=== PATIENT | male | born 1940 | race Caucasian/White ===

== ENCOUNTER → 2017-07-15 | Outpatient (CLI) | payer MEDICARE, BC ==
[2017-07-15 09:57] LABS: HCT 47.5 % (39.0-53.0); HGB 15.6 gm/dL (13.0-17.5); MCH 28.1 pg (25.0-35.0); MCHC 32.8 g/dL (31.0-37.0); MCV 85.7 fL (80.0-100.0); Platelet Count 185 k/uL (150-450); RBC 5.55 m/uL (4.30-5.90); WBC 8.9 k/uL (3.8-10.6)
[2017-07-15 10:06] LABS: INR 1.2 (<1.2); Prothrombin Time 11.7 sec (9.0-12.0)
[2017-07-15 10:17] LABS: ALT 34 U/L (21-72); AST 27 U/L (17-59); Alkaline Phosphatase 83 U/L (38-126); Anion Gap 10 mmol/L; Blood Urea Nitrogen 15 mg/dL (9-20); Calcium 9.3 mg/dL (8.4-10.2); Carbon Dioxide 29 mmol/L (22-30); Chloride 104 mmol/L (98-107); Glucose 101 mg/dL (74-99); Potassium 3.8 mmol/L (3.5-5.1); Sodium 143 mmol/L (137-145); Total Bilirubin 1.3 mg/dL (0.2-1.3); Total Protein 6.6 g/dL (6.3-8.2)
[2017-07-15 10:19] LABS: Amorphous Sediment,Urine Rare /hpf; Appearance,Urine Clear (Clear); Bilirubin,Urine Negative (Negative); Blood,Urine Negative (Negative); Color,Urine Yellow; Glucose,Urine (UA) Negative (Negative); Hyaline Casts,Urine 1 /lpf (0-2); Ketones,Urine Negative (Negative); Leukocyte Esterase,Urine Negative (Negative); Mucus,Urine Occasional /hpf; Nitrite,Urine Negative (Negative); Protein,Urine 1+ (Negative); RBC,Urine 1 /hpf (0-5); Specific Gravity,Urine 1.012 (1.001-1.035); Squamous Epithelial Cell,Urine <1 /hpf (0-4); Urobilinogen,Urine <2.0 mg/dL (<2.0); WBC,Urine 1 /hpf (0-5)
== END | disposition home or self-care (01) ==
LOC: LABPAT 09:14
PROVIDERS: ATTEND Orthopaedic Surgery
DX: Z01.812 Encounter for preprocedural laboratory examination (principal)
CPT/HCPCS: 36415; 80053; 81001; 85027; 85610; 85730; 87070

== ENCOUNTER → 2017-07-21 | Outpatient (CLI) | payer MEDICARE, BC | END | disposition home or self-care (01) | LOC: LABWHC1 11:24 | PROVIDERS: ATTEND Orthopaedic Surgery | DX: Z01.812 Encounter for preprocedural laboratory examination (principal) | CPT/HCPCS: 36415; 86850; 86900; 86901 ==

== ENCOUNTER 2017-07-26 05:45 | Inpatient (IN) | payer MEDICARE, BC ==
[2017-07-20 12:29] VITALS: BMI 25.4
[~2017-07-26 05:45] MED LIST: ACETAMINOPHEN TAB 500 MG TAB PO ONE; MORPHINE SULFATE 4 MG/ML SYRINGE IV PRN; ROPIVACAINE 246.25 MG, EPINEPHrine 0.5 MG, KETOROLAC 30 MG, cloNIDine HCL/PF 80 MCG, WA... MISCELLANE ONE; TRANEXAMIC ACID 1,000 MG in SODIUM CHLORIDE 0.9% 50 ML IVPB ONE; ceFAZolin IN SWFI 2 GM/20 ML SYRINGE IVP ONE
[2017-07-26] MEDS: MELOXICAM 7.5 MG TAB PO ONE ×2 (06:52→10:12)
[2017-07-26] MEDS ORDERED: ONDANSETRON 4 MG/2 ML VIAL ONE (07:04)
[2017-07-26] MEDS: LACTATED RINGERS 1,000 ML IV SCH ×2 (07:05→07:24)
[2017-07-26] MEDS ORDERED: MORPHINE SULFATE/PF 10MG/10ML VL IVP PRN ×3 (07:21)
[2017-07-26] MEDS ORDERED: DIAZEPAM 5 MG TAB PO PRN ×2 (07:21)
[2017-07-26] MEDS ORDERED: HYDROcodone/APAP 5-325MG 1 EACH TAB PO PRN (07:21)
[2017-07-26] MEDS ORDERED: MAGNESIUM HYDROXIDE 2,400 MG/10 ML CUP PO PRN (07:21)
[2017-07-26] MEDS ORDERED: NALOXONE 0.4 MG/ML 1 ML VIAL IV PRN (07:21)
[2017-07-26] MEDS ORDERED: hydrOXYzine PAMOATE 25 MG CAP PO PRN (07:21)
[2017-07-26] MEDS ORDERED: TRANEXAMIC ACID 1,000 MG/10 ML VIAL ONE (07:26)
[2017-07-26] MEDS ORDERED: ePHEDrine SULFATE/0.9% NACL/PF 50 MG/5 ML SYRINGE IV ONE (07:26)
[2017-07-26] MEDS ORDERED: SODIUM CHLORIDE 0.9% IRRIG 1,000 ML BTL IRRIGATION ONE (07:26)
[2017-07-26] MEDS ORDERED: MIDAZOLAM 2 MG/2 ML VIAL ONE (07:26)
[2017-07-26] MEDS ORDERED: HEPARIN SODIUM,PORCINE 10,000 UNIT/ML 1 ML VIAL ONE (07:26)
[2017-07-26] MEDS ORDERED: SODIUM CHLORIDE 0.9% 100 ML BAG ONE (07:26)
[2017-07-26] MEDS ORDERED: ceFAZolin 3,000 MG in SODIUM CHLORIDE 0.9% IRRIGATIO 3,000 ML IRRIGATION ONE (08:10)
[2017-07-26] MEDS ORDERED: APIXABAN 5 MG TAB PO SCH (09:00)
--- NOTE | 2017-07-26 09:19 | P.OP ---
Date of Procedure: 07/26/17 Preoperative Diagnosis: Severe osteoarthritis right hip Postoperative Diagnosis: Severe osteoarthritis right hip Procedure(s) Performed: Right total hip arthroplasty with a direct anterior approach Implants: Curry and nephew Polarstem size 4 standard Curry & Nephew R3, 3 hole acetabular shell, 52 mm Curry & Nephew reflection 6.5 mm cancellus screw, 20 mm 2 Curry & Nephew R3, XLPE 20 acetabular liner Curry & Nephew Oxinium femoral head 36 m, +4 All components were press-fit. The articulation is Oxinium on polyethylene. Anesthesia: spinal Surgeon: Kvng Heaton Sprue Knocker #1: Yumiko Crockett Estimated Blood Loss (ml): 450 (198 mL returned with Cell Saver) Pathology: other (Femoral head) Condition: stable Disposition: PACU Indications for Procedure: After failure of conservative treatment we discussed the surgical and nonsurgical treatment options at length. Patient wishes to proceed with a total hip arthroplasty with a direct anterior approach. Complications specific to this procedure were discussed at length, including but not limited to infection, leg length discrepancy, dislocation, and nerve injury. Patient is aware of all these complications and informed consent was obtained Operative Findings: The operative findings are consistent with severe osteoarthritis of the right hip Description of Procedure: Patient was seen and evaluated in the preoperative area, consent was reviewed, and the surgical site was marked with a skin marker. Patient was then brought to the operating room and given prophylactic antibiotics intravenously. 1 g of Tranexamic acid was also given. A spinal anesthetic was administered by the anesthesia department. The patient was then placed on the Bluford table with the bony prominences well-padded. The hip area was then prepped and draped in usual sterile fashion. A universal timeout was then performed, which confirmed the patient's name, surgical site, ALLERGIES, and procedure being performed. Next the incision site was located at 1 cm distal and 1 cm lateral to the anterior superior iliac spine. The skin and subcutaneous tissues were sharply incised. Incision was carefully dissected down to the fascia overlying the tensor fascia brianna muscle. This fascia was then incised in line with the incision. Next, using blunt finger dissection, the tensor fascia brianna muscle was dissected off its investing fascia. The muscle was then carefully retracted laterally with a cobra retractor over the lateral neck of the femur. Next, the circumflex vessels were identified and cauterized using the AquaMantis device. The anterior hip capsule was then exposed. The capsule was then opened and an inverted T fashion. Cobra retractors were then placed intracapsularly. The proximal femur was then visualized. The femoral neck was then osteotomized appropriate level above the lesser trochanter. Small amount of traction was placed with the Bluford table. A small wedge of bone was then removed from the remaining femoral head. Next, using a corkscrew femoral head was easily removed from the acetabulum. On gross visual inspection, the femoral head had complete loss of articular cartilage in multiple periarticular osteophytes. Attention was then turned to the acetabulum. the acetabulum was exposed and any remaining labrum was excised. Sequential reaming of the acetabulum was performed using fluoroscopic guidance. When the appropriate size was reached, a trial was then placed. The position and fit of the trial was checked with fluoroscopy. The trial was then removed. Then, using fluoroscopic guidance, the final implant was impacted at 20 of anteversion and 40 of abduction, and fully seated in the acetabulum. 2 screws were then placed in the acetabulum. Again fluoroscopy was used to check position of the screws. Next, the liner was then impacted, with a 20 elevated liner located in the anterior superior quadrant. Component locking was confirmed. Attention was then directed to the femur. With the aid of the Bluford table, the femur was externally rotated to approximately 130, extended, and abducted under the opposite leg. A side hook was then placed under the proximal femur, and the side hook elevator was used to elevate the proximal femur. Retractors were then placed. A capsular release was performed, as well as a release of the conjoined tendon, which afforded excellent visualization of the proximal femur. Next, a box osteotome was used to lateralize the proximal femur. A merchandise worker was then used to locate the femoral canal. Sequential broaching was then performed with appropriate size which afforded excellent fixation in the proximal femur. A trial was then placed with appropriate head and neck, and the hip was gently reduced with the aid of the Bluford table. Fluoroscopy was then used to check position of the components, as well as to ensure equal leg lengths. The hip was then gently dislocated and the trials were then removed. Final implants were then impacted and the hip was again reduced. Final fluoroscopic x-rays confirmed that the components were in anatomic position, as well as equal leg lengths. The hip was also taken through range of motion, and found to be stable. The hip was then copiously irrigated with antibiotic solution with pulsatile lavage. The hip was then irrigated with Irrisept solution. The soft tissues were then injected with a ropivacaine solution, which consisted of 246.25 mg of ropivacaine, 0.5 mg of epinephrine, 30 mg of Toradol, 80 g of clonidine, and 48.45 mL of sterile water, for a total of 100 mL of fluid injected. A second dose of 1 g of Tranexamic acid was also given. the fascia was then closed with 2-0 strata fix suture. The subcutaneous tissue was closed with 3-0 Vicryl. The subcuticular tissue was closed with 3-0 strata fix suture. The skin was then closed with Dermabond glue and a sterile silver dressing. The patient was then transferred to the recovery room in stable condition. The intellectual property legal assistant KELSEY Leach was required due to the complexity of surgery, and the need for skilled assembler surgical garment for positioning, draping, exposure, retraction, and closure of the wound.
[2017-07-26] MEDS ORDERED: LACTATED RINGERS 1,000 ML IV ONE (09:48)
--- NOTE | 2017-07-26 09:52 | XR ---
EXAMINATION TYPE: XR Hip Limited RT DATE OF EXAM: 07/26/2017 COMPARISON: NONE HISTORY: Status post hip surgery, TECHNIQUE: One view submitted. FINDINGS: There is a prosthetic hip in near anatomic alignment. There is soft tissue edema and emphysema. IMPRESSION: 1. Postoperative change. Appears in near-anatomic alignment.
--- NOTE | 2017-07-26 14:59 | FL ---
EXAMINATION TYPE: FL guidance operating room DATE OF EXAM: 07/26/2017 CLINICAL HISTORY: Right hip replacement. TECHNIQUE: Fluoroscopy. COMPARISON: None. FINDINGS: Fluoroscopic guidance was provided during right hip replacement procedure performed by Dr. Heaton. A total of 43 seconds of fluoroscopic time was utilized during the procedure and 2 spot i ntraoperative images are acquired. IMPRESSION: As Above.
[2017-07-26] MEDS: HYDROcodone/APAP 5-325MG 1 EACH TAB PO PRN ×2 (15:29→18:39)
[2017-07-26] MEDS: ceFAZolin IN SWFI 2 GM/20 ML SYRINGE IVP SCH (15:31)
--- NOTE | 2017-07-26 16:36 | P.CONS ---
History of Present Illness - Reason for Consult Consult date: 07/26/17 Medical management - History of Present Illness 77-year-old male patient of Dr. Haley with past medical history of persistent atrial fibrillation, coronary artery disease, status post CABG, hyperlipidemia, hypertension is admitted for elective right hip total arthroplasty with interior approach for severe osteoarthritis of right hip after failing conservative management. Patient was examined postoperatively. He denies any pain at the site of incision. He is resting comfortably in bed with no complaints of chest pain or shortness of breath, nausea or vomiting, abdominal pain, bleeding from any site, history of blood clots in the past. He does provide a history of triple bypass that was done 14 years ago after abnormal stress test. He had aortic aneurysm repair 6 weeks after his CABG. Patient is a ex-smoker and smoked 1 pack a day for 20 years. He lives with his and is functionally active. Vitals are stable with heart rate ranging from 59-80. No labs available. Review of Systems Constitutional: Denies chills, Denies fever, Denies lethargy, Denies malaise, Denies poor appetite, Denies weakness, Denies weight loss Eyes: denies decreased vision, denies diplopia, denies discharge, denies pain Ears: deny: decreased hearing Ears, nose, mouth and throat: Denies dental pain, Denies headache, Denies nasal discharge, Denies nose pain Cardiovascular: Denies chest pain, Denies decreased exercise tolerance, Denies edema, Denies high blood pressure, Denies irregular heart beat, Denies palpitations, Denies paroxysmal nocturnal dyspnea, Denies rapid heart beat, Denies shortness of breath Respiratory: Denies congestion, Denies cough, Denies cough with sputum, Denies dyspnea, Denies home oxygen, Denies wheezing Gastrointestinal: Denies abdominal pain, Denies change in bowel habits, Denies coffee ground emesis, Denies early satiety, Denies excessive gas, Denies heartburn, Denies hematemesis, Denies hematochezia, Denies loss of appetite, Denies nausea, Denies vomiting Genitourinary: Denies dysuria, Denies flank pain, Denies kidney stones, Denies menorrhagia, Denies urgency, Denies urinary frequency Musculoskeletal: Denies gait dysfunction, Denies limitation of motion, Denies morning stiffness, Denies muscle cramps Integumentary: Denies rash, Denies wounds, Denies brittle nails, Denies change in hair/nails, Denies darkening of skin Neurological: Denies balance difficulties, Denies change in speech, Denies double vision, Denies gait dysfunction, Denies loss of vision, Denies motor disturbance, Denies numbness, Denies paralysis, Denies paresthesias, Denies seizures Psychiatric: Denies anxiety, Denies depression Endocrine: Denies excessive sweating, Denies excessive thirst, Denies high blood sugars, Denies palpitations Hematologic/Lymphatic: Denies easy bruising, Denies lymphadenopathy Past Medical History Past Medical History: Atrial Fibrillation, Coronary Artery Disease (CAD), Hyperlipidemia, Hypertension, Myocardial Infarction ([place]), Osteoarthritis ([place]) Last Myocardial Infarction Date:: unknown History of Any Multi-Drug Resistant Organisms: None Reported Past Surgical History: Coronary Bypass/CABG, Heart Catheterization With Stent Additional Past Surgical History / Comment(s): triple bypass 14 years ago, aortic aneurysm repair, TRHA Past Anesthesia/Blood Transfusion Reactions: No Reported Reaction Date of Last Stent Placement:: unknown Past Psychological History: No Psychological Hx Reported Smoking Status: Former smoker Past Alcohol Use History: None Reported Additional Past Alcohol Use History / Comment(s): quit smoking 14 yrs. ago, 1ppd for 40 yrs. Past Drug Use History: None Reported - Past Family History Mother Family Medical History: No Reported History Father Family Medical History: Hypertension Additional Family Medical History / Comment(s): Patient states that his parents never went to the doctor. He thinks his father of hypertensive disease. He does not know much about his mother. Denies any significant medical history in siblings, is and has kids with no significant medical Medications and Allergies Home Medications Medication Instructions Recorded Confirmed Type Apixaban [Eliquis] 5 mg PO BID 07/21/17 07/26/17 History Atenolol [Tenormin] 50 mg PO BID 07/21/17 07/26/17 History Glucosamine Sulfate 500 mg PO DAILY 07/21/17 07/26/17 History Losartan [Cozaar] 12.5 mg PO DAILY 07/21/17 07/26/17 History Pravastatin Sodium [Pravachol] 40 mg PO HS 07/21/17 07/26/17 History Terazosin [Hytrin] 5 mg PO DAILY 07/21/17 07/26/17 History amLODIPine [Norvasc] 10 mg PO DAILY 07/21/17 07/26/17 History Allergies Allergy/AdvReac Type Severity Reaction Status Date / Time No Known Allergies Allergy Verified 07/26/17 10:19 Physical Exam Vitals: Vital Signs Temp Pulse Pulse Pulse Resp BP BP 07/26/17 14:45 98.2 F 59 L 16 128/79 07/26/17 12:10 73 116/69 07/26/17 12:09 59 L 110/69 07/26/17 12:00 80 108/75 07/26/17 11:45 53 L 111/72 07/26/17 11:15 62 115/71 07/26/17 11:00 76 107/68 07/26/17 10:45 77 115/70 07/26/17 10:30 77 111/70 07/26/17 10:15 97.6 F 70 16 111/69 07/26/17 10:00 75 16 124/72 07/26/17 09:45 77 16 130/72 07/26/17 09:30 82 16 116/62 07/26/17 09:25 97.1 F L 64 18 118/71 07/26/17 06:32 97.8 F 76 18 137/72 Pulse Ox 07/26/17 14:45 98 07/26/17 12:10 07/26/17 12:09 07/26/17 12:00 07/26/17 11:45 07/26/17 11:15 07/26/17 11:00 07/26/17 10:45 07/26/17 10:30 07/26/17 10:15 92 L 07/26/17 10:00 97 07/26/17 09:45 97 07/26/17 09:30 07/26/17 09:25 95 07/26/17 06:32 96 Intake and Output 07/26/17 07/26/17 07/26/17 06:59 14:59 22:59 Intake Total 1001 Output Total 450 Balance 551 Intake: IV 1001 Output: Estimated Blood Loss 450 Other: Weight 78.018 kg - Constitutional General appearance: cooperative, no acute distress, obese - EENT Eyes: anicteric sclerae, PERRLA, normal appearance ENT: hearing grossly normal - Neck Neck: no lymphadenopathy, normal ROM, no other, no rigidity, no stridor, no thyromegaly - Respiratory Respiratory: bilateral: CTA, negative: diminished, dullness, rales, rhonchi - Cardiovascular Rhythm: Irregularly irregular, rate controlled Heart sounds: normal: S1, S2 Abnormal Heart Sounds: no systolic murmur, no diastolic murmur, no rub, no S3 Gallop, no S4 Gallop, no click, no other - Gastrointestinal General gastrointestinal: normal bowel sounds, soft - Integumentary Integumentary: no rash - Neurologic Neurologic: CNII-XII intact - Musculoskeletal Musculoskeletal: Right hip with Site of incision with no overlying erythema or tenderness. strength equal bilaterally - Psychiatric Psychiatric: A&O x's 3, appropriate affect Assessment and Plan Plan: #1 postoperative day 0 right total hip arthroplasty with anterior approach for severe osteoarthritis of right hip. Pain control as per primary team. Patient would need anticoagulation. He is on an eliquis at home for his atrial fibrillation. PTOT consult, encourage ambulation. Incentive spirometry for pulmonary prophylaxis. I will start patient on bowel regimen as patient is on a medication #2 atrial fibrillation, rate controlled. Continue eliquis 5 mg twice a day. I switched patient's atenolol to metoprolol 12.5 mg twice a day for better rate control #3 hypertension continue Norvasc and losartan #4 coronary artery disease status post CABG continue pravastatin, metoprolol, and eliquis #4 BPH continue terazosin 5 mg by mouth daily #5 GI prophylaxis with Pepcid 20 mg daily CODE STATUS full code Thank you for the consult I would be happy to assist you in patient's medical need while they are in hospital
[2017-07-26] MEDS: METOPROLOL TARTRATE 12.5 MG TAB PO SCH (20:24)
[2017-07-26] MEDS ORDERED: SENNOSIDES-DOCUSATE SODIUM 1 EACH TAB PO SCH (21:00)
[2017-07-26] MEDS ORDERED: PRAVASTATIN SODIUM 40 MG TAB PO SCH (21:00)
[2017-07-26] MEDS ORDERED: ATENOLOL 50 MG TAB PO SCH (21:00)
[2017-07-26] MEDS: SODIUM CHLORIDE 0.9% 1,000 ML IV SCH (21:39)
[2017-07-27] MEDS: ceFAZolin IN SWFI 2 GM/20 ML SYRINGE IVP SCH (00:22)
[2017-07-27] MEDS: LACTATED RINGERS 1,000 ML IV SCH (00:23)
[2017-07-27] MEDS: SODIUM CHLORIDE 0.9% 1,000 ML IV SCH (00:25)
[2017-07-27 02:55] VITALS: RESP 16
[2017-07-27] MEDS: HYDROcodone/APAP 5-325MG 1 EACH TAB PO PRN (07:21)
[2017-07-27] MEDS: METOPROLOL TARTRATE 12.5 MG TAB PO SCH (07:23)
[2017-07-27 08:21] VITALS: BP 136/82; PULSE 92; TEMP 97.1
[2017-07-27 08:43] LABS: Basophils % (A) 0 %; Eosinophils # (A) 0.1 k/uL (0-0.7); Eosinophils % (A) 1 %; HGB 12.7 gm/dL (13.0-17.5); Lymphocytes # (A) 0.6 k/uL (1.0-4.8); Lymphocytes % (A) 7 %; MCH 28.5 pg (25.0-35.0); MCHC 34.2 g/dL (31.0-37.0); MCV 83.4 fL (80.0-100.0); Mean Platelet Volume 7.9; Monocytes # (A) 0.6 k/uL (0-1.0); Monocytes % (A) 7 %; Neutrophils # (A) 7.1 k/uL (1.3-7.7); Neutrophils % (A) 83 %; Platelet Count 150 k/uL (150-450); RBC 4.43 m/uL (4.30-5.90); RDW 13.7 % (11.5-15.5); WBC 8.5 k/uL (3.8-10.6)
[2017-07-27] MEDS ORDERED: FAMOTIDINE 20 MG TAB PO SCH (09:00)
[2017-07-27] MEDS ORDERED: APIXABAN 5 MG TAB PO SCH (09:00)
[2017-07-27] MEDS ORDERED: amLODIPine 10 MG TAB PO SCH (09:00)
[2017-07-27] MEDS ORDERED: LOSARTAN 25 MG TAB PO SCH (09:00)
[2017-07-27] MEDS ORDERED: DOXAZOSIN 4 MG TAB PO SCH (09:00)
--- NOTE | 2017-07-27 09:20 | P.DS ---
Providers Date of admission: 07/26/17 05:45 Expected date of discharge: 07/27/17 Attending physician: Kvng Heaton Consults: 07/26/17 07:21 Consult Physician Routine Consulting Provider: Isaiah Haley Consult Reason/Comments: medical management Do you want consulting provider notified?: Yes Primary care physician: Isaiah Haley - Discharge Diagnosis(es) (1) Primary osteoarthritis of right hip Current Visit: Yes Status: Acute (2) S/P total hip arthroplasty Current Visit: Yes Status: Acute Hospital Course: This is a 77-year-old male with known history of degenerative arthritis of the right hip. The patient presents for evaluation. After discussion and consideration patient elects to proceed with total hip arthroplasty. The patient is seen preoperatively by Dr. Heaton and medically cleared for surgery by their primary care physician. Patient is admitted to [facility] on 07/26/2017 for total hip arthroplasty. The procedures performed without complication or sequelae. The patient is doing well postoperatively. Labs and vital signs are stable on day of discharge. On day of discharge patient's hip incision is healing well. There is minimal erythema. There is no drainage noted at this time. There is minimal soft tissue swelling to the hip and thigh. Patient has full foot and ankle motion without difficulty or pain. Neurovascular status to the right lower extremity is intact. Patient is discharged home in good condition. Please see med rec for accurate list of home medications. Plan - Discharge Summary Discharge Rx Participant: Yes New Discharge Prescriptions: New Apixaban [Eliquis] 5 mg PO BID #60 tab HYDROcodone/APAP 5-325MG [[place] 5-325] 1 - 2 tab PO Q4-6H PRN #90 tab PRN Reason: Pain Sennosides [Senokot] 1 tab PO BID #60 tablet No Action Terazosin [Hytrin] 5 mg PO DAILY Pravastatin Sodium [Pravachol] 40 mg PO HS amLODIPine [Norvasc] 10 mg PO DAILY Losartan [Cozaar] 12.5 mg PO DAILY Glucosamine Sulfate 500 mg PO DAILY Atenolol [Tenormin] 50 mg PO BID Apixaban [Eliquis] 5 mg PO BID Discharge Medication List Apixaban [Eliquis] 5 mg PO BID 07/21/17 [History] Atenolol [Tenormin] 50 mg PO BID 07/21/17 [History] Glucosamine Sulfate 500 mg PO DAILY 07/21/17 [History] Losartan [Cozaar] 12.5 mg PO DAILY 07/21/17 [History] Pravastatin Sodium [Pravachol] 40 mg PO HS 07/21/17 [History] Terazosin [Hytrin] 5 mg PO DAILY 07/21/17 [History] amLODIPine [Norvasc] 10 mg PO DAILY 07/21/17 [History] Apixaban [Eliquis] 5 mg PO BID #60 tab 07/27/17 [Rx] HYDROcodone/APAP 5-325MG [Macon 5-325] 1 - 2 tab PO Q4-6H PRN #90 tab 07/27/17 [ Rx] Sennosides [Senokot] 1 tab PO BID #60 tablet 07/27/17 [Rx] Follow up Appointment(s)/Referral(s): [facility], [NON-STAFF] - Kvng Heaton DO [Doctor of Osteopathic Medicine] - 2 Weeks Activity/Diet/Wound Care/Special Instructions: Weightbearing as tolerated with walker Leave dressing intact. Dressing may be removed by home care nurse in 10-14 days. May shower with dressing on. Follow-up with [facility] in 2 weeks, please call with any questions or concerns [phone] Discharge Disposition: HOME WITH HOME HEALTH SERVICES
== END 2017-07-27 14:50 | disposition home health service (06) | DRG 470 ==
LOC: 2ORMAIN 05:45 → 3SUR 09:17
PROVIDERS: ADMIT Orthopaedic Surgery; ATTEND Orthopaedic Surgery
PROC: 30233N0 Transfusion of Autologous Red Blood Cells into Peripheral Vein, Percutaneous Approach (ICD-10-PCS; 2017-07-26)
PROC: 0SR906A Replacement of Right Hip Joint with Oxidized Zirconium on Polyethylene Synthetic Substitute, Uncemented, Open Approach (ICD-10-PCS; principal; 2017-07-26 07:30)
DX: M16.11 Unilateral primary osteoarthritis, right hip (principal); I48.1 Persistent atrial fibrillation; I25.10 Atherosclerotic heart disease of native coronary artery without angina pectoris; E78.2 Mixed hyperlipidemia; M25.751 Osteophyte, right hip; I48.2 Chronic atrial fibrillation; N40.0 Benign prostatic hyperplasia without lower urinary tract symptoms; H91.90 Unspecified hearing loss, unspecified ear; I10 Essential (primary) hypertension; Z87.891 Personal history of nicotine dependence; I25.2 Old myocardial infarction; Z95.1 Presence of aortocoronary bypass graft; Z82.49 Family history of ischemic heart disease and other diseases of the circulatory system; Z79.899 Other long term (current) drug therapy; Z79.01 Long term (current) use of anticoagulants; Z79.82 Long term (current) use of aspirin; Z83.3 Family history of diabetes mellitus; Z86.79 Personal history of other diseases of the circulatory system; Z95.5 Presence of coronary angioplasty implant and graft
CPT/HCPCS: 36415; 73501; 85025; 86850; 86891; 86900; 86901; 88300

== ENCOUNTER → 2018-02-04 | Outpatient (CLI) | payer MEDICARE, BC ==
--- NOTE | 2018-02-05 19:15 | CT ---
EXAMINATION TYPE: CT abdomen pelvis w con DATE OF EXAM: 02/04/2018 COMPARISON: None HISTORY: Left lower quadrant pain for one week. History of abdominal aortic aneurysm with stent place ment. CT DLP: 1089 mGycm Automated exposure control for dose reduction was used. TECHNIQUE: Helical acquisition of images was performed from the lung bases through the pelvis. CONTRAST: Performed with Oral Contrast and with IV Contrast, patient injected with 100 mL of Isovue 300. FINDINGS: LUNG BASES: Motion artifact is seen in addition to bibasilar subsegmental atelectasis. LIVER/GB: The liver is grossly unremarkable. Gallbladder is elongated measuring 0.6 cm although the c ommon bile duct appears nondilated and there are no right upper quadrant fat stranding changes. PANCREAS: No significant abnormality is seen. SPLEEN: Hypoattenuated subcentimeter lesion is seen within the spleen near the dome of the diaphragm likely related to a small cyst. ADRENALS: Indeterminant 2.2 cm left adrenal gland nodule meets from the lateral odette and right adrena l gland indeterminate nodule measuring proximally 1.3 cm emanates from the right adrenal gland as wel l. These are incompletely characterized. KIDNEYS: There is severe left cortical renal atrophy. A 3.9 cm renal cyst emanates from the posterior left kidney. No hydronephrosis bilaterally. Right kidney is unremarkable although there is suspicion for a 2 mm nonobstructing right lower pole renal calculus. FREE AIR: No free air is visualized. REPRODUCTIVE ORGANS: Prostate gland is obscured by spray artifact from the right hip arthroplasty. URINARY BLADDER: Circumferential thickening may relate to incomplete distention or cystitis. Correla te with urinalysis.. ADENOPATHY: No greater than 1 cm short axis lymph node is identified within the abdomen or pelvis OSSEOUS STRUCTURES: Right hip arthroplasty is present crating extensive spray artifact and partially limiting evaluation of the pelvis. Multilevel moderate degenerative changes of the osseous structure s are seen. BOWEL: There is a moderate hiatal hernia. Multiple colonic diverticula are scattered throughout the colon without pericolonic fat stranding. Slight nodular thickening is seen at the junction of the vladimir cending colon and sigmoid colon possibly related to incomplete distention. Moderate colonic stool bur den partially limits evaluation. There are multiple loops of prominent and some loops of dilated smal l bowel containing air-fluid levels the largest within the left mid abdomen measuring 4.3 cm, however contrast does extend beyond the loops into the large bowel and therefore complete obstruction is exc luded. Few loops of small bowel within the left midabdomen also display bowel wall thickening. 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 1.8 cm in size. Ectasia of the thoracic aorta just before the diaphragmatic hiatus is seen measuring 3.2 cm. Extensiv e calcific and noncalcific mural plaquing is seen of the abdominal aorta and its branches. Endograft begins just below the level of the renal arteries and extends into the iliac arteries and appears pat ent. Infrarenal abdominal aortic aneurysm measures up to 3.9 x 3.9 cm extending approximately 7 cm in length. This is a fusiform aneurysm. Saccular outpouching is also seen just below the right renal ar han where the aorta measures 3.0 cm on coronal series 5 image 54. IMPRESSION: 1. Multiple loops of matted small bowel in the left mid abdomen with few mildly dilated loops of smal l bowel, air-fluid levels and some small bowel loops contain bowel wall thickening. Enteritis of infe ctious or inflammatory etiology is suspected. There is also mesenteric congestion in this region. Mil d ileus is also present with complete obstruction excluded as contrast extends into the colon. 2. Indeterminant adrenal gland nodules for which full characterization with dynamic enhanced CT abdom en or MR abdomen is recommended. 3. 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 4. Infrarenal saccular outpouching of the abdominal aorta and infrarenal abdominal aortic aneurysm wi th aortoiliac endograft. Mechoopda aortic lumen measures up to 3.9 x 3.9 cm.
== END | disposition home or self-care (01) ==
LOC: RADCTMAIN 14:37
PROVIDERS: ATTEND Internal Medicine
DX: R10.30 Lower abdominal pain, unspecified (principal); K63.89 Other specified diseases of intestine; R91.8 Other nonspecific abnormal finding of lung field; I70.8 Atherosclerosis of other arteries; I71.4 Abdominal aortic aneurysm, without rupture; I77.4 Celiac artery compression syndrome
CPT/HCPCS: 74177; Q9967

== ENCOUNTER 2018-02-05 23:36 | Inpatient (IN) | payer MEDICARE, BC ==
[2018-02-05] MEDS ORDERED: ASPIRIN 81 MG PO STA (23:57)
[2018-02-06] MEDS ORDERED: ONDANSETRON 4 MG/2 ML VIAL IVP STA (00:08)
[2018-02-06 00:22] LABS: Basophils % (A) 0 %; Eosinophils # (A) 0.1 k/uL (0-0.7); Eosinophils % (A) 1 %; HCT 46.1 % (39.0-53.0); HGB 15.1 gm/dL (13.0-17.5); Lymphocytes # (A) 0.7 k/uL (1.0-4.8); Lymphocytes % (A) 6 %; MCH 27.9 pg (25.0-35.0); MCHC 32.8 g/dL (31.0-37.0); MCV 85.1 fL (80.0-100.0); Mean Platelet Volume 8.3; Monocytes # (A) 0.4 k/uL (0-1.0); Monocytes % (A) 3 %; Neutrophils # (A) 10.3 k/uL (1.3-7.7); Neutrophils % (A) 89 %; Platelet Count 171 k/uL (150-450); RBC 5.41 m/uL (4.30-5.90); RDW 13.6 % (11.5-15.5); WBC 11.6 k/uL (3.8-10.6)
--- NOTE | 2018-02-06 00:31 | XR ---
EXAMINATION TYPE: XR chest 2V DATE OF EXAM: 02/06/2018 COMPARISON: NONE HISTORY: Chest pain TECHNIQUE: Frontal and lateral views of the chest are obtained. FINDINGS: Heart is enlarged. There is no gross heart failure. There is poor inspiration. There are s ternal wires. There are chest leads. Thoracic aorta is atheromatous. There is linear density in the l eft lower lobe. IMPRESSION: No heart failure. There is some mild linear infiltrate and atelectasis in the left lower lobe.
[2018-02-06 00:32] LABS: Albumin 3.3 g/dL (3.5-5.0); Calcium 8.5 mg/dL (8.4-10.2); INR 1.3 (<1.2); Magnesium 2.1 mg/dL (1.6-2.3); Partial Thromboplastin Time 24.7 sec (22.0-30.0); Prothrombin Time 12.2 sec (9.0-12.0); Total Bilirubin 2.2 mg/dL (0.2-1.3); Total Protein 5.8 g/dL (6.3-8.2)
[2018-02-06 00:42] LABS: Creatine Kinase 86 U/L (55-170)
[2018-02-06 00:55] LABS: Creatine Kinase MB 3.5 ng/mL (0.0-2.4); Troponin I <0.012 ng/mL (0.000-0.034)
[2018-02-06 01:01] LABS: Potassium 3.8 mmol/L (3.5-5.1)
--- NOTE | 2018-02-06 01:22 | ED ---
General Adult HPI - General Chief complaint: Abdominal Pain Stated complaint: Chest Pain Source: patient, EMS Mode of arrival: EMS Limitations: no limitations - History of Present Illness Initial comments: Dictation was produced using [employer] dictation software. please excuse any grammatical, word or spelling errors. Chief Complaint: 78-year-old male past medical history of A. fib, coronary artery disease, distal edema, hypertension presents with epigastric abdominal pain. History of Present Illness: States that his symptoms began approximately 10 PM today. Patient state he ate of being hot dog and a salad prior to the onset of symptoms. Several minutes later he began having epigastric pain. Patient has similar episode approximately 1 week ago. Patient's feeling nauseous however has not have any episodes of emesis. Patient has been having bowel movements. Patient localizes the pain to his epigastric area with radiation to the back. She denies abdominal surgery. The ROS documented in this emergency department record has been reviewed and confirmed by me. Those systems with pertinent positive or negative responses have been documented in the HPI. All other systems are other negative and/or noncontributory. - Related Data Home Medications Medication Instructions Recorded Confirmed Apixaban [Eliquis] 5 mg PO BID 07/21/17 07/26/17 Glucosamine Sulfate 500 mg PO DAILY 07/21/17 07/26/17 Losartan [Cozaar] 12.5 mg PO DAILY 07/21/17 07/26/17 Pravastatin Sodium [Pravachol] 40 mg PO HS 07/21/17 07/26/17 Terazosin [Hytrin] 5 mg PO DAILY 07/21/17 07/26/17 amLODIPine [Norvasc] 10 mg PO DAILY 07/21/17 07/26/17 Previous Rx's Medication Instructions Recorded Apixaban [Eliquis] 5 mg PO BID #60 tab 07/27/17 HYDROcodone/APAP 5-325MG [[place] 1 - 2 tab PO Q4-6H PRN #90 tab 07/27/17 5-325] Metoprolol Tartrate [Lopressor] 12.5 mg PO BID #60 dose 07/27/17 Sennosides [Senokot] 1 tab PO BID #60 tablet 07/27/17 Allergies Allergy/AdvReac Type Severity Reaction Status Date / Time No Known Allergies Allergy Verified 07/26/17 10:19 Review of Systems ROS Statement: Those systems with pertinent positive or pertinent negative responses have been documented in the HPI. ROS Other: All systems not noted in ROS Statement are negative. Past Medical History Past Medical History: Atrial Fibrillation, Coronary Artery Disease (CAD), Hyperlipidemia, Hypertension, Myocardial Infarction (VA), Osteoarthritis (OA) Last Myocardial Infarction Date:: unknown History of Any Multi-Drug Resistant Organisms: None Reported Past Surgical History: Coronary Bypass/CABG, Heart Catheterization With Stent Additional Past Surgical History / Comment(s): triple bypass 14 years ago, aortic aneurysm repair, TRHA Past Anesthesia/Blood Transfusion Reactions: No Reported Reaction Date of Last Stent Placement:: unknown Past Psychological History: No Psychological Hx Reported Smoking Status: Former smoker Past Alcohol Use History: None Reported Past Drug Use History: None Reported - Past Family History Mother Family Medical History: No Reported History Father Family Medical History: Hypertension Additional Family Medical History / Comment(s): Patient states that his parents never went to the doctor. He thinks his father of hypertensive disease. He does not know much about his mother. Denies any significant medical history in siblings, is and has kids with no significant medical General Exam - General Exam Comments Initial Comments: PHYSICAL EXAM: General Impression: Alert and oriented x3, acute distress secondary to pain HEENT: Normocephalic atraumatic, extra-ocular movements intact, pupils equal and reactive to light bilaterally, mucous membranes moist. Cardiovascular: Heart regular rate and rhythm, S1&S2 audible, no murmurs, rubs or gallops Chest: Lungs clear to auscultation bilaterally, no rhonchi, no wheeze, no rales Abdomen: Distended abdomen, tympanitic to percussion tenderness to palpation diffusely worse in the epigastric area Musculoskeletal: Pulses present and equal in all extremities, no peripheral edema Motor: Power 5/5 bilaterally, no focal deficits noted Neurological: CN II-XII grossly intact, no focal motor or sensory deficits noted Skin: Intact with no visualized rashes Psych: Normal affect and mood Limitations: no limitations Course Vital Signs 02/05/18 02/06/18 23:37 03:54 Pulse Rate 79 83 Respiratory 18 18 Rate Blood Pressure 147/89 116/68 O2 Sat by Pulse 97 97 Oximetry Medical Decision Making - Medical Decision Making ED course: 78-year-old male presents with chief complaint of abdominal pain. Vital signs upon arrival are within acceptable limits. Patient is not febrile. Laboratory evaluation obtained. Leukocytosis of 11.6. Coag panel shows an INR of 1.3. Metabolic panel is unremarkable except for some hyperglycemia 156 per total bilirubin is 2.2, alk phos is 186. Cardiac enzymes are negative. Lipase of 528. EKG does not show any signs of VA versus ischemia. Laboratory evaluation obtained. Leukocytosis of 11.6. Coag panel is unremarkable. Metabolic panel is positive for total bilirubin of 2.2. There is mild transaminitis. Lipase of 528. Abdominal x-ray was obtained showing small bowel ileus. There was concern of gallbladder pathology given patient had postprandial symptoms. Ultrasound was suggestive of cholecystitis. Discussed patient case with general surgeon who requests patient be admitted to medicine service with general surgery consult. General surgery also requests cardiology consult for cardiac clearance. She started on antibiotics. She'll be admitted to medicine. EKG Interpretation: A 12 lead EKG was obtained. It was interpreted by myself and attending physician. There is a P wave before every QRS complex. Rate is 80. Rhythm is fibrillation, QRS 114, QTc 472.. QT is not prolonged. No ST segment depression or elevation. . Overall, this EKG is unremarkable - Lab Data Result diagrams: 02/06/18 00:05 02/06/18 00:05 Lab Results 02/06/18 02/06/18 02/06/18 Range/Units 00:05 00:05 00:05 WBC 11.6 H (3.8-10.6) k/uL RBC 5.41 (4.30-5.90) m/uL Hgb 15.1 (13.0-17.5) gm/dL Hct 46.1 (39.0-53.0) % MCV 85.1 (80.0-100.0) fL MCH 27.9 (25.0-35.0) pg MCHC 32.8 (31.0-37.0) g/dL RDW 13.6 (11.5-15.5) % Plt Count 171 (150-450) k/uL Neutrophils % 89 % Lymphocytes % 6 % Monocytes % 3 % Eosinophils % 1 % Basophils % 0 % Neutrophils # 10.3 H (1.3-7.7) k/uL Lymphocytes # 0.7 L (1.0-4.8) k/uL Monocytes # 0.4 (0-1.0) k/uL Eosinophils # 0.1 (0-0.7) k/uL Basophils # 0.0 (0-0.2) k/uL PT (9.0-12.0) sec INR (<1.2) APTT (22.0-30.0) sec Sodium 138 (137-145) mmol/L Potassium 3.8 (3.5-5.1) mmol/L Chloride 103 (98-107) mmol/L Carbon Dioxide 26 (22-30) mmol/L Anion Gap 9 mmol/L BUN 27 H (9-20) mg/dL Creatinine 0.95 (0.66-1.25) mg/dL Est GFR (CKD-EPI)AfAm 88 (>60 ml/min/1.73 sqM) Est GFR (CKD-EPI)NonAf 76 (>60 ml/min/1.73 sqM) Glucose 156 H (74-99) mg/dL Calcium 8.5 (8.4-10.2) mg/dL Magnesium 2.1 (1.6-2.3) mg/dL Total Bilirubin 2.2 H (0.2-1.3) mg/dL AST 142 H (17-59) U/L ALT 65 (21-72) U/L Alkaline Phosphatase 186 H (38-126) U/L Total Creatine Kinase 86 (55-170) U/L CK-MB (CK-2) 3.5 H (0.0-2.4) ng/mL CK-MB (CK-2) Rel Index 4.1 Troponin I <0.012 (0.000-0.034) ng/mL Total Protein 5.8 L (6.3-8.2) g/dL Albumin 3.3 L (3.5-5.0) g/dL Lipase 528 H (23-300) U/L 02/06/18 Range/Units 00:05 WBC (3.8-10.6) k/uL RBC (4.30-5.90) m/uL Hgb (13.0-17.5) gm/dL Hct (39.0-53.0) % MCV (80.0-100.0) fL MCH (25.0-35.0) pg MCHC (31.0-37.0) g/dL RDW (11.5-15.5) % Plt Count (150-450) k/uL Neutrophils % % Lymphocytes % % Monocytes % % Eosinophils % % Basophils % % Neutrophils # (1.3-7.7) k/uL Lymphocytes # (1.0-4.8) k/uL Monocytes # (0-1.0) k/uL Eosinophils # (0-0.7) k/uL Basophils # (0-0.2) k/uL PT 12.2 H (9.0-12.0) sec INR 1.3 H (<1.2) APTT 24.7 (22.0-30.0) sec Sodium (137-145) mmol/L Potassium (3.5-5.1) mmol/L Chloride (98-107) mmol/L Carbon Dioxide (22-30) mmol/L Anion Gap mmol/L BUN (9-20) mg/dL Creatinine (0.66-1.25) mg/dL Est GFR (CKD-EPI)AfAm (>60 ml/min/1.73 sqM) Est GFR (CKD-EPI)NonAf (>60 ml/min/1.73 sqM) Glucose (74-99) mg/dL Calcium (8.4-10.2) mg/dL Magnesium (1.6-2.3) mg/dL Total Bilirubin (0.2-1.3) mg/dL AST (17-59) U/L ALT (21-72) U/L Alkaline Phosphatase (38-126) U/L Total Creatine Kinase (55-170) U/L CK-MB (CK-2) (0.0-2.4) ng/mL CK-MB (CK-2) Rel Index Troponin I (0.000-0.034) ng/mL Total Protein (6.3-8.2) g/dL Albumin (3.5-5.0) g/dL Lipase (23-300) U/L Disposition Clinical Impression: Cholecystitis Disposition: ADMITTED IP TO THIS [facility] Condition: Fair Referrals: Isaiah Haley MD [Primary Care Provider] - 1-2 days Decision Time: 04:04
--- NOTE | 2018-02-06 02:00 | XR ---
EXAMINATION TYPE: XR abdomen 1V DATE OF EXAM: 02/06/2018 COMPARISON: NONE HISTORY: Abdominal pain TECHNIQUE: 2 views supine FINDINGS: There is some contrast in the large bowel. There is no evidence of a mechanical bowel obstr uction. There is right hip prosthesis. There is vascular calcification. I see no evidence of pneumope ritoneum. Lung bases appear clear of consolidation. There is some distended gas-filled loop of small bowel in the mid abdomen. IMPRESSION: There is probably some small bowel ileus. No free air.
--- NOTE | 2018-02-06 03:18 | US ---
EXAMINATION TYPE: US abdomen complete DATE OF EXAM: 02/06/2018 COMPARISON: CT 02/04/2018 CLINICAL HISTORY: Pain. Mid abd pain EXAM MEASUREMENTS: US exam is technically limited due to overlying bowel gas. Liver Length: 15.4 cm Gallbladder Wall: 0.3 cm CBD: 0.6 cm Spleen: 11.8 cm Right Kidney: 13.7 x 7.0 x 6.4 cm Left Kidney: 12.5 x 6.6 x 5.7 cm Pancreas: Obscured by bowel gas Liver: limited views as was scanned intercostally Gallbladder: internal contents with sludge appearance with non mobility of contents due to decreased patient positioning due to pain; increased length as > 10.0cm for consideration of hydropic gallblad yuli; wall at upper limits of normal Evidence for sonographic Calderon's sign: tender here CBD: upper limites of normal Spleen: wnl Right Kidney: couple of cortical cysts seen with larger medial mid pole = 1.1 x 0.8 x 0.7cm; hyperec hoic focus with shadowing, noted in lower pole may correspond to CT finding of small renal calculus Left Kidney: distorted appearance to cortex; couple of cortical cysts with larger simple cyst size = 3.0 x 2.9 x 3.6cm Upper IVC: wnl Abd Aorta: only small upper portion seen due to overlying bowel gas IMPRESSION: Dilated gallbladder suggestive of cholecystitis and cystic duct obstruction. No dilated d ucts. Bilateral renal cortical cysts measure up to 3 cm. No hydronephrosis. Small calculus lower pole of the right kidney. Significant cortical thinning seen in the left kidney. Gallbladder is probably not changed in size compared to CT scan 02/04/2018.
[2018-02-06] MEDS ORDERED: metroNIDAZOLE-NS PMX 500 MG in SALINE 1 100ML.BAG IVPB STA (03:24)
[2018-02-06] MEDS ORDERED: NALOXONE 0.4 MG/ML 1 ML VIAL IV PRN (04:00)
[2018-02-06] MEDS ORDERED: MORPHINE SULFATE 4 MG/ML SYRINGE IVP PRN (04:32)
[2018-02-06] MEDS ORDERED: ONDANSETRON 4 MG/2 ML VIAL IVP PRN (04:34)
[2018-02-06 05:26] VITALS: BMI 22.3
--- NOTE | 2018-02-06 09:34 | CONS ---
CONSULTATION CHIEF COMPLAINT: Preop cardiac evaluation. HISTORY: Mr. Lyman is a 78-year-old gentleman with history of chronic atrial fibrillation, who follows with my associate, Dr. VC Faye, on a regular basis. He has presented to hospital with abdominal pain and has elevated liver enzymes. The patient is currently being considered for possible cholecystectomy. His cardiac history is significant for chronic atrial fibrillation, for which he takes Eliquis, and coronary artery disease, status post bypass surgery. The patient denies chest pain, difficulty in breathing, palpitations, dizziness or syncope. The patient had an echocardiogram and stress test in July of this year prior to hip replacement and apparently stress test was unremarkable. EKG shows atrial fibrillation with controlled ventricular rate. He last took his Eliquis yesterday evening. Clinically patient is fairly active and is free of symptoms. PAST MEDICAL HISTORY: Significant for coronary artery disease status post CABG, hypertension, dyslipidemia, chronic atrial fibrillation. MEDICATIONS: 1. Eliquis 5 b.i.d. 2. Norvasc 10 daily. 3. Hytrin 5 daily. 4. Senokot. 5. Pravachol. 6. Lopressor. 7. Cozaar. ALLERGIES: There are no known drug allergies. FAMILY HISTORY: Negative for premature coronary artery disease. SOCIAL HISTORY: Negative for smoking, EtOH abuse, or drug abuse. REVIEW OF SYSTEMS: HEENT is unremarkable. CARDIAC: As described above. RESPIRATORY: Negative. GI: Significant for abdominal pain. GENITOURINARY: Negative. ALLERGY/MUSCULOSKELETAL: Significant for arthritis. PSYCH/SOCIAL: Negative. HEMATOLOGIC: Negative. CONSTITUTIONAL: Negative. ONCOLOGIC: Negative. ENVIRONMENTAL COMPLIANCE MANAGER: Negative. The rest of the system review is not relevant. EXAM: Comfortable at rest. Vital signs are stable. There is no jugular venous distention. Chest exam reveals good air entry bilaterally. Heart exam reveals first and second heart sounds, irregular rhythm, and a systolic murmur at the apex. Abdomen is soft, nontender. Exam of the extremities did not reveal any edema. Peripheral pulses are felt. LABS: Hemoglobin is 15.1, platelet count is 170,000. Potassium is 3.8, creatinine is 0.95. AST is 142, ALT 65, bilirubin is elevated. Troponin is negative. ASSESSMENT: 1. Preoperative cardiac evaluation. 2. Chronic atrial fibrillation. 3. Coronary artery disease, status post coronary artery bypass grafting. 4. Acute cholecystitis. PLAN: From cardiac standpoint, the patient is an acceptable risk candidate for surgery under anesthesia. The patient is clinically better. Resume the Norvasc, Lopressor, and Cozaar that he was on. Hold the Pravachol until the surgery is done. Please hold the Eliquis at this time. Ideally the patient should hold the Eliquis for 48 hours prior to surgery. Thank you for giving us the privilege to participate in the care of this pleasant gentleman. MMYNESL / IJN: [id number] /
[2018-02-06] MEDS ORDERED: DOXAZOSIN 4 MG TAB PO STA (11:23)
--- NOTE | 2018-02-06 11:31 | CONS ---
CONSULTATION DATE OF DICTATION: February 06, 2018. REQUESTING PHYSICIAN: Dr. Haley. REASON FOR CONSULTATION: Epigastric pain and elevated LFTs. HISTORY OF PRESENT ILLNESS: The patient is a 78-year-old pleasant white male who was admitted to the hospital with acute onset of severe epigastric pain that started at 9:00 pm yesterday. The patient has history of atrial fibrillation on Eliquis. The pain began around 9:00 pm, continued to progressively get worse. Nausea but no emesis. Came to the emergency room and subsequently was noted to have elevated mild elevation of bilirubin and mild elevation of LFTs and hence he was admitted to the hospital for further evaluation. He had a similar episode a week ago that lasted for a few hours and subsided. This morning he is feeling better. No nausea, no vomiting. No further episodes of abdominal pain. No fever, chills, or night sweats. PAST MEDICAL HISTORY: Atrial fibrillation on Eliquis, hypertension, hypercholesteremia. MEDICATIONS: At home include Eliquis, pravastatin, Cozaar, Hytrin, Norvasc. ALLERGIES: None. PAST SURGICAL HISTORY: CABG, cardiac catheterization with stent placement, right hip arthroplasty 6 months ago. SOCIAL HISTORY: No smoking. No alcohol use. FAMILY HISTORY: Father has hypertension. REVIEW OF SYSTEMS: Cardiopulmonary: No chest pain, shortness of breath. Genitourinary: No dysuria or hematuria. Musculoskeletal unremarkable. Skin unremarkable. Endocrine unremarkable. Psychiatric unremarkable. Neurology unremarkable. ENT vision unremarkable. Constitutional: No recent weight loss. No fever, chills, night sweats. PHYSICAL EXAMINATION: He appears comfortable. No apparent distress. Vital signs stable. Blood pressure 116/68, pulse rate 83, temperature 97. HEENT examination unremarkable. Conjunctivae pink. Sclerae anicteric. Oral cavity no lesions. Neck no jugular venous distention or lymph node enlargement. The chest was clear to auscultation. HEART: Regular rate and rhythm. ABDOMEN: Soft. Bowel sounds are positive. No organomegaly. Extremities: No pedal edema. Skin no rashes. NEUROLOGIC: Alert and oriented x3. No focal deficits. LAB DATA: Done at the time of admission to the hospital revealed: WBC 11.6, hemoglobin 15.1, platelets are within normal limits. PT 12.2, INR 1.3, T bilirubin is 2.2. AST 142, ALT 65, alkaline phosphatase 186, lipase is 528. Ultrasound of the abdomen showed evidence of dilated gallbladder with possible sludge, cannot rule out stone. No biliary ductal dilation. IMPRESSION: 1. The patient presents to hospital with acute onset of severe epigastric pain that lasts for a hours and that started around 9 p.m. yesterday and lasted for several hours. Came to the emergency room and was not to have elevated bilirubin at 2.2 and mild elevation of serum transaminases. The ultrasound of the abdomen did show evidence of dilated gallbladder with possible sludge. No obvious stones. At this time, possibility of a common bile duct stone cannot be entirely excluded given the biochemical parameters. Patient however remains asymptomatic and abdominal pain has completely resolved. He had a similar episode a week ago that lasted for 3 hours and subsided. 2. History of atrial fibrillation on Eliquis, currently on hold. RECOMMENDATIONS: 1. Continue with broad-spectrum antibiotics. 2. Clear liquid diet. 3. We will obtain MRCP to evaluate for CBD stone and based on the findings, we will consider further endoscopy intervention if needed. 4. Repeat labs in the morning. 5. We will follow the patient closely during his hospital stay. Thank you for this consultation. MMODL / IJN: [id number] /
--- NOTE | 2018-02-06 11:41 | P.GSCN ---
History of Present Illness Consult date: 02/06/18 History of present illness: 78-year-old male presents to the emergency department with complaints of abdominal pain. He states the pain began after eating a hot dog for dinner. His pain was in the epigastrium. On workup, the patient was found to have a hydropic gallbladder with evidence of cholecystitis on ultrasound. Laboratory values also revealed a hyperbilirubinemia of 2.2 with some elevated liver enzymes. He also complained of nausea and dry heaves. Currently, the patient states his abdominal pain is improving and he no longer feels nauseous. He is complaining of feeling thirsty. He does have a significant previous medical history including atrial fibrillation and previous aortic aneurysm repair. He is taking anticoagulation with a Eliquis. He states his last dose was yesterday at 6:30 PM. He currently has no additional complaints. Review of Systems All systems: negative Past Medical History Past Medical History: Atrial Fibrillation, Coronary Artery Disease (CAD), Hyperlipidemia, Hypertension, Myocardial Infarction (HI), Osteoarthritis (OA) Last Myocardial Infarction Date:: unknown History of Any Multi-Drug Resistant Organisms: None Reported Past Surgical History: Coronary Bypass/CABG, Heart Catheterization With Stent Additional Past Surgical History / Comment(s): triple bypass 14 years ago, aortic aneurysm repair, TRHA Past Anesthesia/Blood Transfusion Reactions: No Reported Reaction Date of Last Stent Placement:: unknown Past Psychological History: No Psychological Hx Reported Smoking Status: Former smoker Past Alcohol Use History: None Reported Additional Past Alcohol Use History / Comment(s): quit smoking 14 yrs. ago, 1ppd for 40 yrs. Past Drug Use History: None Reported - Past Family History Mother Family Medical History: No Reported History Father Family Medical History: Hypertension Additional Family Medical History / Comment(s): Patient states that his parents never went to the doctor. He thinks his father of hypertensive disease. He does not know much about his mother. Denies any significant medical history in siblings, is and has kids with no significant medical Medications and Allergies Home Medications Medication Instructions Recorded Confirmed Type Apixaban [Eliquis] 5 mg PO BID 07/21/17 07/26/17 History Glucosamine Sulfate 500 mg PO DAILY 07/21/17 07/26/17 History Losartan [Cozaar] 12.5 mg PO DAILY 07/21/17 07/26/17 History Pravastatin Sodium [Pravachol] 40 mg PO HS 07/21/17 07/26/17 History Terazosin [Hytrin] 5 mg PO DAILY 07/21/17 07/26/17 History amLODIPine [Norvasc] 10 mg PO DAILY 07/21/17 07/26/17 History Apixaban [Eliquis] 5 mg PO BID #60 tab 07/27/17 Rx HYDROcodone/APAP 5-325MG [[place] 1 - 2 tab PO Q4-6H PRN #90 tab 07/27/17 Rx 5-325] Metoprolol Tartrate [Lopressor] 12.5 mg PO BID #60 dose 07/27/17 Rx Sennosides [Senokot] 1 tab PO BID #60 tablet 07/27/17 Rx Allergies Allergy/AdvReac Type Severity Reaction Status Date / Time No Known Allergies Allergy Verified 07/26/17 10:19 Surgical - Exam Osteopathic Statement: *. No significant issues noted on an osteopathic structural exam other than those noted in the History and Physical/Consult. Vital Signs Pulse Resp BP Pulse Ox 79 18 147/89 97 02/05/18 23:37 02/05/18 23:37 02/05/18 23:37 02/05/18 23:37 - General well nourished, no distress - Eyes normal ocular movement - ENT decreased hearing - Neck trachea midline - Respiratory No difficulty with respiration - Abdomen Soft, mildly distended, nontender, no rebound, no guarding, midline surgical scar from previous AAA surgery - Psychiatric oriented to time, oriented to person, oriented to place, speech is normal Results - Labs 02/06/18 00:05 02/06/18 00:05 Abnormal Lab Results - Last 24 Hours (Table) 02/06/18 02/06/18 02/06/18 Range/Units 00:05 00:05 00:05 WBC 11.6 H (3.8-10.6) k/uL Neutrophils # 10.3 H (1.3-7.7) k/uL Lymphocytes # 0.7 L (1.0-4.8) k/uL PT (9.0-12.0) sec INR (<1.2) BUN 27 H (9-20) mg/dL Glucose 156 H (74-99) mg/dL Total Bilirubin 2.2 H (0.2-1.3) mg/dL AST 142 H (17-59) U/L Alkaline Phosphatase 186 H (38-126) U/L CK-MB (CK-2) 3.5 H (0.0-2.4) ng/mL Total Protein 5.8 L (6.3-8.2) g/dL Albumin 3.3 L (3.5-5.0) g/dL Lipase 528 H (23-300) U/L 02/06/18 Range/Units 00:05 WBC (3.8-10.6) k/uL Neutrophils # (1.3-7.7) k/uL Lymphocytes # (1.0-4.8) k/uL PT 12.2 H (9.0-12.0) sec INR 1.3 H (<1.2) BUN (9-20) mg/dL Glucose (74-99) mg/dL Total Bilirubin (0.2-1.3) mg/dL AST (17-59) U/L Alkaline Phosphatase (38-126) U/L CK-MB (CK-2) (0.0-2.4) ng/mL Total Protein (6.3-8.2) g/dL Albumin (3.5-5.0) g/dL Lipase (23-300) U/L Diabetes panel 02/06/18 Range/Units 00:05 Sodium 138 (137-145) mmol/L Potassium 3.8 (3.5-5.1) mmol/L Chloride 103 (98-107) mmol/L Carbon Dioxide 26 (22-30) mmol/L BUN 27 H (9-20) mg/dL Creatinine 0.95 (0.66-1.25) mg/dL Glucose 156 H (74-99) mg/dL Calcium 8.5 (8.4-10.2) mg/dL AST 142 H (17-59) U/L ALT 65 (21-72) U/L Alkaline Phosphatase 186 H (38-126) U/L Total Protein 5.8 L (6.3-8.2) g/dL Albumin 3.3 L (3.5-5.0) g/dL Calcium panel 02/06/18 Range/Units 00:05 Calcium 8.5 (8.4-10.2) mg/dL Albumin 3.3 L (3.5-5.0) g/dL Pituitary panel 02/06/18 Range/Units 00:05 Sodium 138 (137-145) mmol/L Potassium 3.8 (3.5-5.1) mmol/L Chloride 103 (98-107) mmol/L Carbon Dioxide 26 (22-30) mmol/L BUN 27 H (9-20) mg/dL Creatinine 0.95 (0.66-1.25) mg/dL Glucose 156 H (74-99) mg/dL Calcium 8.5 (8.4-10.2) mg/dL Adrenal panel 02/06/18 Range/Units 00:05 Sodium 138 (137-145) mmol/L Potassium 3.8 (3.5-5.1) mmol/L Chloride 103 (98-107) mmol/L Carbon Dioxide 26 (22-30) mmol/L BUN 27 H (9-20) mg/dL Creatinine 0.95 (0.66-1.25) mg/dL Glucose 156 H (74-99) mg/dL Calcium 8.5 (8.4-10.2) mg/dL Total Bilirubin 2.2 H (0.2-1.3) mg/dL AST 142 H (17-59) U/L ALT 65 (21-72) U/L Alkaline Phosphatase 186 H (38-126) U/L Total Protein 5.8 L (6.3-8.2) g/dL Albumin 3.3 L (3.5-5.0) g/dL - Imaging US - abdomen: report reviewed, image reviewed Assessment and Plan (1) Cholecystitis Narrative/Plan: 78-year-old male with cholecystitis - Cardiology consultation appreciated. The patient is noted to be appropriate cardiac risk for surgery with anesthesia. Eliquis is held at this time. We will need 48 hours without Eliquis prior to surgery. - Gastroenterology consult has been placed due to elevated bilirubin levels. We will continue to follow bilirubin levels and decide between ERCP or cholecystectomy in the next few days - Okay to begin clear liquid diet - Continue medical management - Plan is for eventual cholecystectomy after anticoagulation is held and bilirubin levels are followed with gastroenterology input Thank you for this consultation, I look forward in providing in this patient's care Current Visit: Yes Status: Acute Code(s): K81.9 - CHOLECYSTITIS, UNSPECIFIED SNOMED Code(s): 66065556
[2018-02-06] MEDS: LEVOFLOXACIN 500MG-D5W PMX 500 MG in DEXTROSE/WATER 1 100ML.BAG IVPB SCH (12:36)
--- NOTE | 2018-02-06 14:10 | P.HPIM ---
History of Present Illness H&P Date: 02/06/18 This is a 78-year-old male patient of Dr. Sudha villa with a past medical history of persistent atrial fibrillation, coronary artery disease, status post CABG, hyperlipidemia, hypertension he is admitted with cholecystitis. Patient had a ultrasound outpatient that showed gallstones. Patient presented to the ER yesterday with complaints of severe epigastric abdominal pain radiating to the right shoulder and right clavicle. He was feeling nauseous at that time without any emesis. Patient was having normal bowel movements per self. Patient is resting at this time without any complaint of abdominal pain. Patient has been seen by surgery and cardiology. Will hold eliquis at this time to proceed with surgery possibly on Wednesday. Due to elevated bilirubin, continue to monitor bilirubin level and consult GI for possible ERCP on Wednesday. Patient denies any nausea or vomiting at this time he denies any constipation or diarrhea. WBC 11.6, total bilirubin 2.2, AST 142, alkaline phosphatase 186 lipase 528. Review of Systems Constitutional: Denies anorexia, Denies chills, Denies fatigue, Denies malaise, Denies poor appetite Ears, nose, mouth and throat: Denies epistaxis, Denies headache, Denies nasal discharge, Denies sinus pain Cardiovascular: Denies chest pain, Denies dyspnea on exertion, Denies irregular heart beat, Denies orthopnea, Denies palpitations, Denies rapid heart beat Respiratory: Denies cough, Denies cough with sputum, Denies dyspnea, Denies sleep apnea, Denies snoring Gastrointestinal: Reports abdominal pain, Reports heartburn, Denies excessive gas, Denies hematemesis, Denies melena, Denies nausea, Denies vomiting Genitourinary: Denies incontinence, Denies urinary frequency, Denies urinary retention Musculoskeletal: Denies frequent falls, Denies gait dysfunction Integumentary: Denies pruritus, Denies rash Neurological: Denies ataxia, Denies change in mentation, Denies numbness, Denies syncope, Denies vertigo Psychiatric: Denies anxiety, Denies depression, Denies hallucinations Endocrine: Denies excessive sweating, Denies excessive thirst Hematologic/Lymphatic: Denies easy bleeding, Denies lymphadenopathy Past Medical History Past Medical History: Atrial Fibrillation, Coronary Artery Disease (CAD), Hyperlipidemia, Hypertension, Myocardial Infarction ([place]), Osteoarthritis (OA) Last Myocardial Infarction Date:: unknown History of Any Multi-Drug Resistant Organisms: None Reported Past Surgical History: Coronary Bypass/CABG, Heart Catheterization With Stent Additional Past Surgical History / Comment(s): triple bypass 14 years ago, aortic aneurysm repair, TRHA Past Anesthesia/Blood Transfusion Reactions: No Reported Reaction Date of Last Stent Placement:: unknown Past Psychological History: No Psychological Hx Reported Smoking Status: Former smoker Past Alcohol Use History: None Reported Additional Past Alcohol Use History / Comment(s): quit smoking 14 yrs. ago, 1ppd for 40 yrs. Past Drug Use History: None Reported - Past Family History Mother Family Medical History: No Reported History Father Family Medical History: Hypertension Additional Family Medical History / Comment(s): Patient states that his parents never went to the doctor. He thinks his father of hypertensive disease. He does not know much about his mother. Denies any significant medical history in siblings, is and has kids with no significant medical. lives of at home. Medications and Allergies Home Medications Medication Instructions Recorded Confirmed Type Apixaban [Eliquis] 5 mg PO BID 07/21/17 07/26/17 History Glucosamine Sulfate 500 mg PO DAILY 07/21/17 07/26/17 History Losartan [Cozaar] 12.5 mg PO DAILY 07/21/17 07/26/17 History Pravastatin Sodium [Pravachol] 40 mg PO HS 07/21/17 07/26/17 History Terazosin [Hytrin] 5 mg PO DAILY 07/21/17 07/26/17 History amLODIPine [Norvasc] 10 mg PO DAILY 07/21/17 07/26/17 History Apixaban [Eliquis] 5 mg PO BID #60 tab 07/27/17 Rx HYDROcodone/APAP 5-325MG [[place] 1 - 2 tab PO Q4-6H PRN #90 tab 07/27/17 Rx 5-325] Metoprolol Tartrate [Lopressor] 12.5 mg PO BID #60 dose 07/27/17 Rx Sennosides [Senokot] 1 tab PO BID #60 tablet 07/27/17 Rx Allergies Allergy/AdvReac Type Severity Reaction Status Date / Time No Known Allergies Allergy Verified 07/26/17 10:19 Physical Exam Vitals: Vital Signs Temp Pulse Pulse Resp BP BP BP 02/06/18 12:35 92 120/72 02/06/18 08:05 98.2 F 98 16 109/54 02/06/18 04:34 83 18 119/67 02/06/18 04:31 98.0 F 85 18 121/67 02/06/18 03:54 83 18 116/68 02/05/18 23:37 79 18 147/89 Pulse Ox 02/06/18 12:35 02/06/18 08:05 95 02/06/18 04:34 96 02/06/18 04:31 97 02/06/18 03:54 97 02/05/18 23:37 97 Intake and Output 02/05/18 02/06/18 02/06/18 22:59 06:59 14:59 Output Total 1000 Balance -1000 Output: Urine 1000 Other: Weight 72.575 kg Gen: This 78-year-old male, no acute distress, well-nourished HEENT: Head is atraumatic, normocephalic. Pupils equal, round. Sclerae is anicteric. NECK: Supple. No JVD. No lymphadenopathy. No thyromegaly. LUNGS: Clear to auscultation. No wheezes or rhonchi. No intercostal retractions. HEART: Regular rate and rhythm. No murmur. ABDOMEN: Soft. Bowel sounds are present. No rebound, no guarding, midline surgical scar from previous AAA, tenderness to epigastric area EXTREMITIES: No pedal edema. No calf tenderness. NEUROLOGICAL: Patient is awake, alert and oriented x3. Cranial nerves 2 through 12 are grossly intact. Results CBC & Chem 7: 02/06/18 00:05 02/06/18 00:05 Labs: Abnormal Lab Results - Last 24 Hours (Table) 02/06/18 02/06/18 02/06/18 Range/Units 00:05 00:05 00:05 WBC 11.6 H (3.8-10.6) k/uL Neutrophils # 10.3 H (1.3-7.7) k/uL Lymphocytes # 0.7 L (1.0-4.8) k/uL PT (9.0-12.0) sec INR (<1.2) BUN 27 H (9-20) mg/dL Glucose 156 H (74-99) mg/dL Total Bilirubin 2.2 H (0.2-1.3) mg/dL AST 142 H (17-59) U/L Alkaline Phosphatase 186 H (38-126) U/L CK-MB (CK-2) 3.5 H (0.0-2.4) ng/mL Total Protein 5.8 L (6.3-8.2) g/dL Albumin 3.3 L (3.5-5.0) g/dL Lipase 528 H (23-300) U/L 02/06/18 Range/Units 00:05 WBC (3.8-10.6) k/uL Neutrophils # (1.3-7.7) k/uL Lymphocytes # (1.0-4.8) k/uL PT 12.2 H (9.0-12.0) sec INR 1.3 H (<1.2) BUN (9-20) mg/dL Glucose (74-99) mg/dL Total Bilirubin (0.2-1.3) mg/dL AST (17-59) U/L Alkaline Phosphatase (38-126) U/L CK-MB (CK-2) (0.0-2.4) ng/mL Total Protein (6.3-8.2) g/dL Albumin (3.5-5.0) g/dL Lipase (23-300) U/L Thrombosis Risk Factor Assmnt - Choose All That Apply Each Risk Factor Represents 3 Points: Age 75 years or older Thrombosis Risk Factor Assessment Total Risk Factor Score: 3 Thrombosis Risk Factor Assessment Level: Moderate Risk Assessment and Plan Plan: 1. Severe epigastric pain secondary to cholecystitis, continue Flagyl, continue levofloxacin, surgical consult appreciated, possible surgical intervention Wednesday for cholecystectomy. Patient may be on a clear liquid diet as tolerated. 2. Cholecystitis, continue Flagyl, continue levofloxacin, possible surgical intervention Wednesday 3. Pancreatitis continue IV antibiotics, consult GI, for possible ERCP, continue to monitor bilirubin, amylase and lipase, continue to monitor CMP 4. Possible Ascending cholangitis, continue Flagyl, GI consult 5. Atrial fibrillation, hold eliquis at this time, start subcu heparin 5000 units twice a day 5. Hypertension continue Cozaar 12.5 mg daily, continue metoprolol 12.5 mg twice a day, continue amlodipine 10 mg by mouth 7. Hyperlipidemia continue pravastatin 40 mg 8. Coronary artery disease, stable, continue Cozaar, metoprolol, amlodipine, pravastatin 9. GI prophylaxis, continue Zofran 10. DVT prophylaxis, subcu heparin 5000 units twice a day
[2018-02-06] MEDS: metroNIDAZOLE-NS PMX 500 MG in SALINE 1 100ML.BAG IVPB SCH ×2 (14:35→22:27)
[2018-02-06] MEDS: HEPARIN SODIUM,PORCINE 5,000 UNIT/ML 1 ML VIAL SQ SCH (22:27)
[2018-02-06] MEDS: PRAVASTATIN SODIUM 40 MG TAB PO SCH (22:27)
[2018-02-06] MEDS: SENNOSIDES 8.6 MG TAB PO SCH (22:27)
[2018-02-06] MEDS: METOPROLOL TARTRATE 12.5 MG TAB PO SCH (22:27)
[2018-02-07] MEDS: metroNIDAZOLE-NS PMX 500 MG in SALINE 1 100ML.BAG IVPB SCH ×3 (06:05→21:44)
[2018-02-07] MEDS: HEPARIN SODIUM,PORCINE 5,000 UNIT/ML 1 ML VIAL SQ SCH ×2 (07:56→21:44)
[2018-02-07] MEDS: METOPROLOL TARTRATE 12.5 MG TAB PO SCH ×2 (07:56→21:44)
[2018-02-07] MEDS: LOSARTAN 25 MG TAB PO SCH (07:56)
[2018-02-07] MEDS: amLODIPine 10 MG TAB PO SCH (07:56)
[2018-02-07] MEDS: DOXAZOSIN 4 MG TAB PO SCH (07:56)
[2018-02-07] MEDS: SENNOSIDES 8.6 MG TAB PO SCH ×2 (07:57→21:44)
[2018-02-07 08:58] LABS: Basophils % (A) 0 %; Eosinophils # (A) 0.1 k/uL (0-0.7); Eosinophils % (A) 1 %; HGB 13.7 gm/dL (13.0-17.5); Lymphocytes # (A) 0.4 k/uL (1.0-4.8); Lymphocytes % (A) 3 %; MCH 28.2 pg (25.0-35.0); MCHC 33.5 g/dL (31.0-37.0); Monocytes # (A) 0.5 k/uL (0-1.0); Monocytes % (A) 4 %; Neutrophils # (A) 12.5 k/uL (1.3-7.7); Neutrophils % (A) 92 %; Platelet Count 160 k/uL (150-450); RBC 4.88 m/uL (4.30-5.90); WBC 13.7 k/uL (3.8-10.6)
[2018-02-07 09:15] LABS: Albumin 2.6 g/dL (3.5-5.0); Calcium 7.8 mg/dL (8.4-10.2); Potassium 3.2 mmol/L (3.5-5.1); Total Bilirubin 3.6 mg/dL (0.2-1.3); Total Protein 4.7 g/dL (6.3-8.2)
[2018-02-07] MEDS ORDERED: Potassium Replacement Protocol 1 EACH MISC MISCELLANE PRN (09:53)
[2018-02-07] MEDS: POTASSIUM CHLORIDE ER 20 MEQ TAB.ER PO SCH ×2 (10:20→11:06)
[2018-02-07] MEDS: LEVOFLOXACIN 500MG-D5W PMX 500 MG in DEXTROSE/WATER 1 100ML.BAG IVPB SCH (10:21)
[2018-02-07] MEDS: CALCIUM CARBONATE 500 MG CHEWABLE PO PRN (10:21)
--- NOTE | 2018-02-07 11:32 | P.PN ---
Subjective Progress Note Date: 02/07/18 Patient seen and examined at bedside. States abdominal pain is much improved. Denies any nausea or vomiting. Tolerating clear liquid diet. Objective - Vital Signs Vital signs: Vital Signs Temp 98 F 02/07/18 07:11 Pulse 63 02/07/18 07:11 Resp 16 02/07/18 07:11 BP 115/69 02/07/18 07:11 Pulse Ox 97 02/07/18 07:11 Intake & Output 02/06/18 02/07/18 02/07/18 18:59 06:59 18:59 Intake Total 1400 990 Output Total 1000 Balance 400 990 Intake: IV 200 Levofloxacin 500Mg-D5w 100 Pmx 500 mg In Dextrose/ Water 1 100ml.bag @ 100 mls/hr IVPB Q24H [facility] Rx#: [id number] metroNIDAZOLE-NS PMX 500 100 mg In Saline 1 100ml.bag @ 100 mls/hr IVPB ONCE [facility] Rx#:[id number] Intake, IV Titration 200 Amount metroNIDAZOLE-NS PMX 500 200 mg In Saline 1 100ml.bag @ 100 mls/hr IVPB Q8H [facility] Rx#:[id number] Oral 1200 790 Output: Urine 1000 Other: Voiding Method Toilet # Voids 2 2 # Bowel Movements 0 - Constitutional General appearance: Present: cooperative - Respiratory Details: No difficulty with respiration - Gastrointestinal Gastrointestinal Comment(s): Soft, nontender, nondistended, no rebound, no guarding - Psychiatric Psychiatric: Present: A&O x's 3 - Labs CBC & Chem 7: 02/07/18 08:09 02/07/18 08:09 Labs: Abnormal Lab Results - Last 24 Hours (Table) 02/07/18 02/07/18 Range/Units 08:09 08:09 WBC 13.7 H (3.8-10.6) k/uL Neutrophils # 12.5 H (1.3-7.7) k/uL Lymphocytes # 0.4 L (1.0-4.8) k/uL Potassium 3.2 L (3.5-5.1) mmol/L BUN 24 H (9-20) mg/dL Calcium 7.8 L (8.4-10.2) mg/dL Total Bilirubin 3.6 H (0.2-1.3) mg/dL AST 226 H (17-59) U/L ALT 282 H (21-72) U/L Alkaline Phosphatase 217 H (38-126) U/L Total Protein 4.7 L (6.3-8.2) g/dL Albumin 2.6 L (3.5-5.0) g/dL Lipase 620 H (23-300) U/L Microbiology - Last 24 Hours (Table) 02/06/18 04:10 Blood Culture Gram Stain - Preliminary Blood Blood Culture - Preliminary Gram Neg Bacilli 02/06/18 04:10 Blood Culture - Final Blood Assessment and Plan (1) Cholecystitis Narrative/Plan: 78-year-old male with cholecystitis, questionable choledocholithiasis - Cardiology consultation appreciated. The patient is noted to be appropriate cardiac risk for surgery with anesthesia. Eliquis is held at this time. We will need 48 hours without Eliquis prior to surgery. - Gastroenterology consult has been placed due to elevated bilirubin levels. Total bilirubin has increased today to a level above 3. Discussed case with Dr. Leggett and there is plan for ERCP today. - Okay to begin clear liquid diet after ERCP - Continue medical management - Plan is for eventual cholecystectomy after anticoagulation is held and bilirubin levels are followed with gastroenterology input Current Visit: Yes Status: Acute Code(s): K81.9 - CHOLECYSTITIS, UNSPECIFIED SNOMED Code(s): 06470228
[2018-02-07] MEDS ORDERED: INDOMETHACIN 50MG SUPPOSITORY RECTAL ONE (11:40)
--- NOTE | 2018-02-07 12:07 | ECHOF ---
Referral Reason:pre op MEASUREMENTS -------- HEIGHT: 182.9 cm WEIGHT: 72.6 kg BP: RVIDd: 2.8 cm (< 3.3) IVSd: 1.2 cm (0.6 - 1.1) LVIDd: 5.3 cm (3.9 - 5.3) LVPWd: 1.3 cm (0.6 - 1.1) IVSs: 1.5 cm LVIDs: 5.2 cm LVPWs: 1.2 cm LAESV Index (A-L): 49.78 ml/m IVSd: 1.1 cm (0.6 - 1.1) LVIDd: 5.7 cm (3.9 - 5.3) LVPWd: 1.4 cm (0.6 - 1.1) IVSs: 1.3 cm LVIDs: 5.0 cm LVPWs: 1.3 cm EDV(Teich): 162 ml ESV(Teich): 116 ml EF(Teich): 28 % %FS: 13 % SV(Teich): 46 ml Ao Diam: 3.6 cm (2.0 - 3.7) AV Cusp: 2.2 cm (1.5 - 2.6) LA Diam: 4.4 cm (2.7 - 3.8) MV EXCURSION: 20.824 mm (> 18.000) MV EF SLOPE: 96 mm/s (70 - 150) EPSS: 1.6 cm MV E Joel: 0.93 m/s MV DecT: 163 ms MV A Joel: 0.42 m/s MV E/A Ratio: 2.24 AR PHT: 302 ms RAP: 5.00 mmHg RVSP: 30.39 mmHg FINDINGS -------- Sinus rhythm. This was a technically good study. The left ventricular size is normal. There is borderline concentric left ventricular hypertrophy. Overall left ventricular systolic function is moderate-severely impaired with, an EF between 30 - 35 %. The right ventricle is normal in size and function. There is mild aortic regurgitation. Mild mitral regurgitation is present. Mild tricuspid regurgitation present. The right ventricular systolic pressure, as measured by Doppl er, is 30.39mmHg. Pulmonic valve appears structurally normal. The aortic root size is normal. The pericardium is normal. CONCLUSIONS -------- 1. Sinus rhythm. 2. This was a technically good study. 3. The left ventricular size is normal. 4. There is borderline concentric left ventricular hypertrophy. 5. Overall left ventricular systolic function is moderate-severely impaired with, an EF between 30 - 35 %. 6. The right ventricle is normal in size and function. 7. There is mild aortic regurgitation. 8. Mild mitral regurgitation is present. 9. Mild tricuspid regurgitation present. 10. The right ventricular systolic pressure, as measured by Doppler, is 30.39mmHg. 11. Pulmonic valve appears structurally normal. 12. The aortic root size is normal. 13. The pericardium is normal. [employer] FOLDING MACHINE OPERATOR: Maddie Velazquez RDCS
[2018-02-07] MEDS ORDERED: PROPOFOL 10 MG/ML 20 ML VIAL IV ONE (12:48)
[2018-02-07] MEDS ORDERED: GLUCAGON 1 MG/ML VIAL ONE (12:48)
[2018-02-07] MEDS ORDERED: LIDOCAINE 1% INJ 10MG/ML (20 ML MDV) ONE (12:48)
[2018-02-07] MEDS ORDERED: SODIUM CHLORIDE 0.9% 500 ML 350 ML IV ONE (12:55)
[2018-02-07] MEDS ORDERED: IOPAMIDOL-300 50ML BTL MISCELLANE ONE (12:56)
--- NOTE | 2018-02-07 13:19 | P.PCN ---
Date of Procedure: 02/07/18 Procedure(s) Performed: Brief history: Patient is a 78 year-old pleasant white male scheduled for an ERCP as part of evaluation of abdominal pain and elevated serum transaminases for the last 2 days' duration. His serum transaminases gradually getting worse and bilirubin is up to 3.9 g/dL. Ultrasound of abdomen showed evidence of possible sludge/stone in the gallbladder. Because of clinical suspicion for CBD stones he scheduled for an ERCP today Procedure performed: ERCP with biliary sphincterotomy and balloon extraction Preoperative diagnoses: Epigastric pain/elevated LFTs and jaundice IV sedation per anesthesia: Procedure: After informed consent was obtained from the patient and after the risks benefits and complications including bleeding perforation and pancreatitis explained in detail the patient was brought into the endoscopy unit. The patient was placed in prone position and IV conscious sedation was administered by anesthesia under continuous monitoring. The Olympus side-viewing duodenoscope was then inserted into the mouth and esophagus intubated without any difficulty. The scope was gradually advanced into the stomach and duodenum. The major papilla was identified without any difficulty. Initial cannulation resulted in opacification of the common bile duct which appeared slightly dilated measuring at least 7-8 mm in diameter. There was a small faint filling defect noted in the distal common bile duct. At this time I proceeded with biliary sphincterotomy after the catheter was exchanged over a guidewire. The enterotomy was performed at 11 o'clock position and was extended to 1 mm. Following this a 8 millimeter balloon was passed into the proximal CBD over the guidewire and was gently withdrawn and he did not see any stones exiting the ampulla. I repeated this maneuver 2 or 3 times and performed an occlusion cholangiogram and no other filling defects were identified and at this time the procedure was terminated and the patient tolerated the procedure well. Pancreatic duct was intentionally not cannulated during the entire procedure Impression: 1. Dilated common bile duct measuring 8 mm in diameter with a faint filling defect status post biliary sphincterotomy and balloon extraction as described above. No stone seen exiting the ampulla. 2. Pancreatic duct intentionally not cannulated. Recommendations: The findings of this examination were discussed with the patient as well as a family. He will be on a clear liquid diet. Repeat labs in the morning. Continue on antibiotics.
--- NOTE | 2018-02-07 13:48 | FL ---
Fluoroscopy INDICATION: Pain FINDINGS: Fluoroscopy time: 1 minute 46 seconds seconds. Images obtained: 2. No obvious filling defects are evident. IMPRESSIONS: 1. Documentation of fluoroscopy.
[2018-02-07] MEDS ORDERED: FUROSEMIDE 10 MG/ML 4 ML VIAL IV STA (14:32)
--- NOTE | 2018-02-07 14:38 | P.PN ---
Subjective This is a pleasant 78-year-old male past medical history significant for chronic persistent atrial fibrillation on long-term anticoagulation, coronary artery disease status post bypass grafting, hypertension and dyslipidemia. He follows with Dr. Faye in the office. He presented to the hospital with symptoms of abdominal pain and has been diagnosed with acute cholecystitis. He was seen in the office in July and underwent full cardiac workup prior to hip surgery. Stress test and echocardiogram performed. Echocardiogram at that time revealed mildly decreased LV systolic function with ejection fraction 40-45%. Repeat echocardiogram obtained today shows decrease in LV systolic function with ejection fraction 30-35%. Currently maintained on amlodipine 10 mg daily, pravastatin 40 mg daily, terazosin 5 mg daily, lopressor 12.5 mg daily and losartane 12.5 mg daily. Eliquis has been held, last dose 02/05 in the PM. Objective - Vital Signs Vital signs: Vital Signs Temp 98 F 02/07/18 07:11 Pulse 63 02/07/18 07:11 Resp 16 02/07/18 07:11 BP 115/69 02/07/18 07:11 Pulse Ox 97 02/07/18 07:11 Intake & Output 02/06/18 02/07/18 02/07/18 18:59 06:59 18:59 Intake Total 1400 990 790 Output Total 1000 Balance 400 990 790 Intake: IV 200 250 Levofloxacin 500Mg-D5w 100 Pmx 500 mg In Dextrose/ Water 1 100ml.bag @ 100 mls/hr IVPB Q24H [facility] Rx#: [id number] metroNIDAZOLE-NS PMX 500 100 mg In Saline 1 100ml.bag @ 100 mls/hr IVPB ONCE [facility] Rx#:[id number] Intake, IV Titration 200 Amount metroNIDAZOLE-NS PMX 500 200 mg In Saline 1 100ml.bag @ 100 mls/hr IVPB Q8H [facility] Rx#:[id number] Oral 1200 790 540 Output: Urine 1000 Other: Voiding Method Toilet # Voids 2 2 2 # Bowel Movements 0 1 - Exam GENERAL: Well-appearing, well-nourished and in no acute distress. Hard of hearing. NECK: Supple without JVD or thyromegaly. LUNGS: Breath sounds clear to auscultation bilaterally. Respiration equal and unlabored. No wheezes, rales or rhonchi. HEART: Irregular rate and rhythm with systolic ejection murmur at the left sternal border, no rubs or gallops. S1 and S2 heard. EXTREMITIES: Normal range of motion, no edema. No clubbing or cyanosis. Peripheral pulses intact. - Labs CBC & Chem 7: 02/07/18 08:09 02/07/18 08:09 Labs: Abnormal Lab Results - Last 24 Hours (Table) 02/07/18 02/07/18 Range/Units 08:09 08:09 WBC 13.7 H (3.8-10.6) k/uL Neutrophils # 12.5 H (1.3-7.7) k/uL Lymphocytes # 0.4 L (1.0-4.8) k/uL Potassium 3.2 L (3.5-5.1) mmol/L BUN 24 H (9-20) mg/dL Calcium 7.8 L (8.4-10.2) mg/dL Total Bilirubin 3.6 H (0.2-1.3) mg/dL AST 226 H (17-59) U/L ALT 282 H (21-72) U/L Alkaline Phosphatase 217 H (38-126) U/L Total Protein 4.7 L (6.3-8.2) g/dL Albumin 2.6 L (3.5-5.0) g/dL Lipase 620 H (23-300) U/L Microbiology - Last 24 Hours (Table) 02/06/18 04:10 Blood Culture Gram Stain - Preliminary Blood Blood Culture - Preliminary Gram Neg Bacilli 02/06/18 04:10 Blood Culture - Final Blood Assessment and Plan Assessment: ASSESSMENT Acute cholecystitis Chronic systolic heart failure with worsening EF on most recent echo, with elevated NTproBNP 8800. Mild exacerbation not excluded. Will given one dose of IV lasix and repeat chest xray in the morning. Leukocytosis Hypokalemia Hypokalemia, replaced. 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 TY to LAD, SVG to PDA and SVG to OM. Hypertension Dyslipidemia PLAN He has chronic systolic heart failure with worsening EF on most recent echo, with elevated NTproBNP 8800. Mild exacerbation not excluded. Will given one dose of IV lasix and repeat chest xray in the morning. Check NTproBNP, level 8800. Patient appears euvolemic clinically with no complaints of shortness of breath, lower extremity edema or orthopnea. We will continue to follow closely. Nurse Practitioner note has been reviewed, I agree with a documented findings and plan of care. Patient was seen and examined.
--- NOTE | 2018-02-07 15:52 | P.PN ---
<MateoYelitzay A - Last Filed: 02/07/18 15:48> Subjective Progress Note Date: 02/07/18 This is a 78-year-old male patient of Dr. Haley with a past medical history of persistent atrial fibrillation, coronary artery disease, status post CABG, hyperlipidemia, hypertension he is admitted with cholecystitis. Patient had a ultrasound outpatient that showed gallstones. Patient presented to the ER yesterday with complaints of severe epigastric abdominal pain radiating to the right shoulder and right clavicle. He was feeling nauseous at that time without any emesis. Patient was having normal bowel movements per self. Patient is resting at this time without any complaint of abdominal pain. Patient has been seen by surgery and cardiology. Will hold eliquis at this time to proceed with surgery possibly on Wednesday. Due to elevated bilirubin, continue to monitor bilirubin level and consult GI for possible ERCP on Wednesday. Patient denies any nausea or vomiting at this time he denies any constipation or diarrhea. WBC 11.6, total bilirubin 2.2, AST 142, alkaline phosphatase 186 lipase 528. 02/07: Today, total bilirubin and liver enzymes are higher. ProBNP was 8800, lipase 620. Patient underwent ERCP with biliary sphincterotomy and balloon extraction with Dr. Cabrrea today. No stone was seen exiting the ampulla. Pancreatic duct intentionally not cannulated. Patient was started on a clear liquid diet following. Objective - Vital Signs Vital signs: Vital Signs Temp 98 F 02/07/18 07:11 Pulse 63 02/07/18 07:11 Resp 16 02/07/18 07:11 BP 115/69 02/07/18 07:11 Pulse Ox 97 02/07/18 07:11 Intake & Output 02/06/18 02/07/18 02/07/18 18:59 06:59 18:59 Intake Total 1400 990 Output Total 1000 Balance 400 990 Intake: IV 200 Levofloxacin 500Mg-D5w 100 Pmx 500 mg In Dextrose/ Water 1 100ml.bag @ 100 mls/hr IVPB Q24H [facility] Rx#: [id number] metroNIDAZOLE-NS PMX 500 100 mg In Saline 1 100ml.bag @ 100 mls/hr IVPB ONCE [facility] Rx#:[id number] Intake, IV Titration 200 Amount metroNIDAZOLE-NS PMX 500 200 mg In Saline 1 100ml.bag @ 100 mls/hr IVPB Q8H [facility] Rx#:[id number] Oral 1200 790 Output: Urine 1000 Other: Voiding Method Toilet # Voids 2 2 # Bowel Movements 0 - Exam Gen: This 78-year-old male, no acute distress, well-nourished HEENT: Head is atraumatic, normocephalic. Pupils equal, round. Sclerae is anicteric. NECK: Supple. No JVD. No lymphadenopathy. No thyromegaly. LUNGS: Clear to auscultation. No wheezes or rhonchi. No intercostal retractions. HEART: Regular rate and rhythm. No murmur. ABDOMEN: Soft. Bowel sounds are present. No rebound, no guarding, midline surgical scar from previous AAA, tenderness to epigastric area EXTREMITIES: No pedal edema. No calf tenderness. NEUROLOGICAL: Patient is awake, alert and oriented x3. Cranial nerves 2 through 12 are grossly intact. - Labs CBC & Chem 7: 02/07/18 08:09 02/07/18 08:09 Labs: Abnormal Lab Results - Last 24 Hours (Table) 02/07/18 02/07/18 Range/Units 08:09 08:09 WBC 13.7 H (3.8-10.6) k/uL Neutrophils # 12.5 H (1.3-7.7) k/uL Lymphocytes # 0.4 L (1.0-4.8) k/uL Potassium 3.2 L (3.5-5.1) mmol/L BUN 24 H (9-20) mg/dL Calcium 7.8 L (8.4-10.2) mg/dL Total Bilirubin 3.6 H (0.2-1.3) mg/dL AST 226 H (17-59) U/L ALT 282 H (21-72) U/L Alkaline Phosphatase 217 H (38-126) U/L Total Protein 4.7 L (6.3-8.2) g/dL Albumin 2.6 L (3.5-5.0) g/dL Lipase 620 H (23-300) U/L Microbiology - Last 24 Hours (Table) 02/06/18 04:10 Blood Culture Gram Stain - Preliminary Blood Blood Culture - Preliminary Gram Neg Bacilli 02/06/18 04:10 Blood Culture - Final Blood Assessment and Plan Plan: 1. Severe epigastric pain secondary to cholecystitis, and possible Choledolthiasis status post ERCP and plan for eventual cholecystectomy. continue Flagyl, continue levofloxacin, surgical consult appreciated, possible surgical intervention Wednesday for cholecystectomy. Patient may be on a clear liquid diet as tolerated. 2. Cholecystitis, continue Flagyl, continue levofloxacin, possible surgical intervention Wednesday 3. Pancreatitis continue IV antibiotics, consult GI, status post ERCP, continue to monitor bilirubin, amylase and lipase, continue to monitor CMP 4. Possible Ascending cholangitis, continue Flagyl, GI consult 5. Atrial fibrillation, hold eliquis at this time, start subcu heparin 5000 units twice a day 5. Hypertension continue Cozaar 12.5 mg daily, continue metoprolol 12.5 mg twice a day, continue amlodipine 10 mg by mouth 7. Hyperlipidemia continue pravastatin 40 mg 8. Coronary artery disease, stable, continue Cozaar, metoprolol, amlodipine, pravastatin 9. GI prophylaxis, continue Zofran 10. DVT prophylaxis, subcu heparin 5000 units twice a day Discharge plan: Return home most likely Impression and plan of care have been directed as dictated by the signing physician. Mary Galindo nurse practitioner acting as scribe for signing physician. <Luis Montgomery - Last Filed: 02/15/18 12:44> Objective - Vital Signs Vital signs: Vital Signs Temp 98.2 F 02/11/18 08:00 Pulse 63 02/11/18 12:00 Resp 18 02/11/18 00:00 BP 126/78 02/11/18 12:00 Pulse Ox 93 L 02/11/18 12:00 - Labs CBC & Chem 7: 02/11/18 06:38 02/11/18 06:38
[2018-02-07] MEDS: PRAVASTATIN SODIUM 40 MG TAB PO SCH (21:44)
[2018-02-08] MEDS: metroNIDAZOLE-NS PMX 500 MG in SALINE 1 100ML.BAG IVPB SCH ×3 (05:33→22:36)
[2018-02-08] MEDS: METOPROLOL TARTRATE 12.5 MG TAB PO SCH ×2 (08:07→20:51)
[2018-02-08] MEDS: DOXAZOSIN 4 MG TAB PO SCH (08:07)
[2018-02-08] MEDS: SENNOSIDES 8.6 MG TAB PO SCH ×2 (08:07→20:51)
[2018-02-08] MEDS: LOSARTAN 25 MG TAB PO SCH (08:07)
[2018-02-08] MEDS: HEPARIN SODIUM,PORCINE 5,000 UNIT/ML 1 ML VIAL SQ SCH ×2 (08:07→20:52)
[2018-02-08] MEDS: amLODIPine 10 MG TAB PO SCH (08:07)
--- NOTE | 2018-02-08 08:19 | XR ---
EXAMINATION TYPE: XR chest 2V DATE OF EXAM: 02/08/2018 COMPARISON: 02/06/2018 TECHNIQUE: PA and lateral views submitted. HISTORY: Chest pain FINDINGS: Heart is prominent there is postsurgical changes. No overt failure or pneumothorax. No large area of consolidation. Hypertrophic and degenerative change of the spine. Atherosclerotic change aorta. Arthr opathy of the shoulders. IMPRESSION: 1. No acute process.
[2018-02-08 08:36] LABS: Basophils % (A) 0 %; Eosinophils # (A) 0.1 k/uL (0-0.7); Eosinophils % (A) 1 %; HCT 46.8 % (39.0-53.0); HGB 15.6 gm/dL (13.0-17.5); Lymphocytes # (A) 0.7 k/uL (1.0-4.8); Lymphocytes % (A) 6 %; MCHC 33.4 g/dL (31.0-37.0); MCV 83.6 fL (80.0-100.0); Mean Platelet Volume 8.1; Monocytes # (A) 0.6 k/uL (0-1.0); Monocytes % (A) 5 %; Neutrophils # (A) 9.6 k/uL (1.3-7.7); Neutrophils % (A) 86 %; Platelet Count 185 k/uL (150-450); RDW 13.9 % (11.5-15.5); WBC 11.2 k/uL (3.8-10.6)
[2018-02-08 08:46] LABS: Albumin 3.1 g/dL (3.5-5.0); Bilirubin, Conjugated 1.3 mg/dL (0.0-0.3); Bilirubin, Delta 1.6 mg/dL (0.0-0.2); Bilirubin,Unconjugated 1.4 mg/dL (0.0-1.1); Calcium 8.3 mg/dL (8.4-10.2); Potassium 3.2 mmol/L (3.5-5.1); Total Bilirubin 4.3 mg/dL (0.2-1.3); Total Protein 5.5 g/dL (6.3-8.2)
[2018-02-08] MEDS: POTASSIUM CHLORIDE ER 20 MEQ TAB.ER PO SCH ×2 (08:58→10:02)
[2018-02-08] MEDS: CALCIUM CARBONATE 500 MG CHEWABLE PO PRN (08:58)
[2018-02-08] MEDS: LEVOFLOXACIN 500MG-D5W PMX 500 MG in DEXTROSE/WATER 1 100ML.BAG IVPB SCH (10:02)
[2018-02-08] MEDS ORDERED: POTASSIUM CHLORIDE ER 20 MEQ TAB.ER PO SCH (11:30)
--- NOTE | 2018-02-08 11:32 | P.PN ---
Subjective This is a pleasant 78-year-old male past medical history significant for chronic persistent atrial fibrillation on long-term anticoagulation, coronary artery disease status post bypass grafting, hypertension and dyslipidemia. He follows with Dr. Faye in the office. He presented to the hospital with symptoms of abdominal pain and has been diagnosed with acute cholecystitis and is schedule to undergo surgery today around noontime. He was seen in the office in July and underwent full cardiac workup prior to hip surgery. Stress test and echocardiogram performed. Echocardiogram at that time revealed mildly decreased LV systolic function with ejection fraction 40-45 %. Repeat echocardiogram obtained today shows decrease in LV systolic function with ejection fraction 30-35%. Currently maintained on amlodipine 10 mg daily, pravastatin 40 mg daily, terazosin 5 mg daily, lopressor 12.5 mg daily and losartane 12.5 mg daily. Eliquis has been held, last dose 02/05 in the PM. He was given a dose of IV lasix yesterday secondary to significant elevated BNP and change in systolic function. He is seen and examined by myself and Dr. Guevara resting comfortably laying flat in bed. He denies chest pain, shortness of breath, dizziness or palpitations. Blood pressure 131/77 heart rate 76 afebrile maintaining oxygen saturation on room air. Laboratory data reviewed, WBC 11.2, hemoglobin 15.6, platelets 185, sodium 141, potassium 3.2, creatinine 1.03. Plan: Continue current medical regimen. Stable for surgery today. Cautious fluid administration intra and post operatively. Maintain optimal blood pressure. Encourage use of incentive spirometer and deep breathing. Objective - Vital Signs Vital signs: Vital Signs Temp 98.3 F 02/08/18 07:12 Pulse 76 02/08/18 07:12 Resp 18 02/08/18 07:12 BP 131/77 02/08/18 07:12 Pulse Ox 94 L 02/08/18 07:12 Intake & Output 02/07/18 02/08/18 02/08/18 18:59 06:59 18:59 Intake Total 790 1080 Output Total 450 Balance 790 630 Intake: IV 250 Oral 540 1080 Output: Urine 450 Other: Voiding Method Toilet # Voids 2 2 # Bowel Movements 1 - Exam GENERAL: Well-appearing, well-nourished and in no acute distress. Hard of hearing. NECK: Supple without JVD or thyromegaly. LUNGS: Breath sounds clear to auscultation bilaterally. Respiration equal and unlabored. No wheezes, rales or rhonchi. HEART: Irregular rate and rhythm with systolic ejection murmur at the left sternal border, no rubs or gallops. S1 and S2 heard. EXTREMITIES: Normal range of motion, no edema. No clubbing or cyanosis. Peripheral pulses intact. - Labs CBC & Chem 7: 02/08/18 08:02 02/08/18 08:02 Labs: Abnormal Lab Results - Last 24 Hours (Table) 02/08/18 02/08/18 Range/Units 08:02 08:02 WBC 11.2 H (3.8-10.6) k/uL Neutrophils # 9.6 H (1.3-7.7) k/uL Lymphocytes # 0.7 L (1.0-4.8) k/uL Potassium 3.2 L (3.5-5.1) mmol/L BUN 21 H (9-20) mg/dL Calcium 8.3 L (8.4-10.2) mg/dL Total Bilirubin 4.3 H (0.2-1.3) mg/dL Conjugated Bilirubin 1.3 H (0.0-0.3) mg/dL Unconjugated Bilirubin 1.4 H (0.0-1.1) mg/dL Delta Bilirubin 1.6 H (0.0-0.2) mg/dL AST 160 H (17-59) U/L ALT 261 H (21-72) U/L Alkaline Phosphatase 344 H (38-126) U/L Total Protein 5.5 L (6.3-8.2) g/dL Albumin 3.1 L (3.5-5.0) g/dL Microbiology - Last 24 Hours (Table) 02/06/18 04:10 Blood Culture Gram Stain - Final Blood Blood Culture - Final Escherichia coli Citrobacter koseri Assessment and Plan Assessment: ASSESSMENT Acute cholecystitis Chronic systolic heart failure with worsening EF on most recent echo, with elevated NTproBNP 8800. Mild exacerbation not excluded. Will given one dose of IV lasix and repeat chest xray in the morning. Leukocytosis Hypokalemia, replaced. Elevated liver enzymes Pancreatitis Chronic persistent atrial fibrillation on [place] anticoagulation with Eliquis Coronary artery disease s/p bypass grafting 2007. TY to LAD, SVG to PDA and SVG to OM. Hypertension Dyslipidemia PLAN Continue current medical regimen. Stable for surgery today. Cautious fluid administration intra and post operatively. Maintain optimal blood pressure. Encourage use of incentive spirometer and deep breathing. We will continue to follow. Nurse Practitioner note has been reviewed, I agree with a documented findings and plan of care. Patient was seen and examined.
--- NOTE | 2018-02-08 12:03 | P.PN ---
Subjective Progress Note Date: 02/08/18 Pt seen and examined at bedside. States abdominal pain has resolved. Underwent ERCP yesterday with sphincterotomy, no stones were noted. No additional acute events. Objective - Vital Signs Vital signs: Vital Signs Temp 98.3 F 02/08/18 07:12 Pulse 76 02/08/18 07:12 Resp 18 02/08/18 07:12 BP 131/77 02/08/18 07:12 Pulse Ox 94 L 02/08/18 07:12 Intake & Output 02/07/18 02/08/18 02/08/18 18:59 06:59 18:59 Intake Total 790 1080 Output Total 450 Balance 790 630 Intake: IV 250 Oral 540 1080 Output: Urine 450 Other: Voiding Method Toilet # Voids 2 2 # Bowel Movements 1 - Constitutional General appearance: Present: cooperative, no acute distress - Respiratory Details: No difficulty with respiration - Gastrointestinal Gastrointestinal Comment(s): Soft, nontender, nondistended, no rebound, no guarding - Psychiatric Psychiatric: Present: A&O x's 3 - Labs CBC & Chem 7: 02/08/18 08:02 02/08/18 08:02 Labs: Abnormal Lab Results - Last 24 Hours (Table) 02/08/18 02/08/18 Range/Units 08:02 08:02 WBC 11.2 H (3.8-10.6) k/uL Neutrophils # 9.6 H (1.3-7.7) k/uL Lymphocytes # 0.7 L (1.0-4.8) k/uL Potassium 3.2 L (3.5-5.1) mmol/L BUN 21 H (9-20) mg/dL Calcium 8.3 L (8.4-10.2) mg/dL Total Bilirubin 4.3 H (0.2-1.3) mg/dL Conjugated Bilirubin 1.3 H (0.0-0.3) mg/dL Unconjugated Bilirubin 1.4 H (0.0-1.1) mg/dL Delta Bilirubin 1.6 H (0.0-0.2) mg/dL AST 160 H (17-59) U/L ALT 261 H (21-72) U/L Alkaline Phosphatase 344 H (38-126) U/L Total Protein 5.5 L (6.3-8.2) g/dL Albumin 3.1 L (3.5-5.0) g/dL Microbiology - Last 24 Hours (Table) 02/06/18 04:10 Blood Culture Gram Stain - Final Blood Blood Culture - Final Escherichia coli Citrobacter koseri Assessment and Plan (1) Cholecystitis Narrative/Plan: 78-year-old male with cholecystitis, questionable choledocholithiasis - Cardiology consultation appreciated. The patient is noted to be appropriate cardiac risk for surgery with anesthesia. Eliquis is held at this time. We will need 48 hours without Eliquis prior to surgery.. - I did discuss case with gastroenterology. ERCP was completed with sphincterotomy. No stones were noted. - Total bilirubin elevated to 4.3. Initially, plan was for laparoscopic cholecystectomy today, however due to increase in total bilirubin, surgery will be postponed. Will await a downward trend and bilirubin prior to surgery. - Continue medical management - Plan is for eventual cholecystectomy after anticoagulation is held and bilirubin levels are followed with gastroenterology input Current Visit: Yes Status: Acute Code(s): K81.9 - CHOLECYSTITIS, UNSPECIFIED SNOMED Code(s): 08069842
--- NOTE | 2018-02-08 13:57 | P.PN ---
Subjective Progress Note Date: 02/08/18 This is a 78-year-old male patient of Dr. Haley with a past medical history of persistent atrial fibrillation, coronary artery disease, status post CABG, hyperlipidemia, hypertension he is admitted with cholecystitis. Patient had a ultrasound outpatient that showed gallstones. Patient presented to the ER yesterday with complaints of severe epigastric abdominal pain radiating to the right shoulder and right clavicle. He was feeling nauseous at that time without any emesis. Patient was having normal bowel movements per self. Patient is resting at this time without any complaint of abdominal pain. Patient has been seen by surgery and cardiology. Will hold eliquis at this time to proceed with surgery possibly on Wednesday. Due to elevated bilirubin, continue to monitor bilirubin level and consult GI for possible ERCP on Wednesday. Patient denies any nausea or vomiting at this time he denies any constipation or diarrhea. WBC 11.6, total bilirubin 2.2, AST 142, alkaline phosphatase 186 lipase 528. 02/07: Today, total bilirubin and liver enzymes are higher. ProBNP was 8800, lipase 620. Patient underwent ERCP with biliary sphincterotomy and balloon extraction with Dr. Leggett today. No stone was seen exiting the ampulla. Pancreatic duct intentionally not cannulated. Patient was started on a clear liquid diet following. 02/08: Patient denies any abdominal pain. Chest x-ray shows no acute process. Patient has been afebrile. Pulse ox is 94% on room air. White count is improved to 11.2, potassium will be replaced. Creatinine is 1.03. Liver function tests are slightly improved from yesterday. AST 160, ALT 261 and alkaline phosphatase 344. Patient is continued on Levaquin and Flagyl. Patient is scheduled for laparoscopic cholecystectomy this afternoon. Patient denies having any chest pain, shortness of breath. No nausea or vomiting. Patient's discharge plan is to return home. Review Of Systems: Constitutional: No fever, no chills, no night sweats. No weight change. No weakness, fatigue or lethargy. EENT: No headache. No blurred vision or double vision, no loss of vision. Lungs: No shortness of breath, cough, no sputum production. No wheezing. Cardiovascular: No chest pain, no lower extremity edema. No palpitations. Abdominal: No abdominal pain. No nausea, vomiting. No diarrhea. No constipation. No bloody or tarry stools. No loss of appetite. Genitourinary: No dysuria, increased frequency, urgency. No urinary retention. Musculoskeletal: No myalgias. No muscle weakness, no gait dysfunction, no frequent falls. Integumentary: No wounds, no lesions. No rash or pruritus. No unusual bruising. Objective - Vital Signs Vital signs: Vital Signs Temp 98.3 F 02/08/18 07:12 Pulse 76 02/08/18 07:12 Resp 18 02/08/18 07:12 BP 131/77 02/08/18 07:12 Pulse Ox 94 L 02/08/18 07:12 Intake & Output 02/07/18 02/08/18 02/08/18 18:59 06:59 18:59 Intake Total 790 1080 Output Total 450 Balance 790 630 Intake: IV 250 Oral 540 1080 Output: Urine 450 Other: Voiding Method Toilet # Voids 2 2 # Bowel Movements 1 - Exam Gen: This 78-year-old male, no acute distress, well-nourished HEENT: Head is atraumatic, normocephalic. Pupils equal, round. Sclerae is anicteric. NECK: Supple. No JVD. No lymphadenopathy. No thyromegaly. LUNGS: Clear to auscultation. No wheezes or rhonchi. No intercostal retractions. HEART: Regular rate and rhythm. No murmur. ABDOMEN: Soft. Bowel sounds are present. No rebound, no guarding, midline surgical scar from previous AAA, tenderness to epigastric area EXTREMITIES: No pedal edema. No calf tenderness. NEUROLOGICAL: Patient is awake, alert and oriented x3. Cranial nerves 2 through 12 are grossly intact. - Labs CBC & Chem 7: 02/08/18 08:02 02/08/18 08:02 Labs: Abnormal Lab Results - Last 24 Hours (Table) 02/07/18 02/07/18 Range/Units 08: 08:09 WBC 13.7 H (3.8-10.6) k/uL Neutrophils # 12.5 H (1.3-7.7) k/uL Lymphocytes # 0.4 L (1.0-4.8) k/uL Potassium 3.2 L (3.5-5.1) mmol/L BUN 24 H (9-20) mg/dL Calcium 7.8 L (8.4-10.2) mg/dL Total Bilirubin 3.6 H (0.2-1.3) mg/dL AST 226 H (17-59) U/L ALT 282 H (21-72) U/L Alkaline Phosphatase 217 H (38-126) U/L Total Protein 4.7 L (6.3-8.2) g/dL Albumin 2.6 L (3.5-5.0) g/dL Lipase 620 H (23-300) U/L Microbiology - Last 24 Hours (Table) 02/06/18 04:10 Blood Culture Gram Stain - Preliminary Blood Blood Culture - Preliminary Gram Neg Bacilli Assessment and Plan Plan: 1. Severe epigastric pain secondary to cholecystitis, and possible Choledolthiasis status post ERCP and plan for eventual cholecystectomy. continue Flagyl, continue levofloxacin, surgical consult appreciated, laparoscopic cholecystectomy this afternoon. 2. Cholecystitis, continue Flagyl, continue levofloxacin, possible surgical intervention Wednesday 3. Pancreatitis continue IV antibiotics, consult GI, status post ERCP, continue to monitor bilirubin, amylase and lipase, continue to monitor CMP 4. Possible Ascending cholangitis, continue Flagyl, GI consult 5. Chronic atrial fibrillation, hold eliquis at this time, continue subcu heparin 5000 units twice a day 5. Hypertension continue Cozaar 12.5 mg daily, continue metoprolol 12.5 mg twice a day, continue amlodipine 10 mg by mouth 7. Hyperlipidemia continue pravastatin 40 mg 8. Coronary artery disease, stable, continue Cozaar, metoprolol, amlodipine, pravastatin 9. GI prophylaxis, pepcid. 10. DVT prophylaxis, subcu heparin 5000 units twice a day Discharge plan: Return home most likely Impression and plan of care have been directed as dictated by the signing physician. Mary Galindo nurse practitioner acting as scribe for signing physician.
[2018-02-08] MEDS: PRAVASTATIN SODIUM 40 MG TAB PO SCH (20:51)
[2018-02-08] MEDS ORDERED: HYDROmorphone 0.5 MG/0.5 ML SYRINGE IVP PRN (22:05)
[2018-02-08] MEDS ORDERED: MORPHINE SULFATE 2 MG/ML SYRINGE IV PRN (22:05)
[2018-02-08] MEDS: LACTATED RINGERS 1,000 ML IV SCH (23:00)
[2018-02-09 05:02] LABS: Hepatitis A Antibody IgM Non-Reactive (Non-Reactive); Hepatitis B Core IgM Non-Reactive (Non-Reactive)
[2018-02-09] MEDS: metroNIDAZOLE-NS PMX 500 MG in SALINE 1 100ML.BAG IVPB SCH ×3 (06:03→21:25)
[2018-02-09 07:45] LABS: Basophils % (A) 0 %; Eosinophils # (A) 0.1 k/uL (0-0.7); Eosinophils % (A) 2 %; HCT 44.5 % (39.0-53.0); HGB 14.5 gm/dL (13.0-17.5); Lymphocytes # (A) 0.7 k/uL (1.0-4.8); Lymphocytes % (A) 9 %; MCH 27.7 pg (25.0-35.0); MCHC 32.5 g/dL (31.0-37.0); MCV 85.3 fL (80.0-100.0); Mean Platelet Volume 7.9; Monocytes # (A) 0.4 k/uL (0-1.0); Monocytes % (A) 5 %; Neutrophils # (A) 6.9 k/uL (1.3-7.7); Neutrophils % (A) 83 %; Platelet Count 147 k/uL (150-450); RBC 5.21 m/uL (4.30-5.90); WBC 8.4 k/uL (3.8-10.6)
[2018-02-09 08:04] LABS: ALT 173 U/L (21-72); AST 74 U/L (17-59); Albumin 2.6 g/dL (3.5-5.0); Alkaline Phosphatase 308 U/L (38-126); Anion Gap 8 mmol/L; Blood Urea Nitrogen 16 mg/dL (9-20); Carbon Dioxide 23 mmol/L (22-30); Chloride 108 mmol/L (98-107); Glucose 72 mg/dL (74-99); Lipase 153 U/L (23-300); Potassium 3.5 mmol/L (3.5-5.1); Sodium 139 mmol/L (137-145); Total Bilirubin 2.5 mg/dL (0.2-1.3); Total Protein 4.9 g/dL (6.3-8.2)
--- NOTE | 2018-02-09 10:42 | P.PN ---
Subjective Progress Note Date: 02/09/18 Principal diagnosis: Elevated liver enzymes 78-year-old male admitted with epigastric pain elevated liver enzymes status post ERCP 2 days ago with findings of dilated common bile duct with faint filling defects status post biliary sphincterotomy and balloon stone extraction no stone seen exiting the ampulla. Blood cultures positive E. coli Citrobacter receiving IV antibiotics. LFTs improved today total bilirubin down to 2.5. Hepatitis screen nonreactive. Tentatively scheduled for laparoscopic cholecystectomy tomorrow pending repeat liver function tests in a.m. Afebrile. Minimal abdominal pain. Objective - Vital Signs Vital signs: Vital Signs Temp 98 F 02/09/18 07:00 Pulse 79 02/09/18 07:00 Resp 16 02/09/18 07:00 BP 143/90 02/09/18 07:00 Pulse Ox 96 02/09/18 07:00 Intake & Output 02/08/18 02/09/18 02/09/18 18:59 06:59 18:59 Intake Total 540 840 Balance 540 840 Intake: Intake, IV Titration 360 Amount Lactated Ringers 1,000 ml 360 @ 20 mls/hr IV .Q24H [facility] Rx#:[id number] Oral 540 480 Other: Voiding Method Toilet Toilet # Voids 2 2 - Exam General appearance: The patient is alert, oriented, in no acute distress. HET: Head is normocephalic and atraumatic. Pupils are equal and reactive. Oropharynx is clear without lesions. Neck: Supple without lymphadenopathy. Trachea midline. Heart: S1 S2. Regular rate and rhythm. Lungs: No crackles or wheezes are heard. Abdomen: Soft, mild right upper quadrant tenderness, nondistended with bowel sounds. No peritoneal signs. No palpable organomegaly or masses. Extremities: Normal skin color and turgor. No cyanosis, rash, ulceration, clubbing, or edema. Radial and pedal pulses are 2/4 bilaterally. Neurological: No focal deficits. Strength and sensation are grossly intact. - Labs CBC & Chem 7: 02/09/18 06:56 02/09/18 06:56 Labs: Abnormal Lab Results - Last 24 Hours (Table) 02/09/18 02/09/18 Range/Units 06:56 06:56 Plt Count 147 L (150-450) k/uL Lymphocytes # 0.7 L (1.0-4.8) k/uL Chloride 108 H (98-107) mmol/L Glucose 72 L (74-99) mg/dL Calcium 8.0 L (8.4-10.2) mg/dL Total Bilirubin 2.5 H (0.2-1.3) mg/dL AST 74 H (17-59) U/L ALT 173 H (21-72) U/L Alkaline Phosphatase 308 H (38-126) U/L Total Protein 4.9 L (6.3-8.2) g/dL Albumin 2.6 L (3.5-5.0) g/dL Microbiology - Last 24 Hours (Table) 02/06/18 04:10 Blood Culture Gram Stain - Final Blood Blood Culture - Final Escherichia coli Citrobacter koseri Assessment and Plan (1) Elevated liver enzymes Narrative/Plan: 78-year-old gentleman admitted with severe epigastric pain elevated liver enzymes status post ERCP sphincterotomy balloon stone extraction with dilated CBD 8 mm no stone seen exiting into the ampulla but a faint CBD filling defect seen per cholangiography. Liver function tests have improved. Current Visit: Yes Status: Acute Code(s): R74.8 - ABNORMAL LEVELS OF OTHER SERUM ENZYMES SNOMED Code(s): 603427267 (2) Epigastric pain Current Visit: Yes Status: Acute Code(s): R10.13 - EPIGASTRIC PAIN SNOMED Code(s): 90734165 (3) Status post endoscopic retrograde cholangiopancreatography Current Visit: Yes Status: Acute Code(s): Z98.890 - OTHER SPECIFIED POSTPROCEDURAL STATES SNOMED Code(s): 934328631 (4) Bacteremia Narrative/Plan: Blood cultures positive E. coli Citrobacter Current Visit: Yes Status: Acute Code(s): R78.81 - BACTEREMIA SNOMED Code( s): 6258159 Plan: 1. Diet per surgery. Repeat CMP in a.m. IV antibiotics. Tentative OR tomorrow pending morning chemistries. We'll continue to follow. Assessment and plan a care discussed with Dr. Leggett
[2018-02-09] MEDS: SENNOSIDES 8.6 MG TAB PO SCH ×2 (10:47→21:26)
[2018-02-09] MEDS: METOPROLOL TARTRATE 12.5 MG TAB PO SCH (10:47)
[2018-02-09] MEDS: amLODIPine 10 MG TAB PO SCH (10:47)
[2018-02-09] MEDS: LOSARTAN 25 MG TAB PO SCH (10:47)
[2018-02-09] MEDS: HEPARIN SODIUM,PORCINE 5,000 UNIT/ML 1 ML VIAL SQ SCH ×2 (10:53→21:25)
[2018-02-09] MEDS ORDERED: METOPROLOL TARTRATE 50 MG TAB PO STA (10:57)
[2018-02-09] MEDS: FAMOTIDINE 20 MG TAB PO SCH (11:05)
[2018-02-09] MEDS: DOXAZOSIN 4 MG TAB PO SCH (12:12)
[2018-02-09] MEDS: LEVOFLOXACIN 500MG-D5W PMX 500 MG in DEXTROSE/WATER 1 100ML.BAG IVPB SCH (12:12)
[2018-02-09] MEDS: POTASSIUM CHLORIDE ER 20 MEQ TAB.ER PO SCH (12:21)
[2018-02-09] MEDS ORDERED: ENOXAPARIN 80 MG/0.8 ML SYRINGE SQ STA (12:25)
--- NOTE | 2018-02-09 13:31 | P.PN ---
Subjective Progress Note Date: 02/09/18 Patient seen and examined at bedside. States abdominal pain is improved. He did have an episode of V. tach and is being treated by cardiology. Total bilirubin has decreased to 2.5 today. Objective - Vital Signs Vital signs: Vital Signs Temp 98 F 02/09/18 07:00 Pulse 79 02/09/18 07:00 Resp 16 02/09/18 07:00 BP 114/71 02/09/18 10:45 Pulse Ox 96 02/09/18 07:00 Intake & Output 02/08/18 02/09/18 02/09/18 18:59 06:59 18:59 Intake Total 540 840 Balance 540 840 Intake: Intake, IV Titration 360 Amount Lactated Ringers 1,000 ml 360 @ 20 mls/hr IV .Q24H [facility] Rx#:[id number] Oral 540 480 Other: Voiding Method Toilet Toilet # Voids 2 2 - Constitutional General appearance: Present: cooperative, no acute distress - Respiratory Details: No difficulty with respiration - Gastrointestinal Gastrointestinal Comment(s): Soft, nontender, nondistended, no rebound, no guarding - Psychiatric Psychiatric: Present: A&O x's 3 - Labs CBC & Chem 7: 02/09/18 06:56 02/09/18 06:56 Labs: Abnormal Lab Results - Last 24 Hours (Table) 02/09/18 02/09/18 Range/Units 06:56 06:56 Plt Count 147 L (150-450) k/uL Lymphocytes # 0.7 L (1.0-4.8) k/uL Chloride 108 H (98-107) mmol/L Glucose 72 L (74-99) mg/dL Calcium 8.0 L (8.4-10.2) mg/dL Total Bilirubin 2.5 H (0.2-1.3) mg/dL AST 74 H (17-59) U/L ALT 173 H (21-72) U/L Alkaline Phosphatase 308 H (38-126) U/L Total Protein 4.9 L (6.3-8.2) g/dL Albumin 2.6 L (3.5-5.0) g/dL Assessment and Plan (1) Cholecystitis Narrative/Plan: 78-year-old male with cholecystitis, questionable choledocholithiasis - Cardiology consultation appreciated. The patient is noted to be appropriate cardiac risk for surgery with anesthesia. Eliquis is held at this time. We will need 48 hours without Eliquis prior to surgery.. - I did discuss case with gastroenterology. ERCP was completed with sphincterotomy. No stones were noted. - Total bilirubin has decreased from 4.3 down to 2.5. I had a long discussion with the patient and the patient's family about plan for cholecystectomy. We will await 1 additional day of laboratory values to evaluate for a continued decrease trend in the total bilirubin. - Continue medical management - Plan is for eventual cholecystectomy after anticoagulation is held and bilirubin levels are followed with gastroenterology input Current Visit: Yes Status: Acute Code(s): K81.9 - CHOLECYSTITIS, UNSPECIFIED SNOMED Code(s): 27147996
--- NOTE | 2018-02-09 15:04 | P.PN ---
Subjective Progress Note Date: 02/09/18 This is a 78-year-old male patient of Dr. Haley with a past medical history of persistent atrial fibrillation, coronary artery disease, status post CABG, hyperlipidemia, hypertension he is admitted with cholecystitis. Patient had a ultrasound outpatient that showed gallstones. Patient presented to the ER yesterday with complaints of severe epigastric abdominal pain radiating to the right shoulder and right clavicle. He was feeling nauseous at that time without any emesis. Patient was having normal bowel movements per self. Patient is resting at this time without any complaint of abdominal pain. Patient has been seen by surgery and cardiology. Will hold eliquis at this time to proceed with surgery possibly on Wednesday. Due to elevated bilirubin, continue to monitor bilirubin level and consult GI for possible ERCP on Wednesday. Patient denies any nausea or vomiting at this time he denies any constipation or diarrhea. WBC 11.6, total bilirubin 2.2, AST 142, alkaline phosphatase 186 lipase 528. 02/07: Today, total bilirubin and liver enzymes are higher. ProBNP was 8800, lipase 620. Patient underwent ERCP with biliary sphincterotomy and balloon extraction with Dr. Leggett today. No stone was seen exiting the ampulla. Pancreatic duct intentionally not cannulated. Patient was started on a clear liquid diet following. 02/08: Patient denies any abdominal pain. Chest x-ray shows no acute process. Patient has been afebrile. Pulse ox is 94% on room air. White count is improved to 11.2, potassium will be replaced. Creatinine is 1.03. Liver function tests are slightly improved from yesterday. AST 160, ALT 261 and alkaline phosphatase 344. Patient is continued on Levaquin and Flagyl. Patient is scheduled for laparoscopic cholecystectomy this afternoon. Patient denies having any chest pain, shortness of breath. No nausea or vomiting. Patient's discharge plan is to return home. 02/09: Patient denies having any abdominal pain. No nausea or vomiting. No constipation or diarrhea. He denies chest pain or shortness of breath. Surgery from yesterday was postponed due to elevated bili. Dr. Aguiar is planning on laparoscopic cholecystectomy tomorrow. Patient has had a run of V. tach and cardiology ordered Lopressor 50 mg once. Patient is continued on Levaquin and Flagyl.. Review Of Systems: no change Constitutional: No fever, no chills, no night sweats. No weight change. No weakness, fatigue or lethargy. EENT: No headache. No blurred vision or double vision, no loss of vision. Lungs: No shortness of breath, cough, no sputum production. No wheezing. Cardiovascular: No chest pain, no lower extremity edema. No palpitations. Abdominal: No abdominal pain. No nausea, vomiting. No diarrhea. No constipation. No bloody or tarry stools. No loss of appetite. Genitourinary: No dysuria, increased frequency, urgency. No urinary retention. Musculoskeletal: No myalgias. No muscle weakness, no gait dysfunction, no frequent falls. Integumentary: No wounds, no lesions. No rash or pruritus. No unusual bruising. Objective - Vital Signs Vital signs: Vital Signs Temp 98 F 02/09/18 07:00 Pulse 79 02/09/18 07:00 Resp 16 02/09/18 07:00 BP 143/90 02/09/18 07:00 Pulse Ox 96 02/09/18 07:00 Intake & Output 02/08/18 02/09/18 02/09/18 18:59 06:59 18:59 Intake Total 540 840 Balance 540 840 Intake: Intake, IV Titration 360 Amount Lactated Ringers 1,000 ml 360 @ 20 mls/hr IV .Q24H [facility] Rx#:[id number] Oral 540 480 Other: Voiding Method Toilet Toilet # Voids 2 2 - Exam Gen: This 78-year-old male, no acute distress, well-nourished HEENT: Head is atraumatic, normocephalic. Pupils equal, round. Sclerae is anicteric. NECK: Supple. No JVD. No lymphadenopathy. No thyromegaly. LUNGS: Clear to auscultation. No wheezes or rhonchi. No intercostal retractions. HEART: Regular rate and rhythm. No murmur. ABDOMEN: Soft. Bowel sounds are present. No rebound, no guarding, midline surgical scar from previous AAA, no tenderness EXTREMITIES: No pedal edema. No calf tenderness. NEUROLOGICAL: Patient is awake, alert and oriented x3. Cranial nerves 2 through 12 are grossly intact. - Labs CBC & Chem 7: 02/09/18 06:56 02/09/18 06:56 Labs: Abnormal Lab Results - Last 24 Hours (Table) 02/09/18 02/09/18 Range/Units 06:56 06:56 Plt Count 147 L (150-450) k/uL Lymphocytes # 0.7 L (1.0-4.8) k/uL Chloride 108 H (98-107) mmol/L Glucose 72 L (74-99) mg/dL Calcium 8.0 L (8.4-10.2) mg/dL Total Bilirubin 2.5 H (0.2-1.3) mg/dL AST 74 H (17-59) U/L ALT 173 H (21-72) U/L Alkaline Phosphatase 308 H (38-126) U/L Total Protein 4.9 L (6.3-8.2) g/dL Albumin 2.6 L (3.5-5.0) g/dL Microbiology - Last 24 Hours (Table) 02/06/18 04:10 Blood Culture Gram Stain - Final Blood Blood Culture - Final Escherichia coli Citrobacter koseri Assessment and Plan Plan: 1. Severe epigastric pain secondary to cholecystitis, and possible Choledolthiasis status post ERCP and plan for eventual cholecystectomy. continue Flagyl, continue levofloxacin, surgical consult appreciated, laparoscopic cholecystectomy scheduled for with Dr. Aguiar. 2. Cholecystitis, continue Flagyl, continue levofloxacin, possible surgical intervention Wednesday 3. Pancreatitis continue IV antibiotics, consult GI, status post ERCP, continue to monitor bilirubin, amylase and lipase, continue to monitor CMP 4. Possible Ascending cholangitis, continue Flagyl, GI consult 5. Chronic atrial fibrillation, hold eliquis at this time, continue subcu heparin 5000 units twice a day 5. Hypertension continue Cozaar 12.5 mg daily, continue metoprolol 12.5 mg twice a day, continue amlodipine 10 mg by mouth 7. Hyperlipidemia continue pravastatin 40 mg 8. Coronary artery disease, stable, continue Cozaar, metoprolol, amlodipine, pravastatin 9. GI prophylaxis, pepcid. 10. DVT prophylaxis, subcu heparin 5000 units twice a day Discharge plan: Return home most likely Impression and plan of care have been directed as dictated by the signing physician. Mary Galindo nurse practitioner acting as scribe for signing physician.
--- NOTE | 2018-02-09 15:42 | P.PN ---
Subjective This is a pleasant 78-year-old male past medical history significant for chronic persistent atrial fibrillation on long-term anticoagulation, coronary artery disease status post bypass grafting, hypertension and dyslipidemia. He follows with Dr. Faye in the office. He presented to the hospital with symptoms of abdominal pain and has been diagnosed with acute cholecystitis and is schedule to undergo surgery tomorrow with Dr. Aguiar. Eliquis has been held since admission. Today while up in the bathroom he started with rapid ventricular response and had multiple runs of non-sustained VT. Nurse called me to the bedside. Stat EKG was obtained and confirmed a-fib with RVR rate was 150-180. Blood pressure was 114/71. PO dose of 50 mg lopressor was given. Rate has come down nicely. He denies chest pain, shortness of breath, palpitations or dizziness. Blood pressure now is 121/76 heart rate 66. Laboratory data reviewed, WBC 8.4, plt 147, sodium 139, potassium 3.5, creatinine 0.86, total billirubin 2.5, AST 74, ALT 173, alk phos 308. Objective - Vital Signs Vital signs: Vital Signs Temp 98 F 02/09/18 14:14 Pulse 66 02/09/18 14:14 Resp 16 02/09/18 14:14 BP 121/76 02/09/18 14:14 Pulse Ox 97 02/09/18 14:14 Intake & Output 02/08/18 02/09/18 02/09/18 18:59 06:59 18:59 Intake Total 540 840 Balance 540 840 Intake: Intake, IV Titration 360 Amount Lactated Ringers 1,000 ml 360 @ 20 mls/hr IV .Q24H [facility] Rx#:[id number] Oral 540 480 Other: Voiding Method Toilet Toilet # Voids 2 2 - Exam GENERAL: Well-appearing, well-nourished and in no acute distress. Hard of hearing. NECK: Supple without JVD or thyromegaly. LUNGS: Breath sounds clear to auscultation bilaterally. Respiration equal and unlabored. No wheezes, rales or rhonchi. HEART: Irregular rate and rhythm with systolic ejection murmur at the left sternal border, no rubs or gallops. S1 and S2 heard. EXTREMITIES: Normal range of motion, no edema. No clubbing or cyanosis. Peripheral pulses intact. - Labs CBC & Chem 7: 02/09/18 06:56 02/09/18 06:56 Labs: Abnormal Lab Results - Last 24 Hours (Table) 02/09/18 02/09/18 Range/Units 06:56 06:56 Plt Count 147 L (150-450) k/uL Lymphocytes # 0.7 L (1.0-4.8) k/uL Chloride 108 H (98-107) mmol/L Glucose 72 L (74-99) mg/dL Calcium 8.0 L (8.4-10.2) mg/dL Total Bilirubin 2.5 H (0.2-1.3) mg/dL AST 74 H (17-59) U/L ALT 173 H (21-72) U/L Alkaline Phosphatase 308 H (38-126) U/L Total Protein 4.9 L (6.3-8.2) g/dL Albumin 2.6 L (3.5-5.0) g/dL Assessment and Plan Assessment: ASSESSMENT Acute cholecystitis Chronic systolic heart failure with worsening EF on most recent echo, with elevated NTproBNP 8800. Mild exacerbation not excluded. Will given one dose of IV lasix and repeat chest xray in the morning. Leukocytosis Hypokalemia, replaced. 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 TY to LAD, SVG to PDA and SVG to OM. Hypertension Dyslipidemia PLAN Change metoprolol to 25 mg PO TID. Additional dose of 50 mg was given earlier today for RVR. Check TSH and magnesium level. Ongoing telemetry monitoring. Give one time SQ injection of lovenox. Surgery has been notified. Stable for surgery tomorrow. Cautious fluid administration intra and post operatively. Maintain optimal blood pressure. Encourage use of incentive spirometer and deep breathing. We will continue to follow. Nurse Practitioner note has been reviewed, I agree with a documented findings and plan of care. Patient was seen and examined.
[2018-02-09] MEDS: METOPROLOL TARTRATE 25 MG TAB PO SCH ×2 (16:27→21:26)
[2018-02-09 16:31] LABS: Magnesium 1.9 mg/dL (1.6-2.3)
[2018-02-09] MEDS: LACTATED RINGERS 1,000 ML IV SCH (21:26)
[2018-02-09] MEDS: PRAVASTATIN SODIUM 40 MG TAB PO SCH (21:26)
[2018-02-10] MEDS: metroNIDAZOLE-NS PMX 500 MG in SALINE 1 100ML.BAG IVPB SCH ×3 (05:29→21:06)
[2018-02-10] MEDS: amLODIPine 10 MG TAB PO SCH (07:44)
[2018-02-10] MEDS: LOSARTAN 25 MG TAB PO SCH (07:44)
[2018-02-10] MEDS: SENNOSIDES 8.6 MG TAB PO SCH ×2 (07:45→20:58)
[2018-02-10] MEDS: METOPROLOL TARTRATE 25 MG TAB PO SCH (07:46)
[2018-02-10] MEDS: POTASSIUM CHLORIDE ER 20 MEQ TAB.ER PO SCH (07:46)
[2018-02-10] MEDS: HEPARIN SODIUM,PORCINE 5,000 UNIT/ML 1 ML VIAL SQ SCH ×2 (07:46→20:57)
[2018-02-10 07:51] LABS: Basophils % (A) 0 %; Eosinophils # (A) 0.1 k/uL (0-0.7); Eosinophils % (A) 2 %; HCT 44.3 % (39.0-53.0); HGB 14.4 gm/dL (13.0-17.5); Lymphocytes # (A) 0.8 k/uL (1.0-4.8); Lymphocytes % (A) 10 %; MCHC 32.5 g/dL (31.0-37.0); MCV 86.1 fL (80.0-100.0); Mean Platelet Volume 8.1; Monocytes # (A) 0.4 k/uL (0-1.0); Monocytes % (A) 6 %; Neutrophils # (A) 6.3 k/uL (1.3-7.7); Neutrophils % (A) 81 %; Platelet Count 150 k/uL (150-450); RBC 5.14 m/uL (4.30-5.90); WBC 7.8 k/uL (3.8-10.6)
[2018-02-10] MEDS: DOXAZOSIN 4 MG TAB PO SCH (07:54)
[2018-02-10 08:04] LABS: ALT 124 U/L (21-72); AST 49 U/L (17-59); Albumin 2.6 g/dL (3.5-5.0); Alkaline Phosphatase 286 U/L (38-126); Anion Gap 23 mmol/L; Blood Urea Nitrogen 26 mg/dL (9-20); Calcium 8.1 mg/dL (8.4-10.2); Carbon Dioxide 24 mmol/L (22-30); Chloride 91 mmol/L (98-107); Glucose 93 mg/dL (74-99); Lipase 95 U/L (23-300); Potassium 3.7 mmol/L (3.5-5.1); Sodium 138 mmol/L (137-145); Total Bilirubin 1.8 mg/dL (0.2-1.3); Total Protein 4.8 g/dL (6.3-8.2)
[2018-02-10] MEDS: FAMOTIDINE 20 MG TAB PO SCH (08:06)
[2018-02-10] MEDS ORDERED: MAGNESIUM SULFATE-D5W PMX 1 GM in DEXTROSE/WATER 1 100ML.BAG IVPB ONE (09:38)
[2018-02-10] MEDS ORDERED: METOPROLOL TARTRATE 50 MG TAB PO STA (10:39)
[2018-02-10] MEDS: LEVOFLOXACIN 500MG-D5W PMX 500 MG in DEXTROSE/WATER 1 100ML.BAG IVPB SCH (10:54)
--- NOTE | 2018-02-10 10:59 | P.PN ---
Subjective This is a pleasant 78-year-old male past medical history significant for chronic persistent atrial fibrillation on long-term anticoagulation, coronary artery disease status post bypass grafting, hypertension and dyslipidemia. He follows with Dr. Faye in the office. He presented to the hospital with symptoms of abdominal pain and has been diagnosed with acute cholecystitis and is schedule to undergo surgery today with Dr. Aguiar. Eliquis has been held since admission. Yesterday he had 3 runs of non-sustained VT while up ambulating in the bathroom along with rapid ventricular response. He was symptomatic. Beta blockers weer increased. Electrolytes and TSH obtained were normal. Again this morning while getting up to the bathroom his heart rate went up to 170 and he had a 5 beat run of non-sustained VT. AM beta blockers had no yet been given. He was walked back to bed and his heart rate went down to less than 100. He could feel his heart racing but denies chest pain, shortness of breath or dizziness. Blood pressure 130/66 heart rate at the time of my exam 80-90's. He verbalizes frustration over being still in the hospital despite having no pain in his abdomen and awaiting surgery. Discussion had with Dr. Aguiar regarding his heart rate and ongoing pre-operative evaluation. Objective - Vital Signs Vital signs: Vital Signs Temp 98.2 F 02/10/18 07:00 Pulse 90 02/10/18 08:16 Resp 18 02/10/18 07:00 BP 130/66 02/10/18 07:00 Pulse Ox 97 02/10/18 07:00 Intake & Output 02/09/18 02/10/18 02/10/18 18:59 06:59 18:59 Intake Total 160 260 Balance 160 260 Intake: IV 160 Lactated Ringers 1,000 ml 160 @ 20 mls/hr IV .Q24H [facility] Rx#:[id number] Intake, IV Titration 260 Amount Lactated Ringers 1,000 ml 160 @ 20 mls/hr IV .Q24H [facility] Rx#:[id number] metroNIDAZOLE-NS PMX 500 100 mg In Saline 1 100ml.bag @ 100 mls/hr IVPB Q8H [facility] Rx#:[id number] Other: Voiding Method Toilet Urinal # Voids 1 - Exam GENERAL: Well-appearing, well-nourished and in no acute distress. Hard of hearing. NECK: Supple without JVD or thyromegaly. LUNGS: Breath sounds clear to auscultation bilaterally. Respiration equal and unlabored. No wheezes, rales or rhonchi. HEART: Irregular rate and rhythm with systolic ejection murmur at the left sternal border, no rubs or gallops. S1 and S2 heard. EXTREMITIES: Normal range of motion, no edema. No clubbing or cyanosis. Peripheral pulses intact. - Labs CBC & Chem 7: 02/10/18 07:20 02/10/18 07:20 Labs: Abnormal Lab Results - Last 24 Hours (Table) 02/10/18 02/10/18 Range/Units 07:20 07:20 Lymphocytes # 0.8 L (1.0-4.8) k/uL Chloride 91 L (98-107) mmol/L BUN 26 H (9-20) mg/dL Calcium 8.1 L (8.4-10.2) mg/dL Total Bilirubin 1.8 H (0.2-1.3) mg/dL ALT 124 H (21-72) U/L Alkaline Phosphatase 286 H (38-126) U/L Total Protein 4.8 L (6.3-8.2) g/dL Albumin 2.6 L (3.5-5.0) g/dL Assessment and Plan Assessment: ASSESSMENT Acute cholecystitis Chronic systolic heart failure with worsening EF on most recent echo, with elevated NTproBNP 8800. Mild exacerbation not excluded. Will given one dose of IV lasix and repeat chest xray in the morning. Leukocytosis, resolved. Hypokalemia, replaced. 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 TY to LAD, SVG to PDA and SVG to OM. Hypertension Dyslipidemia PLAN Give additional dose of lopressor 50 mg now and increase to 50 mg BID. Stable for surgery today, has been discussed with Dr. Aguiar. Cautious fluid administration intra and post operatively. Maintain optimal blood pressure. Encourage use of incentive spirometer and deep breathing. Eliquis should be resumed as soon as possible post-operatively when appropriate per surgery. We will continue to follow. Nurse Practitioner note has been reviewed, I agree with a documented findings and plan of care. Patient was seen and examined.
--- NOTE | 2018-02-10 13:02 | P.PN ---
Subjective Progress Note Date: 02/10/18 This is a 78-year-old male patient of Dr. Haley with a past medical history of persistent atrial fibrillation, coronary artery disease, status post CABG, hyperlipidemia, hypertension he is admitted with cholecystitis. Patient had a ultrasound outpatient that showed gallstones. Patient presented to the ER yesterday with complaints of severe epigastric abdominal pain radiating to the right shoulder and right clavicle. He was feeling nauseous at that time without any emesis. Patient was having normal bowel movements per self. Patient is resting at this time without any complaint of abdominal pain. Patient has been seen by surgery and cardiology. Will hold eliquis at this time to proceed with surgery possibly on Wednesday. Due to elevated bilirubin, continue to monitor bilirubin level and consult GI for possible ERCP on Wednesday. Patient denies any nausea or vomiting at this time he denies any constipation or diarrhea. WBC 11.6, total bilirubin 2.2, AST 142, alkaline phosphatase 186 lipase 528. 02/07: Today, total bilirubin and liver enzymes are higher. ProBNP was 8800, lipase 620. Patient underwent ERCP with biliary sphincterotomy and balloon extraction with Dr. Leggett today. No stone was seen exiting the ampulla. Pancreatic duct intentionally not cannulated. Patient was started on a clear liquid diet following. 02/08: Patient denies any abdominal pain. Chest x-ray shows no acute process. Patient has been afebrile. Pulse ox is 94% on room air. White count is improved to 11.2, potassium will be replaced. Creatinine is 1.03. Liver function tests are slightly improved from yesterday. AST 160, ALT 261 and alkaline phosphatase 344. Patient is continued on Levaquin and Flagyl. Patient is scheduled for laparoscopic cholecystectomy this afternoon. Patient denies having any chest pain, shortness of breath. No nausea or vomiting. Patient's discharge plan is to return home. 02/09: Patient denies having any abdominal pain. No nausea or vomiting. No constipation or diarrhea. He denies chest pain or shortness of breath. Surgery from yesterday was postponed due to elevated bili. Dr. Aguiar is planning on laparoscopic cholecystectomy tomorrow. Patient has had a run of V. tach and cardiology ordered Lopressor 50 mg once. Patient is continued on Levaquin and Flagyl. 02/10 patient examined bedside. He had a brief run of nonsustained V. tach this morning when patient walked to the bathroom. Heart rate improved after patient came to rest. Magnesium was 1.9 status post 1 g given. Additional dose of 50 mg of Lopressor given the increased her Lopressor to 50 twice a day. Stable for surgery per cardiology Review Of Systems: no change Constitutional: No fever, no chills, no night sweats. No weight change. No weakness, fatigue or lethargy. EENT: No headache. No blurred vision or double vision, no loss of vision. Lungs: No shortness of breath, cough, no sputum production. No wheezing. Cardiovascular: No chest pain, no lower extremity edema. No palpitations. No dizziness no lightheadedness Abdominal: No abdominal pain. No nausea, vomiting. No diarrhea. No constipation. No bloody or tarry stools. No loss of appetite. Genitourinary: No dysuria, increased frequency, urgency. No urinary retention. Musculoskeletal: No myalgias. No muscle weakness, no gait dysfunction, no frequent falls. Integumentary: No wounds, no lesions. No rash or pruritus. No unusual bruising. Objective - Vital Signs Vital signs: Vital Signs Temp 98.2 F 02/10/18 07:00 Pulse 90 02/10/18 08:16 Resp 18 02/10/18 07:00 BP 130/66 02/10/18 07:00 Pulse Ox 97 02/10/18 07:00 Intake & Output 02/09/18 02/10/18 02/10/18 18:59 06:59 18:59 Intake Total 160 260 Balance 160 260 Intake: IV 160 Lactated Ringers 1,000 ml 160 @ 20 mls/hr IV .Q24H MARLENE Rx#:[id number] Intake, IV Titration 260 Amount Lactated Ringers 1,000 ml 160 @ 20 mls/hr IV .Q24H MARLENE Rx#:[id number] metroNIDAZOLE-NS PMX 500 100 mg In Saline 1 100ml.bag @ 100 mls/hr IVPB Q8H MARLENE Rx#:[id number] Other: Voiding Method Toilet Urinal # Voids 1 1 - Exam GENERAL: This is a 78 -year-old male in no apparent distress at the time of my examination. HEENT: Head is atraumatic, normocephalic. Pupils are equal, round. Sclerae anicteric. Conjunctivae are clear. Mucous membranes of the mouth are moist. Neck is supple. There is no jugular venous distention. No carotid bruit is heard. LUNGS: Clear to auscultation no wheezes, rales or rhonchi. No chest wall tenderness is noted on palpation or with deep breathing. HEART: Regular rate and rhythm with systolic murmurs in the fifth intercostal space, rubs or gallops. S1 and S2 heard. ABDOMEN: Soft, nontender. Bowel sounds are heard. No organomegaly noted. EXTREMITIES: 2+ peripheral pulses with no evidence of peripheral edema and no calf tenderness noted. NEUROLOGIC: Patient is awake, alert and oriented x3. - Labs CBC & Chem 7: 02/10/18 07:20 02/10/18 07:20 Labs: Abnormal Lab Results - Last 24 Hours (Table) 02/10/18 02/10/18 Range/Units 07:20 07:20 Lymphocytes # 0.8 L (1.0-4.8) k/uL Chloride 91 L (98-107) mmol/L BUN 26 H (9-20) mg/dL Calcium 8.1 L (8.4-10.2) mg/dL Total Bilirubin 1.8 H (0.2-1.3) mg/dL ALT 124 H (21-72) U/L Alkaline Phosphatase 286 H (38-126) U/L Total Protein 4.8 L (6.3-8.2) g/dL Albumin 2.6 L (3.5-5.0) g/dL Assessment and Plan Plan: 1. Severe epigastric pain secondary to cholecystitis, and possible Choledolthiasis status post ERCP and plan for cholecystectomy today . continue Flagyl, continue levofloxacin, surgical consult appreciated, laparoscopic cholecystectomy with Dr. Aguiar. 2. Cholecystitis, continue Flagyl, continue levofloxacin, possible surgical intervention today 3. Pancreatitis continue IV antibiotics, consult GI, status post ERCP, continue to monitor bilirubin, amylase and lipase, continue to monitor CMP 4. Possible Ascending cholangitis, continue Flagyl, GI consult 5. Chronic atrial fibrillation, hold eliquis at this time, continue subcu heparin 5000 units twice a dayeliquis to be resumed post surgically as soon as possible 5. Hypertension continue Cozaar 12.5 mg daily, continue metoprolol 12.5 mg twice a day, continue amlodipine 10 mg by mouth 7. Hyperlipidemia continue pravastatin 40 mg 8. Coronary artery disease status post bypass grafting 2006 TY to LAD, SVG to PDA and SVG to OM, stable, continue Cozaar, metoprolol, amlodipine, atorvastatin 9. GI prophylaxis, pepcid. 10. DVT prophylaxis, subcu heparin 5000 units twice a day 11 chronic systolic heart failure with worsening ejection fraction and increased BNP with possible mild exacerbation continue Lopressor 50 mg twice a day Discharge plan: Possible return home once medically stable
[2018-02-10] MEDS ORDERED: DILTIAZEM 5 MG/ML 5 ML VIAL IV PRN (13:44)
[2018-02-10] MEDS ORDERED: IV FLUID CONTINUATION 1,000 ML IV ONE (14:28)
[2018-02-10] MEDS ORDERED: HEPARIN SODIUM,PORCINE 5,000 UNIT/ML 1 ML VIAL SQ ONE (14:53)
[2018-02-10] MEDS ORDERED: ROCURONIUM BROMIDE 10 MG/ML 10 ML VIAL IV ONE (15:04)
[2018-02-10] MEDS ORDERED: SUCCINYLCHOLINE CHLORIDE 100 MG/5 ML SYR IV ONE (15:04)
[2018-02-10] MEDS ORDERED: GLYCOPYRROLATE 0.2 MG/ML 2 ML VIAL ONE (15:04)
[2018-02-10] MEDS ORDERED: DILTIAZEM 5 MG/ML 5 ML VIAL ONE (15:04)
[2018-02-10] MEDS ORDERED: NEOSTIGMINE 1 MG/ML 10 ML VIAL ONE (15:04)
[2018-02-10] MEDS ORDERED: MIDAZOLAM 2 MG/2 ML VIAL ONE (15:04)
[2018-02-10] MEDS ORDERED: ESMOLOL 100 MG/10 ML VIAL ONE (15:04)
[2018-02-10] MEDS ORDERED: fentaNYL (PF) 50 MCG/ML 2 ML AMP ONE (15:04)
[2018-02-10] MEDS ORDERED: LIDOCAINE 1% INJ 10MG/ML (20 ML MDV) ONE (15:04)
[2018-02-10] MEDS ORDERED: PROPOFOL 10 MG/ML 20 ML VIAL IV ONE (15:04)
[2018-02-10] MEDS ORDERED: DEXAMETHASONE SOD PHOS (MDV) 100 MG/10 ML VIAL ONE (15:04)
[2018-02-10] MEDS ORDERED: BUPIVACAIN-EPI 0.5%-1:200,000 30 ML VIAL SQ ONE (15:21)
--- NOTE | 2018-02-10 16:12 | P.OP ---
Date of Procedure: 02/10/18 Preoperative Diagnosis: Acute cholecystitis Postoperative Diagnosis: Acute cholecystitis Procedure(s) Performed: Laparoscopic cholecystectomy Anesthesia: ROLANDO Surgeon: Michael Aguiar Pathology: other (Gallbladder) Condition: stable Disposition: floor Indications for Procedure: 78-year-old male presented to the emergency department with complaints of right upper quadrant pain. Total bilirubin was also elevated. Ultrasound did show gallbladder wall thickening and gallbladder sludge. Bilirubin continued to rise during admission and the patient did have an ERCP and the filling defect was noted and cleared. The bilirubin levels then slowly have been declining. Total bilirubin today is 1.8. Plan is for laparoscopic cholecystectomy. Operative Findings: No significant adhesions Distended and thickened gallbladder Description of Procedure: The patient was brought into the operating suite and placed in supine position on the operating table. Sedation was provided by anesthesia and the patient underwent endotracheal intubation. The patient was then prepped and draped in regular sterile fashion. A left upper quadrant incision was made and the abdomen was entered under direct visualization using a Optiview 5 mm port. Pneumoperitoneum was then achieved. On immediate visualization of the abdomen it was clear that the patient did not have any adhesions from his previous abdominal aortic aneurysm repair. A infra umbilical incision was made and the abdomen was entered under direct visualization using a 11 mm trocar. 3 additional 5 mm ports were placed. One was placed in the subxiphoid region and 2 were placed in the right upper quadrant. The patient was then placed in appropriate position. The gallbladder was grasped and retracted. The critical view was achieved by dissecting and skeletonizing both the cystic duct and the cystic artery. 2 clips were placed proximally and the cystic duct and one was placed distally and the cystic duct was ligated. 2 clips were placed proximally on the cystic artery and one was placed distally and the cystic artery was ligated. Electrocautery was then used to dissect the gallbladder from the gallbladder fossa on the liver bed. Hemostasis was maintained. The gallbladder was then removed from the abdomen in an Endo Catch bag from the infraumbilical incision. Irrigation was then used in the right upper quadrant. Hemostasis was maintained. Pneumoperitoneum was released and all ports removed from the abdomen. The infra umbilical incision site fascia was closed with [id number] 0 Vicryl suture. All skin incisions were then closed with 4-0 Vicryl subcuticular suture. The patient was awakened in the operating suite and taken to postanesthesia care unit in stable condition.
[2018-02-10] MEDS: METOPROLOL TARTRATE 50 MG TAB PO SCH (20:57)
[2018-02-10] MEDS: PRAVASTATIN SODIUM 40 MG TAB PO SCH (20:58)
[2018-02-10] MEDS: LACTATED RINGERS 1,000 ML IV SCH (21:06)
[2018-02-10 21:08] VITALS: RESP 18
[2018-02-10] MEDS: HYDROcodone/APAP 5-325MG 1 EACH TAB PO PRN (23:33)
[2018-02-11] MEDS: HYDROcodone/APAP 5-325MG 1 EACH TAB PO PRN (05:06)
[2018-02-11] MEDS: metroNIDAZOLE-NS PMX 500 MG in SALINE 1 100ML.BAG IVPB SCH (05:06)
[2018-02-11 07:10] LABS: Basophils % (A) 0 %; Eosinophils % (A) 0 %; HGB 14.2 gm/dL (13.0-17.5); Lymphocytes # (A) 0.4 k/uL (1.0-4.8); Lymphocytes % (A) 3 %; MCH 27.5 pg (25.0-35.0); MCHC 31.6 g/dL (31.0-37.0); MCV 87.2 fL (80.0-100.0); Monocytes # (A) 0.4 k/uL (0-1.0); Monocytes % (A) 3 %; Neutrophils # (A) 12.9 k/uL (1.3-7.7); Neutrophils % (A) 94 %; Platelet Count 162 k/uL (150-450); RBC 5.16 m/uL (4.30-5.90); WBC 13.8 k/uL (3.8-10.6)
[2018-02-11 07:26] LABS: ALT 121 U/L (21-72); AST 62 U/L (17-59); Albumin 2.8 g/dL (3.5-5.0); Alkaline Phosphatase 275 U/L (38-126); Anion Gap 8 mmol/L; Blood Urea Nitrogen 30 mg/dL (9-20); Calcium 8.3 mg/dL (8.4-10.2); Carbon Dioxide 24 mmol/L (22-30); Chloride 107 mmol/L (98-107); Glucose 153 mg/dL (74-99); Potassium 4.6 mmol/L (3.5-5.1); Sodium 139 mmol/L (137-145); Total Bilirubin 1.5 mg/dL (0.2-1.3); Total Protein 5.2 g/dL (6.3-8.2)
--- NOTE | 2018-02-11 08:51 | P.PN ---
Subjective Progress Note Date: 02/11/18 Patient seen and examined at bedside. States pain is controlled. Denies any nausea vomiting. Tolerating clear liquid diet. Objective - Vital Signs Vital signs: Vital Signs Temp 97.6 F 02/10/18 21:07 Pulse 85 02/11/18 00:00 Resp 18 02/11/18 00:00 BP 128/70 02/10/18 21:07 Pulse Ox 94 L 02/10/18 21:07 Intake & Output 02/10/18 02/11/18 02/11/18 18:59 06:59 18:59 Intake Total 550 720 Output Total 5 Balance 545 720 Weight 70.5 kg Intake: IV 550 Oral 720 Output: Estimated Blood Loss 5 Other: Voiding Method Toilet Urinal # Voids 1 1 - Constitutional General appearance: Present: cooperative, no acute distress - Respiratory Details: No difficulty with respiration - Gastrointestinal Gastrointestinal Comment(s): Soft, appropriate tenderness, nondistended, no rebound, no guarding, incision sites are clean, dry and intact - Psychiatric Psychiatric: Present: A&O x's 3 - Labs CBC & Chem 7: 02/11/18 06:38 02/11/18 06:38 Labs: Abnormal Lab Results - Last 24 Hours (Table) 02/11/18 02/11/18 Range/Units 06:38 06:38 WBC 13.8 H (3.8-10.6) k/uL Neutrophils # 12.9 H (1.3-7.7) k/uL Lymphocytes # 0.4 L (1.0-4.8) k/uL BUN 30 H (9-20) mg/dL Glucose 153 H (74-99) mg/dL Calcium 8.3 L (8.4-10.2) mg/dL Total Bilirubin 1.5 H (0.2-1.3) mg/dL AST 62 H (17-59) U/L ALT 121 H (21-72) U/L Alkaline Phosphatase 275 H (38-126) U/L Total Protein 5.2 L (6.3-8.2) g/dL Albumin 2.8 L (3.5-5.0) g/dL Assessment and Plan (1) Cholecystitis Narrative/Plan: 78-year-old male postop day #1 from laparoscopic cholecystectomy - Pain well-controlled - Total bilirubin continues to drop, today is at 1.5 - Advance diet to soft diet - Stable for discharge from surgical standpoint - Continue medical management Current Visit: Yes Status: Acute Code(s): K81.9 - CHOLECYSTITIS, UNSPECIFIED SNOMED Code(s): 98912298
[2018-02-11] MEDS: HEPARIN SODIUM,PORCINE 5,000 UNIT/ML 1 ML VIAL SQ SCH (08:53)
[2018-02-11] MEDS: FAMOTIDINE 20 MG TAB PO SCH (08:53)
[2018-02-11] MEDS: amLODIPine 10 MG TAB PO SCH (08:53)
[2018-02-11] MEDS: POTASSIUM CHLORIDE ER 20 MEQ TAB.ER PO SCH (08:53)
[2018-02-11] MEDS: METOPROLOL TARTRATE 50 MG TAB PO SCH (08:53)
[2018-02-11 09:03] VITALS: TEMP 98.2
[2018-02-11] MEDS: DOXAZOSIN 4 MG TAB PO SCH (09:32)
[2018-02-11] MEDS: SENNOSIDES 8.6 MG TAB PO SCH (09:32)
[2018-02-11] MEDS: LOSARTAN 25 MG TAB PO SCH (09:32)
[2018-02-11] MEDS: LEVOFLOXACIN 500MG-D5W PMX 500 MG in DEXTROSE/WATER 1 100ML.BAG IVPB SCH (12:32)
--- NOTE | 2018-02-11 12:39 | P.PN ---
Subjective This is a 78-year-old male patient of Dr. Haley with a past medical history of persistent atrial fibrillation, coronary artery disease, status post CABG, hyperlipidemia, hypertension he is admitted with cholecystitis. Patient had a ultrasound outpatient that showed gallstones. Patient presented to the ER yesterday with complaints of severe epigastric abdominal pain radiating to the right shoulder and right clavicle. He was feeling nauseous at that time without any emesis. Patient was having normal bowel movements per self. Patient is resting at this time without any complaint of abdominal pain. Patient has been seen by surgery and cardiology. Will hold eliquis at this time to proceed with surgery possibly on Wednesday. Due to elevated bilirubin, continue to monitor bilirubin level and consult GI for possible ERCP on Wednesday. Patient denies any nausea or vomiting at this time he denies any constipation or diarrhea. WBC 11.6, total bilirubin 2.2, AST 142, alkaline phosphatase 186 lipase 528. 02/07: Today, total bilirubin and liver enzymes are higher. ProBNP was 8800, lipase 620. Patient underwent ERCP with biliary sphincterotomy and balloon extraction with Dr. Leggett today. No stone was seen exiting the ampulla. Pancreatic duct intentionally not cannulated. Patient was started on a clear liquid diet following. 02/08: Patient denies any abdominal pain. Chest x-ray shows no acute process. Patient has been afebrile. Pulse ox is 94% on room air. White count is improved to 11.2, potassium will be replaced. Creatinine is 1.03. Liver function tests are slightly improved from yesterday. AST 160, ALT 261 and alkaline phosphatase 344. Patient is continued on Levaquin and Flagyl. Patient is scheduled for laparoscopic cholecystectomy this afternoon. Patient denies having any chest pain, shortness of breath. No nausea or vomiting. Patient's discharge plan is to return home. 02/09: Patient denies having any abdominal pain. No nausea or vomiting. No constipation or diarrhea. He denies chest pain or shortness of breath. Surgery from yesterday was postponed due to elevated bili. Dr. Aguiar is planning on laparoscopic cholecystectomy tomorrow. Patient has had a run of V. tach and cardiology ordered Lopressor 50 mg once. Patient is continued on Levaquin and Flagyl. 02/10 patient examined bedside. He had a brief run of nonsustained V. tach this morning when patient walked to the bathroom. Heart rate improved after patient came to rest. Magnesium was 1.9 status post 1 g given. Additional dose of 50 mg of Lopressor given the increased her Lopressor to 50 twice a day. Stable for surgery per cardiology 02/11 patient examined bedside. He is doing well postsurgically. No pain reported by patient no episode of nausea or vomiting. He did have a brief episode of V. tach despite being on a kim or not. I will switch patient's antibiotic from levofloxacin to augmentin. Magnesium normal. Pending cardiology evaluation for possible discharge today Review Of Systems: no change Constitutional: No fever, no chills, no night sweats. No weight change. No weakness, fatigue or lethargy. EENT: No headache. No blurred vision or double vision, no loss of vision. Lungs: No shortness of breath, cough, no sputum production. No wheezing. Cardiovascular: No chest pain, no lower extremity edema. No palpitations. No dizziness no lightheadedness Abdominal: No abdominal pain. No nausea, vomiting. No diarrhea. No constipation. No bloody or tarry stools. No loss of appetite. Genitourinary: No dysuria, increased frequency, urgency. No urinary retention. Musculoskeletal: No myalgias. No muscle weakness, no gait dysfunction, no frequent falls. Integumentary: No wounds, no lesions. No rash or pruritus. No unusual bruising. Objective - Vital Signs Vital signs: Vital Signs Temp 98.2 F 02/11/18 08:00 Pulse 91 02/11/18 08:00 Resp 18 02/11/18 00:00 BP 128/80 02/11/18 08:00 Pulse Ox 94 L 02/11/18 08:00 Intake & Output 02/10/18 02/11/18 02/11/18 18:59 06:59 18:59 Intake Total 550 720 Output Total 5 Balance 545 720 Weight 70.5 kg Intake: IV 550 Oral 720 Output: Estimated Blood Loss 5 Other: Voiding Method Toilet Urinal # Voids 1 1 - Exam GENERAL: This is a 78 -year-old male in no apparent distress at the time of my examination. HEENT: Head is atraumatic, normocephalic. Pupils are equal, round. Sclerae anicteric. Conjunctivae are clear. Mucous membranes of the mouth are moist. Neck is supple. There is no jugular venous distention. No carotid bruit is heard. LUNGS: Clear to auscultation no wheezes, rales or rhonchi. No chest wall tenderness is noted on palpation or with deep breathing. HEART: irregularly irregular with systolic murmurs in the fifth intercostal space, rubs or gallops. S1 and S2 heard. ABDOMEN: Soft, nontender. Bowel sounds are heard. No organomegaly noted. EXTREMITIES: 2+ peripheral pulses with no evidence of peripheral edema and no calf tenderness noted. NEUROLOGIC: Patient is awake, alert and oriented x3. - Labs CBC & Chem 7: 02/11/18 06:38 02/11/18 06:38 Labs: Abnormal Lab Results - Last 24 Hours (Table) 02/11/18 02/11/18 Range/Units 06:38 06:38 WBC 13.8 H (3.8-10.6) k/uL Neutrophils # 12.9 H (1.3-7.7) k/uL Lymphocytes # 0.4 L (1.0-4.8) k/uL BUN 30 H (9-20) mg/dL Glucose 153 H (74-99) mg/dL Calcium 8.3 L (8.4-10.2) mg/dL Total Bilirubin 1.5 H (0.2-1.3) mg/dL AST 62 H (17-59) U/L ALT 121 H (21-72) U/L Alkaline Phosphatase 275 H (38-126) U/L Total Protein 5.2 L (6.3-8.2) g/dL Albumin 2.8 L (3.5-5.0) g/dL Assessment and Plan Plan: 1. Severe epigastric pain secondary to cholecystitis, and possible Choledolthiasis status post ERCP and plan for cholecystectomy today . continue Flagyl, continue levofloxacin, surgical consult appreciated, laparoscopic cholecystectomy with Dr. Aguiar. 2. Cholecystitis, niki switch antibiotcs to augmentin hold Flagyl, hold levofloxacin, s/p lap cholecystectomy 3. Pancreatitis status post ERCP, continue to monitor bilirubin, amylase and lipase, continue to monitor CMP 4. Possible Ascending cholangitis, hold Flagyl, GI consult. ERCP negative , continue augmentin for 5 day s 5. Chronic atrial fibrillation, hold eliquis at this time, continue subcu heparin 5000 units twice a dayeliquis to be resumed post surgically as soon as possible 5. Hypertension continue Cozaar 12.5 mg daily, continue metoprolol 12.5 mg twice a day, continue amlodipine 10 mg by mouth 7. Hyperlipidemia continue pravastatin 40 mg 8. Coronary artery disease status post bypass grafting 2006 TY to LAD, SVG to PDA and SVG to OM, stable, continue Cozaar, metoprolol, amlodipine, atorvastatin 9. GI prophylaxis, pepcid. 10. DVT prophylaxis, subcu heparin 5000 units twice a day 11 chronic systolic heart failure with worsening ejection fraction and increased BNP with possible mild exacerbation continue Lopressor 50 mg twice a day Discharge plan: Possible return home today once cleared by cardiology
--- NOTE | 2018-02-11 12:42 | P.DS ---
Providers Date of admission: 02/06/18 04:04 Attending physician: Chirs Pratt Consults: 02/06/18 03:29 Consult Physician Routine Consulting Provider: Michael Aguiar Consult Reason/Comments: cholecystitis Do you want consulting provider notified?: Already Contacted 02/06/18 03:30 Consult Physician Urgent Consulting Provider: Cb Easley Consult Reason/Comments: cardiac clearance Do you want consulting provider notified?: Yes, Notify in am Primary care physician: Isaiah Haley [place] [facility] Course: This is a 78-year-old male patient of Dr. Haley with a past medical history of persistent atrial fibrillation, coronary artery disease, status post CABG, hyperlipidemia, hypertension he is admitted with cholecystitis. Patient had a ultrasound outpatient that showed gallstones. Patient presented to the ER yesterday with complaints of severe epigastric abdominal pain radiating to the right shoulder and right clavicle. He was feeling nauseous at that time without any emesis. Patient was having normal bowel movements per self. Patient is resting at this time without any complaint of abdominal pain. Patient has been seen by surgery and cardiology. Will hold eliquis at this time to proceed with surgery possibly on Wednesday. Due to elevated bilirubin, continue to monitor bilirubin level and consult GI for possible ERCP on Wednesday. Patient denies any nausea or vomiting at this time he denies any constipation or diarrhea. WBC 11.6, total bilirubin 2.2, AST 142, alkaline phosphatase 186 lipase 528. 02/07: Today, total bilirubin and liver enzymes are higher. ProBNP was 8800, lipase 620. Patient underwent ERCP with biliary sphincterotomy and balloon extraction with Dr. Leggett today. No stone was seen exiting the ampulla. Pancreatic duct intentionally not cannulated. Patient was started on a clear liquid diet following. 02/08: Patient denies any abdominal pain. Chest x-ray shows no acute process. Patient has been afebrile. Pulse ox is 94% on room air. White count is improved to 11.2, potassium will be replaced. Creatinine is 1.03. Liver function tests are slightly improved from yesterday. AST 160, ALT 261 and alkaline phosphatase 344. Patient is continued on Levaquin and Flagyl. Patient is scheduled for laparoscopic cholecystectomy this afternoon. Patient denies having any chest pain, shortness of breath. No nausea or vomiting. Patient's discharge plan is to return home. 02/09: Patient denies having any abdominal pain. No nausea or vomiting. No constipation or diarrhea. He denies chest pain or shortness of breath. Surgery from yesterday was postponed due to elevated bili. Dr. Aguiar is planning on laparoscopic cholecystectomy tomorrow. Patient has had a run of V. tach and cardiology ordered Lopressor 50 mg once. Patient is continued on Levaquin and Flagyl. 02/10 patient examined bedside. He had a brief run of nonsustained V. tach this morning when patient walked to the bathroom. Heart rate improved after patient came to rest. Magnesium was 1.9 status post 1 g given. Additional dose of 50 mg of Lopressor given the increased her Lopressor to 50 twice a day. Stable for surgery per cardiology 02/11 patient examined bedside. He is doing well postsurgically. No pain reported by patient no episode of nausea or vomiting. He did have a brief episode of V. tach despite being on metoprolol I will switch patient's antibiotic from levofloxacin to augmentin tht could increase Qt interval . Magnesium normal. Pending cardiology evaluation for possible discharge today Discharge diagnoiss 1. Severe epigastric pain secondary to cholecystitis, laparoscopic cholecystectomy with Dr. Aguiar. on 02/10 2. Cholecystitis 3. Pancreatitis status post ERCP 4. Chronic atrial fibrillation, 5. Hypertension 6. Increased lFT sec to cholecystitis 7. Coronary artery disease status post bypass grafting 2006 TY to LAD, SVG to PDA and SVG to OM 8. chronic systolic heart failure cc a copy of D/c to Dae Disposition - home with self care Patient Condition at Discharge: Fair Plan - Discharge Summary New Discharge Prescriptions: New Amoxic-Pot Clav 875-125Mg [Augmentin 875-125] 1 tab PO Q12HR #10 tablet Metoprolol Tartrate [Lopressor] 50 mg PO BID #60 tab Continue Terazosin [Hytrin] 5 mg PO DAILY Pravastatin Sodium [Pravachol] 40 mg PO HS amLODIPine [Norvasc] 10 mg PO DAILY Losartan [Cozaar] 12.5 mg PO DAILY Apixaban [Eliquis] 5 mg PO BID Discontinued Metoprolol Tartrate [Lopressor] 12.5 mg PO DAILY Discharge Medication List Apixaban [Eliquis] 5 mg PO BID 07/21/17 [History] Losartan [Cozaar] 12.5 mg PO DAILY 07/21/17 [History] Pravastatin Sodium [Pravachol] 40 mg PO HS 07/21/17 [History] Terazosin [Hytrin] 5 mg PO DAILY 07/21/17 [History] amLODIPine [Norvasc] 10 mg PO DAILY 07/21/17 [History] Amoxic-Pot Clav 875-125Mg [Augmentin 875-125] 1 tab PO Q12HR #10 tablet [Rx] Metoprolol Tartrate [Lopressor] 50 mg PO BID #60 tab 02/11/18 [Rx] Follow up Appointment(s)/Referral(s): Isaiah Haley MD [Primary Care Provider] - 02/16/18 1:30 pm (With Dr. Montgomery.) Edwige Leggett MD [STAFF PHYSICIAN] - 03/21/18 1:00 pm Michael Aguiar DO [Doctor of Osteopathic Medicine] - 02/23/18 10:30 am ( Surgeon) Samantha Faye MD [STAFF PHYSICIAN] - 02/18/18 9:30 am Patient Instructions/Handouts: Low Fat Diet (DC), Laparoscopic Cholecystectomy (DC) Discharge Disposition: HOME SELF-CARE
[2018-02-11] MEDS ORDERED: AMOXIC-POT CLAV 875-125MG 1 EACH TAB PO SCH (12:45)
[2018-02-11 13:31] LABS: Appearance,Urine Clear (Clear); Bilirubin,Urine Negative (Negative); Blood,Urine Negative (Negative); Color,Urine Yellow; Glucose,Urine (UA) Negative (Negative); Ketones,Urine 1+ (Negative); Leukocyte Esterase,Urine Negative (Negative); Mucus,Urine Moderate /hpf; Nitrite,Urine Negative (Negative); PH, Urine 5.5 (5.0-8.0); Protein,Urine 1+ (Negative); Specific Gravity,Urine 1.022 (1.001-1.035); Urobilinogen,Urine <2.0 mg/dL (<2.0); WBC,Urine 1 /hpf (0-5)
[2018-02-11 14:31] VITALS: BP 126/78; PULSE 63
--- NOTE | 2018-02-11 16:35 | P.PN ---
Subjective Progress Note Date: 02/11/18 This is a pleasant 78-year-old male past medical history significant for chronic persistent atrial fibrillation on long-term anticoagulation, coronary artery disease status post bypass grafting, hypertension and dyslipidemia. He follows with Dr. Faye in the office. He presented to the hospital with symptoms of abdominal pain and has been diagnosed with acute cholecystitis and is schedule to undergo surgery today with Dr. Aguiar. Eliquis has been held since admission. Yesterday he had 3 runs of non-sustained VT while up ambulating in the bathroom along with rapid ventricular response. He was symptomatic. Beta blockers weer increased. Electrolytes and TSH obtained were normal. Brief runs of nonsustained ventricular tachycardia with longest being 9 beats. Patient is on beta octavio therapy which was increased yesterday. Ejection fraction of 30-35%. Patient is asymptomatic with these episodes of vital signs are stable. Objective - Vital Signs Vital signs: Vital Signs Temp 98.2 F 02/11/18 08:00 Pulse 63 02/11/18 12:00 Resp 18 02/11/18 00:00 BP 126/78 02/11/18 12:00 Pulse Ox 93 L 02/11/18 12:00 Intake & Output 02/10/18 02/11/18 02/11/18 18:59 06:59 18:59 Intake Total 550 720 340 Output Total 5 Balance 545 720 340 Weight 70.5 kg Intake: IV 550 100 Levofloxacin 500Mg-D5w 100 Pmx 500 mg In Dextrose/ Water 1 100ml.bag @ 100 mls/hr IVPB Q24H [facility] Rx#: [id number] Oral 720 240 Output: Estimated Blood Loss 5 Other: Voiding Method Toilet Urinal # Voids 1 1 2 - Exam PHYSICAL EXAMINATION: HEENT: Head is atraumatic, normocephalic. Pupils equal, round. Neck is supple. There is no elevated jugular venous pressure. HEART EXAMINATION: Heart sounds irregular rate and rhythm, S1 and S2 with a systolic ejection murmur at the left sternal border. CHEST EXAMINATION: Lungs are clear to auscultation and precussion. No chest wall tenderness is noted on palpation or with deep breathing. EXTREMITIES: 2+ peripheral pulses with no evidence of peripheral edema and no calf tenderness noted. NEUROLOGIC patient is awake, alert and oriented x3. . - Labs CBC & Chem 7: 02/11/18 06:38 10/12/18 06:38 Labs: Abnormal Lab Results - Last 24 Hours (Table) 02/11/18 02/11/18 02/11/18 Range/Units 06:38 06:38 12:15 WBC 13.8 H (3.8-10.6) k/uL Neutrophils # 12.9 H (1.3-7.7) k/uL Lymphocytes # 0.4 L (1.0-4.8) k/uL BUN 30 H (9-20) mg/dL Glucose 153 H (74-99) mg/dL Calcium 8.3 L (8.4-10.2) mg/dL Total Bilirubin 1.5 H (0.2-1.3) mg/dL AST 62 H (17-59) U/L ALT 121 H (21-72) U/L Alkaline Phosphatase 275 H (38-126) U/L Total Protein 5.2 L (6.3-8.2) g/dL Albumin 2.8 L (3.5-5.0) g/dL Urine Protein 1+ H (Negative) Urine Ketones 1+ H (Negative) Urine Mucus Moderate H (None) /hpf Assessment and Plan Assessment: #1 acute cholecystitis, status post cholecystectomy #2 chronic systolic heart failure #3 chronic atrial fibrillation #4 CAD status post CABG in 2006 #5 hypertension #6 dyslipidemia #7 nonsustained ventricular tachycardia Plan: Cardiology's perspective, medications reviewed and will continue the same. Continue metoprolol tartrate 50 mg by mouth twice a day. The patient will follow-up in the office with Dr. VC Faye. PARTS ROOM ASSISTANT note has been reviewed, I agree with a documented findings and plan of care. Patient was seen and examined.
== END 2018-02-11 17:30 | disposition home or self-care (01) | DRG 417 ==
LOC: EC 23:36 → 3SUR 02-06 04:04 → 6SEL 02-10 17:09
PROVIDERS: ADMIT Internal Medicine Geriatric Medicine; ATTEND Internal Medicine Geriatric Medicine
PROC: 0FC98ZZ Extirpation of Matter from Common Bile Duct, Via Natural or Artificial Opening Endoscopic (ICD-10-PCS; 2018-02-07)
PROC: 0FT44ZZ Resection of Gallbladder, Percutaneous Endoscopic Approach (ICD-10-PCS; principal; 2018-02-10 15:00)
DX: K80.42 Calculus of bile duct with acute cholecystitis without obstruction (principal); K85.90 Acute pancreatitis without necrosis or infection, unspecified; I47.2 Ventricular tachycardia; I50.22 Chronic systolic (congestive) heart failure; K56.7 Ileus, unspecified; K82.1 Hydrops of gallbladder; R78.81 Bacteremia; I11.0 Hypertensive heart disease with heart failure; I48.2 Chronic atrial fibrillation; D72.829 Elevated white blood cell count, unspecified; E87.6 Hypokalemia; E78.00 Pure hypercholesterolemia, unspecified; E78.5 Hyperlipidemia, unspecified; I25.10 Atherosclerotic heart disease of native coronary artery without angina pectoris; I25.2 Old myocardial infarction; M19.90 Unspecified osteoarthritis, unspecified site; R73.9 Hyperglycemia, unspecified; R74.8 Abnormal levels of other serum enzymes; Z79.01 Long term (current) use of anticoagulants; Z79.899 Other long term (current) drug therapy; Z96.641 Presence of right artificial hip joint; Z95.1 Presence of aortocoronary bypass graft; Z87.891 Personal history of nicotine dependence; Z86.79 Personal history of other diseases of the circulatory system; Z95.5 Presence of coronary angioplasty implant and graft; Z82.49 Family history of ischemic heart disease and other diseases of the circulatory system
CPT/HCPCS: 36415; 43262; 71046; 74018; 74177; 74330; 76700; 80048; 80053; 80074; 80076; 81001; 82150; 82550; 82553; 83690; 83735; 83880; 84443; 84484; 85025; 85610; 85730; 87040; 87077; 87186; 88304; 93005; 93306; 96365; 96375; 99285

== ENCOUNTER 2018-08-26 13:13 | Inpatient (IN) | payer MEDICARE, BC ==
--- NOTE | 2018-08-26 14:32 | XR ---
EXAMINATION TYPE: XR chest 2V DATE OF EXAM: 08/26/2018 COMPARISON: NONE HISTORY: Shortness of breath TECHNIQUE: Frontal and lateral views of the chest are obtained. FINDINGS: Scattered senescent parenchymal changes noted. Hyperinflation compatible with COPD. Patchy density left lower lobe felt to reflect pneumonia. Correlate clinically and progress studies a re recommended. Heart size is stable. Mediastinal structures are stable and grossly unremarkable. No evidence for hilar prominence. Degenerative changes dorsal spine. IMPRESSION: 1. Patchy density left lower lobe felt to reflect pneumonia. Correlate clinically and progress studie s are recommended.
[2018-08-26] MEDS ORDERED: AZITHROMYCIN 500 MG in SODIUM CHLORIDE 0.9% 250 ML IVPB STA (14:48)
[2018-08-26] MEDS ORDERED: PNEUMONIA PROTOCOL UTILIZED 1 EACH MISC PO PRN (14:48)
[2018-08-26 15:07] LABS: Basophils % (A) 0 %; Eosinophils # (A) 0.1 k/uL (0-0.7); Eosinophils % (A) 1 %; HCT 40.1 % (39.0-53.0); HGB 13.2 gm/dL (13.0-17.5); Lymphocytes # (A) 0.5 k/uL (1.0-4.8); Lymphocytes % (A) 4 %; MCHC 32.8 g/dL (31.0-37.0); MCV 82.4 fL (80.0-100.0); Mean Platelet Volume 8.8; Monocytes # (A) 0.3 k/uL (0-1.0); Monocytes % (A) 3 %; Neutrophils # (A) 10.6 k/uL (1.3-7.7); Neutrophils % (A) 91 %; Platelet Count 164 k/uL (150-450); RBC 4.87 m/uL (4.30-5.90); RDW 15.3 % (11.5-15.5); WBC 11.6 k/uL (3.8-10.6)
[2018-08-26 15:14] LABS: Calcium 8.6 mg/dL (8.4-10.2); Potassium 4.3 mmol/L (3.5-5.1)
[2018-08-26] MEDS ORDERED: NALOXONE 0.4 MG/ML 1 ML VIAL IV PRN (16:35)
--- NOTE | 2018-08-26 16:35 | ED ---
URI HPI - General Chief Complaint: Upper Respiratory Infection Stated Complaint: Coughing up blood Time Seen by Provider: 08/26/18 14:01 Source: patient, family Mode of arrival: ambulatory Limitations: no limitations - History of Present Illness Initial Comments: Patient complains of cough, congestion, not feeling well. He states his cough is very productive. He denies any chest pain or pressure. She has no lightheadedness or dizziness. He has no nausea or vomiting. He has taken no medication for the symptoms. The symptoms are getting worse for 3 days. They're much worse today. He has no palpitations. - Related Data Home Medications Medication Instructions Recorded Confirmed Apixaban [Eliquis] 5 mg PO BID 07/21/17 08/26/18 Losartan [Cozaar] 12.5 mg PO DAILY 07/21/17 08/26/18 Pravastatin Sodium [Pravachol] 40 mg PO HS 07/21/17 08/26/18 Terazosin [Hytrin] 5 mg PO DAILY 07/21/17 08/26/18 amLODIPine [Norvasc] 10 mg PO DAILY 07/21/17 08/26/18 Aspirin 81 mg PO DAILY 08/26/18 08/26/18 Atenolol [Tenormin] 50 mg PO BID 08/26/18 08/26/18 Glucosam/Brannon-Msm1/C/Lucas/Bosw 1 tab PO DAILY PRN 08/26/18 08/26/18 [[id number]-Zpdayszbqwl-TCX Tb] Allergies Allergy/AdvReac Type Severity Reaction Status Date / Time No Known Allergies Allergy Verified 08/26/18 16:09 Review of Systems ROS Statement: Those systems with pertinent positive or pertinent negative responses have been documented in the HPI. ROS Other: All systems not noted in ROS Statement are negative. Past Medical History Past Medical History: Atrial Fibrillation, Coronary Artery Disease (CAD), Hyperlipidemia, Hypertension, Myocardial Infarction ([place]), Osteoarthritis (OA) Last Myocardial Infarction Date:: unknown History of Any Multi-Drug Resistant Organisms: None Reported Past Surgical History: Coronary Bypass/CABG, Heart Catheterization With Stent Additional Past Surgical History / Comment(s): triple bypass 14 years ago, aortic aneurysm repair, TRHA Past Anesthesia/Blood Transfusion Reactions: No Reported Reaction Date of Last Stent Placement:: unknown Past Psychological History: No Psychological Hx Reported Smoking Status: Former smoker Past Alcohol Use History: Rare Past Drug Use History: None Reported - Past Family History Mother Family Medical History: No Reported History Father Family Medical History: Hypertension Additional Family Medical History / Comment(s): Patient states that his parents never went to the doctor. He thinks his father of hypertensive disease. He does not know much about his mother. Denies any significant medical history in siblings, is and has kids with no significant medical. lives of at home. General Exam Limitations: no limitations General appearance: alert, in no apparent distress Head exam: Present: atraumatic, normocephalic, normal inspection Eye exam: Present: normal appearance, PERRL, EOMI. Absent: scleral icterus, conjunctival injection, periorbital swelling ENT exam: Present: normal exam, mucous membranes moist Neck exam: Present: normal inspection. Absent: tenderness, meningismus, lymphadenopathy Respiratory exam: Present: normal lung sounds bilaterally. Absent: respiratory distress, wheezes, rales, rhonchi, stridor Cardiovascular Exam: Present: regular rate, normal rhythm, normal heart sounds. Absent: systolic murmur, diastolic murmur, rubs, gallop, clicks GI/Abdominal exam: Present: soft, normal bowel sounds. Absent: distended, tenderness, guarding, rebound, rigid Extremities exam: Present: normal inspection, full ROM, normal capillary refill. Absent: tenderness, pedal edema, joint swelling, calf tenderness Back exam: Present: normal inspection Neurological exam: Present: alert, oriented X3, CN II-XII intact Psychiatric exam: Present: normal affect, normal mood Skin exam: Present: warm, dry, intact, normal color. Absent: rash Course Vital Signs 08/26/18 08/26/18 13:27 14:48 Temperature 98.2 F Pulse Rate 80 105 H Respiratory 20 20 Rate Blood Pressure 122/78 133/85 O2 Sat by Pulse 95 94 L Oximetry Medical Decision Making - Medical Decision Making Patient presents with shortness of breath. He hasn't elevated white count. His chest x-ray shows pneumonia. I sent blood cultures. I started IV antibiotics. He will be admitted to the hospital. - Lab Data Result diagrams: 08/26/18 14:55 08/26/18 14:55 Lab Results 08/26/18 08/26/18 Range/Units 14:55 14:55 WBC 11.6 H (3.8-10.6) k/uL RBC 4.87 (4.30-5.90) m/uL Hgb 13.2 (13.0-17.5) gm/dL Hct 40.1 (39.0-53.0) % MCV 82.4 (80.0-100.0) fL MCH 27.0 (25.0-35.0) pg MCHC 32.8 (31.0-37.0) g/dL RDW 15.3 (11.5-15.5) % Plt Count 164 (150-450) k/uL Neutrophils % 91 % Lymphocytes % 4 % Monocytes % 3 % Eosinophils % 1 % Basophils % 0 % Neutrophils # 10.6 H (1.3-7.7) k/uL Lymphocytes # 0.5 L (1.0-4.8) k/uL Monocytes # 0.3 (0-1.0) k/uL Eosinophils # 0.1 (0-0.7) k/uL Basophils # 0.0 (0-0.2) k/uL Sodium 136 L (137-145) mmol/L Potassium 4.3 (3.5-5.1) mmol/L Chloride 105 (98-107) mmol/L Carbon Dioxide 25 (22-30) mmol/L Anion Gap 6 mmol/L BUN 26 H (9-20) mg/dL Creatinine 0.99 (0.66-1.25) mg/dL Est GFR (CKD-EPI)AfAm 83 (>60 ml/min/1.73 sqM) Est GFR (CKD-EPI)NonAf 72 (>60 ml/min/1.73 sqM) Glucose 97 (74-99) mg/dL Calcium 8.6 (8.4-10.2) mg/dL Disposition Clinical Impression: Pneumonia Disposition: ADMITTED IP TO THIS HOSP Condition: Fair Is patient prescribed a controlled substance at d/c from ED?: No Referrals: Isaiah Haley MD [Primary Care Provider] - 1-2 days
--- NOTE | 2018-08-26 17:28 | P.HPIM ---
History of Present Illness H&P Date: 08/26/18 Chief Complaint: Severe dyspnea and shortness of breath, left lower lobe pne umonia, mild hyp 78-year-old male who I seen in the past one of our office patient who was the hospital last time in January 2018 for abdominal pain and gallbladder attack had a created pancreatitis patient ended up going for the cholecystectomy and has done very well. Patient is known to have history of persistent A. fib, CAD, post CABG, hypertension, hyperlipidemia and post gallbladder surgery from 5 months ago who presented to the emergency department at [facility] today complaining of worsening dyspnea shortness of breath with cough productive dark phlegm along with blood for the last 4-5 days with significant dyspnea with minimum exertion associated with cold sweat low-grade temperature nausea with no vomiting palpitation and all over body sickness. Patient was seen and evaluated chest x- ray showed left lower lobe pneumonia white blood cell was mildly elevated with the above problem patient was started on IV antibiotic coverage along with updraft and O2 and admitted to the hospital with above problem. Review of Systems CONSTITUTIONAL: negative. EYES: negative. EARS, NOSE, MOUTH, THROAT and FACE: negative. RESPIRATORY: Negative. CARDIOVASCULAR: Positive A. fib, congestive heart failure and arrhythmia. GASTROINTESTINAL: Negative. GENITOURINARY: Mild incontinence and burning with urination INTEGUMENT/BREAST: Negative. HEMATOLOGIC/LYMPHATIC: Negative. MUSCULOSKELETAL: Positive edema and discoloration of the lower extremity. NEUROLOGICAL: Mild confusion, abnormal balance and gait mild amnesia. BEHAVIORAL/PSYCH: Negative. ENDOCRINE: Negative . Past Medical History Past Medical History: Atrial Fibrillation, Coronary Artery Disease (CAD), Hyperl ipidemia, Hypertension, Myocardial Infarction ([place]), Osteoarthritis (OA) Last Myocardial Infarction Date:: unknown History of Any Multi-Drug Resistant Organisms: None Reported Past Surgical History: Coronary Bypass/CABG, Heart Catheterization With Stent Additional Past Surgical History / Comment(s): triple bypass 14 years ago, aortic aneurysm repair, TRHA Past Anesthesia/Blood Transfusion Reactions: No Reported Reaction Date of Last Stent Placement:: unknown Past Psychological History: No Psychological Hx Reported Smoking Status: Former smoker Past Alcohol Use History: Rare Past Drug Use History: None Reported - Past Family History Mother Family Medical History: No Reported History Father Family Medical History: Hypertension Additional Family Medical History / Comment(s): Patient states that his parents never went to the doctor. He thinks his father of hypertensive disease. He does not know much about his mother. Denies any significant medical history in siblings, is and has kids with no significant medical. lives of at home. Medications and Allergies Home Medications Medication Instructions Recorded Confirmed Type Apixaban [Eliquis] 5 mg PO BID 07/21/17 08/26/18 History Losartan [Cozaar] 12.5 mg PO DAILY 07/21/17 08/26/18 History Pravastatin Sodium [Pravachol] 40 mg PO HS 07/21/17 08/26/18 History Terazosin [Hytrin] 5 mg PO DAILY 07/21/17 08/26/18 History amLODIPine [Norvasc] 10 mg PO DAILY 07/21/17 08/26/18 History Aspirin 81 mg PO DAILY 08/26/18 08/26/18 History Atenolol [Tenormin] 50 mg PO BID 08/26/18 08/26/18 History Glucosam/Brannon-Msm1/C/Lucas/Bosw 1 tab PO DAILY PRN 08/26/18 08/26/18 History [Tswkciutsye-Faimajpartj-CHE Tb] Allergies Allergy/AdvReac Type Severity Reaction Status Date / Time No Known Allergies Allergy Verified 08/26/18 16:09 Physical Exam Vitals: Vital Signs Temp Pulse Resp BP Pulse Ox 08/26/18 14:48 105 H 20 133/85 94 L 08/26/18 13:27 98.2 F 80 20 122/78 95 Intake and Output 08/26/18 08/26/18 08/26/18 06:59 14:59 22:59 Other: Weight 77.111 kg General Appearance: Alert,mildly overweight, cooperative, no distress, appears stated age Neck HEENT supple, no lymphadenopathy, no thyroid enlargement, no carotid bruits Lungs: Decreased breaths on bilaterally especially the left side with fine rhonchi positive mild crackles in the bases positive mild inspiratory expiratory wheezes. Chest Wall: Decrease expansion with deep inspiration no tenderness and no deformity was found on exam, no costochondral pain or discomfort. Heart: Irregular rate and rhythm, S1, S2 Positive S3 positive systolic murmur, no rub or gallop Back Symmetric, no curvature, ROM normal, no CVA tenderness Abdomen: Soft, non-tender, bowel sounds active all four quadrants, no masses, no organomegaly Extremities: Significant discoloration especially in the lower part of the leg with 1+ edema decreased pulses dorsalis pedis posterior tibial, scar tissue over both knees from previous surgery. Pulses: Positive pulses dorsalis pedis posterior tibial Skin: Skin color, texture, turgor normal, no rashes or lesions Neurologic: alert oriented 3 cranial nerves II through XII intact, no motor deficit, Positive abnormal balance and gait. Results CBC & Chem 7: 08/26/18 14:55 08/26/18 14:55 Labs: Abnormal Lab Results - Last 24 Hours (Table) 08/26/18 08/26/18 Range/Units 14:55 14:55 WBC 11.6 H (3.8-10.6) k/uL Neutrophils # 10.6 H (1.3-7.7) k/uL Lymphocytes # 0.5 L (1.0-4.8) k/uL Sodium 136 L (137-145) mmol/L BUN 26 H (9-20) mg/dL Thrombosis Risk Factor Assmnt - DVT/VTE Prophylaxis DVT/VTE Prophylaxis: Pharmacologic Prophylaxis ordered, Mechanical Prophylaxis ordered Assessment and Plan Plan: 1 severe dyspnea/ shortness of breath and hemoptysis: Combination of acute left sided pneumonia along with mild COPD continue to treat underlying disease also with the hemoptysis is might be causing slight extra hypoxia and worsening symptoms pulse ox as it is in the mid 80 continue supportive care updraft and O2. 2 severe acute left sided pneumonia with patient's current medical problem this is still can be gram-negative pneumonia especially with the hemoptysis high temperature and the hypoxia for the sputum for Gram stain and culture to be done will consult pulmonary continue IV antibiotic and gram-negative coverage for now. 3 mild COPD: We will add albuterol/ipratropium along with Pulmicort continue O2 on smaller dose of steroid will be indicated at this point. 4 A. fib with RVR: Pulse rates under control currently on metoprolol 12.5 g twice a day patient still on Eliquis 5 mg twice a day. 5 diastolic function congestive heart failure: Has been on losartan, amlodipine, metoprolol and diuretics. 6 hyperlipidemia: Remain on pravastatin 40 mg daily. 7 hypertension: Remain on amlodipine and losartan. 8 BPH: Continue patient on Hytrin 5 mg daily. 9 chronic pain syndrome: Remain on hydrocodone and as-needed basis. 10 DVT prophylaxis: Remain on anticoagulation. 11 GI prophylaxis: Patient will be on Pepcid 20 mg daily. CODE STATUS: Full code. Admit patient to inpatient status for more than 2 nights.
[2018-08-26] MEDS ORDERED: IPRATROPIUM-ALBUTEROL 3 ML NEB INHALATION PRN (17:29)
[2018-08-26] MEDS ORDERED: methylPREDNISolone SOD SUCCI 40 MG/ML 1 ML VIAL IV SCH (17:30)
[2018-08-26 19:35] VITALS: BMI 23.7
[2018-08-26] MEDS: BUDESONIDE 0.5 MG/2 ML NEBU INHALATION SCH (19:46)
[2018-08-26] MEDS: PRAVASTATIN SODIUM 40 MG TAB PO SCH (21:57)
[2018-08-26] MEDS: ATENOLOL 50 MG TAB PO SCH (21:57)
[2018-08-26] MEDS: APIXABAN 5 MG TAB PO SCH (21:57)
[2018-08-27] MEDS: methylPREDNISolone SOD SUCCI 40 MG/ML 1 ML VIAL IV SCH ×3 (04:13→20:06)
[2018-08-27 07:36] LABS: Basophils % (A) 0 %; Eosinophils % (A) 0 %; HCT 41.3 % (39.0-53.0); HGB 13.2 gm/dL (13.0-17.5); Lymphocytes # (A) 0.3 k/uL (1.0-4.8); Lymphocytes % (A) 5 %; MCH 27.1 pg (25.0-35.0); MCV 84.8 fL (80.0-100.0); Mean Platelet Volume 8.8; Monocytes # (A) 0.1 k/uL (0-1.0); Monocytes % (A) 2 %; Neutrophils # (A) 6.1 k/uL (1.3-7.7); Neutrophils % (A) 93 %; Platelet Count 162 k/uL (150-450); RBC 4.87 m/uL (4.30-5.90); RDW 15.3 % (11.5-15.5); WBC 6.6 k/uL (3.8-10.6)
[2018-08-27 08:02] VITALS: RESP 16
[2018-08-27 08:05] LABS: INR 1.1 (<1.2); Prothrombin Time 11.8 sec (9.0-12.0)
[2018-08-27] MEDS: APIXABAN 5 MG TAB PO SCH ×2 (08:07→21:12)
[2018-08-27] MEDS: LOSARTAN 25 MG TAB PO SCH (08:07)
[2018-08-27] MEDS: ASPIRIN 81 MG PO SCH (08:07)
[2018-08-27] MEDS: ATENOLOL 50 MG TAB PO SCH ×2 (08:07→21:12)
[2018-08-27] MEDS: FAMOTIDINE 20 MG TAB PO SCH (08:07)
[2018-08-27] MEDS: amLODIPine 10 MG TAB PO SCH (08:07)
[2018-08-27 08:09] LABS: ALT 24 U/L (21-72); AST 14 U/L (17-59); Albumin 2.9 g/dL (3.5-5.0); Alkaline Phosphatase 62 U/L (38-126); Anion Gap 7 mmol/L; Blood Urea Nitrogen 26 mg/dL (9-20); Calcium 8.4 mg/dL (8.4-10.2); Carbon Dioxide 26 mmol/L (22-30); Chloride 109 mmol/L (98-107); Glucose 161 mg/dL (74-99); Potassium 4.1 mmol/L (3.5-5.1); Sodium 142 mmol/L (137-145); Total Bilirubin 1.5 mg/dL (0.2-1.3); Total Protein 5.2 g/dL (6.3-8.2)
[2018-08-27] MEDS: DOXAZOSIN 4 MG TAB PO SCH (08:10)
[2018-08-27] MEDS: BUDESONIDE 0.5 MG/2 ML NEBU INHALATION SCH ×3 (08:31→20:51)
--- NOTE | 2018-08-27 09:59 | P.PN ---
Subjective Progress Note Date: 08/27/18 Principal diagnosis: Severe dyspnea and shortness of breath, left lower lobe pneumonia, mild hypoxia, and hemoptysis. 78-year-old male who I seen in the past one of our office patient who was the hospital last time in January 2018 for abdominal pain and gallbladder attack had a created pancreatitis patient ended up going for the cholecystectomy and has done very well. Patient is known to have history of persistent A. fib, CAD, post CABG, hypertension, hyperlipidemia and post gallbladder surgery from 5 months ago who presented to the emergency department at [facility] today complaining of worsening dyspnea shortness of breath with cough productive dark phlegm along with blood for the last 4-5 days with significant dyspnea with minimum exertion associated with cold sweat low-grade temperature nausea with no vomiting palpita tion and all over body sickness. Patient was seen and evaluated chest x-ray showed left lower lobe pneumonia white blood cell was mildly elevated with the above problem patient was started on IV antibiotic coverage along with updraft and O2 and admitted to the hospital with above problem. 08/27: Patient is feeling much better and slept comfortably in bed continue to have mild cough no further hemoptysis his using updraft treatment regularly and still on steroid smaller dose, has not seen pulmonary at and if he doesn't have any further bleeding might not require any bronchoscopy at this point. Objective - Vital Signs Vital signs: Vital Signs Temp 97.7 F 08/27/18 07:00 Pulse 71 08/27/18 07:00 Resp 16 08/27/18 07:00 BP 146/87 08/27/18 07:00 Pulse Ox 95 08/27/18 07:00 Intake & Output 08/26/18 08/27/18 08/27/18 18:59 06:59 18:59 Weight 77.111 kg Other: Voiding Method Toilet Urinal # Voids 2 - Exam Review of systems: CONSTITUTIONAL: negative. EYES: negative. EARS, NOSE, MOUTH, THROAT and FACE: negative. RESPIRATORY: Negative. CARDIOVASCULAR: Positive A. fib, congestive heart failure and arrhythmia. GASTROINTESTINAL: Negative. GENITOURINARY: Mild incontinence and burning with urination INTEGUMENT/BREAST: Negative. HEMATOLOGIC/LYMPHATIC: Negative. MUSCULOSKELETAL: Positive edema and discoloration of the lower extremity. NEUROLOGICAL: Mild confusion, abnormal balance and gait mild amnesia. BEHAVIORAL/PSYCH: Negative. ENDOCRINE: Negative . Physical examinations: General Appearance: Alert, cooperative, no distress, appears stated age. Patient is slightly but anxious decrease cough. Neck HEENT: Supple, no lymphadenopathy, no thyroid enlargement, no carotid bruits. Lungs: Decreased breaths in bilaterally specially the left side with fine rhonchi past mild crackles and slight wheezes. Chest Wall: Decrease expansion with deep inspiration specially in the left side no tenderness and no deformity was found on exam, no costochondral pain or discomfort. Heart: Irregular rate and rhythm, S1, S2 normal, no murmur, rub or gallop. Back: Symmetric, no curvature, ROM normal, no CVA tenderness. Abdomen: Soft, non-tender, bowel sounds active all four quadrants, no masses, no organomegaly. Extremities: Extremities normal, atraumatic, no cyanosis or edema. Pulses: 2+ and symmetric. Skin: Skin color, texture, tugor normal, no rashes or lesions. Neurologic: Alert oriented x3 cranial nerves II through XII intact, no motor deficit, no abnormal balance or gait. - Labs CBC & Chem 7: 08/27/18 07:17 08/27/18 07:17 Labs: Abnormal Lab Results - Last 24 Hours (Table) 08/26/18 08/26/18 08/27/18 Range/Units 14:55 14:55 07:17 WBC 11.6 H (3.8-10.6) k/uL Neutrophils # 10.6 H (1.3-7.7) k/uL Lymphocytes # 0.5 L 0.3 L (1.0-4.8) k/uL Sodium 136 L (137-145) mmol/L Chloride (98-107) mmol/L BUN 26 H (9-20) mg/dL Glucose (74-99) mg/dL Total Bilirubin (0.2-1.3) mg/dL AST (17-59) U/L Total Protein (6.3-8.2) g/dL Albumin (3.5-5.0) g/dL 08/27/18 Range/Units 07:17 WBC (3.8-10.6) k/uL Neutrophils # (1.3-7.7) k/uL Lymphocytes # (1.0-4.8) k/uL Sodium (137-145) mmol/L Chloride 109 H (98-107) mmol/L BUN 26 H (9-20) mg/dL Glucose 161 H (74-99) mg/dL Total Bilirubin 1.5 H (0.2-1.3) mg/dL AST 14 L (17-59) U/L Total Protein 5.2 L (6.3-8.2) g/dL Albumin 2.9 L (3.5-5.0) g/dL Assessment and Plan Plan: 1 severe dyspnea/ shortness of breath and hemoptysis: Combination of acute left sided pneumonia along with mild COPD continue to treat underlying disease also with the hemoptysis is might be causing slight extra hypoxia and worsening symptoms pulse ox as it is in the mid 80 continue supportive care updraft and O2. Patient is much better today. 2 severe acute left sided pneumonia: Still on Rocephin and azithromycin doing better. 3 mild COPD: We will add albuterol/ipratropium along with Pulmicort continue O2 on smaller dose of steroid will be indicated at this point. 4 A. fib with RVR: Pulse rates under control currently on metoprolol 12.5 g twice a day patient still on Eliquis 5 mg twice a day. 5 diastolic function congestive heart failure: Has been on losartan, amlodipine, metoprolol and diuretics. 6 hyperlipidemia: Remain on pravastatin 40 mg daily. 7 hypertension: Remain on amlodipine and losartan. 8 BPH: Continue patient on Hytrin 5 mg daily. 9 chronic pain syndrome: Remain on hydrocodone and as-needed basis. Discharge planning: Patient might be able to go home tomorrow or Wednesday if his stable.
--- NOTE | 2018-08-27 15:46 | CONS ---
CONSULTATION This is a pulmonary/critical care consult. DATE OF SERVICE: 08/27/2018 This is a very pleasant 78-year-old male who comes into the hospital complaining of not feeling well. His complaints included cough, chest congestion and phlegm production and just generally not feeling well with weakness. His cough is very productive. He is producing yellow phlegm. In addition, he notes streaks of blood in the phlegm. Denies any chest pressure or pain. Denies any fever or chills. No nausea, vomiting or diarrhea. No urinary complaints. He was evaluated in the emergency room, admitted with a diagnosis of possible pneumonia. His primary doctor is Dr. Haley. Apparently, he saw Dr. Pratt yesterday and today. Interestingly, he states that over the last 24 hours, he has improved dramatically and feels almost back to baseline. Apparently Dr. Pratt is going to plan on sending him home possibly tomorrow. HOME MEDICATIONS: Include Eliquis, losartan, pravastatin, Terazosin and amlodipine, aspirin, atenolol, and glucosamine/chondroitin. ALLERGIES: Denied. MEDICAL HISTORY: Includes chronic atrial fibrillation, CAD, hyperlipidemia, hypertension, myocardial infarction, and DJD. PAST SURGICAL HISTORY: Includes bypass grafting, heart catheterization with stent, aortic aneurysm repair and some other minor surgical procedures. SOCIAL HISTORY: Positive for previous tobacco use. Does not smoke currently. Quit many years back. Drinks alcohol rarely. He denies any illicit drug use. FAMILY HISTORY: Positive for hypertension. 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 REVIEW OF SYSTEMS: CONSTITUTIONAL: Weakness. NEUROLOGIC: Negative. HEENT negative. CARDIOVASCULAR: Negative. PULMONARY: Shortness of breath, chest tightness, wheezing, cough, chest congestion and phlegm production with mild hemoptysis. GI negative. : Negative. RHEUMATOLOGIC negative. IMMUNOLOGIC negative. ENDOCRINOLOGIC negative. DERMATOLOGIC negative. PHYSICAL EXAMINATION: VITAL SIGNS: Current vital signs are reviewed. Temperature is 97.7, heart rate 71, respiratory rate 16, blood pressure 146/87, mean 106, 2 L saturation 95%. Appears in no acute distress. HEENT examination is grossly unremarkable. Nasal O2 in place. NECK: Supple. Full range of motion. No adenopathy or thyromegaly. Neck veins are flat. CARDIOVASCULAR: Examination reveals irregular rhythm and rate. Heart rate 71. S1, S2 normal. The patient is in atrial fibrillation. No S3 or S4. No distinct murmur noted. LUNGS: Some coarse rhonchi. Breath sounds are diminished. There is prolongation. No crackles. No wheezes. ABDOMEN: Soft. Bowel sounds are heard. EXTREMITIES: Intact. No cyanosis, clubbing or edema. SKIN without rash. NEUROLOGIC: Brief but nonfocal. X-RAY: Chest x-ray shows some left lower lobe infiltrate. There is some silhouetting of the left hemidiaphragm. LABS: Reviewed. White count 6.6, down from 11.6, hemoglobin 13.2, hematocrit 41.3, platelet count 162,000. PT/INR normal. Sodium 142, potassium 4.1, chloride 109, CO2 is 26, anion gap is normal. BUN and creatinine were 26 and 0.83. Glucose 161, bilirubin 1.5, AST 14, albumin 2.9. Medications are reviewed. He is currently on all appropriate medications including Zithromax and Rocephin for antibiotics. He is also getting some breathing treatments. He is getting Solu-Medrol. ASSESSMENT: 1. Chronic obstructive pulmonary disease exacerbation complicated by left lower lobe pneumonia with hemoptysis, and mild bronchospasm. 2. History of chronic atrial fibrillation. 3. Coronary artery disease with previous bypass grafting. 4. History of hyperlipidemia. 5. History of hypertension. 6. History of myocardial infarction. 7. Degenerative joint disease. 8. Status post stent placement. 9. History of aortic aneurysm repair. PLAN: The patient is on appropriate medications. I suspect he might be discharged in next 24- 48 hours. No additional recommendations are made. No suggestions were made. He seems to be doing much better. He is 100% improved compared to when he first came in. We will continue to follow. MMODL / IJN: [id number] /
[2018-08-27] MEDS ORDERED: AZITHROMYCIN 500 MG in SODIUM CHLORIDE 0.9% 250 ML IVPB SCH ×4 (16:00)
[2018-08-27] MEDS: PRAVASTATIN SODIUM 40 MG TAB PO SCH (21:12)
[2018-08-28] MEDS: methylPREDNISolone SOD SUCCI 40 MG/ML 1 ML VIAL IV SCH (04:17)
[2018-08-28 07:22] VITALS: BP 123/83; PULSE 68; TEMP 97.6
[2018-08-28 07:52] LABS: INR 1.2 (<1.2); Prothrombin Time 12.5 sec (9.0-12.0)
[2018-08-28] MEDS: BUDESONIDE 0.5 MG/2 ML NEBU INHALATION SCH (08:23)
[2018-08-28] MEDS: APIXABAN 5 MG TAB PO SCH (09:29)
[2018-08-28] MEDS: FAMOTIDINE 20 MG TAB PO SCH (09:29)
[2018-08-28] MEDS: LOSARTAN 25 MG TAB PO SCH (09:29)
[2018-08-28] MEDS: amLODIPine 10 MG TAB PO SCH (09:30)
[2018-08-28] MEDS: ASPIRIN 81 MG PO SCH (09:30)
[2018-08-28] MEDS: ATENOLOL 50 MG TAB PO SCH (09:30)
[2018-08-28] MEDS: DOXAZOSIN 4 MG TAB PO SCH (09:45)
--- NOTE | 2018-08-28 11:16 | P.DS ---
Providers Date of admission: 08/26/18 16:36 Attending physician: Chris Pratt Consults: 08/26/18 17:30 Consult Physician Routine Consulting Provider: Solomon Mckee Reason/Comments: Hemoptysis Do you want consulting provider notified?: Yes Primary care physician: Isaiah Haley Hospital Course: Principal diagnosis: Severe dyspnea and shortness of breath, left lower lobe pneumonia, mild hypoxia, and hemoptysis. History: 78-year-old male who I seen in the past one of our office patient who was the hospital last time in January 2018 for abdominal pain and gallbladder attack had a created pancreatitis patient ended up going for the cholecystectomy and has done very well. Patient is known to have history of persistent A. fib, CAD, post CABG, hypertension, hyperlipidemia and post gallbladder surgery from 5 months ago who presented to the emergency department at [facility] today complaining of worsening dyspnea shortness of breath with cough productive dark phlegm along with blood for the last 4-5 days with significant dyspnea with minimum exertion associated with cold sweat low-grade temperature nausea with no vomiting palpitation and all over body sickness. Patient was seen and evaluated chest x- ray showed left lower lobe pneumonia white blood cell was mildly elevated with the above problem patient was started on IV antibiotic coverage along with updraft and O2 and admitted to the hospital with above problem. 08/27: Patient is feeling much better and slept comfortably in bed continue to have mild cough no further hemoptysis his using updraft treatment regularly and still on steroid smaller dose, has not seen pulmonary at and if he doesn't have any further bleeding might not require any bronchoscopy at this point. 08/28: Patient is feeling much better had improved significantly no dyspnea and shortness of breath no wheezes no hemoptysis was cleared by pulmonary for discharge on oral antibiotic and taper of steroids for the next few days. Review of systems: CONSTITUTIONAL: negative. EYES: negative. EARS, NOSE, MOUTH, THROAT and FACE: negative. RESPIRATORY: Negative. CARDIOVASCULAR: Positive A. fib, congestive heart failure and arrhythmia. GASTROINTESTINAL: Negative. GENITOURINARY: Mild incontinence and burning with urination INTEGUMENT/BREAST: Negative. HEMATOLOGIC/LYMPHATIC: Negative. MUSCULOSKELETAL: Positive edema and discoloration of the lower extremity. NEUROLOGICAL: Mild confusion, abnormal balance and gait mild amnesia. BEHAVIORAL/PSYCH: Negative. ENDOCRINE: Negative . Physical examinations: General Appearance: Alert, cooperative, no distress, appears stated age. Patient is slightly but anxious decrease cough. Neck HEENT: Supple, no lymphadenopathy, no thyroid enlargement, no carotid bruits. Lungs: Decreased breaths in bilaterally specially the left side with fine rhonchi past mild crackles and slight wheezes. Chest Wall: Decrease expansion with deep inspiration specially in the left side no tenderness and no deformity was found on exam, no costochondral pain or discomfort. Heart: Irregular rate and rhythm, S1, S2 normal, no murmur, rub or gallop. Back: Symmetric, no curvature, ROM normal, no CVA tenderness. Abdomen: Soft, non-tender, bowel sounds active all four quadrants, no masses, no organomegaly. Extremities: Extremities normal, atraumatic, no cyanosis or edema. Pulses: 2+ and symmetric. Skin: Skin color, texture, tugor normal, no rashes or lesions. Neurologic: Alert oriented x3 cranial nerves II through XII intact, no motor deficit, no abnormal balance or gait. Assessment and Plan Plan: 1 severe dyspnea/ shortness of breath and hemoptysis: Combination of acute left sided pneumonia along with mild COPD continue to treat underlying disease also w ith the hemoptysis is might be causing slight extra hypoxia and worsening symptoms pulse ox as it is in the mid 80 continue supportive care updraft and O2. Patient is much better today. 2 severe acute left sided pneumonia: Still on Rocephin and azithromycin doing better. 3 mild COPD: We will add albuterol/ipratropium along with Pulmicort continue O2 on smaller dose of steroid will be indicated at this point. 4 A. fib with RVR: Pulse rates under control currently on metoprolol 12.5 g twice a day patient still on Eliquis 5 mg twice a day. 5 diastolic function congestive heart failure: Has been on losartan, amlodipine, metoprolol and diuretics. 6 hyperlipidemia: Remain on pravastatin 40 mg daily. 7 hypertension: Remain on amlodipine and losartan. 8 BPH: Continue patient on Hytrin 5 mg daily. Patient has done very well switch all his meds to oral patient is able to tolerate inhaler no need for any further nebulizer no further bloody sputum at this point and was cleared by pulmonary will be discharging patient home follow- up as an outpatient. Patient Condition at Discharge: Fair Plan - Discharge Summary New Discharge Prescriptions: New Azithromycin 250 mg PO DAILY #5 tablet Famotidine [Pepcid] 20 mg PO DAILY tab predniSONE 10 mg PO DIRECTED #20 tab Albuterol Inhaler [Ventolin Hfa Inhaler] 2 puff INHALATION RT-Q6H PRN #1 inhaler PRN Reason: Shortness Of Breath Or Wheezing Continue Terazosin [Hytrin] 5 mg PO DAILY Pravastatin Sodium [Pravachol] 40 mg PO HS amLODIPine [Norvasc] 10 mg PO DAILY Losartan [Cozaar] 12.5 mg PO DAILY Apixaban [Eliquis] 5 mg PO BID Atenolol [Tenormin] 50 mg PO BID Aspirin 81 mg PO DAILY Glucosam/Brannon-Msm1/C/Lucas/Bosw [Rnhjpwjozmn-Muehzuwddau-AWK Tb] 1 tab PO DAILY PRN PRN Reason: Pain Discharge Medication List Apixaban [Eliquis] 5 mg PO BID 07/21/17 [History] Losartan [Cozaar] 12.5 mg PO DAILY 07/21/17 [History] Pravastatin Sodium [Pravachol] 40 mg PO HS 07/21/17 [History] Terazosin [Hytrin] 5 mg PO DAILY 07/21/17 [History] amLODIPine [Norvasc] 10 mg PO DAILY 07/21/17 [History] Aspirin 81 mg PO DAILY 08/26/18 [History] Atenolol [Tenormin] 50 mg PO BID 08/26/18 [History] Glucosam/Brannon-Msm1/C/Lucas/Bosw [Oqxktdjvbbo-Mtrqgkyzduj-LBP Tb] 1 tab PO DAILY PRN 08/26/18 [History] Albuterol Inhaler [Ventolin Hfa Inhaler] 2 puff INHALATION RT-Q6H PRN #1 inhaler 08/28/18 [Rx] Azithromycin 250 mg PO DAILY #5 tablet 08/28/18 [Rx] Famotidine [Pepcid] 20 mg PO DAILY tab 08/28/18 [Rx] predniSONE 10 mg PO DIRECTED #20 tab 08/28/18 [Rx] Follow up Appointment(s)/Referral(s): Isaiah Haley MD [Primary Care Provider] - 1-2 days Discharge Disposition: HOME SELF-CARE
--- NOTE | 2018-08-28 12:05 | P.PN ---
Subjective Progress Note Date: 08/28/18 Principal diagnosis: Chronic objective pulmonary disease exacerbation, potato by left lower lobe pneumonia with hemoptysis and mild bronchospasm On 08/20/2018 patient seen in follow-up on medical surgical floor. He is awake and alert, in no acute distress, he continues to improve, he is on room air, no further episodes of hemoptysis, no cough or congestion, vital signs are stable, no fever or chills, room air pulse ox is 94%, with culture showed no growth, today's labs have been reviewed, INR 1.2, no other labs were done, clinically patient is stable, he had a very rapid improvement in response to inpatient treatment, antibiotics, nebulized treatments, was treated with a combination of Zithromax and Rocephin, nebulized on could've his, and IV steroids. Objective - Vital Signs Vital signs: Vital Signs Temp 97.6 F 08/28/18 07:00 Pulse 68 08/28/18 07:00 Resp 16 08/28/18 07:00 BP 123/83 08/28/18 07:00 Pulse Ox 94 L 08/28/18 07:00 Intake & Output 08/27/18 08/28/18 08/28/18 18:59 06:59 18:59 Intake Total 250 Balance 250 Intake: Oral 250 Other: Voiding Method Toilet Toilet Toilet Urinal Urinal Urinal # Voids 4 # Bowel Movements 1 - Exam GENERAL EXAM: Alert and pleasant, 78-year-old white male, on room air comfortable in no apparent distress. HEAD: Normocephalic/atraumatic. EYES: Normal reaction of pupils, equal size. Conjunctiva pink, sclera white. NOSE: Clear with pink turbinates. THROAT: No erythema or exudates. NECK: No masses, no JVD, no thyroid enlargement, no adenopathy. CHEST: No chest wall deformity. Symmetrical expansion. LUNGS: Equal air entry with no crackles, wheeze, rhonchi or dullness. CVS: Regular rate and rhythm, normal S1 and S2, no gallops, no murmurs, no rubs ABDOMEN: Soft, nontender. No hepatosplenomegaly, normal bowel sounds, no guarding or rigidity. EXTREMITIES: No clubbing, no edema, no cyanosis, 2+ pulses and upper and lower extremities. MUSCULOSKELETAL: Muscle strength and tone normal. SPINE: No scoliosis or deformity SKIN: No rashes CENTRAL NERVOUS SYSTEM: Alert and oriented -3. No focal deficits, tone is normal in all 4 extremities. PSYCHIATRIC: Alert and oriented -3. Appropriate affect. Intact judgment and insight. - Labs CBC & Chem 7: 08/27/18 07:17 08/27/18 07:17 Labs: Abnormal Lab Results - Last 24 Hours (Table) 08/28/18 Range/Units 07:07 PT 12.5 H (9.0-12.0) sec INR 1.2 H (<1.2) Microbiology - Last 24 Hours (Table) 08/26/18 15:18 Blood Culture - Preliminary Blood No Growth after 24 hours 08/26/18 14:55 Blood Culture - Preliminary Blood No Growth after 24 hours Assessment and Plan Plan: Assessment: #1. Acute exacerbation of chronic obstructive pulmonary disease comfortably left lower lobe pneumonia with hemoptysis and mild bronchospasm, community acquired #2. History of chronic atrial fibrillation on chronic anticoagulation with Eliq uis #3. Coronary artery disease with previous bypass grafting #4. History of hyperlipidemia #5. History of hypertension #6. History of myocardial infarction #7. Degenerative joint disease #8. Previous history of coronary artery stenting #9. History of aortic aneurysm repair Plan: Patient is stable for discharge home from pulmonary perspective, he is afebrile, his on room air, no chest congestion, no hemoptysis, no fever or chills, no chest pain. Follow-up with Dr. Mckee in the office in 7-10 days I performed a history & physical examination of the patient and discussed their management with my nurse practitioner, Mariam Oh. I reviewed the nurse practitioner's note and agree with the documented findings and plan of care. Lung sounds are positive for diffuse wheezes throughout the lung zapata. The findings and the impression was discussed with the patient. I attest to the documentation by the nurse practitioner.
--- NOTE | 2018-08-29 12:18 | CDI ---
Documentation Clarification Form Date: 08/29/2018 12:02:29 PM From: Amanda Barragan Phone: If you have a question, please contact Rebeca Villanueva [employer] Associate at [phone] between 8am and 5pm. Admit Date: 08/26/2018 4:36:00 PM Patient Name: Dago Lyman Visit Number: [id number] Discharge Date: 08/28/2018 12:12:00 PM ATTENTION: The Clinical Documentation Specialists (CDI) and [facility] Coding Staff appreciate your assistance in clarifying documentation. Please respond to the clarification below the line at the bottom and electronically sign. The CDI & [facility] Coding staff will review the response and follow-up if needed. Please note: Queries are made part of the Legal Health Record. If you have any questions, please contact the author of this message via ITS. Dr. Chris Pratt H & P documents severe acute left sided pneumonia with patient's current medical problem this could be a gram negative pneumonia. Please clarify if patient had gram negative pneumonia or was this ruled out. History/Risk Factors: hemoptysis, hypoxia Vital signs: 98.2 80-105 bpm 20 122/78 day of admit down to 92% on RA WBC/Left shift: 11.6 X-ray: Patchy density LLL, pneumonia Treatment: IV antibiotics with gram negative coverage In order to capture the severity of condition, please clarify if the condition signifies and you are treating for: Gram Negative Pneumonia ruled in Gram Negative Pneumonia ruled out Other, please specify Unable to determine Possible gram negative pneumonia MTDD
== END 2018-08-28 12:12 | disposition home or self-care (01) | DRG 178 ==
LOC: EC 13:13 → 4SSUR 16:36
PROVIDERS: ADMIT Internal Medicine Geriatric Medicine; ATTEND Internal Medicine Geriatric Medicine
DX: J15.6 Pneumonia due to other Gram-negative bacteria (principal); J44.0 Chronic obstructive pulmonary disease with (acute) lower respiratory infection; J44.1 Chronic obstructive pulmonary disease with (acute) exacerbation; I48.1 Persistent atrial fibrillation; I50.30 Unspecified diastolic (congestive) heart failure; R04.2 Hemoptysis; Z87.891 Personal history of nicotine dependence; E78.5 Hyperlipidemia, unspecified; I11.0 Hypertensive heart disease with heart failure; I25.10 Atherosclerotic heart disease of native coronary artery without angina pectoris; I25.2 Old myocardial infarction; I48.2 Chronic atrial fibrillation; M19.90 Unspecified osteoarthritis, unspecified site; N40.0 Benign prostatic hyperplasia without lower urinary tract symptoms; R09.02 Hypoxemia; Z79.01 Long term (current) use of anticoagulants; Z79.82 Long term (current) use of aspirin; Z79.899 Other long term (current) drug therapy; Z82.49 Family history of ischemic heart disease and other diseases of the circulatory system; Z86.79 Personal history of other diseases of the circulatory system; Z95.1 Presence of aortocoronary bypass graft; Z95.5 Presence of coronary angioplasty implant and graft; G89.4 Chronic pain syndrome; Z90.49 Acquired absence of other specified parts of digestive tract
CPT/HCPCS: 36415; 71046; 80048; 80053; 85025; 85610; 87040; 87449; 96365; 96366; 96367; 99284

== ENCOUNTER → 2019-12-22 | Outpatient (CLI) | payer MEDICARE, BC ==
[2019-12-22 16:16] LABS: Chol/HDL Ratio 3.28; LDL Cholesterol,Calculated 64.8 mg/dL (0.0-131.0); VLDL Calculation 17.2 mg/dL (5.00-40.00)
== END | disposition home or self-care (01) ==
LOC: LABWHC1 09:02
PROVIDERS: ATTEND Internal Medicine Cardiovascular Disease
DX: E78.2 Mixed hyperlipidemia (principal)
CPT/HCPCS: 36415; 80061; 84450; 84460

== ENCOUNTER 2020-05-11 23:01 | Inpatient (IN) | payer MEDICARE, BC ==
[2020-05-11] MEDS ORDERED: methylPREDNISolone SOD SUCCI 125 MG/2 ML VIAL IV STA (23:19)
[2020-05-11] MEDS ORDERED: IPRATROPIUM-ALBUTEROL 3 ML NEB INHALATION STA (23:19)
[2020-05-11] MEDS ORDERED: SODIUM CHLORIDE 0.9% 1,000 ML IV STA (23:21)
[2020-05-11] MEDS ORDERED: PANTOPRAZOLE 40 MG/10 ML VIAL IVP STA (23:21)
[2020-05-11] MEDS ORDERED: ONDANSETRON 4 MG/2 ML VIAL IVP STA (23:21)
--- NOTE | 2020-05-11 23:46 | ED ---
Abdominal Pain HPI - General Chief Complaint: Abdominal Pain Stated Complaint: nausea, abdominal pain, weakness Time Seen by Provider: 05/11/20 23:06 Source: patient, RN notes reviewed, old records reviewed Mode of arrival: wheelchair - History of Present Illness Initial Comments: This is an 80-year-old male DF for evaluation possessive for evaluation of severe abdominal pain inability for 3 days. Patient states he's had a hernia in the past. No prior surgical issues. No recent travel history sick contacts mild nausea no vomiting. Patient had no bowel movement for the past 3 days but he did have urination today MD Complaint: abdominal pain, other (Left abdominal pain) -: days(s) Location: L flank Radiation: L flank Migration to: suprapubic Severity: moderate Severity scale (1-10): 7 Quality: stabbing, aching Consistency: constant Improves With: nothing Worsens With: nothing Associated Symptoms: nausea - Related Data Home Medications Medication Instructions Recorded Confirmed Apixaban [Eliquis] 5 mg PO BID 07/21/17 08/26/18 Losartan [Cozaar] 12.5 mg PO DAILY 07/21/17 08/26/18 Pravastatin Sodium [Pravachol] 40 mg PO HS 07/21/17 08/26/18 Terazosin [Hytrin] 5 mg PO DAILY 07/21/17 08/26/18 amLODIPine [Norvasc] 10 mg PO DAILY 07/21/17 08/26/18 Aspirin 81 mg PO DAILY 08/26/18 08/26/18 Atenolol [Tenormin] 50 mg PO BID 08/26/18 08/26/18 Glucosam/Brannon-Msm1/C/Lucas/Bosw 1 tab PO DAILY PRN 08/26/18 08/26/18 [Wxdbolnizre-Jczlnrirolp-RGO Tb] Previous Rx's Medication Instructions Recorded Albuterol Inhaler (Mhu) [Ventolin 2 puff INHALATION RT-Q6H PRN #1 08/28/18 Hfa Inhaler] inhaler Azithromycin 250 mg PO DAILY #5 tablet 08/28/18 Famotidine [Pepcid] 20 mg PO DAILY tab 08/28/18 predniSONE 10 mg PO DIRECTED #20 tab 08/28/18 Allergies Allergy/AdvReac Type Severity Reaction Status Date / Time No Known Allergies Allergy Verified 05/11/20 23:12 Review of Systems ROS Statement: Those systems with pertinent positive or pertinent negative responses have been documented in the HPI. ROS Other: All systems not noted in ROS Statement are negative. Past Medical History Past Medical History: Atrial Fibrillation, Coronary Artery Disease (CAD), Hyperlipidemia, Hypertension, Myocardial Infarction ([place]), Osteoarthritis (OA) Last Myocardial Infarction Date:: unknown History of Any Multi-Drug Resistant Organisms: None Reported Past Surgical History: Coronary Bypass/CABG, Heart Catheterization With Stent Additional Past Surgical History / Comment(s): triple bypass 14 years ago, aortic aneurysm repair, TRHA Past Anesthesia/Blood Transfusion Reactions: No Reported Reaction Date of Last Stent Placement:: unknown Past Psychological History: No Psychological Hx Reported Smoking Status: Never smoker Past Alcohol Use History: Rare Past Drug Use History: None Reported - Past Family History Mother Family Medical History: No Reported History Father Family Medical History: Hypertension Additional Family Medical History / Comment(s): Patient states that his parents never went to the doctor. He thinks his father of hypertensive disease. He does not know much about his mother. Denies any significant medical history in siblings, is and has kids with no significant medical. lives of at home. General Exam General appearance: alert, in no apparent distress Head exam: Present: atraumatic, normocephalic, normal inspection Eye exam: Present: normal appearance, PERRL, EOMI. Absent: scleral icterus, conjunctival injection, periorbital swelling ENT exam: Present: normal exam, mucous membranes moist Neck exam: Present: normal inspection. Absent: tenderness, meningismus, lymphadenopathy Respiratory exam: Present: normal lung sounds bilaterally. Absent: respiratory distress, wheezes, rales, rhonchi, stridor Cardiovascular Exam: Present: regular rate, normal rhythm, normal heart sounds. Absent: systolic murmur, diastolic murmur, rubs, gallop, clicks GI/Abdominal exam: Present: soft, normal bowel sounds, hernia (Left inguinal hernia with inability to reduce). Absent: distended, tenderness, guarding, rebound, rigid Extremities exam: Present: normal inspection, full ROM, normal capillary refill. Absent: tenderness, pedal edema, joint swelling, calf tenderness Back exam: Present: normal inspection Neurological exam: Present: alert, oriented X3, CN II-XII intact Psychiatric exam: Present: normal affect, normal mood Skin exam: Present: warm, dry, intact, normal color. Absent: rash Course Vital Signs 05/11/20 23:06 Temperature 98.6 F Pulse Rate 89 Respiratory 19 Rate Blood Pressure 130/77 O2 Sat by Pulse 93 L Oximetry - Reevaluation(s) Reevaluation #1: 05/12/20 01:04 Medical records reviewed Reevaluation #2: 05/12/20 01:04 Patient does have pain control Reevaluation #3: 05/12/20 01:04 Patient informed results and questions have been answered - Consultations Consultation #1: Spoke with Dr. Aguiar who will admit this patient Medical Decision Making - Medical Decision Making 80 male DF for evaluation of abdominal pain with persistent nausea vomiting. Patient has left incarcerated inguinal hernia unable to reduce here in the ER. Patient will be admitted for pain control and surgical consultation evaluation - Lab Data Result diagrams: 05/11/20 23:42 05/11/20 23:42 Lab Results 05/11/20 05/11/20 05/11/20 Range/Units 23:42 23:42 23:42 WBC 17.2 H (3.8-10.6) k/uL RBC 6.22 H (4.30-5.90) m/uL Hgb 18.1 H (13.0-17.5) gm/dL Hct 52.6 (39.0-53.0) % MCV 84.5 (80.0-100.0) fL MCH 29.1 (25.0-35.0) pg MCHC 34.4 (31.0-37.0) g/dL RDW 13.1 (11.5-15.5) % Plt Count 197 (150-450) k/uL MPV 8.4 Neutrophils % 88 % Lymphocytes % 4 % Monocytes % 7 % Eosinophils % 1 % Basophils % 0 % Neutrophils # 15.0 H (1.3-7.7) k/uL Lymphocytes # 0.7 L (1.0-4.8) k/uL Monocytes # 1.2 H (0-1.0) k/uL Eosinophils # 0.1 (0-0.7) k/uL Basophils # 0.1 (0-0.2) k/uL Sodium 137 (137-145) mmol/L Potassium 3.9 (3.5-5.1) mmol/L Chloride 99 (98-107) mmol/L Carbon Dioxide 27 (22-30) mmol/L Anion Gap 11 mmol/L BUN 39 H (9-20) mg/dL Creatinine 1.07 (0.66-1.25) mg/dL Est GFR (CKD-EPI)AfAm 76 (>60 ml/min/1.73 sqM) Est GFR (CKD-EPI)NonAf 65 (>60 ml/min/1.73 sqM) Glucose 155 H (74-99) mg/dL Plasma Lactic Acid Minh 1.7 (0.7-2.0) mmol/L Calcium 9.8 (8.4-10.2) mg/dL Total Bilirubin 1.9 H (0.2-1.3) mg/dL AST 27 (17-59) U/L ALT 17 (4-49) U/L Alkaline Phosphatase 88 (38-126) U/L Creatine Kinase 134 (55-170) U/L Troponin I (0.000-0.034) ng/mL Total Protein 7.1 (6.3-8.2) g/dL Albumin 4.4 (3.5-5.0) g/dL Amylase 42 (30-110) U/L Lipase 32 (23-300) U/L Urine Color Urine Appearance (Clear) Urine pH (5.0-8.0) Ur Specific [place] (1.001-1.035) Urine Protein (Negative) Urine Glucose (UA) (Negative) Urine Ketones (Negative) Urine Blood (Negative) Urine Nitrite (Negative) Urine Bilirubin (Negative) Urine Urobilinogen (<2.0) mg/dL Ur Leukocyte Esterase (Negative) Urine RBC (0-5) /hpf Urine WBC (0-5) /hpf Ur Squamous Epith Cells (0-4) /hpf Urine Bacteria (None) /hpf Hyaline Casts (0-2) /lpf Urine Mucus (None) /hpf 05/11/20 05/12/20 Range/Units 23:42 00:35 WBC (3.8-10.6) k/uL RBC (4.30-5.90) m/uL Hgb (13.0-17.5) gm/dL Hct (39.0-53.0) % MCV (80.0-100.0) fL MCH (25.0-35.0) pg MCHC (31.0-37.0) g/dL RDW (11.5-15.5) % Plt Count (150-450) k/uL MPV Neutrophils % % Lymphocytes % % Monocytes % % Eosinophils % % Basophils % % Neutrophils # (1.3-7.7) k/uL Lymphocytes # (1.0-4.8) k/uL Monocytes # (0-1.0) k/uL Eosinophils # (0-0.7) k/uL Basophils # (0-0.2) k/uL Sodium (137-145) mmol/L Potassium (3.5-5.1) mmol/L Chloride (98-107) mmol/L Carbon Dioxide (22-30) mmol/L Anion Gap mmol/L BUN (9-20) mg/dL Creatinine (0.66-1.25) mg/dL Est GFR (CKD-EPI)AfAm (>60 ml/min/1.73 sqM) Est GFR (CKD-EPI)NonAf (>60 ml/min/1.73 sqM) Glucose (74-99) mg/dL Plasma Lactic Acid Minh (0.7-2.0) mmol/L Calcium (8.4-10.2) mg/dL Total Bilirubin (0.2-1.3) mg/dL AST (17-59) U/L ALT (4-49) U/L Alkaline Phosphatase (38-126) U/L Creatine Kinase (55-170) U/L Troponin I <0.012 (0.000-0.034) ng/mL Total Protein (6.3-8.2) g/dL Albumin (3.5-5.0) g/dL Amylase (30-110) U/L Lipase (23-300) U/L Urine Color Yellow Urine Appearance Clear (Clear) Urine pH 5.5 (5.0-8.0) Ur Specific [place] 1.040 H (1.001-1.035) Urine Protein 2+ H (Negative) Urine Glucose (UA) Negative (Negative) Urine Ketones Negative (Negative) Urine Blood Trace H (Negative) Urine Nitrite Negative (Negative) Urine Bilirubin Negative (Negative) Urine Urobilinogen <2.0 (<2.0) mg/dL Ur Leukocyte Esterase Negative (Negative) Urine RBC 2 (0-5) /hpf Urine WBC 1 (0-5) /hpf Ur Squamous Epith Cells <1 (0-4) /hpf Urine Bacteria Rare H (None) /hpf Hyaline Casts 7 H (0-2) /lpf Urine Mucus Occasional H (None) /hpf - EKG Data -: EKG Interpreted by Me (EKG is A. fib 70 QRS 106 QTc 462) - Radiology Data Radiology results: report reviewed (CT head and pelvis shows a incarcerated ingu inal hernia with small bowel obstruction), image reviewed Disposition Clinical Impression: SBO (small bowel obstruction), Incarcerated inguinal hernia, unilateral Disposition: ADMITTED IP TO THIS HOSP Condition: Fair Is patient prescribed a controlled substance at d/c from ED?: No Referrals: Isaiah Hlaey MD [Primary Care Provider] - 1-2 days
[2020-05-11 23:55] LABS: Basophils # (A) 0.1 k/uL (0-0.2); Basophils % (A) 0 %; Eosinophils # (A) 0.1 k/uL (0-0.7); Eosinophils % (A) 1 %; HCT 52.6 % (39.0-53.0); HGB 18.1 gm/dL (13.0-17.5); Lymphocytes # (A) 0.7 k/uL (1.0-4.8); Lymphocytes % (A) 4 %; MCH 29.1 pg (25.0-35.0); MCHC 34.4 g/dL (31.0-37.0); MCV 84.5 fL (80.0-100.0); Mean Platelet Volume 8.4; Monocytes # (A) 1.2 k/uL (0-1.0); Monocytes % (A) 7 %; Neutrophils % (A) 88 %; Platelet Count 197 k/uL (150-450); RBC 6.22 m/uL (4.30-5.90); RDW 13.1 % (11.5-15.5); WBC 17.2 k/uL (3.8-10.6)
[2020-05-12 00:03] LABS: Albumin 4.4 g/dL (3.5-5.0); Calcium 9.8 mg/dL (8.4-10.2); Potassium 3.9 mmol/L (3.5-5.1); Total Bilirubin 1.9 mg/dL (0.2-1.3); Total Protein 7.1 g/dL (6.3-8.2)
[2020-05-12 00:51] LABS: Appearance,Urine Clear (Clear); Bacteria,Urine Rare /hpf; Bilirubin,Urine Negative (Negative); Blood,Urine Trace (Negative); Color,Urine Yellow; Glucose,Urine (UA) Negative (Negative); Hyaline Casts,Urine 7 /lpf (0-2); Ketones,Urine Negative (Negative); Leukocyte Esterase,Urine Negative (Negative); Mucus,Urine Occasional /hpf; Nitrite,Urine Negative (Negative); PH, Urine 5.5 (5.0-8.0); Protein,Urine 2+ (Negative); RBC,Urine 2 /hpf (0-5); Squamous Epithelial Cell,Urine <1 /hpf (0-4); Urobilinogen,Urine <2.0 mg/dL (<2.0); WBC,Urine 1 /hpf (0-5)
--- NOTE | 2020-05-12 00:52 | CT ---
EXAM: CT Abdomen and Pelvis With Intravenous Contrast CLINICAL HISTORY: Abdominal pain. TECHNIQUE: Axial computed tomography images of the abdomen and pelvis with intravenous contrast. CTDI is 22.07 mGy and DLP is 967.3 mGy-cm. This CT exam was performed using one or more of the following dose reduction techniques: automated exposure control, adjustment of the mA and/or kV according to patient size, and/or use of iterative reconstruction technique. COMPARISON: 02/04/2018. FINDINGS: Lung bases: Presumed subsegmental atelectasis at the lung bases. Heart: Cardiomegaly. Mediastinum: Moderate hiatal hernia. Possible distal esophagitis. ABDOMEN: Liver: Diffuse fatty liver. Gallbladder and bile ducts: Status post cholecystectomy. No ductal dilation. Pancreas: See below. Spleen: The spleen enhances heterogeneously most likely on the basis of phase of injection. Adrenals: The adrenal glands, the head, body, tail of the pancreas are unremarkable. Kidneys and ureters: Thinning of the left renal cortex. Both kidneys are shown to excrete contrast bilaterally without hydronephrosis per Nonspecific stranding about the perinephric spaces. 0.3 cm nonobstructing calculus mid to lower pole region of the right kidney. Simple left renal cyst. No follow-up is advised. Stomach and bowel: Dilated fluid-filled loops of small bowel are noted extending to the right lower quadrant compatible with distal small bowel obstruction. Surgical consultation is advised. Moderate quantity of stool throughout the colon. There is a 6.5 x 5.7 cm left inguinal hernia containing dilated fluid-filled loops of small bowel which appeared to be the cause of the small bowel obstruction. Incarceration and strangulation of this hernia should be considered. No mucosal thickening. PELVIS: Appendix: The appendix is seen on coronal image 68 and is unremarkable. Bladder: Unremarkable. No mass. Reproductive: Mild enlargement of the prostate gland. ABDOMEN and PELVIS: Intraperitoneal space: Unremarkable. No free air. No significant fluid collection. Bones/joints: Sternotomy wires are noted in place in the lower sternum. Moderate degenerative disc disease of the visualized spine. Moderate osteoarthritic changes about the sacroiliac joints. Total right hip prosthesis is noted in place with associated artifact which limits evaluation. No spondylolysis or spondylolisthesis. The sacrum and coccyx are unremarkable. No acute fracture. No dislocation. Soft tissues: 4.3 cm right inguinal hernia containing fluid and mesenteric fat. Vasculature: Atherosclerotic disease of the abdominal aorta. Post stenotic dilatation of the celiac artery is noted, similar to that noted on the previous study. Good flow within the celiac, SMA, the renal arteries, and RACHEAL. Significant atherosclerotic disease of the branches of the abdominal aorta are noted. Abdominal aortic stent graft is noted in place. Infrarenal abdominal aorta measures 4 x 4.1 cm. Lymph nodes: Unremarkable. No enlarged lymph nodes. Other findings: Multilevel vacuum disks. No follow-up is necessary. IMPRESSION: 1. Strangulated or incarcerated left inguinal hernia containing dilated fluid-filled loops of small bowel. 2. Small bowel obstruction is noted. 3. Surgical consultation is advised. <MYCVCSECTION> Communications: 05/12/20 00:55 Call Doctor Regarding Above results, called Dr. Cortes on 05/12 00:55 (-05:00)
[2020-05-12] MEDS ORDERED: ONDANSETRON 4 MG/2 ML VIAL IVP PRN (00:58)
[2020-05-12] MEDS ORDERED: NALOXONE 0.4 MG/ML 1 ML VIAL IV PRN (00:58)
[2020-05-12] MEDS: PANTOPRAZOLE 40 MG/10 ML VIAL IV SCH (08:38)
[2020-05-12] MEDS: ENOXAPARIN 40 MG/0.4 ML SYRINGE SQ SCH (08:38)
--- NOTE | 2020-05-12 10:14 | P.GSHP ---
History of Present Illness H&P Date: 05/12/20 80-year-old male presented to the emergency department with complaints of abdominal pain and bloating and nausea and vomiting episodes. He was noted to be distended. He also was complaining of left groin pain. On exam, he was found to have a large left inguinal hernia that was not reducible. On further workup, he did have a CT of the abdomen and pelvis performed. This was concerning for a small bowel obstruction secondary to an incarcerated inguinal hernia. Currently, the patient states that his nausea is improved. He does continue to complain of some left groin pain. He denies any fevers, chills, chest pain or shortness of breath. - Review of Systems All systems: negative Past Medical History Past Medical History: Atrial Fibrillation, Coronary Artery Disease (CAD), Hyperlipidemia, Hypertension, Myocardial Infarction ([place]), Osteoarthritis (OA), Prostate Disorder Last Myocardial Infarction Date:: unknown History of Any Multi-Drug Resistant Organisms: None Reported Past Surgical History: Coronary Bypass/CABG, Heart Catheterization With Stent, Orthopedic Surgery Additional Past Surgical History / Comment(s): triple bypass 14 years ago, aortic aneurysm repair, TRHA Past Anesthesia/Blood Transfusion Reactions: No Reported Reaction Date of Last Stent Placement:: unknown Past Psychological History: No Psychological Hx Reported Smoking Status: Never smoker Past Alcohol Use History: Rare Additional Past Alcohol Use History / Comment(s): quit smoking 14 yrs. ago, 1ppd for 40 yrs. Past Drug Use History: None Reported - Past Family History Mother Family Medical History: Liver Disease (Mother at the age of 78 form liver cirrhosis) Father Family Medical History: Congestive Heart Failure (CHF) (Father at the age of 78 from CHF.), Hypertension Additional Family Medical History / Comment(s): Patient states that his parents never went to the doctor. He thinks his father of hypertensive disease. He does not know much about his mother. Denies any significant medical history in siblings, is and has kids with no significant medical. lives of at home. Brother(s) Family Medical History: No Reported History (patient has one brother no major issues.) Sister(s) Family Medical History: No Reported History (patient has 2 sisters no major medical problems) Son(s) Family Medical History: No Reported History (patient has 2 sons ok.) Daughter(s) Family Medical History: No Reported History (one daughter ok.) Medications and Allergies Home Medications Medication Instructions Recorded Confirmed Type Apixaban [Eliquis] 5 mg PO BID 07/21/17 05/12/20 History Losartan [Cozaar] 25 mg PO DAILY 07/21/17 05/12/20 History Pravastatin Sodium [Pravachol] 40 mg PO HS 07/21/17 05/12/20 History Terazosin [Hytrin] 5 mg PO DAILY 07/21/17 05/12/20 History Atenolol [Tenormin] 50 mg PO BID 08/26/18 05/12/20 History Econazole 1% Cream [Spectazole] 1 applic TOPICAL BID 05/12/20 05/12/20 History amLODIPine [Norvasc] 5 mg PO DAILY 05/12/20 05/12/20 History Allergies Allergy/AdvReac Type Severity Reaction Status Date / Time No Known Allergies Allergy Verified 05/12/20 08:18 Surgical - Exam Osteopathic Statement: *. No significant issues noted on an osteopathic structural exam other than those noted in the History and Physical/Consult. Vital Signs Temp Pulse Resp BP Pulse Ox 98.6 F 89 19 130/77 93 L 05/11/20 23:06 05/11/20 23:06 05/11/20 23:06 05/11/20 23:06 05/11/20 23:06 - General well developed, well nourished - Eyes PERRL - ENT decreased hearing - Neck trachea midline - Respiratory normal respiratory effort - Abdomen Soft, mildly distended, no rebound, no guarding, left inguinal region with palpable incarcerated hernia, mildly tender to palpation - Psychiatric oriented to time, oriented to person, oriented to place Results - Labs 05/11/20 23:42 05/11/20 23:42 Abnormal Lab Results - Last 24 Hours (Table) 05/11/20 05/11/20 05/12/20 Range/Units 23:42 23:42 00:35 WBC 17.2 H (3.8-10.6) k/uL RBC 6.22 H (4.30-5.90) m/uL Hgb 18.1 H (13.0-17.5) gm/dL Neutrophils # 15.0 H (1.3-7.7) k/uL Lymphocytes # 0.7 L (1.0-4.8) k/uL Monocytes # 1.2 H (0-1.0) k/uL BUN 39 H (9-20) mg/dL Glucose 155 H (74-99) mg/dL Total Bilirubin 1.9 H (0.2-1.3) mg/dL Ur Specific [place] 1.040 H (1.001-1.035) Urine Protein 2+ H (Negative) Urine Blood Trace H (Negative) Urine Bacteria Rare H (None) /hpf Hyaline Casts 7 H (0-2) /lpf Urine Mucus Occasional H (None) /hpf Diabetes panel 05/11/20 Range/Units 23:42 Sodium 137 (137-145) mmol/L Potassium 3.9 (3.5-5.1) mmol/L Chloride 99 (98-107) mmol/L Carbon Dioxide 27 (22-30) mmol/L BUN 39 H (9-20) mg/dL Creatinine 1.07 (0.66-1.25) mg/dL Glucose 155 H (74-99) mg/dL Calcium 9.8 (8.4-10.2) mg/dL AST 27 (17-59) U/L ALT 17 (4-49) U/L Alkaline Phosphatase 88 (38-126) U/L Total Protein 7.1 (6.3-8.2) g/dL Albumin 4.4 (3.5-5.0) g/dL Calcium panel 05/11/20 Range/Units 23:42 Calcium 9.8 (8.4-10.2) mg/dL Albumin 4.4 (3.5-5.0) g/dL Pituitary panel 05/11/20 Range/Units 23:42 Sodium 137 (137-145) mmol/L Potassium 3.9 (3.5-5.1) mmol/L Chloride 99 (98-107) mmol/L Carbon Dioxide 27 (22-30) mmol/L BUN 39 H (9-20) mg/dL Creatinine 1.07 (0.66-1.25) mg/dL Glucose 155 H (74-99) mg/dL Calcium 9.8 (8.4-10.2) mg/dL Adrenal panel 05/11/20 Range/Units 23:42 Sodium 137 (137-145) mmol/L Potassium 3.9 (3.5-5.1) mmol/L Chloride 99 (98-107) mmol/L Carbon Dioxide 27 (22-30) mmol/L BUN 39 H (9-20) mg/dL Creatinine 1.07 (0.66-1.25) mg/dL Glucose 155 H (74-99) mg/dL Calcium 9.8 (8.4-10.2) mg/dL Total Bilirubin 1.9 H (0.2-1.3) mg/dL AST 27 (17-59) U/L ALT 17 (4-49) U/L Alkaline Phosphatase 88 (38-126) U/L Total Protein 7.1 (6.3-8.2) g/dL Albumin 4.4 (3.5-5.0) g/dL Assessment and Plan Plan: 80-year-old male with incarcerated left inguinal hernia, likely causing small bowel obstruction. Patient is also noted to have taken out this with last dose at 6 PM on 05/11/2020. Based on concern of incarceration versus strangulation of bowel, patient will require urgent procedure. We will attempt a left i nguinal hernia repair with possible exploratory laparotomy based on findings. Risk of bleeding was discussed with the patient. I also discussed the case with pharmacy and will have reversal agents on hold based on patient's hemostasis. All questions were answered with the patient. Risks, benefits and alternatives were provided. Further recommendations to be made after procedure is completed.
--- NOTE | 2020-05-12 10:21 | P.CONS ---
History of Present Illness - Reason for Consult Consult date: 05/12/20 Medical Management Requesting physician: Michael Aguiar - Chief Complaint Incarcertaed left inguinal hernia. - History of Present Illness This is an 80 year old male with a previous medical history significant for CAD post CABG 14 years ago with PCI, hypertension and hypertensive cardiovascular disease, hyperlipidemia, BPH, chronic atrial fibrillation, known to have left inguinal hernia for a long time presented to the ER at [facility] for increased abdominal pain for the past few days and no bowel movement, had a CT scan of the abdomen and pelvis that showed incarcertaed left nguinal hernia with small bowel obstruction and was admitted to surgery and medical consultation was placed for me. Review of Systems Constitutional: Denies anorexia, Denies fatigue, Denies fever, Denies lethargy, Denies weakness Eyes: denies blurred vision, denies bulging eye Ears, nose, mouth and throat: Denies epistaxis, Denies neck lump, Denies sore throat Cardiovascular: Denies chest pain, Denies decreased exercise tolerance, Denies dyspnea on exertion, Denies lightheadedness, Denies rapid heart beat, Denies shortness of breath, Denies syncope Respiratory: Denies congestion, Denies cough with sputum, Denies home oxygen, Denies sleep apnea, Denies snoring, Denies wheezing Gastrointestinal: Reports abdominal pain, Reports bloating, Reports change in bowel habits, Reports constipation, Reports loss of appetite, Reports nausea, Reports vomiting, Denies heartburn, Denies melena Musculoskeletal: Denies myalgias Musculoskeletal: absent: ankle pain, ankle stiffness, ankle swelling, elbow pain, elbow stiffness, elbow swelling, foot pain, foot stiffness, foot swelling, hand pain, hand stiffness, hand swelling, hip pain, hip stiffness, hip swelling, knee pain, knee stiffness, knee swelling, shoulder pain, shoulder stiffness, shoulder swelling, wrist pain, wrist stiffness Integumentary: Denies pruritus, Denies rash Neurological: Denies numbness, Denies weakness Psychiatric: Denies anxiety, Denies depression Endocrine: Denies fatigue, Denies weight change Past Medical History Past Medical History: Atrial Fibrillation, Coronary Artery Disease (CAD), Hyperlipidemia, Hypertension, Myocardial Infarction ([place]), Osteoarthritis (OA), Prostate Disorder Last Myocardial Infarction Date:: unknown History of Any Multi-Drug Resistant Organisms: None Reported Past Surgical History: Coronary Bypass/CABG, Heart Catheterization With Stent, Orthopedic Surgery Additional Past Surgical History / Comment(s): triple bypass 14 years ago, aortic aneurysm repair, TRHA Past Anesthesia/Blood Transfusion Reactions: No Reported Reaction Date of Last Stent Placement:: unknown Past Psychological History: No Psychological Hx Reported Smoking Status: Never smoker Past Alcohol Use History: Rare Additional Past Alcohol Use History / Comment(s): quit smoking 14 yrs. ago, 1ppd for 40 yrs. Past Drug Use History: None Reported - Past Family History Mother Family Medical History: Liver Disease (Mother at the age of 78 form liver cirrhosis) Father Family Medical History: Congestive Heart Failure (CHF) (Father at the age of 78 from CHF.), Hypertension Additional Family Medical History / Comment(s): Patient states that his parents never went to the doctor. He thinks his father of hypertensive disease. He does not know much about his mother. Denies any significant medical history in siblings, is and has kids with no significant medical. lives of at home. Brother(s) Family Medical History: No Reported History (patient has one brother no major issues.) Sister(s) Family Medical History: No Reported History (patient has 2 sisters no major medical problems) Son(s) Family Medical History: No Reported History (patient has 2 sons ok.) Daughter(s) Family Medical History: No Reported History (one daughter ok.) Medications and Allergies Home Medications Medication Instructions Recorded Confirmed Type Apixaban [Eliquis] 5 mg PO BID 07/21/17 05/12/20 History Losartan [Cozaar] 25 mg PO DAILY 07/21/17 05/12/20 History Pravastatin Sodium [Pravachol] 40 mg PO HS 07/21/17 05/12/20 History Terazosin [Hytrin] 5 mg PO DAILY 07/21/17 05/12/20 History Atenolol [Tenormin] 50 mg PO BID 08/26/18 05/12/20 History Econazole 1% Cream [Spectazole] 1 applic TOPICAL BID 05/12/20 05/12/20 History amLODIPine [Norvasc] 5 mg PO DAILY 05/12/20 05/12/20 History Allergies Allergy/AdvReac Type Severity Reaction Status Date / Time No Known Allergies Allergy Verified 05/12/20 08:18 Physical Exam Vitals: Vital Signs Temp Pulse Pulse Resp BP BP Pulse Ox 05/12/20 02:00 98.1 F 72 14 167/101 95 05/12/20 00:55 98.2 F 67 16 140/97 95 05/11/20 23:06 98.6 F 89 19 130/77 93 L Intake and Output 05/11/20 05/12/20 05/12/20 22:59 06:59 14:59 Intake Total 100 Balance 100 Intake: Intake, IV Titration 100 Amount Sodium Chloride 0.9% 1, 100 000 ml @ 999 mls/hr IV . Q1H1M STA Rx#:[id number] Other: Voiding Method Toilet Urinal Weight 81.647 kg Physical examination: HEENT: head is atraumatic nomocephalic pupils were equal round reactive to light and accommodations extra ocular muscle movements were intact. Neck: supple no JVP. Chest: decreased breath sounds at the bases with a few ronchi, no expiratory wheezes, intercostal retractions. Heart: first heart sound is depressed, second heart sound is normal irregularly irregular, there is KRISTIN 2/6 located at the left sternal border. Abdomen: soft, non-distended, there is moderate to severe tenderness in the left inguinal area due to incarcerated left we will hernia. Neurologic examination: awake alert and oriented X3 CN II-XII are grossly intact, muscle power 4/5 in upper and lower extremities bilaterally, Deep tendon reflexes were depressed bilaterally. Results CBC & Chem 7: 05/11/20 23:42 05/11/20 23:42 Labs: Abnormal Lab Results - Last 24 Hours (Table) 05/11/20 05/11/20 05/12/20 Range/Units 23:42 23:42 00:35 WBC 17.2 H (3.8-10.6) k/uL RBC 6.22 H (4.30-5.90) m/uL Hgb 18.1 H (13.0-17.5) gm/dL Neutrophils # 15.0 H (1.3-7.7) k/uL Lymphocytes # 0.7 L (1.0-4.8) k/uL Monocytes # 1.2 H (0-1.0) k/uL BUN 39 H (9-20) mg/dL Glucose 155 H (74-99) mg/dL Total Bilirubin 1.9 H (0.2-1.3) mg/dL Ur Specific [place] 1.040 H (1.001-1.035) Urine Protein 2+ H (Negative) Urine Blood Trace H (Negative) Urine Bacteria Rare H (None) /hpf Hyaline Casts 7 H (0-2) /lpf Urine Mucus Occasional H (None) /hpf Assessment and Plan Assessment: Assessment and Plan: 1. Acute incarcerated left inguinal hernia with resultant small bowel obst ruction. patient is currently NPO , will need to go for surgent suricat correction, there is no contraindication for surgery at this point,we will follow post operatively, patient has been on Eliquis and the question is the risk of bleeding we will discuss with general surgery continue IV fluid resu scitation the form of normal saline at 1 25 mL an hour, continue Zofran of the medication for now., 2. Acute small bowel obstruction due to incarcerated left inguinla hernia. we will continue with IVF, NPO, and surgery, we will continue with pain control and Zofran. 3. Leukocytosis due to small bowel obstruction and incarcerated left inguinal hernia. we will continue to monitor and we will add Zosyn . 4. CAD post CABG and PCI with stent placement. we will continue with Atenolol 50 mg orally bid and ASA 81 mg orally daily along with Pravastatin 40 mg orally daily. 5. Hypertension and hypertensive cardiovascular disease. we will continue with Losartan 12.5 mg orally daily, Amlodipine 10 mg orally daily and Atenolol 50 mg orally bid. 6. Hyperlipidemia. we will continue with Pravastatin 40 mg orally daily.' 7. Atrial fibrillation. we will continue with Atenolol 50 mg orally bid and Hold Eliquis for surgery. 8. BPH. we will continue with Terazosin 5 mg orally daily. 9. DVT prophylaxis. we will continue with Lovenox 40 mg SC daily and bilateral knee-high bette hose. 10. GI prophylaxis. we will continue with PPI. 12. Thank you for the consult we will follow the patient with you.
[2020-05-12] MEDS ORDERED: IV FLUID CONTINUATION 900 ML IV ONE (10:44)
[2020-05-12] MEDS ORDERED: fentaNYL (PF) 50 MCG/ML 2 ML AMP ONE (10:44)
[2020-05-12] MEDS ORDERED: PHENYLEPHRINE 10 MG/ML VIAL ONE (10:44)
[2020-05-12] MEDS ORDERED: SUCCINYLCHOLINE CHLORIDE 100 MG/5 ML SYR IV ONE (10:44)
[2020-05-12] MEDS ORDERED: MIDAZOLAM 2 MG/2 ML VIAL ONE (10:44)
[2020-05-12] MEDS ORDERED: SODIUM CHLORIDE 0.9% 100 ML BAG ONE (10:44)
[2020-05-12] MEDS ORDERED: ceFAZolin 1,000 MG VIAL ONE (10:44)
[2020-05-12] MEDS ORDERED: PROPOFOL 10 MG/ML 20 ML VIAL IV ONE (10:44)
[2020-05-12] MEDS ORDERED: LIDOCAINE 2%-EPI 1:100,000 20 ML VIAL SQ ONE (11:08)
[2020-05-12] MEDS ORDERED: LACTATED RINGERS 1,000 ML IV ONE (11:43)
--- NOTE | 2020-05-12 12:31 | P.OP ---
Date of Procedure: 05/12/20 Preoperative Diagnosis: Incarcerated left inguinal hernia Postoperative Diagnosis: Incarcerated left inguinal hernia containing small bowel and large bowel Procedure(s) Performed: Left inguinal hernia repair Anesthesia: ROLANDO Surgeon: Michael Aguiar Pathology: other (Hernia sac) Condition: stable Disposition: floor Indications for Procedure: 80-year-old male presented to the emergency department with complaints of nausea vomiting and abdominal pain along with groin pain. He was found to have an inca rcerated left inguinal hernia causing a small bowel obstruction. There is also concern for possible strangulation, however the patient did not have any lactic acidosis indicating ischemic bowel. Plan is for left inguinal hernia repair with possible exploratory laparotomy based on findings. He was explained risks, benefits and alternatives to the procedure. His last dose of anticoagulation was yesterday at 6 PM. He is aware of risk of bleeding. Hemostatic agent is on hold after discussion with pharmacy. Patient did provide consent prior to attending the operating suite. Operative Findings: Incarcerated left inguinal hernia with large and small bowel. Small bowel was noted to be edematous, however no obvious ischemia or gangrenous bowel. Description of Procedure: The patient was brought into the operating suite and placed in supine position on the operating table. Sedation was provided by anesthesia and the patient underwent endotracheal intubation. The patient was prepped and draped in regular sterile fashion by prepping his entire abdomen and bilateral groin. Nasogastric tube was placed by anesthesia with immediate output of 600 mL of bilious material. A left inguinal incision was made and dissection was carried to the external oblique aponeurosis. The external oblique aponeurosis was incised and the incision was carried towards the external ring and up towards the ASIS. A large amount of hernia sac was noted that was hard to the touch. Dissection was carried to free the hernia sac from surroundings and the hernia sac was entered. Immediate outpouring of ascitic fluid was noted. Colon was noted within the hernia sac with multiple diverticuli. Small bowel was also clearly visualized and hernia sac. The small bowel did appear edematous, however did not appear gangrenous or necrotic. The bowel was closely examined and mesentery was also examined. Mesentery did have palpable pulsation. No evidence of bowel was noted. At this point, the large and small bowel were reduced into the abdominal cavity. The hernia sac was suture ligated and sent as specimen. Based on the outpouring of ascitic fluid from the hernia sac, there is concern for mesh placement as this could lead to mesh infection. At this point, it was decided to repair this hernia with a standard Jarad suture repair. Multiple 3-0 Vicryl interrupted sutures were placed from the transversus abdominis aponeurosis to Asher's ligament along the iliopubic tract. No significant bleeding was noted throughout the procedure. The external oblique aponeurosis was then reapproximated using a running 3-0 Vicryl suture re-creating a external ring. The wound was then closed in layered format with 3-0 Vicryl suture and 4-0 Vicryl subcuticular suture. Sterile dressing was applied. The patient was awakened in the operating suite and taken to postanesthesia care unit in stable condition.
[2020-05-12] MEDS ORDERED: MORPHINE SULFATE 2 MG/ML SYRINGE IVP PRN (12:32)
[2020-05-12] MEDS: atenoloL 50 MG TAB PO SCH (20:06)
[2020-05-12] MEDS: CLOTRIMAZOLE 1% CREAM 15 GM TUBE TOPICAL SCH (20:06)
[2020-05-12] MEDS: PRAVASTATIN SODIUM 40 MG TAB PO SCH (20:06)
[2020-05-13 07:56] LABS: HCT 47.2 % (39.0-53.0); MCH 27.7 pg (25.0-35.0); MCHC 31.7 g/dL (31.0-37.0); MCV 87.3 fL (80.0-100.0); Mean Platelet Volume 8.7; Platelet Count 159 k/uL (150-450); RDW 13.6 % (11.5-15.5); WBC 12.8 k/uL (3.8-10.6)
[2020-05-13 08:26] LABS: Band Neutrophils % 24 %; Lymphocytes # (M) 0.51 k/uL (1.0-4.8); Monocytes # (M) 0.51 k/uL (0-1.0); Neutrophils % (M) 69 %; Nucleated Red Blood Cells 0 /100 WBC (0-0); Poikilocytosis (M) Present; Total Cells Counted 200; Toxic Granulation Present
--- NOTE | 2020-05-13 08:38 | P.PN ---
Subjective Progress Note Date: 05/13/20 Patient seen and examined at bedside. States he is doing well. Denies abdominal pain. NG tube in place with approximately 400 mL of bilious fluid in canister since surgery yesterday. Denies any nausea or vomiting. He thinks that he has passed gas, however unclear. Has urinated since procedure. Objective - Vital Signs Vital signs: Vital Signs Temp 98.1 F 05/13/20 08:00 Pulse 82 05/13/20 08:00 Resp 18 05/13/20 08:00 BP 146/81 05/13/20 08:00 Pulse Ox 90 L 05/13/20 08:00 Intake & Output 05/12/20 05/13/20 05/13/20 18:59 06:59 18:59 Intake Total 1300 Output Total 365 350 Balance 935 -350 Weight 81.647 kg Intake: IV 1300 Oral 0 Output: Gastric Drainage 50 Urine 300 350 Estimated Blood Loss 15 Other: Voiding Method Toilet Toilet Urinal Urinal # Voids 0 1 - Constitutional General appearance: Present: cooperative, no acute distress - Respiratory Details: No difficulty with respiration - Gastrointestinal Gastrointestinal Comment(s): Abdomen is soft, mildly distended, no rebound, no guarding, Left groin incision site clean, dry and intact with surgical dressing in place - Psychiatric Psychiatric: Present: A&O x's 3 - Labs CBC & Chem 7: 05/13/20 06:42 05/11/20 23:42 Labs: Abnormal Lab Results - Last 24 Hours (Table) 05/13/20 Range/Units 06:42 WBC 12.8 H (3.8-10.6) k/uL Neutrophils # (Manual) 11.90 H (1.3-7.7) k/uL Lymphocytes # (Manual) 0.51 L (1.0-4.8) k/uL Assessment and Plan Plan: Postoperative day #1, repair of incarcerated left inguinal hernia causing small bowel obstruction - Continue nasogastric tube and await further bowel function - Continue pain control, as necessary - Case discussed with patient's primary care physician, Dr. Haley - Will consult cardiology based on chronic cardiac conditions and atrial fibrillation - Hold anticoagulation until tomorrow at the earliest - Keep nothing by mouth, continue IV fluids
--- NOTE | 2020-05-13 08:44 | P.PN ---
Subjective Progress Note Date: 05/13/20 This is an 80 year old male with a previous medical history significant for CAD post CABG 14 years ago with PCI, hypertension and hypertensive cardiovascular disease, hyperlipidemia, BPH, chronic atrial fibrillation, known to have left inguinal hernia for a long time presented to the ER at [facility] for increased abdominal pain for the past few days and no bowel movement, had a CT scan of the abdomen and pelvis that showed incarcertaed left nguinal hernia with small bowel obstruction and was admitted to surgery and medical consultation was placed for me. 05/13/20: Patient underwent left incarcerated inguinal hernia, he appears a little better today, he had an NG tube placed in the OR yesterday because of significant abdominal distention and he had almost a liter of biliary stuff coming out, he went into atrial fibrillation with rapid ventricular response during induction anesthesia, he is currently in atrial progression with controlled rate. Consultation was obtained, he is maintained on nothing per mouth for now for another 24 hours, he denies any chest pain, shortness breath, he does appear to have some hiccups, he denies any abdominal pain, his pain in the left inguinal area appears to be controlled. Objective - Vital Signs Vital signs: Vital Signs Temp 98.1 F 05/13/20 08:00 Pulse 82 05/13/20 08:00 Resp 18 05/13/20 08:00 BP 146/81 05/13/20 08:00 Pulse Ox 90 L 05/13/20 08:00 Intake & Output 05/12/20 05/13/20 05/13/20 18:59 06:59 18:59 Intake Total 1300 Output Total 365 350 Balance 935 -350 Weight 81.647 kg Intake: IV 1300 Oral 0 Output: Gastric Drainage 50 Urine 300 350 Estimated Blood Loss 15 Other: Voiding Method Toilet Toilet Urinal Urinal # Voids 0 1 - Exam Review of Systems Constitutional: Denies anorexia, Denies fatigue, Denies fever, Denies lethargy, Denies weakness Eyes: denies blurred vision, denies bulging eye Ears, nose, mouth and throat: Denies epistaxis, Denies neck lump, Denies sore throat Cardiovascular: Denies chest pain, Denies decreased exercise tolerance, Denies dyspnea on exertion, Denies lightheadedness, Denies rapid heart beat, Denies shortness of breath, Denies syncope Respiratory: Denies congestion, Denies cough with sputum, Denies home oxygen, Denies sleep apnea, Denies snoring, Denies wheezing Gastrointestinal: Reports abdominal pain, Reports bloating, Reports change in bowel habits, Reports constipation, Reports loss of appetite, Reports nausea, Reports vomiting, Denies heartburn, Denies melena Musculoskeletal: Denies myalgias Musculoskeletal: absent: ankle pain, ankle stiffness, ankle swelling, elbow pain, elbow stiffness, elbow swelling, foot pain, foot stiffness, foot swelling, hand pain, hand stiffness, hand swelling, hip pain, hip stiffness, hip swelling, knee pain, knee stiffness, knee swelling, shoulder pain, shoulder stiffness, shoulder swelling, wrist pain, wrist stiffness Integumentary: Denies pruritus, Denies rash Neurological: Denies numbness, Denies weakness Psychiatric: Denies anxiety, Denies depression Endocrine: Denies fatigue, Denies weight change Physical examination: HEENT: head is atraumatic nomocephalic pupils were equal round reactive to light and accommodations extra ocular muscle movements were intact. Neck: supple no JVP. Chest: decreased breath sounds at the bases with a few ronchi, no expiratory wheezes, intercostal retractions. Heart: first heart sound is depressed, second heart sound is normal irregularly irregular, there is KRISTIN 2/6 located at the left sternal border. Abdomen: soft, non-distended, there is moderate to severe tenderness in the left inguinal area due to incarcerated left we will hernia. Neurologic examination: awake alert and oriented X3 CN II-XII are grossly intact, muscle power 4/5 in upper and lower extremities bilaterally, Deep tendon reflexes were depressed bilaterally. - Labs CBC & Chem 7: 05/13/20 06:42 05/11/20 23:42 Labs: Abnormal Lab Results - Last 24 Hours (Table) 05/13/20 Range/Units 06:42 WBC 12.8 H (3.8-10.6) k/uL Neutrophils # (Manual) 11.90 H (1.3-7.7) k/uL Lymphocytes # (Manual) 0.51 L (1.0-4.8) k/uL Assessment and Plan Assessment: Assessment and Plan: 1. Postoperative day #1 status post Acute incarcerated left inguinal hernia with resultant small bowel obstruction. patient is currently NPO , with NG tube in place, continue with the current management, IV fluid, continue antiemetics, patient is being followed by general surgery, we'll continue the NG tube for another 24 hours until the patient has a functioning valve. 2. Acute small bowel obstruction due to incarcerated left inguinla hernia. we will continue with IVF, NPO, and surgery, we will continue with pain control and Zofran. 3. Leukocytosis due to small bowel obstruction and incarcerated left inguinal hernia. we will continue to monitor and we will add Zosyn . 4. CAD post CABG and PCI with stent placement. we will continue with Atenolol 50 mg orally bid and ASA 81 mg orally daily along with Pravastatin 40 mg orally daily. 5. Hypertension and hypertensive cardiovascular disease. we will continue with Losartan 12.5 mg orally daily, Amlodipine 10 mg orally daily and Atenolol 50 mg orally bid. 6. Hyperlipidemia. we will continue with Pravastatin 40 mg orally daily.' 7. Atrial fibrillation. we will continue with Atenolol 50 mg orally bid and Hold Eliquis for surgery consultation cardiology.. 8. BPH. we will continue with Terazosin 5 mg orally daily. 9. DVT prophylaxis. we will continue with Lovenox 40 mg SC daily and bilateral knee-high bette hose. 10. GI prophylaxis. we will continue with PPI. 12. We'll continue to monitor.
[2020-05-13] MEDS: DOXAZOSIN 4 MG TAB PO SCH (08:49)
[2020-05-13] MEDS: LOSARTAN 25 MG TAB PO SCH (08:49)
[2020-05-13] MEDS: amLODIPine 5 MG TAB PO SCH (08:49)
[2020-05-13] MEDS: atenoloL 50 MG TAB PO SCH ×2 (08:49→20:58)
[2020-05-13] MEDS: CLOTRIMAZOLE 1% CREAM 15 GM TUBE TOPICAL SCH ×2 (08:50→20:58)
[2020-05-13] MEDS: ENOXAPARIN 40 MG/0.4 ML SYRINGE SQ SCH (08:50)
[2020-05-13] MEDS: PANTOPRAZOLE 40 MG/10 ML VIAL IV SCH (08:51)
[2020-05-13] MEDS: LACTATED RINGERS 1,000 ML IV SCH ×2 (11:35→16:56)
[2020-05-13 11:43] LABS: African American GFR (CKD) 59.3 (60.0-200.0); Albumin 3.4 g/dL (3.80-4.90); Albumin/Globulin Ratio 2.27 (1.60-3.17); Anion Gap 10.8 mmol/L (4.00-12.00); BUN/Creat Ratio 35.38 Ratio (12.00-20.00); Calcium 7.8 mg/dL (8.7-10.3); Carbon Dioxide 24.2 mmol/L (21.6-31.8); Globulin 1.5 g/dL (1.6-3.3); Magnesium 1.9 mg/dL (1.5-2.4); Non-African American GFR(CKD) 51.2 (60.0-200.0); Phosphorus 4.9 mg/dL (2.4-5.1); Potassium 3.8 mmol/L (3.5-5.5); Total Protein 4.9 g/dL (6.2-8.2)
--- NOTE | 2020-05-13 14:28 | P.CRDCN ---
History of Present Illness History of present illness: HISTORY OF PRESENTING ILLNESS This is a pleasant 80-year-old male past medical history significant for coronary artery disease s/p bypass grafting 2006 with TY to LAD and SVG to PDA and OM, abdominal aortic aneurysm status post repair, chronic persistent atrial fibrillation on long-term anticoagulation, moderate mitral regurgitation, hypertension, chronic systolic heart failure and dyslipidemia. He follows in the office with Dr. Leggett. We have been asked to see in consultation for A. fib with RVR. He presented to the hospital over the weekend with symptoms of severe abdominal pain. He was found to have an incarcerated inguinal hernia and small bowel obstruction. He underwent surgical repair with Dr. Aguiar yesterday. Yesterday during his procedure during induction of anesthesia he had an episode of A. fib with RVR with heart rate in the 150s according to Dr. Aguiar. There are no telemetry strips available for review. He is not currently on the cardiac cath rn. He is seen and examined resting comfortably sitting up in bed with an NG tube in place. He denies symptoms of chest pain, shortness of breath, dizziness or palpitations. He recently underwent an echocardiogram in the office in January 2020 revealing decreased LV systolic function with ejection fraction 42%, mild to moderate mitral regurgitation and mild to moderate tricuspid regurgitation. DIAGNOSTICS EKG on admission reveals atrial fibrillation heart rate of 70 with T-wave inversions noted in the high lateral and anterior leads. CT of the abdomen and pelvis on admission reveals subsegmental atelectasis at the lung bases with cardiomegaly and distal esophagitis. He also had a ousmane ulated or incarcerated left inguinal hernia containing dilated fluid-filled loops of the small bowel with a small bowel obstruction. Laboratory reviewed, WBC on admission 17.2 repeat today 12.8, hemoglobin 15, platelets 159, sodium 137, potassium 3.9, creatinine 1.07 and troponin negative 1. Current cardiac medications include amlodipine 5 mg daily, Terazosin 5 mg daily, pravastatin 40 mg at bedtime, losartan 25 mg daily, atenolol 50 mg twice a day and Eliquis 5 mg twice a day. REVIEW OF SYSTEMS At the time of my exam: CONSTITUTIONAL: Denies fever or chills. CARDIOVASCULAR: Denies chest pain, shortness of breath, orthopnea, PND or palpitations. RESPIRATORY: Denies cough. GASTROINTESTINAL: Denies abdominal pain, diarrhea, constipation, nausea or vomiting. MUSCULOSKELETAL: Denies myalgias. NEUROLOGIC: Denies numbness, tingling, headacbe or weakness. ENDOCRINE: Denies fatigue, weight change, polydipsia or polyurina. GENITOURINARY: Denies burning, hematuria or urgency with micturation. HEMATOLOGIC: Denies history of anemia or bleeding. PHYSICAL EXAMINATION Blood pressure 146/81 heart rate 82 afebrile and maintaining low normal oxygen saturation on 4 liters nasal cannula. CONSTITUTIONAL: No apparent distress. HEENT: Head is normocephalic. Pupils are equal, round. Sclerae anicteric. Mucous membranes of the mouth are moist. No JVD. No carotid bruit. NG tube in place. CHEST EXAMINATION: Scattered rhonchi. No rales or wheezes. No chest wall tenderness is noted on palpation or with deep breathing. HEART EXAMINATION: Irregular rate and rhythm. S1, S2 heard. Systolic ejection murmur at the base, no gallops or rub. ABDOMEN: Soft, nontender. Positive bowel sounds. EXTREMITIES: 2+ peripheral pulses, no lower extremity edema and no calf tenderness. NEUROLOGIC EXAMINATION: Patient is awake, alert and oriented x3. ASSESSMENT Chronic persistent atrial fibrillation with rapid ventricular rate, currently controlled Incarcerated inguinal hernia status post repair Small bowel obstruction Chronic systolic heart failure Coronary artery disease status post bypass grafting in 2006 Hypertension Dyslipidemia PLAN Obtain chest xray secondary to requiring more oxygen. Cautions fluid administration. Eliquis currently on hold per Dr. Aguiar secondary to recent surgery and he states there was significant amount of oozing yesterday at the surgical site. Apply coverage specialist to follow heart rates. Thank you kindly for this consultation. Nurse Practitioner note has been reviewed, I agree with a documented findings and plan of care. Patient was seen and examined. Past Medical History Past Medical History: Atrial Fibrillation, Coronary Artery Disease (CAD), Hyperlipidemia, Hypertension, Myocardial Infarction (HI), Osteoarthritis (OA), Prostate Disorder Last Myocardial Infarction Date:: unknown History of Any Multi-Drug Resistant Organisms: None Reported Past Surgical History: Coronary Bypass/CABG, Heart Catheterization With Stent, Orthopedic Surgery Additional Past Surgical History / Comment(s): triple bypass 14 years ago, aortic aneurysm repair, TRHA Past Anesthesia/Blood Transfusion Reactions: No Reported Reaction Date of Last Stent Placement:: unknown Past Psychological History: No Psychological Hx Reported Smoking Status: Never smoker Past Alcohol Use History: Rare Additional Past Alcohol Use History / Comment(s): quit smoking 14 yrs. ago, 1ppd for 40 yrs. Past Drug Use History: None Reported - Past Family History Mother Family Medical History: Liver Disease (Mother at the age of 78 form liver cirrhosis) Father Family Medical History: Congestive Heart Failure (CHF) (Father at the age of 78 from CHF.), Hypertension Additional Family Medical History / Comment(s): Patient states that his parents never went to the doctor. He thinks his father of hypertensive disease. He does not know much about his mother. Denies any significant medical history in siblings, is and has kids with no significant medical. lives of at home. Brother(s) Family Medical History: No Reported History (patient has one brother no major issues.) Sister(s) Family Medical History: No Reported History (patient has 2 sisters no major medical problems) Son(s) Family Medical History: No Reported History (patient has 2 sons ok.) Daughter(s) Family Medical History: No Reported History (one daughter ok.) Medications and Allergies Home Medications Medication Instructions Recorded Confirmed Type Apixaban [Eliquis] 5 mg PO BID 07/21/17 05/12/20 History Losartan [Cozaar] 25 mg PO DAILY 07/21/17 05/12/20 History Pravastatin Sodium [Pravachol] 40 mg PO HS 07/21/17 05/12/20 History Terazosin [Hytrin] 5 mg PO DAILY 07/21/17 05/12/20 History Atenolol [Tenormin] 50 mg PO BID 08/26/18 05/12/20 History Econazole 1% Cream [Spectazole] 1 applic TOPICAL BID 05/12/20 05/12/20 History amLODIPine [Norvasc] 5 mg PO DAILY 05/12/20 05/12/20 History Allergies Allergy/AdvReac Type Severity Reaction Status Date / Time No Known Allergies Allergy Verified 05/12/20 08:18 Physical Exam Vitals: Vital Signs Temp Pulse Resp BP Pulse Ox 05/13/20 08:00 98.1 F 82 18 146/81 90 L 05/13/20 01:11 97.5 F L 85 14 134/84 92 L 05/12/20 19:30 97.6 F 83 15 110/71 90 L 05/12/20 19:05 16 05/12/20 15:33 108/72 05/12/20 15:18 98/64 05/12/20 15:03 99/64 05/12/20 14:48 105/70 05/12/20 14:36 108/52 05/12/20 14:19 126/79 05/12/20 14:05 141/80 05/12/20 13:48 145/105 05/12/20 13:41 98.0 F 94 16 153/91 94 L 05/12/20 13:19 100 16 156/89 91 L 05/12/20 13:04 100 16 153/85 94 L 05/12/20 12:49 97 16 165/92 94 L 05/12/20 12:34 99 20 141/82 93 L 05/12/20 12:19 97.8 F 107 H 20 145/85 94 L Intake and Output 05/12/20 05/13/20 05/13/20 22:59 06:59 14:59 Intake Total 0 Output Total 350 Balance 0 -350 Intake: Oral 0 Output: Urine 350 Other: Voiding Method Toilet Urinal # Voids 0 1 Results 05/13/20 06:42 05/13/20 06:42 CBC 05/13/20 Range/Units 06:42 WBC 12.8 H (3.8-10.6) k/uL RBC 5.40 (4.30-5.90) m/uL Hgb 15.0 D (13.0-17.5) gm/dL Hct 47.2 (39.0-53.0) % Plt Count 159 (150-450) k/uL Current Medications Generic Name Dose Route Start Last Admin Trade Name Freq PRN Reason Stop Dose Admin Amlodipine Besylate 5 mg 05/13/20 09:00 05/13/20 08:49 Amlodipine 5 Mg Tab PO 5 mg DAILY MARLENE Administration Atenolol 50 mg 05/12/20 21:00 05/13/20 08:49 Atenolol 50 Mg Tab PO 50 mg BID MARLENE Administration Clotrimazole 1 applic 05/12/20 21:00 05/13/20 08:50 Clotrimazole 1% Cream 15 Gm Tube TOPICAL 1 applic BID MARLENE Administration Doxazosin Mesylate 4 mg 05/13/20 09:00 05/13/20 08:49 Doxazosin 4 Mg Tab PO 4 mg DAILY MARLENE Administration Enoxaparin Sodium 40 mg 05/12/20 09:00 05/13/20 08:50 Enoxaparin 40 Mg/0.4 Ml Syringe SQ 40 mg DAILY MARLENE Administration Lactated Ringer's 1,000 mls @ 125 mls/hr 05/13/20 08:45 Lactated Ringers IV .Q8H MARLENE Losartan Potassium 25 mg 05/13/20 09:00 05/13/20 08:49 Losartan 25 Mg Tab PO 25 mg DAILY MARLENE Administration Morphine Sulfate 2 mg 05/12/20 12:32 Morphine Sulfate 2 Mg/Ml Syringe IVP Q4H PRN Pain/Discomfort Naloxone HCl 0.2 mg 05/12/20 00:58 Naloxone 0.4 Mg/Ml 1 Ml Vial IV Q2M PRN Opioid Reversal Ondansetron HCl 4 mg 05/12/20 00:58 05/12/20 05:51 Ondansetron 4 Mg/2 Ml Vial IVP 4 mg Q8HR PRN Administration Nausea And Vomiting Pantoprazole Sodium 40 mg 05/12/20 09:00 05/13/20 08:51 Pantoprazole 40 Mg/10 Ml Vial IV 40 mg DAILY MARLENE Administration Pravastatin Sodium 40 mg 05/12/20 21:00 05/12/20 20:06 Pravastatin Sodium 40 Mg Tab PO 40 mg HS MARLENE Administration Intake and Output 05/12/20 05/13/20 05/13/20 22:59 06:59 14:59 Intake Total 0 Output Total 350 Balance 0 -350 Intake: Oral 0 Output: Urine 350 Other: Voiding Method Toilet Urinal # Voids 0 1 05/13/20 06:42 05/11/20 23:42
--- NOTE | 2020-05-13 19:26 | XR ---
EXAMINATION TYPE: XR chest 2V DATE OF EXAM: 05/13/2020 COMPARISON: 08/26/2018. HISTORY: Shortness of breath. TECHNIQUE: Frontal and lateral views of the chest are obtained. FINDINGS: There is demonstration of an NG tube with tip overlying the gastroesophageal junction. The re is diffuse moderate patchy airspace opacity in the right mid to lower lung. No significant pleural effusion. No pneumothorax. Stable cardiomegaly and prior post surgical changes. No acute osseous abn ormality. Partially imaged moderate gaseous colonic distention noted. IMPRESSION: Diffuse right infiltrates. NG tube with tip overlying the GE junction. Recommend advancing 3-5 cm.
[2020-05-13] MEDS: PRAVASTATIN SODIUM 40 MG TAB PO SCH (20:58)
[2020-05-14] MEDS: LACTATED RINGERS 1,000 ML IV SCH (05:01)
[2020-05-14 06:08] LABS: Basophils % (A) 0 %; Eosinophils # (A) 0.1 k/uL (0-0.7); Eosinophils % (A) 1 %; HGB 13.2 gm/dL (13.0-17.5); Lymphocytes # (A) 0.4 k/uL (1.0-4.8); Lymphocytes % (A) 4 %; MCH 29.1 pg (25.0-35.0); MCHC 33.8 g/dL (31.0-37.0); MCV 86.1 fL (80.0-100.0); Mean Platelet Volume 8.6; Monocytes # (A) 0.6 k/uL (0-1.0); Monocytes % (A) 5 %; Neutrophils # (A) 9.7 k/uL (1.3-7.7); Neutrophils % (A) 90 %; Platelet Count 127 k/uL (150-450); RBC 4.53 m/uL (4.30-5.90); RDW 13.3 % (11.5-15.5); WBC 10.8 k/uL (3.8-10.6)
--- NOTE | 2020-05-14 06:51 | P.PN ---
Subjective Progress Note Date: 05/14/20 Principal diagnosis: Permanent atrial fibrillation This is a pleasant 80-year-old gentleman with history of permanent atrial fibrillation as well as hypertension and dyslipidemia who was admitted to the hospital incarcerated inguinal hernia and underwent surgery. The sodium pat ient's post surgery because he was in atrial fibrillation with rapid ventricular response. The patient was seen this morning. He continues to be in atrial fibrillation was controlled heart rate. He continues to have an NG tube. He is taking his medications including atenolol. The oral anticoagulation continues to be on hold at this point. The patient denies having any symptoms of chest pain or chest discomfort and denies having any shortness of breath or dizziness or lightheadedness. Old he is a stable. Objective - Vital Signs Vital signs: Vital Signs Temp 97.8 F 05/14/20 02:33 Pulse 74 05/14/20 02:33 Resp 16 05/13/20 20:00 BP 144/78 05/14/20 02:33 Pulse Ox 91 L 05/14/20 02:33 Intake & Output 05/13/20 05/13/20 05/14/20 06:59 18:59 06:59 Output Total 350 600 Balance -350 -600 Output: Urine 350 600 Other: Voiding Method Toilet Toilet Toilet Urinal Urinal Urinal # Voids 1 2 1 - Constitutional General appearance: Present: no acute distress - Respiratory Respiratory: bilateral: diminished - Cardiovascular Rhythm: irregularly irregular Heart sounds: normal: S1, S2 - Labs CBC & Chem 7: 05/14/20 05:41 05/13/20 06:42 Labs: Abnormal Lab Results - Last 24 Hours (Table) 05/13/20 05/13/20 05/14/20 Range/Units 06:42 06:42 05:41 WBC 12.8 H 10.8 H (3.8-10.6) k/uL Plt Count 127 L (150-450) k/uL Neutrophils # 9.7 H (1.3-7.7) k/uL Neutrophils # (Manual) 11.90 H (1.3-7.7) k/uL Lymphocytes # 0.4 L (1.0-4.8) k/uL Lymphocytes # (Manual) 0.51 L (1.0-4.8) k/uL BUN 46.0 H (9.0-27.0) mg/dL Est GFR (CKD-EPI)AfAm 59.3 L (60.0-200.0) Est GFR (CKD-EPI)NonAf 51.2 L (60.0-200.0) BUN/Creatinine Ratio 35.38 H (12.00-20.00) Ratio Glucose 162 H (70-110) mg/dL Calcium 7.8 L (8.7-10.3) mg/dL Total Bilirubin 2.0 H (0.2-1.2) mg/dL Total Protein 4.9 L (6.2-8.2) g/dL Albumin 3.40 L (3.80-4.90) g/dL Globulin 1.5 L (1.6-3.3) g/dL Assessment and Plan Assessment: Assessment #1 permanent atrial fibrillation was controlled heart rate #2 status post inguinal hernia surgery #3 multiple comorbid conditions Plan #1 continue the current medical regimen #2 restart the patient on oral anticoagulation once this safe from a surgical standpoint of
--- NOTE | 2020-05-14 08:04 | XR ---
EXAMINATION TYPE: XR chest 1V portable DATE OF EXAM: 05/14/2020 COMPARISON: 05/13/1999 HISTORY: Cough, NG tube placement TECHNIQUE: Single frontal view of the chest is obtained. FINDINGS: NG tube seen extending in the abdomen. There is bilateral diffuse infiltrate stable appear ance. Postoperative change and cardiomegaly noted. Tiny left effusion. No pneumothorax. IMPRESSION: 1. NG tube appears coiled within the gastric fundus. 2. Bilateral airspace disease stable.
[2020-05-14] MEDS ORDERED: FUROSEMIDE 10 MG/ML 2 ML VIAL IV ONE (08:33)
[2020-05-14] MEDS ORDERED: SODIUM CHLORIDE 0.9% 1,000 ML IV SCH (08:45)
[2020-05-14] MEDS ORDERED: LEVOFLOXACIN 500MG-D5W PMX 500 MG in DEXTROSE/WATER 1 100ML.BAG IVPB SCH (09:00)
[2020-05-14] MEDS: PANTOPRAZOLE 40 MG/10 ML VIAL IV SCH (09:58)
[2020-05-14] MEDS: amLODIPine 5 MG TAB PO SCH (10:01)
[2020-05-14] MEDS: ENOXAPARIN 40 MG/0.4 ML SYRINGE SQ SCH (10:02)
[2020-05-14] MEDS: CLOTRIMAZOLE 1% CREAM 15 GM TUBE TOPICAL SCH ×2 (10:02→21:23)
[2020-05-14] MEDS: LOSARTAN 25 MG TAB PO SCH (10:02)
[2020-05-14] MEDS: atenoloL 50 MG TAB PO SCH ×2 (10:02→21:21)
[2020-05-14 10:23] LABS: African American GFR (CKD) 97.1 (60.0-200.0); Albumin 3.1 g/dL (3.80-4.90); Albumin/Globulin Ratio 2.38 (1.60-3.17); Anion Gap 3.8 mmol/L (4.00-12.00); BUN/Creat Ratio 47.5 Ratio (12.00-20.00); Calcium 7.8 mg/dL (8.7-10.3); Carbon Dioxide 26.2 mmol/L (21.6-31.8); Globulin 1.3 g/dL (1.6-3.3); Non-African American GFR(CKD) 83.8 (60.0-200.0); Potassium 3.3 mmol/L (3.5-5.5); Total Bilirubin 1.7 mg/dL (0.3-1.2); Total Protein 4.4 g/dL (6.2-8.2)
--- NOTE | 2020-05-14 11:10 | P.PN ---
Subjective Progress Note Date: 05/14/20 Patient seen and examined at bedside. States he is having a significant amount of flatus. Denies any abdominal pain. Denies any nausea or vomiting. Objective - Vital Signs Vital signs: Vital Signs Temp 97.8 F 05/14/20 08:00 Pulse 74 05/14/20 08:00 Resp 18 05/14/20 08:00 BP 147/84 05/14/20 08:00 Pulse Ox 93 L 05/14/20 08:00 Intake & Output 05/13/20 05/14/20 05/14/20 18:59 06:59 18:59 Output Total 600 Balance -600 Output: Urine 600 Other: Voiding Method Toilet Toilet Urinal Urinal Urinal # Voids 2 1 - Constitutional General appearance: Present: cooperative, no acute distress - Gastrointestinal Gastrointestinal Comment(s): Soft, nontender, nondistended, no rebound, guarding, left groin incision clean, dry and intact with no obvious hematoma - Psychiatric Psychiatric: Present: A&O x's 3 - Labs CBC & Chem 7: 05/14/20 05:41 05/14/20 05:41 Labs: Abnormal Lab Results - Last 24 Hours (Table) 05/13/20 05/14/20 05/14/20 Range/Units 06:42 05:41 05:41 WBC 10.8 H (3.8-10.6) k/uL Plt Count 127 L (150-450) k/uL Neutrophils # 9.7 H (1.3-7.7) k/uL Lymphocytes # 0.4 L (1.0-4.8) k/uL Potassium 3.3 L (3.5-5.5) mmol/L Chloride 114 H (96-109) mmol/L Anion Gap 3.80 L (4.00-12.00) mmol/L BUN 46.0 H 38.0 H (9.0-27.0) mg/dL Est GFR (CKD-EPI)AfAm 59.3 L (60.0-200.0) Est GFR (CKD-EPI)NonAf 51.2 L (60.0-200.0) BUN/Creatinine Ratio 35.38 H 47.50 H (12.00-20.00) Ratio Glucose 162 H (70-110) mg/dL Calcium 7.8 L 7.8 L (8.7-10.3) mg/dL Total Bilirubin 2.0 H 1.7 H (0.2-1.2) mg/dL Total Protein 4.9 L 4.4 L (6.2-8.2) g/dL Albumin 3.40 L 3.10 L (3.80-4.90) g/dL Globulin 1.5 L 1.3 L (1.6-3.3) g/dL Assessment and Plan Plan: Postoperative day #2, repair of incarcerated left inguinal hernia causing small bowel obstruction - Patient is having flatus, discontinue nasogastric tube and begin clear liquid diet - Continue pain control, as necessary - CXR with bilateral infiltrates, internal medicine treating patient - Cardiology consultation appreciated - Okay to restart anticoagulation beginning tomorrow
[2020-05-14] MEDS: IPRATROPIUM-ALBUTEROL 3 ML NEB INHALATION SCH ×4 (11:29→23:52)
[2020-05-14] MEDS: DOXAZOSIN 4 MG TAB PO SCH (11:47)
--- NOTE | 2020-05-14 12:04 | P.PN ---
Subjective Progress Note Date: 05/14/20 This is an 80 year old male with a previous medical history significant for CAD post CABG 14 years ago with PCI, hypertension and hypertensive cardiovascular disease, hyperlipidemia, BPH, chronic atrial fibrillation, known to have left inguinal hernia for a long time presented to the ER at [facility] for increased abdominal pain for the past few days and no bowel movement, had a CT scan of the abdomen and pelvis that showed incarcertaed left nguinal hernia with small bowel obstruction and was admitted to surgery and medical consultation was placed for fl. 05/13/20: Patient underwent left incarcerated inguinal hernia, he appears a little better today, he had an NG tube placed in the OR yesterday because of significant abdominal distention and he had almost a liter of biliary stuff coming out, he went into atrial fibrillation with rapid ventricular response during induction anesthesia, he is currently in atrial progression with controlled rate. Consultation was obtained, he is maintained on nothing per mouth for now for another 24 hours, he denies any chest pain, shortness breath, he does appear to have some hiccups, he denies any abdominal pain, his pain in the left inguinal area appears to be controlled. 05/14: Patient is postop day #2 for repair of incarcerated left inguinal hernia repair causing small bowel obstruction. Chest x-ray from yesterday reveals diffuse right infiltrates. Repeat x-ray today reveals the same stable. Consult added for Dr. Mckee for pneumonia. Patient is passing gas. He denies having any nausea or vomiting. No abdominal pain. No bowel movement. Repeat blood work reveals WBC 10.8, hemoglobin 13.2, platelet count 127. Sodium 144, potassium 3.3, chloride 114, CO2 26.2, BUN 38 creatinine 0.8. Blood sugar 110. Patient to start clear liquid diet. The patient is followed by Dr. Easley for permanent atrial fibrillation. Patient has been cleared to resume anticoagulation tomorrow from Dr. Aguiar. Objective - Vital Signs Vital signs: Vital Signs Temp 97.8 F 05/14/20 08:00 Pulse 74 05/14/20 08:00 Resp 18 05/14/20 08:00 BP 147/84 05/14/20 08:00 Pulse Ox 93 L 05/14/20 08:00 Intake & Output 01/11/21 01/12/21 01/12/21 18:59 06:59 18:59 Output Total 600 Balance -600 Output: Urine 600 Other: Voiding Method Toilet Toilet Urinal Urinal # Voids 2 1 - Exam Review of Systems Constitutional: Denies anorexia, Denies fatigue, Denies fever, Denies lethargy, Denies weakness Eyes: denies blurred vision, denies bulging eye Ears, nose, mouth and throat: Denies epistaxis, Denies neck lump, Denies sore throat Cardiovascular: Denies chest pain, Denies decreased exercise tolerance, Denies dyspnea on exertion, Denies lightheadedness, Denies rapid heart beat, Denies shortness of breath, Denies syncope Respiratory: Denies congestion, Denies cough with sputum, Denies home oxygen, Denies sleep apnea, Denies snoring, Denies wheezing Gastrointestinal: Denies abdominal pain, Reports bloating, Reports change in bowel habits, Reports constipation, Reports loss of appetite, denies nausea, denies vomiting, Denies heartburn, Denies melena Musculoskeletal: Denies myalgias Musculoskeletal: absent: ankle pain, ankle stiffness, ankle swelling, elbow pain, elbow stiffness, elbow swelling, foot pain, foot stiffness, foot swelling, hand pain, hand stiffness, hand swelling, hip pain, hip stiffness, hip swelling, knee pain, knee stiffness, knee swelling, shoulder pain, shoulder stiffness, shoulder swelling, wrist pain, wrist stiffness Integumentary: Denies pruritus, Denies rash Neurological: Denies numbness, Denies weakness Psychiatric: Denies anxiety, Denies depression Endocrine: Denies fatigue, Denies weight change Physical examination: HEENT: head is atraumatic nomocephalic pupils were equal round reactive to light and accommodations extra ocular muscle movements were intact. Neck: supple no JVP. Chest: decreased breath sounds at the bases with a few ronchi, no expiratory wheezes, intercostal retractions. Heart: first heart sound is depressed, second heart sound is normal irregularly irregular, there is KRISTIN 2/6 located at the left sternal border. Abdomen: soft, non-distended, no tenderness no guarding. Surgical wound clean and dry. Neurologic examination: awake alert and oriented X3 CN II-XII are grossly intact, muscle power 4/5 in upper and lower extremities bilaterally, Deep tendon reflexes were depressed bilaterally. - Labs CBC & Chem 7: 05/14/20 05:41 05/14/20 05:41 Labs: Abnormal Lab Results - Last 24 Hours (Table) 05/13/20 05/14/20 Range/Units 06:42 05:41 WBC 10.8 H (3.8-10.6) k/uL Plt Count 127 L (150-450) k/uL Neutrophils # 9.7 H (1.3-7.7) k/uL Lymphocytes # 0.4 L (1.0-4.8) k/uL BUN 46.0 H (9.0-27.0) mg/dL Est GFR (CKD-EPI)AfAm 59.3 L (60.0-200.0) Est GFR (CKD-EPI)NonAf 51.2 L (60.0-200.0) BUN/Creatinine Ratio 35.38 H (12.00-20.00) Ratio Glucose 162 H (70-110) mg/dL Calcium 7.8 L (8.7-10.3) mg/dL Total Bilirubin 2.0 H (0.2-1.2) mg/dL Total Protein 4.9 L (6.2-8.2) g/dL Albumin 3.40 L (3.80-4.90) g/dL Globulin 1.5 L (1.6-3.3) g/dL Assessment and Plan Plan: 1. Postoperative day #2 status post Acute incarcerated left inguinal hernia with resultant small bowel obstruction. patient advanced to clear liquids, continue with the current management, IV fluid, continue antiemetics, patient is being followed by general surgery. 2. Acute small bowel obstruction due to incarcerated left inguinla hernia. we will continue with IVF, and surgery, we will continue with pain control and Zofran. 3. Leukocytosis due to small bowel obstruction and incarcerated left inguinal hernia. we will continue to monitor and we will add Zosyn . 4. CAD post CABG and PCI with stent placement. we will continue with Atenolol 50 mg orally bid and ASA 81 mg orally daily along with Pravastatin 40 mg orally daily. 5. Hypertension and hypertensive cardiovascular disease. we will continue with Losartan 12.5 mg orally daily, Amlodipine 10 mg orally daily and Atenolol 50 mg orally bid. 6. Hyperlipidemia. we will continue with Pravastatin 40 mg orally daily.' 7. Persistent Atrial fibrillation. we will continue with Atenolol 50 mg orally bid. Patient cleared to start eliquis tomorrow and Lovenox will be discontinued 8. BPH. we will continue with Terazosin 5 mg orally daily. 9. DVT prophylaxis. Eliquis and bilateral knee-high bette hose. 10. GI prophylaxis. we will continue with PPI. 12. Right-sided pneumonia. Patient started on DuoNeb treatments every 4 hours, Levaquin 500 mg IV daily, Zosyn 3.375 g IV piggyback every 8 hours. Consult with pulmonary medicine Discharge plan: Home without home care Impression and plan of care have been directed as dictated by the signing physician. Mary Galindo nurse practitioner acting as scribe for signing physician.
[2020-05-14] MEDS: PIPERACILLIN-TAZOBACTAM 3.375 GM in SODIUM CHLORIDE 0.9% 100 ML IVPB SCH ×3 (13:21→21:21)
--- NOTE | 2020-05-14 16:47 | P.CNPUL ---
History of Present Illness Consult date: 05/14/20 Requesting physician: Michael Aguiar Reason for consult: dyspnea, hypoxemia, pneumonia, abnormal CXR/CT Chief complaint: Acute hypoxic respiratory failure likely related to aspiration pneumonia History of present illness: 80-year-old white male patient of was admitted to the hospital on 05/11/2020 when he came in [facility] for evaluation of increased abdominal pain, no bowel movements for several days, and computed tomography scan of the abdomen and pelvis showed incarcerated left inguinal hernia with small bowel obstruction. Patient underwent left incarcerated inguinal hernia repair on 05/12/2020. Patient had a NG tube placed for significant abdominal distention, decompression. Patient had episode of atrial fibrillation with RVR, currently heart rate is better controlled. Patient developed worsening hypoxia, chest x- ray was obtained showing diffuse right perihilar infiltrates with the suspicion for aspiration pneumonia. Patient is on 4 L of oxygen and pulse ox is 93%, he sounds very wheezy and congested on physical exam, he is not able to bring up any sputum he is complaining of cough, but no chest pain, his been afebrile, hemodynamically stable, no altered mentation, he is up in the recliner, awake and oriented 3, and started on Levaquin and Zosyn for empiric antibiotic coverage, NG tube has been discontinued, he remains on IV fluids at 0.9 normal saline 25 ML per hour, he was given a dose of IV Lasix earlier for an episode of increased shortness of breath. Review of Systems All systems: negative Constitutional: Denies chills, Denies fever Eyes: denies blurred vision, denies pain Ears, nose, mouth and throat: Denies headache, Denies sore throat Cardiovascular: Denies chest pain, Denies shortness of breath Respiratory: Reports dyspnea, Reports respiratory infections, Reports wheezing, Denies cough Gastrointestinal: Denies abdominal pain, Denies diarrhea, Denies nausea, Denies vomiting Musculoskeletal: Denies myalgias Integumentary: Denies pruritus, Denies rash Neurological: Denies numbness, Denies weakness Psychiatric: Denies anxiety, Denies depression Endocrine: Denies fatigue, Denies weight change Past Medical History Past Medical History: Atrial Fibrillation, Coronary Artery Disease (CAD), Hyperlipidemia, Hypertension, Myocardial Infarction (NH), Osteoarthritis (OA), Prostate Disorder Last Myocardial Infarction Date:: unknown History of Any Multi-Drug Resistant Organisms: None Reported Past Surgical History: Coronary Bypass/CABG, Heart Catheterization With Stent, Orthopedic Surgery Additional Past Surgical History / Comment(s): triple bypass 14 years ago, aortic aneurysm repair, TRHA Past Anesthesia/Blood Transfusion Reactions: No Reported Reaction Date of Last Stent Placement:: unknown Past Psychological History: No Psychological Hx Reported Smoking Status: Never smoker Past Alcohol Use History: Rare Additional Past Alcohol Use History / Comment(s): quit smoking 14 yrs. ago, 1ppd for 40 yrs. Past Drug Use History: None Reported - Past Family History Mother Family Medical History: Liver Disease (Mother at the age of 78 form liver cirrhosis) Father Family Medical History: Congestive Heart Failure (CHF) (Father at the age of 78 from CHF.), Hypertension Additional Family Medical History / Comment(s): Patient states that his parents never went to the doctor. He thinks his father of hypertensive disease. He does not know much about his mother. Denies any significant medical history in siblings, is and has kids with no significant medical. lives of at home. Brother(s) Family Medical History: No Reported History (patient has one brother no major issues.) Sister(s) Family Medical History: No Reported History (patient has 2 sisters no major medical problems) Son(s) Family Medical History: No Reported History (patient has 2 sons ok.) Daughter(s) Family Medical History: No Reported History (one daughter ok.) Medications and Allergies Home Medications Medication Instructions Recorded Confirmed Type Apixaban [Eliquis] 5 mg PO BID 07/21/17 05/12/20 History Losartan [Cozaar] 25 mg PO DAILY 07/21/17 05/12/20 History Pravastatin Sodium [Pravachol] 40 mg PO HS 07/21/17 05/12/20 History Terazosin [Hytrin] 5 mg PO DAILY 07/21/17 05/12/20 History Atenolol [Tenormin] 50 mg PO BID 08/26/18 05/12/20 History Econazole 1% Cream [Spectazole] 1 applic TOPICAL BID 05/12/20 05/12/20 History amLODIPine [Norvasc] 5 mg PO DAILY 05/12/20 05/12/20 History Allergies Allergy/AdvReac Type Severity Reaction Status Date / Time No Known Allergies Allergy Verified 05/12/20 08:18 Physical Exam Vitals: Vital Signs Temp Pulse Pulse Resp BP Pulse Ox 05/14/20 15:59 80 05/14/20 15:48 82 05/14/20 14:31 97.8 F 80 18 118/67 93 L 05/14/20 11:47 80 05/14/20 11:36 80 05/14/20 08:00 97.8 F 74 18 147/84 93 L 05/14/20 02:33 97.8 F 74 144/78 91 L 05/13/20 20:00 16 05/13/20 19:12 97.5 F L 93 137/89 93 L Intake and Output 05/14/20 05/14/20 05/14/20 06:59 14:59 22:59 Output Total 1000 Balance -1000 Output: Gastric Drainage 200 Urine 800 Other: Voiding Method Urinal # Voids 1 GENERAL EXAM: Alert, very pleasant, hard of hearing, 80-year-old white male, on 4 L of oxygen, pulse oximetry 93% comfortable in no apparent distress. HEAD: Normocephalic/atraumatic. EYES: Normal reaction of pupils, equal size. Conjunctiva pink, sclera white. NOSE: Clear with pink turbinates. THROAT: No erythema or exudates. NECK: No masses, no JVD, no thyroid enlargement, no adenopathy. CHEST: No chest wall deformity. Symmetrical expansion. LUNGS: Equal air entry with rhonchi and wheezes and bilateral bases CVS: Regular rate and rhythm, normal S1 and S2, no gallops, no murmurs, no rubs ABDOMEN: Soft, nontender. No hepatosplenomegaly, normal bowel sounds, no guarding or rigidity. EXTREMITIES: No clubbing, no edema, no cyanosis, 2+ pulses and upper and lower extremities. MUSCULOSKELETAL: Muscle strength and tone normal. SPINE: No scoliosis or deformity SKIN: No rashes CENTRAL NERVOUS SYSTEM: Alert and oriented -3. No focal deficits, tone is normal in all 4 extremities. PSYCHIATRIC: Alert and oriented -3. Appropriate affect. Intact judgment and insight. Results - Laboratory Findings CBC and BMP: 05/14/20 05:41 05/14/20 05:41 Abnormal lab findings: Abnormal Labs 05/11/20 05/11/2021 23:42 23:42 00:35 WBC 17.2 H RBC 6.22 H Hgb 18.1 H Plt Count Neutrophils # 15.0 H Neutrophils # (Manual) Lymphocytes # 0.7 L Lymphocytes # (Manual) Monocytes # 1.2 H Potassium Chloride Anion Gap BUN 39 H Est GFR (CKD-EPI)AfAm Est GFR (CKD-EPI)NonAf BUN/Creatinine Ratio Glucose 155 H Calcium Total Bilirubin 1.9 H Total Protein Albumin Globulin Ur Specific [place] 1.040 H Urine Protein 2+ H Urine Blood Trace H Urine Bacteria Rare H Hyaline Casts 7 H Urine Mucus Occasional H 05/13/20 05/13/20 05/14/20 06:42 06:42 05:41 WBC 12.8 H 10.8 H RBC Hgb Plt Count 127 L Neutrophils # 9.7 H Neutrophils # (Manual) 11.90 H Lymphocytes # 0.4 L Lymphocytes # (Manual) 0.51 L Monocytes # Potassium Chloride Anion Gap BUN 46.0 H Est GFR (CKD-EPI)AfAm 59.3 L Est GFR (CKD-EPI)NonAf 51.2 L BUN/Creatinine Ratio 35.38 H Glucose 162 H Calcium 7.8 L Total Bilirubin 2.0 H Total Protein 4.9 L Albumin 3.40 L Globulin 1.5 L Ur Specific [place] Urine Protein Urine Blood Urine Bacteria Hyaline Casts Urine Mucus 05/14/20 05:41 WBC RBC Hgb Plt Count Neutrophils # Neutrophils # (Manual) Lymphocytes # Lymphocytes # (Manual) Monocytes # Potassium 3.3 L Chloride 114 H Anion Gap 3.80 L BUN 38.0 H Est GFR (CKD-EPI)AfAm Est GFR (CKD-EPI)NonAf BUN/Creatinine Ratio 47.50 H Glucose Calcium 7.8 L Total Bilirubin 1.7 H Total Protein 4.4 L Albumin 3.10 L Globulin 1.3 L Ur Specific [place] Urine Protein Urine Blood Urine Bacteria Hyaline Casts Urine Mucus - Diagnostic Findings Chest x-ray: report reviewed, image reviewed Assessment and Plan Plan: Assessment: #1. Acute hypoxic respiratory failure related to right lung pneumonia, with possibility of aspiration pneumonia #2. Incarcerated left inguinal hernia containing small bowel and large bowel, status post surgical repair, postoperative day #2 #3. Small bowel obstruction related to the above, improved after surgical repair, NG tube has been discontinued this morning #4. Chronic A. fib, Eliquis has been resumed today. Patient had episode of rapid ventricular response, currently better controlled #5. Hypertension #6. Hyperlipidemia #7. History of CAD with previous PCI and stenting and previous history of bypass grafting #8. BPH #9. Hard of hearing Plan: Continue breathing treatments, no need for steroids, chest x-ray has been reviewed, aspiration pneumonia is highly suspected, will continue with Zosyn for monotherapy, we'll discontinue the Levaquin, clinically patient is stable, we'll continue to follow. I performed a history & physical examination of the patient and discussed their management with my nurse practitioner, Mariam Oh. I reviewed the nurse practitioner's note and agree with the documented findings and plan of care. Lung sounds are positive for diffuse rhonchi and wheezes. The findings and the impression was discussed with the patient. I attest to the documentation by the nurse practitioner. Time with Patient: Greater than 30
[2020-05-14] MEDS ORDERED: POTASSIUM CHLORIDE 20 MEQ in WATER FOR INJECTION 1 100ML.BAG IVPB ONE ×2 (19:53→20:00)
[2020-05-14] MEDS: PRAVASTATIN SODIUM 40 MG TAB PO SCH (21:21)
[2020-05-15] MEDS: IPRATROPIUM-ALBUTEROL 3 ML NEB INHALATION SCH ×6 (03:22→23:37)
[2020-05-15] MEDS: PIPERACILLIN-TAZOBACTAM 3.375 GM in SODIUM CHLORIDE 0.9% 100 ML IVPB SCH ×3 (05:55→20:30)
[2020-05-15 06:29] LABS: Basophils % (A) 0 %; Eosinophils # (A) 0.1 k/uL (0-0.7); Eosinophils % (A) 1 %; HCT 38.9 % (39.0-53.0); HGB 13.1 gm/dL (13.0-17.5); Lymphocytes # (A) 0.4 k/uL (1.0-4.8); Lymphocytes % (A) 4 %; MCH 29.2 pg (25.0-35.0); MCHC 33.8 g/dL (31.0-37.0); MCV 86.4 fL (80.0-100.0); Mean Platelet Volume 8.6; Monocytes # (A) 0.5 k/uL (0-1.0); Monocytes % (A) 5 %; Neutrophils # (A) 8.3 k/uL (1.3-7.7); Neutrophils % (A) 89 %; Platelet Count 137 k/uL (150-450); RDW 13.2 % (11.5-15.5); WBC 9.3 k/uL (3.8-10.6)
[2020-05-15] MEDS: DEXTROSE 5%-0.45% NACL 1,000 ML IV SCH ×2 (07:17→08:44)
--- NOTE | 2020-05-15 08:20 | P.PN ---
Subjective Progress Note Date: 05/15/20 Patient seen and examined at bedside. States he is feeling well. Denies nausea or vomiting. Tolerating clear liquid diet. States he is having a significant amount of flatus but no bowel movement as of yet. Denies any pain. Objective - Vital Signs Vital signs: Vital Signs Temp 99.2 F 05/15/20 07:55 Pulse 60 05/15/20 07:57 Resp 17 05/15/20 07:55 BP 149/86 05/15/20 07:55 Pulse Ox 94 L 05/15/20 07:55 Intake & Output 05/14/20 05/15/20 05/15/20 18:59 06:59 18:59 Output Total 1000 700 Balance -1000 -700 Output: Gastric Drainage 200 Urine 800 700 Other: Voiding Method Urinal # Voids 1 - Constitutional General appearance: Present: cooperative, no acute distress - Gastrointestinal Gastrointestinal Comment(s): Soft, nontender, mildly distended, no rebound, no guarding, left inguinal incision clean, dry and intact - Psychiatric Psychiatric: Present: A&O x's 3 - Labs CBC & Chem 7: 05/15/20 05:33 05/14/20 05:41 Labs: Abnormal Lab Results - Last 24 Hours (Table) 05/14/20 05/15/20 Range/Units 05:41 05:33 Hct 38.9 L (39.0-53.0) % Plt Count 137 L (150-450) k/uL Neutrophils # 8.3 H (1.3-7.7) k/uL Lymphocytes # 0.4 L (1.0-4.8) k/uL Potassium 3.3 L (3.5-5.5) mmol/L Chloride 114 H (96-109) mmol/L Anion Gap 3.80 L (4.00-12.00) mmol/L BUN 38.0 H (9.0-27.0) mg/dL BUN/Creatinine Ratio 47.50 H (12.00-20.00) Ratio Calcium 7.8 L (8.7-10.3) mg/dL Total Bilirubin 1.7 H (0.3-1.2) mg/dL Total Protein 4.4 L (6.2-8.2) g/dL Albumin 3.10 L (3.80-4.90) g/dL Globulin 1.3 L (1.6-3.3) g/dL Assessment and Plan Plan: Postoperative day #3, repair of incarcerated left inguinal hernia causing small bowel obstruction - Patient is having flatus, awaiting further bowel function. Advance to full liquid diet - Continue pain control, as necessary - CXR with bilateral infiltrates, internal medicine, pulmonology evaluation - Cardiology consultation appreciated - Anticoagulation restarted - Progressing slowly, continue medical management
[2020-05-15] MEDS: APIXABAN 5 MG TAB PO SCH ×2 (08:43→20:30)
[2020-05-15] MEDS: PANTOPRAZOLE 40 MG/10 ML VIAL IV SCH (08:43)
[2020-05-15] MEDS: atenoloL 50 MG TAB PO SCH ×2 (08:43→20:30)
[2020-05-15] MEDS: amLODIPine 5 MG TAB PO SCH (08:43)
[2020-05-15] MEDS: LOSARTAN 25 MG TAB PO SCH (08:43)
[2020-05-15] MEDS: CLOTRIMAZOLE 1% CREAM 15 GM TUBE TOPICAL SCH ×2 (08:43→20:33)
[2020-05-15] MEDS: DOXAZOSIN 4 MG TAB PO SCH (08:43)
[2020-05-15 10:14] LABS: African American GFR (CKD) 92.5 (60.0-200.0); Albumin/Globulin Ratio 2.14 (1.60-3.17); Anion Gap 6.8 mmol/L (4.00-12.00); BUN/Creat Ratio 26.67 Ratio (12.00-20.00); Calcium 7.8 mg/dL (8.7-10.3); Carbon Dioxide 28.2 mmol/L (21.6-31.8); Globulin 1.4 g/dL (1.6-3.3); Magnesium 1.9 mg/dL (1.5-2.4); Non-African American GFR(CKD) 79.8 (60.0-200.0); Potassium 3.4 mmol/L (3.5-5.5); Total Bilirubin 1.8 mg/dL (0.2-1.2); Total Protein 4.4 g/dL (6.2-8.2)
[2020-05-15] MEDS: POTASSIUM CHLORIDE ER 20 MEQ TAB.ER PO SCH ×2 (10:29→11:10)
--- NOTE | 2020-05-15 11:44 | P.PN ---
Subjective HISTORY OF PRESENTING ILLNESS This is a pleasant 80-year-old male past medical history significant for coronary artery disease s/p bypass grafting 2006 with TY to LAD and SVG to PDA and OM, abdominal aortic aneurysm status post repair, chronic persistent atrial fibrillation on long-term anticoagulation, moderate mitral regurgitation, hypertension, chronic systolic heart failure and dyslipidemia. He follows in the office with Dr. Leggett. He is seen and examined sitting up in chair in no acute distress. HEENT denies symptoms of chest pain, shortness of breath, dizziness or palpitations. Blood pressure 149/86 heart rate 64 afebrile maintaining oxygen saturation on nasal cannula. Laboratory data reviewed, sodium 142, potassium 3.4, creatinine 0.9 and magnesium 1.9. Request has been resumed. PHYSICAL EXAMINATION CONSTITUTIONAL: No apparent distress. HEENT: Head is normocephalic. Pupils are equal, round. Sclerae anicteric. Mucous membranes of the mouth are moist. No JVD. No carotid bruit. NG tube in place. CHEST EXAMINATION: Scattered rhonchi. No rales or wheezes. No chest wall tenderness is noted on palpation or with deep breathing. HEART EXAMINATION: Irregular rate and rhythm. S1, S2 heard. Systolic ejection murmur at the base, no gallops or rub. EXTREMITIES: 2+ peripheral pulses, no lower extremity edema and no calf tenderness. ASSESSMENT Chronic persistent atrial fibrillation with rapid ventricular rate, currently controlled Incarcerated inguinal hernia status post repair Small bowel obstruction Hypokalemia Chronic systolic heart failure Coronary artery disease status post bypass grafting in 2006 Hypertension Dyslipidemia PLAN Potassium being replaced per protocol. Eliquis has been resumed for thromboembolic protection. Clinically stable from a cardiac perspective. We will follow along as needed. Nurse Practitioner note has been reviewed, I agree with a documented findings and plan of care. Patient was seen and examined. Objective - Vital Signs Vital signs: Vital Signs Temp 99.2 F 05/15/20 07:55 Pulse 64 05/15/20 11:30 Resp 17 05/15/20 07:55 BP 149/86 05/15/20 07:55 Pulse Ox 94 L 05/15/20 07:55 Intake & Output 05/14/20 05/15/20 05/15/20 18:59 06:59 18:59 Output Total 1000 700 Balance -1000 -700 Output: Gastric Drainage 200 Urine 800 700 Other: Voiding Method Urinal # Voids 1 - Labs CBC & Chem 7: 05/15/20 05:33 05/15/20 05:33 Labs: Abnormal Lab Results - Last 24 Hours (Table) 05/15/20 05/15/20 Range/Units 05:33 05:33 Hct 38.9 L (39.0-53.0) % Plt Count 137 L (150-450) k/uL Neutrophils # 8.3 H (1.3-7.7) k/uL Lymphocytes # 0.4 L (1.0-4.8) k/uL Potassium 3.4 L (3.5-5.5) mmol/L BUN/Creatinine Ratio 26.67 H (12.00-20.00) Ratio Glucose 115 H (70-110) mg/dL Calcium 7.8 L (8.7-10.3) mg/dL Total Bilirubin 1.8 H (0.2-1.2) mg/dL Total Protein 4.4 L (6.2-8.2) g/dL Albumin 3.00 L (3.80-4.90) g/dL Globulin 1.4 L (1.6-3.3) g/dL
--- NOTE | 2020-05-15 16:08 | P.PN ---
Subjective Progress Note Date: 05/15/20 Principal diagnosis: Aspiration pneumonia 80-year-old white male patient of was admitted to the hospital on 05/11/2020 when he came in today hospital for evaluation of increased abdominal pain, no bowel movements for several days, and computed tomography scan of the abdomen and pelvis showed incarcerated left inguinal hernia with small bowel obstruction. Patient underwent left incarcerated inguinal hernia repair on 05/12/2020. Patient had a NG tube placed for significant abdominal distention, decompression. Patient had episode of atrial fibrillation with RVR, currently heart rate is better controlled. Patient developed worsening hypoxia, chest x- ray was obtained showing diffuse right perihilar infiltrates with the suspicion for aspiration pneumonia. Patient is on 4 L of oxygen and pulse ox is 93%, he sounds very wheezy and congested on physical exam, he is not able to bring up any sputum he is complaining of cough, but no chest pain, his been afebrile, hemodynamically stable, no altered mentation, he is up in the recliner, awake and oriented 3, and started on Levaquin and Zosyn for empiric antibiotic coverage, NG tube has been discontinued, he remains on IV fluids at 0.9 normal saline 25 ML per hour, he was given a dose of IV Lasix earlier for an episode of increased shortness of breath. On 05/15/2020 patient seen in follow-up on medical floor, she is breathing comfortably, appears to be in no acute distress, his breathing is improving although still has some coarse breath sounds with diffuse rhonchi. He is on 3 L of oxygen pulse ox of 94%, his been afebrile, blood pressure has been stable, he is on Zosyn for empiric antibiotic coverage for possibility of aspiration pneumonia, he states his breathing easier, no complaint of chest pain no hemoptysis. No nausea or vomiting, his labs have been reviewed, showing white blood cell count down to 9.3, hemoglobin is 13.1, sodium is 142, potassium is 3.4, chloride is 107, B1 of 24, creatinine 0.9. No altered mentation, abdomen is soft, nontender, patient is tolerating full liquid diet Objective - Vital Signs Vital signs: Vital Signs Temp 97.9 F 05/15/20 14:00 Pulse 65 05/15/20 16:01 Resp 16 05/15/20 14:00 BP 100/44 05/15/20 14:00 Pulse Ox 94 L 05/15/20 14:00 Intake & Output 05/14/20 05/15/20 05/15/20 18:59 06:59 18:59 Intake Total 700 Output Total 1000 700 Balance -1000 -700 700 Intake: IV 700 Dextrose 5%-0.45% NaCl 1, 600 000 ml @ 75 mls/hr IV . [id number] [facility] Rx#:[id number] Piperacillin-Tazobactam 3 100 .375 gm In Sodium Chloride 0.9% 100 ml @ 25 mls/hr IVPB Q8H [facility] Rx#: [id number] Output: Gastric Drainage 200 Urine 800 700 Other: Voiding Method Urinal # Voids 1 - Exam GENERAL EXAM: Alert, very pleasant, hard of hearing, 80-year-old white male, on 4 L of oxygen, pulse oximetry 94% comfortable in no apparent distress. HEAD: Normocephalic/atraumatic. EYES: Normal reaction of pupils, equal size. Conjunctiva pink, sclera white. NOSE: Clear with pink turbinates. THROAT: No erythema or exudates. NECK: No masses, no JVD, no thyroid enlargement, no adenopathy. CHEST: No chest wall deformity. Symmetrical expansion. LUNGS: Equal air entry with rhonchi and wheezes and bilateral bases CVS: Regular rate and rhythm, normal S1 and S2, no gallops, no murmurs, no rubs ABDOMEN: Soft, nontender. No hepatosplenomegaly, normal bowel sounds, no guarding or rigidity. EXTREMITIES: No clubbing, no edema, no cyanosis, 2+ pulses and upper and lower extremities. MUSCULOSKELETAL: Muscle strength and tone normal. SPINE: No scoliosis or deformity SKIN: No rashes CENTRAL NERVOUS SYSTEM: Alert and oriented -3. No focal deficits, tone is normal in all 4 extremities. PSYCHIATRIC: Alert and oriented -3. Appropriate affect. Intact judgment and insight. - Labs CBC & Chem 7: 05/15/20 05:33 05/15/20 05:33 Labs: Abnormal Lab Results - Last 24 Hours (Table) 05/15/20 05/15/20 Range/Units 05:33 05:33 Hct 38.9 L (39.0-53.0) % Plt Count 137 L (150-450) k/uL Neutrophils # 8.3 H (1.3-7.7) k/uL Lymphocytes # 0.4 L (1.0-4.8) k/uL Potassium 3.4 L (3.5-5.5) mmol/L BUN/Creatinine Ratio 26.67 H (12.00-20.00) Ratio Glucose 115 H (70-110) mg/dL Calcium 7.8 L (8.7-10.3) mg/dL Total Bilirubin 1.8 H (0.2-1.2) mg/dL Total Protein 4.4 L (6.2-8.2) g/dL Albumin 3.00 L (3.80-4.90) g/dL Globulin 1.4 L (1.6-3.3) g/dL Assessment and Plan Plan: Assessment: #1. Acute hypoxic respiratory failure related to right lung pneumonia, with possibility of aspiration pneumonia #2. Incarcerated left inguinal hernia containing small bowel and large bowel, status post surgical repair, postoperative day #3 #3. Small bowel obstruction related to the above, improved after surgical repair, NG tube has been discontinued this morning #4. Chronic A. fib, Eliquis has been resumed today. Patient had episode of rapid ventricular response, currently better controlled #5. Hypertension #6. Hyperlipidemia #7. History of CAD with previous PCI and stenting and previous history of bypass grafting #8. BPH #9. Hard of hearing Plan: Continue current antibiotics, clinically patient is stable, no fever chills, no worsening dyspnea, we'll add breathing treatments, continue Zosyn, repeat chest x-ray in the morning, wean FiO2, provide the incentive spirometer, continue to follow I performed a history & physical examination of the patient and discussed their management with my nurse practitioner, Mariam Oh. I reviewed the nurse practitioner's note and agree with the documented findings and plan of care. Lung sounds are positive for diffuse rhonchi and wheezes. The findings and the impression was discussed with the patient. I attest to the documentation by the nurse practitioner. Time with Patient: Less than 30
--- NOTE | 2020-05-15 17:01 | P.PN ---
Subjective Progress Note Date: 05/15/20 This is an 80 year old male with a previous medical history significant for CAD post CABG 14 years ago with PCI, hypertension and hypertensive cardiovascular disease, hyperlipidemia, BPH, chronic atrial fibrillation, known to have left inguinal hernia for a long time presented to the ER at [facility] for increased abdominal pain for the past few days and no bowel movement, had a CT scan of the abdomen and pelvis that showed incarcertaed left nguinal hernia with small bowel obstruction and was admitted to surgery and medical consultation was placed for pa. 05/13/20: Patient underwent left incarcerated inguinal hernia, he appears a little better today, he had an NG tube placed in the OR yesterday because of significant abdominal distention and he had almost a liter of biliary stuff coming out, he went into atrial fibrillation with rapid ventricular response during induction anesthesia, he is currently in atrial progression with controlled rate. Consultation was obtained, he is maintained on nothing per mouth for now for another 24 hours, he denies any chest pain, shortness breath, he does appear to have some hiccups, he denies any abdominal pain, his pain in the left inguinal area appears to be controlled. 05/14: Patient is postop day #2 for repair of incarcerated left inguinal hernia repair causing small bowel obstruction. Chest x-ray from yesterday reveals diffuse right infiltrates. Repeat x-ray today reveals the same stable. Consult added for Dr. Mckee for pneumonia. Patient is passing gas. He denies having any nausea or vomiting. No abdominal pain. No bowel movement. Repeat blood work reveals WBC 10.8, hemoglobin 13.2, platelet count 127. Sodium 144, potassium 3.3, chloride 114, CO2 26.2, BUN 38 creatinine 0.8. Blood sugar 110. Patient to start clear liquid diet. The patient is followed by Dr. Easley for permanent atrial fibrillation. Patient has been cleared to resume anticoagulation tomorrow from Dr. Aguiar. 05/15: Patient is postop day #3. He has been afebrile, heart rate 50, blood pressure 149/86, pulse ox 94% on 2 L nasal cannula. Patient is covered for possible aspiration pneumonia with Zosyn. He denies having any chest pain, hardik athing status is improving. No nausea or vomiting. He is tolerating a full liquid diet. He is passing gas but no bowel movement. No abdominal pain. WBC 9.3, hemoglobin 13.1, sodium 142, potassium 3.4, chloride 107, BUN 24, creatinine 0.9. Potassium has been replaced. Patient resumed eliquis this morning. Objective - Vital Signs Vital signs: Vital Signs Temp 99.2 F 05/15/20 07:55 Pulse 60 05/15/20 07:57 Resp 17 05/15/20 07:55 BP 149/86 05/15/20 07:55 Pulse Ox 94 L 05/15/20 07:55 Intake & Output 05/14/20 05/15/20 05/15/20 18:59 06:59 18:59 Output Total 1000 700 Balance -1000 -700 Output: Gastric Drainage 200 Urine 800 700 Other: Voiding Method Urinal # Voids 1 - Exam Review of Systems Constitutional: Denies anorexia, Denies fatigue, Denies fever, Denies lethargy, Denies weakness Eyes: denies blurred vision, denies bulging eye Ears, nose, mouth and throat: Denies epistaxis, Denies neck lump, Denies sore throat Cardiovascular: Denies chest pain, Denies decreased exercise tolerance, Denies dyspnea on exertion, Denies lightheadedness, Denies rapid heart beat, Denies shortness of breath, Denies syncope Respiratory: Denies congestion, Denies cough with sputum, Denies home oxygen, Denies sleep apnea, Denies snoring, Denies wheezing Gastrointestinal: Denies abdominal pain, Reports constipation, Reports loss of appetite, denies nausea, denies vomiting, Denies heartburn, Denies melena Musculoskeletal: Denies myalgias Musculoskeletal: absent: ankle pain, ankle stiffness, ankle swelling, elbow pa in, elbow stiffness, elbow swelling, foot pain, foot stiffness, foot swelling, hand pain, hand stiffness, hand swelling, hip pain, hip stiffness, hip swelling, knee pain, knee stiffness, knee swelling, shoulder pain, shoulder stiffness, shoulder swelling, wrist pain, wrist stiffness Integumentary: Denies pruritus, Denies rash Neurological: Denies numbness, Denies weakness Psychiatric: Denies anxiety, Denies depression Endocrine: Denies fatigue, Denies weight change Physical examination: HEENT: head is atraumatic nomocephalic pupils were equal round reactive to light and accommodations extra ocular muscle movements were intact. Neck: supple no JVP. Chest: decreased breath sounds at the bases with a few ronchi, no expiratory wheezes, intercostal retractions. Heart: first heart sound is depressed, second heart sound is normal irregularly irregular, there is KRISTIN 2/6 located at the left sternal border. Abdomen: soft, non-distended, no tenderness no guarding. Surgical wound clean and dry. Neurologic examination: awake alert and oriented X3 CN II-XII are grossly intact, muscle power 4/5 in upper and lower extremities bilaterally, Deep tendon reflexes were depressed bilaterally. - Labs CBC & Chem 7: 05/15/20 05:33 05/15/20 05:33 Labs: Abnormal Lab Results - Last 24 Hours (Table) 05/14/20 05/15/20 Range/Units 05:41 05:33 Hct 38.9 L (39.0-53.0) % Plt Count 137 L (150-450) k/uL Neutrophils # 8.3 H (1.3-7.7) k/uL Lymphocytes # 0.4 L (1.0-4.8) k/uL Potassium 3.3 L (3.5-5.5) mmol/L Chloride 114 H (96-109) mmol/L Anion Gap 3.80 L (4.00-12.00) mmol/L BUN 38.0 H (9.0-27.0) mg/dL BUN/Creatinine Ratio 47.50 H (12.00-20.00) Ratio Calcium 7.8 L (8.7-10.3) mg/dL Total Bilirubin 1.7 H (0.3-1.2) mg/dL Total Protein 4.4 L (6.2-8.2) g/dL Albumin 3.10 L (3.80-4.90) g/dL Globulin 1.3 L (1.6-3.3) g/dL Assessment and Plan Plan: 1. Postoperative day #3 status post Acute incarcerated left inguinal hernia with resultant small bowel obstruction. patient tolerating clear liquids, co ntinue with the current management, IV fluid, continue antiemetics, patient is being followed by general surgery. Diet advanced to full liquids. 2. Acute small bowel obstruction due to incarcerated left inguinla hernia. we will continue with IVF, and surgery, we will continue with pain control and Zofran. 3. Leukocytosis due to small bowel obstruction and incarcerated left inguinal hernia. we will continue to monitor and continue Zosyn . 4. CAD post CABG and PCI with stent placement. we will continue with Atenolol 50 mg orally bid and ASA 81 mg orally daily along with Pravastatin 40 mg orally daily. 5. Hypertension and hypertensive cardiovascular disease. we will continue with Losartan 12.5 mg orally daily, Amlodipine 10 mg orally daily and Atenolol 50 mg orally bid. 6. Hyperlipidemia. we will continue with Pravastatin 40 mg orally daily.' 7. Persistent Atrial fibrillation. we will continue with Atenolol 50 mg orally bid. Patient resumed on eliquis. 8. BPH. we will continue with Terazosin 5 mg orally daily. 9. DVT prophylaxis. Eliquis and bilateral knee-high bette hose. 10. GI prophylaxis. we will continue with PPI. 12. Right-sided pneumonia. Patient started on DuoNeb treatments every 4 hours, Levaquin 500 mg IV daily, Zosyn 3.375 g IV piggyback every 8 hours. Consult with pulmonary medicine Discharge plan: Home without home care Impression and plan of care have been directed as dictated by the signing physician. Mary Galindo nurse practitioner acting as scribe for signing physician.
[2020-05-15] MEDS: PRAVASTATIN SODIUM 40 MG TAB PO SCH (20:30)
[2020-05-16] MEDS: DEXTROSE 5%-0.45% NACL 1,000 ML IV SCH (00:47)
[2020-05-16] MEDS: IPRATROPIUM-ALBUTEROL 3 ML NEB INHALATION SCH ×6 (03:17→23:57)
[2020-05-16] MEDS: PIPERACILLIN-TAZOBACTAM 3.375 GM in SODIUM CHLORIDE 0.9% 100 ML IVPB SCH (05:48)
[2020-05-16 06:30] LABS: Basophils % (A) 0 %; Eosinophils # (A) 0.3 k/uL (0-0.7); Eosinophils % (A) 3 %; HGB 13.6 gm/dL (13.0-17.5); Lymphocytes # (A) 0.5 k/uL (1.0-4.8); Lymphocytes % (A) 5 %; MCH 29.2 pg (25.0-35.0); MCHC 33.9 g/dL (31.0-37.0); MCV 86.2 fL (80.0-100.0); Mean Platelet Volume 8.6; Monocytes # (A) 0.6 k/uL (0-1.0); Monocytes % (A) 6 %; Neutrophils # (A) 8.4 k/uL (1.3-7.7); Neutrophils % (A) 85 %; Platelet Count 148 k/uL (150-450); RBC 4.65 m/uL (4.30-5.90); RDW 13.1 % (11.5-15.5); WBC 9.9 k/uL (3.8-10.6)
--- NOTE | 2020-05-16 07:31 | XR ---
EXAMINATION TYPE: XR chest 2V DATE OF EXAM: 05/16/2020 COMPARISON: Chest x-ray 2 days ago. HISTORY: Pneumonia progress study. TECHNIQUE: Frontal and lateral views of the chest are obtained. FINDINGS: Interval extubation with removal of endotracheal and orogastric tubes. Overlying sternal wi res and mediastinal clips redemonstrated. Persistent cardiomegaly with atherosclerotic aorta. Persist ent multifocal right sided opacities and left basilar opacity. Cholecystectomy clips redemonstrated. There is gas prominent small bowel loop in the upper abdomen redemonstrated. IMPRESSION: Interval extubation. Persistent cardiomegaly with multifocal right lung infiltrates and left basilar acute infiltrate all redemonstrated.
[2020-05-16] MEDS: APIXABAN 5 MG TAB PO SCH ×2 (08:34→20:33)
[2020-05-16] MEDS: AMOXIC-POT CLAV 875-125MG 1 EACH TAB PO SCH ×2 (08:34→20:33)
[2020-05-16] MEDS: LOSARTAN 25 MG TAB PO SCH (08:34)
[2020-05-16] MEDS: DOXAZOSIN 4 MG TAB PO SCH (08:34)
[2020-05-16] MEDS: atenoloL 50 MG TAB PO SCH ×2 (08:34→20:33)
[2020-05-16] MEDS: amLODIPine 5 MG TAB PO SCH (08:34)
[2020-05-16] MEDS: PANTOPRAZOLE 40 MG/10 ML VIAL IV SCH (08:35)
[2020-05-16] MEDS: CLOTRIMAZOLE 1% CREAM 15 GM TUBE TOPICAL SCH ×2 (08:35→20:43)
[2020-05-16] MEDS: POTASSIUM CHLORIDE 10 MEQ in WATER FOR INJECTION 1 100ML.BAG IVPB SCH ×4 (10:39→14:54)
[2020-05-16 10:47] LABS: African American GFR (CKD) 97.1 (60.0-200.0); Albumin 3.2 g/dL (3.80-4.90); Albumin/Globulin Ratio 2.29 (1.60-3.17); Anion Gap 9.1 mmol/L (4.00-12.00); BUN/Creat Ratio 18.75 Ratio (12.00-20.00); Calcium 7.9 mg/dL (8.7-10.3); Carbon Dioxide 26.9 mmol/L (21.6-31.8); Globulin 1.4 g/dL (1.6-3.3); Non-African American GFR(CKD) 83.8 (60.0-200.0); Potassium 3.4 mmol/L (3.5-5.5); Total Bilirubin 1.9 mg/dL (0.2-1.2); Total Protein 4.6 g/dL (6.2-8.2)
--- NOTE | 2020-05-16 13:42 | P.PN ---
Subjective Progress Note Date: 05/16/20 Patient seen and examined at bedside. Feeling much better. Tolerating diet. Denies nausea vomiting. Passing flatus. No bowel movement yet. Objective - Vital Signs Vital signs: Vital Signs Temp 97.7 F 05/16/20 08:00 Pulse 64 05/16/20 11:13 Resp 20 05/16/20 08:00 BP 157/78 05/16/20 08:00 Pulse Ox 93 L 05/16/20 08:00 Intake & Output 05/15/20 05/16/20 05/16/20 18:59 06:59 18:59 Intake Total 1780 Output Total 300 Balance 1480 Intake: IV 700 Dextrose 5%-0.45% NaCl 1, 600 000 ml @ 75 mls/hr IV . [id number] MARLENE Rx#:[id number] Piperacillin-Tazobactam 3 100 .375 gm In Sodium Chloride 0.9% 100 ml @ 25 mls/hr IVPB Q8H MARLENE Rx#: [id number] Oral 1080 Output: Urine 300 Other: Voiding Method Urinal # Voids 1 - Constitutional General appearance: Present: cooperative, no acute distress - Gastrointestinal Gastrointestinal Comment(s): Soft, nontender, nondistended, no rebound, no guarding, left groin incision clean, dry and intact with some surrounding ecchymosis - Labs CBC & Chem 7: 05/16/20 05:48 05/16/20 05:48 Labs: Abnormal Lab Results - Last 24 Hours (Table) 05/16/20 05/16/20 Range/Units 05:48 05:48 Plt Count 148 L (150-450) k/uL Neutrophils # 8.4 H (1.3-7.7) k/uL Lymphocytes # 0.5 L (1.0-4.8) k/uL Potassium 3.4 L (3.5-5.5) mmol/L Glucose 124 H (70-110) mg/dL Calcium 7.9 L (8.7-10.3) mg/dL Total Bilirubin 1.9 H (0.2-1.2) mg/dL Total Protein 4.6 L (6.2-8.2) g/dL Albumin 3.20 L (3.80-4.90) g/dL Globulin 1.4 L (1.6-3.3) g/dL Assessment and Plan Plan: Postoperative day #4, repair of incarcerated left inguinal hernia causing small bowel obstruction - Patient is having flatus, awaiting further bowel function. Advance to soft diet - Continue pain control, as necessary - CXR with bilateral infiltrates, internal medicine, pulmonology evaluation - Cardiology consultation appreciated - Anticoagulation restarted - Progressing slowly, continue medical management - Likely discharge in 24 hours
--- NOTE | 2020-05-16 14:01 | P.PN ---
Subjective Progress Note Date: 05/16/20 Principal diagnosis: Aspiration pneumonia 80-year-old white male patient of was admitted to the hospital on 05/11/2020 when he came in today hospital for evaluation of increased abdominal pain, no bowel movements for several days, and computed tomography scan of the abdomen and pelvis showed incarcerated left inguinal hernia with small bowel obstruction. Patient underwent left incarcerated inguinal hernia repair on 05/12/2020. Patient had a NG tube placed for significant abdominal distention, decompression. Patient had episode of atrial fibrillation with RVR, currently heart rate is better controlled. Patient developed worsening hypoxia, chest x- ray was obtained showing diffuse right perihilar infiltrates with the suspicion for aspiration pneumonia. Patient is on 4 L of oxygen and pulse ox is 93%, he sounds very wheezy and congested on physical exam, he is not able to bring up any sputum he is complaining of cough, but no chest pain, his been afebrile, hemodynamically stable, no altered mentation, he is up in the recliner, awake and oriented 3, and started on Levaquin and Zosyn for empiric antibiotic coverage, NG tube has been discontinued, he remains on IV fluids at 0.9 normal saline 25 ML per hour, he was given a dose of IV Lasix earlier for an episode of increased shortness of breath. On 05/15/2020 patient seen in follow-up on medical floor, she is breathing comfortably, appears to be in no acute distress, his breathing is improving although still has some coarse breath sounds with diffuse rhonchi. He is on 3 L of oxygen pulse ox of 94%, his been afebrile, blood pressure has been stable, he is on Zosyn for empiric antibiotic coverage for possibility of aspiration pneumonia, he states his breathing easier, no complaint of chest pain no hemoptysis. No nausea or vomiting, his labs have been reviewed, showing white blood cell count down to 9.3, hemoglobin is 13.1, sodium is 142, potassium is 3.4, chloride is 107, B1 of 24, creatinine 0.9. No altered mentation, abdomen is soft, nontender, patient is tolerating full liquid diet 05/16/2020 patient seen in follow-up on the regular medical surgical floor, he is in the recliner, appears to be in no acute distress, breathing comfortably, less wheezy and congested on today's exam. No acute events overnight, his been afebrile. Dynamically stable, he is on 2 L of oxygen his pulse ox of 93%, follow-up chest x-ray has been reviewed showing right lung infiltrates, multifocal, and left basilar acute infiltrate. Clinically patient is stable, no hemoptysis, he is on Zosyn for antibiotic coverage, labs have been reviewed, white blood cell count is 9.9, hemoglobin is 13.6, potassium 3.4, the rest of the electrolytes and renal profile were unremarkable. Objective - Vital Signs Vital signs: Vital Signs Temp 97.7 F 05/16/20 08:00 Pulse 64 05/16/20 11:13 Resp 20 05/16/20 08:00 BP 157/78 05/16/20 08:00 Pulse Ox 93 L 05/16/20 08:00 Intake & Output 05/15/20 05/16/20 05/16/20 18:59 06:59 18:59 Intake Total 1780 Output Total 300 Balance 1480 Intake: IV 700 Dextrose 5%-0.45% NaCl 1, 600 000 ml @ 75 mls/hr IV . [id number] MARLENE Rx#:[id number] Piperacillin-Tazobactam 3 100 .375 gm In Sodium Chloride 0.9% 100 ml @ 25 mls/hr IVPB Q8H MARLENE Rx#: [id number] Oral 1080 Output: Urine 300 Other: Voiding Method Urinal # Voids 1 - Exam GENERAL EXAM: Alert, very pleasant, hard of hearing, 80-year-old white male, on 2 L of oxygen, pulse oximetry 94% comfortable in no apparent distress. HEAD: Normocephalic/atraumatic. EYES: Normal reaction of pupils, equal size. Conjunctiva pink, sclera white. NOSE: Clear with pink turbinates. THROAT: No erythema or exudates. NECK: No masses, no JVD, no thyroid enlargement, no adenopathy. CHEST: No chest wall deformity. Symmetrical expansion. LUNGS: Equal air entry wheezing, no rhonchi CVS: Regular rate and rhythm, normal S1 and S2, no gallops, no murmurs, no rubs ABDOMEN: Soft, nontender. No hepatosplenomegaly, normal bowel sounds, no guarding or rigidity. EXTREMITIES: No clubbing, no edema, no cyanosis, 2+ pulses and upper and lower extremities. MUSCULOSKELETAL: Muscle strength and tone normal. SPINE: No scoliosis or deformity SKIN: No rashes CENTRAL NERVOUS SYSTEM: Alert and oriented -3. No focal deficits, tone is normal in all 4 extremities. PSYCHIATRIC: Alert and oriented -3. Appropriate affect. Intact judgment and insight. - Labs CBC & Chem 7: 05/16/20 05:48 05/16/20 05:48 Labs: Abnormal Lab Results - Last 24 Hours (Table) 05/16/20 05/16/20 Range/Units 05:48 05:48 Plt Count 148 L (150-450) k/uL Neutrophils # 8.4 H (1.3-7.7) k/uL Lymphocytes # 0.5 L (1.0-4.8) k/uL Potassium 3.4 L (3.5-5.5) mmol/L Glucose 124 H (70-110) mg/dL Calcium 7.9 L (8.7-10.3) mg/dL Total Bilirubin 1.9 H (0.2-1.2) mg/dL Total Protein 4.6 L (6.2-8.2) g/dL Albumin 3.20 L (3.80-4.90) g/dL Globulin 1.4 L (1.6-3.3) g/dL Assessment and Plan Plan: Assessment: #1. Acute hypoxic respiratory failure related to right lung pneumonia, possibly aspiration related #2. Incarcerated left inguinal hernia containing small bowel and large bowel, status post surgical repair, postoperative day #4 #3. Small bowel obstruction related to the above, improved after surgical repair, NG tube has been discontinued this morning #4. Chronic A. fib, Eliquis has been resumed today. Patient had episode of rapid ventricular response, currently better controlled #5. Hypertension #6. Hyperlipidemia #7. History of CAD with previous PCI and stenting and previous history of bypass grafting #8. BPH #9. Hard of hearing Plan: Follow-up chest x-ray has been reviewed showing multifocal right lung infiltrates, patient is stable, no fever or chills, continue weaning FiO2, continue current antibiotic coverage, continue nebulized bronchodilators. If he continues to be stable, patient can be considered for discharge home once cleared by surgery and medicine. outpatient follow up with Dr. Mckee in 7-10 days I performed a history & physical examination of the patient and discussed their management with my nurse practitioner, Mariam Oh. I reviewed the nurse practitioner's note and agree with the documented findings and plan of care. Lung sounds are positive for diffuse rhonchi and wheezes. The findings and the impression was discussed with the patient. I attest to the documentation by the nurse practitioner. Time with Patient: Less than 30
[2020-05-16] MEDS: PRAVASTATIN SODIUM 40 MG TAB PO SCH (20:33)
[2020-05-17] MEDS: IPRATROPIUM-ALBUTEROL 3 ML NEB INHALATION SCH ×3 (03:52→11:11)
[2020-05-17] MEDS: PANTOPRAZOLE 40 MG/10 ML VIAL IV SCH (07:36)
[2020-05-17] MEDS: DOXAZOSIN 4 MG TAB PO SCH (07:41)
[2020-05-17] MEDS: AMOXIC-POT CLAV 875-125MG 1 EACH TAB PO SCH (07:41)
[2020-05-17] MEDS: CLOTRIMAZOLE 1% CREAM 15 GM TUBE TOPICAL SCH (07:41)
[2020-05-17] MEDS: amLODIPine 5 MG TAB PO SCH (07:41)
[2020-05-17] MEDS: APIXABAN 5 MG TAB PO SCH (07:41)
[2020-05-17] MEDS: LOSARTAN 25 MG TAB PO SCH (07:41)
[2020-05-17] MEDS: atenoloL 50 MG TAB PO SCH (07:41)
[2020-05-17 09:44] VITALS: BP 147/82; RESP 20; TEMP 98
[2020-05-17 11:16] LABS: African American GFR (CKD) 97.1 (60.0-200.0); Anion Gap 7.7 mmol/L (4.00-12.00); BUN/Creat Ratio 16.25 Ratio (12.00-20.00); Carbon Dioxide 26.3 mmol/L (21.6-31.8); Non-African American GFR(CKD) 83.8 (60.0-200.0); Potassium 3.4 mmol/L (3.5-5.5)
[2020-05-17 12:10] VITALS: PULSE 68
--- NOTE | 2020-05-17 12:26 | P.DS ---
Providers Date of admission: 05/12/20 01:00 Attending physician: Michael Aguiar DO Consults: 05/12/20 00:59 Consult Physician Routine Consulting Provider: Isaiah Haley Consult Reason/Comments: known Do you want consulting provider notified?: Yes 05/13/20 08:34 Consult Physician Routine Consulting Provider: JuanC arlos Leggett Consult Reason/Comments: AFib Do you want consulting provider notified?: Already Contacted 05/14/20 12:00 Consult Physician Routine Consulting Provider: Solomon Mckee Consult Reason/Comments: Right pneumonia Do you want consulting provider notified?: Yes Primary care physician: Isaiah Haley Hospital Course: 80-year-old male presented to the emergency department with complaints of nausea vomiting and abdominal distention. He was found to have an incarcerated left inguinal hernia with small bowel obstruction. He was taken to the operating room for repair of this incarcerated hernia and reduction of the small bowel. Postoperatively, he improved throughout his admission. He was diagnosed with pneumonia and was treated by pulmonology and internal medicine with antibiotics and oxygen therapy. At this point, he is medically stable per discharge after discussing with internal medicine. He is also surgically stable for discharge. He is requesting no pain medication. Procedures: Left inguinal hernia repair Patient Condition at Discharge: Fair Plan - Discharge Summary Discharge Rx Participant: Yes New Discharge Prescriptions: New Amoxic-Pot Clav 875-125Mg [Augmentin 875-125] 1 each PO Q12HR #20 tab Continue Terazosin [Hytrin] 5 mg PO DAILY Pravastatin Sodium [Pravachol] 40 mg PO HS Losartan [Cozaar] 25 mg PO DAILY Apixaban [Eliquis] 5 mg PO BID Atenolol [Tenormin] 50 mg PO BID amLODIPine [Norvasc] 5 mg PO DAILY Econazole 1% Cream [Spectazole] 1 applic TOPICAL BID Discharge Medication List Apixaban [Eliquis] 5 mg PO BID 07/21/17 [History] Losartan [Cozaar] 25 mg PO DAILY 07/21/17 [History] Pravastatin Sodium [Pravachol] 40 mg PO HS 07/21/17 [History] Terazosin [Hytrin] 5 mg PO DAILY 07/21/17 [History] Atenolol [Tenormin] 50 mg PO BID 08/26/18 [History] Econazole 1% Cream [Spectazole] 1 applic TOPICAL BID 05/12/20 [History] amLODIPine [Norvasc] 5 mg PO DAILY 05/12/20 [History] Amoxic-Pot Clav 875-125Mg [Augmentin 875-125] 1 each PO Q12HR #20 tab 05/17/20 [Rx] Follow up Appointment(s)/Referral(s): Isaiah Haley MD [Primary Care Provider] - 05/21/20 9:45 am Solomon Mckee DO [Doctor of Osteopathic Medicine] - 06/10/20 1:00 pm Michael Aguiar DO [Doctor of Osteopathic Medicine] - 2 Weeks Juan Carlos Leggett MD [STAFF PHYSICIAN] - 05/31/20 11:30 am Patient Instructions/Handouts: Inguinal Hernia (DC), Community Acquired Pneumonia (DC) Discharge Disposition: HOME SELF-CARE
[2020-05-17 14:12] VITALS: BMI 26.6
--- NOTE | 2020-05-17 14:27 | P.PN ---
Subjective Progress Note Date: 05/17/20 Principal diagnosis: Aspiration pneumonia 80-year-old white male patient of was admitted to the hospital on 05/11/2020 when he came in today hospital for evaluation of increased abdominal pain, no bowel movements for several days, and computed tomography scan of the abdomen and pelvis showed incarcerated left inguinal hernia with small bowel obstruction. Patient underwent left incarcerated inguinal hernia repair on 05/12/2020. Patient had a NG tube placed for significant abdominal distention, decompression. Patient had episode of atrial fibrillation with RVR, currently heart rate is better controlled. Patient developed worsening hypoxia, chest x- ray was obtained showing diffuse right perihilar infiltrates with the suspicion for aspiration pneumonia. Patient is on 4 L of oxygen and pulse ox is 93%, he sounds very wheezy and congested on physical exam, he is not able to bring up any sputum he is complaining of cough, but no chest pain, his been afebrile, hemodynamically stable, no altered mentation, he is up in the recliner, awake and oriented 3, and started on Levaquin and Zosyn for empiric antibiotic coverage, NG tube has been discontinued, he remains on IV fluids at 0.9 normal saline 25 ML per hour, he was given a dose of IV Lasix earlier for an episode of increased shortness of breath. On 05/15/2020 patient seen in follow-up on medical floor, she is breathing comfortably, appears to be in no acute distress, his breathing is improving although still has some coarse breath sounds with diffuse rhonchi. He is on 3 L of oxygen pulse ox of 94%, his been afebrile, blood pressure has been stable, he is on Zosyn for empiric antibiotic coverage for possibility of aspiration pneumonia, he states his breathing easier, no complaint of chest pain no hemoptysis. No nausea or vomiting, his labs have been reviewed, showing white blood cell count down to 9.3, hemoglobin is 13.1, sodium is 142, potassium is 3.4, chloride is 107, B1 of 24, creatinine 0.9. No altered mentation, abdomen is soft, nontender, patient is tolerating full liquid diet 05/16/2020 patient seen in follow-up on the regular medical surgical floor, he is in the recliner, appears to be in no acute distress, breathing comfortably, less wheezy and congested on today's exam. No acute events overnight, his been afebrile. Dynamically stable, he is on 2 L of oxygen his pulse ox of 93%, follow-up chest x-ray has been reviewed showing right lung infiltrates, multifocal, and left basilar acute infiltrate. Clinically patient is stable, no hemoptysis, he is on Zosyn for antibiotic coverage, labs have been reviewed, white blood cell count is 9.9, hemoglobin is 13.6, potassium 3.4, the rest of the electrolytes and renal profile were unremarkable. On 05/17/2020 patient seen in follow-up on medical floor, he is sitting in bed, currently receiving breathing treatment, on 2 L of oxygen is pulse ox was 93%, room air pulse ox at rest was 90%, and with exercise was 90%, patient did not qualify for home oxygen, no fever or chills, he remains on Augmentin for aspiration pneumonia, follow-up chest x-ray showed persistent cardiomegaly with multifocal right lung infiltrates and left basilar acute infiltrates. Clinically patient has been stable, patient is tolerating oral diet, no nausea or vomiting, no abdominal pain. Objective - Vital Signs Vital signs: Vital Signs Temp 98.0 F 05/17/20 08:00 Pulse 68 05/17/20 12:09 Resp 20 05/17/20 08:00 BP 147/82 05/17/20 08:00 Pulse Ox 90 L 05/17/20 12:09 Intake & Output 05/16/20 05/17/20 05/17/20 18:59 06:59 18:59 Intake Total 400 250 Balance 400 250 Weight 81.647 kg Intake: IV 400 Potassium Chloride 10 meq 400 In Water For Injection 1 100ml.bag @ 100 mls/hr IVPB Q1HR [facility] Rx#: [id number] Oral 250 Other: Voiding Method Urinal Urinal # Voids 3 5 - Exam GENERAL EXAM: Alert, very pleasant, hard of hearing, 80-year-old white male, on 2 L of oxygen, pulse oximetry 93% comfortable in no apparent distress. HEAD: Normocephalic/atraumatic. EYES: Normal reaction of pupils, equal size. Conjunctiva pink, sclera white. NOSE: Clear with pink turbinates. THROAT: No erythema or exudates. NECK: No masses, no JVD, no thyroid enlargement, no adenopathy. CHEST: No chest wall deformity. Symmetrical expansion. LUNGS: Equal air entry wheezing, no rhonchi CVS: Regular rate and rhythm, normal S1 and S2, no gallops, no murmurs, no rubs ABDOMEN: Soft, nontender. No hepatosplenomegaly, normal bowel sounds, no guarding or rigidity. EXTREMITIES: No clubbing, no edema, no cyanosis, 2+ pulses and upper and lower extremities. MUSCULOSKELETAL: Muscle strength and tone normal. SPINE: No scoliosis or deformity SKIN: No rashes CENTRAL NERVOUS SYSTEM: Alert and oriented -3. No focal deficits, tone is normal in all 4 extremities. PSYCHIATRIC: Alert and oriented -3. Appropriate affect. Intact judgment and insight. - Labs CBC & Chem 7: 05/16/20 05:48 05/17/20 06:37 Labs: Abnormal Lab Results - Last 24 Hours (Table) 05/17/20 Range/Units 06:37 Potassium 3.4 L (3.5-5.5) mmol/L Calcium 8.0 L (8.7-10.3) mg/dL Assessment and Plan Plan: Assessment: #1. Acute hypoxic respiratory failure related to right lung pneumonia, possibly aspiration related #2. Incarcerated left inguinal hernia containing small bowel and large bowel, status post surgical repair, postoperative day #5 #3. Small bowel obstruction related to the above, improved after surgical repair, NG tube has been discontinued this morning #4. Chronic A. fib, Eliquis has been resumed today. Patient had episode of ra pid ventricular response, currently better controlled #5. Hypertension #6. Hyperlipidemia #7. History of CAD with previous PCI and stenting and previous history of bypass grafting #8. BPH #9. Hard of hearing Plan: Patient has been stable overnight, no fever or chills, no worsening dyspnea, no increased cough, or congestion, from pulmonary perspective patient is stable for discharge home on oral Augmentin, and breathing treatments. Patient did not qualify for home oxygen. She will need outpatient follow-up with Dr. Mckee in the office in 1 to 2 weeks I performed a history & physical examination of the patient and discussed their management with my nurse practitioner, Mariam Oh. I reviewed the nurse practitioner's note and agree with the documented findings and plan of care. Lung sounds are positive for diffuse rhonchi and wheezes. The findings and the impression was discussed with the patient. I attest to the documentation by the nurse practitioner. Time with Patient: Less than 30
--- NOTE | 2020-05-17 14:46 | P.PN ---
Subjective Progress Note Date: 05/16/20 This is an 80 year old male with a previous medical history significant for CAD post CABG 14 years ago with PCI, hypertension and hypertensive cardiovascular disease, hyperlipidemia, BPH, chronic atrial fibrillation, known to have left inguinal hernia for a long time presented to the ER at [facility] for increased abdominal pain for the past few days and no bowel movement, had a CT scan of the abdomen and pelvis that showed incarcertaed left nguinal hernia with small bowel obstruction and was admitted to surgery and medical consultation was placed for nv. 05/13/20: Patient underwent left incarcerated inguinal hernia, he appears a little better today, he had an NG tube placed in the OR yesterday because of significant abdominal distention and he had almost a liter of biliary stuff coming out, he went into atrial fibrillation with rapid ventricular response during induction anesthesia, he is currently in atrial progression with controlled rate. Consultation was obtained, he is maintained on nothing per mouth for now for another 24 hours, he denies any chest pain, shortness breath, he does appear to have some hiccups, he denies any abdominal pain, his pain in the left inguinal area appears to be controlled. 05/14: Patient is postop day #2 for repair of incarcerated left inguinal hernia repair causing small bowel obstruction. Chest x-ray from yesterday reveals diffuse right infiltrates. Repeat x-ray today reveals the same stable. Consult added for Dr. Mckee for pneumonia. Patient is passing gas. He denies having any nausea or vomiting. No abdominal pain. No bowel movement. Repeat blood work reveals WBC 10.8, hemoglobin 13.2, platelet count 127. Sodium 144, potassium 3.3, chloride 114, CO2 26.2, BUN 38 creatinine 0.8. Blood sugar 110. Patient to start clear liquid diet. The patient is followed by Dr. Easley for permanent atrial fibrillation. Patient has been cleared to resume anticoagulation tomorrow from Dr. Aguiar. 05/15: Patient is postop day #3. He has been afebrile, heart rate 50, blood pressure 149/86, pulse ox 94% on 2 L nasal cannula. Patient is covered for possible aspiration pneumonia with Zosyn. He denies having any chest pain, hardik athing status is improving. No nausea or vomiting. He is tolerating a full liquid diet. He is passing gas but no bowel movement. No abdominal pain. WBC 9.3, hemoglobin 13.1, sodium 142, potassium 3.4, chloride 107, BUN 24, creatinine 0.9. Potassium has been replaced. Patient resumed eliquis this morning. 05/16: Patient is doing well postoperatively. He unfortunately has not had a bowel movement yet. He is passing gas and feels hungry. He is tolerating a full liquid diet documented in advancing to low fiber. No nausea or vomiting. No fevers or chills. Patient is reaching incentive spirometry of 2000 mL. he is on Augmentin for possible aspiration pneumonia. Potassium 3.4 and will be replaced. Patient has ambulated and done well in the hallway with recommendations for home with home care. Objective - Vital Signs Vital signs: Vital Signs Temp 97.6 F 05/16/20 02:30 Pulse 71 05/16/20 03:29 Resp 18 05/15/20 20:00 BP 160/89 05/16/20 02:30 Pulse Ox 93 L 05/16/20 02:30 Intake & Output 05/15/20 05/15/20 05/16/20 06:59 18:59 06:59 Intake Total 1780 Output Total 700 300 Balance -700 1480 Intake: IV 700 Dextrose 5%-0.45% NaCl 1, 600 000 ml @ 75 mls/hr IV . [id number] [facility] Rx#:[id number] Piperacillin-Tazobactam 3 100 .375 gm In Sodium Chloride 0.9% 100 ml @ 25 mls/hr IVPB Q8H [facility] Rx#: [id number] Oral 1080 Output: Urine 700 300 Other: Voiding Method Urinal # Voids 1 3 - Exam - Exam Review of Systems Constitutional: Denies anorexia, Denies fatigue, Denies fever, Denies lethargy, Denies weakness Eyes: denies blurred vision, denies bulging eye Ears, nose, mouth and throat: Denies epistaxis, Denies neck lump, Denies sore throat Cardiovascular: Denies chest pain, Denies decreased exercise tolerance, Denies dyspnea on exertion, Denies lightheadedness, Denies rapid heart beat, Denies shortness of breath, Denies syncope Respiratory: Denies congestion, Denies cough with sputum, Denies home oxygen, Denies sleep apnea, Denies snoring, Denies wheezing Gastrointestinal: Denies abdominal pain, Reports constipation, Reports loss of appetite, denies nausea, denies vomiting, Denies heartburn, Denies melena Musculoskeletal: Denies myalgias Musculoskeletal: absent: ankle pain, ankle stiffness, ankle swelling, elbow pain, elbow stiffness, elbow swelling, foot pain, foot stiffness, foot swelling, hand pain, hand stiffness, hand swelling, hip pain, hip stiffness, hip swelling, knee pain, knee stiffness, knee swelling, shoulder pain, shoulder stiffness, shoulder swelling, wrist pain, wrist stiffness Integumentary: Denies pruritus, Denies rash Neurological: Denies numbness, Denies weakness Psychiatric: Denies anxiety, Denies depression Endocrine: Denies fatigue, Denies weight change Physical examination: HEENT: head is atraumatic nomocephalic pupils were equal round reactive to light and accommodations extra ocular muscle movements were intact. Neck: supple no JVP. Chest: decreased breath sounds at the bases with a few ronchi, no expiratory wheezes, intercostal retractions. Heart: first heart sound is depressed, second heart sound is normal irregularly irregular, there is KRISTIN 2/6 located at the left sternal border. Abdomen: soft, non-distended, no tenderness no guarding. Surgical wound clean and dry. Neurologic examination: awake alert and oriented X3 CN II-XII are grossly intact, muscle power 4/5 in upper and lower extremities bilaterally, Deep tendon reflexes were depressed bilaterally. - Labs CBC & Chem 7: 05/16/20 05:48 05/17/20 06:37 Labs: Abnormal Lab Results - Last 24 Hours (Table) 05/15/20 05/15/20 Range/Units 05:33 05:33 Hct 38.9 L (39.0-53.0) % Plt Count 137 L (150-450) k/uL Neutrophils # 8.3 H (1.3-7.7) k/uL Lymphocytes # 0.4 L (1.0-4.8) k/uL Potassium 3.4 L (3.5-5.5) mmol/L BUN/Creatinine Ratio 26.67 H (12.00-20.00) Ratio Glucose 115 H (70-110) mg/dL Calcium 7.8 L (8.7-10.3) mg/dL Total Bilirubin 1.8 H (0.2-1.2) mg/dL Total Protein 4.4 L (6.2-8.2) g/dL Albumin 3.00 L (3.80-4.90) g/dL Globulin 1.4 L (1.6-3.3) g/dL Assessment and Plan Assessment: Assessment and Plan Plan: 1. Postoperative day #4 status post Acute incarcerated left inguinal hernia with resultant small bowel obstruction. patient tolerating clear liquids, continue with the current management, IV fluid, continue antiemetics, patient is being followed by general surgery. Tolerating full liquids to be advanced to 2. Acute small bowel obstruction due to incarcerated left inguinla hernia. we will continue with IVF, and surgery, we will continue with pain control and Zofran. 3. Leukocytosis due to small bowel obstruction and incarcerated left inguinal hernia. we will continue to monitor and continue Zosyn . 4. CAD post CABG and PCI with stent placement. we will continue with Atenolol 50 mg orally bid and ASA 81 mg orally daily along with Pravastatin 40 mg orally daily. 5. Hypertension and hypertensive cardiovascular disease. we will continue with Losartan 12.5 mg orally daily, Amlodipine 10 mg orally daily and Atenolol 50 mg orally bid. 6. Hyperlipidemia. we will continue with Pravastatin 40 mg orally daily.' 7. Persistent Atrial fibrillation. we will continue with Atenolol 50 mg orally bid. Patient resumed on eliquis. 8. BPH. we will continue with Terazosin 5 mg orally daily. 9. DVT prophylaxis. Eliquis and bilateral knee-high bette hose. 10. GI prophylaxis. we will continue with PPI. 12. Aspiration pneumonia. Patient started on DuoNeb treatments every 4 hours, we will switch to Augmentin and we will check CXR and patient can be discharged today. Discharge plan: Home without home care today if ok with Pulmonary and surgery.
== END 2020-05-17 14:43 | disposition home or self-care (01) | DRG 350 ==
LOC: EC 23:01 → 4SSUR 05-12 01:00
PROVIDERS: ADMIT Surgery; ATTEND Surgery
PROC: 0D9670Z Drainage of Stomach with Drainage Device, Via Natural or Artificial Opening (ICD-10-PCS; principal; 2020-05-12 11:00)
PROC: 0YQ60ZZ Repair Left Inguinal Region, Open Approach (ICD-10-PCS; principal; 2020-05-12 11:00)
DX: K40.30 Unilateral inguinal hernia, with obstruction, without gangrene, not specified as recurrent (principal); J69.0 Pneumonitis due to inhalation of food and vomit; J96.01 Acute respiratory failure with hypoxia; I48.21 Permanent atrial fibrillation; I50.22 Chronic systolic (congestive) heart failure; J98.11 Atelectasis; I11.0 Hypertensive heart disease with heart failure; I08.1 Rheumatic disorders of both mitral and tricuspid valves; I25.10 Atherosclerotic heart disease of native coronary artery without angina pectoris; E87.6 Hypokalemia; N40.0 Benign prostatic hyperplasia without lower urinary tract symptoms; K20.90 Esophagitis, unspecified without bleeding; E78.5 Hyperlipidemia, unspecified; I25.2 Old myocardial infarction; H91.90 Unspecified hearing loss, unspecified ear; M19.90 Unspecified osteoarthritis, unspecified site; Z79.01 Long term (current) use of anticoagulants; Z79.899 Other long term (current) drug therapy; Z95.1 Presence of aortocoronary bypass graft; Z95.5 Presence of coronary angioplasty implant and graft; Z86.79 Personal history of other diseases of the circulatory system; Z96.641 Presence of right artificial hip joint; Z82.49 Family history of ischemic heart disease and other diseases of the circulatory system; Z83.79 Family history of other diseases of the digestive system
CPT/HCPCS: 36415; 71045; 71046; 74177; 80048; 80053; 81001; 82150; 82550; 83605; 83690; 83735; 84100; 84484; 85025; 88302; 93005; 94640; 94760; 96361; 96374; 96375; 99285

== ENCOUNTER 2020-06-07 17:52 | Emergency (ER) | payer MEDICARE, BC ==
[2020-06-07 17:57] VITALS: BP 150/87; PULSE 69; RESP 18; TEMP 98.1
--- NOTE | 2020-06-07 18:25 | ED ---
General Adult HPI - General Chief complaint: Abdominal Pain Stated complaint: post surgery swelling Time Seen by Provider: 06/07/20 18:02 Source: patient, RN notes reviewed, old records reviewed Mode of arrival: ambulatory Limitations: no limitations - History of Present Illness Initial comments: 80-year-old male presenting with pain and swelling in the right groin. Patient's symptoms began over today. Noticed about a basketball sized swelling in his right groin. He had hernia repair On the left inguinal hernia approximately 2 weeks ago. He's had no postoperative issues with that. He did state that today he had a bowel movement. No vomiting. Minimal pain which is currently resolved. He states that all his symptoms are completely resolved. His had contacted the surgeon on-call who requested the patient be seen in the emergency department. He has no abdominal pain, no vomiting, normal bowel movements today. No fever - Related Data Home Medications Medication Instructions Recorded Confirmed Apixaban [Eliquis] 5 mg PO BID 07/21/17 05/12/20 Losartan [Cozaar] 25 mg PO DAILY 07/21/17 05/12/20 Pravastatin Sodium [Pravachol] 40 mg PO HS 07/21/17 05/12/20 Terazosin [Hytrin] 5 mg PO DAILY 07/21/17 05/12/20 Atenolol [Tenormin] 50 mg PO BID 08/26/18 05/12/20 Econazole 1% Cream [Spectazole] 1 applic TOPICAL BID 05/12/20 05/12/20 amLODIPine [Norvasc] 5 mg PO DAILY 05/12/20 05/12/20 Previous Rx's Medication Instructions Recorded Amoxic-Pot Clav 875-125Mg 1 each PO Q12HR #20 tab 05/17/20 [Augmentin 875-125] Allergies Allergy/AdvReac Type Severity Reaction Status Date / Time No Known Allergies Allergy Verified 06/07/20 17:57 Review of Systems ROS Statement: Those systems with pertinent positive or pertinent negative responses have been documented in the HPI. ROS Other: All systems not noted in ROS Statement are negative. Past Medical History Past Medical History: Atrial Fibrillation, Coronary Artery Disease (CAD), Hyperlipidemia, Hypertension, Myocardial Infarction (NV), Osteoarthritis (OA), Prostate Disorder Last Myocardial Infarction Date:: unknown History of Any Multi-Drug Resistant Organisms: None Reported Past Surgical History: Coronary Bypass/CABG, Heart Catheterization With Stent, Hernia Repair, Orthopedic Surgery Additional Past Surgical History / Comment(s): triple bypass 14 years ago, aortic aneurysm repair, TRHA Past Anesthesia/Blood Transfusion Reactions: No Reported Reaction Date of Last Stent Placement:: unknown Past Psychological History: No Psychological Hx Reported Smoking Status: Never smoker Past Alcohol Use History: Rare Past Drug Use History: None Reported - Past Family History Mother Family Medical History: Liver Disease (Mother at the age of 78 form liver cirrhosis) Father Family Medical History: Congestive Heart Failure (CHF) (Father at the age of 78 from CHF.), Hypertension Additional Family Medical History / Comment(s): Patient states that his parents never went to the doctor. He thinks his father of hypertensive disease. He does not know much about his mother. Denies any significant medical history in siblings, is and has kids with no significant medical. lives of at home. Brother(s) Family Medical History: No Reported History (patient has one brother no major issues.) Sister(s) Family Medical History: No Reported History (patient has 2 sisters no major medical problems) Son(s) Family Medical History: No Reported History (patient has 2 sons ok.) Daughter(s) Family Medical History: No Reported History (one daughter ok.) General Exam Limitations: no limitations General appearance: alert, in no apparent distress Head exam: Present: atraumatic, normocephalic Eye exam: Present: normal appearance, PERRL ENT exam: Present: normal exam Neck exam: Present: normal inspection. Absent: tenderness, meningismus Respiratory exam: Present: normal lung sounds bilaterally. Absent: respiratory distress, wheezes Cardiovascular Exam: Present: regular rate, normal rhythm GI/Abdominal exam: Present: soft, hernia (Right inguinal hernia, soft, reducible). Absent: distended, tenderness, guarding, rebound Extremities exam: Present: normal inspection, normal capillary refill Neurological exam: Present: alert, oriented X3, CN II-XII intact. Absent: motor sensory deficit Psychiatric exam: Present: normal affect, normal mood Skin exam: Present: warm, dry, intact, other (Left inguinal hernia incision clean dry and intact, well-healed). Absent: cyanosis, diaphoretic Course Vital Signs 06/07/20 17:53 Temperature 98.1 F Pulse Rate 69 Respiratory 18 Rate Blood Pressure 150/87 O2 Sat by Pulse 98 Oximetry Medical Decision Making - Medical Decision Making 79-year-old male with right inguinal hernia, patient placed in Trendelenburg, this is easily reduced. There is no tenderness, no erythema. Patient himself has no complaints, did discuss case with Dr. Reece was covering for Dr. Aguiar, Disposition Clinical Impression: Inguinal hernia, right Disposition: HOME SELF-CARE Condition: Good Instructions (If sedation given, give patient instructions): Inguinal Hernia (ED) Additional Instructions: Please return with increased swelling, pain, fever, vomiting, or any worsening symptoms. Please call Dr. Aguiar on Wednesday. Is patient prescribed a controlled substance at d/c from ED?: No Referrals: Isaiah Haley MD [Primary Care Provider] - 1-2 days Michael Aguiar DO [Doctor of Osteopathic Medicine] - 1-2 days Time of Disposition: 18:24
== END 2020-06-07 18:40 | disposition home or self-care (01) ==
LOC: EC 17:52
DX: K40.90 Unilateral inguinal hernia, without obstruction or gangrene, not specified as recurrent (principal); I48.91 Unspecified atrial fibrillation; E78.5 Hyperlipidemia, unspecified; I10 Essential (primary) hypertension; I25.2 Old myocardial infarction; Z79.01 Long term (current) use of anticoagulants; Z79.899 Other long term (current) drug therapy; Z95.5 Presence of coronary angioplasty implant and graft; Z95.1 Presence of aortocoronary bypass graft
CPT/HCPCS: 99284

== ENCOUNTER 2020-06-11 13:27 | Emergency (ER) | payer MEDICARE, BC ==
[2020-06-11 14:03] VITALS: BP 139/82; PULSE 78; RESP 18; TEMP 98.9
[2020-06-11] MEDS ORDERED: SODIUM CHLORIDE 0.9% 1,000 ML IV STA (14:34)
--- NOTE | 2020-06-11 14:38 | ED ---
Abdominal Pain HPI - General Chief Complaint: Abdominal Pain Stated Complaint: Hernia Time Seen by Provider: 06/11/20 14:15 Source: patient, family, RN notes reviewed Mode of arrival: ambulatory Limitations: no limitations - History of Present Illness Initial Comments: Patient is an 80-year-old male who came emergency department complaining of right-sided inguinal hernia. He noted that he was here on Wednesday night and had a small hernia reduced by Dr. Maldonado. He was told to come back if it came back. He did note that today it came back and was fairly large compared to Wednesday. He denied any pain, but he noted that he had not had a bowel movement since this morning when the hernia popped out. She denied any nausea vomiting Chest pain shortness of breath headache fever fatigue chills Patient did state that Dr. Aguiar did fix a left sided inguinal hernia May 12. But was unavailable for consult over the weekend and today. - Related Data Home Medications Medication Instructions Recorded Confirmed Apixaban [Eliquis] 5 mg PO BID 07/21/17 05/12/20 Losartan [Cozaar] 25 mg PO DAILY 07/21/17 05/12/20 Pravastatin Sodium [Pravachol] 40 mg PO HS 07/21/17 05/12/20 Terazosin [Hytrin] 5 mg PO DAILY 07/21/17 05/12/20 Atenolol [Tenormin] 50 mg PO BID 08/26/18 05/12/20 Econazole 1% Cream [Spectazole] 1 applic TOPICAL BID 05/12/20 05/12/20 amLODIPine [Norvasc] 5 mg PO DAILY 05/12/20 05/12/20 Previous Rx's Medication Instructions Recorded Amoxic-Pot Clav 875-125Mg 1 each PO Q12HR #20 tab 05/17/20 [Augmentin 875-125] Allergies Allergy/AdvReac Type Severity Reaction Status Date / Time No Known Allergies Allergy Verified 06/11/20 14:03 Review of Systems ROS Statement: Those systems with pertinent positive or pertinent negative responses have been documented in the HPI. ROS Other: All systems not noted in ROS Statement are negative. Past Medical History Past Medical History: Atrial Fibrillation, Coronary Artery Disease (CAD), Hyperlipidemia, Hypertension, Myocardial Infarction ([place]), Osteoarthritis (OA), Prostate Disorder Last Myocardial Infarction Date:: unknown History of Any Multi-Drug Resistant Organisms: None Reported Past Surgical History: Coronary Bypass/CABG, Heart Catheterization With Stent, Hernia Repair, Orthopedic Surgery Additional Past Surgical History / Comment(s): triple bypass 14 years ago, aortic aneurysm repair, TRHA Past Anesthesia/Blood Transfusion Reactions: No Reported Reaction Date of Last Stent Placement:: unknown Past Psychological History: No Psychological Hx Reported Smoking Status: Never smoker Past Alcohol Use History: Rare Past Drug Use History: None Reported - Past Family History Mother Family Medical History: Liver Disease (Mother at the age of 78 form liver cirrhosis) Father Family Medical History: Congestive Heart Failure (CHF) (Father at the age of 78 from CHF.), Hypertension Additional Family Medical History / Comment(s): Patient states that his parents never went to the doctor. He thinks his father of hypertensive disease. He does not know much about his mother. Denies any significant medical history in siblings, is and has kids with no significant medical. lives of at home. Brother(s) Family Medical History: No Reported History (patient has one brother no major issues.) Sister(s) Family Medical History: No Reported History (patient has 2 sisters no major medical problems) Son(s) Family Medical History: No Reported History (patient has 2 sons ok.) Daughter(s) Family Medical History: No Reported History (one daughter ok.) General Exam Limitations: no limitations General appearance: alert, in no apparent distress Head exam: Present: atraumatic, normocephalic, normal inspection Eye exam: Present: normal appearance, PERRL, EOMI. Absent: scleral icterus, conjunctival injection, periorbital swelling ENT exam: Present: normal exam, mucous membranes moist Neck exam: Present: normal inspection. Absent: tenderness, meningismus, lymphadenopathy Respiratory exam: Present: normal lung sounds bilaterally. Absent: respiratory distress, wheezes, rales, rhonchi, stridor Cardiovascular Exam: Present: regular rate, normal rhythm, normal heart sounds. Absent: systolic murmur, diastolic murmur, rubs, gallop, clicks GI/Abdominal exam: Present: soft, normal bowel sounds, hernia ( inguinal, approximately 7-8 cm x 7 8 cm. Hard and Nonreducible with moderate pressure.). Absent: distended, tenderness, guarding, rebound, rigid Extremities exam: Present: normal inspection, full ROM, normal capillary refill. Absent: tenderness, pedal edema, joint swelling, calf tenderness Neurological exam: Present: alert, oriented X3, CN II-XII intact Psychiatric exam: Present: normal affect, normal mood Skin exam: Present: warm, dry, intact, normal color. Absent: rash Course Vital Signs 06/11/20 13:57 Temperature 98.9 F Pulse Rate 78 Respiratory 18 Rate Blood Pressure 139/82 O2 Sat by Pulse 96 Oximetry Medical Decision Making - Medical Decision Making 80-year-old male complaining of right-sided inguinal hernia that is recurrent. Basic labs ordered: Unremarkable Patient refused pain medication, states that he's been to this before and thinks he will be okay. Hernia reduced well. Case discussed with Dr. Holland also, he recommended that patient get a shot of pain medication and try to reduce the hernia 1 more time. Case discussed with Dr. Hill. - Lab Data Result diagrams: 06/11/20 14:49 06/11/20 14:49 Lab Results 06/11/20 06/11/20 06/11/20 Range/Units 14:49 14:49 14:49 WBC 8.2 (3.8-10.6) k/uL RBC 5.23 (4.30-5.90) m/uL Hgb 15.1 (13.0-17.5) gm/dL Hct 45.3 (39.0-53.0) % MCV 86.6 (80.0-100.0) fL MCH 28.9 (25.0-35.0) pg MCHC 33.3 (31.0-37.0) g/dL RDW 14.0 (11.5-15.5) % Plt Count 163 (150-450) k/uL MPV 9.3 Neutrophils % 81 % Lymphocytes % 9 % Monocytes % 6 % Eosinophils % 2 % Basophils % 0 % Neutrophils # 6.6 (1.3-7.7) k/uL Lymphocytes # 0.8 L (1.0-4.8) k/uL Monocytes # 0.5 (0-1.0) k/uL Eosinophils # 0.2 (0-0.7) k/uL Basophils # 0.0 (0-0.2) k/uL Sodium 138 (137-145) mmol/L Potassium 4.2 (3.5-5.1) mmol/L Chloride 106 (98-107) mmol/L Carbon Dioxide 26 (22-30) mmol/L Anion Gap 6 mmol/L BUN 16 (9-20) mg/dL Creatinine 0.90 (0.66-1.25) mg/dL Est GFR (CKD-EPI)AfAm >90 (>60 ml/min/1.73 sqM) Est GFR (CKD-EPI)NonAf 80 (>60 ml/min/1.73 sqM) Glucose 103 H (74-99) mg/dL Plasma Lactic Acid Minh 0.9 (0.7-2.0) mmol/L Calcium 8.8 (8.4-10.2) mg/dL Total Bilirubin 1.0 (0.2-1.3) mg/dL AST 20 (17-59) U/L ALT 13 (4-49) U/L Alkaline Phosphatase 88 (38-126) U/L Total Protein 5.9 L (6.3-8.2) g/dL Albumin 3.5 (3.5-5.0) g/dL Disposition Clinical Impression: Inguinal hernia Disposition: HOME SELF-CARE Condition: Stable Instructions (If sedation given, give patient instructions): Inguinal Hernia (ED) Additional Instructions: Please return to the Emergency Department if symptoms worsen or any other concerns. Follow-up with surgeon at scheduled appointment tomorrow. Avoid bearing down or increasing abdominal pressure. Take pain medication as needed for any discomfort or pain. Is patient prescribed a controlled substance at d/c from ED?: No Referrals: Isaiah Haley MD [Primary Care Provider] - 1-2 days Michael Aguiar DO [Doctor of Osteopathic Medicine] - 1-2 days Time of Disposition: 16:16
[2020-06-11] MEDS ORDERED: HYDROmorphone 1 MG/ML 1 ML SYRINGE IM STA (14:52)
[2020-06-11 14:58] LABS: Basophils % (A) 0 %; Eosinophils # (A) 0.2 k/uL (0-0.7); Eosinophils % (A) 2 %; HCT 45.3 % (39.0-53.0); HGB 15.1 gm/dL (13.0-17.5); Lymphocytes # (A) 0.8 k/uL (1.0-4.8); Lymphocytes % (A) 9 %; MCH 28.9 pg (25.0-35.0); MCHC 33.3 g/dL (31.0-37.0); MCV 86.6 fL (80.0-100.0); Mean Platelet Volume 9.3; Monocytes # (A) 0.5 k/uL (0-1.0); Monocytes % (A) 6 %; Neutrophils # (A) 6.6 k/uL (1.3-7.7); Neutrophils % (A) 81 %; Platelet Count 163 k/uL (150-450); RBC 5.23 m/uL (4.30-5.90); WBC 8.2 k/uL (3.8-10.6)
[2020-06-11 15:06] LABS: ALT 13 U/L (4-49); AST 20 U/L (17-59); African American GFR (CKD) >90 (>60 ml/min/1.73 sqM); Albumin 3.5 g/dL (3.5-5.0); Alkaline Phosphatase 88 U/L (38-126); Anion Gap 6 mmol/L; Blood Urea Nitrogen 16 mg/dL (9-20); Calcium 8.8 mg/dL (8.4-10.2); Carbon Dioxide 26 mmol/L (22-30); Chloride 106 mmol/L (98-107); Glucose 103 mg/dL (74-99); Non-African American GFR(CKD) 80 (>60 ml/min/1.73 sqM); Potassium 4.2 mmol/L (3.5-5.1); Sodium 138 mmol/L (137-145); Total Protein 5.9 g/dL (6.3-8.2)
== END 2020-06-11 16:43 | disposition home or self-care (01) ==
LOC: EC 13:27
DX: K40.90 Unilateral inguinal hernia, without obstruction or gangrene, not specified as recurrent (principal); I48.91 Unspecified atrial fibrillation; I25.10 Atherosclerotic heart disease of native coronary artery without angina pectoris; I10 Essential (primary) hypertension; E78.5 Hyperlipidemia, unspecified; I25.2 Old myocardial infarction; Z79.01 Long term (current) use of anticoagulants; Z79.899 Other long term (current) drug therapy; Z95.1 Presence of aortocoronary bypass graft; Z95.5 Presence of coronary angioplasty implant and graft
CPT/HCPCS: 36415; 80053; 83605; 85025; 96360; 99284

== ENCOUNTER → 2020-06-13 | Outpatient (CLI) | payer MEDICARE, BC ==
[2020-06-13 08:20] LABS: HCT 48.4 % (39.0-53.0); HGB 15.6 gm/dL (13.0-17.5); MCH 28.1 pg (25.0-35.0); MCHC 32.3 g/dL (31.0-37.0); MCV 87.1 fL (80.0-100.0); Mean Platelet Volume 8.7; Platelet Count 184 k/uL (150-450); RBC 5.55 m/uL (4.30-5.90)
== END | disposition home or self-care (01) ==
LOC: LABPAT 07:44
PROVIDERS: ATTEND Surgery
DX: Z01.812 Encounter for preprocedural laboratory examination (principal); Z20.822 Contact with and (suspected) exposure to COVID-19; Z01.818 Encounter for other preprocedural examination; K40.90 Unilateral inguinal hernia, without obstruction or gangrene, not specified as recurrent
CPT/HCPCS: 86900; 86901; 85027; 86850; 36415; U0003; C9803; U0005

== ENCOUNTER 2020-06-20 08:25 | Day surgery (SDC) | payer MEDICARE, BC ==
[2020-06-17 09:26] VITALS: BMI 25.1
[~2020-06-20 08:25] MED LIST changes: -ACETAMINOPHEN TAB 500 MG TAB PO ONE; +HEPARIN SODIUM,PORCINE 5,000 UNIT/ML 1 ML VIAL SQ PRN; +HYDROmorphone 0.5 MG/0.5 ML SYRINGE IVP PRN; +LACTATED RINGERS 1,000 ML IV SCH; -MORPHINE SULFATE 4 MG/ML SYRINGE IV PRN; +ONDANSETRON 4 MG/2 ML VIAL IVP ONE; -ROPIVACAINE 246.25 MG, EPINEPHrine 0.5 MG, KETOROLAC 30 MG, cloNIDine HCL/PF 80 MCG, WA... MISCELLANE ONE; -TRANEXAMIC ACID 1,000 MG in SODIUM CHLORIDE 0.9% 50 ML IVPB ONE; -ceFAZolin IN SWFI 2 GM/20 ML SYRINGE IVP ONE
[2020-06-20] MEDS ORDERED: MIDAZOLAM 2 MG/2 ML VIAL IV ONE (10:00)
[2020-06-20] MEDS ORDERED: SODIUM CHLORIDE 0.9% (PF) 10 ML VIAL ONE (10:20)
[2020-06-20] MEDS ORDERED: ePHEDrine SULFATE/0.9% NACL/PF 50 MG/5 ML SYRINGE IV ONE (10:20)
[2020-06-20] MEDS ORDERED: PHENYLEPHRINE-0.9% NACL SYG 1,000 MCG/10 ML SYRINGE ONE (10:20)
[2020-06-20] MEDS ORDERED: ROPIVACAINE 5 MG/ML 30 ML VIAL ONE (10:20)
[2020-06-20] MEDS ORDERED: PROPOFOL 10 MG/ML 20 ML VIAL IV ONE (10:20)
[2020-06-20] MEDS ORDERED: fentaNYL (PF) 50 MCG/ML 2 ML AMP ONE (10:20)
[2020-06-20] MEDS ORDERED: WATER FOR INJECTION, STERILE 10 ML VIAL IV ONE (10:20)
[2020-06-20] MEDS ORDERED: SUCCINYLCHOLINE CHLORIDE 100 MG/5 ML SYR IV ONE (10:20)
[2020-06-20] MEDS ORDERED: LIDOCAINE 1% INJ 10MG/ML (20 ML MDV) ONE (10:20)
--- NOTE | 2020-06-20 10:38 | P.ANPRN ---
Procedure Note - Anesthesia - Nerve Block Performed Right Erector Spinae Single Time Out Performed: Yes Date of Procedure: 06/20/20 Procedure Start Time: 09:59 Procedure Stop Time: 10:14 Location of Patient: PreOp Indication: Acute Post-Operative Pain, Requested by Surgeon Sedation Type: Sedate with meaningful contact maintained Preparation: Sterile Prep Position: Prone Needle Types: Pajunk Needle Gauge: 21 Ultrasound used to visualize needle placement: Yes Ultrasound used to observe medication spread: Yes Blood Aspirated: No Pain Paresthesia on Injection Noted: No Resistance on Injection: Normal Image Stored and Saved: Yes Events: Uneventful and Well Tolerated (ropi .25% 30 cc)
[2020-06-20] MEDS ORDERED: BUPIVACAIN-EPI 0.5%-1:200,000 30 ML VIAL SQ ONE ×2 (10:46)
[2020-06-20] MEDS ORDERED: LACTATED RINGERS 1,000 ML IV ONE (11:27)
--- NOTE | 2020-06-20 11:32 | P.OP ---
Date of Procedure: 06/20/20 Preoperative Diagnosis: Right inguinal incarcerated hernia Postoperative Diagnosis: Right inguinal incarcerated hernia Procedure(s) Performed: Open right inguinal hernia repair with mesh placement Anesthesia: ROLANDO Surgeon: Michael Aguiar Pathology: other (Hernia sac) Condition: stable Disposition: same day Indications for Procedure: 80-year-old male presented to the surgery clinic with complaints of right groin pain. He had multiple emergency department visits secondary to this issue. He has had a previous left inguinal hernia repair recently secondary to incarcerated inguinal hernia causing a small bowel obstruction. He has recovered well from that procedure and plan was for addressing the right inguinal hernia in the future, however he has had multiple recent emergency department visit secondary to incarceration and requirement of reduction. He has received cardiac clearance for the procedure. He was risks, benefits and alternatives to the procedure. He did provide consent prior to attending the operating suite. Operative Findings: Right inguinal hernia, incarcerated with small bowel Description of Procedure: The patient was brought to the operating suite and placed in supine position on the operating table. Sedation was provided by anesthesia and the patient underwent endotracheal intubation. The patient was then prepped and draped in regular sterile fashion. A right inguinal incision was made and dissection was carried towards the external oblique aponeurosis. The external oblique aponeurosis was incised and this incision was carried towards the external ring and up towards the ASIS. The spermatic cord was then grasped and elevated with a Tahir drain. The hernia was noted to be both an indirect and direct hernia containing small bowel and the direct hernia sac. Hernia sac was dissected free from the spermatic cord and entered. Small bowel was completely reduced and a hernia sac ligation was performed. Hernia sac was sent for specimen. The indirect inguinal hernia arising from the internal ring was reduced. The hernia floor was reapproximated using interrupted 3-0 Vicryl suture. Once appropriate, a right-sided inguinal parietex progrip mesh was placed. This was placed without any kinks or folds. It was secured to the pubis bone using a 0 Vicryl suture. At this point the [place] drain was removed. The external oblique aponeurosis was reapproximated while re-creating an external ring. This was done with a running 3-0 Vicryl suture. The surgical wound was then closed in layers with 3-0 Vicryl and 4-0 subcuticular Vicryl suture. Sterile dressing was applied. The patient was awakened in the operating suite and taken to post anesthesia recovery unit in stable condition.
[2020-06-20 11:48] VITALS: TEMP 97.9
[2020-06-20 12:36] VITALS: RESP 16
[2020-06-20 13:10] VITALS: BP 134/88; PULSE 79
== END 2020-06-20 13:45 | disposition home or self-care (01) ==
LOC: OR 08:25
PROVIDERS: ATTEND Surgery
DX: K40.30 Unilateral inguinal hernia, with obstruction, without gangrene, not specified as recurrent (principal); I25.10 Atherosclerotic heart disease of native coronary artery without angina pectoris; I10 Essential (primary) hypertension; I25.5 Ischemic cardiomyopathy; E78.2 Mixed hyperlipidemia; I48.21 Permanent atrial fibrillation; N40.0 Benign prostatic hyperplasia without lower urinary tract symptoms; Z95.5 Presence of coronary angioplasty implant and graft; Z95.1 Presence of aortocoronary bypass graft; Z90.49 Acquired absence of other specified parts of digestive tract; Z79.01 Long term (current) use of anticoagulants; Z79.899 Other long term (current) drug therapy; Z79.82 Long term (current) use of aspirin; Z82.49 Family history of ischemic heart disease and other diseases of the circulatory system; Z87.891 Personal history of nicotine dependence; Z98.890 Other specified postprocedural states
CPT/HCPCS: 49507; 64461; 88302; C1713; J2250; J1644; J0690; J2405; J2001; J3010; J2795; J2370; J0330; J2704; 86850; 86900; 86901

== ENCOUNTER → 2020-09-06 | Outpatient (CLI) | payer MEDICARE, BC ==
--- NOTE | 2020-09-06 07:51 | US ---
EXAMINATION TYPE: US abdomen complete DATE OF EXAM: 09/06/2020 COMPARISON: NONE CLINICAL HISTORY: E80.7 Elevated bilirubin. EXAM MEASUREMENTS: Liver Length: 13.1 cm Gallbladder Wall: Surgically absent CBD: 0.7 cm Spleen: 10.2 cm Right Kidney: 13.5 x 5.4 x 5.8 cm Left Kidney: 13.4 x 5.3 x 6.0 cm Extensive overlying midline bowel gas. Pancreas: Obscured by bowel gas Liver: wnl Gallbladder: Surgically absent Evidence for sonographic Calderon's sign: No CBD: wnl Spleen: wnl Right Kidney: measures large, multiple cysts, largest measuring 1.0 x 1.3 x 1.3cm Left Kidney: measures large, echogenic, multiple cysts, largest measuring 3.9 x 3.8 x 3.4cm Upper IVC: wnl Abd Aorta: Obscured by overlying bowel gas IMPRESSION: 1. Bilateral renal cysts
== END | disposition home or self-care (01) ==
LOC: RADUSWWP 07:04
PROVIDERS: ATTEND Internal Medicine
DX: N28.1 Cyst of kidney, acquired (principal)
CPT/HCPCS: 76700

== ENCOUNTER 2022-10-28 22:23 | Inpatient (IN) | payer MEDICARE, BC ==
[2022-10-28] MEDS ORDERED: SODIUM CHLORIDE 0.9% 1,000 ML IV STA (22:27)
--- NOTE | 2022-10-28 22:28 | ED ---
Weakness HPI - General Stated complaint: WEAKNESS Time Seen by Provider: 10/28/22 22:27 Source: RN notes reviewed, old records reviewed Mode of arrival: ambulatory Limitations: no limitations - History of Present Illness Initial comments: This is an 82-year-old male to the emergency department for evaluation of weakness increasing weakness for weeks to months now. Patient also has burning with urination with recent diagnosis of kidney stones. Patient also complains of severe generalized weakness for a few days to weeks, multiple recent falls and recent bladder cystoscopy for evaluation MD Complaint: generalized weakness, lack of energy -: days(s) Location: generalized Severity: moderate Severity scale (1-10): 6 Quality: numbness Consistency: constant Improves with: none Context: recent illness, recent surgery, history of similar Associated Symptoms: confusion, loss of appetite, nausea/vomiting - Related Data Home Medications Medication Instructions Recorded Confirmed Pravastatin Sodium [Pravachol] 40 mg PO HS 07/21/17 10/29/22 amLODIPine [Norvasc] 5 mg PO DAILY 05/12/20 10/29/22 Tamsulosin HCl [Flomax] 0.4 mg PO DAILY 10/29/22 10/29/22 Previous Rx's Medication Instructions Recorded Apixaban [Eliquis] 2.5 mg PO BID #60 tab 11/03/22 Cefdinir 300 mg PO Q12HR #4 cap 11/03/22 Pravastatin Sodium [Pravachol] 80 mg PO HS #60 tab 11/03/22 carvediloL [Coreg*] 12.5 mg PO BID-W/MEALS #60 tab 11/03/22 Allergies Allergy/AdvReac Type Severity Reaction Status Date / Time No Known Allergies Allergy Verified 10/29/22 08:31 Review of Systems ROS Statement: Those systems with pertinent positive or pertinent negative responses have been documented in the HPI. ROS Other: All systems not noted in ROS Statement are negative. Past Medical History Past Medical History: Atrial Fibrillation, Coronary Artery Disease (CAD), Hypertension, Osteoarthritis (OA), Pneumonia, Prostate Disorder Additional Past Medical History / Comment(s): pneumonia May 2020 after hernia surgery, Last Myocardial Infarction Date:: unknown History of Any Multi-Drug Resistant Organisms: None Reported Past Surgical History: Cholecystectomy, Coronary Bypass/CABG, Heart Catheterization With Stent, Hernia Repair, Joint Replacement Additional Past Surgical History / Comment(s): triple bypass 14 years ago, aortic aneurysm repair, rt hip replacement, left inguinal hernia repair, unsure how many cardiac stents Past Anesthesia/Blood Transfusion Reactions: No Reported Reaction Date of Last Stent Placement:: unknown Smoking Status: Former smoker - Past Family History Mother Family Medical History: No Reported History Father Family Medical History: Congestive Heart Failure (CHF) (Father at the age of 78 from CHF.), Hypertension Additional Family Medical History / Comment(s): Patient states that his parents never went to the doctor. He thinks his father of hypertensive disease. He does not know much about his mother. Denies any significant medical history in siblings, is and has kids with no significant medical. lives of at home. Brother(s) Family Medical History: No Reported History (patient has one brother no major issues.) Sister(s) Family Medical History: No Reported History (patient has 2 sisters no major medical problems) Son(s) Family Medical History: No Reported History (patient has 2 sons ok.) Daughter(s) Family Medical History: No Reported History (one daughter ok.) General Exam General appearance: alert, in no apparent distress, anxious Head exam: Present: atraumatic, normocephalic, normal inspection Eye exam: Present: normal appearance, PERRL, EOMI. Absent: scleral icterus, conjunctival injection, periorbital swelling ENT exam: Present: normal exam, mucous membranes moist Neck exam: Present: normal inspection. Absent: tenderness, meningismus, lymphadenopathy Respiratory exam: Present: normal lung sounds bilaterally. Absent: respiratory distress, wheezes, rales, rhonchi, stridor Cardiovascular Exam: Present: regular rate, normal rhythm, normal heart sounds. Absent: systolic murmur, diastolic murmur, rubs, gallop, clicks GI/Abdominal exam: Present: soft, normal bowel sounds. Absent: distended, tenderness, guarding, rebound, rigid Extremities exam: Present: normal inspection, full ROM, normal capillary refill. Absent: tenderness, pedal edema, joint swelling, calf tenderness Back exam: Present: normal inspection Neurological exam: Present: alert, oriented X3, CN II-XII intact Psychiatric exam: Present: normal affect, normal mood Skin exam: Present: warm, dry, intact, normal color. Absent: rash Course Vital Signs 10/28/22 10/29/22 10/29/22 22:25 04:00 07:12 Temperature 99.0 F Pulse Rate 66 74 74 Pulse Rate [ Gun Profiler ] Respiratory 16 20 18 Rate Blood Pressure 158/93 156/95 Blood Pressure [Left Arm] O2 Sat by Pulse 98 95 94 L Oximetry 10/29/22 08:00 Temperature Pulse Rate Pulse Rate [ 72 Gun Profiler ] Respiratory 16 Rate Blood Pressure Blood Pressure 143/117 [Left Arm] O2 Sat by Pulse 94 L Oximetry - Reevaluation(s) Reevaluation #1: 10/29/22 01:41 Medical records reviewed Reevaluation #2: 10/29/22 01:41 Patient is no significant change in symptoms here in the ER Reevaluation #3: 10/29/22 01:41 Patient informed results questions answered Reevaluation #4: 10/28/22 23:23 Was pt. sent in by a medical professional or institution? @ -no Did you speak to anyone other than the patient for history? @ -no Did you review nursing and triage notes? @ -agree Were old charts reviewed? @ -yes Differential Diagnosis? @ -prior EKG interpreted by me (3pts min.)? @ -yes X-rays interpreted by me (1pt min.)? @ -yes CT interpreted by me (1pt min.)? @ -yes U/S interpreted by me (1pt. min.)? @ -no What testing was considered but not performed? (CT, X-rays, U/S, labs)? Why? @ -no What meds were considered but not given? Why? @ -no Did you discuss the management of the patient with other professionals? @ -no Did you reconcile home meds? @ -no Was smoking cessation discussed for >3mins.? @ -no Was critical care preformed (if so, how long)? @ -no Were there social determinants of health that impacted care today? How? (Homelessness, low income, unemployed, alcoholism, drug addiction, transportation, low edu. Level, literacy, decrease access to med. care, correction, rehab)? @ -no Was there de-escalation of care discussed even if they declined? (Discuss DNR or withdrawal of care, Hospice)? @ -no What co-morbidities impacted this encounter? (DM, HTN, Smoking, COPD, CAD, Cancer, CVA, Hep., AIDS, mental health diagnosis, sleep apnea, morbid obesity)? @ -none Was patient admitted / discharged? @ -82 female to the emergency department for evaluation of recent hernia with urination abdominal pain kidney stones. Patient will be admitted for IV antibiotics resuscitation and trending of mildly elevated troponin. Admitted Undiagnosed new problem with uncertain prognosis? @ -no Drug Therapy requiring intensive monitoring for toxicity (Heparin, Nitro, Insulin, Cardizem)? @ -no Were any procedures done? @ -no Diagnosis/symptom? @ -UTI with kidney stones Acute, or Chronic, or Acute on Chronic? @ -acute Uncomplicated (without systemic symptoms) or Complicated (systemic symptoms)? @ -complicated Side effects of treatment? @ -no Exacerbation, Progression, or Severe Exacerbation] @ -no Poses a threat to life or bodily function? @ -no Reevaluation #5: 10/29/22 01:41 Differential Weakness: Hypoglycemia, shock, sepsis, hyponatremia, anemia, infection, [place], ETOH, adverse medicine reaction, overdose, stroke, this is not meant to be an all-inclusive list. Differential Abdominal Pain Women: Appendicitis, Cholecystitis, diverticulosis, ischemic bowel, pancreatitis, hepatitis, UTI, gastroenteritis, AAA, incarcerated hernia, bowel obstruction, constipation, inflammatory bowel, hepatitis, peptic ulcer disease, splenic infarction, perforated viscus, vulvitis, ovarian torsion, PID, kidney stone, placenta abruption, this is not meant to be an all-inclusive list - Consultations Consultation #1: Spoke with sound who agrees to admit this patient EKG Findings - EKG Comments: EKG Findings:: EKG atrial fibrillation 90 QRS 110 QTc 442 - EKG Results: EKG: interpreted by BHAVESH Medical Decision Making - Medical Decision Making 82 female to the emergency department for evaluation of recent hernia with urination abdominal pain kidney stones. Patient will be admitted for IV antibiotics resuscitation and trending of mildly elevated troponin. - Lab Data Result diagrams: 11/02/22 06:26 11/04/22 06:31 Lab Results 10/28/22 10/28/22 10/28/22 Range/Units 22:42 22:42 22:42 WBC 14.8 H (3.8-10.6) k/uL RBC 3.53 L (4.30-5.90) m/uL Hgb 10.6 L (13.0-17.5) gm/dL Hct 31.0 L (39.0-53.0) % MCV 87.8 (80.0-100.0) fL MCH 30.0 (25.0-35.0) pg MCHC 34.2 (31.0-37.0) g/dL RDW 14.1 (11.5-15.5) % Plt Count 166 (150-450) k/uL MPV 8.9 Neutrophils % 93 % Lymphocytes % 2 % Monocytes % 5 % Eosinophils % 1 % Basophils % 0 % Neutrophils # 13.7 H (1.3-7.7) k/uL Lymphocytes # 0.3 L (1.0-4.8) k/uL Monocytes # 0.7 (0-1.0) k/uL Eosinophils # 0.1 (0-0.7) k/uL Basophils # 0.0 (0-0.2) k/uL PT 13.3 H (9.0-12.0) sec INR 1.3 H (<1.2) APTT 27.8 (22.0-30.0) sec Sodium 135 L (137-145) mmol/L Potassium 3.6 (3.5-5.1) mmol/L Chloride 104 (98-107) mmol/L Carbon Dioxide 22 (22-30) mmol/L Anion Gap 9 mmol/L BUN 60 H (9-20) mg/dL Creatinine 3.41 H (0.66-1.25) mg/dL Est GFR (CKD-EPI)AfAm 18 (>60 ml/min/1.73 sqM) Est GFR (CKD-EPI)NonAf 16 (>60 ml/min/1.73 sqM) Glucose 163 H (74-99) mg/dL Plasma Lactic Acid Minh (0.7-2.0) mmol/L Calcium 8.3 L (8.4-10.2) mg/dL Phosphorus 4.6 H (2.5-4.5) mg/dL Magnesium 1.9 (1.6-2.3) mg/dL Total Bilirubin 1.7 H (0.2-1.3) mg/dL AST 21 (17-59) U/L ALT 15 (4-49) U/L Alkaline Phosphatase 60 (38-126) U/L Troponin I (0.000-0.034) ng/mL Total Protein 5.7 L (6.3-8.2) g/dL Albumin 3.5 (3.5-5.0) g/dL TSH 1.500 (0.465-4.680) mIU/L Urine Color Urine Appearance (Clear) Urine pH (5.0-8.0) Ur Specific [place] (1.001-1.035) Urine Protein (Negative) Urine Glucose (UA) (Negative) Urine Ketones (Negative) Urine Blood (Negative) Urine Nitrite (Negative) Urine Bilirubin (Negative) Urine Urobilinogen (<2.0) mg/dL Ur Leukocyte Esterase (Negative) Urine RBC (0-5) /hpf Urine WBC (0-5) /hpf Urine WBC Clumps (None) /hpf Urine Bacteria (None) /hpf Urine Mucus (None) /hpf 10/28/22 10/28/22 10/29/22 Range/Units 22:42 22:42 00:22 WBC (3.8-10.6) k/uL RBC (4.30-5.90) m/uL Hgb (13.0-17.5) gm/dL Hct (39.0-53.0) % MCV (80.0-100.0) fL MCH (25.0-35.0) pg MCHC (31.0-37.0) g/dL RDW (11.5-15.5) % Plt Count (150-450) k/uL MPV Neutrophils % % Lymphocytes % % Monocytes % % Eosinophils % % Basophils % % Neutrophils # (1.3-7.7) k/uL Lymphocytes # (1.0-4.8) k/uL Monocytes # (0-1.0) k/uL Eosinophils # (0-0.7) k/uL Basophils # (0-0.2) k/uL PT (9.0-12.0) sec INR (<1.2) APTT (22.0-30.0) sec Sodium (137-145) mmol/L Potassium (3.5-5.1) mmol/L Chloride (98-107) mmol/L Carbon Dioxide (22-30) mmol/L Anion Gap mmol/L BUN (9-20) mg/dL Creatinine (0.66-1.25) mg/dL Est GFR (CKD-EPI)AfAm (>60 ml/min/1.73 sqM) Est GFR (CKD-EPI)NonAf (>60 ml/min/1.73 sqM) Glucose (74-99) mg/dL Plasma Lactic Acid Minh 1.2 (0.7-2.0) mmol/L Calcium (8.4-10.2) mg/dL Phosphorus (2.5-4.5) mg/dL Magnesium (1.6-2.3) mg/dL Total Bilirubin (0.2-1.3) mg/dL AST (17-59) U/L ALT (4-49) U/L Alkaline Phosphatase (38-126) U/L Troponin I 0.037 H* (0.000-0.034) ng/mL Total Protein (6.3-8.2) g/dL Albumin (3.5-5.0) g/dL TSH (0.465-4.680) mIU/L Urine Color Light Yellow Urine Appearance Cloudy (Clear) Urine pH 5.5 (5.0-8.0) Ur Specific [place] 1.007 (1.001-1.035) Urine Protein 1+ H (Negative) Urine Glucose (UA) Negative (Negative) Urine Ketones Negative (Negative) Urine Blood Large H (Negative) Urine Nitrite Negative (Negative) Urine Bilirubin Negative (Negative) Urine Urobilinogen <2.0 (<2.0) mg/dL Ur Leukocyte Esterase Large H (Negative) Urine RBC 25 H (0-5) /hpf Urine WBC 121 H (0-5) /hpf Urine WBC Clumps Few H (None) /hpf Urine Bacteria Occasional H (None) /hpf Urine Mucus Rare H (None) /hpf - EKG Data -: EKG Interpreted by Wi - Radiology Data Radiology results: report reviewed (CT head and pelvis is negative for acute disease), image reviewed Disposition Clinical Impression: Acute renal failure, Dehydration, UTI (urinary tract infection), Fever, Weakness Disposition: ADMITTED IP TO THIS HOSP Condition: Stable Is patient prescribed a controlled substance at d/c from ED?: No Time of Disposition: 01:30
[2022-10-28 23:04] LABS: Basophils % (A) 0 %; Eosinophils # (A) 0.1 k/uL (0-0.7); Eosinophils % (A) 1 %; HGB 10.6 gm/dL (13.0-17.5); Lymphocytes # (A) 0.3 k/uL (1.0-4.8); Lymphocytes % (A) 2 %; MCHC 34.2 g/dL (31.0-37.0); MCV 87.8 fL (80.0-100.0); Mean Platelet Volume 8.9; Monocytes # (A) 0.7 k/uL (0-1.0); Monocytes % (A) 5 %; Neutrophils # (A) 13.7 k/uL (1.3-7.7); Neutrophils % (A) 93 %; Platelet Count 166 k/uL (150-450); RBC 3.53 m/uL (4.30-5.90); RDW 14.1 % (11.5-15.5); WBC 14.8 k/uL (3.8-10.6)
[2022-10-28 23:18] LABS: ALT 15 U/L (4-49); AST 21 U/L (17-59); African American GFR (CKD) 18 (>60 ml/min/1.73 sqM); Albumin 3.5 g/dL (3.5-5.0); Alkaline Phosphatase 60 U/L (38-126); Anion Gap 9 mmol/L; Blood Urea Nitrogen 60 mg/dL (9-20); Calcium 8.3 mg/dL (8.4-10.2); Carbon Dioxide 22 mmol/L (22-30); Chloride 104 mmol/L (98-107); Glucose 163 mg/dL (74-99); Magnesium 1.9 mg/dL (1.6-2.3); Non-African American GFR(CKD) 16 (>60 ml/min/1.73 sqM); Phosphorus 4.6 mg/dL (2.5-4.5); Potassium 3.6 mmol/L (3.5-5.1); Sodium 135 mmol/L (137-145); Total Bilirubin 1.7 mg/dL (0.2-1.3); Total Protein 5.7 g/dL (6.3-8.2)
[2022-10-28 23:19] LABS: INR 1.3 (<1.2); Partial Thromboplastin Time 27.8 sec (22.0-30.0); Prothrombin Time 13.3 sec (9.0-12.0)
[2022-10-29 00:32] LABS: Appearance,Urine Cloudy (Clear); Bacteria,Urine Occasional /hpf; Bilirubin,Urine Negative (Negative); Blood,Urine Large (Negative); Color,Urine Light Yellow; Glucose,Urine (UA) Negative (Negative); Ketones,Urine Negative (Negative); Leukocyte Esterase,Urine Large (Negative); Mucus,Urine Rare /hpf; Nitrite,Urine Negative (Negative); PH, Urine 5.5 (5.0-8.0); Protein,Urine 1+ (Negative); RBC,Urine 25 /hpf (0-5); Specific Gravity,Urine 1.007 (1.001-1.035); Urobilinogen,Urine <2.0 mg/dL (<2.0); WBC,Urine 121 /hpf (0-5)
[2022-10-29] MEDS ORDERED: ACETAMINOPHEN TAB 325 MG TAB PO PRN (01:38)
[2022-10-29] MEDS ORDERED: SODIUM CHLORIDE 0.9% 500 ML 500 ML IV STA (01:38)
[2022-10-29] MEDS ORDERED: ONDANSETRON 4 MG/2 ML VIAL IVP PRN (01:38)
[2022-10-29] MEDS ORDERED: NALOXONE 0.4 MG/ML 1 ML VIAL IV PRN (01:38)
[2022-10-29] MEDS ORDERED: MORPHINE SULFATE 4 MG/ML SYRINGE IV PRN (01:38)
[2022-10-29] MEDS: SODIUM CHLORIDE 0.9% 1,000 ML IV SCH ×2 (01:59→10:01)
--- NOTE | 2022-10-29 05:31 | P.HPIM ---
History of Present Illness H&P Date: 10/29/22 Chief Complaint: not feeling well 82 year old male with afib on blood thinners he is coming in for evaluation due to generlized weakness and not feeling well. he denies any fever, chills, headache, nausea , vomiting, chest pain , or trouble breathing. but he is feeling very week, unable to ambulate, with recent falls couple weeks ago, no head injury no LOC he was recently diagnosed with kidney stones, and had urologic procedure done, since then he noticed hematuria with frequent urination and dysuria that has been getting worse. he denies any flank pain . denies any changes in bowel habits. review of systems Pertinent positives as noted in HPI. All other systems were reviewed and are negative on physical exam Constitutional: No acute distress, conversant, pleasant Eyes: Anicteric sclerae, moist conjunctiva, Pupils equal round reactive to light ENMT: NC/AT Oropharynx clear, no erythema, or exudates Neck: Supple, no masses, or JVD No carotid bruits No thyromegaly Lungs: Clear to auscultation Clear to percussion Normal respiratory effort, no accessory muscle use Cardiovascular: Heart regular in rate and rhythm, No murmurs, gallops, or rubs No peripheral edema Abdominal: Soft Nontender, no guarding, rebound or rigidity Abdomen moving with respiration Normoactive bowel sounds No hepatomegaly, No splenomegaly No palpable mass No abdominal wall hernia noted Skin: Normal temperature, tone, texture, turgor Extremities: No digital cyanosis No clubbing Pedal pulses intact and symmetrical Radial pulses intact and symmetrical No calf tenderness Psychiatric: Alert and oriented to person, place and time Appropriate affect Neuro Muscles Strength 5/5 in all 4 extremities Sensation to light touch grossly present throughout Cranial nerves II-XII grossly intact Lymphatics: no palpable cervical or supraclavicular lymph nodes Past Medical History Past Medical History: Atrial Fibrillation, Coronary Artery Disease (CAD), Hypertension, Osteoarthritis (OA), Pneumonia, Prostate Disorder Additional Past Medical History / Comment(s): pneumonia May 2020 after hernia surgery, Last Myocardial Infarction Date:: unknown History of Any Multi-Drug Resistant Organisms: None Reported Past Surgical History: Cholecystectomy, Coronary Bypass/CABG, Heart Catheterization With Stent, Hernia Repair, Joint Replacement Additional Past Surgical History / Comment(s): triple bypass 14 years ago, aortic aneurysm repair, rt hip replacement, left inguinal hernia repair, unsure how many cardiac stents Past Anesthesia/Blood Transfusion Reactions: No Reported Reaction Date of Last Stent Placement:: unknown Smoking Status: Former smoker - Past Family History Mother Family Medical History: No Reported History Father Family Medical History: Congestive Heart Failure (CHF) (Father at the age of 78 from CHF.), Hypertension Additional Family Medical History / Comment(s): Patient states that his parents never went to the doctor. He thinks his father of hypertensive disease. He does not know much about his mother. Denies any significant medical history in siblings, is and has kids with no significant medical. lives of at home. Brother(s) Family Medical History: No Reported History (patient has one brother no major issues.) Sister(s) Family Medical History: No Reported History (patient has 2 sisters no major m edical problems) Son(s) Family Medical History: No Reported History (patient has 2 sons ok.) Daughter(s) Family Medical History: No Reported History (one daughter ok.) Medications and Allergies Home Medications Medication Instructions Recorded Confirmed Type Apixaban [Eliquis] 5 mg PO BID 07/21/17 06/20/20 History Losartan [Cozaar] 25 mg PO DAILY 07/21/17 06/20/20 History Pravastatin Sodium [Pravachol] 40 mg PO HS 07/21/17 06/20/20 History Terazosin [Hytrin] 5 mg PO DAILY 07/21/17 06/20/20 History atenoloL [Tenormin] 50 mg PO BID 08/26/18 06/20/20 History amLODIPine [Norvasc] 5 mg PO DAILY 05/12/20 06/20/20 History Acetaminophen-Codeine 300-30mg 1 tab PO Q6H PRN 3 Days #12 tablet 06/20/20 Rx [Tylenol w/codeine #3] Allergies Allergy/AdvReac Type Severity Reaction Status Date / Time No Known Allergies Allergy Verified 06/20/20 09:00 Physical Exam Vitals: Vital Signs Temp Pulse Resp BP Pulse Ox 10/29/22 04:00 74 20 156/95 95 10/28/22 22:25 99.0 F 66 16 158/93 98 Intake and Output 10/28/22 10/28/22 10/29/22 14:59 22:59 06:59 Other: Weight 77.111 kg Results CBC & Chem 7: 10/28/22 22:42 10/28/22 22:42 Labs: Abnormal Lab Results - Last 24 Hours (Table) 10/28/22 10/28/22 10/28/22 Range/Units 22:42 22:42 22:42 WBC 14.8 H (3.8-10.6) k/uL RBC 3.53 L (4.30-5.90) m/uL Hgb 10.6 L (13.0-17.5) gm/dL Hct 31.0 L (39.0-53.0) % Neutrophils # 13.7 H (1.3-7.7) k/uL Lymphocytes # 0.3 L (1.0-4.8) k/uL PT 13.3 H (9.0-12.0) sec INR 1.3 H (<1.2) Sodium 135 L (137-145) mmol/L BUN 60 H (9-20) mg/dL Creatinine 3.41 H (0.66-1.25) mg/dL Glucose 163 H (74-99) mg/dL Calcium 8.3 L (8.4-10.2) mg/dL Phosphorus 4.6 H (2.5-4.5) mg/dL Total Bilirubin 1.7 H (0.2-1.3) mg/dL Troponin I (0.000-0.034) ng/mL Total Protein 5.7 L (6.3-8.2) g/dL Urine Protein (Negative) Urine Blood (Negative) Ur Leukocyte Esterase (Negative) Urine RBC (0-5) /hpf Urine WBC (0-5) /hpf Urine WBC Clumps (None) /hpf Urine Bacteria (None) /hpf Urine Mucus (None) /hpf 10/28/22 10/29/22 Range/Units 22:42 00:22 WBC (3.8-10.6) k/uL RBC (4.30-5.90) m/uL Hgb (13.0-17.5) gm/dL Hct (39.0-53.0) % Neutrophils # (1.3-7.7) k/uL Lymphocytes # (1.0-4.8) k/uL PT (9.0-12.0) sec INR (<1.2) Sodium (137-145) mmol/L BUN (9-20) mg/dL Creatinine (0.66-1.25) mg/dL Glucose (74-99) mg/dL Calcium (8.4-10.2) mg/dL Phosphorus (2.5-4.5) mg/dL Total Bilirubin (0.2-1.3) mg/dL Troponin I 0.037 H* (0.000-0.034) ng/mL Total Protein (6.3-8.2) g/dL Urine Protein 1+ H (Negative) Urine Blood Large H (Negative) Ur Leukocyte Esterase Large H (Negative) Urine RBC 25 H (0-5) /hpf Urine WBC 121 H (0-5) /hpf Urine WBC Clumps Few H (None) /hpf Urine Bacteria Occasional H (None) /hpf Urine Mucus Rare H (None) /hpf Assessment and Plan Assessment: 82 year old male with afib on blood thinners, coming in for urinary changes and generalized weakness, I discussed the case with ED doc, and I accepted the admission for acute UTI, for IV antibiotics and PT eval , with anticipated length of stay > 2 midnights acute UTI complex with recent kidney stones follow up cultures tylenol for fever rocphine IVPB daily 2 gms IVF hydration with normal saline @ 125 cc per hour UA positive for microscopic hematuria and leuk esterase WBC 14.8 elevated patient reports dysuria and frequency MARION check renal US monitor urine output monitor renal function BUN 60, cr 3.4 Na 135 , K 3.6 unremarkable hold losartan chronic Afib on blood thinners resume eliquis resume atenolol EKG showed afib hypertension controlled resume amlodipine and atenolol losartan on hold 2/2 MARION fall precautions PT eval recent fall couple weeks ago full code DVT PPX on eliquis for afib
[2022-10-29] MEDS: DOXAZOSIN 4 MG TAB PO SCH (09:46)
[2022-10-29] MEDS: amLODIPine 5 MG TAB PO SCH (09:46)
[2022-10-29] MEDS: APIXABAN 5 MG TAB PO SCH ×2 (09:46→21:35)
[2022-10-29] MEDS: atenoloL 50 MG TAB PO SCH ×2 (09:46→21:35)
--- NOTE | 2022-10-29 17:02 | P.GSCN ---
History of Present Illness Consult date: 10/29/22 History of present illness: This is an 82-year-old patient of Dr. Bravo recently was diagnosed with a bladder mass based on the cystoscopy. He is scheduled to undergo a transuretheral resection of a bladder tumor on November 09. He presented to the hospital with generalized weakness and acute kidney injury. Denies any gross hematuria or dysuria or any flank pain. On presentation his creatinine was elevated at 3.4 from 1.1, the patient has been having poor by mouth intake Review of Systems - Constitutional Reports fatigue, Reports weakness - Cardiovascular Denies chest pain, Denies shortness of breath - Respiratory Denies cough, Denies 7 - Gastrointestinal Reports as per HPI - Genitourinary Denies dysuria, Denies hematuria - Neurological Denies headaches, Denies syncope Past Medical History Past Medical History: Atrial Fibrillation, Coronary Artery Disease (CAD), Hypertension, Osteoarthritis (OA), Pneumonia, Prostate Disorder Additional Past Medical History / Comment(s): pneumonia May 2020 after hernia surgery, Last Myocardial Infarction Date:: unknown History of Any Multi-Drug Resistant Organisms: None Reported Past Surgical History: Cholecystectomy, Coronary Bypass/CABG, Heart Catheterization With Stent, Hernia Repair, Joint Replacement Additional Past Surgical History / Comment(s): triple bypass 14 years ago, aortic aneurysm repair, rt hip replacement, left inguinal hernia repair, unsure how many cardiac stents Cystoscopy on 10/26/22 Past Anesthesia/Blood Transfusion Reactions: No Reported Reaction Date of Last Stent Placement:: unknown Past Psychological History: No Psychological Hx Reported Smoking Status: Former smoker Past Alcohol Use History: None Reported Additional Past Alcohol Use History / Comment(s): quit smoking 20 yrs. ago, 1ppd for 25 yrs. Past Drug Use History: None Reported - Past Family History Mother Family Medical History: No Reported History Father Family Medical History: Congestive Heart Failure (CHF) (Father at the age of 78 from CHF.), Hypertension Additional Family Medical History / Comment(s): Patient states that his parents never went to the doctor. He thinks his father of hypertensive disease. He does not know much about his mother. Denies any significant medical history in siblings, is and has kids with no significant medical. lives of at home. Brother(s) Family Medical History: No Reported History (patient has one brother no major issues.) Sister(s) Family Medical History: No Reported History (patient has 2 sisters no major medical problems) Son(s) Family Medical History: No Reported History (patient has 2 sons ok.) Daughter(s) Family Medical History: No Reported History (one daughter ok.) Medications and Allergies Home Medications Medication Instructions Recorded Confirmed Type Apixaban [Eliquis] 5 mg PO BID 07/21/17 10/29/22 History Losartan [Cozaar] 25 mg PO DAILY 07/21/17 10/29/22 History Pravastatin Sodium [Pravachol] 40 mg PO HS 07/21/17 10/29/22 History Terazosin [Hytrin] 5 mg PO DAILY 07/21/17 10/29/22 History atenoloL [Tenormin] 50 mg PO BID 08/26/18 10/29/22 History amLODIPine [Norvasc] 5 mg PO DAILY 05/12/20 10/29/22 History Tamsulosin HCl [Flomax] 0.4 mg PO DAILY 10/29/22 10/29/22 History Allergies Allergy/AdvReac Type Severity Reaction Status Date / Time No Known Allergies Allergy Verified 10/29/22 08:31 Surgical - Exam Vital Signs Temp Pulse Resp BP Pulse Ox 99.0 F 66 16 158/93 98 10/28/22 22:25 10/28/22 22:25 10/28/22 22:25 10/28/22 22:25 10/28/22 22:25 - General no distress, no pain - Eyes normal ocular movement, no pale - ENT normal nares, normal mucosa - Respiratory normal expansion, normal respiratory effort - Abdomen Abdomen: soft, non tender Results - Labs 10/28/22 22:42 10/28/22 22:42 Abnormal Lab Results - Last 24 Hours (Table) 10/28/22 10/28/22 10/28/22 Range/Units 22:42 22:42 22:42 WBC 14.8 H (3.8-10.6) k/uL RBC 3.53 L (4.30-5.90) m/uL Hgb 10.6 L (13.0-17.5) gm/dL Hct 31.0 L (39.0-53.0) % Neutrophils # 13.7 H (1.3-7.7) k/uL Lymphocytes # 0.3 L (1.0-4.8) k/uL PT 13.3 H (9.0-12.0) sec INR 1.3 H (<1.2) Sodium 135 L (137-145) mmol/L BUN 60 H (9-20) mg/dL Creatinine 3.41 H (0.66-1.25) mg/dL Glucose 163 H (74-99) mg/dL Calcium 8.3 L (8.4-10.2) mg/dL Phosphorus 4.6 H (2.5-4.5) mg/dL Total Bilirubin 1.7 H (0.2-1.3) mg/dL Troponin I (0.000-0.034) ng/mL Total Protein 5.7 L (6.3-8.2) g/dL Urine Protein (Negative) Urine Blood (Negative) Ur Leukocyte Esterase (Negative) Urine RBC (0-5) /hpf Urine WBC (0-5) /hpf Urine WBC Clumps (None) /hpf Urine Bacteria (None) /hpf Urine Mucus (None) /hpf 10/28/22 10/29/22 10/29/22 Range/Units 22:42 00:22 04:30 WBC (3.8-10.6) k/uL RBC (4.30-5.90) m/uL Hgb (13.0-17.5) gm/dL Hct (39.0-53.0) % Neutrophils # (1.3-7.7) k/uL Lymphocytes # (1.0-4.8) k/uL PT (9.0-12.0) sec INR (<1.2) Sodium (137-145) mmol/L BUN (9-20) mg/dL Creatinine (0.66-1.25) mg/dL Glucose (74-99) mg/dL Calcium (8.4-10.2) mg/dL Phosphorus (2.5-4.5) mg/dL Total Bilirubin (0.2-1.3) mg/dL Troponin I 0.037 H* 0.059 H* (0.000-0.034) ng/mL Total Protein (6.3-8.2) g/dL Urine Protein 1+ H (Negative) Urine Blood Large H (Negative) Ur Leukocyte Esterase Large H (Negative) Urine RBC 25 H (0-5) /hpf Urine WBC 121 H (0-5) /hpf Urine WBC Clumps Few H (None) /hpf Urine Bacteria Occasional H (None) /hpf Urine Mucus Rare H (None) /hpf 10/29/22 Range/Units 06:57 WBC (3.8-10.6) k/uL RBC (4.30-5.90) m/uL Hgb (13.0-17.5) gm/dL Hct (39.0-53.0) % Neutrophils # (1.3-7.7) k/uL Lymphocytes # (1.0-4.8) k/uL PT (9.0-12.0) sec INR (<1.2) Sodium (137-145) mmol/L BUN (9-20) mg/dL Creatinine (0.66-1.25) mg/dL Glucose (74-99) mg/dL Calcium (8.4-10.2) mg/dL Phosphorus (2.5-4.5) mg/dL Total Bilirubin (0.2-1.3) mg/dL Troponin I 0.056 H* (0.000-0.034) ng/mL Total Protein (6.3-8.2) g/dL Urine Protein (Negative) Urine Blood (Negative) Ur Leukocyte Esterase (Negative) Urine RBC (0-5) /hpf Urine WBC (0-5) /hpf Urine WBC Clumps (None) /hpf Urine Bacteria (None) /hpf Urine Mucus (None) /hpf Diabetes panel 10/28/22 Range/Units 22:42 Sodium 135 L (137-145) mmol/L Potassium 3.6 (3.5-5.1) mmol/L Chloride 104 (98-107) mmol/L Carbon Dioxide 22 (22-30) mmol/L BUN 60 H (9-20) mg/dL Creatinine 3.41 H (0.66-1.25) mg/dL Glucose 163 H (74-99) mg/dL Calcium 8.3 L (8.4-10.2) mg/dL AST 21 (17-59) U/L ALT 15 (4-49) U/L Alkaline Phosphatase 60 (38-126) U/L Total Protein 5.7 L (6.3-8.2) g/dL Albumin 3.5 (3.5-5.0) g/dL Thyroid panel 10/28/22 Range/Units 22:42 TSH 1.500 (0.465-4.680) mIU/L Calcium panel 10/28/22 Range/Units 22:42 Calcium 8.3 L (8.4-10.2) mg/dL Phosphorus 4.6 H (2.5-4.5) mg/dL Albumin 3.5 (3.5-5.0) g/dL Pituitary panel 10/28/22 Range/Units 22:42 Sodium 135 L (137-145) mmol/L Potassium 3.6 (3.5-5.1) mmol/L Chloride 104 (98-107) mmol/L Carbon Dioxide 22 (22-30) mmol/L BUN 60 H (9-20) mg/dL Creatinine 3.41 H (0.66-1.25) mg/dL Glucose 163 H (74-99) mg/dL Calcium 8.3 L (8.4-10.2) mg/dL TSH 1.500 (0.465-4.680) mIU/L Adrenal panel 10/28/22 Range/Units 22:42 Sodium 135 L (137-145) mmol/L Potassium 3.6 (3.5-5.1) mmol/L Chloride 104 (98-107) mmol/L Carbon Dioxide 22 (22-30) mmol/L BUN 60 H (9-20) mg/dL Creatinine 3.41 H (0.66-1.25) mg/dL Glucose 163 H (74-99) mg/dL Calcium 8.3 L (8.4-10.2) mg/dL Total Bilirubin 1.7 H (0.2-1.3) mg/dL AST 21 (17-59) U/L ALT 15 (4-49) U/L Alkaline Phosphatase 60 (38-126) U/L Total Protein 5.7 L (6.3-8.2) g/dL Albumin 3.5 (3.5-5.0) g/dL Assessment and Plan Assessment: 82-year-old male with history of bladder mass scheduled to undergo transurtheral resection of bladder tumor by Dr. Garcia on November 09. admitted to the hospital with acute kidney injury and weakness. Advised the patient to keep his surgery date with Dr. Bravo, given acute kidney injury to recommend renal bladder ultrasound and checking his postvoid residual to r/o urinary retention
--- NOTE | 2022-10-29 19:40 | US ---
EXAMINATION TYPE: US kidneys/renal and bladder DATE OF EXAM: 10/29/2022 COMPARISON: 09/06/20 CLINICAL INDICATION: Male, 82 years old with history of MARION; marion EXAM MEASUREMENTS: Right Kidney: 13.5 x 6.9 x 5.9 cm Left Kidney: 14.8 x 7.2 x 9.0 cm Right Kidney: Mild to moderate hydronephrosis visualized. Small cyst on lateral border seen measuring 1.1 x 0.9 x 0.7cm Left Kidney: Severe hydronephrosis visualized. Little to no parenchyma visualized Bladder: Irregular wall thickening seen around bladder, more posteriorly. Bilateral Jets seen: No There is no evidence for hydronephrosis at this point in time. No nephrolithiasis is seen. No fish s are identified. IMPRESSION: 1. Severe left-sided hydronephrosis. Renal parenchymal thinning suggesting chronic process. 2. Mild to moderate right-sided hydronephrosis.
[2022-10-29] MEDS: PRAVASTATIN SODIUM 40 MG TAB PO SCH (21:35)
[2022-10-30] MEDS: SODIUM CHLORIDE 0.9% 1,000 ML IV SCH ×4 (01:58→15:17)
[2022-10-30] MEDS: atenoloL 50 MG TAB PO SCH ×2 (08:27→21:44)
[2022-10-30] MEDS: amLODIPine 5 MG TAB PO SCH (08:27)
[2022-10-30] MEDS: APIXABAN 5 MG TAB PO SCH ×2 (08:27→21:44)
[2022-10-30] MEDS: DOXAZOSIN 4 MG TAB PO SCH (08:28)
[2022-10-30 09:01] LABS: Basophils # (A) 0.02 X 10*3/uL (0.00-0.10); Basophils % (A) 0.2 %; Eosinophils # (A) 0.07 X 10*3/uL (0.04-0.35); Eosinophils % (A) 0.7 %; HCT 29.1 % (39.6-50.0); HGB 9.3 d/dL (12.0-15.0); Lymphocytes # (A) 0.46 X 10*3/uL (0.90-5.00); Lymphocytes % (A) 4.3 %; MCH 29.2 pg (27.0-32.0); MCV 91.5 FL (80.0-97.0); Mean Platelet Volume 11.9 FL (9.5-12.2); Monocytes # (A) 0.67 X 10*3/uL (0.20-1.00); Monocytes % (A) 6.3 %; NRBC Per 100 WBC 0 X 10*3/uL (0.00-0.01); Neutrophils # (A) 9.39 X 10*3/uL (1.80-7.70); Neutrophils % (A) 87.8 %; Platelet Count 152 X 10*3/uL (140-440); RBC 3.18 X 10*6/uL (4.40-5.60); RDW 14.4 % (11.5-14.5); WBC 10.68 X 10*3/uL (4.50-10.00)
[2022-10-30 09:51] LABS: Magnesium 1.8 mg/dL (1.5-2.4); Phosphorus 3.7 mg/dL (2.4-5.1)
[2022-10-30 10:03] LABS: ALT 9 U/L (10-49); AST 11 U/L (14-35); Albumin 3.2 d/dL (3.8-4.9); Albumin/Globulin Ratio 1.88 Ratio (1.60-3.17); Alkaline Phosphatase 56 U/L (41-126); BUN/Creat Ratio 15.57 Ratio (12.00-20.00); Blood Urea Nitrogen 46.7 mg/dL (9.0-27.0); Calcium 8.1 mg/dL (8.7-10.3); Carbon Dioxide 20.8 mmol/L (21.6-31.8); Chloride 110 mmol/L (96-109); Globulin 1.7 d/dL (1.6-3.3); Glucose 102 mg/dL (70-110); Potassium 3.3 mmol/L (3.5-5.5); Sodium 143 mmol/L (135-145); Total Bilirubin 0.5 mg/dL (0.3-1.2); Total Protein 4.9 d/dL (6.2-8.2)
[2022-10-30] MEDS ORDERED: POTASSIUM CHLORIDE ER 20 MEQ TAB.ER PO STA (15:01)
--- NOTE | 2022-10-30 15:03 | P.PN ---
Subjective Progress Note Date: 10/30/22 Hospital Course: 82-year-old male with atrial fibrillation on anticoagulation presenting with generalized weakness and recent falls. Was recently diagnosed with kidney stones and a bladder mass, was scheduled to undergo bladder tumor resection in early October. Initial WBC was 14.8, hemoglobin 10.6, creatinine 2.41, troponin elevated to 0.059. Urology consulted. Renal ultrasound shows severe left-sided hydronephrosis, likely chronic process, mild to moderate right-sided hydronephro sis. Renal function slowly improving. Subjective: Patient seen and examined at bedside. No acute events overnight. Pertinent positives and negatives as discussed above, a complete review of sys tems was performed and all other systems are negative. Vitals Signs Reviewed. General: nontoxic, no distress, appears at stated age Derm: warm, dry Head: atraumatic, normocephalic, symmetric Eyes: EOMI, no lid lag, anicteric sclera Mouth: no lip lesion, mucus membranes moist Cardiovascular: S1S2 reg, no murmur Lungs: CTA bilateral, no rhonchi, no rales , no accessory muscle use Abdominal: soft, nontender to palpation, no guarding, no appreciable organomegaly Ext: no gross muscle atrophy, no edema, no contractures Neuro: CN II-XI grossly intact, no focal neuro deficits Psych: Alert, oriented, appropriate affect Data Reviewed Today: Pertinent Labs: wbc 10.68, hgb 9.3, Na 143, K 3.3, Cr 3 Imaging: Renal ultrasound shows severe left-sided hydronephrosis, likely chronic process, mild to moderate right-sided hydronephrosis. Assessment and Plan: Active: Nonoliguric Acute kidney injury, improving Bladder tumor Recent urologic procedure type 2 NSTEMI in the setting of MARION Hypokalemia Acute blood loss anemia, hematuria Atrial fibrillation on Eliquis Generalized weakness -hold losartan -Acute renal failure likely in the setting of recent urologic procedure -Renal ultrasound showed bilateral hydronephrosis, however it may be a chronic process -Continue to monitor BMP -Monitor off of antibiotics -urology following -no active chest pain - 20 mEq oral potassium given -Continue monitor CBC, Eliquis continued -PT/OT Resolved: Leukocytosis Chronic: HLD HTN DVT ppx: Eliquis Code status: Full code Anticipated discharge place: Pending clinical course Anticipated discharge time: Pending clinical course Objective - Vital Signs Vital signs: Vital Signs Temp 97.6 F 10/30/22 13:58 Pulse 70 10/30/22 13:58 Resp 24 10/30/22 13:58 BP 164/97 10/30/22 13:58 Pulse Ox 96 10/30/22 13:58 FiO2 Intake & Output 10/29/22 10/30/22 10/30/22 18:59 06:59 18:59 Intake Total 240 1200 Output Total 1010 1800 650 Balance -770 -1800 550 Intake: Oral 240 1200 Output: Urine 900 1800 650 Post Void Residual 110 Other: Voiding Method External Catheter External Catheter External Catheter # Voids 1 # Bowel Movements 0 0 - Labs CBC & Chem 7: 10/30/22 05:33 10/30/22 05:33 Labs: Abnormal Lab Results - Last 24 Hours (Table) 10/30/22 10/30/22 Range/Units 05:33 05:33 WBC 10.68 H (4.50-10.00) X 10*3/uL RBC 3.18 L (4.40-5.60) X 10*6/uL Hgb 9.3 L (12.0-15.0) d/dL Hct 29.1 L (39.6-50.0) % Neutrophils # 9.39 H (1.80-7.70) X 10*3/uL Lymphocytes # 0.46 L (0.90-5.00) X 10*3/uL Potassium 3.3 L (3.5-5.5) mmol/L Chloride 110 H (96-109) mmol/L Carbon Dioxide 20.8 L (21.6-31.8) mmol/L Anion Gap 12.20 H (4.00-12.00) mmol/L BUN 46.7 H (9.0-27.0) mg/dL Creatinine 3.0 H (0.6-1.5) mg/dL Est GFR (CKD-EPI) 20 L (>=60) Calcium 8.1 L (8.7-10.3) mg/dL AST 11 L (14-35) U/L ALT 9 L (10-49) U/L Total Protein 4.9 L (6.2-8.2) d/dL Albumin 3.2 L (3.8-4.9) d/dL
[2022-10-30] MEDS: PRAVASTATIN SODIUM 40 MG TAB PO SCH (21:44)
[2022-10-31] MEDS: SODIUM CHLORIDE 0.9% 1,000 ML IV SCH ×2 (00:22→10:47)
[2022-10-31] MEDS ORDERED: cloNIDine HCL 0.1 MG TAB PO PRN (04:12)
[2022-10-31 09:24] LABS: Basophils # (A) 0.01 X 10*3/uL (0.00-0.10); Basophils % (A) 0.1 %; Eosinophils % (A) 1.2 %; HCT 29.6 % (39.6-50.0); HGB 9.5 d/dL (12.0-15.0); Lymphocytes # (A) 0.35 X 10*3/uL (0.90-5.00); Lymphocytes % (A) 4.3 %; MCH 29.2 pg (27.0-32.0); MCHC 32.1 d/dL (32.0-37.0); MCV 91.1 FL (80.0-97.0); Mean Platelet Volume 11.4 FL (9.5-12.2); Monocytes # (A) 0.54 X 10*3/uL (0.20-1.00); Monocytes % (A) 6.7 %; NRBC Per 100 WBC 0 X 10*3/uL (0.00-0.01); Neutrophils # (A) 7.03 X 10*3/uL (1.80-7.70); Neutrophils % (A) 87.2 %; Platelet Count 157 X 10*3/uL (140-440); RBC 3.25 X 10*6/uL (4.40-5.60); RDW 14.1 % (11.5-14.5); WBC 8.07 X 10*3/uL (4.50-10.00)
[2022-10-31] MEDS ORDERED: ARTIFICIAL TEARS-HYPROMELLOSE DROPS 15 ML BTL BOTH EYES PRN (09:28)
[2022-10-31] MEDS ORDERED: DEXTROSE 5% IN WATER 1,000 ML with SODIUM BICARB (1 MEQ/ML) 150 ML IV SCH (10:00)
[2022-10-31] MEDS: atenoloL 50 MG TAB PO SCH ×2 (10:29→20:43)
[2022-10-31] MEDS: DOXAZOSIN 4 MG TAB PO SCH (10:29)
[2022-10-31] MEDS: amLODIPine 5 MG TAB PO SCH (10:29)
[2022-10-31] MEDS: TAMSULOSIN 0.4 MG CAP.ER.24H PO SCH (10:29)
[2022-10-31] MEDS: APIXABAN 5 MG TAB PO SCH ×2 (10:29→20:43)
[2022-10-31] MEDS ORDERED: SODIUM CHLORIDE 0.9% 1,000 ML IV SCH (11:30)
--- NOTE | 2022-10-31 11:30 | P.NPCON ---
History of Present Illness - Reason for Consult acute renal failure - History of Present Illness Patient is an 82-year-old male with history of A. fib, coronary artery disease, hypertension who was admitted to the hospital with complaints of weakness and not feeling well. Patient was recently diagnosed with a bladder mass and is scheduled to go for surgery on 11/09/2022. Serum creatinine was 3.4 in admission and decreased to 3.0 today. Patient was maintained on angiotensin receptor blockers prior to admission, currently on hold. Blood pressure has not been low in fact it is on the high side Patient has been voiding. Post void residual was 110 ML. No significant history of nausea vomiting or decreased oral intake. No history of use of NSAIDs. Review of Systems As per HPI Past Medical History Past Medical History: Atrial Fibrillation, Coronary Artery Disease (CAD), Hypertension, Osteoarthritis (OA), Pneumonia, Prostate Disorder Additional Past Medical History / Comment(s): pneumonia May 2020 after hernia surgery, Last Myocardial Infarction Date:: unknown History of Any Multi-Drug Resistant Organisms: None Reported Past Surgical History: Cholecystectomy, Coronary Bypass/CABG, Heart Catheterization With Stent, Hernia Repair, Joint Replacement Additional Past Surgical History / Comment(s): triple bypass 14 years ago, aortic aneurysm repair, rt hip replacement, left inguinal hernia repair, unsure how many cardiac stents Cystoscopy on 10/26/22 Past Anesthesia/Blood Transfusion Reactions: No Reported Reaction Date of Last Stent Placement:: unknown Past Psychological History: No Psychological Hx Reported Smoking Status: Former smoker Past Alcohol Use History: None Reported Additional Past Alcohol Use History / Comment(s): quit smoking 20 yrs. ago, 1ppd for 25 yrs. Past Drug Use History: None Reported - Past Family History Mother Family Medical History: No Reported History Father Family Medical History: Congestive Heart Failure (CHF) (Father at the age of 78 from CHF.), Hypertension Additional Family Medical History / Comment(s): Patient states that his parents never went to the doctor. He thinks his father of hypertensive disease. He does not know much about his mother. Denies any significant medical history in siblings, is and has kids with no significant medical. lives of at home. Brother(s) Family Medical History: No Reported History (patient has one brother no major issues.) Sister(s) Family Medical History: No Reported History (patient has 2 sisters no major medical problems) Son(s) Family Medical History: No Reported History (patient has 2 sons ok.) Daughter(s) Family Medical History: No Reported History (one daughter ok.) Medications and Allergies Home Medications Medication Instructions Recorded Confirmed Type Apixaban [Eliquis] 5 mg PO BID 07/21/17 10/29/22 History Losartan [Cozaar] 25 mg PO DAILY 07/21/17 10/29/22 History Pravastatin Sodium [Pravachol] 40 mg PO HS 07/21/17 10/29/22 History Terazosin [Hytrin] 5 mg PO DAILY 07/21/17 10/29/22 History atenoloL [Tenormin] 50 mg PO BID 08/26/18 10/29/22 History amLODIPine [Norvasc] 5 mg PO DAILY 05/12/20 10/29/22 History Tamsulosin HCl [Flomax] 0.4 mg PO DAILY 10/29/22 10/29/22 History Allergies Allergy/AdvReac Type Severity Reaction Status Date / Time No Known Allergies Allergy Verified 10/29/22 08:31 Physical Exam Vitals: Vital Signs Temp Pulse Pulse Pulse Resp BP BP 10/31/22 08:47 10/31/22 08:45 72 71 89 18 10/31/22 08:00 97.3 F L 71 18 158/97 10/31/22 03:15 98.1 F 67 16 10/31/22 01:30 97.3 F L 91 16 10/30/22 23:34 162/92 10/30/22 20:00 97.9 F 89 16 173/118 10/30/22 13:58 97.6 F 70 24 164/97 BP Pulse Ox 10/31/22 08:47 96 10/31/22 08:45 10/31/22 08:00 93 L 10/31/22 03:15 168/99 96 10/31/22 01:30 158/111 96 10/30/22 23:34 10/30/22 20:00 96 10/30/22 13:58 96 Intake and Output 10/30/22 10/31/22 10/31/22 22:59 06:59 14:59 Intake Total 1660 296 Output Total 525 1450 250 Balance 1135 -1450 46 Intake: Intake, IV Titration 1660 Amount Sodium Chloride 0.9% 1, 1660 000 ml @ 130 mls/hr IV . Q7H42M [facility] Rx#:[id number] Oral 296 Output: Urine 525 1450 250 Other: Voiding Method Urinal Urinal Diaper Diaper # Voids 1 1 Patient is awake, comfortable, no acute distress. Examination of the heart S1 and S2 Examination of the lungs bilateral breath sounds are Abdomen is soft nontender Examination lower extremities shows no evidence of edema [employer] exam grossly intact Results - Lab Results Most recent lab results Calcium 8.1 mg/dL (8.7-10.3) L 10/30/22 05:33 Phosphorus 3.7 mg/dL (2.4-5.1) 10/30/22 05:33 Magnesium 1.8 mg/dL (1.5-2.4) 10/30/22 05:33 10/31/22 05:01 10/30/22 05:33 Assessment and Plan Assessment: 1. Acute kidney injury, obstructive uropathy as ultrasound shows bilateral hydronephrosis.. UA shows 1+ protein and large blood. Patient has an underlying bladder mass scheduled for surgery on 11/09/2022. No obvious nephrotoxic agents notified. Renal function has improved with IV hydration. They may be a hypovolemic component. Agree with holding angiotensin receptor blockers. 2. Hypokalemia currently being replaced. Patient is not on diuretics. Oral intake seems fair. Magnesium 1.8. 3. Mild non-gap metabolic acidosis secondary to acute kidney injury 4. Bladder mass scheduled for surgery on 11/09/2022 as outpatient 5. History of BPH currently with no urine retention and maintained on Flomax. 6. Bilateral hydronephrosis most likely associated with underlying bladder mass Plan: Switch bicarb drip to normal saline Replace potassium Patient will likely need cystoscopy during his admission and relief of obstruction if renal function is not much improved. He has significant deni ateral hydronephrosis. Repeat labs in a.m. Thank you for the consultation. We will continue to follow the patient with you during his hospitalization.
--- NOTE | 2022-10-31 11:49 | P.CRDCN ---
History of Present Illness Consult date: 10/31/22 History of present illness: HISTORY OF PRESENTING ILLNESS This is an 82-year-old male patient of Dr. Isaac Leggett with past medical history significant for coronary artery disease s/p bypass grafting 2006 with TY to LAD and SVG to PDA and OM, abdominal aortic aneurysm status post repair, chronic persistent atrial fibrillation on long-term anticoagulation with Eliquis, mo derate mitral regurgitation, hypertension, chronic systolic heart failure and dyslipidemia. We have been asked to see in consultation for non-ST elevated myocardial infarction. Patient presented to the hospital on 10/29 for generalized weakness and not feeling well, hematuria. Patient had a cystoscopy done in the office for bladder mass and scheduled to undergo a transurethral resection of the bladder tumor on November 09. Patient initially found to have a creatinine of 3.4 and has been followed by nephrology, urology. Patient is slightly confused this morning but he denies having any chest pain or shortness of breath. No lightheadedness. No palpitations. EKG atrial fibrillation CT of the abdomen and pelvis revealed severe left-sided hydronephrosis. Renal parenchymal thinning suggesting chronic process. Mild to moderate right-sided hydronephrosis. Laboratory reviewed, WBC on admission 17.2 repeat today 12.8, hemoglobin 15, platelets 159, sodium 137, potassium 3.9, creatinine 1.07 and troponin negative 1. Current cardiac medications include amlodipine 5 mg daily, Terazosin 5 mg daily, pravastatin 40 mg at bedtime, losartan 25 mg daily, atenolol 50 mg twice a day and Eliquis 5 mg twice a day. Echocardiogram performed in the office on 12/30/2021 revealed EF 45%, normal LV size. Mild ventricular hypertrophy. [id number] aortic regurgitation. Moderate mitral regurgitation. Moderate tricuspid regurgitation. Normal PAS P. Trace to mild pulmonic regurgitation. Lexiscan stress test 2018 revealed small fixed perfusion defect in the inferior wall suggestive prior myocardial infarction. EF 46% with inferior basal hypokinesia. No evidence of ischemia on EKG portion. REVIEW OF SYSTEMS At the time of my exam: CONSTITUTIONAL: Denies fever or chills. CARDIOVASCULAR: Denies chest pain, shortness of breath, orthopnea, PND or palpitations. RESPIRATORY: Denies cough. GASTROINTESTINAL: Denies abdominal pain, diarrhea, constipation, nausea or vomiting. MUSCULOSKELETAL: Denies myalgias. NEUROLOGIC: Denies numbness, tingling, headacbe or weakness. ENDOCRINE: Reports fatigue. HEMATOLOGIC: Denies history of anemia reports bleeding in urine. PHYSICAL EXAMINATION Blood pressure 158/97 heart rate 72, afebrile, pulse ox 96% on room air CONSTITUTIONAL: No apparent distress. HEENT: Head is normocephalic. Pupils are equal, round. Sclerae anicteric. Mucous membranes of the mouth are somewhat dry. No JVD. No carotid bruit. NG tube in place. CHEST EXAMINATION: Scattered rhonchi. No rales or wheezes. HEART EXAMINATION: Irregular rate and rhythm. S1, S2 heard. Systolic ejection murmur at the base, no gallops or rub. ABDOMEN: Soft, nontender. Positive bowel sounds. EXTREMITIES: 2+ peripheral pulses, no lower extremity edema and no calf tenderness. NEUROLOGIC EXAMINATION: Patient is awake, alert and oriented x3. ASSESSMENT Acute kidney injury Elevated troponin secondary to acute kidney injury Bladder mass Chronic persistent atrial fibrillation with rapid ventricular rate, currently controlled Chronic systolic heart failure Coronary artery disease status post bypass grafting in 2006 Hypertension Dyslipidemia PLAN Obtain 2-D echocardiogram Continue patient's home cardiac medications Further recommendations as patient progresses Thank you kindly for this consultation. Nurse Practitioner note has been reviewed, I agree with a documented findings and plan of care. Patient was seen and examined. Past Medical History Past Medical History: Atrial Fibrillation, Coronary Artery Disease (CAD), Hypertension, Osteoarthritis (OA), Pneumonia, Prostate Disorder Additional Past Medical History / Comment(s): pneumonia May 2020 after hernia surgery, Last Myocardial Infarction Date:: unknown History of Any Multi-Drug Resistant Organisms: None Reported Past Surgical History: Cholecystectomy, Coronary Bypass/CABG, Heart Catheterization With Stent, Hernia Repair, Joint Replacement Additional Past Surgical History / Comment(s): triple bypass 14 years ago, aortic aneurysm repair, rt hip replacement, left inguinal hernia repair, unsure how many cardiac stents Cystoscopy on 10/26/22 Past Anesthesia/Blood Transfusion Reactions: No Reported Reaction Date of Last Stent Placement:: unknown Past Psychological History: No Psychological Hx Reported Smoking Status: Former smoker Past Alcohol Use History: None Reported Additional Past Alcohol Use History / Comment(s): quit smoking 20 yrs. ago, 1ppd for 25 yrs. Past Drug Use History: None Reported - Past Family History Mother Family Medical History: No Reported History Father Family Medical History: Congestive Heart Failure (CHF) (Father at the age of 78 from CHF.), Hypertension Additional Family Medical History / Comment(s): Patient states that his parents never went to the doctor. He thinks his father of hypertensive disease. He does not know much about his mother. Denies any significant medical history in siblings, is and has kids with no significant medical. lives of at home. Brother(s) Family Medical History: No Reported History (patient has one brother no major issues.) Sister(s) Family Medical History: No Reported History (patient has 2 sisters no major medical problems) Son(s) Family Medical History: No Reported History (patient has 2 sons ok.) Daughter(s) Family Medical History: No Reported History (one daughter ok.) Medications and Allergies Home Medications Medication Instructions Recorded Confirmed Type Apixaban [Eliquis] 5 mg PO BID 07/21/17 10/29/22 History Losartan [Cozaar] 25 mg PO DAILY 07/21/17 10/29/22 History Pravastatin Sodium [Pravachol] 40 mg PO HS 07/21/17 10/29/22 History Terazosin [Hytrin] 5 mg PO DAILY 07/21/17 10/29/22 History atenoloL [Tenormin] 50 mg PO BID 08/26/18 10/29/22 History amLODIPine [Norvasc] 5 mg PO DAILY 05/12/20 10/29/22 History Tamsulosin HCl [Flomax] 0.4 mg PO DAILY 10/29/22 10/29/22 History Allergies Allergy/AdvReac Type Severity Reaction Status Date / Time No Known Allergies Allergy Verified 10/29/22 08:31 Physical Exam Vitals: Vital Signs Temp Pulse Pulse Resp BP BP BP 10/31/22 08:47 10/31/22 08:00 97.3 F L 71 18 158/97 10/31/22 03:15 98.1 F 67 16 168/99 10/31/22 01:30 97.3 F L 91 16 158/111 10/30/22 23:34 162/92 10/30/22 20:00 97.9 F 89 16 173/118 10/30/22 13:58 97.6 F 70 24 164/97 10/30/22 10:40 149/87 155/87 Pulse Ox 10/31/22 08:47 96 10/31/22 08:00 93 L 10/31/22 03:15 96 10/31/22 01:30 96 10/30/22 23:34 10/30/22 20:00 96 10/30/22 13:58 96 10/30/22 10:40 Intake and Output 10/30/22 10/31/22 10/31/22 22:59 06:59 14:59 Intake Total 1660 296 Output Total 525 1450 250 Balance 1135 -1450 46 Intake: Intake, IV Titration 1660 Amount Sodium Chloride 0.9% 1, 1660 000 ml @ 130 mls/hr IV . Q7H42M [facility] Rx#:[id number] Oral 296 Output: Urine 525 1450 250 Other: Voiding Method Urinal Diaper # Voids 1 1 Results 10/31/22 05:01 10/30/22 05:33 CBC 10/31/22 Range/Units 05:01 WBC 8.07 (4.50-10.00) X 10*3/uL RBC 3.25 L (4.40-5.60) X 10*6/uL Hgb 9.5 L (12.0-15.0) d/dL Hct 29.6 L (39.6-50.0) % Plt Count 157 (140-440) X 10*3/uL Current Medications Generic Name Dose Route Start Last Admin Trade Name Freq PRN Reason Stop Dose Admin Acetaminophen 650 mg 10/29/22 01:38 Acetaminophen Tab 325 Mg Tab PO Q6HR PRN Mild Pain or Fever > 100.5 Amlodipine Besylate 5 mg 10/29/22 09:00 10/30/22 08:27 Amlodipine 5 Mg Tab PO 5 mg DAILY MARLENE Administration Apixaban 5 mg 10/29/22 09:00 10/30/22 21:44 Apixaban 5 Mg Tab PO 5 mg BID MARLENE Administration Protocol Artificial Tears 2 drops 10/31/22 09:28 Artificial Tears-Hypromellose Drops 15 Ml Btl BOTH EYES QID PRN Dry Eye(s) Atenolol 50 mg 10/29/22 09:00 10/30/22 21:44 Atenolol 50 Mg Tab PO 50 mg BID MARLENE Administration Clonidine 0.1 mg 10/31/22 04:12 Clonidine Hcl 0.1 Mg Tab PO TID PRN Blood Pressure - High Doxazosin Mesylate 4 mg 10/29/22 09:00 10/30/22 08:28 Doxazosin 4 Mg Tab PO 4 mg DAILY MARLENE Administration Sodium Bicarbonate 150 ml/ 1,150 mls @ 75 mls/hr 10/31/22 10:00 Dextrose/Water IV .[id number] MARLENE Naloxone HCl 0.2 mg 10/29/22 01:38 Naloxone 0.4 Mg/Ml 1 Ml Vial IV Q2M PRN Opioid Reversal Ondansetron HCl 4 mg 10/29/22 01:38 Ondansetron 4 Mg/2 Ml Vial IVP Q8HR PRN Nausea And Vomiting Pravastatin Sodium 40 mg 10/29/22 21:00 10/30/22 21:44 Pravastatin Sodium 40 Mg Tab PO 40 mg HS MARLENE Administration Tamsulosin HCl 0.4 mg 10/31/22 09:00 Tamsulosin 0.4 Mg Cap.Er.24h PO DAILY MARLENE Intake and Output 10/30/22 10/31/22 10/31/22 22:59 06:59 14:59 Intake Total 1660 296 Output Total 525 1450 250 Balance 1135 -1450 46 Intake: Intake, IV Titration 1660 Amount Sodium Chloride 0.9% 1, 1660 000 ml @ 130 mls/hr IV . Q7H42M [facility] Rx#:[id number] Oral 296 Output: Urine 525 1450 250 Other: Voiding Method Urinal Diaper # Voids 1 1 10/31/22 05:01 10/30/22 05:33
[2022-10-31 11:51] LABS: BUN/Creat Ratio 15.35 Ratio (12.00-20.00); Blood Urea Nitrogen 39.9 mg/dL (9.0-27.0); Carbon Dioxide 19.2 mmol/L (21.6-31.8); Chloride 110 mmol/L (96-109); Glucose 96 mg/dL (70-110); Magnesium 1.6 mg/dL (1.5-2.4); Potassium 3.3 mmol/L (3.5-5.5); Sodium 143 mmol/L (135-145)
--- NOTE | 2022-10-31 12:38 | CA ---
Transthoracic Echo Report Name: Dago Lyman Age: 82 Gender: M : 1940 Exam Date: 10/31/2022 11:26 Exam Location: [place] [facility] Ht (in): 69 Wt (lb): 170 Ordering Physician: Yudy Olvera DO Attending/Referring Phys: [id number], May Photogeologist Grace Frausto RDCS Procedure CPT: Indications: stemi Cardiac Hx: Technical Quality: Good Contrast 1: Total Dose (mL): Contrast 2: Total Dose (mL): MEASUREMENTS (Male / Female) Normal Values 2D ECHO LV Diastolic Diameter PLAX 5.3 cm 4.2 - 5.9 / 3.9 - 5.3 cm LV Systolic Diameter PLAX 4.5 cm IVS Diastolic Thickness 1.8 cm 0.6 - 1.0 / 0.6 - 0.9 cm LVPW Diastolic Thickness 1.5 cm 0.6 - 1.0 / 0.6 - 0.9 cm LV Relative Wall Thickness 0.6 RV Internal Dim ED PLAX 4.3 cm LA Systolic Diameter LX 4.9 cm 3.0 - 4.0 / 2.7 - 3.8 cm LV Diastolic Volume MOD BP 137.3 cm??? 67 - 155 / 56 - 104 cm??? LV Systolic Volume MOD BP 95.4 cm??? 22 - 58 / 19 - 49 cm??? LV Ejection Fraction MOD BP 30.5 % >= 55 % LV Cardiac Index MOD BP 2492.7 cm???/min???m??? LV Diastolic Volume MOD 4C 129.1 cm??? LV Systolic Volume MOD 4C 108.2 cm??? LV Ejection Fraction MOD 4C 16.2 % LV Cardiac Index MOD 4C 1244.9 cm???/min???m??? LV Diastolic Length 4C 7.8 cm LV Systolic Length 4C 7.4 cm LV Diastolic Volume MOD 2C 130.1 cm??? LV Systolic Volume MOD 2C 81.1 cm??? LV Ejection Fraction MOD 2C 37.6 % LV Cardiac Index MOD 2C 2916.4 cm???/min???m??? LV Diastolic Length 2C 8.7 cm LV Systolic Length 2C 7.8 cm LA Volume 157.0 cm??? 18 - 58 / 22 - 52 cm??? M-MODE Aortic Root Diameter MM 3.8 cm MV E Point Septal Separation 1.4 cm AV Cusp Separation MM 2.1 cm DOPPLER AV Peak Velocity 144.9 cm/s AV Peak Gradient 8.4 mmHg AI Peak Velocity 449.3 cm/s AI Peak Gradient 80.7 mmHg AI Pressure Half Time 723.8 ms MV Area PHT 5.2 cm??? MR Peak Velocity 608.3 cm/s MR Peak Gradient 148.0 mmHg MV Deceleration Time 145.7 ms TR Peak Velocity 306.7 cm/s TR Peak Gradient 37.6 mmHg Right Atrial Pressure 15.0 mmHg Pulmonary Artery Systolic Pressu 52.6 mmHg Right Ventricular Systolic Press 52.6 mmHg FINDINGS Left Ventricle Left ventricular ejection fraction is estimated at 20 %. Left ventricular cavity size normal. Severely increased septal wall thickness. Severely increased left ventricular systolic volume .Severly decreased left ventricular ejection fraction. Right Ventricle Moderate right ventricular dilatation. Moderate pulmonary hypertension. Right ventricular systolic pressure estimated at 52 mm hg. Right Atrium Normal right atrial size. Left Atrium Moderately increased left atrial diameter. Severely increased left atrial volume. Severely increased left atrial area. Mitral Valve Mitral valve thickened. Mitral annular calcification. Cyebngeq-rb-eqildo mitral regurgitation. Aortic Valve Trileaflet aortic valve. Mild aortic regurgitation. Tricuspid Valve Prolapse of the anterior tricuspid valve leaflet. Prolapse of the posterior tricuspid valve leaflet. Ylcfsxrh-[id number] tricuspid regurgitation. Pulmonic Valve Structurally normal pulmonic valve. Oaqh-yb-tgqazkdi pulmonic regurgitation. Pericardium Normal pericardium. No pericardial effusion. Aorta Mild aortic dilatation at the level of the sinuses of valsalva 38 mm CONCLUSIONS Cardiomyopathy with severe LV systolic dysfunction Moderate pulmonary hypertension Left atrial enlargement Moderate to severe mitral regurgitation Moderate to severe tricuspid regurgitation Previewed by: Dr. Juan Carlos Leggett MD (Electronically Signed) Final Date: 31 October 2022 12:36
--- NOTE | 2022-10-31 14:02 | P.PN ---
Subjective Progress Note Date: 10/31/22 Renal ultrasound showed bilateral hydronephrosis, his creatinine is down to 2.6 from 3. Denies any flank pain, urine remains clear. post void residuals is 100 mL. Objective - Vital Signs Vital signs: Vital Signs Temp 97.3 F L 10/31/22 08:00 Pulse 72 10/31/22 08:45 Resp 18 10/31/22 08:45 BP 158/97 10/31/22 08:00 Pulse Ox 96 10/31/22 08:47 FiO2 Intake & Output 10/30/22 10/31/22 10/31/22 18:59 06:59 18:59 Intake Total 2860 296 Output Total 650 1975 950 Balance 2209 Intake: Intake, IV Titration 1660 Amount Sodium Chloride 0.9% 1, 1660 000 ml @ 130 mls/hr IV . Q7H42M [facility] Rx#:[id number] Oral 1200 296 Output: Urine 650 1975 950 Other: Voiding Method External Catheter Urinal Urinal Diaper Diaper # Voids 1 1 1 - Labs CBC & Chem 7: 10/31/22 05:01 10/31/22 05:01 Labs: Abnormal Lab Results - Last 24 Hours (Table) 10/31/22 10/31/22 Range/Units 05:01 05:01 RBC 3.25 L (4.40-5.60) X 10*6/uL Hgb 9.5 L (12.0-15.0) d/dL Hct 29.6 L (39.6-50.0) % Lymphocytes # 0.35 L (0.90-5.00) X 10*3/uL Potassium 3.3 L (3.5-5.5) mmol/L Chloride 110 H (96-109) mmol/L Carbon Dioxide 19.2 L (21.6-31.8) mmol/L Anion Gap 13.80 H (4.00-12.00) mmol/L BUN 39.9 H (9.0-27.0) mg/dL Creatinine 2.6 H (0.6-1.5) mg/dL Est GFR (CKD-EPI) 24 L (>=60) Calcium 8.0 L (8.7-10.3) mg/dL Assessment and Plan Assessment: 82-year-old male with history of bladder mass scheduled to undergo transurtheral resection and bilateral RP of bladder tumor by Dr. Garcia on November 09. admitted to the hospital with acute kidney injury and weakness. Creatinine is slowly trending down to 2.6 from 3. Urinalysis on presentation is concerning for UTI. At this point recommend obtaining a urine culture and treating accordingly for his Surgery on November 09. Given his creatinine is trending down and the evidence of UTI no acute intervention from urology standpoint at this time, advised to keep the surgery for November 09. Patient will require sterile urine prior to proceeding with TURBTs with bilateral retrogrades and possible stent. -Recommend cardiac clearance prior to surgery -Urine culture -Keep surgery with Dr. Bravo for November 09
[2022-10-31] MEDS ORDERED: POTASSIUM CHLORIDE ER 20 MEQ TAB.ER PO STA (14:20)
[2022-10-31] MEDS ORDERED: MAGNESIUM SULFATE-D5W PMX 1 GM in DEXTROSE/WATER 1 100ML.BAG IVPB ONE (14:30)
--- NOTE | 2022-10-31 14:37 | P.PN ---
Subjective Progress Note Date: 10/31/22 (delayed charting seen at 0915) Patient is an 82-year-old male for history of atrial fibrillation on anticoagulation, bladder mass, hypertension, and dyslipidemia who presented to the ER with complaints of generalized weakness and falls. On arrival to the ER his vital signs were within normal limits. Initial laboratory analysis showed white blood cell count of 14.8, he will be 10.3, sodium 135, creatinine 3.41, bilirubin 1.7, and troponin 0.037. He was admitted for acute renal failure and possibly complicated urinary tract infection. He was started on IV fluids and Rocephin. Neurology was consulted due to his newly diagnosed bladder mass. He was continued on fluids. Renal ultrasound did show left-sided hydronephrosis. Cardiology was consulted due to elevated troponins. Patient seen and examined at bedside. She denies any chest pain or shortness of breath. He is urinating frequently. He is frustrated as he feels he has not been adequately updated on his plan of care. We discussed in detail his acute kidney injury, his acidosis, his elevated troponin and how this relates into workup for his bladder cancer. Vital signs reviewed General: nontoxic, no distress, appears at stated age Cardiovascular: S1S2 reg, no murmur, positive posterior tibial pulse bilateral, Lungs: CTA bilateral, no rhonchi, no rales , no accessory muscle use Abdominal: soft, nontender to palpation, no guarding, no appreciable organomegaly Ext: no gross muscle atrophy, no edema b/l lower extremities, no contractures Neuro: CN II-XI grossly intact, no focal neuro deficits Psych: Alert, oriented, appropriate affect Assessment/Plan: Acute kidney injury Left-sided hydronephrosis, bladder tumor Anion gap metabolic acidosis Hyperchloremia Hypokalemia Hypomagnesemia Generalized weakness - D/W Nephrology and consult placed. recommends NS for IVF luids - hold cozaar, avoid nephrotox agents - Urology note reviewed: Continue with planned surgery on 11/09 -Potassium chloride 20 mEq 1 now, magnesium 1 g IV piggyback 1 now -Follow BMP in a.m. Urinary tract infection, present on admission -Unfortunately no urine culture was obtained -Patient has received 2 doses of Rocephin. Will complete another 3 days of antibiotics. Type II non-STEMI, likely related MARION HTN CAD s/p bypass HLD Atrial fibrillation -Anticoagulated with Eliquis -Given scheduled urologic procedure on 11/09/22 and patient's known history of coronary artery disease, consult cardiology -Check echocardiogram -Continue with Norvasc 5 mg daily, atenolol 50 mg twice daily, Cardura 4 mg daily -Pravachol 40 mg at night -Not chronically on aspirin -Cozaar is on hold due to MARION Anemia, stable -Chronic in nature and will defer further evaluation to the outpatient setting. -Follow CBC Imaging: None new Data Review: Vital signs reviewed and temperature 97.3, pulse 71, respirations 18, blood pressure 158/97, O2 sat 93% on room air Labs reviewed from today and white blood cell count 8, hemoglobin 9.5, potassium 3.3, chloride 110, carbon dioxide 19.2, anion gap 13.8, creatinine 2.6, BUN 39.9 DVT prophylaxis: Eliquis Anticipated discharge date: Pending Clinical course Anticipated discharge place: Pending Clinical course This dictation was prepared using [employer] voice recognition software. Though every attempt is made to correct errors during dictation some may still exist. Objective - Vital Signs Vital signs: Vital Signs Temp 97.3 F L 10/31/22 08:00 Pulse 72 10/31/22 08:45 Resp 18 10/31/22 08:45 BP 158/97 10/31/22 08:00 Pulse Ox 96 10/31/22 08:47 FiO2 Intake & Output 10/30/22 10/31/22 10/31/22 18:59 06:59 18:59 Intake Total 2860 296 Output Total 650 1974 950 Balance 2209 1974 Intake: Intake, IV Titration 1660 Amount Sodium Chloride 0.9% 1, 1660 000 ml @ 130 mls/hr IV . [id number] [facility] Rx#:[id number] Oral 1200 296 Output: Urine 650 1975 950 Other: Voiding Method External Catheter Urinal Urinal Diaper Diaper # Voids 1 1 1 - Labs CBC & Chem 7: 10/31/22 05:01 10/31/22 05:01 Labs: Abnormal Lab Results - Last 24 Hours (Table) 10/31/22 10/31/22 Range/Units 05:01 05:01 RBC 3.25 L (4.40-5.60) X 10*6/uL Hgb 9.5 L (12.0-15.0) d/dL Hct 29.6 L (39.6-50.0) % Lymphocytes # 0.35 L (0.90-5.00) X 10*3/uL Potassium 3.3 L (3.5-5.5) mmol/L Chloride 110 H (96-109) mmol/L Carbon Dioxide 19.2 L (21.6-31.8) mmol/L Anion Gap 13.80 H (4.00-12.00) mmol/L BUN 39.9 H (9.0-27.0) mg/dL Creatinine 2.6 H (0.6-1.5) mg/dL Est GFR (CKD-EPI) 24 L (>=60) Calcium 8.0 L (8.7-10.3) mg/dL
[2022-10-31] MEDS: PRAVASTATIN SODIUM 40 MG TAB PO SCH (20:43)
[2022-11-01] MEDS: LACTATED RINGERS 1,000 ML IV SCH ×2 (00:56→17:19)
[2022-11-01] MEDS ORDERED: POTASSIUM CHLORIDE ER 20 MEQ TAB.ER PO STA ×2 (02:20→10:50)
[2022-11-01 06:54] LABS: HGB 10.2 gm/dL (13.0-17.5); MCH 30.4 pg (25.0-35.0); MCHC 33.9 g/dL (31.0-37.0); MCV 89.5 fL (80.0-100.0); Mean Platelet Volume 9.2; Platelet Count 165 k/uL (150-450); RBC 3.35 m/uL (4.30-5.90); RDW 13.9 % (11.5-15.5); WBC 6.6 k/uL (3.8-10.6)
[2022-11-01 06:58] LABS: African American GFR (CKD) 28 (>60 ml/min/1.73 sqM); Anion Gap 8 mmol/L; Blood Urea Nitrogen 36 mg/dL (9-20); Calcium 7.7 mg/dL (8.4-10.2); Carbon Dioxide 24 mmol/L (22-30); Chloride 108 mmol/L (98-107); Glucose 97 mg/dL (74-99); Magnesium 1.7 mg/dL (1.6-2.3); Non-African American GFR(CKD) 24 (>60 ml/min/1.73 sqM); Potassium 3.4 mmol/L (3.5-5.1); Sodium 140 mmol/L (137-145)
[2022-11-01] MEDS: APIXABAN 5 MG TAB PO SCH ×2 (08:58→21:35)
[2022-11-01] MEDS: SODIUM BICARBONATE TAB 650 MG TAB PO SCH ×2 (08:58→21:35)
[2022-11-01] MEDS: atenoloL 50 MG TAB PO SCH ×2 (08:58→21:35)
[2022-11-01] MEDS: amLODIPine 5 MG TAB PO SCH (08:59)
[2022-11-01] MEDS: DOXAZOSIN 4 MG TAB PO SCH (08:59)
[2022-11-01] MEDS: TAMSULOSIN 0.4 MG CAP.ER.24H PO SCH (08:59)
--- NOTE | 2022-11-01 09:48 | P.PN ---
Subjective Patient is seen for follow-up for acute kidney injury. He has a bladder mass with bilateral hydronephrosis and is scheduled for surgery with urology on 11/09/2022. Currently maintained on IV antibiotics for underlying UTI. Urine culture not available yet. Patient is maintained on IV fluids. Objective - Vital Signs Vital signs: Vital Signs Temp 97.9 F 11/01/22 07:43 Pulse 68 11/01/22 07:43 Resp 18 11/01/22 07:43 BP 154/95 11/01/22 07:43 Pulse Ox 95 11/01/22 07:43 FiO2 Intake & Output 10/31/22 11/01/22 11/01/22 18:59 06:59 18:59 Intake Total 414 Output Total 1950 1999 Balance -1535 Intake: Oral 414 Output: Urine 1949 1999 Other: Voiding Method Urinal Diaper Diaper External Catheter # Voids 1 - Exam Patient is awake, comfortable, no acute distress. Examination of the heart S1 and S2 Examination of the lungs bilateral breath sounds are Abdomen is soft nontender Examination lower extremities shows no evidence of edema LAW[employer] MECH[employer]IC exam grossly intact - Labs CBC & Chem 7: 11/01/22 06:31 11/01/22 06:31 Labs: Abnormal Lab Results - Last 24 Hours (Table) 10/31/22 11/01/22 11/01/22 Range/Units 05:01 06:31 06:31 RBC 3.35 L (4.30-5.90) m/uL Hgb 10.2 L (13.0-17.5) gm/dL Hct 30.0 L (39.0-53.0) % Potassium 3.3 L 3.4 L (3.5-5.5) mmol/L Chloride 110 H 108 H (96-109) mmol/L Carbon Dioxide 19.2 L (21.6-31.8) mmol/L Anion Gap 13.80 H (4.00-12.00) mmol/L BUN 39.9 H 36 H (9.0-27.0) mg/dL Creatinine 2.6 H 2.37 H (0.6-1.5) mg/dL Est GFR (CKD-EPI) 24 L (>=60) Calcium 8.0 L 7.7 L (8.7-10.3) mg/dL Assessment and Plan Assessment: 1. Acute kidney injury, obstructive uropathy as ultrasound shows bilateral hydronephrosis.. UA shows 1+ protein and large blood. Patient has an underlying bladder mass scheduled for surgery on 11/09/2022. No obvious nep hrotoxic agents notified. Renal function has improved with IV hydration. They may be a hypovolemic component. Agree with holding angiotensin receptor blockers. 2. Hypokalemia currently being replaced. Patient is not on diuretics. Oral intake seems fair. Magnesium 1.8. 3. Mild non-gap metabolic acidosis secondary to acute kidney injury 4. Bladder mass scheduled for surgery on 11/09/2022 as outpatient 5. History of BPH currently with no urine retention and maintained on Flomax. 6. Bilateral hydronephrosis most likely associated with underlying bladder mass Plan: Continue with IV fluids Can DC sodium bicarb Follow-up on urine cultures Replace potassium
--- NOTE | 2022-11-01 10:17 | PN ---
PROGRESS NOTE SUBJECTIVE: Dago is an 82-year-old gentleman, who is admitted to hospital with hematuria. He is waiting on cystoscopy and removal of a bladder mass. Has a history of atrial fibrillation, hypertension, and dyslipidemia. An echocardiogram on this admission revealed severe LV systolic dysfunction. The patient is currently on to Tenormin 50 b.i.d., amlodipine 5 daily, Hytrin, Pravachol, Cozaar, and Eliquis. Last night, he had a 9-beat run of nonsustained VT. Electrolytes showed that his potassium was low. It has been supplemented. This morning, it is 3.4 and we are going to further supplement it today. Lab shows that his renal functions are improving. BUN has come down from 46 to 36, creatinine is also improving. OBJECTIVE: GENERAL: Comfortable at rest. VITAL SIGNS: Stable. CHEST: Reveals good air entry bilaterally. HEART: Reveals first and second heart sounds, and a systolic murmur at the apex. ABDOMEN: Soft. EXTREMITIES: Did not reveal any edema. Peripheral pulses are felt. ASSESSMENT: 1. Atrial fibrillation with controlled ventricular rate. 2. Acute renal insufficiency. 3. Nonsustained ventricular tachycardia. 4. Cardiomyopathy. PLAN: I will continue the beta blockers, supplement the potassium, continue rest of his medications. MMODL / IJN: [id number] /
--- NOTE | 2022-11-01 10:19 | P.PN ---
Subjective Creatinine down to 2.3 from 2.6 Denies any flank pain, urine remains clear Objective - Vital Signs Vital signs: Vital Signs Temp 97.9 F 11/01/22 07:43 Pulse 68 11/01/22 07:43 Resp 18 11/01/22 07:43 BP 154/95 11/01/22 07:43 Pulse Ox 95 11/01/22 07:43 FiO2 Intake & Output 10/31/22 11/01/22 11/01/22 18:59 06:59 18:59 Intake Total 414 Output Total 1950 1999 Balance -1535 Intake: Oral 414 Output: Urine 1949 1999 Other: Voiding Method Urinal Diaper Diaper External Catheter # Voids 1 - Constitutional General appearance: Present: no acute distress - Gastrointestinal General gastrointestinal: Present: soft. Absent: distended, tenderness - Psychiatric Psychiatric: Present: A&O x's 3 - Labs CBC & Chem 7: 11/01/22 06:31 11/01/22 06:31 Labs: Abnormal Lab Results - Last 24 Hours (Table) 10/31/22 11/01/22 11/01/22 Range/Units 05:01 06:31 06:31 RBC 3.35 L (4.30-5.90) m/uL Hgb 10.2 L (13.0-17.5) gm/dL Hct 30.0 L (39.0-53.0) % Potassium 3.3 L 3.4 L (3.5-5.5) mmol/L Chloride 110 H 108 H (96-109) mmol/L Carbon Dioxide 19.2 L (21.6-31.8) mmol/L Anion Gap 13.80 H (4.00-12.00) mmol/L BUN 39.9 H 36 H (9.0-27.0) mg/dL Creatinine 2.6 H 2.37 H (0.6-1.5) mg/dL Est GFR (CKD-EPI) 24 L (>=60) Calcium 8.0 L 7.7 L (8.7-10.3) mg/dL Assessment and Plan Assessment: 82-year-old male with history of bladder mass scheduled to undergo transurtheral resection and bilateral RP of bladder tumor by Dr. Garcia on November 09. admitted to the hospital with acute kidney injury and weakness. Creatinine is slowly trending down to 2.3 f. Urinalysis on presentation is concerning for UTI. At this point recommend obtaining a urine culture and treating accordingly for his Surgery on November 09. Given his creatinine is trending down and the evidence of UTI no acute intervention from urology standpoint at this time, advised to keep the surgery for November 09. Patient will require sterile urine prior to proceeding with TURBTs with bilateral retrogrades and possible stent. -Recommend cardiac clearance prior to surgery -F/U on Urine culture -Keep surgery with Dr. Bravo for November 09
[2022-11-01] MEDS ORDERED: MAGNESIUM SULFATE-D5W PMX 1 GM in DEXTROSE/WATER 1 100ML.BAG IVPB ONE (10:50)
--- NOTE | 2022-11-01 13:11 | P.PN ---
Subjective Progress Note Date: 11/01/22 Patient is an 82-year-old male for history of atrial fibrillation on anticoagulation, bladder mass, hypertension, and dyslipidemia who presented to the ER with complaints of generalized weakness and falls. On arrival to the ER his vital signs were within normal limits. Initial laboratory analysis showed white blood cell count of 14.8, he will be 10.3, sodium 135, creatinine 3.41, bilirubin 1.7, and troponin 0.037. He was admitted for acute renal failure and possibly complicated urinary tract infection. He was started on IV fluids and Rocephin. Neurology was consulted due to his newly diagnosed bladder mass. He was continued on fluids. Renal ultrasound did show left-sided hydronephrosis. Cardiology was consulted due to elevated troponins. Patient seen and examined at bedside. He is upset because Dr. Leggett told him that this heart is not functioning and he thought that meant that he only had a few hours to live. He denies chest pain, SOB, nausea, or diarrhea. His and daughter presented during out evaluation. I discussed with him that he had a known hx of systolic cardiomyopathy but that his EF was worse than prior and we would need more recommendations from cardio on what to do prior to surgery. All questions answered. An extensive conversation was had abou what cardiomyopathy means and how this could be contributing to his weakness and fatigue over the last few months Vital signs reviewed General: nontoxic, no distress, appears at stated age Cardiovascular: S1S2 reg, no murmur, positive posterior tibial pulse bilateral, Lungs: CTA bilateral, no rhonchi, no rales , no accessory muscle use Abdominal: soft, nontender to palpation, no guarding, no appreciable organomegaly Ext: no gross muscle atrophy, no edema b/l lower extremities, no contractures Neuro: CN II-XI grossly intact, no focal neuro deficits Psych: Alert, oriented, appropriate affect Assessment/Plan: Acute kidney injury Left-sided hydronephrosis, bladder tumor Anion gap metabolic acidosis Hyperchloremia Hypokalemia Hypomagnesemia Generalized weakness -Nephrology note reviewed: Continue with IV fluids, DC sodium bicarb, follow up on urine culture -Urology note reviewed: Continue with antibiotics, await cultures, cardiac clearance prior to surgery on November 09 - hold cozaar, avoid nephrotox agents -Repeat Potassium chloride 20 mEq 1 now, magnesium 1 g IV piggyback 1 now -Follow BMP and Mg in a.m. Urinary tract infection, present on admission -Unfortunately no urine culture was obtained, awiait one from 10/31/22 -Brannon Mora # 4 Worsening systolic cardiomyopathy ejection fraction 20%, prior 45% -Cardiology note reviewed-continue with beta blockers, potassium -Cozaar on hold secondary to acute renal failure, continue with atenolol 50 mg twice daily -Cozaar is on hold due to MARION Type II non-STEMI, likely related MARION HTN CAD s/p bypass HLD Atrial fibrillation -Anticoagulated with Eliquis -Continue with Norvasc 5 mg daily, atenolol 50 mg twice daily, Cardura 4 mg daily -Pravachol 40 mg at night -Not chronically on aspirin Anemia, stable -Chronic in nature and will defer further evaluation to the outpatient setting. -Follow CBC Imaging: Echocardiogram reviewed-ejection fraction 20% (last known 45%, moderate pulmonary hypertension, moderate to severe mitral regurg, moderate to severe tricuspid regurgitation Data Review: Vitals reviewed temperature 97.9, pulse 68, respirations 18, blood pressure 154/95, O2 sat 95% on room air Labs reviewed and remarkable for hemoglobin 10.2, potassium 3.4, creatinine 2.37, magnesium 1.7 Telemetry reviewed. Patient has had multiple 2 seconds all overnight. He also had one 9 beat run of nonsustained ventricular tachycardia DVT prophylaxis: Eliquis Anticipated discharge date: Pending Clinical course Anticipated discharge place: Pending Clinical course This dictation was prepared using [employer] mobile voice recognition software. Though every attempt is made to correct errors during dictation some may still exist. Objective - Vital Signs Vital signs: Vital Signs Temp 97.9 F 11/01/22 07:43 Pulse 68 11/01/22 07:43 Resp 18 11/01/22 07:43 BP 154/95 11/01/22 07:43 Pulse Ox 95 11/01/22 07:43 FiO2 Intake & Output 10/31/22 11/01/22 11/01/22 18:59 06:59 18:59 Intake Total 414 Output Total 1949 1999 Balance -1535 Intake: Oral 414 Output: Urine 1949 1999 Other: Voiding Method Urinal Diaper Diaper External Catheter # Voids 1 - Labs CBC & Chem 7: 11/01/22 06:31 11/01/22 06:31 Labs: Abnormal Lab Results - Last 24 Hours (Table) 11/01/22 11/01/22 Range/Units 06:31 06:31 RBC 3.35 L (4.30-5.90) m/uL Hgb 10.2 L (13.0-17.5) gm/dL Hct 30.0 L (39.0-53.0) % Potassium 3.4 L (3.5-5.1) mmol/L Chloride 108 H (98-107) mmol/L BUN 36 H (9-20) mg/dL Creatinine 2.37 H (0.66-1.25) mg/dL Calcium 7.7 L (8.4-10.2) mg/dL
[2022-11-01 17:44] LABS: Appearance,Urine Clear (Clear); Bilirubin,Urine Negative (Negative); Blood,Urine Trace (Negative); Color,Urine Colorless; Glucose,Urine (UA) Negative (Negative); Ketones,Urine Negative (Negative); Leukocyte Esterase,Urine Negative (Negative); Mucus,Urine Rare /hpf; Nitrite,Urine Negative (Negative); PH, Urine 6.5 (5.0-8.0); Protein,Urine Trace (Negative); RBC,Urine <1 /hpf (0-5); Specific Gravity,Urine 1.006 (1.001-1.035); Urobilinogen,Urine <2.0 mg/dL (<2.0); WBC,Urine 1 /hpf (0-5)
[2022-11-01] MEDS: PRAVASTATIN SODIUM 40 MG TAB PO SCH (21:35)
[2022-11-02] MEDS: LACTATED RINGERS 1,000 ML IV SCH ×2 (03:45→15:03)
[2022-11-02 07:14] LABS: HCT 31.5 % (39.0-53.0); HGB 10.5 gm/dL (13.0-17.5); MCHC 33.2 g/dL (31.0-37.0); MCV 90.2 fL (80.0-100.0); Mean Platelet Volume 8.8; Platelet Count 176 k/uL (150-450); RBC 3.49 m/uL (4.30-5.90); RDW 13.9 % (11.5-15.5); WBC 7.3 k/uL (3.8-10.6)
[2022-11-02 07:23] LABS: African American GFR (CKD) 27 (>60 ml/min/1.73 sqM); Anion Gap 7 mmol/L; Blood Urea Nitrogen 36 mg/dL (9-20); Calcium 8.2 mg/dL (8.4-10.2); Carbon Dioxide 25 mmol/L (22-30); Chloride 107 mmol/L (98-107); Glucose 97 mg/dL (74-99); Magnesium 1.9 mg/dL (1.6-2.3); Non-African American GFR(CKD) 23 (>60 ml/min/1.73 sqM); Potassium 3.7 mmol/L (3.5-5.1); Sodium 139 mmol/L (137-145)
[2022-11-02] MEDS: SODIUM BICARBONATE TAB 650 MG TAB PO SCH (09:10)
[2022-11-02] MEDS: APIXABAN 5 MG TAB PO SCH (09:10)
[2022-11-02] MEDS: TAMSULOSIN 0.4 MG CAP.ER.24H PO SCH (09:10)
[2022-11-02] MEDS: DOXAZOSIN 4 MG TAB PO SCH (09:10)
[2022-11-02] MEDS: amLODIPine 5 MG TAB PO SCH (09:10)
[2022-11-02] MEDS: carvediloL 6.25 MG TAB PO SCH ×2 (09:10→17:11)
--- NOTE | 2022-11-02 11:02 | P.PN ---
Subjective HISTORY OF PRESENT ILLNESS: This is an 82-year-old male patient of Dr. Isaac Leggett with past medical history significant for coronary artery disease s/p bypass grafting 2006 with TY to LAD and SVG to PDA and OM, abdominal aortic aneurysm status post repair, chronic persistent atrial fibrillation on long-term anticoagulation with Eliquis, moderate mitral regurgitation, hypertension, chronic systolic heart failure and dyslipidemia. We have been asked to see in consultation for non-ST elevated myocardial infarction. Patient presented to the hospital on 10/29 for generalized weakness and not feeling well, hematuria. Patient had a cystoscopy done in the office for bladder mass and scheduled to undergo a transurethral r esection of the bladder tumor on November 09. Patient initially found to have a creatinine of 3.4 and has been followed by nephrology, urology. Patient is slightly confused this morning but he denies having any chest pain or shortness of breath. No lightheadedness. No palpitations. EKG atrial fibrillation CT of the abdomen and pelvis revealed severe left-sided hydronephrosis. Renal parenchymal thinning suggesting chronic process. Mild to moderate right-sided hydronephrosis. Laboratory reviewed, WBC on admission 17.2 repeat today 12.8, hemoglobin 15, platelets 159, sodium 137, potassium 3.9, creatinine 1.07 and troponin negative 1. Current cardiac medications include amlodipine 5 mg daily, Terazosin 5 mg daily, pravastatin 40 mg at bedtime, losartan 25 mg daily, atenolol 50 mg twice a day and Eliquis 5 mg twice a day. Echocardiogram performed in the office on 12/30/2021 revealed EF 45%, normal LV size. Mild ventricular hypertrophy. [id number] aortic regurgitation. Moderate mitral regurgitation. Moderate tricuspid regurgitation. Normal PAS P. Trace to mild pulmonic regurgitation. Lexiscan stress test 2018 revealed small fixed perfusion defect in the inferior wall suggestive prior myocardial infarction. EF 46% with inferior basal hypokinesia. No evidence of ischemia on EKG portion. 11/02/2022 Patient examined this morning at the bedside. He denies chest pain or pressure. He denies SOB. Echocardiogram completed revealing ejection fraction 20%, moderate to severe mitral regurgitation, mild aortic regurgitation, moderate to severe tricuspid regurgitation, mild to moderate pulmonic regurgitation, mild aortic dilatation. Telemetry reveals atrial fibrillation with controlled ventricular rates. Patient having 2 second pauses on telemetry which is acceptable as patient is in atrial fibrillation. Blood pressure elevated with a recent reading of 168/86 PHYSICAL EXAM: VITAL SIGNS: Reviewed. GENERAL: Well-developed in no acute distress. NECK: Supple. No JVD or thyromegaly LUNGS: Respirations even and unlabored. Lungs essentially clear to auscultation bilaterally. HEART: Irregular rate and rhythm. S1 and S2 heard. + systolic murmur EXTREMITIES: Normal range of motion. No clubbing or cyanosis. Peripheral pulses intact. No lower extremity edema ASSESSMENT: Acute kidney injury Elevated troponin secondary to acute kidney injury Bladder mass with hematuria Persistent atrial fibrillation with rapid ventricular rate, currently controlled Chronic systolic heart failure, EF decreased to 20%, previously 45% Coronary artery disease status post bypass grafting in 2006 Hypertension Dyslipidemia Nonsustained VT PLAN: Discontinue atenolol Begin Coreg 6.25mg BID. Will increase as patient can tolerate Losartan remains on hold due to MARION Ideally, would like to DC Norvasc due to cardiomyopathy. However, will continue at this time as patient has uncontrolled blood pressures Increase Pravachol to 80 mg at night Recommend monitoring patient for an additional 24 hours Patient is high risk to undergo surgery. However, there are no absolute contraindications from a cardiac standpoint Further recommendations pending patient course Nurse practitioner note has been reviewed by physician. Signing provider agrees with the documented findings, assessment, and plan of care. Objective - Vital Signs Vital signs: Vital Signs Temp 98.7 F 11/02/22 07:28 Pulse 69 11/02/22 07:28 Resp 16 11/02/22 07:28 BP 164/93 11/02/22 07:28 Pulse Ox 93 L 11/02/22 08:00 FiO2 Intake & Output 11/01/22 11/02/22 11/02/22 18:59 06:59 18:59 Intake Total 360 118 Output Total 1420 2925 Balance -1060 -2807 Intake: Oral 360 118 Output: Urine 1420 2925 Other: Voiding Method Diaper Diaper Diaper External Catheter External Catheter External Catheter - Labs CBC & Chem 7: 11/02/22 06:26 11/02/22 06:26 Labs: Abnormal Lab Results - Last 24 Hours (Table) 11/01/22 11/02/22 11/02/22 Range/Units 17:23 06:26 06:26 RBC 3.49 L (4.30-5.90) m/uL Hgb 10.5 L (13.0-17.5) gm/dL Hct 31.5 L (39.0-53.0) % BUN 36 H (9-20) mg/dL Creatinine 2.47 H (0.66-1.25) mg/dL Calcium 8.2 L (8.4-10.2) mg/dL Urine Protein Trace H (Negative) Urine Blood Trace H (Negative) Urine Mucus Rare H (None) /hpf Microbiology - Last 24 Hours (Table) 10/31/22 13:15 Urine Culture - Final Urine,Voided
--- NOTE | 2022-11-02 12:30 | P.PN ---
Subjective Patient is seen for follow-up for acute kidney injury. He has a bladder mass with bilateral hydronephrosis and is scheduled for surgery with urology on 11/09/2022. Currently maintained on IV antibiotics for underlying UTI. Urine culture not available yet. Patient is maintained on IV fluids. Serum creatinine was down to 2.37 from 3.0 on initial admission. It is 2.47 today. Objective - Vital Signs Vital signs: Vital Signs Temp 98.7 F 11/02/22 07:28 Pulse 69 11/02/22 07:28 Resp 16 11/02/22 07:28 BP 164/93 11/02/22 07:28 Pulse Ox 93 L 11/02/22 08:00 FiO2 Intake & Output 11/01/22 11/02/22 11/02/22 18:59 06:59 18:59 Intake Total 360 118 Output Total 1420 2925 Balance -1060 -2807 Intake: Oral 360 118 Output: Urine 1420 2925 Other: Voiding Method Diaper Diaper Diaper External Catheter External Catheter External Catheter - Exam Patient is awake, comfortable, no acute distress. 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 Acute kidney injury, obstructive uropathy as ultrasound shows bilateral hydronephrosis.. UA shows 1+ protein and large blood. Patient has an underlying bladder mass scheduled for surgery on 11/09/2022. No obvious nephrotoxic agents notified. Renal function has improved with IV hydration. There is likely a hypovolemic component. Agree with holding angiotensin receptor blockers. 2. Hypokalemia currently being replaced. Patient is not on diuretics. Oral intake seems fair. Magnesium 1.8. 3. Mild non-gap metabolic acidosis secondary to acute kidney injury 4. Bladder mass scheduled for surgery on 11/09/2022 as outpatient 5. History of BPH currently with no urine retention and maintained on Flomax. 6. Bilateral hydronephrosis most likely associated with underlying bladder mass Plan: Continue with IV fluids DC sodium bicarb Follow-up on urine cultures
--- NOTE | 2022-11-02 13:35 | P.PN ---
Subjective Progress Note Date: 11/02/22 (delayed charting seen at 0830) Patient is an 82-year-old male for history of atrial fibrillation on anticoagulation, bladder mass, hypertension, and dyslipidemia who presented to the ER with complaints of generalized weakness and falls. On arrival to the ER his vital signs were within normal limits. Initial laboratory analysis showed white blood cell count of 14.8, he will be 10.3, sodium 135, creatinine 3.41, bilirubin 1.7, and troponin 0.037. He was admitted for acute renal failure and possibly complicated urinary tract infection. He was started on IV fluids and Rocephin. Neurology was consulted due to his newly diagnosed bladder mass. He was continued on fluids. Renal ultrasound did show left-sided hydronephrosis. Cardiology was consulted due to elevated troponins he had an echo which showed EF 20% and for the time being cardio recommends medical management. Nephrology was consulted and recommended IV fluids. Patient seen and examined at bedside. He is very upset that is coffee is cold today. He denies any chest pain, SOB, nausea or vomiting. He is frustrated about being in the hospital still. Vital signs reviewed General: nontoxic, no distress, appears at stated age Cardiovascular: S1S2 reg, no murmur, positive posterior tibial pulse bilateral, Lungs: CTA bilateral, no rhonchi, no rales , no accessory muscle use Abdominal: soft, nontender to palpation, no guarding, no appreciable organomegaly Ext: no gross muscle atrophy, no edema b/l lower extremities, no contractures Neuro: CN II-XI grossly intact, no focal neuro deficits Psych: Alert, oriented, appropriate affect Assessment/Plan: Acute kidney injury Left-sided hydronephrosis, bladder tumor Generalized weakness - Nephrology note reviewed-continue with IV fluids, - Urology note reviewed: Outpatient surgery on 11/09/22 - hold cozaar, avoid nephrotox agents - Follow BMP and Mg in a.m. Urinary tract infection, present on admission -Unfortunately no urine culture was obtained on admission, Culture from 10/31/22 was negative -[place] D # 5 Worsening systolic cardiomyopathy ejection fraction 20%, prior 45% - case discussed with cardiology in detail. They do not recommend any further workup as far as cardiac catheterization or stress test at this time. Recommend transitioning from atenolol to Coreg with close follow-up of blood pressures. His blood pressure remains controlled than likely will be cleared tomorrow for discharge by cardiology. Ideally, off of Norvasc but this will be delayed until blood pressures are controlled. -Cozaar is on hold due to MARION Type II non-STEMI, likely related MARION HTN CAD s/p bypass HLD Atrial fibrillation -Anticoagulated with Eliquis -Continue with Norvasc 5 mg daily, atenolol 50 mg twice daily, transitioned to coreg 6.25 mg BID, Cardura 4 mg daily -Pravachol 40 mg at night -Not chronically on aspirin Anemia, stable -Chronic in nature and will defer further evaluation to the outpatient setting. -Follow CBC Resolved: Hypokalemia Hypomagnesemia Anion gap metabolic acidosis Hyperchloremia Imaging: Echocardiogram reviewed-ejection fraction 20% (last known 45%, moderate pulmonary hypertension, moderate to severe mitral regurg, moderate to severe tr icuspid regurgitation Data Review: Vitals reviewed and temperature 90.7, pulse 69, respirations 16, blood pressure 164/93, O2 sat 95% on room air Labs reviewed and remarkable for syncope 10.5, BUN 36, creatinine 2.47 Urine culture negative - Patients [facility] updated on plan of care. DVT prophylaxis: Eliquis Anticipated discharge date: likely in AM Anticipated discharge place: Home with home health This dictation was prepared using [employer] voice recognition software. Though every attempt is made to correct errors during dictation some may still exist. Objective - Vital Signs Vital signs: Vital Signs Temp 98.7 F 11/02/22 07:28 Pulse 69 11/02/22 07:28 Resp 16 11/02/22 07:28 BP 164/93 11/02/22 07:28 Pulse Ox 93 L 11/02/22 08:00 FiO2 Intake & Output 11/01/22 11/02/22 11/02/22 18:59 06:59 18:59 Intake Total 360 118 Output Total 1420 2925 Balance -1060 -2807 Intake: Oral 360 118 Output: Urine 1420 2925 Other: Voiding Method Diaper Diaper Diaper External Catheter External Catheter External Catheter - Labs CBC & Chem 7: 11/02/22 06:26 11/02/22 06:26 Labs: Abnormal Lab Results - Last 24 Hours (Table) 11/01/22 11/02/22 11/02/22 Range/Units 17:23 06:26 06:26 RBC 3.49 L (4.30-5.90) m/uL Hgb 10.5 L (13.0-17.5) gm/dL Hct 31.5 L (39.0-53.0) % BUN 36 H (9-20) mg/dL Creatinine 2.47 H (0.66-1.25) mg/dL Calcium 8.2 L (8.4-10.2) mg/dL Urine Protein Trace H (Negative) Urine Blood Trace H (Negative) Urine Mucus Rare H (None) /hpf Microbiology - Last 24 Hours (Table) 10/31/22 13:15 Urine Culture - Final Urine,Voided
--- NOTE | 2022-11-02 14:49 | P.PN ---
Subjective Progress Note Date: 11/02/22 Principal diagnosis: Hydronephrosis The patient reports increased urinary frequency. He denies dysuria and hematuria. Urine culture dated 10/31/2022 was negative. Objective - Vital Signs Vital signs: Vital Signs Temp 98.7 F 11/02/22 07:28 Pulse 69 11/02/22 07:28 Resp 16 11/02/22 07:28 BP 164/93 11/02/22 07:28 Pulse Ox 93 L 11/02/22 08:00 FiO2 Intake & Output 11/01/22 11/02/22 11/02/22 18:59 06:59 18:59 Intake Total 360 118 Output Total 1420 2925 Balance -1060 280 Intake: Oral 360 118 Output: Urine 1420 2925 Other: Voiding Method Diaper Diaper Diaper External Catheter External Catheter External Catheter - Constitutional General appearance: Present: average body habitus, cooperative - Respiratory Details: Normal rate, normal respiratory effort. - Psychiatric Psychiatric: Present: A&O x's 3 - Labs CBC & Chem 7: 11/02/22 06:26 11/02/22 06:26 Labs: Abnormal Lab Results - Last 24 Hours (Table) 11/01/22 11/02/22 11/02/22 Range/Units 17:23 06:26 06:26 RBC 3.49 L (4.30-5.90) m/uL Hgb 10.5 L (13.0-17.5) gm/dL Hct 31.5 L (39.0-53.0) % BUN 36 H (9-20) mg/dL Creatinine 2.47 H (0.66-1.25) mg/dL Calcium 8.2 L (8.4-10.2) mg/dL Urine Protein Trace H (Negative) Urine Blood Trace H (Negative) Urine Mucus Rare H (None) /hpf Microbiology - Last 24 Hours (Table) 10/31/22 13:15 Urine Culture - Final Urine,Voided Assessment and Plan (1) Unspecified hydronephrosis Current Visit: Yes Status: Acute Code(s): N13.30 - UNSPECIFIED HYDRONEPHROSIS SNOMED Code(s): 83032715 Plan: Ultrasound shows marked left hydronephrosis with thinned to absent renal parenchyma. Therefore, his right kidney is essentially a solitary kidney, and there is [id number] right hydronephrosis. Urine cultures negative. The renal function is stable. He is scheduled to undergo cystoscopy, transurethral resection of bladder tumor, and retrograde pyelograms by Dr. Bravo on 11/09. I do not feel that any urologic intervention will be required during this hospitalization.
[2022-11-02] MEDS: APIXABAN 2.5 MG TABLET PO SCH (20:22)
[2022-11-02] MEDS: PRAVASTATIN SODIUM 80 MG TAB PO SCH (20:23)
[2022-11-03] MEDS: LACTATED RINGERS 1,000 ML IV SCH (06:18)
[2022-11-03] MEDS: amLODIPine 5 MG TAB PO SCH (09:00)
[2022-11-03] MEDS: DOXAZOSIN 4 MG TAB PO SCH (09:00)
[2022-11-03] MEDS: TAMSULOSIN 0.4 MG CAP.ER.24H PO SCH (09:00)
[2022-11-03] MEDS: APIXABAN 2.5 MG TABLET PO SCH ×2 (09:01→20:19)
[2022-11-03] MEDS: carvediloL 12.5 MG TAB PO SCH ×2 (09:01→17:31)
[2022-11-03] MEDS: carvediloL 6.25 MG TAB PO SCH (09:16)
--- NOTE | 2022-11-03 10:58 | P.PN ---
Subjective HISTORY OF PRESENT ILLNESS: This is an 82-year-old male patient of Dr. Isaac Leggett with past medical history significant for coronary artery disease s/p bypass grafting 2006 with TY to LAD and SVG to PDA and OM, abdominal aortic aneurysm status post repair, chronic persistent atrial fibrillation on long-term anticoagulation with Eliquis, moderate mitral regurgitation, hypertension, chronic systolic heart failure and dyslipidemia. We have been asked to see in consultation for non-ST elevated myocardial infarction. Patient presented to the hospital on 10/29 for generalized weakness and not feeling well, hematuria. Patient had a cystoscopy done in the office for bladder mass and scheduled to undergo a transurethral r esection of the bladder tumor on November 09. Patient initially found to have a creatinine of 3.4 and has been followed by nephrology, urology. Patient is slightly confused this morning but he denies having any chest pain or shortness of breath. No lightheadedness. No palpitations. EKG atrial fibrillation CT of the abdomen and pelvis revealed severe left-sided hydronephrosis. Renal parenchymal thinning suggesting chronic process. Mild to moderate right-sided hydronephrosis. Laboratory reviewed, WBC on admission 17.2 repeat today 12.8, hemoglobin 15, platelets 159, sodium 137, potassium 3.9, creatinine 1.07 and troponin negative 1. Current cardiac medications include amlodipine 5 mg daily, Terazosin 5 mg daily, pravastatin 40 mg at bedtime, losartan 25 mg daily, atenolol 50 mg twice a day and Eliquis 5 mg twice a day. Echocardiogram performed in the office on 12/30/2021 revealed EF 45%, normal LV size. Mild ventricular hypertrophy. Lodk-rk-owxhakis aortic regurgitation. Moderate mitral regurgitation. Moderate tricuspid regurgitation. Normal PAS P. Trace to mild pulmonic regurgitation. Lexiscan stress test 2018 revealed small fixed perfusion defect in the inferior wall suggestive prior myocardial infarction. EF 46% with inferior basal hypokinesia. No evidence of ischemia on EKG portion. 11/02/2022 Patient examined this morning at the bedside. He denies chest pain or pressure. He denies SOB. Echocardiogram completed revealing ejection fraction 20%, moderate to severe mitral regurgitation, mild aortic regurgitation, moderate to severe tricuspid regurgitation, mild to moderate pulmonic regurgitation, mild aortic dilatation. Telemetry reveals atrial fibrillation with controlled ventricular rates. Patient having 2 second pauses on telemetry which is acceptable as patient is in atrial fibrillation. Blood pressure elevated with a recent reading of 168/86 11/03/2022 Patient examined this morning at the bedside. Patient denies chest pain or pre ssure. He denies shortness of breath. Patient's blood pressures remain elevated this morning, although improved from yesterday. PHYSICAL EXAM: VITAL SIGNS: Reviewed. GENERAL: Well-developed in no acute distress. NECK: Supple. No JVD or thyromegaly LUNGS: Respirations even and unlabored. Lungs essentially clear to auscultation bilaterally. HEART: Irregular rate and rhythm. S1 and S2 heard. + systolic murmur EXTREMITIES: Normal range of motion. No clubbing or cyanosis. Peripheral pulses intact. No lower extremity edema ASSESSMENT: Acute kidney injury Elevated troponin secondary to acute kidney injury Bladder mass with hematuria Persistent atrial fibrillation with rapid ventricular rate, currently controlled Chronic systolic heart failure, EF decreased to 20%, previously 45% Coronary artery disease status post bypass grafting in 2006 Hypertension Dyslipidemia Nonsustained VT PLAN: Increase carvedilol to 12.5 mg twice a day Losartan remains on hold due to MARION Ideally, would like to DC Norvasc due to cardiomyopathy. However, will continue at this time as patient has uncontrolled blood pressures Continue additional cardiac medications Patient is high risk to undergo surgery. However, there are no absolute contr aindications from a cardiac standpoint Stable for discharge home from a cardiac standpoint Further recommendations pending patient course Nurse practitioner note has been reviewed by physician. Signing provider agrees with the documented findings, assessment, and plan of care. Objective - Vital Signs Vital signs: Vital Signs Temp 97.8 F 11/03/22 07:39 Pulse 74 11/03/22 07:39 Resp 16 11/03/22 07:39 BP 173/94 11/03/22 07:39 Pulse Ox 91 L 11/03/22 08:39 FiO2 Intake & Output 11/02/22 11/03/22 11/03/22 18:59 06:59 18:59 Intake Total 900 Output Total 2350 Balance 900 -2350 Intake: Intake, IV Titration 900 Amount Lactated Ringers 1,000 ml 900 @ 75 mls/hr IV .[id number] [facility] Rx#:[id number] Output: Urine 2350 Other: Voiding Method Diaper Diaper External Catheter External Catheter - Labs CBC & Chem 7: 11/02/22 06:26 11/02/22 06:26
[2022-11-03 11:35] LABS: African American GFR (CKD) 29 (>60 ml/min/1.73 sqM); Anion Gap 7 mmol/L; Blood Urea Nitrogen 35 mg/dL (9-20); Calcium 7.8 mg/dL (8.4-10.2); Carbon Dioxide 27 mmol/L (22-30); Chloride 103 mmol/L (98-107); Glucose 167 mg/dL (74-99); Non-African American GFR(CKD) 25 (>60 ml/min/1.73 sqM); Potassium 3.5 mmol/L (3.5-5.1); Sodium 137 mmol/L (137-145)
--- NOTE | 2022-11-03 11:43 | P.DS ---
Providers Date of admission: 10/29/22 01:39 Expected date of discharge: 11/03/22 Attending physician: Chris Hunter MD Consults: 10/29/22 13:29 Consult Physician Routine Consulting Provider: Betito Bravo Consult Reason/Comments: Known to possible bladder Mass Do you want consulting provider notified?: Yes 10/31/22 08:55 Consult Physician Routine Consulting Provider: Pricila Paz Consult Reason/Comments: MARION Do you want consulting provider notified?: Yes 10/31/22 08:56 Consult Physician Routine Consulting Provider: Cb Easley Consult Reason/Comments: NSTEMI Do you want consulting provider notified?: Yes [facility] Course: Discharge Diagnosis: Acute kidney injury Left-sided hydronephrosis, bladder tumor Generalized weakness Urinary tract infection, present on admission Worsening systolic cardiomyopathy ejection fraction 20%, prior 45% Type II non-STEMI, likely related MARION HTN CAD s/p bypass HLD Atrial fibrillation Anemia, stable Hypokalemia Hypomagnesemia Anion gap metabolic acidosis Hyperchloremia Hospital Course: Patient is an 82-year-old male for history of atrial fibrillation on anticoagulation, bladder mass, hypertension, and dyslipidemia who presented to the ER with complaints of generalized weakness and falls. On arrival to the ER his vital signs were within normal limits. Initial laboratory analysis showed white blood cell count of 14.8, he will be 10.3, sodium 135, creatinine 3.41, bilirubin 1.7, and troponin 0.037. He was admitted for acute renal failure and possibly complicated urinary tract infection. He was started on IV fluids and Rocephin. Urology was consulted due to his newly diagnosed bladder mass. He was continued on fluids. Renal ultrasound did show left-sided hydronephrosis. Cardiology was consulted due to elevated troponins he had an echo which showed EF 20% and for the time being cardio recommends medical management. Nephrology was consulted and recommended IV fluids. Renal function improved. Patient to follow-up with urology pending surgery on 11/09. Losartan being held due to acute kidney injury. Patient on beta octavio. Per cardiology, patient is at high risk to undergo any surgical procedure, however there are no absolute contraindications from cardiac standpoint. Patient seen and examined at bedside. Vital signs reviewed and stable. General: nontoxic, no distress, appears at stated age Derm: warm, dry Head: atraumatic, normocephalic, symmetric Eyes: EOMI, no lid lag, anicteric sclera Mouth: no lip lesion, mucus membranes moist Cardiovascular: S1S2 reg, no murmur Lungs: CTA bilateral, no rhonchi, no rales , no accessory muscle use Abdominal: soft, nontender to palpation, no guarding, no appreciable organomegaly Ext: no gross muscle atrophy, no edema, no contractures Neuro: CN II-XI grossly intact, no focal neuro deficits Psych: Alert, oriented, appropriate affect A total of 33 minutes of time were spent preparing this complex discharge summary. Patient was discharged on 11/03/22 at 11:42. Patient Condition at Discharge: Stable Plan - Discharge Summary Discharge Rx Participant: No New Discharge Prescriptions: New Cefdinir 300 mg PO Q12HR #4 cap carvediloL [Coreg*] 12.5 mg PO BID-W/MEALS #60 tab Apixaban [Eliquis] 2.5 mg PO BID #60 tab Pravastatin Sodium [Pravachol] 80 mg PO HS #60 tab Continue Pravastatin Sodium [Pravachol] 40 mg PO HS amLODIPine [Norvasc] 5 mg PO DAILY Tamsulosin HCl [Flomax] 0.4 mg PO DAILY Discontinued Terazosin [Hytrin] 5 mg PO DAILY Losartan [Cozaar] 25 mg PO DAILY Apixaban [Eliquis] 5 mg PO BID atenoloL [Tenormin] 50 mg PO BID Discharge Medication List Pravastatin Sodium [Pravachol] 40 mg PO HS 07/21/17 [History] amLODIPine [Norvasc] 5 mg PO DAILY 05/12/20 [History] Tamsulosin HCl [Flomax] 0.4 mg PO DAILY 10/29/22 [History] Apixaban [Eliquis] 2.5 mg PO BID #60 tab 11/03/22 [Rx] Cefdinir 300 mg PO Q12HR #4 cap 11/03/22 [Rx] Pravastatin Sodium [Pravachol] 80 mg PO HS #60 tab 11/03/22 [Rx] carvediloL [Coreg*] 12.5 mg PO BID-W/MEALS #60 tab 11/03/22 [Rx] Follow up Appointment(s)/Referral(s): [facility], [NON-STAFF] - 1 Week Kvng Saeed DO [Primary Care Provider] - 1-2 days Juan Carlos Leggett MD [STAFF PHYSICIAN] - 1 Week Betito Bravo MD [STAFF PHYSICIAN] - 1 Week Pricila Paz MD [STAFF PHYSICIAN] - 1 Week Patient Instructions/Handouts: Acute Kidney Injury (DC), Heart Failure (DC) Activity/Diet/Wound Care/Special Instructions: Please see your bull bucker, and urologist. You remain at high risk for any surgical procedure due to your heart failure. Please also see your PCP, and you may need repeat blood work to check your kidney function. Discharge Disposition: HOME SELF-CARE
--- NOTE | 2022-11-03 12:17 | P.PN ---
Subjective Patient is seen for follow-up for acute kidney injury. He has a bladder mass with bilateral hydronephrosis and is scheduled for surgery with urology on 11/09/2022. Currently maintained on IV antibiotics for underlying UTI. Urine culture showed no significant organism Patient is maintained on IV fluids. Serum creatinine was down to 2.3 from 3.0 on initial admission. No complaints today Objective - Vital Signs Vital signs: Vital Signs Temp 97.8 F 11/03/22 07:39 Pulse 72 11/03/22 08:05 Resp 16 11/03/22 08:05 BP 173/94 11/03/22 07:39 Pulse Ox 91 L 11/03/22 08:39 FiO2 Intake & Output 11/02/22 11/03/22 11/03/22 18:59 06:59 18:59 Intake Total 900 Output Total 2350 Balance 900 -2350 Intake: Intake, IV Titration 900 Amount Lactated Ringers 1,000 ml 900 @ 75 mls/hr IV .[id number] [facility] Rx#:[id number] Output: Urine 2350 Other: Voiding Method Diaper Diaper Diaper External Catheter External Catheter External Catheter - Exam Patient is awake, comfortable, no acute distress. 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 Acute kidney injury, obstructive uropathy as ultrasound shows bilateral hydronephrosis.. UA shows 1+ protein and large blood. Patient has an underlying bladder mass scheduled for surgery on 11/09/2022. No obvious nephrotoxic agents notified. Renal function has improved with IV hydration. There is likely a hypovolemic component. Agree with holding angiotensin receptor blockers. 2. Hypokalemia currently being replaced. Patient is not on diuretics. Oral intake seems fair. Magnesium 1.8. 3. Mild non-gap metabolic acidosis secondary to acute kidney injury 4. Bladder mass scheduled for surgery on 11/09/2022 as outpatient 5. History of BPH currently with no urine retention and maintained on Flomax. 6. Bilateral hydronephrosis most likely associated with underlying bladder mass Plan: Encouraged increased oral intake. Follow-up with urology and nephrology as outpatient.
[2022-11-03] MEDS: PRAVASTATIN SODIUM 80 MG TAB PO SCH (20:19)
[2022-11-04] MEDS: APIXABAN 2.5 MG TABLET PO SCH ×2 (08:48→20:28)
[2022-11-04] MEDS: TAMSULOSIN 0.4 MG CAP.ER.24H PO SCH (08:48)
[2022-11-04] MEDS: amLODIPine 5 MG TAB PO SCH (08:48)
[2022-11-04] MEDS: DOXAZOSIN 4 MG TAB PO SCH (08:49)
[2022-11-04] MEDS: carvediloL 12.5 MG TAB PO SCH ×2 (08:49→18:17)
[2022-11-04] MEDS: LACTATED RINGERS 1,000 ML IV SCH ×2 (09:45→09:46)
--- NOTE | 2022-11-04 09:46 | P.PN ---
Subjective HISTORY OF PRESENT ILLNESS: This is an 82-year-old male patient of Dr. Isaac Leggett with past medical history significant for coronary artery disease s/p bypass grafting 2006 with TY to LAD and SVG to PDA and OM, abdominal aortic aneurysm status post repair, chronic persistent atrial fibrillation on long-term anticoagulation with Eliquis, moderate mitral regurgitation, hypertension, chronic systolic heart failure and dyslipidemia. We have been asked to see in consultation for non-ST elevated myocardial infarction. Patient presented to the hospital on 10/29 for generalized weakness and not feeling well, hematuria. Patient had a cystoscopy done in the office for bladder mass and scheduled to undergo a transurethral r esection of the bladder tumor on November 09. Patient initially found to have a creatinine of 3.4 and has been followed by nephrology, urology. Patient is slightly confused this morning but he denies having any chest pain or shortness of breath. No lightheadedness. No palpitations. EKG atrial fibrillation CT of the abdomen and pelvis revealed severe left-sided hydronephrosis. Renal parenchymal thinning suggesting chronic process. Mild to moderate right-sided hydronephrosis. Laboratory reviewed, WBC on admission 17.2 repeat today 12.8, hemoglobin 15, platelets 159, sodium 137, potassium 3.9, creatinine 1.07 and troponin negative 1. Current cardiac medications include amlodipine 5 mg daily, Terazosin 5 mg daily, pravastatin 40 mg at bedtime, losartan 25 mg daily, atenolol 50 mg twice a day and Eliquis 5 mg twice a day. Echocardiogram performed in the office on 12/30/2021 revealed EF 45%, normal LV size. Mild ventricular hypertrophy. [id number] aortic regurgitation. Moderate mitral regurgitation. Moderate tricuspid regurgitation. Normal PAS P. Trace to mild pulmonic regurgitation. Lexiscan stress test 2018 revealed small fixed perfusion defect in the inferior wall suggestive prior myocardial infarction. EF 46% with inferior basal hypokinesia. No evidence of ischemia on EKG portion. 11/02/2022 Patient examined this morning at the bedside. He denies chest pain or pressure. He denies SOB. Echocardiogram completed revealing ejection fraction 20%, moderate to severe mitral regurgitation, mild aortic regurgitation, moderate to severe tricuspid regurgitation, mild to moderate pulmonic regurgitation, mild aortic dilatation. Telemetry reveals atrial fibrillation with controlled ventricular rates. Patient having 2 second pauses on telemetry which is acceptable as patient is in atrial fibrillation. Blood pressure elevated with a recent reading of 168/86 11/03/2022 Patient examined this morning at the bedside. Patient denies chest pain or pre ssure. He denies shortness of breath. Patient's blood pressures remain elevated this morning, although improved from yesterday. 11/04/2022 Patient examined this morning at the bedside. Patient denies chest pain or pressure. He denies shortness of breath. Patient's blood pressures are stable. Patient was supposed to be discharged yesterday however the family felt he was too weak and his discharge was held. PHYSICAL EXAM: VITAL SIGNS: Reviewed. GENERAL: Well-developed in no acute distress. NECK: Supple. No JVD or thyromegaly LUNGS: Respirations even and unlabored. Lungs essentially clear to auscultation bilaterally. HEART: Irregular rate and rhythm. S1 and S2 heard. + systolic murmur EXTREMITIES: Normal range of motion. No clubbing or cyanosis. Peripheral pulse s intact. No lower extremity edema ASSESSMENT: Acute kidney injury Elevated troponin secondary to acute kidney injury Bladder mass with hematuria Persistent atrial fibrillation with rapid ventricular rate, currently controlled Chronic systolic heart failure, EF decreased to 20%, previously 45% Coronary artery disease status post bypass grafting in 2006 Hypertension Dyslipidemia Nonsustained VT PLAN: Continue current cardiac medications Losartan remains on hold due to MARION Ideally, would like to DC Norvasc due to cardiomyopathy. However, will continue at this time as patient has uncontrolled blood pressures during hospitalization. Patient is high risk to undergo surgery. However, there are no absolute contraindications from a cardiac standpoint Stable for discharge home from a cardiac standpoint Further recommendations pending patient course Nurse practitioner note has been reviewed by physician. Signing provider agrees with the documented findings, assessment, and plan of care. Objective - Vital Signs Vital signs: Vital Signs Temp 97.8 F 11/04/22 07:41 Pulse 68 11/04/22 07:41 Resp 16 11/04/22 07:41 BP 162/85 11/04/22 07:41 Pulse Ox 99 11/04/22 07:41 FiO2 Intake & Output 11/03/22 11/04/22 11/04/22 18:59 06:59 18:59 Output Total 1400 550 Balance -1400 -550 Output: Urine 1400 550 Other: Voiding Method Diaper Diaper Diaper External Catheter External Catheter External Catheter - Labs CBC & Chem 7: 11/02/22 06:26 11/03/22 10:12 Labs: Abnormal Lab Results - Last 24 Hours (Table) 11/03/22 Range/Units 10:12 BUN 35 H (9-20) mg/dL Creatinine 2.31 H (0.66-1.25) mg/dL Glucose 167 H (74-99) mg/dL Calcium 7.8 L (8.4-10.2) mg/dL
[2022-11-04 11:19] LABS: BUN/Creat Ratio 13.82 Ratio (12.00-20.00); Blood Urea Nitrogen 30.4 mg/dL (9.0-27.0); Calcium 8.5 mg/dL (8.7-10.3); Carbon Dioxide 23.9 mmol/L (21.6-31.8); Chloride 105 mmol/L (96-109); Glucose 106 mg/dL (70-110); Potassium 3.6 mmol/L (3.5-5.5); Sodium 142 mmol/L (135-145)
--- NOTE | 2022-11-04 11:34 | XR ---
EXAMINATION TYPE: XR knee 4V RT DATE OF EXAM: 11/04/2022 11:24 AM INDICATION: Patient age:Male; 82 years old; Reason for study: pain; PHH. COMPARISON: None. TECHNIQUE: The Right knee(s) was examined in frontal, lateral, oblique, and sunrise projections. FINDINGS: No acute fracture or dislocation. Lateral tibiofemoral joint space narrowing with gliosis and marginal osteophytosis. Small suprapatellar joint effusion. No soft tissue edema. Severe vascula r sclerosis. IMPRESSION: 1. No acute osseous pathology. 2. Moderate lateral tibiofemoral joint space osteoarthritic changes. 3. Small suprapatellar joint effusion.
--- NOTE | 2022-11-04 13:10 | P.PN ---
Subjective Patient is seen for follow-up for acute kidney injury. He has a bladder mass with bilateral hydronephrosis and is scheduled for surgery with urology on 11/09/2022. Currently maintained on IV antibiotics for underlying UTI. Urine culture showed no significant organism Patient is maintained on IV fluids. Serum creatinine was down to 2.2 from 3.0 on initial admission. Complaining of right knee pain. Status post x-ray. Objective - Vital Signs Vital signs: Vital Signs Temp 97.7 F 11/04/22 11:51 Pulse 64 11/04/22 11:51 Resp 16 11/04/22 11:51 BP 150/83 11/04/22 11:51 Pulse Ox 93 L 11/04/22 11:51 FiO2 Intake & Output 11/03/22 11/04/22 11/04/22 18:59 06:59 18:59 Output Total 1400 550 Balance -1400 -550 Output: Urine 1400 550 Other: Voiding Method Diaper Diaper Diaper External Catheter External Catheter External Catheter - Exam Patient is awake, comfortable, no acute distress. Examination of the heart S1 and S2 Examination of the lungs bilateral breath sounds are Abdomen is soft nontender Examination lower extremities shows no evidence of edema DIRECTOR COMPENSATION exam grossly intact - Labs CBC & Chem 7: 11/02/22 06:26 11/04/22 06:31 Labs: Abnormal Lab Results - Last 24 Hours (Table) 11/04/22 Range/Units 06:31 Anion Gap 13.10 H (4.00-12.00) mmol/L BUN 30.4 H (9.0-27.0) mg/dL Creatinine 2.2 H (0.6-1.5) mg/dL Est GFR (CKD-EPI) 29 L (>=60) Calcium 8.5 L (8.7-10.3) mg/dL Assessment and Plan Assessment: 1. Acute kidney injury, obstructive uropathy as ultrasound shows bilateral hydronephrosis.. UA shows 1+ protein and large blood. Patient has an underlying bladder mass scheduled for surgery on 11/09/2022. No obvious nep hrotoxic agents notified. Renal function has improved with IV hydration. There is likely a hypovolemic component. Agree with holding angiotensin receptor blockers. 2. Hypokalemia currently being replaced. Patient is not on diuretics. Oral intake seems fair. Magnesium 1.8. 3. Mild non-gap metabolic acidosis secondary to acute kidney injury 4. Bladder mass scheduled for surgery on 11/09/2022 as outpatient 5. History of BPH currently with no urine retention and maintained on Flomax. 6. Bilateral hydronephrosis most likely associated with underlying bladder mass Plan: DC IV fluids Increase Coreg if blood pressure remains elevated. Encouraged increased oral intake. Follow-up with urology and nephrology as outpatient.
--- NOTE | 2022-11-04 13:15 | P.PN ---
Subjective Progress Note Date: 11/04/22 Hospital Course: Patient is an 82-year-old male for history of atrial fibrillation on an ticoagulation, bladder mass, hypertension, and dyslipidemia who presented to the ER with complaints of generalized weakness and falls. On arrival to the ER his vital signs were within normal limits. Initial laboratory analysis showed white blood cell count of 14.8, he will be 10.3, sodium 135, creatinine 3.41, bilirubin 1.7, and troponin 0.037. He was admitted for acute renal failure and possibly complicated urinary tract infection. He was started on IV fluids and Rocephin. Urology was consulted due to his newly diagnosed bladder mass. He was continued on fluids. Renal ultrasound did show left-sided hydronephrosis. Cardiology was consulted due to elevated troponins he had an echo which showed EF 20% and for the time being cardio recommends medical management. Nephrology was consulted and recommended IV fluids. Renal function improved. Patient to follow-up with urology pending surgery on 11/09. Losartan being held due to acute kidney injury. Patient on beta octavio. Per cardiology, patient is at high risk to undergo any surgical procedure, however there are no absolute con traindications from cardiac standpoint. Had a direct conversation with urology, procedure to be postponed. Subjective: Patient seen and examined at bedside. No acute events overnight. Still feeling weak. Also complaining of right knee pain. Pertinent positives and negatives as discussed above, a complete review of systems was performed and all other systems are negative. Vitals Signs Reviewed. General: nontoxic, no distress, appears at stated age Derm: warm, dry Head: atraumatic, normocephalic, symmetric Eyes: EOMI, no lid lag, anicteric sclera Mouth: no lip lesion, mucus membranes moist Cardiovascular: S1S2 reg, no murmur Lungs: CTA bilateral, no rhonchi, no rales , no accessory muscle use Abdominal: soft, nontender to palpation, no guarding, no appreciable organomegaly Ext: no gross muscle atrophy, no edema, no contractures Neuro: CN II-XI grossly intact, no focal neuro deficits Psych: Alert, oriented, appropriate affect Data Reviewed Today: Pertinent Labs: Sodium 142, potassium 2.6, creatinine 2.2 Imaging: Right knee x-ray shows no acute osseous pathology, small suprapatellar joint effusion, osteoarthritic changes Assessment and Plan: Acute kidney injury, resolving Left-sided hydronephrosis, bladder tumor Generalized weakness Urinary tract infection, present on admission Worsening systolic cardiomyopathy ejection fraction 20%, prior 45% Type II non-STEMI, likely related MARION History of HTN History CAD s/p bypass History of HLD Atrial fibrillation, chronic Anemia, stable Hypokalemia, resolved Hypomagnesemia, resolved Anion gap metabolic acidosis, resolved Hyperchloremia, resolved -Cardiology note reviewed, okay to discharge -Spoke with urology, bladder tumor resection postponed due to patient being high risk -Family requesting inpatient rehab, pending evaluation -If inpatient rehab not feasible, patient to be discharged home with home care. DVT ppx: Eliquis Code status: Full code Anticipated discharge place: Inpatient rehab versus home with home care Anticipated discharge time: 1-2 days Objective - Vital Signs Vital signs: Vital Signs Temp 97.7 F 11/04/22 11:51 Pulse 64 11/04/22 11:51 Resp 16 11/04/22 11:51 BP 150/83 11/04/22 11:51 Pulse Ox 93 L 11/04/22 11:51 FiO2 Intake & Output 11/03/22 11/04/22 11/04/22 18:59 06:59 18:59 Output Total 1400 550 Balance -1400 -550 Output: Urine 1400 550 Other: Voiding Method Diaper Diaper Diaper External Catheter External Catheter External Catheter - Labs CBC & Chem 7: 11/02/22 06:26 11/04/22 06:31 Labs: Abnormal Lab Results - Last 24 Hours (Table) 11/04/22 Range/Units 06:31 Anion Gap 13.10 H (4.00-12.00) mmol/L BUN 30.4 H (9.0-27.0) mg/dL Creatinine 2.2 H (0.6-1.5) mg/dL Est GFR (CKD-EPI) 29 L (>=60) Calcium 8.5 L (8.7-10.3) mg/dL
--- NOTE | 2022-11-04 13:57 | P.CONS ---
History of Present Illness - Reason for Consult Consult date: 11/04/22 rehab recommendations - Chief Complaint generalized weakness, falls - History of Present Illness Mr Dago Lyman is an 82 y/o right handed, male, who lives with his in a two story home, with 3 IVIS. Patient's bed and bath is on the first floor. Prior to admission, he was ambulating with an assistive device ( cane or walker). He was independent for basic/advanced ADLs. 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 Support system: / family ( 3 children local). performs cooking and cleaning. DME at home includes 4ww, cane, shower chair. He was admitted to [facility] on 10/28/22 with complaints of generalized weakness and recent falls. Patient had been having difficulty with ambulating and ADLs at home. Patient recently had an outpatient procedure with urology and scheduled for a TURP with mass removal on 11/09/22. Since the procedure he has h ad hematuria. He was found to have a UTI and started on abx. He was seen by urology. He was stabilized medically and planned for discharge on November 02, but family had concerns about his functional status. Patient participated with therapy and did well on November 02, but subsequently developed complaints of right knee pain. Patient had an Xray showed osteoarthritis and small prepatellar effusion. Patient was seen again by therapy, needing mod assist with bathing, min assist with UB dressing, total assist with LB dressing, mod assist with bed mobility and min assist with transfers. Patient was able to ambulate 100 ft supervision on 11/02/22 but was not able to ambulate since due to right knee pain. PM&R consulted for rehab recommendations. 11/04/22: Patient doing ok, reports that his right foot/ankle feels better today. He denies CP, SOB, and abdominal pain. Reports LBM 5 days ago, denies nausea, passing flatus. He admits to falling prior to coming in to the hospital, he was going up the stairs into his home. His was unable to get him up and EMS had to be called. He admits to hitting his right elbow and his head but denies LOC. He is unsure exactly why he is at the hospital, but believes it has something to do with dehydration. Review of Systems reviewed, negative unless noted in HPI Past Medical History Past Medical History: Atrial Fibrillation, Coronary Artery Disease (CAD), Hypertension, Osteoarthritis (OA), Pneumonia, Prostate Disorder Additional Past Medical History / Comment(s): pneumonia May 2020 after hernia surgery, Last Myocardial Infarction Date:: unknown History of Any Multi-Drug Resistant Organisms: None Reported Past Surgical History: Cholecystectomy, Coronary Bypass/CABG, Heart Catheterization With Stent, Hernia Repair, Joint Replacement Additional Past Surgical History / Comment(s): triple bypass 14 years ago, aortic aneurysm repair, rt hip replacement, left inguinal hernia repair, unsure how many cardiac stents Cystoscopy on 10/26/22 Past Anesthesia/Blood Transfusion Reactions: No Reported Reaction Date of Last Stent Placement:: unknown Past Psychological History: No Psychological Hx Reported Smoking Status: Former smoker Past Alcohol Use History: None Reported Additional Past Alcohol Use History / Comment(s): quit smoking 20 yrs. ago, 1ppd for 25 yrs. Past Drug Use History: None Reported - Past Family History Mother Family Medical History: No Reported History Father Family Medical History: Congestive Heart Failure (CHF) (Father at the age of 78 from CHF.), Hypertension Additional Family Medical History / Comment(s): Patient states that his parents never went to the doctor. He thinks his father of hypertensive disease. He does not know much about his mother. Denies any significant medical history in siblings, is and has kids with no significant medical. lives of at home. Brother(s) Family Medical History: No Reported History (patient has one brother no major issues.) Sister(s) Family Medical History: No Reported History (patient has 2 sisters no major medical problems) Son(s) Family Medical History: No Reported History (patient has 2 sons ok.) Daughter(s) Family Medical History: No Reported History (one daughter ok.) Medications and Allergies Home Medications Medication Instructions Recorded Confirmed Type Pravastatin Sodium [Pravachol] 40 mg PO HS 07/21/17 10/29/22 History amLODIPine [Norvasc] 5 mg PO DAILY 05/12/20 10/29/22 History Tamsulosin HCl [Flomax] 0.4 mg PO DAILY 10/29/22 10/29/22 History Apixaban [Eliquis] 2.5 mg PO BID #60 tab 11/03/22 Rx Cefdinir 300 mg PO Q12HR #4 cap 11/03/22 Rx Pravastatin Sodium [Pravachol] 80 mg PO HS #60 tab 11/03/22 Rx carvediloL [Coreg*] 12.5 mg PO BID-W/MEALS #60 tab 11/03/22 Rx Allergies Allergy/AdvReac Type Severity Reaction Status Date / Time No Known Allergies Allergy Verified 10/29/22 08:31 Physical Exam Vitals: Vital Signs Temp Pulse Resp BP BP Pulse Ox 11/04/22 11:51 97.7 F 64 16 150/83 93 L 11/04/22 07:41 97.8 F 68 16 162/85 99 11/04/22 02:33 98.4 F 87 16 162/93 94 L 11/03/22 20:00 17 11/03/22 19:56 98.1 F 75 17 164/85 98 Intake and Output 11/03/22 11/04/22 11/04/22 22:59 06:59 14:59 Output Total 400 550 Balance -400 -550 Output: Urine 400 550 Other: Voiding Method Diaper Diaper External Catheter External Catheter General: WD thin, elderly male, laying in bed, NAD. Sleeping upon entry but easily awoken to touch. Head: Normocephalic, atraumatic. Eyes: Symmetric Ears: Symmetric. [place] Mouth: Clear. Neck: Supple. Cardiac: Calves supple, non tender, no LE edema Lungs: Breathing comfortably on RA. Chest symmetric. LCTAB Abdomen: Soft, nontender. Extremities: Arthritic changes consistent with age. Neurological: Alert and oriented x 3, although processing slower Speech is clear and fluent without paraphasic errors Cranial nerves: CN II-XII groslly intact except for CN VIII Sensation: Intact and symmetrical limbs. Musculoskeletal: Upper extremity ROM within functional limits, bilateral knee extension limited bilaterally. Right knee with moderate joint effusion, hypertrophic with mobile small mass over patella, No tenderness to palpation. Left knee with mild joint effusion, hypertrophic knee. Crepitus bilaterally. MMT UE Sh Abd EE EF FABD WE HG Right 4+ 4+ 5 5 Left 4+ 4+ 5 5 MMT LE HF KE DF EHL Right 4+ 4+ 5 5 Left 4+ 4+ 5 5 Reflexes Biceps Triceps Brachioradialis Patella Achilles Babinski Hoffmans Right 2 2 2 2 - - - Left 2 2 2 2 - - - Skin: Skin intact where visible to head, neck, and bilateral upper and lower extremities EXCEPT: right dosal aspect of deltoid with a 3x3x2 cm soft, mobile mass, non tender; brawny induration with chronic vascular changes to bilateral lower extremities Psych: Calm, cooperative, but forgetful Results CBC & Chem 7: 11/02/22 06:26 11/04/22 06:31 Labs: Abnormal Lab Results - Last 24 Hours (Table) 11/04/22 Range/Units 06:31 Anion Gap 13.10 H (4.00-12.00) mmol/L BUN 30.4 H (9.0-27.0) mg/dL Creatinine 2.2 H (0.6-1.5) mg/dL Est GFR (CKD-EPI) 29 L (>=60) Calcium 8.5 L (8.7-10.3) mg/dL Assessment and Plan Assessment: # Urosepsis with recent urologic procedure -on Ceftriaxone -urology # MARION # Right knee pain with joint effusion -xray report reviewed -recommending Ortho evaluation, possible aspiration and steroid injection for relief and improved mobility # Recent falls -fall precautions # Impaired gait and ADLs #Left-sided hydronephrosis, bladder tumor #Worsening systolic cardiomyopathy ejection fraction 20%, prior 45% # Type II non-STEMI, likely related MARION # Afib -on eliquis # Bowel/ Bladder: Nursing to monitor and report concerns if any. -11/04 patient reports no BM x 5 days, recommend bowel regimen per protocol # Skin/wound: Skin/Wound care to follow as needed # Pain Management Tylenol 650 mg Q 6 prn # DVT Prophylaxis: Eliquis # Comorbidities: OA, History of HTN, History CAD s/p bypass, History of HLD, Anion gap metabolic acidosis, resolved # Your medical dx and mgt Goals: Modified Independent mobility and ADLS both basic and advanced; increased functional mobility/strength; increased balance, safety, endurance. Improvement in medical issues through your care. Barriers: endurance, fall risk, knee pain Discharge recommendation: Recommending IPR for continued rehab, will likely need a modified program given his EF of 20%. Discussed and explained rehab options with patient, he is not wanting to stay in the hospital and would ultimately like to go home with [facility]. Given patient's current functional status, highly recommending IPR and not HHC at this time. Patient seen and examined in coordination with Dr. Barrientos Patient was seen and examined with PA and Tessa Linder SOIL SPECIALIST. Agree with above. Ortho consult also recommended for right knee. Time with Patient: Greater than 30
[2022-11-04] MEDS: PRAVASTATIN SODIUM 80 MG TAB PO SCH (20:28)
[2022-11-05] MEDS: carvediloL 12.5 MG TAB PO SCH (08:18)
[2022-11-05] MEDS: APIXABAN 2.5 MG TABLET PO SCH (08:18)
[2022-11-05] MEDS: DOXAZOSIN 4 MG TAB PO SCH (08:18)
[2022-11-05] MEDS: amLODIPine 5 MG TAB PO SCH (08:18)
[2022-11-05] MEDS: TAMSULOSIN 0.4 MG CAP.ER.24H PO SCH (08:18)
[2022-11-05 08:39] VITALS: RESP 18
--- NOTE | 2022-11-05 11:10 | P.PN ---
Subjective HISTORY OF PRESENT ILLNESS: This is an 82-year-old male patient of Dr. Isaac Leggett with past medical history significant for coronary artery disease s/p bypass grafting 2006 with TY to LAD and SVG to PDA and OM, abdominal aortic aneurysm status post repair, chronic persistent atrial fibrillation on long-term anticoagulation with Eliquis, moderate mitral regurgitation, hypertension, chronic systolic heart failure and dyslipidemia. We have been asked to see in consultation for non-ST elevated myocardial infarction. Patient presented to the hospital on 10/29 for generalized weakness and not feeling well, hematuria. Patient had a cystoscopy done in the office for bladder mass and scheduled to undergo a transurethral r esection of the bladder tumor on November 09. Patient initially found to have a creatinine of 3.4 and has been followed by nephrology, urology. Patient is slightly confused this morning but he denies having any chest pain or shortness of breath. No lightheadedness. No palpitations. EKG atrial fibrillation CT of the abdomen and pelvis revealed severe left-sided hydronephrosis. Renal parenchymal thinning suggesting chronic process. Mild to moderate right-sided hydronephrosis. Laboratory reviewed, WBC on admission 17.2 repeat today 12.8, hemoglobin 15, platelets 159, sodium 137, potassium 3.9, creatinine 1.07 and troponin negative 1. Current cardiac medications include amlodipine 5 mg daily, Terazosin 5 mg daily, pravastatin 40 mg at bedtime, losartan 25 mg daily, atenolol 50 mg twice a day and Eliquis 5 mg twice a day. Echocardiogram performed in the office on 12/30/2021 revealed EF 45%, normal LV size. Mild ventricular hypertrophy. [id number] aortic regurgitation. Moderate mitral regurgitation. Moderate tricuspid regurgitation. Normal PAS P. Trace to mild pulmonic regurgitation. Lexiscan stress test 2018 revealed small fixed perfusion defect in the inferior wall suggestive prior myocardial infarction. EF 46% with inferior basal hypokinesia. No evidence of ischemia on EKG portion. 11/02/2022 Patient examined this morning at the bedside. He denies chest pain or pressure. He denies SOB. Echocardiogram completed revealing ejection fraction 20%, moderate to severe mitral regurgitation, mild aortic regurgitation, moderate to severe tricuspid regurgitation, mild to moderate pulmonic regurgitation, mild aortic dilatation. Telemetry reveals atrial fibrillation with controlled ventricular rates. Patient having 2 second pauses on telemetry which is acceptable as patient is in atrial fibrillation. Blood pressure elevated with a recent reading of 168/86 11/03/2022 Patient examined this morning at the bedside. Patient denies chest pain or pre ssure. He denies shortness of breath. Patient's blood pressures remain elevated this morning, although improved from yesterday. 11/04/2022 Patient examined this morning at the bedside. Patient denies chest pain or pressure. He denies shortness of breath. Patient's blood pressures are stable. Patient was supposed to be discharged yesterday however the family felt he was too weak and his discharge was held. 11/05/2022 Patient examined this morning at the bedside. Patient denies chest pain or p ressure. He denies shortness of breath. Blood pressure is stable with a systolic in the 140s. PHYSICAL EXAM: VITAL SIGNS: Reviewed. GENERAL: Well-developed in no acute distress. NECK: Supple. No JVD or thyromegaly LUNGS: Respirations even and unlabored. Lungs essentially clear to auscultation bilaterally. HEART: Irregular rate and rhythm. S1 and S2 heard. + systolic murmur EXTREMITIES: Normal range of motion. No clubbing or cyanosis. Peripheral pulses intact. No lower extremity edema ASSESSMENT: Acute kidney injury Elevated troponin secondary to acute kidney injury Bladder mass with hematuria Persistent atrial fibrillation with rapid ventricular rate, currently controlled Chronic systolic heart failure, EF decreased to 20%, previously 45% Coronary artery disease status post bypass grafting in 2006 Hypertension Dyslipidemia Nonsustained VT PLAN: Continue current cardiac medications Losartan remains on hold due to MARION Ideally, would like to DC Norvasc due to cardiomyopathy. However, will continue at this time as patient has uncontrolled blood pressures during hospitalization. Patient is high risk to undergo surgery. However, there are no absolute contraindications from a cardiac standpoint Stable for discharge from a cardiac standpoint We will sign off. Please reconsult if needed. Nurse practitioner note has been reviewed by physician. Signing provider agrees with the documented findings, assessment, and plan of care. Objective - Vital Signs Vital signs: Vital Signs Temp 97.8 F 11/05/22 07:17 Pulse 81 11/05/22 07:17 Resp 18 11/05/22 07:17 BP 148/83 11/05/22 07:17 Pulse Ox 95 11/05/22 08:29 FiO2 Intake & Output 11/04/22 11/05/22 11/05/22 18:59 06:59 18:59 Intake Total 500 Output Total 1200 1150 Balance -1200 -650 Intake: Oral 500 Output: Urine 1200 1150 Other: Voiding Method Diaper Diaper Diaper External Catheter External Catheter External Catheter - Labs CBC & Chem 7: 11/02/22 06:26 11/04/22 06:31 Labs: Abnormal Lab Results - Last 24 Hours (Table) 11/04/22 Range/Units 06:31 Anion Gap 13.10 H (4.00-12.00) mmol/L BUN 30.4 H (9.0-27.0) mg/dL Creatinine 2.2 H (0.6-1.5) mg/dL Est GFR (CKD-EPI) 29 L (>=60) Calcium 8.5 L (8.7-10.3) mg/dL
--- NOTE | 2022-11-05 12:40 | P.PN ---
Subjective Patient is seen for follow-up for acute kidney injury. He has a bladder mass with bilateral hydronephrosis and is scheduled for surgery with urology on 11/09/2022. Currently maintained on IV antibiotics for underlying UTI. Urine culture showed no significant organism Patient is status post IV fluids. Serum creatinine was down to 2.2 from 3.0 on initial admission. Objective - Vital Signs Vital signs: Vital Signs Temp 97.8 F 11/05/22 07:17 Pulse 81 11/05/22 07:17 Resp 18 11/05/22 07:17 BP 148/83 11/05/22 07:17 Pulse Ox 95 11/05/22 08:29 FiO2 Intake & Output 11/04/22 11/05/22 11/05/22 18:59 06:59 18:59 Intake Total 500 Output Total 1200 1150 Balance -1200 -650 Intake: Oral 500 Output: Urine 1200 1150 Other: Voiding Method Diaper Diaper Diaper External Catheter External Catheter External Catheter - Exam Patient is awake, comfortable, no acute distress. Examination of the heart S1 and S2 Examination of the lungs bilateral breath sounds are Abdomen is soft nontender Examination lower extremities shows no evidence of edema F[employer]ITURE [employer]ER exam grossly intact - Labs CBC & Chem 7: 11/02/22 06:26 11/04/22 06:31 Assessment and Plan Assessment: 1. Acute kidney injury, obstructive uropathy as ultrasound shows bilateral hydronephrosis.. UA shows 1+ protein and large blood. Patient has an underlying bladder mass scheduled for surgery on 11/09/2022. No obvious nephrotoxic agents notified. Renal function has improved with IV hydration. There is likely a hypovolemic component. Currently holding angiotensin receptor blockers. 2. Hypokalemia currently being replaced. Patient is not on diuretics. Oral intake seems fair. Magnesium 1.8. 3. Mild non-gap metabolic acidosis secondary to acute kidney injury 4. Bladder mass scheduled for surgery on 11/09/2022 as outpatient 5. History of BPH currently with no urine retention and maintained on Flomax. 6. Bilateral hydronephrosis most likely associated with underlying bladder mass Plan: Follow-up as outpatient with urology and nephrology
--- NOTE | 2022-11-05 12:50 | P.DS ---
Providers Date of admission: 10/29/22 01:39 Expected date of discharge: 11/05/22 Attending physician: Chris Hunter MD Consults: 10/29/22 13:29 Consult Physician Routine Consulting Provider: Betito Bravo Consult Reason/Comments: Known to possible bladder Mass Do you want consulting provider notified?: Yes 10/31/22 08:55 Consult Physician Routine Consulting Provider: Pricila Paz Consult Reason/Comments: MARION Do you want consulting provider notified?: Yes 11/04/22 11:19 Consult Physician Routine Consulting Provider: Albin Hernández Consult Reason/Comments: In patient rehab Do you want consulting provider notified?: Yes Primary care physician: Kvng Saeed Hospital Course: Discharge Diagnosis: Acute kidney injury Left-sided hydronephrosis, bladder tumor Generalized weakness Urinary tract infection, present on admission Worsening systolic cardiomyopathy ejection fraction 20%, prior 45% Type II non-STEMI, likely related MARION HTN CAD s/p bypass HLD Atrial fibrillation Anemia, stable Hypokalemia Hypomagnesemia Anion gap metabolic acidosis Hyperchloremia Hospital Course: Patient is an 82-year-old male for history of atrial fibrillation on anticoagulation, bladder mass, hypertension, and dyslipidemia who presented to the ER with complaints of generalized weakness and falls. On arrival to the ER his vital signs were within normal limits. Initial laboratory analysis showed white blood cell count of 14.8, he will be 10.3, sodium 135, creatinine 3.41, bilirubin 1.7, and troponin 0.037. He was admitted for acute renal failure and possibly complicated urinary tract infection. He was started on IV fluids and Rocephin. Urology was consulted due to his newly diagnosed bladder mass. He was continued on fluids. Renal ultrasound did show left-sided hydronephrosis. Cardiology was consulted due to elevated troponins he had an echo which showed EF 20% and for the time being cardio recommends medical management. Nephrology was consulted and recommended IV fluids. Renal function improved. Patient was to follow-up with urology pending surgery on 11/09. Losartan being held due to acute kidney injury. Patient on beta octavio. Per cardiology, patient is at high risk to undergo any surgical procedure, however there are no absolute contraindications from cardiac standpoint. Patient was originally discharged on 11/03, but due to persistent weakness, physiatry was consulted. Patient now being discharged to inpatient rehab. Already completed course of antibiotics. Urology is aware of patient's high risk, will be postponing the surgery to a later date. Patient seen and examined at bedside. Vital signs reviewed and stable. General: nontoxic, no distress, appears at stated age Derm: warm, dry Head: atraumatic, normocephalic, symmetric Eyes: EOMI, no lid lag, anicteric sclera Mouth: no lip lesion, mucus membranes moist Cardiovascular: S1S2 reg, no murmur Lungs: CTA bilateral, no rhonchi, no rales , no accessory muscle use Abdominal: soft, nontender to palpation, no guarding, no appreciable organomegaly Ext: no gross muscle atrophy, no edema, no contractures Neuro: CN II-XI grossly intact, no focal neuro deficits Psych: Alert, oriented, appropriate affect A total of 33 minutes of time were spent preparing this complex discharge summary. Patient was discharged on 11/05/22 at 11:14. Patient Condition at Discharge: Stable Plan - Discharge Summary Discharge Rx Participant: No New Discharge Prescriptions: New carvediloL [Coreg*] 12.5 mg PO BID-W/MEALS #60 tab Apixaban [Eliquis] 2.5 mg PO BID #60 tab Pravastatin Sodium [Pravachol] 80 mg PO HS #60 tab Continue Pravastatin Sodium [Pravachol] 40 mg PO HS amLODIPine [Norvasc] 5 mg PO DAILY Tamsulosin HCl [Flomax] 0.4 mg PO DAILY Discontinued Terazosin [Hytrin] 5 mg PO DAILY Losartan [Cozaar] 25 mg PO DAILY Apixaban [Eliquis] 5 mg PO BID atenoloL [Tenormin] 50 mg PO BID Discharge Medication List Pravastatin Sodium [Pravachol] 40 mg PO HS 07/21/17 [History] amLODIPine [Norvasc] 5 mg PO DAILY 05/12/20 [History] Tamsulosin HCl [Flomax] 0.4 mg PO DAILY 10/29/22 [History] Apixaban [Eliquis] 2.5 mg PO BID #60 tab 11/03/22 [Rx] Pravastatin Sodium [Pravachol] 80 mg PO HS #60 tab 11/03/22 [Rx] carvediloL [Coreg*] 12.5 mg PO BID-W/MEALS #60 tab 11/03/22 [Rx] Follow up Appointment(s)/Referral(s): Pricila Paz MD [STAFF PHYSICIAN] - 1 Week [facility], [NON-STAFF] - 1 Week Kvng Saeed DO [Primary Care Provider] - 1-2 days Juan Carlos Leggett MD [STAFF PHYSICIAN] - 1 Week Betito Bravo MD [STAFF PHYSICIAN] - 1 Week Patient Instructions/Handouts: Heart Failure (DC), Acute Kidney Injury (DC) Activity/Diet/Wound Care/Special Instructions: Please see your land commissioner, and urologist. You remain at high risk for any surgical procedure due to your heart failure. Please also see your PCP, and you may need repeat blood work to check your kidney function. Discharge Disposition: OTHER INSTITUTION NOT DEFINED
--- NOTE | 2022-11-05 13:12 | P.PN ---
Progress Note - Text Progress Note Date: 11/05/22 Reason for visit: Hydronephrosis, bladder tumor Interim History: The patient's planned surgery on 11/09/2022 has been canceled for cardiac reasons. The patient expresses no urologic complaints at this time. Impression/Plan: Hydronephrosis. Renal function is stable (creatinine equals 2.2). Bladder tumor. Transurethral resection of bladder tumor to be rescheduled once cardiac status is improved.
[2022-11-05 13:31] VITALS: BP 149/99; PULSE 80; TEMP 97.6
[2022-11-05 14:12] VITALS: BMI 25.1
== END 2022-11-05 15:15 | DRG 682 ==
LOC: EC 22:23 → 3SCARD 10-29 01:39 → OBSVTOIN 10-29 01:39 → INTOOBSV 10-29 01:39 → 3SCARD 10-29 04:20 → 5NMEDONC 10-29 09:17
PROVIDERS: ADMIT Internal Medicine; ATTEND Internal Medicine
DX: N17.9 Acute kidney failure, unspecified (principal); I21.A1 Myocardial infarction type 2; D62 Acute posthemorrhagic anemia; E87.20 Acidosis, unspecified; I42.8 Other cardiomyopathies; I48.19 Other persistent atrial fibrillation; I50.22 Chronic systolic (congestive) heart failure; I47.20 Ventricular tachycardia, unspecified; N13.8 Other obstructive and reflux uropathy; R31.9 Hematuria, unspecified; E78.5 Hyperlipidemia, unspecified; E83.42 Hypomagnesemia; E86.0 Dehydration; E86.1 Hypovolemia; E87.6 Hypokalemia; E87.8 Other disorders of electrolyte and fluid balance, not elsewhere classified; I08.3 Combined rheumatic disorders of mitral, aortic and tricuspid valves; I11.0 Hypertensive heart disease with heart failure; I25.10 Atherosclerotic heart disease of native coronary artery without angina pectoris; I27.20 Pulmonary hypertension, unspecified; M19.90 Unspecified osteoarthritis, unspecified site; N13.6 Pyonephrosis; N40.1 Benign prostatic hyperplasia with lower urinary tract symptoms; Z79.01 Long term (current) use of anticoagulants; Z79.899 Other long term (current) drug therapy; Z82.49 Family history of ischemic heart disease and other diseases of the circulatory system; Z86.79 Personal history of other diseases of the circulatory system; Z87.442 Personal history of urinary calculi; Z87.891 Personal history of nicotine dependence; Z91.81 History of falling; Z95.1 Presence of aortocoronary bypass graft; Z95.5 Presence of coronary angioplasty implant and graft; Z96.641 Presence of right artificial hip joint; Z87.01 Personal history of pneumonia (recurrent); Z71.3 Dietary counseling and surveillance; Z28.311 Partially vaccinated for COVID-19; Z28.21 Immunization not carried out because of patient refusal
CPT/HCPCS: 36415; 76770; 80048; 80053; 81001; 83605; 83735; 84100; 84443; 84484; 85025; 85027; 85610; 85730; 87086; 93005; 93306; 94760; 96361; 96365; 99285

== ENCOUNTER 2022-12-13 21:41 | Inpatient (IN) | payer MEDICARE, BC ==
--- NOTE | 2022-12-13 22:41 | ED ---
Weakness HPI - General Chief complaint: Weakness Stated complaint: Weakness, Dehydration Time Seen by Provider: 12/13/22 22:21 Source: EMS Mode of arrival: EMS Limitations: no limitations - History of Present Illness Initial comments: This patient is an 82-year-old man who is brought to have evaluation of generalized weakness and fatigue. The patient reportedly not able to get out of bed. Family relates that since the start of August he has been less active, having more episodes of fatigue and he has been in the hospital a couple of times. Today they are not able to identify any definite infection. No fever or chills. No cough or dyspnea. Patient denies pains. He does have an indwelling catheter but they had not noted any change in urine output. MD Complaint: generalized weakness -: week(s) Improves with: none Worsens with: none Associated Symptoms: denies other symptoms - Related Data Home Medications Medication Instructions Recorded Confirmed Tamsulosin HCl [Flomax] 0.4 mg PO DAILY 10/29/22 12/14/22 Previous Rx's Medication Instructions Recorded Apixaban [Eliquis] 2.5 mg PO BID #60 tab 11/03/22 Pravastatin Sodium [Pravachol] 80 mg PO HS #60 tab 11/03/22 carvediloL [Coreg*] 12.5 mg PO BID-W/MEALS #60 tab 11/03/22 Famotidine [Pepcid] 20 mg PO DAILY #60 tab 12/24/22 Magnesium Oxide [Mag-Ox] 400 mg PO BID #60 tab 12/24/22 Sodium Bicarbonate Tab 650 mg PO BID #60 tab 12/24/22 hydrALAZINE HCL [Apresoline] 50 mg PO TID #90 tab 12/24/22 metroNIDAZOLE [Flagyl] 500 mg PO TID #9 tab 12/24/22 Allergies Allergy/AdvReac Type Severity Reaction Status Date / Time No Known Allergies Allergy Verified 12/29/22 15:48 Review of Systems ROS Statement: Those systems with pertinent positive or pertinent negative responses have been documented in the HPI. ROS Other: All systems not noted in ROS Statement are negative. Constitutional: Reports: weakness. Denies: fever Eyes: Denies: vision change Respiratory: Denies: cough, dyspnea Cardiovascular: Denies: chest pain, edema, syncope Gastrointestinal: Denies: abdominal pain, vomiting, diarrhea Genitourinary: Reports: other (Garcia catheter). Denies: dysuria, hematuria Skin: Denies: rash Neurological: Denies: headache, weakness, numbness Past Medical History Past Medical History: Atrial Fibrillation, Coronary Artery Disease (CAD), Hypertension, Osteoarthritis (OA), Pneumonia, Prostate Disorder Additional Past Medical History / Comment(s): pneumonia May 2020 after hernia surgery, Last Myocardial Infarction Date:: unknown History of Any Multi-Drug Resistant Organisms: None Reported Past Surgical History: Cholecystectomy, Coronary Bypass/CABG, Heart Catheterization With Stent, Hernia Repair, Joint Replacement Additional Past Surgical History / Comment(s): triple bypass 14 years ago, aortic aneurysm repair, rt hip replacement, left inguinal hernia repair, unsure how many cardiac stents Cystoscopy on 10/26/22 Past Anesthesia/Blood Transfusion Reactions: No Reported Reaction Date of Last Stent Placement:: unknown Past Psychological History: No Psychological Hx Reported Smoking Status: Former smoker Past Alcohol Use History: None Reported Past Drug Use History: None Reported - Past Family History Mother Family Medical History: No Reported History Father Family Medical History: Congestive Heart Failure (CHF) (Father at the age of 78 from CHF.), Hypertension Additional Family Medical History / Comment(s): Patient states that his parents never went to the doctor. He thinks his father of hypertensive disease. He does not know much about his mother. Denies any significant medical history in siblings, is and has kids with no significant medical. lives of at home. Brother(s) Family Medical History: No Reported History (patient has one brother no major issues.) Sister(s) Family Medical History: No Reported History (patient has 2 sisters no major medical problems) Son(s) Family Medical History: No Reported History (patient has 2 sons ok.) Daughter(s) Family Medical History: No Reported History (one daughter ok.) General Exam Limitations: no limitations General appearance: alert, in no apparent distress Head exam: Present: atraumatic, normocephalic Eye exam: Present: normal appearance. Absent: scleral icterus, conjunctival injection Neck exam: Present: normal inspection Respiratory exam: Present: normal lung sounds bilaterally, rhonchi. Absent: respiratory distress, wheezes, rales, stridor, accessory muscle use Cardiovascular Exam: Present: regular rate, normal rhythm, normal heart sounds. Absent: systolic murmur, diastolic murmur, rubs, gallop GI/Abdominal exam: Present: soft. Absent: distended, tenderness, guarding, rebound, rigid, mass Extremities exam: Present: normal inspection, normal capillary refill. Absent: pedal edema, calf tenderness Back exam: Present: normal inspection. Absent: CVA tenderness (R), CVA tenderness (L) Neurological exam: Present: alert, CN II-XII intact. Absent: motor sensory deficit Skin exam: Present: warm, dry, intact, normal color. Absent: rash Course Vital Signs 12/13/22 12/14/22 12/14/22 21:54 02:05 02:59 Temperature 98.7 F Pulse Rate 76 81 80 Respiratory 18 18 18 Rate Blood Pressure 165/77 146/88 140/88 O2 Sat by Pulse 98 97 94 L Oximetry EKG Findings - EKG Results: EKG: interpreted by BHAVESH, normal axis EKG shows: atrial fibrillation (With rate approximate 77 bpm) - Blocks, [place], Hypertrophy, ST Abn: Repolarization changes or abnormalities: nonspecific abnormality, ST segment, and/or T wave Medical Decision Making - Medical Decision Making This patient is an 82-year-old man presenting with worsening of generalized weakness and fatigue. The patient found to have acute on chronic renal failure. The patient's urine also has a number of white blood cells though suspect that this represented colonization due to the indwelling Garcia catheter. Will have dose of antibiotics and cultures sent and Garcia catheter changed as well. The patient had CT of the brain which I interpreted as being negative for acute bony injury or intracranial hemorrhage. The patient had chest x-ray which I interpreted as being negative for acute infiltrate, pneumothorax, congestive heart failure. Was pt. sent in by a medical professional or institution (, PA, SHIRT CLOSER, urgent care, hospital, or shelter...) When possible be specific @ -[No] Did you speak to anyone other than the patient for history (EMS, parent, family, police, friend...)? What history was obtained from this source @ -[EMS personnel did give some history Did you review nursing and triage notes (agree or disagree)? Why? @ -[I reviewed and agree with nursing and triage notes] Were old charts reviewed (outside hosp., previous admission, EMS record, old EKG, old radiological studies, urgent care reports/EKG's, shelter records)? Report findings @ -[No old charts were reviewed] Differential Diagnosis (chest pain, altered mental status, abdominal pain women, abdominal pain men, vaginal bleeding, weakness, fever, dyspnea, syncope, headache, dizziness, GI bleed, back pain, seizure, CVA, palpatations, mental health, musculoskeletal)? @ -[Differential Weakness: Hypoglycemia, shock, sepsis, hyponatremia, anemia, infection, [place], ETOH, adverse medicine reaction, overdose, stroke, this is not meant to be an all-inclusive list. EKG interpreted by me (3pts min.). @ -[As above] X-rays interpreted by me (1pt min.). @ -[I interpreted as above CT interpreted by me (1pt min.). @ -[I interpreted as above U/S interpreted by me (1pt. min.). @ -[None done] What testing was considered but not performed or refused? (CT, X-rays, U/S, labs)? Why? @ -[None] What meds were considered but not given or refused? Why? @ -[None] Did you discuss the management of the patient with other professionals (professionals i.e. , PA, SHIRT CLOSER, lab, RT, psych nurse, social worker health services, outsewer, teacher, biological technical officer, case checker)? Give summary @ -[Case is discussed with the admitting physician Was smoking cessation discussed for >3mins.? @ -[No] Was critical care preformed (if so, how long)? @ -[No] Were there social determinants of health that impacted care today? How? (Homelessness, low income, unemployed, alcoholism, drug addiction, tra nsportation, low edu. Level, literacy, decrease access to med. care, fpc, rehab)? @ -[No] Was there de-escalation of care discussed even if they declined (Discuss DNR or withdrawal of care, Hospice)? DNR status @ -[No] What co-morbidities impacted this encounter? (DM, HTN, Smoking, COPD, CAD, Cancer, CVA, ARF, Chemo, Hep., AIDS, mental health diagnosis, sleep apnea, morbid obesity)? @ -[None] Was patient admitted / discharged? Hospital course, mention meds given and route, prescriptions, significant lab abnormalities, going to OR and other pertinent info. @ -[Patient will be admitted to have further evaluation and treatment, the patient is given IV fluid and antibiotics, case is discussed with admitting physician, admission orders written Undiagnosed new problem with uncertain prognosis? @ -[No] Drug Therapy requiring intensive monitoring for toxicity (Heparin, Nitro, Insulin, Cardizem)? @ -[No] Were any procedures done? @ -[No] Diagnosis/symptom? @ -[Acute generalized weakness and fatigue Acute kidney injury Possible urinary tract infection Acute, or Chronic, or Acute on Chronic? @ -[Acute Uncomplicated (without systemic symptoms) or Complicated (systemic symptoms)? @ -[Complicated Side effects of treatment? @ -[No] Exacerbation, Progression, or Severe Exacerbation? @ -[No] Poses a threat to life or bodily function? How? (Chest pain, [place], [place], pneumonia, PE, COPD, DKA, ARF, appy, cholecystitis, CVA, Diverticulitis, Homicidal, Suicidal, threat to staff... and all critical care pts) @ -[No] - Lab Data Result diagrams: 12/23/22 06:28 12/24/22 06:52 Lab Results 12/13/22 12/13/22 12/13/22 Range/Units 22:25 22:25 22:25 WBC 12.7 H (3.8-10.6) k/uL RBC 2.65 L (4.30-5.90) m/uL Hgb 8.1 L D (13.0-17.5) gm/dL Hct 23.2 L (39.0-53.0) % MCV 87.6 (80.0-100.0) fL MCH 30.5 (25.0-35.0) pg MCHC 34.8 (31.0-37.0) g/dL RDW 13.8 (11.5-15.5) % Plt Count 165 (150-450) k/uL MPV 8.3 Neutrophils % 89 % Lymphocytes % 4 % Monocytes % 5 % Eosinophils % 1 % Basophils % 0 % Neutrophils # 11.3 H (1.3-7.7) k/uL Lymphocytes # 0.5 L (1.0-4.8) k/uL Monocytes # 0.6 (0-1.0) k/uL Eosinophils # 0.2 (0-0.7) k/uL Basophils # 0.0 (0-0.2) k/uL PT 13.3 H (9.0-12.0) sec INR 1.3 H (<1.2) APTT 30.9 H (22.0-30.0) sec Sodium (137-145) mmol/L Potassium (3.5-5.1) mmol/L Chloride (98-107) mmol/L Carbon Dioxide (22-30) mmol/L Anion Gap mmol/L BUN (9-20) mg/dL Creatinine (0.66-1.25) mg/dL Est GFR (CKD-EPI)AfAm (>60 ml/min/1.73 sqM) Est GFR (CKD-EPI)NonAf (>60 ml/min/1.73 sqM) Glucose (74-99) mg/dL Plasma Lactic Acid Minh (0.7-2.0) mmol/L Calcium (8.4-10.2) mg/dL Magnesium (1.6-2.3) mg/dL Total Bilirubin (0.2-1.3) mg/dL AST (17-59) U/L ALT (4-49) U/L Alkaline Phosphatase (38-126) U/L Troponin I (0.000-0.034) ng/mL Total Protein (6.3-8.2) g/dL Albumin (3.5-5.0) g/dL TSH (0.465-4.680) mIU/L Urine Color Light Yellow Urine Appearance Cloudy (Clear) Urine pH 6.0 (5.0-8.0) Ur Specific [place] 1.009 (1.001-1.035) Urine Protein 1+ H (Negative) Urine Glucose (UA) Negative (Negative) Urine Ketones Negative (Negative) Urine Blood Moderate H (Negative) Urine Nitrite Negative (Negative) Urine Bilirubin Negative (Negative) Urine Urobilinogen <2.0 (<2.0) mg/dL Ur Leukocyte Esterase Large H (Negative) Urine RBC 10 H (0-5) /hpf Urine WBC >182 H (0-5) /hpf Urine WBC Clumps Many H (None) /hpf Urine Bacteria Rare H (None) /hpf Hyaline Casts 1 (0-2) /lpf Coronavirus (PCR) (Not Detectd) 12/13/22 12/13/22 12/13/22 Range/Units 22:25 22:25 22:25 WBC (3.8-10.6) k/uL RBC (4.30-5.90) m/uL Hgb (13.0-17.5) gm/dL Hct (39.0-53.0) % MCV (80.0-100.0) fL MCH (25.0-35.0) pg MCHC (31.0-37.0) g/dL RDW (11.5-15.5) % Plt Count (150-450) k/uL MPV Neutrophils % % Lymphocytes % % Monocytes % % Eosinophils % % Basophils % % Neutrophils # (1.3-7.7) k/uL Lymphocytes # (1.0-4.8) k/uL Monocytes # (0-1.0) k/uL Eosinophils # (0-0.7) k/uL Basophils # (0-0.2) k/uL PT (9.0-12.0) sec INR (<1.2) APTT (22.0-30.0) sec Sodium 134 L (137-145) mmol/L Potassium 3.9 (3.5-5.1) mmol/L Chloride 104 (98-107) mmol/L Carbon Dioxide 19 L (22-30) mmol/L Anion Gap 11 mmol/L BUN 59 H (9-20) mg/dL Creatinine 3.86 H (0.66-1.25) mg/dL Est GFR (CKD-EPI)AfAm 16 (>60 ml/min/1.73 sqM) Est GFR (CKD-EPI)NonAf 14 (>60 ml/min/1.73 sqM) Glucose 103 H (74-99) mg/dL Plasma Lactic Acid Minh 0.8 (0.7-2.0) mmol/L Calcium 7.7 L (8.4-10.2) mg/dL Magnesium 2.0 (1.6-2.3) mg/dL Total Bilirubin 0.8 (0.2-1.3) mg/dL AST 14 L (17-59) U/L ALT 9 (4-49) U/L Alkaline Phosphatase 66 (38-126) U/L Troponin I <0.012 (0.000-0.034) ng/mL Total Protein 5.1 L (6.3-8.2) g/dL Albumin 2.9 L (3.5-5.0) g/dL TSH 1.480 (0.465-4.680) mIU/L Urine Color Urine Appearance (Clear) Urine pH (5.0-8.0) Ur Specific [place] (1.001-1.035) Urine Protein (Negative) Urine Glucose (UA) (Negative) Urine Ketones (Negative) Urine Blood (Negative) Urine Nitrite (Negative) Urine Bilirubin (Negative) Urine Urobilinogen (<2.0) mg/dL Ur Leukocyte Esterase (Negative) Urine RBC (0-5) /hpf Urine WBC (0-5) /hpf Urine WBC Clumps (None) /hpf Urine Bacteria (None) /hpf Hyaline Casts (0-2) /lpf Coronavirus (PCR) (Not Detectd) 12/13/22 Range/Units 22:25 WBC (3.8-10.6) k/uL RBC (4.30-5.90) m/uL Hgb (13.0-17.5) gm/dL Hct (39.0-53.0) % MCV (80.0-100.0) fL MCH (25.0-35.0) pg MCHC (31.0-37.0) g/dL RDW (11.5-15.5) % Plt Count (150-450) k/uL MPV Neutrophils % % Lymphocytes % % Monocytes % % Eosinophils % % Basophils % % Neutrophils # (1.3-7.7) k/uL Lymphocytes # (1.0-4.8) k/uL Monocytes # (0-1.0) k/uL Eosinophils # (0-0.7) k/uL Basophils # (0-0.2) k/uL PT (9.0-12.0) sec INR (<1.2) APTT (22.0-30.0) sec Sodium (137-145) mmol/L Potassium (3.5-5.1) mmol/L Chloride (98-107) mmol/L Carbon Dioxide (22-30) mmol/L Anion Gap mmol/L BUN (9-20) mg/dL Creatinine (0.66-1.25) mg/dL Est GFR (CKD-EPI)AfAm (>60 ml/min/1.73 sqM) Est GFR (CKD-EPI)NonAf (>60 ml/min/1.73 sqM) Glucose (74-99) mg/dL Plasma Lactic Acid Minh (0.7-2.0) mmol/L Calcium (8.4-10.2) mg/dL Magnesium (1.6-2.3) mg/dL Total Bilirubin (0.2-1.3) mg/dL AST (17-59) U/L ALT (4-49) U/L Alkaline Phosphatase (38-126) U/L Troponin I (0.000-0.034) ng/mL Total Protein (6.3-8.2) g/dL Albumin (3.5-5.0) g/dL TSH (0.465-4.680) mIU/L Urine Color Urine Appearance (Clear) Urine pH (5.0-8.0) Ur Specific [place] (1.001-1.035) Urine Protein (Negative) Urine Glucose (UA) (Negative) Urine Ketones (Negative) Urine Blood (Negative) Urine Nitrite (Negative) Urine Bilirubin (Negative) Urine Urobilinogen (<2.0) mg/dL Ur Leukocyte Esterase (Negative) Urine RBC (0-5) /hpf Urine WBC (0-5) /hpf Urine WBC Clumps (None) /hpf Urine Bacteria (None) /hpf Hyaline Casts (0-2) /lpf Coronavirus (PCR) Not Detected (Not Detectd) Disposition Clinical Impression: Acute renal failure, Generalized weakness Disposition: ADMITTED IP TO THIS [facility] Condition: Stable Is patient prescribed a controlled substance at d/c from ED?: No
[2022-12-13 22:52] LABS: Basophils % (A) 0 %; Eosinophils # (A) 0.2 k/uL (0-0.7); Eosinophils % (A) 1 %; HCT 23.2 % (39.0-53.0); Lymphocytes # (A) 0.5 k/uL (1.0-4.8); Lymphocytes % (A) 4 %; MCH 30.5 pg (25.0-35.0); MCHC 34.8 g/dL (31.0-37.0); MCV 87.6 fL (80.0-100.0); Mean Platelet Volume 8.3; Monocytes # (A) 0.6 k/uL (0-1.0); Monocytes % (A) 5 %; Neutrophils # (A) 11.3 k/uL (1.3-7.7); Neutrophils % (A) 89 %; Platelet Count 165 k/uL (150-450); RBC 2.65 m/uL (4.30-5.90); RDW 13.8 % (11.5-15.5); WBC 12.7 k/uL (3.8-10.6)
[2022-12-13 23:06] LABS: ALT 9 U/L (4-49); AST 14 U/L (17-59); African American GFR (CKD) 16 (>60 ml/min/1.73 sqM); Albumin 2.9 g/dL (3.5-5.0); Alkaline Phosphatase 66 U/L (38-126); Anion Gap 11 mmol/L; Blood Urea Nitrogen 59 mg/dL (9-20); Calcium 7.7 mg/dL (8.4-10.2); Carbon Dioxide 19 mmol/L (22-30); Chloride 104 mmol/L (98-107); Glucose 103 mg/dL (74-99); Non-African American GFR(CKD) 14 (>60 ml/min/1.73 sqM); Potassium 3.9 mmol/L (3.5-5.1); Sodium 134 mmol/L (137-145); Total Bilirubin 0.8 mg/dL (0.2-1.3); Total Protein 5.1 g/dL (6.3-8.2)
[2022-12-13 23:07] LABS: INR 1.3 (<1.2); Partial Thromboplastin Time 30.9 sec (22.0-30.0); Prothrombin Time 13.3 sec (9.0-12.0)
[2022-12-13 23:09] LABS: Appearance,Urine Cloudy (Clear); Bacteria,Urine Rare /hpf; Bilirubin,Urine Negative (Negative); Blood,Urine Moderate (Negative); Color,Urine Light Yellow; Glucose,Urine (UA) Negative (Negative); Hyaline Casts,Urine 1 /lpf (0-2); Ketones,Urine Negative (Negative); Leukocyte Esterase,Urine Large (Negative); Nitrite,Urine Negative (Negative); Protein,Urine 1+ (Negative); RBC,Urine 10 /hpf (0-5); Specific Gravity,Urine 1.009 (1.001-1.035); Urobilinogen,Urine <2.0 mg/dL (<2.0); WBC,Urine >182 /hpf (0-5)
[2022-12-13 23:15] LABS: HGB 8.1 gm/dL (13.0-17.5)
--- NOTE | 2022-12-14 00:05 | XR ---
EXAM: XR Chest, 2 Views CLINICAL HISTORY: ITS.REASON XR Reason: Weakness TECHNIQUE: Frontal and lateral views of the chest. COMPARISON: No relevant prior studies available. FINDINGS: Lungs: Unremarkable. No consolidation. Pleural space: Unremarkable. No pneumothorax. Heart: Cardiomegaly. Calcified aorta. Mediastinum: Unremarkable. Bones/joints: Sternotomy wires. IMPRESSION: No acute findings in the chest.
--- NOTE | 2022-12-14 00:21 | CT ---
EXAM: CT Head Without Intravenous Contrast CLINICAL HISTORY: ITS.REASON CT Reason: altered mental status TECHNIQUE: Axial computed tomography images of the head/brain without intravenous contrast. CTDI is 49.2 mGy and DLP is 1182.4 mGy-cm. This CT exam was performed using one or more of the following dose reduction techniques: automated exposure control, adjustment of the mA and/or kV according to patient size, and/or use of iterative reconstruction technique. COMPARISON: No relevant prior studies available. FINDINGS: No acute intracranial hemorrhage. No midline shift or mass effect. The territorial shetty-white matter differentiation is maintained throughout. Age-related cerebral volume loss. Periventricular and subcortical white matter hypoattenuation, consistent with chronic microangiopathy. The visualized orbits appear grossly unremarkable. The calvarium is intact. The visualized paranasal sinuses and mastoid air cells are grossly clear. IMPRESSION: No acute intracranial hemorrhage, midline shift, or mass effect.
[2022-12-14] MEDS ORDERED: SODIUM CHLORIDE 0.9% 1,000 ML IV ONE (00:23)
[2022-12-14] MEDS ORDERED: SODIUM CHLORIDE 0.9% 1,000 ML IV STA (00:23)
[2022-12-14] MEDS ORDERED: NALOXONE 0.4 MG/ML 1 ML VIAL IV PRN (00:58)
--- NOTE | 2022-12-14 05:28 | P.HPIM ---
History of Present Illness H&P Date: 12/14/22 Patient is a 82-year-old male with a PMH of A. fib on Eliquis, urinary retention status post indwelling Pena catheter, acute kidney injury, type II DM, hypertension, hyperlipidemia, who presents to the emergency room with complaints of generalized weakness and inability to ambulate. The patient reports that he has been feeling more weak than usual over the past 3-4 days. She reports being unable to stand up off a chair and that he is unable to participate in his ADLs as a result. He denied experiencing fever, chills, abdominal pain, nausea, vomiting, chest pain, shortness of breath, cough. CT brain in the emergency room was unremarkable. Chest x-ray was also unremarkable. EKG revealed A. fib at 77 bpm. Laboratory evaluation was remarkable for leukocytosis of 12.7, and on 8.1, creatinine 3.86 (up from 2.2 from 11/22), with an abnormal UA. ED documentation reviewed and case discussed with ED provider. Review of systems: Pertinent positives and negatives as discussed in HPI, a complete review of systems was performed and all other systems are negative. Physical examination: Vital signs reviewed General: non toxic, no distress, appears at stated age, normal weight Derm: no unusual rashes/lesions, warm Head: atraumatic, normocephalic, symmetric Eyes: EOMI, no lid lag, anicteric sclera, pupils equal round reactive to light ENT: Nose and ears atraumatic Neck: No cervical lymphadenopathy, trachea midline, supple Mouth: no lip lesion, mucus membranes moist Cardiovascular: S1S2 reg, no murmur, positive dorsalis pedis pulse bilateral, no edema Lungs: CTA bilateral, no rhonchi, no rales, no accessory muscle use Abdominal: soft, nontender to palpation, no guarding Ext: muscle strength 3 out of 5 in all 4 extremities grossly, no gross muscle atrophy, no contractures, Neuro: CN II-XI grossly intact, no gross focal neuro deficits Psych: Alert, oriented, appropriate affect Assessment: UTI, in setting of indwelling Pena Debility Acute kidney injury on chronic kidney disease Chronic conditions: A. fib, hypertension, hyperlipidemia, type II Imaging: CT brain in the emergency room was unremarkable. Chest x-ray was also unremarkable. EKG revealed A. fib at 77 bpm. Data Review: Laboratory evaluation was remarkable for leukocytosis of 12.7, and on 8.1, creatinine 3.86 (up from 2.2 from 11/22), with an abnormal UA. Plan: Continue ceftriaxone and follow-up urine cultures and blood cultures Nephrology consulted for [facility] PT consult Continue with IV fluids normal saline DVT prophylaxis: Lovenox The patient is admitted with an anticipated less than 2 midnight stay for evaluation of uti CODE STATUS: Full Code Discussed with: Patient Anticipated discharge place: Home Past Medical History Past Medical History: Atrial Fibrillation, Coronary Artery Disease (CAD), Hypertension, Osteoarthritis (OA), Pneumonia, Prostate Disorder Additional Past Medical History / Comment(s): pneumonia May 2020 after hernia surgery Last Myocardial Infarction Date:: unknown History of Any Multi-Drug Resistant Organisms: None Reported Past Surgical History: Cholecystectomy, Coronary Bypass/CABG, Heart Catheterization With Stent, Hernia Repair, Joint Replacement Additional Past Surgical History / Comment(s): triple bypass 14 years ago, aortic aneurysm repair, rt hip replacement, left inguinal hernia repair, unsure how many cardiac stents Cystoscopy on 10/26/22 (chronic pena placed) Past Anesthesia/Blood Transfusion Reactions: No Reported Reaction Date of Last Stent Placement:: unknown Past Psychological History: No Psychological Hx Reported Smoking Status: Former smoker Past Alcohol Use History: None Reported Additional Past Alcohol Use History / Comment(s): quit smoking 20 yrs. ago, 1ppd for 25 yrs. Past Drug Use History: None Reported - Past Family History Mother Family Medical History: No Reported History Father Family Medical History: Congestive Heart Failure (CHF) (Father at the age of 78 from CHF.), Hypertension Additional Family Medical History / Comment(s): Patient states that his parents never went to the doctor. He thinks his father of hypertensive disease. He does not know much about his mother. Denies any significant medical history in siblings, is and has kids with no significant medical. lives of at home. Brother(s) Family Medical History: No Reported History (patient has one brother no major issues.) Sister(s) Family Medical History: No Reported History (patient has 2 sisters no major medical problems) Son(s) Family Medical History: No Reported History (patient has 2 sons ok.) Daughter(s) Family Medical History: No Reported History (one daughter ok.) Medications and Allergies Home Medications Medication Instructions Recorded Confirmed Type Pravastatin Sodium [Pravachol] 40 mg PO HS 07/21/17 10/29/22 History amLODIPine [Norvasc] 5 mg PO DAILY 05/12/20 10/29/22 History Tamsulosin HCl [Flomax] 0.4 mg PO DAILY 10/29/22 10/29/22 History Apixaban [Eliquis] 2.5 mg PO BID #60 tab 11/03/22 Rx Pravastatin Sodium [Pravachol] 80 mg PO HS #60 tab 11/03/22 Rx carvediloL [Coreg*] 12.5 mg PO BID-W/MEALS #60 tab 11/03/22 Rx Allergies Allergy/AdvReac Type Severity Reaction Status Date / Time No Known Allergies Allergy Verified 12/13/22 21:56 Physical Exam Vitals: Vital Signs Temp Pulse Pulse Resp BP Pulse Ox 12/14/22 04:19 97.9 F 74 18 96 12/14/22 02:59 80 18 140/88 94 L 12/14/22 02:05 81 18 146/88 97 12/13/22 21:54 98.7 F 76 18 165/77 98 Intake and Output 12/13/22 12/13/22 12/14/22 14:59 22:59 06:59 Other: Weight 81.647 kg 81.647 kg Results CBC & Chem 7: 12/13/22 22:25 12/13/22 22:25 Labs: Abnormal Lab Results - Last 24 Hours (Table) 12/13/22 12/13/22 12/13/22 Range/Units 22:25 22:25 22:25 WBC 12.7 H (3.8-10.6) k/uL RBC 2.65 L (4.30-5.90) m/uL Hgb 8.1 L D (13.0-17.5) gm/dL Hct 23.2 L (39.0-53.0) % Neutrophils # 11.3 H (1.3-7.7) k/uL Lymphocytes # 0.5 L (1.0-4.8) k/uL PT 13.3 H (9.0-12.0) sec INR 1.3 H (<1.2) APTT 30.9 H (22.0-30.0) sec Sodium (137-145) mmol/L Carbon Dioxide (22-30) mmol/L BUN (9-20) mg/dL Creatinine (0.66-1.25) mg/dL Glucose (74-99) mg/dL Calcium (8.4-10.2) mg/dL AST (17-59) U/L Total Protein (6.3-8.2) g/dL Albumin (3.5-5.0) g/dL Urine Protein 1+ H (Negative) Urine Blood Moderate H (Negative) Ur Leukocyte Esterase Large H (Negative) Urine RBC 10 H (0-5) /hpf Urine WBC >182 H (0-5) /hpf Urine WBC Clumps Many H (None) /hpf Urine Bacteria Rare H (None) /hpf 12/13/22 Range/Units 22:25 WBC (3.8-10.6) k/uL RBC (4.30-5.90) m/uL Hgb (13.0-17.5) gm/dL Hct (39.0-53.0) % Neutrophils # (1.3-7.7) k/uL Lymphocytes # (1.0-4.8) k/uL PT (9.0-12.0) sec INR (<1.2) APTT (22.0-30.0) sec Sodium 134 L (137-145) mmol/L Carbon Dioxide 19 L (22-30) mmol/L BUN 59 H (9-20) mg/dL Creatinine 3.86 H (0.66-1.25) mg/dL Glucose 103 H (74-99) mg/dL Calcium 7.7 L (8.4-10.2) mg/dL AST 14 L (17-59) U/L Total Protein 5.1 L (6.3-8.2) g/dL Albumin 2.9 L (3.5-5.0) g/dL Urine Protein (Negative) Urine Blood (Negative) Ur Leukocyte Esterase (Negative) Urine RBC (0-5) /hpf Urine WBC (0-5) /hpf Urine WBC Clumps (None) /hpf Urine Bacteria (None) /hpf Thrombosis Risk Factor Assmnt - Choose All That Apply Any of the Below Risk Factors Present?: Yes Each Risk Factor Represents 3 Points: Age 75 years or older Thrombosis Risk Factor Assessment Total Risk Factor Score: 3 Thrombosis Risk Factor Assessment Level: Moderate Risk
[2022-12-14] MEDS ORDERED: ENOXAPARIN 40 MG/0.4 ML SYRINGE SQ SCH (09:00)
[2022-12-14] MEDS ORDERED: FAMOTIDINE 20 MG TAB PO SCH (09:00)
--- NOTE | 2022-12-14 09:03 | P.GSCN ---
History of Present Illness Consult date: 12/14/22 History of present illness: 82 yo male admitted with generalized weakness. the patient has a small superficial bladder tumor. He was scheduled to have a turbt a few weeks ago but due to poor cardiac status I was aked to postpone the surgery until his medical status was optimized. He went to the [facility]. He was rescheduled for the near future. He also has had urine retention Review of Systems - Constitutional Reports weakness - Cardiovascular Reports decreased exercise tolerance, Reports irregular heart beat - Genitourinary Reports urinary retention Past Medical History Past Medical History: Atrial Fibrillation, Coronary Artery Disease (CAD), Hypertension, Osteoarthritis (OA), Pneumonia, Prostate Disorder Additional Past Medical History / Comment(s): pneumonia May 2020 after hernia surgery Last Myocardial Infarction Date:: unknown History of Any Multi-Drug Resistant Organisms: None Reported Past Surgical History: Cholecystectomy, Coronary Bypass/CABG, Heart Catheterization With Stent, Hernia Repair, Joint Replacement Additional Past Surgical History / Comment(s): triple bypass 14 years ago, aortic aneurysm repair, rt hip replacement, left inguinal hernia repair, unsure how many cardiac stents Cystoscopy on 10/26/22 (chronic pena placed) Past Anesthesia/Blood Transfusion Reactions: No Reported Reaction Date of Last Stent Placement:: unknown Past Psychological History: No Psychological Hx Reported Smoking Status: Former smoker Past Alcohol Use History: None Reported Additional Past Alcohol Use History / Comment(s): quit smoking 20 yrs. ago, 1ppd for 25 yrs. Past Drug Use History: None Reported - Past Family History Mother Family Medical History: No Reported History Father Family Medical History: Congestive Heart Failure (CHF) (Father at the age of 78 from CHF.), Hypertension Additional Family Medical History / Comment(s): Patient states that his parents never went to the doctor. He thinks his father of hypertensive disease. He does not know much about his mother. Denies any significant medical history in siblings, is and has kids with no significant medical. lives of at home. Brother(s) Family Medical History: No Reported History (patient has one brother no major issues.) Sister(s) Family Medical History: No Reported History (patient has 2 sisters no major medical problems) Son(s) Family Medical History: No Reported History (patient has 2 sons ok.) Daughter(s) Family Medical History: No Reported History (one daughter ok.) Medications and Allergies Home Medications Medication Instructions Recorded Confirmed Type Pravastatin Sodium [Pravachol] 40 mg PO HS 07/21/17 12/14/22 History amLODIPine [Norvasc] 5 mg PO DAILY 05/12/20 12/14/22 History Tamsulosin HCl [Flomax] 0.4 mg PO DAILY 10/29/22 12/14/22 History Apixaban [Eliquis] 2.5 mg PO BID #60 tab 11/03/22 12/14/22 Rx Pravastatin Sodium [Pravachol] 80 mg PO HS #60 tab 11/03/22 12/14/22 Rx carvediloL [Coreg*] 12.5 mg PO BID-W/MEALS #60 tab 11/03/22 12/14/22 Rx Allergies Allergy/AdvReac Type Severity Reaction Status Date / Time No Known Allergies Allergy Verified 12/14/22 08:03 Surgical - Exam Vital Signs Temp Pulse Resp BP Pulse Ox 98.7 F 76 18 165/77 98 12/13/22 21:54 12/13/22 21:54 12/13/22 21:54 12/13/22 21:54 12/13/22 21:54 - General frail well developed, well nourished, no distress - Eyes normal ocular movement, no icteric - ENT no hearing loss, no congestion - Neck no masses, trachea midline - Respiratory normal respiratory effort, clear to auscultation - Abdomen Abdomen: soft, non tender, no guarding, no rigid, no rebound - Genitourinary indwelling catheter with slightly cloudy urine - Integumentary no rash, no abnormal pigmentation - Neurologic no disoriented, no combative - Psychiatric oriented to time, oriented to person, oriented to place, speech is normal, memory intact Results - Labs 12/13/22 22:25 12/13/22 22:25 Abnormal Lab Results - Last 24 Hours (Table) 12/13/22 12/13/22 12/13/22 Range/Units 22:25 22:25 22:25 WBC 12.7 H (3.8-10.6) k/uL RBC 2.65 L (4.30-5.90) m/uL Hgb 8.1 L D (13.0-17.5) gm/dL Hct 23.2 L (39.0-53.0) % Neutrophils # 11.3 H (1.3-7.7) k/uL Lymphocytes # 0.5 L (1.0-4.8) k/uL PT 13.3 H (9.0-12.0) sec INR 1.3 H (<1.2) APTT 30.9 H (22.0-30.0) sec Sodium (137-145) mmol/L Carbon Dioxide (22-30) mmol/L BUN (9-20) mg/dL Creatinine (0.66-1.25) mg/dL Glucose (74-99) mg/dL Calcium (8.4-10.2) mg/dL AST (17-59) U/L Total Protein (6.3-8.2) g/dL Albumin (3.5-5.0) g/dL Urine Protein 1+ H (Negative) Urine Blood Moderate H (Negative) Ur Leukocyte Esterase Large H (Negative) Urine RBC 10 H (0-5) /hpf Urine WBC >182 H (0-5) /hpf Urine WBC Clumps Many H (None) /hpf Urine Bacteria Rare H (None) /hpf 12/13/22 Range/Units 22:25 WBC (3.8-10.6) k/uL RBC (4.30-5.90) m/uL Hgb (13.0-17.5) gm/dL Hct (39.0-53.0) % Neutrophils # (1.3-7.7) k/uL Lymphocytes # (1.0-4.8) k/uL PT (9.0-12.0) sec INR (<1.2) APTT (22.0-30.0) sec Sodium 134 L (137-145) mmol/L Carbon Dioxide 19 L (22-30) mmol/L BUN 59 H (9-20) mg/dL Creatinine 3.86 H (0.66-1.25) mg/dL Glucose 103 H (74-99) mg/dL Calcium 7.7 L (8.4-10.2) mg/dL AST 14 L (17-59) U/L Total Protein 5.1 L (6.3-8.2) g/dL Albumin 2.9 L (3.5-5.0) g/dL Urine Protein (Negative) Urine Blood (Negative) Ur Leukocyte Esterase (Negative) Urine RBC (0-5) /hpf Urine WBC (0-5) /hpf Urine WBC Clumps (None) /hpf Urine Bacteria (None) /hpf Diabetes panel 12/13/22 Range/Units 22:25 Sodium 134 L (137-145) mmol/L Potassium 3.9 (3.5-5.1) mmol/L Chloride 104 (98-107) mmol/L Carbon Dioxide 19 L (22-30) mmol/L BUN 59 H (9-20) mg/dL Creatinine 3.86 H (0.66-1.25) mg/dL Glucose 103 H (74-99) mg/dL Calcium 7.7 L (8.4-10.2) mg/dL AST 14 L (17-59) U/L ALT 9 (4-49) U/L Alkaline Phosphatase 66 (38-126) U/L Total Protein 5.1 L (6.3-8.2) g/dL Albumin 2.9 L (3.5-5.0) g/dL Thyroid panel 12/13/22 Range/Units 22:25 TSH 1.480 (0.465-4.680) mIU/L Calcium panel 12/13/22 Range/Units 22:25 Calcium 7.7 L (8.4-10.2) mg/dL Albumin 2.9 L (3.5-5.0) g/dL Pituitary panel 12/13/22 Range/Units 22:25 Sodium 134 L (137-145) mmol/L Potassium 3.9 (3.5-5.1) mmol/L Chloride 104 (98-107) mmol/L Carbon Dioxide 19 L (22-30) mmol/L BUN 59 H (9-20) mg/dL Creatinine 3.86 H (0.66-1.25) mg/dL Glucose 103 H (74-99) mg/dL Calcium 7.7 L (8.4-10.2) mg/dL TSH 1.480 (0.465-4.680) mIU/L Adrenal panel 12/13/22 Range/Units 22:25 Sodium 134 L (137-145) mmol/L Potassium 3.9 (3.5-5.1) mmol/L Chloride 104 (98-107) mmol/L Carbon Dioxide 19 L (22-30) mmol/L BUN 59 H (9-20) mg/dL Creatinine 3.86 H (0.66-1.25) mg/dL Glucose 103 H (74-99) mg/dL Calcium 7.7 L (8.4-10.2) mg/dL Total Bilirubin 0.8 (0.2-1.3) mg/dL AST 14 L (17-59) U/L ALT 9 (4-49) U/L Alkaline Phosphatase 66 (38-126) U/L Total Protein 5.1 L (6.3-8.2) g/dL Albumin 2.9 L (3.5-5.0) g/dL Assessment and Plan Assessment: Impression: Generalized weakness. History of bladder cancer History of urinary retention. cardiac disease crf Plan: the patient will need a turbt when he is cleared medically for anesthesia. I will follow.
--- NOTE | 2022-12-14 13:20 | P.NPCON ---
History of Present Illness - Reason for Consult chronic renal failure - History of Present Illness Patient is a 82-year-old male with history of bladder cancer, BPH with urine retention and bilateral hydronephrosis. Patient currently has an indwelling Pena catheter. Patient was seen on 10/31/2022 during his last hospitalization for acute kidney injury. Serum creatinine had peaked at 3.4 mg/dL and improved to about 2.2 mg/dL on 11/04/2022 upon discharge. Patient was supposed to have TURP as outpatient but that has been postponed. Patient is admitted to the hospital this time with complaints of increased weakness and inability to get up from the chair. Patient denies any history of nausea vomiting or diarrhea. No history of fever or chills or cough or chest pains or shortness of breath. Patient reports having had good urine output in the Pena bag. Serum creatinine is at 3.8 mg/dL which is down from 4.1 on 12/09/2022. Blood pressure is not low. No nephrotoxic agents noted on med list. Review of Systems As per HPI. Past Medical History Past Medical History: Atrial Fibrillation, Coronary Artery Disease (CAD), Hypertension, Osteoarthritis (OA), Pneumonia, Prostate Disorder Additional Past Medical History / Comment(s): pneumonia May 2020 after hernia surgery Last Myocardial Infarction Date:: unknown History of Any Multi-Drug Resistant Organisms: None Reported Past Surgical History: Cholecystectomy, Coronary Bypass/CABG, Heart Catheterization With Stent, Hernia Repair, Joint Replacement Additional Past Surgical History / Comment(s): triple bypass 14 years ago, aortic aneurysm repair, rt hip replacement, left inguinal hernia repair, unsure how many cardiac stents Cystoscopy on 10/26/22 (chronic pena placed) Past Anesthesia/Blood Transfusion Reactions: No Reported Reaction Date of Last Stent Placement:: unknown Past Psychological History: No Psychological Hx Reported Smoking Status: Former smoker Past Alcohol Use History: None Reported Additional Past Alcohol Use History / Comment(s): quit smoking 20 yrs. ago, 1ppd for 25 yrs. Past Drug Use History: None Reported - Past Family History Mother Family Medical History: No Reported History Father Family Medical History: Congestive Heart Failure (CHF) (Father at the age of 78 from CHF.), Hypertension Additional Family Medical History / Comment(s): Patient states that his parents never went to the doctor. He thinks his father of hypertensive disease. He does not know much about his mother. Denies any significant medical history in siblings, is and has kids with no significant medical. lives of at home. Brother(s) Family Medical History: No Reported History (patient has one brother no major issues.) Sister(s) Family Medical History: No Reported History (patient has 2 sisters no major medical problems) Son(s) Family Medical History: No Reported History (patient has 2 sons ok.) Daughter(s) Family Medical History: No Reported History (one daughter ok.) Medications and Allergies Home Medications Medication Instructions Recorded Confirmed Type Pravastatin Sodium [Pravachol] 40 mg PO HS 07/21/17 12/14/22 History amLODIPine [Norvasc] 5 mg PO DAILY 05/12/20 12/14/22 History Tamsulosin HCl [Flomax] 0.4 mg PO DAILY 10/29/22 12/14/22 History Apixaban [Eliquis] 2.5 mg PO BID #60 tab 11/03/22 12/14/22 Rx Pravastatin Sodium [Pravachol] 80 mg PO HS #60 tab 11/03/22 12/14/22 Rx carvediloL [Coreg*] 12.5 mg PO BID-W/MEALS #60 tab 11/03/22 12/14/22 Rx Allergies Allergy/AdvReac Type Severity Reaction Status Date / Time No Known Allergies Allergy Verified 12/14/22 08:03 Physical Exam Vitals: Vital Signs Temp Pulse Pulse Resp BP BP Pulse Ox 12/14/22 11:00 97.6 F 74 17 128/82 95 12/14/22 07:10 97.9 F 67 16 137/77 98 12/14/22 04:19 97.9 F 74 18 96 12/14/22 02:59 80 18 140/88 94 L 12/14/22 02:05 81 18 146/88 97 12/13/22 21:54 98.7 F 76 18 165/77 98 Intake and Output 12/13/22 12/14/22 12/14/22 22:59 06:59 14:59 Intake Total 120 Output Total 1000 Balance -880 Intake: Oral 120 Output: Urine 1000 Other: Voiding Method Indwelling Catheter # Bowel Movements 0 1 Weight 81.647 kg 81.647 kg Patient is awake, comfortable, alert oriented 3. No acute distress Examination of the heart S1 and S2 Examination of the lungs bilateral breath sounds are heard Abdomen is soft nontender Examination lower extremities shows no significant edema [employer] exam grossly intact Results - Lab Results Most recent lab results Calcium 7.7 mg/dL (8.4-10.2) L 12/13/22 22:25 Magnesium 2.0 mg/dL (1.6-2.3) 12/13/22 22:25 12/13/22 22:25 12/13/22 22:25 Assessment and Plan Assessment: 1. Acute kidney injury , mostly prerenal associated with volume depletion. Patient feels better with IV hydration. There is definitely a component of obstructive uropathy with indwelling Pena catheter. Patient had bilateral hydronephrosis during his last admission when he was diagnosed with urine retent ion. An ultrasound will be ordered again to see if the obstruction has improved. 2. Bladder cancer being followed by urology 3. BPH being followed by urology for possible TURP procedure 4. Mild non-gap metabolic acidosis 5. Pyuria rule out UTI Plan: Maintain patient on IV hydration Repeat labs in a.m. Repeat ultrasound of the kidneys May continue with empiric antibiotics. Thank you for the consultation. We will continue to follow the patient with you during his hospitalization.
--- NOTE | 2022-12-14 14:04 | P.PN ---
Progress Note - Text Progress Note Date: 12/14/22 Hospitalist Interval Note Patient seen and examined at bedside. Vital signs reviewed General: non toxic, no distress, appears at stated age, normal weight Derm: no unusual rashes/lesions, warm Head: atraumatic, normocephalic, symmetric Eyes: EOMI, no lid lag, anicteric sclera, pupils equal round reactive to light ENT: Nose and ears atraumatic Neck: No cervical lymphadenopathy, trachea midline, supple Mouth: no lip lesion, mucus membranes moist Cardiovascular: S1S2 reg, no murmur, positive dorsalis pedis pulse bilateral, no edema Lungs: CTA bilateral, no rhonchi, no rales, no accessory muscle use Abdominal: soft, nontender to palpation, no guarding Ext: muscle strength 3 out of 5 in all 4 extremities grossly, no gross muscle atrophy, no contractures, Neuro: CN II-XI grossly intact, no gross focal neuro deficits Psych: Alert, oriented, appropriate affect Assessment/Plan: Urinary tract infection in the setting of chronic indwelling Garcia Debility Acute kidney injury History of systolic CHF -Nephrology consulted -Remains on IV antibiotics -Started on IV fluids -Renal ultrasound pending This is an update note for patient . There is no charge associated with this note.
[2022-12-14] MEDS: SODIUM CHLORIDE 0.9% 1,000 ML IV SCH (17:48)
--- NOTE | 2022-12-14 18:43 | US ---
EXAMINATION TYPE: US kidneys/renal and bladder DATE OF EXAM: 12/14/2022 COMPARISON: 10/29/22 CLINICAL INDICATION: Male, 82 years old with history of priyank; priyank EXAM MEASUREMENTS: Right Kidney: 11.5 x 7.1 x 6.0 cm Left Kidney: 15.7 x 7.8 x 9.2 cm Right Kidney: cyst seen upper pole measuring 1.0 x 0.9 x 0.9cm. Mild to moderate hydronephrosis Left Kidney: Severe hydronephrosis seen. Cortical thinning Bladder: Garcia in place. Wall appears heterogeneous Bilateral Jets seen: No Mild to moderate right hydronephrosis redemonstrated. Severe left hydronephrosis demonstrated with co rtical thinning. No nephrolithiasis or solid mass identified. Simple exophytic cyst in the upper pole of the right kidney. Garcia catheter in place with the bladder with heterogenous bladder wall. IMPRESSION: Overall similar examination with severe left-sided hydronephrosis and mild to moderate right-sided hy dronephrosis. There is again renal parenchymal thinning on the left suggesting chronic process.
[2022-12-14] MEDS: PRAVASTATIN SODIUM 80 MG TAB PO SCH (21:26)
[2022-12-15] MEDS: SODIUM CHLORIDE 0.9% 1,000 ML IV SCH ×2 (03:05→08:51)
[2022-12-15 06:30] LABS: Basophils % (A) 0 %; Eosinophils # (A) 0.2 k/uL (0-0.7); Eosinophils % (A) 2 %; HCT 25.7 % (39.0-53.0); HGB 8.7 gm/dL (13.0-17.5); Lymphocytes # (A) 0.6 k/uL (1.0-4.8); Lymphocytes % (A) 6 %; MCH 29.8 pg (25.0-35.0); MCHC 33.6 g/dL (31.0-37.0); MCV 88.8 fL (80.0-100.0); Mean Platelet Volume 8.4; Monocytes # (A) 0.5 k/uL (0-1.0); Monocytes % (A) 5 %; Neutrophils % (A) 86 %; Platelet Count 179 k/uL (150-450); RDW 13.8 % (11.5-15.5); WBC 9.3 k/uL (3.8-10.6)
[2022-12-15 06:51] LABS: African American GFR (CKD) 17 (>60 ml/min/1.73 sqM); Anion Gap 10 mmol/L; Blood Urea Nitrogen 50 mg/dL (9-20); Calcium 7.5 mg/dL (8.4-10.2); Carbon Dioxide 19 mmol/L (22-30); Chloride 109 mmol/L (98-107); Glucose 84 mg/dL (74-99); Non-African American GFR(CKD) 14 (>60 ml/min/1.73 sqM); Potassium 3.6 mmol/L (3.5-5.1); Sodium 138 mmol/L (137-145)
[2022-12-15] MEDS: FAMOTIDINE 20 MG TAB PO SCH (08:51)
[2022-12-15] MEDS: TAMSULOSIN 0.4 MG CAP.ER.24H PO SCH (08:51)
[2022-12-15] MEDS: ENOXAPARIN 30 MG/0.3 ML SYRINGE SQ SCH (08:51)
[2022-12-15] MEDS: DARBEPOETIN ALFA 60 MCG/0.3 ML SYRINGE SQ SCH (12:13)
--- NOTE | 2022-12-15 13:19 | P.PN ---
Subjective Progress Note Date: 12/15/22 Patient is a 82-year-old male with a PMH of A. fib on Eliquis, urinary retention status post indwelling Pena catheter, acute kidney injury, type II DM, hypertension, hyperlipidemia, who presents to the emergency room with complaints of generalized weakness and inability to ambulate. The patient reports that he has been feeling more weak than usual over the past 3-4 days. He reports being unable to stand up off a chair and that he is unable to participate in his ADLs as a result. CT brain in the emergency room was unremarkable. Chest x-ray was also unremarkable. EKG revealed A. fib at 77 bpm. Laboratory evaluation was remarkable for leukocytosis of 12.7, and on 8.1, creatinine 3.86 (up from 2.2 from 11/22), with an abnormal UA. 12/15 Patient was seen and examined. No acute events overnight. He reports no complaints today. CBC shows hemoglobin of 8.7. BMP shows chloride of 109, bicarb of 19, BUN of 50, creatinine of 3.68, calcium of 7.5. Renal ultrasound shows severe left-sided hydronephrosis with mild to moderate right-sided hydronephrosis. Vital signs: BP 144/89. HR 80. T 97.9F. 97% on RA. RR 18. General: non toxic, no distress, appears at stated age, normal weight Derm: no unusual rashes/lesions, warm Head: atraumatic, normocephalic, symmetric Eyes: EOMI, no lid lag, anicteric sclera ENT: Nose and ears atraumatic Neck: No cervical lymphadenopathy, trachea midline, supple Mouth: no lip lesion, mucus membranes moist Cardiovascular: S1S2 reg, no murmur, no edema Lungs: CTA bilateral, no rhonchi, no rales, no accessory muscle use Abdominal: soft, nontender to palpation, no guarding, + pena catheter Ext: no gross muscle atrophy, no contractures, Neuro: no gross focal neuro deficits Psych: Alert, oriented, appropriate affect UTI, in setting of indwelling Pena Acute kidney injury on chronic kidney disease Normocytic anemia Hyperchloremic metabolic acidosis Hypocalcemia Chronic conditions: A. fib, hypertension, hyperlipidemia, type II Based on my assessment of this patient, this patient meets a high complexity level of care. Patient has an acute diagnosis of MARION on CKD due to obstructive uropathy complicated with UTI that poses a threat to life or bodily function. UTI, in setting of indwelling Pena: Continue Rocephin 1g IV QD. UCx gram negative bacilli. BCx prelim negative. Acute kidney injury on chronic kidney disease: Cr 3.68. Nephrology recommends IV hydration. Awaiting Urology recommendations for possible OR. Normocytic anemia: Hg 8.7. Stable. Transfuse if Hg < 7. 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 Hyperchloremic metabolic acidosis Hypocalcemia I have reviewed the following human capital consultant notes: Nephrology note reviewed. I have reviewed the results of the following tests: CBC, BMP, UCx, BCx. I have ordered the following tests: CBC and BMP. I have discussed the care of this patient with the following independent historian: Case discussed with RN. I have independently interpreted the following test below: I have discussed the management of this patient with the following physician: Objective - Vital Signs Vital signs: Vital Signs Temp 97.9 F 12/15/22 12:07 Pulse 80 12/15/22 12:07 Resp 18 12/15/22 12:07 BP 144/89 12/15/22 12:07 Pulse Ox 97 12/15/22 12:07 FiO2 Intake & Output 12/14/22 12/15/22 12/15/22 18:59 06:59 18:59 Output Total 900 1700 625 Balance -900 -1700 -625 Output: Urine 900 1700 625 Other: Voiding Method Indwelling Catheter Indwelling Catheter Indwelling Catheter # Bowel Movements 1 1 1 - Labs CBC & Chem 7: 12/15/22 05:18 12/15/22 05:18 Labs: Abnormal Lab Results - Last 24 Hours (Table) 12/15/22 12/15/22 Range/Units 05:18 05:18 RBC 2.90 L (4.30-5.90) m/uL Hgb 8.7 L (13.0-17.5) gm/dL Hct 25.7 L (39.0-53.0) % Neutrophils # 8.0 H (1.3-7.7) k/uL Lymphocytes # 0.6 L (1.0-4.8) k/uL Chloride 109 H (98-107) mmol/L Carbon Dioxide 19 L (22-30) mmol/L BUN 50 H (9-20) mg/dL Creatinine 3.68 H (0.66-1.25) mg/dL Calcium 7.5 L (8.4-10.2) mg/dL Microbiology - Last 24 Hours (Table) 12/14/22 00:55 Blood Culture - Preliminary Blood 12/14/22 00:40 Blood Culture - Preliminary Blood 12/14/22 00:25 Urine Culture - Preliminary Urine,Catheterized Gram Neg Bacilli
--- NOTE | 2022-12-15 13:31 | P.PN ---
Subjective Patient is seen for follow-up for acute kidney injury and top of chronic kidney disease. Renal function has improved slightly with IV hydration. Patient also has obstructive uropathy and has an indwelling Garcia catheter. Repeat ultrasound continues to show bilateral hydronephrosis. Patient is being followed by urology. No complaints today. Patient states that he would like to go home if there is no plan for any intervention. Objective - Vital Signs Vital signs: Vital Signs Temp 97.9 F 12/15/22 12:07 Pulse 80 12/15/22 12:07 Resp 18 12/15/22 12:07 BP 144/89 12/15/22 12:07 Pulse Ox 97 12/15/22 12:07 FiO2 Intake & Output 12/14/22 12/15/22 12/15/22 18:59 06:59 18:59 Output Total 900 1700 625 Balance -900 -1700 -625 Output: Urine 900 1700 625 Other: Voiding Method Indwelling Catheter Indwelling Catheter Indwelling Catheter # Bowel Movements 1 1 1 - Exam Patient is awake, comfortable, alert oriented 3. No acute distress Examination of the heart S1 and S2 Examination of the lungs bilateral breath sounds are heard Abdomen is soft nontender Examination lower extremities shows no significant edema [employer] exam grossly intact - Labs CBC & Chem 7: 12/15/22 05:18 12/15/22 05:18 Labs: Abnormal Lab Results - Last 24 Hours (Table) 12/15/22 12/15/22 Range/Units 05:18 05:18 RBC 2.90 L (4.30-5.90) m/uL Hgb 8.7 L (13.0-17.5) gm/dL Hct 25.7 L (39.0-53.0) % Neutrophils # 8.0 H (1.3-7.7) k/uL Lymphocytes # 0.6 L (1.0-4.8) k/uL Chloride 109 H (98-107) mmol/L Carbon Dioxide 19 L (22-30) mmol/L BUN 50 H (9-20) mg/dL Creatinine 3.68 H (0.66-1.25) mg/dL Calcium 7.5 L (8.4-10.2) mg/dL Microbiology - Last 24 Hours (Table) 12/14/22 00:55 Blood Culture - Preliminary Blood 12/14/22 00:40 Blood Culture - Preliminary Blood 12/14/22 00:25 Urine Culture - Preliminary Urine,Catheterized Gram Neg Bacilli Assessment and Plan Assessment: 1. Acute kidney injury obstructive uropathy with possible prerenal component. Maintained on IV hydration and with indwelling Garcia catheter. Repeat ultrasound continues to show bilateral hydronephrosis. Patient is being followed by urology 2. Bladder cancer being followed by urology 3. BPH being followed by urology for possible TURP procedure 4. Mild non-gap metabolic acidosis 5. Pyuria rule out UTI Plan: Continue with IV fluids Consider intervention this hospitalization as renal function remains impaired with previous creatinine at 1.1 on 08/05/2022
[2022-12-15 15:00] LABS: % Iron Saturation 15.98 (15.00-50.00)
[2022-12-15] MEDS: PRAVASTATIN SODIUM 80 MG TAB PO SCH (19:55)
[2022-12-16 06:33] LABS: HCT 26.3 % (39.0-53.0); MCH 30.5 pg (25.0-35.0); MCHC 34.4 g/dL (31.0-37.0); MCV 88.7 fL (80.0-100.0); Platelet Count 175 k/uL (150-450); RBC 2.96 m/uL (4.30-5.90); RDW 13.7 % (11.5-15.5); WBC 7.6 k/uL (3.8-10.6)
[2022-12-16 06:54] LABS: African American GFR (CKD) 19 (>60 ml/min/1.73 sqM); Anion Gap 10 mmol/L; Blood Urea Nitrogen 42 mg/dL (9-20); Calcium 7.8 mg/dL (8.4-10.2); Carbon Dioxide 19 mmol/L (22-30); Chloride 109 mmol/L (98-107); Glucose 82 mg/dL (74-99); Non-African American GFR(CKD) 16 (>60 ml/min/1.73 sqM); Potassium 3.3 mmol/L (3.5-5.1); Sodium 138 mmol/L (137-145)
[2022-12-16] MEDS ORDERED: POTASSIUM CHLORIDE ER 20 MEQ TAB.ER PO STA (08:54)
[2022-12-16] MEDS: SODIUM CHLORIDE 0.9% 1,000 ML IV SCH ×2 (09:16→09:22)
--- NOTE | 2022-12-16 09:17 | CDI ---
Documentation Clarification Form Date: 12/16/2022 08:48:32 AM From: Chanelle Prado RN CCDS Phone: [phone] Admit Date: 12/14/2022 11:50:00 AM Patient Name: Dago Lyman Visit Number: [id number] Discharge Date: ATTENTION: The Clinical Documentation Specialists (CDI) and [facility] Coding Staff appreciate your assistance in clarifying documentation. Please respond to the clarification below the line at the bottom and electronically sign. The CDI & [facility] Coding staff will review the response and follow-up if needed. Please note: Queries are made part of the Legal Health Record. If you have any questions, please contact the author of this message via ITS. Dr. Pricila Paz Chronic renal failure is documented in Nephrology consult, 12/14. Please clarify if there is an additional diagnosis and/or clinical significance related to this value. History/Risk Factors: 82-year-old male presents to the ED for generalized weakness over the past three to four days. Medical History: A.fib on Eliquis, urinary retention status post indwelling pena catheter, DM2, HTN, HLD and Bladder cancer. 12/14, H&P. Historical BUN/CR/GFR 06/01/2022: BUN: 19.6 CR: 1.1 GFR: 63.1 08/05/2022: BUN: 23.9 CR: 1.1 GFR: 64.5 10/28/2022: BUN: 60.0 CR: 3.41 GFR: 16.0 Clinical Indicators: Current BUN/CR/GFR 12/13/2022: BUN: 54.7 CR: 4.1 GFR: 14.0 Treatment: 12/14 Ultrasound of the kidneys; IV hydration; Monitoring BUN, CR and GFR; Monitoring I&Os; No Nephrotic medications. Is there an additional diagnosis and/or clinical significance related to the above lab result/information? [ ] CKD Stage 1 (GFR > 90) [ ] CKD Stage 2 (GFR 60-89) [ ] CKD Stage 3 (GFR 30-59) [ ] CKD Stage 3a (GFR 45-59) [ ] CKD Stage 3b (GFR 30-44) [ ] CKD Stage 4 (GFR 15-29) [ ] CKD Stage 5 (GFR <15) [ x ] No additional diagnosis/Not clinically significant [ ] Other, please specify [ ] Unable to determine (Template Last Revised: June 2020) MTDD
[2022-12-16] MEDS: ENOXAPARIN 30 MG/0.3 ML SYRINGE SQ SCH (09:37)
[2022-12-16] MEDS: TAMSULOSIN 0.4 MG CAP.ER.24H PO SCH (09:37)
[2022-12-16] MEDS: FAMOTIDINE 20 MG TAB PO SCH (09:37)
--- NOTE | 2022-12-16 09:42 | CDI ---
Documentation Clarification Form Date: 12/16/2022 09:19 AM From: Chanelle Prado RN CCDS Phone: [phone] Admit Date: 12/14/2022 11:50:00 AM Patient Name: Dgao Lyman Visit Number: [id number] Discharge Date: ATTENTION: The Clinical Documentation Specialists (CDI) and [facility] Coding Staff appreciate your assistance in clarifying documentation. Please respond to the clarification below the line at the bottom and electronically sign. The CDI & [facility] Coding staff will review the response and follow-up if needed. Please note: Queries are made part of the Legal Health Record. If you have any questions, please contact the author of this message via ITS. Dr. Nam Serrato UTI, in setting of indwelling Pena, is documented 12/14, H&P and 12/15 Medicine note. Additional clarification regarding the etiology of the UTI is requested. History/Risk Factors: 82-year-old male presents to the ED for generalized weakness over the past three to four days. Medical History: A.fib on Eliquis, urinary retention status post indwelling pena catheter, DM2, HTN, HLD and Bladder cancer. 12/14, H&P. Clinical Indicators: Urinalysis: 12/13 Protein 1+, Blood Moderate, Leukocyte esterase Large, RBC 10, Wbc >182; Urine Wbc Clumps Many, Urine Bacteria rare and Hyaline casts 1. Urine culture:12/14 Gram negative bacilli Lab results:12/13 Wbc 12.7; Neutrophils 11.3 Treatment: 12/14 Ceftriaxone IVPB x 1; 12/15 Ceftriaxone IVPB Q24H Please clarify the etiology of the UTI, if known: [ x ] UTI secondary to Pena catheter [ ] UTI not related to catheter [ ] Other condition, please specify [ ] Unable to determine (Template Last Revised: July 2020) MTDD
--- NOTE | 2022-12-16 10:36 | P.PN ---
Subjective Progress Note Date: 12/16/22 The patient is in the hospital for generalized weakness. He has a catheter- induced urine infection as he is been in chronic retention. He is feeling much better. He was scheduled to have a bladder tumor resection but this was held a few weeks back due to cardiac reasons. He is feeling better and is cleared for surgery albeit an increased risk Objective - Vital Signs Vital signs: Vital Signs Temp 98 F 12/16/22 07:05 Pulse 89 12/16/22 07:05 Resp 20 12/16/22 07:05 BP 168/84 12/16/22 07:05 Pulse Ox 97 12/16/22 07:05 FiO2 Intake & Output 12/15/22 12/16/22 12/16/22 18:59 06:59 18:59 Intake Total 900 Output Total 625 3150 500 Balance 275 -3150 -500 Intake: Intake, IV Titration 900 Amount Sodium Chloride 0.9% 1, 900 000 ml @ 75 mls/hr IV . [id number] [facility] Rx#:[id number] Output: Urine 625 3150 500 Other: Voiding Method Indwelling Catheter Indwelling Catheter Indwelling Catheter # Bowel Movements 5 1 - Labs CBC & Chem 7: 12/16/22 06:02 12/16/22 06:02 Labs: Abnormal Lab Results - Last 24 Hours (Table) 12/15/22 12/16/22 12/16/22 Range/Units 05:18 06:02 06:02 RBC 2.96 L (4.30-5.90) m/uL Hgb 9.0 L (13.0-17.5) gm/dL Hct 26.3 L (39.0-53.0) % Potassium 3.3 L (3.5-5.1) mmol/L Chloride 109 H (98-107) mmol/L Carbon Dioxide 19 L (22-30) mmol/L BUN 42 H (9-20) mg/dL Creatinine 3.35 H (0.66-1.25) mg/dL Calcium 7.8 L (8.4-10.2) mg/dL Iron 27 L (65-175) UG/DL TIBC 169 L (228-460) UG/DL Transferrin 121.0 L (204.0-354.0) mg/dL Microbiology - Last 24 Hours (Table) 12/14/22 00:55 Blood Culture - Preliminary Blood 12/14/22 00:40 Blood Culture - Preliminary Blood 12/14/22 00:25 Urine Culture - Preliminary Urine,Catheterized Gram Neg Bacilli Assessment and Plan Assessment: Impression: Generalized weakness. Multiple medical problems. Urinary tract infection clearing. Superficial bladder cancer Recommendations: 10 a daily I will place him on the schedule for Wednesday to remove the bladder tumor which will give him another 48 hours of antibiotics and we'll be only get the urine culture back.
--- NOTE | 2022-12-16 14:22 | P.PN ---
Subjective Patient is seen for follow-up for acute kidney injury and top of chronic kidney disease. Renal function has improved slightly with IV hydration. Patient also has obstructive uropathy and has an indwelling Garcia catheter. Repeat ultrasound continues to show bilateral hydronephrosis. Patient is being followed by urology. No complaints today. Scheduled for urology: Intervention for resection of bladder tumor on 10/18/2022 Objective - Vital Signs Vital signs: Vital Signs Temp 98 F 12/16/22 11:16 Pulse 88 12/16/22 11:16 Resp 18 12/16/22 11:16 BP 148/81 12/16/22 11:16 Pulse Ox 97 12/16/22 11:16 FiO2 Intake & Output 12/15/22 12/16/22 12/16/22 18:59 06:59 18:59 Intake Total 900 Output Total 625 3150 500 Balance 275 -3150 -500 Intake: Intake, IV Titration 900 Amount Sodium Chloride 0.9% 1, 900 000 ml @ 75 mls/hr IV . [id number] [facility] Rx#:[id number] Output: Urine 625 3150 500 Other: Voiding Method Indwelling Catheter Indwelling Catheter Indwelling Catheter # Bowel Movements 5 1 - Exam Patient is awake, comfortable, alert oriented 3. No acute distress Examination of the heart S1 and S2 Examination of the lungs bilateral breath sounds are heard Abdomen is soft nontender Examination lower extremities shows no significant edema [employer] exam grossly intact - Labs CBC & Chem 7: 12/16/22 06:02 12/16/22 06:02 Labs: Abnormal Lab Results - Last 24 Hours (Table) 12/15/22 12/16/22 12/16/22 Range/Units 05:18 06:02 06:02 RBC 2.96 L (4.30-5.90) m/uL Hgb 9.0 L (13.0-17.5) gm/dL Hct 26.3 L (39.0-53.0) % Potassium 3.3 L (3.5-5.1) mmol/L Chloride 109 H (98-107) mmol/L Carbon Dioxide 19 L (22-30) mmol/L BUN 42 H (9-20) mg/dL Creatinine 3.35 H (0.66-1.25) mg/dL Calcium 7.8 L (8.4-10.2) mg/dL Iron 27 L (65-175) UG/DL TIBC 169 L (228-460) UG/DL Transferrin 121.0 L (204.0-354.0) mg/dL Microbiology - Last 24 Hours (Table) 12/14/22 00:55 Blood Culture - Preliminary Blood 12/14/22 00:40 Blood Culture - Preliminary Blood 12/14/22 00:25 Urine Culture - Final Urine,Catheterized Pseudomonas aeruginosa Assessment and Plan Assessment: 1. Acute kidney injury obstructive uropathy with possible prerenal component. Maintained on IV hydration and with indwelling Garcia catheter. Repeat ul trasound continues to show bilateral hydronephrosis. Patient is being followed by urology 2. Bladder cancer being followed by urology 3. BPH being followed by urology 4. Mild non-gap metabolic acidosis 5. Pyuria rule out UTI Plan: Continue with IV fluids Agree with plans for intervention for bladder tumor.
--- NOTE | 2022-12-16 14:30 | P.PN ---
Subjective Progress Note Date: 12/16/22 Patient is a 82-year-old male with a PMH of A. fib on Eliquis, urinary retention status post indwelling Pena catheter, acute kidney injury, type II DM, hypertension, hyperlipidemia, who presents to the emergency room with complaints of generalized weakness and inability to ambulate. The patient reports that he has been feeling more weak than usual over the past 3-4 days. He reports being unable to stand up off a chair and that he is unable to participate in his ADLs as a result. CT brain in the emergency room was unremarkable. Chest x-ray was also unremarkable. EKG revealed A. fib at 77 bpm. Laboratory evaluation was remarkable for leukocytosis of 12.7, and on 8.1, creatinine 3.86 (up from 2.2 from 11/22), with an abnormal UA. 12/15 Patient was seen and examined. No acute events overnight. He reports no complaints today. CBC shows hemoglobin of 8.7. BMP shows chloride of 109, bicarb of 19, BUN of 50, creatinine of 3.68, calcium of 7.5. Renal ultrasound shows severe left-sided hydronephrosis with mild to moderate right-sided hydronephrosis. 12/16 Patient was seen and examined. No acute events overnight. Patient reports feeling well. He has no complaints. UCx + pseudomonas mendiola sensitive. CBC shows Hg 9. BMP shows K 3.3, Cl 109, bicarb 19, BUN 42, Cr 3.35, Ca 7.8. Vital signs: BP 144/89. HR 80. T 97.9F. 97% on RA. RR 18. General: non toxic, no distress, appears at stated age, normal weight Derm: no unusual rashes/lesions, warm Head: atraumatic, normocephalic, symmetric Eyes: EOMI, no lid lag, anicteric sclera ENT: Nose and ears atraumatic Neck: No cervical lymphadenopathy, trachea midline, supple Mouth: no lip lesion, mucus membranes moist Cardiovascular: S1S2 reg, no murmur, no edema Lungs: CTA bilateral, no rhonchi, no rales, no accessory muscle use Abdominal: soft, nontender to palpation, no guarding, + pena catheter Ext: no gross muscle atrophy, no contractures, Neuro: no gross focal neuro deficits Psych: Alert, oriented, appropriate affect UTI, in setting of indwelling Pena Acute kidney injury on chronic kidney disease Hypokalemia Normocytic anemia Hyperchloremic metabolic acidosis Hypocalcemia Chronic conditions: A. fib, hypertension, hyperlipidemia, type II Based on my assessment of this patient, this patient meets a high complexity level of care. Patient has an acute diagnosis of MARION on CKD due to obstructive uropathy complicated with UTI that poses a threat to life or bodily function. UTI, in setting of indwelling Pena: Continue Rocephin 1g IV QD. UCx + pseudomonas mendiola sensitive. BCx prelim negative. Acute kidney injury on chronic kidney disease: Cr 3.35. Nephrology recommends IV hydration. Urology recommends possible TURP on Wednesday. Hypokalemia: Replace orally and repeat levels tomorrow. Normocytic anemia: Hg 9. Stable. Transfuse if Hg < 7. 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 Hyperchloremic metabolic acidosis Hypocalcemia I have reviewed the following absence management consultant notes: Nephrology and Urology note reviewed. I have reviewed the results of the following tests: CBC, BMP, UCx, BCx. I have ordered the following tests: CBC and BMP. I have discussed the care of this patient with the following independent historian: Case discussed with RN. I have independently interpreted the following test below: I have discussed the management of this patient with the following physician: Objective - Vital Signs Vital signs: Vital Signs Temp 98 F 12/16/22 11:16 Pulse 88 12/16/22 11:16 Resp 18 12/16/22 11:16 BP 148/81 12/16/22 11:16 Pulse Ox 97 12/16/22 11:16 FiO2 Intake & Output 12/15/22 12/16/22 12/16/22 18:59 06:59 18:59 Intake Total 900 Output Total 625 3150 500 Balance 275 -3150 -500 Intake: Intake, IV Titration 900 Amount Sodium Chloride 0.9% 1, 900 000 ml @ 75 mls/hr IV . [id number] [facility] Rx#:[id number] Output: Urine 625 3150 500 Other: Voiding Method Indwelling Catheter Indwelling Catheter Indwelling Catheter # Bowel Movements 5 1 - Labs CBC & Chem 7: 12/16/22 06:02 12/16/22 06:02 Labs: Abnormal Lab Results - Last 24 Hours (Table) 12/15/22 12/16/22 12/16/22 Range/Units 05:18 06:02 06:02 RBC 2.96 L (4.30-5.90) m/uL Hgb 9.0 L (13.0-17.5) gm/dL Hct 26.3 L (39.0-53.0) % Potassium 3.3 L (3.5-5.1) mmol/L Chloride 109 H (98-107) mmol/L Carbon Dioxide 19 L (22-30) mmol/L BUN 42 H (9-20) mg/dL Creatinine 3.35 H (0.66-1.25) mg/dL Calcium 7.8 L (8.4-10.2) mg/dL Iron 27 L (65-175) UG/DL TIBC 169 L (228-460) UG/DL Transferrin 121.0 L (204.0-354.0) mg/dL Microbiology - Last 24 Hours (Table) 12/14/22 00:55 Blood Culture - Preliminary Blood 12/14/22 00:40 Blood Culture - Preliminary Blood 12/14/22 00:25 Urine Culture - Final Urine,Catheterized Pseudomonas aeruginosa
[2022-12-16] MEDS: PRAVASTATIN SODIUM 80 MG TAB PO SCH (21:01)
[2022-12-17 06:30] LABS: African American GFR (CKD) 20 (>60 ml/min/1.73 sqM); Anion Gap 8 mmol/L; Blood Urea Nitrogen 35 mg/dL (9-20); Calcium 8.1 mg/dL (8.4-10.2); Carbon Dioxide 19 mmol/L (22-30); Chloride 111 mmol/L (98-107); Glucose 80 mg/dL (74-99); Non-African American GFR(CKD) 17 (>60 ml/min/1.73 sqM); Potassium 3.6 mmol/L (3.5-5.1); Sodium 138 mmol/L (137-145)
[2022-12-17] MEDS: ENOXAPARIN 30 MG/0.3 ML SYRINGE SQ SCH (07:05)
--- NOTE | 2022-12-17 07:34 | P.PN ---
Subjective Progress Note Date: 12/17/22 The patient is in the hospital with a urinary tract infection and weakness. He is recuperating. He feels better. He has a history of bladder cancer which she is scheduled have removed tomorrow Objective - Vital Signs Vital signs: Vital Signs Temp 98 F 12/17/22 07:04 Pulse 84 12/17/22 07:04 Resp 17 12/17/22 07:04 BP 167/94 12/17/22 07:04 Pulse Ox 96 12/17/22 07:04 FiO2 Intake & Output 12/16/22 12/17/22 12/17/22 18:59 06:59 18:59 Output Total 1400 1750 Balance -1400 -1750 Output: Urine 1400 1750 Other: Voiding Method Indwelling Catheter Urinal # Bowel Movements 1 - Labs CBC & Chem 7: 12/16/22 06:02 12/17/22 05:32 Labs: Abnormal Lab Results - Last 24 Hours (Table) 12/17/22 Range/Units 05:32 Chloride 111 H (98-107) mmol/L Carbon Dioxide 19 L (22-30) mmol/L BUN 35 H (9-20) mg/dL Creatinine 3.21 H (0.66-1.25) mg/dL Calcium 8.1 L (8.4-10.2) mg/dL Microbiology - Last 24 Hours (Table) 12/14/22 00:55 Blood Culture - Preliminary Blood 12/14/22 00:40 Blood Culture - Preliminary Blood 12/14/22 00:25 Urine Culture - Final Urine,Catheterized Pseudomonas aeruginosa Assessment and Plan Assessment: Impression: Urinary tract infection with secondary weakness resolving. Bladder cancer. Recommendations: The patient is on culture specific antibiotics for his urine infection. He set up for a transurethral resection of his bladder tumor tomorrow.
[2022-12-17] MEDS: CEFEPIME 1 GM in SODIUM CHLORIDE 0.9% 50 ML IVPB SCH ×2 (10:12→21:03)
[2022-12-17] MEDS: TAMSULOSIN 0.4 MG CAP.ER.24H PO SCH (10:13)
[2022-12-17] MEDS: FAMOTIDINE 20 MG TAB PO SCH (10:13)
[2022-12-17] MEDS: SODIUM CHLORIDE 0.9% 1,000 ML IV SCH ×2 (10:22→22:51)
--- NOTE | 2022-12-17 14:16 | P.PN ---
Subjective Progress Note Date: 12/17/22 Patient is a 82-year-old male with a PMH of A. fib on Eliquis, urinary retention status post indwelling Pena catheter, acute kidney injury, type II DM, hypertension, hyperlipidemia, who presents to the emergency room with complaints of generalized weakness and inability to ambulate. The patient reports that he has been feeling more weak than usual over the past 3-4 days. He reports being unable to stand up off a chair and that he is unable to participate in his ADLs as a result. CT brain in the emergency room was unremarkable. Chest x-ray was also unremarkable. EKG revealed A. fib at 77 bpm. Laboratory evaluation was remarkable for leukocytosis of 12.7, and on ., creatinine 3.86 (up from 2.2 from 11/22), with an abnormal UA. 12/15 Patient was seen and examined. No acute events overnight. He reports no complaints today. CBC shows hemoglobin of 8.7. BMP shows chloride of 109, bicarb of 19, BUN of 50, creatinine of 3.68, calcium of 7.5. Renal ultrasound shows severe left-sided hydronephrosis with mild to moderate right-sided hydronephrosis. 12/16 Patient was seen and examined. No acute events overnight. Patient reports feeling well. He has no complaints. UCx + pseudomonas mendiola sensitive. CBC shows Hg 9. BMP shows K 3.3, Cl 109, bicarb 19, BUN 42, Cr 3.35, Ca 7.8. 12/17 Patient was seen and examined. He reports no complaints. Pena catheter switched on 12/13. Antibiotics switched from Rocephin to Cefepime. Plans for TURP on Wednesday. BMP shows Cl 111, bicarb 19, BUN 35, Cr 3.21, Ca 8.1. General: non toxic, no distress, appears at stated age, normal weight Derm: no unusual rashes/lesions, warm Head: atraumatic, normocephalic, symmetric Eyes: EOMI, no lid lag, anicteric sclera ENT: Nose and ears atraumatic Neck: No cervical lymphadenopathy, trachea midline, supple Cardiovascular: S1S2 reg, no murmur, no edema Lungs: CTA bilateral, no rhonchi, no rales, no accessory muscle use Abdominal: soft, nontender to palpation, no guarding, + pena catheter Ext: no gross muscle atrophy, no contractures, Neuro: no gross focal neuro deficits Psych: Alert, oriented, appropriate affect UTI, in setting of indwelling Pena Acute kidney injury on chronic kidney disease Normocytic anemia Hyperchloremic metabolic acidosis Hypocalcemia Chronic conditions: A. fib, hypertension, hyperlipidemia, type II Based on my assessment of this patient, this patient meets a high complexity level of care. Patient has an acute diagnosis of MARION on CKD due to obstructive uropathy complicated with UTI that poses a threat to life or bodily function. UTI, in setting of indwelling Pena: Continue Cefepime 1g IV TID. UCx + pseudomonas mendiola sensitive. BCx prelim negative. Acute kidney injury on chronic kidney disease: Cr 3.21. Nephrology recommends IV hydration. Urology recommends possible TURP on Wednesday. Normocytic anemia: Hg 9. Stable. Transfuse if Hg < 7. 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 Hyperchloremic metabolic acidosis Hypocalcemia I have reviewed the following training consultant notes: Urology note reviewed. I have reviewed the results of the following tests: BMP, BCx. I have ordered the following tests: CBC and BMP. I have discussed the care of this patient with the following independent historian: Case discussed with RN. I have independently interpreted the following test below: I have discussed the management of this patient with the following physician: Objective - Vital Signs Vital signs: Vital Signs Temp 97.9 F 12/17/22 11:24 Pulse 69 12/17/22 11:24 Resp 17 12/17/22 11:24 BP 160/87 12/17/22 11:24 Pulse Ox 95 12/17/22 11:24 FiO2 21 12/17/22 08:03 Intake & Output 12/16/22 12/17/22 12/17/22 18:59 06:59 18:59 Output Total 1400 1750 1200 Balance -1400 -1750 -1200 Output: Urine 1400 1750 1200 Other: Voiding Method Indwelling Catheter Urinal Indwelling Catheter # Bowel Movements 1 - Labs CBC & Chem 7: 12/16/22 06:02 12/17/22 05:32 Labs: Abnormal Lab Results - Last 24 Hours (Table) 12/17/22 Range/Units 05:32 Chloride 111 H (98-107) mmol/L Carbon Dioxide 19 L (22-30) mmol/L BUN 35 H (9-20) mg/dL Creatinine 3.21 H (0.66-1.25) mg/dL Calcium 8.1 L (8.4-10.2) mg/dL Microbiology - Last 24 Hours (Table) 12/14/22 00:55 Blood Culture - Preliminary Blood 12/14/22 00:40 Blood Culture - Preliminary Blood 12/14/22 00:25 Urine Culture - Final Urine,Catheterized Pseudomonas aeruginosa
[2022-12-17 14:37] VITALS: BMI 24.4
[2022-12-17] MEDS: PRAVASTATIN SODIUM 80 MG TAB PO SCH (21:04)
[2022-12-18] MEDS: TAMSULOSIN 0.4 MG CAP.ER.24H PO SCH (09:08)
[2022-12-18] MEDS: CEFEPIME 1 GM in SODIUM CHLORIDE 0.9% 50 ML IVPB SCH ×2 (09:08→22:00)
[2022-12-18] MEDS: FAMOTIDINE 20 MG TAB PO SCH (09:08)
[2022-12-18] MEDS ORDERED: IV FLUID CONTINUATION 1,000 ML IV ONE (11:19)
[2022-12-18] MEDS ORDERED: ONDANSETRON 4 MG/2 ML VIAL IVP ONE (11:40)
[2022-12-18] MEDS ORDERED: DEXAMETHASONE SOD PHOSPHATE 4 MG/ML 1 ML VIAL IVP ONE (11:41)
[2022-12-18 11:50] LABS: African American GFR (CKD) 20 (>60 ml/min/1.73 sqM); Anion Gap 8 mmol/L; Blood Urea Nitrogen 33 mg/dL (9-20); Calcium 8.3 mg/dL (8.4-10.2); Carbon Dioxide 22 mmol/L (22-30); Chloride 109 mmol/L (98-107); Glucose 90 mg/dL (74-99); Non-African American GFR(CKD) 18 (>60 ml/min/1.73 sqM); Potassium 3.5 mmol/L (3.5-5.1); Sodium 139 mmol/L (137-145)
[2022-12-18] MEDS ORDERED: LIDOCAINE 2% INJ 20 MG/ML (2 ML VIAL) ONE (12:14)
[2022-12-18] MEDS ORDERED: SUCCINYLCHOLINE CHLORIDE 200 MG/10 ML VIAL IV ONE (12:14)
[2022-12-18] MEDS ORDERED: PHENYLEPHRINE-0.9% NACL SYG 1,000 MCG/10 ML SYRINGE ONE (12:14)
[2022-12-18] MEDS ORDERED: PROPOFOL 10 MG/ML 20 ML VIAL IV ONE (12:14)
[2022-12-18] MEDS ORDERED: ESMOLOL 100 MG/10 ML VIAL ONE (12:14)
[2022-12-18] MEDS: SODIUM CHLORIDE 0.9% 1,000 ML IV SCH ×2 (12:16→14:09)
--- NOTE | 2022-12-18 13:02 | P.OP ---
Date of Procedure: 12/18/22 Preoperative Diagnosis: Bladder cancer Postoperative Diagnosis: Same Procedure(s) Performed: TUR BT, medium (2 cm) Anesthesia: ROLANDO Surgeon: Betito Bravo Estimated Blood Loss (ml): 25 Pathology: other (Bladder tumor) Indications for Procedure: The patient is 82. He presented to me in urine retention. The evaluation led to cystoscopy identified a previous TURP with a relatively open prostate other than some apical tissue. The bladder wall was severely trabeculated. There is a bladder tumor on the left bladder wall at the bladder neck. 2 cm in diameter. He has had significant medical problems and is finally been cleared for surgical procedure Description of Procedure: The patient is brought to the operating suite. He's given a general endotracheal anesthesia. He is prepped and draped sterilely. Under direct vision the 25-Kittitian sheath Foroblique lens and direct vision obturator was in troduced in the bladder. With the [employer] resectoscope I first irrigate the bladder and prosthetic fossa thoroughly. The prostate shows previous TURP with bladder neck and mid prostatic gland wide open. There is some apical obstructing tissue. The bladder mooney severely trabeculated with catheter edema. There are multiple cellules. On the left bladder neck and bladder wall extending towards the trigone there is a sessile appearing broad-based tumor. It is resected from lateral to medial. The specimen is sent to pathology. I then resect some edematous-looking tissue on the trigone that is included with the specimen. I controlled bleeding with electrocautery. There is no remaining tumor in the bladder. The resectoscope was removed. An 18-Kittitian coud-tip catheter is introduced the bladder with clear to very light pink urine return. The patient tolerated procedure well and was returned recovery room good condition loss is approximately 25 mL
--- NOTE | 2022-12-18 16:52 | P.PN ---
Subjective Progress Note Date: 12/18/22 Patient is a 82-year-old male with a PMH of A. fib on Eliquis, urinary retention status post indwelling Pena catheter, acute kidney injury, type II DM, hypertension, hyperlipidemia, who presents to the emergency room with complaints of generalized weakness and inability to ambulate. The patient reports that he has been feeling more weak than usual over the past 3-4 days. He reports being unable to stand up off a chair and that he is unable to participate in his ADLs as a result. CT brain in the emergency room was unremarkable. Chest x-ray was also unremarkable. EKG revealed A. fib at 77 bpm. Laboratory evaluation was remarkable for leukocytosis of 12.7, and on .1, creatinine 3.86 (up from 2.2 from 11/22), with an abnormal UA. 12/15 Patient was seen and examined. No acute events overnight. He reports no complaints today. CBC shows hemoglobin of 8.7. BMP shows chloride of 109, bicarb of 19, BUN of 50, creatinine of 3.68, calcium of 7.5. Renal ultrasound shows severe left-sided hydronephrosis with mild to moderate right-sided hydronephrosis. 12/16 Patient was seen and examined. No acute events overnight. Patient reports feeling well. He has no complaints. UCx + pseudomonas mendiola sensitive. CBC shows Hg 9. BMP shows K 3.3, Cl 109, bicarb 19, BUN 42, Cr 3.35, Ca 7.8. 12/17 Patient was seen and examined. He reports no complaints. Pena catheter switched on 12/13. Antibiotics switched from Rocephin to Cefepime. Plans for TURP on Wednesday. BMP shows Cl 111, bicarb 19, BUN 35, Cr 3.21, Ca 8.1. 12/18 Patient was seen and examined. Multiple family members at bedside. Patient appears to be confused and anxious this morning which I have not noticed since 12/15. RN reports intermittent confusion usually at night. Plans for TURP today. BMP shows Cl 109, BUN 33, Cr 3.12, Ca 8.3. General: non toxic, no distress, appears at stated age, normal weight Derm: no unusual rashes/lesions, warm Head: atraumatic, normocephalic, symmetric Eyes: EOMI, no lid lag, anicteric sclera ENT: Nose and ears atraumatic Neck: No cervical lymphadenopathy, trachea midline, supple Cardiovascular: S1S2 reg, no murmur, no edema Lungs: CTA bilateral, no rhonchi, no rales, no accessory muscle use Abdominal: soft, nontender to palpation, no guarding, + pena catheter Ext: no gross muscle atrophy, no contractures, Neuro: no gross focal neuro deficits Psych: Alert, oriented x 1-2. Slow to respond. Delirium UTI, in setting of indwelling Pena Acute kidney injury on chronic kidney disease Normocytic anemia Hyperchloremic metabolic acidosis Hypocalcemia Chronic conditions: A. fib, hypertension, hyperlipidemia, type II Based on my assessment of this patient, this patient meets a high complexity level of care. Patient has an acute diagnosis of MARION on CKD due to obstructive uropathy complicated with UTI that poses a threat to life or bodily function. Delirium: Avoid sedative medications. Frequent redirection. CT head to rule out intracranial process. UTI, in setting of indwelling Pena: Continue Cefepime 1g IV TID. UCx + pseudomonas mendiola sensitive. BCx prelim negative. Acute kidney injury on chronic kidney disease: Cr 3.12. Nephrology recommends IV hydration. Urology recommends TURP today. Hyperchloremic metabolic acidosis Hypocalcemia I have reviewed the following business analyst consultant notes: I have reviewed the results of the following tests: BMP, BCx. I have ordered the following tests: CBC and BMP. CT brain. I have discussed the care of this patient with the following independent historian: Case discussed with RN. I have independently interpreted the following test below: I have discussed the management of this patient with the following physician: Case discussed with Dr. Paz at bedside. Plans for TURP today. Objective - Vital Signs Vital signs: Vital Signs Temp 98.0 F 12/18/22 13:08 Pulse 99 12/18/22 13:50 Resp 16 12/18/22 13:50 BP 159/92 12/18/22 13:50 Pulse Ox 93 L 12/18/22 13:50 FiO2 21 12/18/22 07:42 Intake & Output 12/17/22 12/18/22 12/18/22 18:59 06:59 18:59 Intake Total 0 400 Output Total 1700 1100 1402 Balance -1700 -1100 -1002 Weight 81.647 kg 81.647 kg Intake: IV 400 Oral 0 Output: Urine 1700 1100 1400 Estimated Blood Loss 2 Other: Voiding Method Indwelling Catheter Indwelling Catheter Indwelling Catheter # Voids 1 - Labs CBC & Chem 7: 12/16/22 06:02 12/18/22 10:54 Labs: Abnormal Lab Results - Last 24 Hours (Table) 12/18/22 Range/Units 10:54 Chloride 109 H (98-107) mmol/L BUN 33 H (9-20) mg/dL Creatinine 3.12 H (0.66-1.25) mg/dL Calcium 8.3 L (8.4-10.2) mg/dL Microbiology - Last 24 Hours (Table) 12/14/22 00:55 Blood Culture - Preliminary Blood 12/14/22 00:40 Blood Culture - Preliminary Blood
--- NOTE | 2022-12-18 17:39 | CT ---
EXAMINATION TYPE: CT brain wo con CT DLP: 1090.4 mGycm, Automated exposure control for dose reduction was used. DATE OF EXAM: 12/18/2022 5:11 PM COMPARISON: 12/14/2022. CLINICAL INDICATION:Male, 82 years old with history of , confusion TECHNIQUE: Brain: Axial CT images of the brain were obtained with coronal and sagittal reformats created and rev iewed. Contrast used: None. Oral contrast used: None. FINDINGS: Brain: Extra-axial spaces: No abnormal extra-axial fluid collections. Ventricular system: Dilatation in proportion to cerebral atrophy., cavum septum pellucidum. Cerebral parenchyma: Cerebral atrophy. No acute intraparenchymal hemorrhage or mass effect. The shetty -white junction is well differentiated. Scattered hypoattenuating areas are seen within the white mat ter. Cerebellum: Unremarkable. Mass effect: No evidence of midline shift. Intracranial vasculature: Atherosclerotic calcifications of the intracranial vessels. Soft tissues: Normal. Calvarium/osseous structures: No depressed skull fracture. Paranasal sinuses and mastoid air cells: Mild scattered paranasal sinus disease. Visualized orbits: Orbital contents are intact. IMPRESSION: No acute intracranial process. 2. Nonspecific white matter changes, likely secondary to chronic small vessel ischemic disease.
[2022-12-18] MEDS: PRAVASTATIN SODIUM 80 MG TAB PO SCH (22:00)
--- NOTE | 2022-12-19 01:21 | P.PN ---
Subjective Patient is seen for follow-up for acute kidney injury and top of chronic kidney disease. Renal function has improved slightly with IV hydration. Patient also has obstructive uropathy and has an indwelling Garcia catheter. Repeat ultrasound continues to show bilateral hydronephrosis. Patient is being followed by urology. No complaints today. Scheduled for urology: Intervention for resection of bladder tumor on 10/18/2022 Creatinine at 3.2 today. Maintained on saline at 75cc/hr Objective - Vital Signs Vital signs: Vital Signs Temp 98.2 F 12/18/22 19:19 Pulse 91 12/18/22 19:19 Resp 14 12/18/22 19:19 BP 157/84 12/18/22 19:19 Pulse Ox 96 12/18/22 19:19 FiO2 21 12/18/22 07:42 Intake & Output 12/18/22 12/18/22 12/19/22 06:59 18:59 06:59 Intake Total 0 1400 Output Total 1100 1402 650 Balance -1100 -2 -650 Weight 81.647 kg Intake: IV 400 Intake, IV Titration 1000 Amount Cefepime 1 gm In Sodium 100 Chloride 0.9% 50 ml @ 12. 5 mls/hr IVPB Q12HR [facility] Rx#:[id number] Sodium Chloride 0.9% 1, 900 000 ml @ 75 mls/hr IV . [id number] [facility] Rx#:[id number] Oral 0 Output: Urine 1100 1400 650 Estimated Blood Loss 2 Other: Voiding Method Indwelling Catheter Indwelling Catheter Indwelling Catheter # Voids 1 - Exam Patient is awake, comfortable, alert oriented 3. No acute distress Examination of the heart S1 and S2 Examination of the lungs bilateral breath sounds are heard Abdomen is soft nontender Examination lower extremities shows no significant edema [employer] exam grossly intact - Labs CBC & Chem 7: 12/16/22 06:02 12/18/22 10:54 Labs: Abnormal Lab Results - Last 24 Hours (Table) 12/18/22 Range/Units 10:54 Chloride 109 H (98-107) mmol/L BUN 33 H (9-20) mg/dL Creatinine 3.12 H (0.66-1.25) mg/dL Calcium 8.3 L (8.4-10.2) mg/dL Assessment and Plan Assessment: 1. Acute kidney injury obstructive uropathy with possible prerenal component. Maintained on IV hydration and with indwelling Garcia catheter. Repeat ultrasound continues to show bilateral hydronephrosis. Patient is being followed by urology. Scheduled for cystoscopy on 10/18/22 2. Bladder cancer being followed by urology 3. BPH being followed by urology 4. Mild non-gap metabolic acidosis 5. Pyuria rule out UTI Plan: Continue with IV fluids Agree with plans for intervention for bladder tumor.
--- NOTE | 2022-12-19 01:25 | P.PN ---
Subjective Patient is seen for follow-up for acute kidney injury and top of chronic kidney disease. Renal function has improved slightly with IV hydration. Patient also has obstructive uropathy and has an indwelling Garcia catheter. Repeat ultrasound continues to show bilateral hydronephrosis. Patient is being followed by urology. Family is present at bedside. Patient has been confused today. Creatinine at 3.1 today. Maintained on IV hydration. Going for Cystoscopy later today. Objective - Vital Signs Vital signs: Vital Signs Temp 98.2 F 12/18/22 19:19 Pulse 91 12/18/22 19:19 Resp 14 12/18/22 19:19 BP 157/84 12/18/22 19:19 Pulse Ox 96 12/18/22 19:19 FiO2 21 12/18/22 07:42 Intake & Output 12/18/22 12/18/22 12/19/22 06:59 18:59 06:59 Intake Total 0 1400 Output Total 1100 1402 650 Balance -1100 -2 -650 Weight 81.647 kg Intake: IV 400 Intake, IV Titration 1000 Amount Cefepime 1 gm In Sodium 100 Chloride 0.9% 50 ml @ 12. 5 mls/hr IVPB Q12HR [facility] Rx#:[id number] Sodium Chloride 0.9% 1, 900 000 ml @ 75 mls/hr IV . [id number] [facility] Rx#:[id number] Oral 0 Output: Urine 1100 1400 650 Estimated Blood Loss 2 Other: Voiding Method Indwelling Catheter Indwelling Catheter Indwelling Catheter # Voids 1 - Exam Patient is awake, comfortable, answers simple questions but was confused earlier. No acute distress Examination of the heart S1 and S2 Examination of the lungs bilateral breath sounds are heard Abdomen is soft nontender Examination lower extremities shows no significant edema [employer] exam grossly intact - Labs CBC & Chem 7: 12/16/22 06:02 12/18/22 10:54 Labs: Abnormal Lab Results - Last 24 Hours (Table) 12/18/22 Range/Units 10:54 Chloride 109 H (98-107) mmol/L BUN 33 H (9-20) mg/dL Creatinine 3.12 H (0.66-1.25) mg/dL Calcium 8.3 L (8.4-10.2) mg/dL Assessment and Plan Assessment: 1. Acute kidney injury obstructive uropathy with possible prerenal component. Maintained on IV hydration and with indwelling Garcia catheter. Repeat ultrasound continues to show bilateral hydronephrosis. Patient is being followed by urology. Scheduled for cystoscopy today. 2. Bladder cancer being followed by urology 3. BPH being followed by urology 4. Mild non-gap metabolic acidosis 5. UTI with urine culture growing proteus Plan: Continue with IV fluids Consider CT scan brain Recommend to proceed with cystoscopy today.
[2022-12-19 06:44] LABS: HCT 26.8 % (39.0-53.0); HGB 8.9 gm/dL (13.0-17.5); MCH 29.4 pg (25.0-35.0); MCHC 33.2 g/dL (31.0-37.0); MCV 88.6 fL (80.0-100.0); Mean Platelet Volume 8.4; Platelet Count 193 k/uL (150-450); RBC 3.02 m/uL (4.30-5.90); RDW 13.6 % (11.5-15.5); WBC 8.3 k/uL (3.8-10.6)
[2022-12-19 06:59] LABS: African American GFR (CKD) 20 (>60 ml/min/1.73 sqM); Anion Gap 10 mmol/L; Blood Urea Nitrogen 37 mg/dL (9-20); Calcium 7.9 mg/dL (8.4-10.2); Carbon Dioxide 19 mmol/L (22-30); Chloride 108 mmol/L (98-107); Glucose 95 mg/dL (74-99); Non-African American GFR(CKD) 18 (>60 ml/min/1.73 sqM); Potassium 3.8 mmol/L (3.5-5.1); Sodium 137 mmol/L (137-145)
[2022-12-19] MEDS: FAMOTIDINE 20 MG TAB PO SCH (08:20)
[2022-12-19] MEDS: ACETAMINOPHEN TAB 325 MG TAB PO PRN (08:20)
[2022-12-19] MEDS: TAMSULOSIN 0.4 MG CAP.ER.24H PO SCH (08:20)
[2022-12-19] MEDS: CEFEPIME 1 GM in SODIUM CHLORIDE 0.9% 50 ML IVPB SCH ×2 (08:21→20:59)
--- NOTE | 2022-12-19 08:40 | P.PN ---
Subjective Patient is seen in follow-up for acute kidney injury. Renal function fairly stable. Resting in bed. Has been confused. Oral intake is poor. Sitter at bedside. Vital signs are stable. General: No acute distress. HEENT: Head exam is unremarkable. LUNGS: No audible rhonchi or wheezes. HEART: Rate and Rhythm are regular. ABDOMEN: No distention. EXTREMITITES: No edema. Objective - Vital Signs Vital signs: Vital Signs Temp 97.4 F L 12/19/22 07:48 Pulse 93 12/19/22 07:48 Resp 19 12/19/22 07:48 BP 174/99 12/19/22 07:48 Pulse Ox 98 12/19/22 07:48 FiO2 21 12/18/22 07:42 Intake & Output 12/18/22 12/19/22 12/19/22 18:59 06:59 18:59 Intake Total 1400 Output Total 1402 1250 Balance -2 -1250 Weight 81.647 kg Intake: IV 400 Intake, IV Titration 1000 Amount Cefepime 1 gm In Sodium 100 Chloride 0.9% 50 ml @ 12. 5 mls/hr IVPB Q12HR [facility] Rx#:[id number] Sodium Chloride 0.9% 1, 900 000 ml @ 75 mls/hr IV . [id number] [facility] Rx#:[id number] Output: Urine 1400 1250 Estimated Blood Loss 2 Other: Voiding Method Indwelling Catheter Indwelling Catheter - Labs CBC & Chem 7: 12/19/22 06:17 12/19/22 06:17 Labs: Abnormal Lab Results - Last 24 Hours (Table) 12/18/22 12/19/22 12/19/22 Range/Units 10:54 06:17 06:17 RBC 3.02 L (4.30-5.90) m/uL Hgb 8.9 L (13.0-17.5) gm/dL Hct 26.8 L (39.0-53.0) % Chloride 109 H 108 H (98-107) mmol/L Carbon Dioxide 19 L (22-30) mmol/L BUN 33 H 37 H (9-20) mg/dL Creatinine 3.12 H 3.12 H (0.66-1.25) mg/dL Calcium 8.3 L 7.9 L (8.4-10.2) mg/dL Assessment and Plan Plan: Assessment: 1. Acute kidney injury secondary to ATN and obstructive uropathy. Creatinine 3.86 on admission and is stable at 3.12 today. Creatinine in August 2022 was 1.1. Nonoliguric. 2. Bilateral hydronephrosis with bladder cancer status post TURBT 12/18/2022. Urology following. Has Garcia catheter. 3. Proteus UTI on antibiotics. 4. Metabolic acidosis secondary to acute kidney injury and IV fluids. 5. Benign hypertension. 6. Anemia. Iron deficiency noted. Plan: Maintain IV fluids. Add oral bicarb. Resume home dose Coreg. Add when necessary hydralazine. Continue to monitor renal function and urine output. Add IV iron.
[2022-12-19] MEDS: hydrALAZINE HCL 20 MG/ML 1 ML VIAL IVP PRN (10:14)
[2022-12-19] MEDS: SODIUM BICARBONATE TAB 650 MG TAB PO SCH ×2 (10:14→20:58)
[2022-12-19] MEDS: carvediloL 12.5 MG TAB PO SCH ×2 (10:14→18:01)
[2022-12-19] MEDS: SODIUM FERRIC GLUCONAT-SUCROSE 125 MG in SODIUM CHLORIDE 0.9% 100 ML IVPB SCH (12:20)
[2022-12-19] MEDS: SODIUM CHLORIDE 0.9% 1,000 ML IV SCH (12:22)
--- NOTE | 2022-12-19 13:23 | P.PN ---
Subjective Progress Note Date: 12/19/22 Patient is status post TURBT yesterday. He is asymptomatic. His urine is clear. Objective - Vital Signs Vital signs: Vital Signs Temp 97.4 F L 12/19/22 07:48 Pulse 93 12/19/22 07:48 Resp 19 12/19/22 07:48 BP 174/99 12/19/22 07:48 Pulse Ox 98 12/19/22 07:48 FiO2 21 12/18/22 07:42 Intake & Output 12/18/22 12/19/22 12/19/22 18:59 06:59 18:59 Intake Total 1400 Output Total 1402 1250 Balance -2 -1250 Weight 81.647 kg Intake: IV 400 Intake, IV Titration 1000 Amount Cefepime 1 gm In Sodium 100 Chloride 0.9% 50 ml @ 12. 5 mls/hr IVPB Q12HR [facility] Rx#:[id number] Sodium Chloride 0.9% 1, 900 000 ml @ 75 mls/hr IV . [id number] [facility] Rx#:[id number] Output: Urine 1400 1250 Estimated Blood Loss 2 Other: Voiding Method Indwelling Catheter Indwelling Catheter Indwelling Catheter - Labs CBC & Chem 7: 12/19/22 06:17 12/19/22 06:17 Labs: Abnormal Lab Results - Last 24 Hours (Table) 12/19/22 12/19/22 Range/Units 06:17 06:17 RBC 3.02 L (4.30-5.90) m/uL Hgb 8.9 L (13.0-17.5) gm/dL Hct 26.8 L (39.0-53.0) % Chloride 108 H (98-107) mmol/L Carbon Dioxide 19 L (22-30) mmol/L BUN 37 H (9-20) mg/dL Creatinine 3.12 H (0.66-1.25) mg/dL Calcium 7.9 L (8.4-10.2) mg/dL Microbiology - Last 24 Hours (Table) 12/14/22 00:55 Blood Culture - Final Blood 12/14/22 00:40 Blood Culture - Final Blood Assessment and Plan Assessment: Impression: Bladder cancer. 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 Multiple medical illnesses. Recommendations: The patient should continue with indwelling catheter for another week. From urologic standpoint he can be discharged home when medically stable. I'll see him in the office in one week.
--- NOTE | 2022-12-19 16:23 | P.PN ---
Subjective Progress Note Date: 12/19/22 Patient is a 82-year-old male with a PMH of A. fib on Eliquis, urinary retention status post indwelling Pena catheter, acute kidney injury, type II DM, hypertension, hyperlipidemia, who presents to the emergency room with complaints of generalized weakness and inability to ambulate. The patient reports that he has been feeling more weak than usual over the past 3-4 days. He reports being unable to stand up off a chair and that he is unable to participate in his ADLs as a result. CT brain in the emergency room was unremarkable. Chest x-ray was also unremarkable. EKG revealed A. fib at 77 bpm. Laboratory evaluation was remarkable for leukocytosis of 12.7, and on .1, creatinine 3.86 (up from 2.2 from 11/22), with an abnormal UA. 12/15 Patient was seen and examined. No acute events overnight. He reports no complaints today. CBC shows hemoglobin of 8.7. BMP shows chloride of 109, bicarb of 19, BUN of 50, creatinine of 3.68, calcium of 7.5. Renal ultrasound shows severe left-sided hydronephrosis with mild to moderate right-sided hydronephrosis. 12/16 Patient was seen and examined. No acute events overnight. Patient reports feeling well. He has no complaints. UCx + pseudomonas mendiola sensitive. CBC shows Hg 9. BMP shows K 3.3, Cl 109, bicarb 19, BUN 42, Cr 3.35, Ca 7.8. 12/17 Patient was seen and examined. He reports no complaints. Pena catheter switched on 12/13. Antibiotics switched from Rocephin to Cefepime. Plans for TURP on Wednesday. BMP shows Cl 111, bicarb 19, BUN 35, Cr 3.21, Ca 8.1. 12/18 Patient was seen and examined. Multiple family members at bedside. Patient appears to be confused and anxious this morning which I have not noticed since 12/15. RN reports intermittent confusion usually at night. Plans for TURP today. BMP shows Cl 109, BUN 33, Cr 3.12, Ca 8.3. 12/19 Patient was seen and examined. Sitter at bedside. He continues to show intermittent confusion. He is redirectable however. He underwent TURP yesterday. He reports feeling extremely weak and tired. He cannot remember that he had a procedure yesterday. CT head done yesterday negative for acute pathology. Ur ology has cleared the patient for discharge. He lives with his at home and was last seen by PT on 12/17. I would prefer that PT evaluated the patient once again prior to discharge. CBC shows Hg 8.9. BMP shows Cl 108, bicarb 19, BUN 37, Cr 3.12, Ca 7.9. General: non toxic, no distress, appears at stated age, normal weight Derm: no unusual rashes/lesions, warm Head: atraumatic, normocephalic, symmetric Eyes: EOMI, no lid lag, anicteric sclera ENT: Nose and ears atraumatic Neck: No cervical lymphadenopathy, trachea midline, supple Cardiovascular: S1S2 reg, no murmur, no edema Lungs: CTA bilateral, no rhonchi, no rales, no accessory muscle use Abdominal: soft, nontender to palpation, no guarding, + pena catheter Ext: no gross muscle atrophy, no contractures, Neuro: no gross focal neuro deficits Psych: Alert, oriented x 1-2. Slow to respond. Delirium UTI, in setting of indwelling Pena Acute kidney injury on chronic kidney disease Normocytic anemia Hyperchloremic metabolic acidosis Hypocalcemia Chronic conditions: A. fib, hypertension, hyperlipidemia, type II Based on my assessment of this patient, this patient meets a moderate complexity level of care. Patient has an acute diagnosis of MARION on CKD due to obstructive uropathy complicated with UTI that poses a threat to life or bodily function. Delirium: Avoid sedative medications. Frequent redirection. CT head negative. UTI, in setting of indwelling Pena: Continue Cefepime 1g IV TID. UCx + pseudomonas mendiola sensitive. BCx negative. Plans for Ciprofloxacin on discharge. Acute kidney injury on chronic kidney disease: Cr 3.12. Nephrology recommends IV hydration. Urology recommends TURP today. Hyperchloremic metabolic acidosis: Continue sodium bicarbonate. Hypocalcemia I have reviewed the following is consultant notes: I have reviewed the results of the following tests: BMP,CBC, brain CT I have ordered the following tests: CBC and BMP. I have discussed the care of this patient with the following independent hist orian: Case discussed with RN. I have independently interpreted the following test below: I have discussed the management of this patient with the following physician: Objective - Vital Signs Vital signs: Vital Signs Temp 97.6 F 12/19/22 12:27 Pulse 88 12/19/22 12:27 Resp 12 12/19/22 12:27 BP 127/69 12/19/22 12:27 Pulse Ox 99 12/19/22 12:27 FiO2 21 12/18/22 07:42 Intake & Output 12/18/22 12/19/22 12/19/22 18:59 06:59 18:59 Intake Total 1400 Output Total 1402 1250 Balance -2 -1250 Weight 81.647 kg Intake: IV 400 Intake, IV Titration 1000 Amount Cefepime 1 gm In Sodium 100 Chloride 0.9% 50 ml @ 12. 5 mls/hr IVPB Q12HR [facility] Rx#:[id number] Sodium Chloride 0.9% 1, 900 000 ml @ 75 mls/hr IV . [id number] [facility] Rx#:[id number] Output: Urine 1400 1250 Estimated Blood Loss 2 Other: Voiding Method Indwelling Catheter Indwelling Catheter Indwelling Catheter - Labs CBC & Chem 7: 12/19/22 06:17 12/19/22 06:17 Labs: Abnormal Lab Results - Last 24 Hours (Table) 12/19/22 12/19/22 Range/Units 06:17 06:17 RBC 3.02 L (4.30-5.90) m/uL Hgb 8.9 L (13.0-17.5) gm/dL Hct 26.8 L (39.0-53.0) % Chloride 108 H (98-107) mmol/L Carbon Dioxide 19 L (22-30) mmol/L BUN 37 H (9-20) mg/dL Creatinine 3.12 H (0.66-1.25) mg/dL Calcium 7.9 L (8.4-10.2) mg/dL Microbiology - Last 24 Hours (Table) 12/14/22 00:55 Blood Culture - Final Blood 12/14/22 00:40 Blood Culture - Final Blood
[2022-12-19] MEDS: PRAVASTATIN SODIUM 80 MG TAB PO SCH (20:58)
[2022-12-20] MEDS: SODIUM CHLORIDE 0.9% 1,000 ML IV SCH ×2 (06:40→16:39)
[2022-12-20] MEDS: FAMOTIDINE 20 MG TAB PO SCH (07:59)
[2022-12-20] MEDS: carvediloL 12.5 MG TAB PO SCH ×2 (07:59→16:52)
[2022-12-20] MEDS: SODIUM BICARBONATE TAB 650 MG TAB PO SCH ×2 (07:59→21:34)
[2022-12-20] MEDS: TAMSULOSIN 0.4 MG CAP.ER.24H PO SCH (07:59)
[2022-12-20] MEDS: CEFEPIME 1 GM in SODIUM CHLORIDE 0.9% 50 ML IVPB SCH ×2 (08:00→21:31)
[2022-12-20 10:25] LABS: HCT 30.8 % (39.0-53.0); HGB 10.2 gm/dL (13.0-17.5); MCH 29.6 pg (25.0-35.0); MCHC 33.1 g/dL (31.0-37.0); MCV 89.4 fL (80.0-100.0); Platelet Count 206 k/uL (150-450); RBC 3.44 m/uL (4.30-5.90); RDW 13.9 % (11.5-15.5); WBC 10.4 k/uL (3.8-10.6)
[2022-12-20 11:02] LABS: African American GFR (CKD) 23 (>60 ml/min/1.73 sqM); Anion Gap 11 mmol/L; Blood Urea Nitrogen 39 mg/dL (9-20); Calcium 7.9 mg/dL (8.4-10.2); Carbon Dioxide 21 mmol/L (22-30); Chloride 107 mmol/L (98-107); Glucose 121 mg/dL (74-99); Non-African American GFR(CKD) 20 (>60 ml/min/1.73 sqM); Potassium 3.6 mmol/L (3.5-5.1); Sodium 139 mmol/L (137-145)
[2022-12-20] MEDS: SODIUM FERRIC GLUCONAT-SUCROSE 125 MG in SODIUM CHLORIDE 0.9% 100 ML IVPB SCH (11:15)
--- NOTE | 2022-12-20 11:35 | P.PN ---
Subjective Patient is seen in follow-up for acute kidney injury. Renal function improving. Resting in bed. Oral intake is fair. Mentation improved. Vital signs are stable. General: No acute distress. HEENT: Head exam is unremarkable. On nasal cannula. LUNGS: No audible rhonchi or wheezes. HEART: Rate and Rhythm are regular. ABDOMEN: No distention. EXTREMITITES: No edema. Objective - Vital Signs Vital signs: Vital Signs Temp 96.8 F L 12/20/22 07:56 Pulse 96 12/20/22 07:56 Resp 18 12/20/22 07:56 BP 157/93 12/20/22 07:56 Pulse Ox 97 12/20/22 08:23 FiO2 21 12/18/22 07:42 Intake & Output 12/19/22 12/20/22 12/20/22 18:59 06:59 18:59 Intake Total 240 Output Total 400 250 Balance -400 -10 Intake: Oral 240 Output: Urine 400 250 Other: Voiding Method Indwelling Catheter Indwelling Catheter Indwelling Catheter - Labs CBC & Chem 7: 12/20/22 09:40 12/20/22 09:40 Labs: Abnormal Lab Results - Last 24 Hours (Table) 12/20/22 12/20/22 Range/Units 09:40 09:40 RBC 3.44 L (4.30-5.90) m/uL Hgb 10.2 L (13.0-17.5) gm/dL Hct 30.8 L (39.0-53.0) % Carbon Dioxide 21 L (22-30) mmol/L BUN 39 H (9-20) mg/dL Creatinine 2.81 H (0.66-1.25) mg/dL Glucose 121 H (74-99) mg/dL Calcium 7.9 L (8.4-10.2) mg/dL Microbiology - Last 24 Hours (Table) 12/14/22 00:55 Blood Culture - Final Blood 12/14/22 00:40 Blood Culture - Final Blood Assessment and Plan Plan: Assessment: 1. Acute kidney injury secondary to ATN and obstructive uropathy. Creatinine 3.86 on admission and is down to 2.81 today. Creatinine in August 2022 was 1.1. Nonoliguric. 2. Bilateral hydronephrosis with bladder cancer status post TURBT 12/18/2022. Urology following. Has Garcia catheter. 3. Proteus UTI on antibiotics. 4. Metabolic acidosis secondary to acute kidney injury and IV fluids. Improved. On oral bicarbonate. 5. Benign hypertension. Stable. 6. Anemia. Iron deficiency noted. On Aranesp. 7. Hypokalemia from poor intake and postobstructive diuresis. 8. Hypomagnesemia from poor intake. Plan: Maintain IV fluids. Continue to monitor renal function and urine output. Maintain IV iron. Replace potassium. Add oral magnesium oxide.
[2022-12-20] MEDS ORDERED: Potassium Replacement Protocol 1 EACH MISC MISCELLANE PRN (11:51)
[2022-12-20] MEDS ORDERED: Magnesium Replacement Protocol 1 EACH MISC MISCELLANE PRN (11:52)
[2022-12-20] MEDS ORDERED: MAGNESIUM SULFATE-D5W PMX 1 GM in DEXTROSE/WATER 1 100ML.BAG IVPB SCH (12:00)
[2022-12-20] MEDS: MAGNESIUM OXIDE 400 MG TAB PO SCH ×3 (12:35→21:34)
[2022-12-20] MEDS: POTASSIUM CHLORIDE ER 20 MEQ TAB.ER PO STA ×2 (12:35→13:04)
[2022-12-20] MEDS ORDERED: POTASSIUM CHLORIDE ER 20 MEQ TAB.ER PO STA (12:59)
--- NOTE | 2022-12-20 14:17 | P.PN ---
Subjective Progress Note Date: 12/20/22 Patient is a 82-year-old male with a PMH of A. fib on Eliquis, urinary retention status post indwelling Pena catheter, acute kidney injury, type II DM, hypertension, hyperlipidemia, who presents to the emergency room with complaints of generalized weakness and inability to ambulate. The patient reports that he has been feeling more weak than usual over the past 3-4 days. He reports being unable to stand up off a chair and that he is unable to participate in his ADLs as a result. CT brain in the emergency room was unremarkable. Chest x-ray was also unremarkable. EKG revealed A. fib at 77 bpm. Laboratory evaluation was remarkable for leukocytosis of 12.7, and on ., creatinine 3.86 (up from 2.2 from 11/22), with an abnormal UA. 12/15 Patient was seen and examined. No acute events overnight. He reports no complaints today. CBC shows hemoglobin of 8.7. BMP shows chloride of 109, bicarb of 19, BUN of 50, creatinine of 3.68, calcium of 7.5. Renal ultrasound shows severe left-sided hydronephrosis with mild to moderate right-sided hydronephrosis. 12/16 Patient was seen and examined. No acute events overnight. Patient reports feeling well. He has no complaints. UCx + pseudomonas mendiola sensitive. CBC shows Hg 9. BMP shows K 3.3, Cl 109, bicarb 19, BUN 42, Cr 3.35, Ca 7.8. 12/17 Patient was seen and examined. He reports no complaints. Pena catheter switched on 12/13. Antibiotics switched from Rocephin to Cefepime. Plans for TURP on Wednesday. BMP shows Cl 111, bicarb 19, BUN 35, Cr 3.21, Ca 8.1. 12/18 Patient was seen and examined. Multiple family members at bedside. Patient appears to be confused and anxious this morning which I have not noticed since 12/15. RN reports intermittent confusion usually at night. Plans for TURP today. BMP shows Cl 109, BUN 33, Cr 3.12, Ca 8.3. 12/19 Patient was seen and examined. Sitter at bedside. He continues to show intermittent confusion. He is redirectable however. He underwent TURP yesterday. He reports feeling extremely weak and tired. He cannot remember that he had a procedure yesterday. CT head done yesterday negative for acute pathology. Ur ology has cleared the patient for discharge. He lives with his at home and was last seen by PT on 12/17. I would prefer that PT evaluated the patient once again prior to discharge. CBC shows Hg 8.9. BMP shows Cl 108, bicarb 19, BUN 37, Cr 3.12, Ca 7.9. 12/20 Patient was seen and examined. No acute events overnight. Patient reports feeling worn out. He reports issues with his intestines but he is unable to describe his problem any further. Later on, RN reported multiple episodes on vomiting. He has not been eating much over the past 2 days. PT was unable to see him yesterday and today. CBC shows hemoglobin of 10.2. MB shows bicarb of 21, BUN 39, creatinine 2.81, glucose 121 and calcium 7.9. Magnesium 1.6. General: non toxic, no distress, appears at stated age, normal weight Derm: no unusual rashes/lesions, warm Head: atraumatic, normocephalic, symmetric Eyes: EOMI, no lid lag, anicteric sclera ENT: Nose and ears atraumatic Neck: No cervical lymphadenopathy, trachea midline, supple Cardiovascular: S1S2 reg, no murmur, no edema Lungs: CTA bilateral, no rhonchi, no rales, no accessory muscle use Abdominal: soft, nontender to palpation, no guarding, + pena catheter, + BS Ext: no gross muscle atrophy, no contractures, Neuro: no gross focal neuro deficits Psych: Alert, oriented x 1-2. Slow to respond. N/V Delirium UTI, in setting of indwelling Pena Acute kidney injury on chronic kidney disease Normocytic anemia Hyperchloremic metabolic acidosis Hypocalcemia Chronic conditions: A. fib, hypertension, hyperlipidemia, type II Based on my assessment of this patient, this patient meets a moderate complexity level of care. Patient has an acute diagnosis of MARION on CKD due to obstructive uropathy complicated with UTI that poses a threat to life or bodily function. N/V: Obtain CT AP without contrast. Delirium: Avoid sedative medications. Frequent redirection. CT head negative. UTI, in setting of indwelling Pena: Continue Cefepime 1g IV TID. UCx + pseudomonas mendiola sensitive. BCx negative. Plans for Ciprofloxacin on discharge. Acute kidney injury on chronic kidney disease: Cr 2.81. Nephrology recommends IV hydration. Urology recommends Underwent TURP on 12/18. Hyperchloremic metabolic acidosis: Continue sodium bicarbonate. Hypocalcemia I will restart his Eliquis tonight. Discharge planning based on PT and OT recommendations. I have reviewed the following railroad design consultant notes: I have reviewed the results of the following tests: BMP, CBC I have ordered the following tests: CBC and BMP. CT AP ordered. I have discussed the care of this patient with the following independent historian: Case discussed with RN. I have independently interpreted the following test below: I have discussed the management of this patient with the following physician: Objective - Vital Signs Vital signs: Vital Signs Temp 97.4 F L 12/20/22 12:29 Pulse 68 12/20/22 12:29 Resp 18 12/20/22 12:29 BP 161/88 12/20/22 12:29 Pulse Ox 97 12/20/22 12:29 FiO2 21 12/18/22 07:42 Intake & Output 12/19/22 12/20/22 12/20/22 18:59 06:59 18:59 Intake Total 240 Output Total 400 250 Balance -400 -10 Intake: Oral 240 Output: Urine 400 250 Other: Voiding Method Indwelling Catheter Indwelling Catheter Indwelling Catheter - Labs CBC & Chem 7: 12/20/22 09:40 12/20/22 09:40 Labs: Abnormal Lab Results - Last 24 Hours (Table) 12/20/22 12/20/22 Range/Units 09:40 09:40 RBC 3.44 L (4.30-5.90) m/uL Hgb 10.2 L (13.0-17.5) gm/dL Hct 30.8 L (39.0-53.0) % Carbon Dioxide 21 L (22-30) mmol/L BUN 39 H (9-20) mg/dL Creatinine 2.81 H (0.66-1.25) mg/dL Glucose 121 H (74-99) mg/dL Calcium 7.9 L (8.4-10.2) mg/dL Microbiology - Last 24 Hours (Table) 12/14/22 00:55 Blood Culture - Final Blood 12/14/22 00:40 Blood Culture - Final Blood
--- NOTE | 2022-12-20 15:32 | CT ---
EXAMINATION TYPE: CT abdomen pelvis wo con CT DLP: 752.2 mGycm, Automated exposure control for dose reduction was used. DATE OF EXAM: 12/20/2022 2:48 PM COMPARISON: 05/12/2020 CLINICAL INDICATION:Male, 82 years old with history of recurring emesis; appetite changes; abd pain TECHNIQUE: Axial CT of the abdomen and pelvis. Sagittal and coronal reformats were created on a [employer] workstation. Contrast used: mL of , (none if empty) Oral contrast used: without Oral Contrast (none if empty) FINDINGS: LOWER CHEST: The heart is enlarged for size. Trace bilateral pleural effusions. Severe coronary arter y cusp patient's. ABDOMEN LIVER: Unremarkable GALLBLADDER AND BILE DUCTS: Unremarkable. PANCREAS: Unremarkable. SPLEEN: Unremarkable. ADRENAL GLANDS: Unremarkable. KIDNEYS AND URETERS: No evidence of hydronephrosis or renal calculus. The ureters are unremarkable. PELVIS BLADDER: Nondistended with Garcia catheter in place. REPRODUCTIVE: Prostate is enlarged in size measuring 5.4 cm in transverse dimension. ABDOMEN & PELVIS STOMACH AND BOWEL: Small moderate hiatal hernia. Scattered colonic diverticula are present. The appen anil is normal. PERITONEUM/RETROPERITONEUM: Is fat stranding changes in the lower abdomen; multiple loops of bowel in cluding the sigmoid colon. Multiple colonic diverticula present. Multiple stacking loops of small bow el are present in the upper abdomen. These are dilated up to 4.2 cm. No evidence of pneumoperitoneum. There is small amount of free fluid throughout the abdomen. VASCULATURE: No evidence of aortic aneurysm. Biiliac stent graft is present. Evaluation limited by no ncontrast technique. MUSCULOSKELETAL: Multilevel disc degeneration changes are seen throughout the spine. Arthroplasty hallie nges with hardware intact. No evidence of fracture. LYMPH NODES: No gross evidence for lymphadenopathy. SOFT TISSUE/ABDOMINAL WALL: Unremarkable IMPRESSION: 1. Findings suspicious for colitis/diverticulitis with reactive partial bowel obstruction. Transitio n point not definitively visualized due streak artifact from fixation hardware and lack of IV and ora l contrast. 2. Severe left and moderate right hydronephrosis with hydroureter. Correlate with chronic bladder ou tlet obstruction. Alternatively this may be secondary inflammation changes described above in the upp er pelvis. 3. Cardiomegaly with bilateral pleural effusions, serum BNP for congestive heart failure. 4. Small moderate hiatal hernia.
[2022-12-20] MEDS: metroNIDAZOLE-NS PMX 500 MG in SALINE 1 100ML.BAG IVPB SCH (16:52)
[2022-12-20] MEDS: PRAVASTATIN SODIUM 80 MG TAB PO SCH (21:34)
[2022-12-20] MEDS: APIXABAN 2.5 MG TABLET PO SCH (21:34)
[2022-12-21] MEDS: metroNIDAZOLE-NS PMX 500 MG in SALINE 1 100ML.BAG IVPB SCH ×4 (00:51→23:38)
[2022-12-21] MEDS: SODIUM FERRIC GLUCONAT-SUCROSE 125 MG in SODIUM CHLORIDE 0.9% 100 ML IVPB SCH (08:27)
[2022-12-21] MEDS: SODIUM BICARBONATE TAB 650 MG TAB PO SCH ×2 (09:10→20:38)
[2022-12-21] MEDS: carvediloL 12.5 MG TAB PO SCH ×2 (09:10→17:21)
[2022-12-21] MEDS: APIXABAN 2.5 MG TABLET PO SCH ×2 (09:10→20:36)
[2022-12-21] MEDS: TAMSULOSIN 0.4 MG CAP.ER.24H PO SCH (09:10)
[2022-12-21] MEDS: FAMOTIDINE 20 MG TAB PO SCH (09:10)
[2022-12-21] MEDS: MAGNESIUM OXIDE 400 MG TAB PO SCH ×2 (09:10→20:36)
[2022-12-21] MEDS: CEFEPIME 1 GM in SODIUM CHLORIDE 0.9% 50 ML IVPB SCH ×2 (09:44→20:35)
[2022-12-21 11:05] LABS: BUN/Creat Ratio 13.33 Ratio (12.00-20.00); Calcium 8.2 mg/dL (8.7-10.3); Carbon Dioxide 19.2 mmol/L (21.6-31.8); Chloride 110 mmol/L (96-109); Glucose 124 mg/dL (70-110); Magnesium 1.8 mg/dL (1.5-2.4); Potassium 3.9 mmol/L (3.5-5.5); Sodium 145 mmol/L (135-145)
[2022-12-21] MEDS: hydrALAZINE HCL 20 MG/ML 1 ML VIAL IVP PRN (11:12)
[2022-12-21] MEDS ORDERED: SODIUM BICARB 8.4% 50 ML SYR (1 MEQ/ML) IV STA (13:01)
--- NOTE | 2022-12-21 13:02 | P.PN ---
Subjective Patient is seen in follow-up for acute kidney injury. Renal function fairly stable. Resting in bed. Oral intake is fair. Still confused. Sitter at bedside. Nonoliguric. Vital signs are stable. General: No acute distress. HEENT: Head exam is unremarkable. On nasal cannula. LUNGS: No audible rhonchi or wheezes. HEART: Rate and Rhythm are regular. ABDOMEN: No distention. EXTREMITITES: No edema. Objective - Vital Signs Vital signs: Vital Signs Temp 99.1 F 12/21/22 06:59 Pulse 67 12/21/22 11:06 Resp 17 12/21/22 06:59 BP 172/94 12/21/22 11:06 Pulse Ox 96 12/21/22 08:37 FiO2 12/18/22 07:42 Intake & Output 12/20/22 12/21/22 12/21/22 18:59 06:59 18:59 Output Total 300 1200 Balance -300 -1200 Output: Urine 300 1200 Other: Voiding Method Indwelling Catheter Indwelling Catheter Indwelling Catheter # Bowel Movements 1 - Labs CBC & Chem 7: 12/20/22 09:40 12/21/22 06:08 Labs: Abnormal Lab Results - Last 24 Hours (Table) 12/21/22 Range/Units 06:08 Chloride 110 H (96-109) mmol/L Carbon Dioxide 19.2 L (21.6-31.8) mmol/L Anion Gap 15.80 H (4.00-12.00) mmol/L BUN 36.0 H (9.0-27.0) mg/dL Creatinine 2.7 H (0.6-1.5) mg/dL Est GFR (CKD-EPI) 23 L (>=60) Glucose 124 H (70-110) mg/dL Calcium 8.2 L (8.7-10.3) mg/dL Assessment and Plan Plan: Assessment: 1. Acute kidney injury secondary to ATN and obstructive uropathy. Creatinine 3.86 on admission and is down to 27 today. Creatinine in August 2022 was 1.1. Nonoliguric. 2. Bilateral hydronephrosis with bladder cancer status post TURBT 12/18/2022. Urology following. Has Garcia catheter. 3. Proteus UTI on antibiotics. 4. Metabolic acidosis secondary to acute kidney injury and IV fluids. Improved. On oral bicarbonate. 5. Benign hypertension. Stable. 6. Anemia. Iron deficiency noted. On Aranesp. 7. Hypokalemia from poor intake and postobstructive diuresis. Replaced. Better. 8. Hypomagnesemia from poor intake. Replaced. Better. On oral mag-ox. Plan: Maintain IV fluids - change to LR at 50 cc/hr. Continue to monitor renal function and urine output. Maintain IV iron. Add scheduled hydrlazine - hold for sbp <125. Not taking po meds at this time.
--- NOTE | 2022-12-21 13:36 | P.PN ---
Subjective Progress Note Date: 12/21/22 Patient is a 82-year-old male with a PMH of A. fib on Eliquis, urinary retention status post indwelling Pena catheter, acute kidney injury, type II DM, hypertension, hyperlipidemia, who presents to the emergency room with complaints of generalized weakness and inability to ambulate. The patient reports that he has been feeling more weak than usual over the past 3-4 days. He reports being unable to stand up off a chair and that he is unable to participate in his ADLs as a result. CT brain in the emergency room was unremarkable. Chest x-ray was also unremarkable. EKG revealed A. fib at 77 bpm. Laboratory evaluation was remarkable for leukocytosis of 12.7, and on ., creatinine 3.86 (up from 2.2 from 11/22), with an abnormal UA. 12/15 Patient was seen and examined. No acute events overnight. He reports no complaints today. CBC shows hemoglobin of 8.7. BMP shows chloride of 109, bicarb of 19, BUN of 50, creatinine of 3.68, calcium of 7.5. Renal ultrasound shows severe left-sided hydronephrosis with mild to moderate right-sided hydronephrosis. 12/16 Patient was seen and examined. No acute events overnight. Patient reports feeling well. He has no complaints. UCx + pseudomonas mendoila sensitive. CBC shows Hg 9. BMP shows K 3.3, Cl 109, bicarb 19, BUN 42, Cr 3.35, Ca 7.8. 12/17 Patient was seen and examined. He reports no complaints. Pena catheter switched on 12/13. Antibiotics switched from Rocephin to Cefepime. Plans for TURP on Wednesday. BMP shows Cl 111, bicarb 19, BUN 35, Cr 3.21, Ca 8.1. 12/18 Patient was seen and examined. Multiple family members at bedside. Patient appears to be confused and anxious this morning which I have not noticed since 12/15. RN reports intermittent confusion usually at night. Plans for TURP today. BMP shows Cl 109, BUN 33, Cr 3.12, Ca 8.3. 12/19 Patient was seen and examined. Sitter at bedside. He continues to show intermittent confusion. He is redirectable however. He underwent TURP yesterday. He reports feeling extremely weak and tired. He cannot remember that he had a procedure yesterday. CT head done yesterday negative for acute pathology. Ur ology has cleared the patient for discharge. He lives with his at home and was last seen by PT on 12/17. I would prefer that PT evaluated the patient once again prior to discharge. CBC shows Hg 8.9. BMP shows Cl 108, bicarb 19, BUN 37, Cr 3.12, Ca 7.9. 12/20 Patient was seen and examined. No acute events overnight. Patient reports feeling worn out. He reports issues with his intestines but he is unable to describe his problem any further. Later on, RN reported multiple episodes on vomiting. He has not been eating much over the past 2 days. PT was unable to see him yesterday and today. CBC shows hemoglobin of 10.2. BMP shows bicarb of 21, BUN 39, creatinine 2.81, glucose 121 and calcium 7.9. Magnesium 1.6. 12/21 Patient was seen and examined. He continues to be delirious. Sitter at bed side. Small bowel movement and no N/V per RN. CT AP shows continued right hydronephrosis with hydroureter. New finding of diverticulitis with partial SBO. BMP shows Cl 110, bicarb 19.2, BUN 36, Cr 2.7, glucose 124, Ca 8.2. General: non toxic, no distress, appears at stated age, normal weight Derm: no unusual rashes/lesions, warm Head: atraumatic, normocephalic, symmetric Eyes: EOMI, no lid lag, anicteric sclera ENT: Nose and ears atraumatic Neck: No cervical lymphadenopathy, trachea midline, supple Cardiovascular: S1S2 reg, no murmur, no edema Lungs: CTA bilateral, no rhonchi, no rales, no accessory muscle use Abdominal: soft, nontender to palpation, no guarding, + pena catheter, + BS sl uggish Ext: no gross muscle atrophy, no contractures, Neuro: no gross focal neuro deficits Psych: Alert, oriented x 1-2. Slow to respond. Diverticulitis with partial SBO Delirium UTI, in setting of indwelling Pena Acute kidney injury on chronic kidney disease Normocytic anemia Hyperchloremic metabolic acidosis Hypocalcemia Chronic conditions: A. fib, hypertension, hyperlipidemia, type II Based on my assessment of this patient, this patient meets a moderate complexity level of care. Patient has an acute diagnosis of MARION on CKD due to obstructive uropathy complicated with UTI that poses a threat to life or bodily function. Diverticulitis with partial SBO. Patient was placed NPO yesterday. Surgery consulted. Sluggish BS heard on physical exam. Added Flagyl 500 mg IV TID while continuing Cefepime. Delirium: Avoid sedative medications. Frequent redirection. CT head negative. Awaiting PT re-evaluation. UTI, in setting of indwelling Pena: Continue Cefepime 1g IV TID. UCx + pseudomonas mendiola sensitive. BCx negative. Plans for Ciprofloxacin on discharge. Acute kidney injury on chronic kidney disease: Cr 2.7. Nephrology recommends IV hydration with LR 50 cc/hr. Urology recommends Underwent TURP on 12/18. Hyperchloremic metabolic acidosis: Continue sodium bicarbonate. Hypocalcemia Eliquis re-started. Discharge planning based on PT and OT recommendations, likely SNF. I have reviewed the following mainframe consultant notes: I have reviewed the results of the following tests: BMP, CT AP I have ordered the following tests: CBC and BMP I have discussed the care of this patient with the following independent historian: Case discussed with RN. I have independently interpreted the following test below: I have discussed the management of this patient with the following physician: Objective - Vital Signs Vital signs: Vital Signs Temp 99.1 F 12/21/22 06:59 Pulse 67 12/21/22 11:06 Resp 17 12/21/22 06:59 BP 172/94 12/21/22 11:06 Pulse Ox 96 12/21/22 08:37 FiO2 21 12/18/22 07:42 Intake & Output 12/20/22 12/21/22 12/21/22 18:59 06:59 18:59 Output Total 300 1200 Balance -300 -1200 Output: Urine 300 1200 Other: Voiding Method Indwelling Catheter Indwelling Catheter Indwelling Catheter # Bowel Movements 1 - Labs CBC & Chem 7: 12/20/22 09:40 12/21/22 06:08 Labs: Abnormal Lab Results - Last 24 Hours (Table) 12/21/22 Range/Units 06:08 Chloride 110 H (96-109) mmol/L Carbon Dioxide 19.2 L (21.6-31.8) mmol/L Anion Gap 15.80 H (4.00-12.00) mmol/L BUN 36.0 H (9.0-27.0) mg/dL Creatinine 2.7 H (0.6-1.5) mg/dL Est GFR (CKD-EPI) 23 L (>=60) Glucose 124 H (70-110) mg/dL Calcium 8.2 L (8.7-10.3) mg/dL
--- NOTE | 2022-12-21 13:46 | P.GSCN ---
History of Present Illness Consult date: 12/21/22 History of present illness: CHIEF COMPLAINT: Weakness Reason for consult: Partial small bowel obstruction and diverticulitis HISTORY OF PRESENT ILLNESS: This is a 82-year-old male who presented with weakness and dehydration. He has a known history of bladder cancer recently diagnosed and did undergo TURBT with urology service during this admission. Patient also followed by nephrology for acute kidney injury due and obstructive uropathy. Patient is confused. Most of history obtained from nursing staff. Patient had 2 episodes of vomiting yesterday and had a computed tomography scan of the abdomen and pelvis completed showing suspicion for colitis/diverticulitis with reactive partial bowel obstruction. Patient is currently on antibiotics. He is having bowel movements. He remains confused. Abdomen is soft and nontender. He is on Eliquis for AFIB. Patient does have a bedside sitter. Patient does have cardiac history with CABG. past abdominal surgical history includes cholecystectomy and hernia repair. PAST MEDICAL HISTORY: See below PAST SURGICAL HISTORY: See below MEDICATIONS: See below ALLERGIES: See below SOCIAL HISTORY: No illicit drug use. REVIEW OF SYSTEMS: CONSTITUTIONAL: Denies fever or chills. HEENT: Denies blurred vision, vision changes, or eye pain. Denies hemoptysis CARDIOVASCULAR: Denies chest pain or pressure. RESPIRATORY: No shortness of breath. GASTROINTESTINAL: See HPI for pertinent findings HEMATOLOGIC: Denies bleeding disorders. GENITOURINARY: Denies any blood in urine or increased urinary frequency. SKIN: Denies pruitis. Denies rash. PHYSICAL EXAM: VITAL SIGNS: Reviewed GENERAL: Well-developed in no acute distress. ABDOMEN: Soft. nondistended. Nontender NEUROLOGIC: Awake but confused LABORATORY DATA: WBC 10.4 Hgb 10.2 platelets 206 Sodium 145 potassium 3.9 creatinine 2.7 IMAGING: Computed tomography scan abdomen and pelvis suspicious findings for colitis/diverticulitis with reactive partial bowel obstruction. Transition point not definitively visualized due to streak artifact. Severe left and moderate right hydronephrosis with hydroureter. Correlate for chronic bladder outlet obstruction. Cardiomegaly with bilateral pleural effusions. Small moderate hiatal hernia. ASSESSMENT: 1. Ileus improving. Patient having bowel movements. Doubt bowel obstruction 2. Possible colitis/diverticulitis noted on CAT scan 3. Bladder cancer status post TURBT 4. MARION PLAN: -Start clear liquids -Continue antibiotics -Continue supportive care Thank you for this consultation Physician [employer] Etch Operator note has been reviewed by physician. Signing provider agrees with the documented findings, assessment, and plan of care. Past Medical History Past Medical History: Atrial Fibrillation, Coronary Artery Disease (CAD), Hypertension, Osteoarthritis (OA), Pneumonia, Prostate Disorder Additional Past Medical History / Comment(s): pneumonia May 2020 after hernia surgery Last Myocardial Infarction Date:: unknown History of Any Multi-Drug Resistant Organisms: None Reported Past Surgical History: Cholecystectomy, Coronary Bypass/CABG, Heart Cathet erization With Stent, Hernia Repair, Joint Replacement Additional Past Surgical History / Comment(s): triple bypass 14 years ago, aortic aneurysm repair, rt hip replacement, left inguinal hernia repair, unsure how many cardiac stents Cystoscopy on 10/26/22 (chronic pena placed) Past Anesthesia/Blood Transfusion Reactions: No Reported Reaction Date of Last Stent Placement:: unknown Past Psychological History: No Psychological Hx Reported Smoking Status: Former smoker Past Alcohol Use History: None Reported Additional Past Alcohol Use History / Comment(s): quit smoking 20 yrs. ago, 1ppd for 25 yrs. Past Drug Use History: None Reported - Past Family History Mother Family Medical History: No Reported History Father Family Medical History: Congestive Heart Failure (CHF) (Father at the age of 78 from CHF.), Hypertension Additional Family Medical History / Comment(s): Patient states that his parents never went to the doctor. He thinks his father of hypertensive disease. He does not know much about his mother. Denies any significant medical history in siblings, is and has kids with no significant medical. lives of at home. Brother(s) Family Medical History: No Reported History (patient has one brother no major issues.) Sister(s) Family Medical History: No Reported History (patient has 2 sisters no major medical problems) Son(s) Family Medical History: No Reported History (patient has 2 sons ok.) Daughter(s) Family Medical History: No Reported History (one daughter ok.) Medications and Allergies Home Medications Medication Instructions Recorded Confirmed Type Pravastatin Sodium [Pravachol] 40 mg PO HS 07/21/17 12/14/22 History amLODIPine [Norvasc] 5 mg PO DAILY 05/12/20 12/14/22 History Tamsulosin HCl [Flomax] 0.4 mg PO DAILY 10/29/22 12/14/22 History Apixaban [Eliquis] 2.5 mg PO BID #60 tab 11/03/22 12/14/22 Rx Pravastatin Sodium [Pravachol] 80 mg PO HS #60 tab 11/03/22 12/14/22 Rx carvediloL [Coreg*] 12.5 mg PO BID-W/MEALS #60 tab 11/03/22 12/14/22 Rx Ciprofloxacin HCl [Cipro] 500 mg PO DAILY 5 Days #5 tab 12/19/22 Rx Allergies Allergy/AdvReac Type Severity Reaction Status Date / Time No Known Allergies Allergy Verified 12/14/22 08:03 Surgical - Exam Vital Signs Temp Pulse Resp BP Pulse Ox 98.7 F 76 18 165/77 98 12/13/22 21:54 12/13/22 21:54 12/13/22 21:54 12/13/22 21:54 12/13/22 21:54 Results - Labs 12/20/22 09:40 12/21/22 06:08 Abnormal Lab Results - Last 24 Hours (Table) 12/20/22 12/20/22 Range/Units 09:40 09:40 RBC 3.44 L (4.30-5.90) m/uL Hgb 10.2 L (13.0-17.5) gm/dL Hct 30.8 L (39.0-53.0) % Carbon Dioxide 21 L (22-30) mmol/L BUN 39 H (9-20) mg/dL Creatinine 2.81 H (0.66-1.25) mg/dL Glucose 121 H (74-99) mg/dL Calcium 7.9 L (8.4-10.2) mg/dL Diabetes panel 12/20/22 Range/Units 09:40 Sodium 139 (137-145) mmol/L Potassium 3.6 (3.5-5.1) mmol/L Chloride 107 (98-107) mmol/L Carbon Dioxide 21 L (22-30) mmol/L BUN 39 H (9-20) mg/dL Creatinine 2.81 H (0.66-1.25) mg/dL Glucose 121 H (74-99) mg/dL Calcium 7.9 L (8.4-10.2) mg/dL Calcium panel 12/20/22 Range/Units 09:40 Calcium 7.9 L (8.4-10.2) mg/dL Pituitary panel 12/20/22 Range/Units 09:40 Sodium 139 (137-145) mmol/L Potassium 3.6 (3.5-5.1) mmol/L Chloride 107 (98-107) mmol/L Carbon Dioxide 21 L (22-30) mmol/L BUN 39 H (9-20) mg/dL Creatinine 2.81 H (0.66-1.25) mg/dL Glucose 121 H (74-99) mg/dL Calcium 7.9 L (8.4-10.2) mg/dL Adrenal panel 12/20/22 Range/Units 09:40 Sodium 139 (137-145) mmol/L Potassium 3.6 (3.5-5.1) mmol/L Chloride 107 (98-107) mmol/L Carbon Dioxide 21 L (22-30) mmol/L BUN 39 H (9-20) mg/dL Creatinine 2.81 H (0.66-1.25) mg/dL Glucose 121 H (74-99) mg/dL Calcium 7.9 L (8.4-10.2) mg/dL
[2022-12-21] MEDS: hydrALAZINE HCL 25 MG TAB PO SCH ×3 (14:06→22:06)
[2022-12-21] MEDS: LACTATED RINGERS 1,000 ML IV SCH (16:32)
[2022-12-21] MEDS: PRAVASTATIN SODIUM 80 MG TAB PO SCH (20:36)
[2022-12-22] MEDS: SODIUM FERRIC GLUCONAT-SUCROSE 125 MG in SODIUM CHLORIDE 0.9% 100 ML IVPB SCH (08:45)
[2022-12-22] MEDS: MAGNESIUM OXIDE 400 MG TAB PO SCH ×2 (08:46→20:09)
[2022-12-22] MEDS: carvediloL 12.5 MG TAB PO SCH ×2 (08:46→17:17)
[2022-12-22] MEDS: hydrALAZINE HCL 25 MG TAB PO SCH ×3 (08:46→21:42)
[2022-12-22] MEDS: SODIUM BICARBONATE TAB 650 MG TAB PO SCH ×2 (08:46→20:09)
[2022-12-22] MEDS: FAMOTIDINE 20 MG TAB PO SCH (08:46)
[2022-12-22] MEDS: APIXABAN 2.5 MG TABLET PO SCH ×2 (08:46→20:10)
[2022-12-22] MEDS: TAMSULOSIN 0.4 MG CAP.ER.24H PO SCH (08:46)
[2022-12-22 09:07] LABS: BUN/Creat Ratio 14.31 Ratio (12.00-20.00); Blood Urea Nitrogen 37.2 mg/dL (9.0-27.0); Carbon Dioxide 22.6 mmol/L (21.6-31.8); Chloride 112 mmol/L (96-109); Glucose 119 mg/dL (70-110); Magnesium 1.7 mg/dL (1.5-2.4); Potassium 3.1 mmol/L (3.5-5.5); Sodium 149 mmol/L (135-145)
[2022-12-22] MEDS: metroNIDAZOLE-NS PMX 500 MG in SALINE 1 100ML.BAG IVPB SCH ×3 (10:00→23:34)
[2022-12-22] MEDS: CEFEPIME 1 GM in SODIUM CHLORIDE 0.9% 50 ML IVPB SCH ×2 (10:00→20:11)
[2022-12-22] MEDS: LACTATED RINGERS 1,000 ML IV SCH (10:09)
[2022-12-22] MEDS: DARBEPOETIN ALFA 60 MCG/0.3 ML SYRINGE SQ SCH (11:17)
[2022-12-22] MEDS: POTASSIUM CHLORIDE ER 20 MEQ TAB.ER PO SCH ×4 (13:15→19:57)
[2022-12-22] MEDS ORDERED: POTASSIUM CHLORIDE ER 20 MEQ TAB.ER PO STA (13:19)
--- NOTE | 2022-12-22 13:21 | P.PN ---
Subjective Patient is seen in follow-up for acute kidney injury. Renal function fairly stable. Resting in bed. Oral intake is fair. Drinking more fluids. Sodium level 149 today. Poor historian. Sitter at bedside. Nonoliguric. Vital signs are stable. General: No acute distress. HEENT: Head exam is unremarkable. On nasal cannula. LUNGS: No audible rhonchi or wheezes. HEART: Rate and Rhythm are regular. ABDOMEN: No distention. EXTREMITITES: No edema. Objective - Vital Signs Vital signs: Vital Signs Temp 97.5 F L 12/22/22 11:25 Pulse 75 12/22/22 11:25 Resp 18 12/22/22 11:25 BP 129/59 12/22/22 11:25 Pulse Ox 97 12/22/22 11:25 FiO2 21 12/22/22 08:04 Intake & Output 12/21/22 12/22/22 12/22/22 18:59 06:59 18:59 Output Total 1450 800 Balance -1450 -800 Weight 81.647 kg Output: Urine 1450 800 Other: Voiding Method Indwelling Catheter Indwelling Catheter Indwelling Catheter # Bowel Movements 1 1 1 - Labs CBC & Chem 7: 12/20/22 09:40 12/22/22 05:39 Labs: Abnormal Lab Results - Last 24 Hours (Table) 12/22/22 Range/Units 05:39 Sodium 149 H (135-145) mmol/L Potassium 3.1 L (3.5-5.5) mmol/L Chloride 112 H (96-109) mmol/L Anion Gap 14.40 H (4.00-12.00) mmol/L BUN 37.2 H (9.0-27.0) mg/dL Creatinine 2.6 H (0.6-1.5) mg/dL Est GFR (CKD-EPI) 24 L (>=60) Glucose 119 H (70-110) mg/dL Calcium 8.0 L (8.7-10.3) mg/dL Assessment and Plan Plan: Assessment: 1. Acute kidney injury secondary to ATN and obstructive uropathy. Creatinine 3.86 on admission and is down to 2.6 today. Creatinine in August 2022 was 1.1. Nonoliguric. 2. Bilateral hydronephrosis with bladder cancer status post TURBT 12/18/2022. Urology following. Has Garcia catheter. 3. Proteus UTI on antibiotics. 4. Metabolic acidosis secondary to acute kidney injury and IV fluids. Improved. On oral bicarbonate. 5. Benign hypertension. Stable. 6. Anemia. Iron deficiency noted. On Aranesp. 7. Hypokalemia from poor intake and postobstructive diuresis. 8. Hypomagnesemia from poor intake. On oral mag-ox. 9. Hypernatremia from lack of oral water intake. Plan: Change IV fluids to D5W at 70 mL an hour. Continue to monitor renal function and urine output. Maintain IV iron. Potassium being replaced. Repeat sodium level this evening.
[2022-12-22] MEDS ORDERED: DEXTROSE 5% IN WATER 1,000 ML IV SCH (13:30)
--- NOTE | 2022-12-22 13:35 | P.PN ---
Subjective Progress Note Date: 12/22/22 CHIEF COMPLAINT: Ileus HISTORY OF PRESENT ILLNESS: Patient has had 3 bowel movements one of the bowel movements was this morning. Denies any abdominal pain. He is tolerating the full liquids. No nausea or vomiting reported. Afebrile. Sodium is 149 potassium 3.1 creatinine 2.6 PHYSICAL EXAM: VITAL SIGNS: Reviewed. GENERAL: Well-developed in no acute distress. ABDOMEN: Soft. Nondistended. Nontender. NEUROLOGIC: Confused ASSESSMENT: 1. Ileus improving. Patient having bowel movements. Doubt bowel obstruction 2. Possible colitis/diverticulitis noted on CAT scan 3. Bladder cancer status post TURBT 4. MARION 5. Hypokalemia 6. Hyponatremia PLAN: -Continue to correct electrolyte imbalances -Advance diet to regular -Increase activity level -Continue antibiotics Physician Direct Care Staffer note has been reviewed by physician. Signing provider agrees with the documented findings, assessment, and plan of care. Objective - Vital Signs Vital signs: Vital Signs Temp 97.5 F L 12/22/22 11:25 Pulse 75 12/22/22 11:25 Resp 18 12/22/22 11:25 BP 129/59 12/22/22 11:25 Pulse Ox 97 12/22/22 11:25 FiO2 21 12/22/22 08:04 Intake & Output 12/21/22 12/22/22 12/22/22 18:59 06:59 18:59 Output Total 1450 800 Balance -1450 -800 Weight 81.647 kg Output: Urine 1450 800 Other: Voiding Method Indwelling Catheter Indwelling Catheter Indwelling Catheter # Bowel Movements 1 1 1 - Labs CBC & Chem 7: 12/20/22 09:40 12/22/22 05:39 Labs: Abnormal Lab Results - Last 24 Hours (Table) 12/22/22 Range/Units 05:39 Sodium 149 H (135-145) mmol/L Potassium 3.1 L (3.5-5.5) mmol/L Chloride 112 H (96-109) mmol/L Anion Gap 14.40 H (4.00-12.00) mmol/L BUN 37.2 H (9.0-27.0) mg/dL Creatinine 2.6 H (0.6-1.5) mg/dL Est GFR (CKD-EPI) 24 L (>=60) Glucose 119 H (70-110) mg/dL Calcium 8.0 L (8.7-10.3) mg/dL
--- NOTE | 2022-12-22 14:47 | P.PN ---
Subjective Progress Note Date: 12/22/22 Hospital Course: 82-year-old male with a PMH of A. fib on Eliquis, urinary retention status post indwelling Pena catheter, acute kidney injury, type II DM, hypertension, hyperlipidemia, who presents to the emergency room with complaints of generalized weakness and inability to ambulate. CT brain in the emergency room was unremarkable. Chest x-ray was also unremarkable. EKG revealed A. fib at 77 bpm. Laboratory evaluation was remarkable for leukocytosis of 12.7, and on 8.1, creatinine 3.86 (up from 2.2 from 11/22), with an abnormal UA. Renal ultrasound shows severe left-sided hydronephrosis with mild to moderate right-sided hydronephrosis. UCx + pseudomonas mendiola sensitive. Antibiotics switched from Rocephin to Cefepime. He continues to show intermittent confusion. S/p TURP. CT AP shows continued right hydronephrosis with hydroureter. New finding of diverticulitis with partial SBO. surgery and nephro following. Subjective: She is seen and examined at bedside. No acute events overnight. Continues to be delirious. Denies any abdominal pain. Pertinent positives and negatives as discussed above, a complete review of systems was performed and all other systems are negative. Vitals Signs Reviewed. General: non toxic, no distress, appears at stated age, normal weight Derm: no unusual rashes/lesions, warm Head: atraumatic, normocephalic, symmetric Eyes: EOMI, no lid lag, anicteric sclera ENT: Nose and ears atraumatic Neck: No cervical lymphadenopathy, trachea midline, supple Cardiovascular: S1S2 reg, no murmur, no edema Lungs: CTA bilateral, no rhonchi, no rales, no accessory muscle use Abdominal: soft, nontender to palpation, no guarding, + pena catheter, + BS sluggish Ext: no gross muscle atrophy, no contractures, Neuro: no gross focal neuro deficits Psych: Alert, oriented x 1-2. Slow to respond. Data Reviewed Today: Pertinent Labs: Sodium 149, potassium 3.1, creatinine 2.6, magnesium 1.7 Imaging: No new imaging Assessment and Plan: Diverticulitis with partial SBO Delirium UTI, in setting of indwelling Pena Acute kidney injury on chronic kidney disease Hypokalemia Hypomagnesemia Hypernatremia Normocytic anemia, iron deficiency Hyperchloremic metabolic acidosis Chronic conditions: A. fib, hypertension, hyperlipidemia, type II diabetes - Surgery note reviewed, and fast diet to regular, continue antibiotics -Nephrology note reviewed, fluids changed to D5 water at 70 mL an hour, continue IV iron, replace potassium -Repeat BMP tomorrow -Continue oral bicarbonate -Continue cefepime and Flagyl -Continue Coreg, hydralazine DVT ppx: Eliquis Code status: Full code Anticipated discharge place: Pending clinical course Anticipated discharge time: Pending clinical course Objective - Vital Signs Vital signs: Vital Signs Temp 97.5 F L 12/22/22 11:25 Pulse 75 12/22/22 11:25 Resp 18 12/22/22 11:25 BP 129/59 12/22/22 11:25 Pulse Ox 97 12/22/22 11:25 FiO2 21 12/22/22 08:04 Intake & Output 12/21/22 12/22/22 12/22/22 18:59 06:59 18:59 Output Total 1450 800 Balance -1450 -800 Weight 81.647 kg Output: Urine 1450 800 Other: Voiding Method Indwelling Catheter Indwelling Catheter Indwelling Catheter # Bowel Movements 1 1 1 - Labs CBC & Chem 7: 12/20/22 09:40 12/22/22 05:39 Labs: Abnormal Lab Results - Last 24 Hours (Table) 12/22/22 Range/Units 05:39 Sodium 149 H (135-145) mmol/L Potassium 3.1 L (3.5-5.5) mmol/L Chloride 112 H (96-109) mmol/L Anion Gap 14.40 H (4.00-12.00) mmol/L BUN 37.2 H (9.0-27.0) mg/dL Creatinine 2.6 H (0.6-1.5) mg/dL Est GFR (CKD-EPI) 24 L (>=60) Glucose 119 H (70-110) mg/dL Calcium 8.0 L (8.7-10.3) mg/dL
[2022-12-22] MEDS ORDERED: Potassium Replacement Protocol 1 EACH MISC MISCELLANE PRN (19:55)
[2022-12-22] MEDS: POTASSIUM CHLORIDE 10 MEQ in WATER FOR INJECTION 1 100ML.BAG IVPB SCH ×3 (20:09→22:36)
[2022-12-22] MEDS: PRAVASTATIN SODIUM 80 MG TAB PO SCH (20:10)
[2022-12-22] MEDS ORDERED: MORPHINE SULFATE 2 MG/ML SYRINGE IVP STA (21:21)
[2022-12-23] MEDS: POTASSIUM CHLORIDE 10 MEQ in WATER FOR INJECTION 1 100ML.BAG IVPB SCH ×3 (00:35→04:03)
[2022-12-23] MEDS ORDERED: Potassium Replacement Protocol 1 EACH MISC MISCELLANE PRN (02:53)
[2022-12-23 06:41] LABS: Basophils % (A) 0 %; Eosinophils # (A) 0.1 k/uL (0-0.7); Eosinophils % (A) 1 %; HGB 9.6 gm/dL (13.0-17.5); Lymphocytes # (A) 0.5 k/uL (1.0-4.8); Lymphocytes % (A) 5 %; MCH 29.7 pg (25.0-35.0); MCHC 33.1 g/dL (31.0-37.0); MCV 89.8 fL (80.0-100.0); Mean Platelet Volume 8.2; Monocytes # (A) 0.5 k/uL (0-1.0); Monocytes % (A) 5 %; Neutrophils # (A) 9.3 k/uL (1.3-7.7); Neutrophils % (A) 89 %; Platelet Count 188 k/uL (150-450); RBC 3.23 m/uL (4.30-5.90); RDW 14.3 % (11.5-15.5); WBC 10.5 k/uL (3.8-10.6)
[2022-12-23 06:58] LABS: African American GFR (CKD) 27 (>60 ml/min/1.73 sqM); Anion Gap 8 mmol/L; Blood Urea Nitrogen 37 mg/dL (9-20); Calcium 8.1 mg/dL (8.4-10.2); Carbon Dioxide 23 mmol/L (22-30); Chloride 109 mmol/L (98-107); Glucose 114 mg/dL (74-99); Magnesium 1.8 mg/dL (1.6-2.3); Non-African American GFR(CKD) 23 (>60 ml/min/1.73 sqM); Potassium 3.9 mmol/L (3.5-5.1); Sodium 140 mmol/L (137-145)
[2022-12-23] MEDS: CEFEPIME 1 GM in SODIUM CHLORIDE 0.9% 50 ML IVPB SCH ×2 (09:29→21:02)
[2022-12-23] MEDS: metroNIDAZOLE-NS PMX 500 MG in SALINE 1 100ML.BAG IVPB SCH ×2 (10:03→15:31)
[2022-12-23] MEDS: carvediloL 12.5 MG TAB PO SCH ×2 (10:04→17:26)
[2022-12-23] MEDS: APIXABAN 2.5 MG TABLET PO SCH ×2 (10:04→21:02)
[2022-12-23] MEDS: SODIUM BICARBONATE TAB 650 MG TAB PO SCH ×2 (10:04→21:02)
[2022-12-23] MEDS: TAMSULOSIN 0.4 MG CAP.ER.24H PO SCH (10:04)
[2022-12-23] MEDS: MAGNESIUM OXIDE 400 MG TAB PO SCH ×2 (10:04→21:02)
[2022-12-23] MEDS: hydrALAZINE HCL 25 MG TAB PO SCH ×2 (10:04→15:32)
[2022-12-23] MEDS: FAMOTIDINE 20 MG TAB PO SCH (10:05)
--- NOTE | 2022-12-23 10:50 | P.PN ---
Subjective Progress Note Date: 12/23/22 The patient has been in the hospital with weakness. He has had a urinary tract infection. He has been on antibiotics and is clear. He underwent transurethral resection of a bladder tumor by me last week. He cannot explain why he has not had the desire to ambulate. Objective - Vital Signs Vital signs: Vital Signs Temp 98.4 F 12/23/22 07:00 Pulse 72 12/23/22 07:00 Resp 17 12/23/22 07:00 BP 154/94 12/23/22 07:00 Pulse Ox 96 12/23/22 09:06 FiO2 21 12/22/22 08:04 Intake & Output 12/22/22 12/23/22 12/23/22 18:59 06:59 18:59 Intake Total 890 Output Total 800 800 Balance -800 90 Intake: Intake, IV Titration 890 Amount Cefepime 1 gm In Sodium 50 Chloride 0.9% 50 ml @ 12. 5 mls/hr IVPB Q12HR [facility] Rx#:[id number] Dextrose 5% in Water 1, 140 000 ml @ 70 mls/hr IV . [id number] [facility] Rx#:[id number] Potassium Chloride 10 meq 600 In Water For Injection 1 100ml.bag @ 100 mls/hr IVPB Q1H [facility] Rx#: [id number] metroNIDAZOLE-NS PMX 500 100 mg In Saline 1 100ml.bag @ 100 mls/hr IVPB Q8HR [facility] Rx#:[id number] Output: Urine 800 800 Other: Voiding Method Indwelling Catheter Indwelling Catheter Indwelling Catheter # Bowel Movements 1 - Labs CBC & Chem 7: 12/23/22 06:28 12/23/22 06:28 Labs: Abnormal Lab Results - Last 24 Hours (Table) 12/22/22 12/23/22 12/23/22 Range/Units 16:22 06:28 06:28 RBC 3.23 L (4.30-5.90) m/uL Hgb 9.6 L (13.0-17.5) gm/dL Hct 29.0 L (39.0-53.0) % Neutrophils # 9.3 H (1.3-7.7) k/uL Lymphocytes # 0.5 L (1.0-4.8) k/uL Potassium 2.9 L (3.5-5.1) mmol/L Chloride 109 H (98-107) mmol/L BUN 37 H (9-20) mg/dL Creatinine 2.49 H (0.66-1.25) mg/dL Glucose 114 H (74-99) mg/dL Calcium 8.1 L (8.4-10.2) mg/dL Assessment and Plan Assessment: Impression: Weakness. Multiple medical comorbidities. Bladder cancer, muscle invasive Recommendations: With the assist of physical therapy were able to get him ambulate today. The patient does have a muscle invasive bladder cancer and would probably need some radiation in the future if he can tolerate it. He is not a candidate for cystectomy regardless. I will discuss this with the family. Hopefully if the patient continues to mobilize he can be discharged in the next day or 2
--- NOTE | 2022-12-23 13:15 | P.PN ---
Subjective Progress Note Date: 12/23/22 Hospital Course: 82-year-old male with a PMH of A. fib on Eliquis, urinary retention status post indwelling Pena catheter, acute kidney injury, type II DM, hypertension, hyperlipidemia, who presents to the emergency room with complaints of generalized weakness and inability to ambulate. CT brain in the emergency room was unremarkable. Chest x-ray was also unremarkable. EKG revealed A. fib at 77 bpm. Laboratory evaluation was remarkable for leukocytosis of 12.7, and on 8.1, creatinine 3.86 (up from 2.2 from 11/22), with an abnormal UA. Renal ultrasound shows severe left-sided hydronephrosis with mild to moderate right-sided hydronephrosis. UCx + pseudomonas mendiola sensitive. Antibiotics switched from Rocephin to Cefepime. He continues to show intermittent confusion. S/p TURP. CT AP shows continued right hydronephrosis with hydroureter. New finding of diverticulitis with partial SBO. surgery and nephro following. Patient on regular diet now. Renal function improving. Subjective: She is seen and examined at bedside. No acute events overnight. Continues to be delirious. Denies any abdominal pain. Pertinent positives and negatives as discussed above, a complete review of systems was performed and all other systems are negative. Vitals Signs Reviewed. General: non toxic, no distress, appears at stated age, normal weight Derm: no unusual rashes/lesions, warm Head: atraumatic, normocephalic, symmetric Eyes: EOMI, no lid lag, anicteric sclera ENT: Nose and ears atraumatic Neck: No cervical lymphadenopathy, trachea midline, supple Cardiovascular: S1S2 reg, no murmur, no edema Lungs: CTA bilateral, no rhonchi, no rales, no accessory muscle use Abdominal: soft, nontender to palpation, no guarding, + pena catheter, + BS sluggish Ext: no gross muscle atrophy, no contractures, Neuro: no gross focal neuro deficits Psych: Alert, oriented x 1-2. Slow to respond. Data Reviewed Today: Pertinent Labs: WBC 10.5, hemoglobin 9.6, potassium 3.9, creatinine 2.49 Imaging: No new imaging Assessment and Plan: Diverticulitis with partial SBO Delirium UTI, in setting of indwelling Pena Acute kidney injury on chronic kidney disease Hypokalemia, resolved Hypomagnesemia, resolved Hypernatremia, resolved Normocytic anemia, iron deficiency Hyperchloremic metabolic acidosis Chronic conditions: A. fib, hypertension, hyperlipidemia, type II diabetes - Surgery following, on a regular diet, continue antibiotics -Nephrology following, renal function improving, sodium improved -Repeat BMP tomorrow -Continue oral bicarbonate -Continue cefepime and Flagyl -Continue Coreg, hydralazine -Inpatient rehab consulted - updated DVT ppx: Eliquis Code status: Full code Anticipated discharge place: Pending clinical course Anticipated discharge time: Pending clinical course Objective - Vital Signs Vital signs: Vital Signs Temp 98.4 F 12/23/22 07:00 Pulse 72 12/23/22 07:00 Resp 17 12/23/22 07:00 BP 154/94 12/23/22 07:00 Pulse Ox 96 12/23/22 09:06 FiO2 21 12/22/22 08:04 Intake & Output 12/22/22 12/23/22 12/23/22 18:59 06:59 18:59 Intake Total 890 Output Total 800 800 Balance -800 90 Intake: Intake, IV Titration 890 Amount Cefepime 1 gm In Sodium 50 Chloride 0.9% 50 ml @ 12. 5 mls/hr IVPB Q12HR [facility] Rx#:[id number] Dextrose 5% in Water 1, 140 000 ml @ 70 mls/hr IV . [id number] [facility] Rx#:[id number] Potassium Chloride 10 meq 600 In Water For Injection 1 100ml.bag @ 100 mls/hr IVPB Q1H [facility] Rx#: [id number] metroNIDAZOLE-NS PMX 500 100 mg In Saline 1 100ml.bag @ 100 mls/hr IVPB Q8HR [facility] Rx#:[id number] Output: Urine 800 800 Other: Voiding Method Indwelling Catheter Indwelling Catheter Indwelling Catheter # Bowel Movements 1 - Labs CBC & Chem 7: 12/23/22 06:28 12/23/22 06:28 Labs: Abnormal Lab Results - Last 24 Hours (Table) 12/22/22 12/23/22 12/23/22 Range/Units 16:22 06:28 06:28 RBC 3.23 L (4.30-5.90) m/uL Hgb 9.6 L (13.0-17.5) gm/dL Hct 29.0 L (39.0-53.0) % Neutrophils # 9.3 H (1.3-7.7) k/uL Lymphocytes # 0.5 L (1.0-4.8) k/uL Potassium 2.9 L (3.5-5.1) mmol/L Chloride 109 H (98-107) mmol/L BUN 37 H (9-20) mg/dL Creatinine 2.49 H (0.66-1.25) mg/dL Glucose 114 H (74-99) mg/dL Calcium 8.1 L (8.4-10.2) mg/dL
[2022-12-23 13:18] VITALS: RESP 18
--- NOTE | 2022-12-23 16:04 | P.PN ---
Subjective Patient is seen in follow-up for acute kidney injury. Renal function fairly stable. Resting in bed. Oral intake is fair. Drinking more fluids. Sodium level 140 today. Poor historian. Nonoliguric. Vital signs are stable. General: No acute distress. HEENT: Head exam is unremarkable. On nasal cannula. LUNGS: No audible rhonchi or wheezes. HEART: Rate and Rhythm are regular. ABDOMEN: No distention. EXTREMITITES: No edema. Objective - Vital Signs Vital signs: Vital Signs Temp 97.7 F 12/23/22 13:06 Pulse 70 12/23/22 13:06 Resp 18 12/23/22 13:06 BP 158/100 12/23/22 13:06 Pulse Ox 95 12/23/22 13:06 FiO2 21 12/22/22 08:04 Intake & Output 12/22/22 12/23/22 12/23/22 18:59 06:59 18:59 Intake Total 890 Output Total 800 800 Balance -800 90 Weight 81.647 kg Intake: Intake, IV Titration 890 Amount Cefepime 1 gm In Sodium 50 Chloride 0.9% 50 ml @ 12. 5 mls/hr IVPB Q12HR [facility] Rx#:[id number] Dextrose 5% in Water 1, 140 000 ml @ 70 mls/hr IV . [id number] [facility] Rx#:[id number] Potassium Chloride 10 meq 600 In Water For Injection 1 100ml.bag @ 100 mls/hr IVPB Q1H [facility] Rx#: [id number] metroNIDAZOLE-NS PMX 500 100 mg In Saline 1 100ml.bag @ 100 mls/hr IVPB Q8HR [facility] Rx#:[id number] Output: Urine 800 800 Other: Voiding Method Indwelling Catheter Indwelling Catheter Indwelling Catheter # Bowel Movements 1 - Labs CBC & Chem 7: 12/23/22 06:28 12/23/22 06:28 Labs: Abnormal Lab Results - Last 24 Hours (Table) 12/22/22 12/23/22 12/23/22 Range/Units 16:22 06:28 06:28 RBC 3.23 L (4.30-5.90) m/uL Hgb 9.6 L (13.0-17.5) gm/dL Hct 29.0 L (39.0-53.0) % Neutrophils # 9.3 H (1.3-7.7) k/uL Lymphocytes # 0.5 L (1.0-4.8) k/uL Potassium 2.9 L (3.5-5.1) mmol/L Chloride 109 H (98-107) mmol/L BUN 37 H (9-20) mg/dL Creatinine 2.49 H (0.66-1.25) mg/dL Glucose 114 H (74-99) mg/dL Calcium 8.1 L (8.4-10.2) mg/dL Assessment and Plan Plan: Assessment: 1. Acute kidney injury secondary to ATN and obstructive uropathy. Creatinine 3.86 on admission and is down to 2.49 today. Creatinine in August 2022 was 1.1. Nonoliguric. 2. Bilateral hydronephrosis with bladder cancer status post TURBT 12/18/2022. Urology following. Has Garcia catheter. 3. Proteus UTI on antibiotics. 4. Metabolic acidosis secondary to acute kidney injury and IV fluids. Improved. On oral bicarbonate. 5. Benign hypertension. Blood pressure on the higher side. 6. Anemia. Iron deficiency noted - s/p IV iron. On Aranesp. 7. Hypokalemia from poor intake and postobstructive diuresis. replaced. Better. 8. Hypomagnesemia from poor intake. On oral mag-ox. 9. Hypernatremia from lack of oral water intake. status post D5W. Better. Plan: Encouraged oral intake. Continue to monitor renal function and urine output. Increase dose of hydralazine.
--- NOTE | 2022-12-23 16:37 | P.PN ---
Subjective Progress Note Date: 12/23/22 CHIEF COMPLAINT: Ileus HISTORY OF PRESENT ILLNESS: Patient is less confused today. Bedside sitter removed. On lying comfortably in the bed. Denies any abdominal pain. Oral intake is decreased. No bowel movements today. No nausea or vomiting. PHYSICAL EXAM: VITAL SIGNS: Reviewed. GENERAL: Well-developed in no acute distress. ABDOMEN: Soft. Nondistended. Nontender. NEUROLOGIC: Confused ASSESSMENT: 1. Ileus improving. Patient having bowel movements. Doubt bowel obstruction 2. Possible colitis/diverticulitis noted on CAT scan 3. Bladder cancer status post TURBT 4. MARION 5. Hypokalemia improved 6. 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 Signing provider agrees with the documented findings, assessment, and plan of care. Objective - Vital Signs Vital signs: Vital Signs Temp 97.7 F 12/23/22 13:06 Pulse 70 12/23/22 13:06 Resp 18 12/23/22 13:06 BP 158/100 12/23/22 13:06 Pulse Ox 95 12/23/22 13:06 FiO2 21 12/22/22 08:04 Intake & Output 12/22/22 12/23/22 12/23/22 18:59 06:59 18:59 Intake Total 890 Output Total 800 800 Balance -800 90 Weight 81.647 kg Intake: Intake, IV Titration 890 Amount Cefepime 1 gm In Sodium 50 Chloride 0.9% 50 ml @ 12. 5 mls/hr IVPB Q12HR [facility] Rx#:[id number] Dextrose 5% in Water 1, 140 000 ml @ 70 mls/hr IV . [id number] [facility] Rx#:[id number] Potassium Chloride 10 meq 600 In Water For Injection 1 100ml.bag @ 100 mls/hr IVPB Q1H [facility] Rx#: [id number] metroNIDAZOLE-NS PMX 500 100 mg In Saline 1 100ml.bag @ 100 mls/hr IVPB Q8HR [facility] Rx#:[id number] Output: Urine 800 800 Other: Voiding Method Indwelling Catheter Indwelling Catheter Indwelling Catheter # Bowel Movements 1 - Labs CBC & Chem 7: 12/23/22 06:28 12/23/22 06:28 Labs: Abnormal Lab Results - Last 24 Hours (Table) 12/22/22 12/23/22 12/23/22 Range/Units 16:22 06:28 06:28 RBC 3.23 L (4.30-5.90) m/uL Hgb 9.6 L (13.0-17.5) gm/dL Hct 29.0 L (39.0-53.0) % Neutrophils # 9.3 H (1.3-7.7) k/uL Lymphocytes # 0.5 L (1.0-4.8) k/uL Potassium 2.9 L (3.5-5.1) mmol/L Chloride 109 H (98-107) mmol/L BUN 37 H (9-20) mg/dL Creatinine 2.49 H (0.66-1.25) mg/dL Glucose 114 H (74-99) mg/dL Calcium 8.1 L (8.4-10.2) mg/dL
[2022-12-23] MEDS: PRAVASTATIN SODIUM 80 MG TAB PO SCH (21:02)
[2022-12-23] MEDS: hydrALAZINE HCL 50 MG TAB PO SCH (21:02)
[2022-12-24] MEDS: metroNIDAZOLE-NS PMX 500 MG in SALINE 1 100ML.BAG IVPB SCH ×2 (00:09→07:43)
[2022-12-24] MEDS: ACETAMINOPHEN TAB 325 MG TAB PO PRN (03:17)
[2022-12-24] MEDS: APIXABAN 2.5 MG TABLET PO SCH (07:43)
[2022-12-24] MEDS: SODIUM BICARBONATE TAB 650 MG TAB PO SCH (07:43)
[2022-12-24] MEDS: MAGNESIUM OXIDE 400 MG TAB PO SCH (07:43)
[2022-12-24] MEDS: TAMSULOSIN 0.4 MG CAP.ER.24H PO SCH (07:43)
[2022-12-24] MEDS: FAMOTIDINE 20 MG TAB PO SCH (07:43)
[2022-12-24] MEDS: carvediloL 12.5 MG TAB PO SCH (07:43)
[2022-12-24] MEDS: hydrALAZINE HCL 50 MG TAB PO SCH (07:43)
[2022-12-24] MEDS: CEFEPIME 1 GM in SODIUM CHLORIDE 0.9% 50 ML IVPB SCH (08:27)
--- NOTE | 2022-12-24 08:52 | P.CONS ---
History of Present Illness - Reason for Consult Consult date: 12/24/22 rehab recommendations - Chief Complaint debility - History of Present Illness Mr Dago Lyman is an 82 y/o right handed, male, who lives with his in a two story home, with 3 IVIS. Patient's bed and bath is on the first floor. Prior to admission, he was ambulating with an assistive device ( cane or walker). He was independent for basic/advanced ADLs. 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 Support system: / family ( 3 children local). performs cooking and cleaning. DME at home includes 4ww, cane, shower chair. Patient presented to the hospital on December 13, 2022 with complaints of generalized weakness. Per records, patient has had issues with weakness and decreased ADLs since August. He did have a recent IPR stay in October. He was diagnosed with a proteus and pseudomonas UTI, started on abx. He was seen by urology, has had a chronic pena as he was supposed to have a procedure months ago but had been put on hold. He has a history of bladder cancer. He did have some issues with confusion throuhgout his stay, but has now cleared. There was concern for an Ileus, was seen by surgical team, was started on clear liquid diet and had improvement. PM&R consulted for rehab recommendations. Patient min assist with bed mobility and transfers, ambulated 75 ft. 12/24/22: Patient states he is feeling better, hoping to go home. He denies CP, SOB, and abdominal pain. Reports he has not had a BM in a week, although notes suggest otherwise. He has a pena catheter with yellow draining urine. He has no current complaints of pain. Discussed with patient that he does not meet the medical complexity for IPR, would recommend [facility] or [facility]. Patient declines [facility]. Review of Systems reviewed, negative unless stated above in HPI Past Medical History Past Medical History: Atrial Fibrillation, Coronary Artery Disease (CAD), Hypertension, Osteoarthritis (OA), Pneumonia, Prostate Disorder Additional Past Medical History / Comment(s): pneumonia May 2020 after hernia surgery Last Myocardial Infarction Date:: unknown History of Any Multi-Drug Resistant Organisms: None Reported Past Surgical History: Cholecystectomy, Coronary Bypass/CABG, Heart Catheterization With Stent, Hernia Repair, Joint Replacement Additional Past Surgical History / Comment(s): triple bypass 14 years ago, aortic aneurysm repair, rt hip replacement, left inguinal hernia repair, unsure how many cardiac stents Cystoscopy on 10/26/22 (chronic pena placed) Past Anesthesia/Blood Transfusion Reactions: No Reported Reaction Date of Last Stent Placement:: unknown Past Psychological History: No Psychological Hx Reported Smoking Status: Former smoker Past Alcohol Use History: None Reported Additional Past Alcohol Use History / Comment(s): quit smoking 20 yrs. ago, 1ppd for 25 yrs. Past Drug Use History: None Reported - Past Family History Mother Family Medical History: No Reported History Father Family Medical History: Congestive Heart Failure (CHF) (Father at the age of 78 from CHF.), Hypertension Additional Family Medical History / Comment(s): Patient states that his parents never went to the doctor. He thinks his father of hypertensive disease. He does not know much about his mother. Denies any significant medical history in siblings, is and has kids with no significant medical. lives of at home. Brother(s) Family Medical History: No Reported History (patient has one brother no major issues.) Sister(s) Family Medical History: No Reported History (patient has 2 sisters no major medical problems) Son(s) Family Medical History: No Reported History (patient has 2 sons ok.) Daughter(s) Family Medical History: No Reported History (one daughter ok.) Medications and Allergies Home Medications Medication Instructions Recorded Confirmed Type Pravastatin Sodium [Pravachol] 40 mg PO HS 07/21/17 12/14/22 History amLODIPine [Norvasc] 5 mg PO DAILY 05/12/20 12/14/22 History Tamsulosin HCl [Flomax] 0.4 mg PO DAILY 10/29/22 12/14/22 History Apixaban [Eliquis] 2.5 mg PO BID #60 tab 11/03/22 12/14/22 Rx Pravastatin Sodium [Pravachol] 80 mg PO HS #60 tab 11/03/22 12/14/22 Rx carvediloL [Coreg*] 12.5 mg PO BID-W/MEALS #60 tab 11/03/22 12/14/22 Rx Ciprofloxacin HCl [Cipro] 500 mg PO DAILY 5 Days #5 tab 12/19/22 Rx Allergies Allergy/AdvReac Type Severity Reaction Status Date / Time No Known Allergies Allergy Verified 12/14/22 08:03 Physical Exam Vitals: Vital Signs Temp Pulse Resp BP Pulse Ox 12/24/22 08:00 97.7 F 76 18 146/83 96 12/24/22 02:26 97.5 F L 79 18 134/81 96 12/23/22 19:27 97.7 F 61 18 152/90 98 12/23/22 17:00 74 147/90 12/23/22 13:06 97.7 F 70 18 158/100 95 12/23/22 09:06 96 Intake and Output 12/23/22 12/24/22 12/24/22 22:59 06:59 14:59 Intake Total 1280 Output Total 1200 400 Balance 80 -400 Intake: Oral 1280 Output: Urine 1200 400 Other: Voiding Method Indwelling Catheter General: Well developed, thin elderly male, appears slightly fatigued and weak HEENT: NC/AT, COUNCIL neck supple Cardiovascular: B/L calves are supple, nontender, no cords, without peripheral edema, no cardiac distress Respiratory: Even and unlabored breathing on RA Abdomen: Soft, nontender, nondistended Genitourinary: Pena intact, draining yellow/straw colored urine Musculoskeletal: Functional ROM although generalized weakness MMT UE Sh Abd EE EF FABD WE HG Right 4 4 4+ 4+ Left 4 4 4+ 4+ MMT LE HF KE DF EHL Right 4- 4 5 5 Left 4- 4 5 5 Skin: Skin intact where visible to head, neck, and bilateral upper and lower extremities Neurological: Patient alert and oriented 2-3, with prompts. Cranial nerves grossly intact. Intermittent slow processing at times which has been his baseline. Speech is clear and fluent Reflexes Biceps Triceps Brachioradialis Patella Achilles Babinski Hoffmans Right 2 2 2 2 1 - Left 2 2 2 2 1 - Sensation: sensation intact to light touch Psychiatric: Mood calm, affect flat, cooperative. Results CBC & Chem 7: 12/23/22 06:28 12/23/22 06:28 Assessment and Plan Assessment: # Generalized weakness and impaired gait and ADLs -PT/OT # UTI, + pseudomonas and proteus -Cefepime -pena per urology management, on flomax # Chronic pena catheter, history of bladder cancer # Atrial Fibrillation #Coronary Artery Disease (CAD) # Comorbidities: Hypertension, Osteoarthritis (OA), Pneumonia, Prostate Disorder, hernia surgery, Cholecystectomy, Coronary Bypass/CABG, Heart Catheterization With Stent, Hernia Repair, Joint Replacement #Pain Management -Tylenol 650 mg Q 6 prn # DVT proph -Eliquis 2.5 mg BID # your medical dx and management Discharge recommendation: Patient does not meet the medical complexity for IPR but would still benefit from a structure rehab program, Recommending [facility] vs [facility]. Patient declines [facility]. Patient seen and examined in coordination with Dr Shanae Rutledge Thank you for this consultation.
--- NOTE | 2022-12-24 09:24 | P.PN ---
Subjective Patient is seen in follow-up for acute kidney injury. Renal function fairly stable. Sodium level stable. Appetite better. Mentation also improved. Vital signs are stable. General: No acute distress. HEENT: Head exam is unremarkable. On nasal cannula. LUNGS: No audible rhonchi or wheezes. HEART: Rate and Rhythm are regular. ABDOMEN: No distention. EXTREMITITES: No edema. Objective - Vital Signs Vital signs: Vital Signs Temp 97.7 F 12/24/22 08:00 Pulse 76 12/24/22 08:00 Resp 18 12/24/22 08:00 BP 146/83 12/24/22 08:00 Pulse Ox 96 12/24/22 08:00 FiO2 21 12/22/22 08:04 Intake & Output 12/23/22 12/24/22 12/24/22 18:59 06:59 18:59 Intake Total 1280 Output Total 1200 400 Balance 80 -400 Weight 81.647 kg Intake: Oral 1280 Output: Urine 1200 400 Other: Voiding Method Indwelling Catheter Indwelling Catheter - Labs CBC & Chem 7: 12/23/22 06:28 12/23/22 06:28 Assessment and Plan Plan: Assessment: 1. Acute kidney injury secondary to ATN and obstructive uropathy. Creatinine 3.86 on admission and is down to 2.49 today. Creatinine in August 2022 was 1.1. Nonoliguric. 2. Bilateral hydronephrosis with bladder cancer status post TURBT 12/18/2022. Urology following. Has Garcia catheter. 3. Proteus UTI s/p antibiotics. 4. Metabolic acidosis secondary to acute kidney injury and IV fluids. Improv ed. On oral bicarbonate. 5. Benign hypertension. Stable. 6. Anemia. Iron deficiency noted - s/p IV iron. On Aranesp. 7. Hypokalemia from poor intake and postobstructive diuresis. Replaced. Be tter. 8. Hypomagnesemia from poor intake. On oral mag-ox. 9. Hypernatremia from lack of oral water intake. status post D5W. Sodium level normal. Plan: Encouraged oral intake. Continue to monitor renal function and urine output.
--- NOTE | 2022-12-24 12:03 | P.DS ---
Providers Date of admission: 12/14/22 11:50 Expected date of discharge: 12/24/22 Attending physician: Ramonita Adam MD Consults: 12/14/22 00:58 Consult Physician Routine Consulting Provider: Pricila Paz Consult Reason/Comments: Acute on chronic renal failure Do you want consulting provider notified?: Yes 12/14/22 05:26 Consult Physician Urgent Consulting Provider: Morteza Boss Consult Reason/Comments: urinary retentionn Do you want consulting provider notified?: Yes 12/20/22 16:15 Consult Physician Routine Consulting Provider: Oliver Momin Consult Reason/Comments: partial SBO, diverticulitis Do you want consulting provider notified?: Yes 12/23/22 10:45 Consult Physician Urgent Consulting Provider: Cash Barrientos Consult Reason/Comments: in pt rehab Do you want consulting provider notified?: Yes Primary care physician[facility] Course: Discharge Diagnosis: Pseudomonas UTI, in setting of indwelling Pena Acute kidney injury on chronic kidney disease Severe left-sided hydronephrosis with mild to moderate right-sided hydronephrosis status post TURP Muscle invasive bladder cancer Diverticulitis Ileus Delirium Hypokalemia Hypomagnesemia Hypernatremia Normocytic anemia, iron deficiency Hyperchloremic metabolic acidosis Hospital Course: 82-year-old male with a PMH of A. fib on Eliquis, urinary retention status post indwelling Pena catheter, acute kidney injury, type II DM, hypertension, hyperlipidemia, who presents to the emergency room with complaints of generalized weakness and inability to ambulate. CT brain in the emergency room was unremarkable. Chest x-ray was also unremarkable. EKG revealed A. fib at 77 bpm. Laboratory evaluation was remarkable for leukocytosis of 12.7, and on 8.1, creatinine 3.86 (up from 2.2 from 11/22), with an abnormal UA. Renal ultrasound shows severe left-sided hydronephrosis with mild to moderate right-sided hydronephrosis. UCx + pseudomonas mendiola sensitive. Antibiotics switched from Rocephin to Cefepime. He continues to show intermittent confusion. S/p TURP. CT AP shows continued right hydronephrosis with hydroureter. New finding of diverticulitis with partial SBO. surgery and nephro following. Patient on regular diet now. Having bowel movements. Abdominal pain improved. Renal function improving. Mental status improved. Evaluated by physiatry, does not meet inpatient rehab criteria. Patient does not want to go to subacute rehab. Will be discharged home with home care. Cefepime course completed. Will complete 7 day course of flagyl. He will follow-up with urology, nephrology and PCP. Patient seen and examined at bedside. Vital signs reviewed and stable. General: non toxic, no distress, appears at stated age, normal weight Derm: no unusual rashes/lesions, warm Head: atraumatic, normocephalic, symmetric Eyes: EOMI, no lid lag, anicteric sclera ENT: Nose and ears atraumatic Neck: No cervical lymphadenopathy, trachea midline, supple Cardiovascular: S1S2 reg, no murmur, no edema Lungs: CTA bilateral, no rhonchi, no rales, no accessory muscle use Abdominal: soft, nontender to palpation, no guarding, + pena catheter Ext: no gross muscle atrophy, no contractures, Neuro: no gross focal neuro deficits Psych: Alert, oriented x 2 A total of 33 minutes of time were spent preparing this complex discharge summary. Patient was discharged on 12/25/19. 12:02 . Patient Condition at Discharge: Stable Plan - Discharge Summary Discharge Rx Participant: No New Discharge Prescriptions: New Magnesium Oxide [Mag-Ox] 400 mg PO BID #60 tab hydrALAZINE HCL [Apresoline] 50 mg PO TID #90 tab Famotidine [Pepcid] 20 mg PO DAILY #60 tab Sodium Bicarbonate Tab 650 mg PO BID #60 tab metroNIDAZOLE [Flagyl] 500 mg PO TID #9 tab Continue carvediloL [Coreg*] 12.5 mg PO BID-W/MEALS #60 tab Apixaban [Eliquis] 2.5 mg PO BID #60 tab Pravastatin Sodium [Pravachol] 80 mg PO HS #60 tab Tamsulosin HCl [Flomax] 0.4 mg PO DAILY Discontinued Pravastatin Sodium [Pravachol] 40 mg PO HS amLODIPine [Norvasc] 5 mg PO DAILY Discharge Medication List Tamsulosin HCl [Flomax] 0.4 mg PO DAILY 10/29/22 [History] Apixaban [Eliquis] 2.5 mg PO BID #60 tab 11/03/22 [Rx] Pravastatin Sodium [Pravachol] 80 mg PO HS #60 tab 07/04/23 [Rx] carvediloL [Coreg*] 12.5 mg PO BID-W/MEALS #60 tab 11/03/22 [Rx] Famotidine [Pepcid] 20 mg PO DAILY #60 tab 12/24/22 [Rx] Magnesium Oxide [Mag-Ox] 400 mg PO BID #60 tab 12/24/22 [Rx] Sodium Bicarbonate Tab 650 mg PO BID #60 tab 12/24/22 [Rx] hydrALAZINE HCL [Apresoline] 50 mg PO TID #90 tab 12/24/22 [Rx] metroNIDAZOLE [Flagyl] 500 mg PO TID #9 tab 12/24/22 [Rx] Follow up Appointment(s)/Referral(s): Kvng Saeed DO [Primary Care Provider] - 1-2 days Betito Bravo MD [STAFF PHYSICIAN] - 1 Week [facility] Visiting Nurse, [NON-STAFF] - 1 Week Kirby Kwok DO [STAFF PHYSICIAN] - 1 Week Patient Instructions/Handouts: Acute Kidney Injury (DC), Encephalopathy (DC) Activity/Diet/Wound Care/Special Instructions: Please see your PCP, urologist, and sieve repairer. Discharge Disposition: TRANSFER TO SNF/ECF
[2022-12-24 12:34] VITALS: BP 143/76; PULSE 70; TEMP 97.5
--- NOTE | 2022-12-24 14:16 | P.PN ---
Subjective Progress Note Date: 12/24/22 CHIEF COMPLAINT: Ileus HISTORY OF PRESENT ILLNESS: Patient has no new complaints. Per nursing staff he is eating more. No abdominal pain. No bowel movement 2 days. Afebrile. Patient scheduled for discharge to [facility] today. PHYSICAL EXAM: VITAL SIGNS: Reviewed. GENERAL: Well-developed in no acute distress. ABDOMEN: Soft. Nondistended. Nontender. NEUROLOGIC: Confused ASSESSMENT: 1. Ileus improving. Patient having bowel movements. Doubt bowel obstruction 2. Possible colitis/diverticulitis noted on CAT scan 3. Bladder cancer status post TURBT 4. MARION 5. Hypokalemia improved 6. Hyponatremia improved PLAN: -Okay to discharge from surgical standpoint -Continue regular -Increase activity level -Antibiotics per medicine service -No plan for endoscopies at this time Physician Slide Developer note has been reviewed by physician. Signing provider agrees with the documented findings, assessment, and plan of care. Objective - Vital Signs Vital signs: Vital Signs Temp 97.5 F L 12/24/22 12:32 Pulse 70 12/24/22 12:32 Resp 18 12/24/22 12:32 BP 143/76 12/24/22 12:32 Pulse Ox 96 12/24/22 12:32 FiO2 21 12/22/22 08:04 Intake & Output 12/23/22 12/24/22 12/24/22 18:59 06:59 18:59 Intake Total 1280 Output Total 1200 400 Balance 80 -400 Weight 81.647 kg Intake: Oral 1280 Output: Urine 1200 400 Other: Voiding Method Indwelling Catheter Indwelling Catheter Indwelling Catheter - Labs CBC & Chem 7: 12/23/22 06:28 12/23/22 06:28
[2022-12-25 01:36] LABS: BUN/Creat Ratio 12.04 Ratio (12.00-20.00); Blood Urea Nitrogen 32.5 mg/dL (9.0-27.0); Calcium 8.5 mg/dL (8.7-10.3); Carbon Dioxide 22.9 mmol/L (21.6-31.8); Chloride 106 mmol/L (96-109); Glucose 116 mg/dL (70-110); Magnesium 1.8 mg/dL (1.5-2.4); Potassium 3.5 mmol/L (3.5-5.5); Sodium 140 mmol/L (135-145)
== END 2022-12-24 14:07 | disposition home health service (06) | DRG 668 ==
LOC: EC 21:41 → 5NMEDONC 12-14 00:59 → OBSVTOIN 12-14 11:50 → 5NMEDONC 12-18 16:19
PROVIDERS: ADMIT Internal Medicine; ATTEND Internal Medicine
PROC: 0TBB8ZZ Excision of Bladder, Via Natural or Artificial Opening Endoscopic (ICD-10-PCS; principal; 2022-12-18 12:00)
DX: T83.518A Infection and inflammatory reaction due to other urinary catheter, initial encounter (principal); N17.0 Acute kidney failure with tubular necrosis; E87.0 Hyperosmolality and hypernatremia; E87.1 Hypo-osmolality and hyponatremia; E87.29 Other acidosis; I13.0 Hypertensive heart and chronic kidney disease with heart failure and stage 1 through stage 4 chronic kidney disease, or unspecified chronic kidney disease; I50.22 Chronic systolic (congestive) heart failure; K56.600 Partial intestinal obstruction, unspecified as to cause; K57.92 Diverticulitis of intestine, part unspecified, without perforation or abscess without bleeding; K56.7 Ileus, unspecified; N13.6 Pyonephrosis; E86.0 Dehydration; B96.4 Proteus (mirabilis) (morganii) as the cause of diseases classified elsewhere; B96.5 Pseudomonas (aeruginosa) (mallei) (pseudomallei) as the cause of diseases classified elsewhere; C67.9 Malignant neoplasm of bladder, unspecified; D50.9 Iron deficiency anemia, unspecified; D63.8 Anemia in other chronic diseases classified elsewhere; E11.22 Type 2 diabetes mellitus with diabetic chronic kidney disease; N18.9 Chronic kidney disease, unspecified; D63.1 Anemia in chronic kidney disease; Z79.01 Long term (current) use of anticoagulants; R26.9 Unspecified abnormalities of gait and mobility; E78.5 Hyperlipidemia, unspecified; E83.42 Hypomagnesemia; E83.51 Hypocalcemia; E87.6 Hypokalemia; E87.8 Other disorders of electrolyte and fluid balance, not elsewhere classified; I25.10 Atherosclerotic heart disease of native coronary artery without angina pectoris; I48.91 Unspecified atrial fibrillation; N40.1 Benign prostatic hyperplasia with lower urinary tract symptoms; R33.8 Other retention of urine; Z28.310 Unvaccinated for COVID-19; Z20.822 Contact with and (suspected) exposure to COVID-19; Z28.21 Immunization not carried out because of patient refusal; Z71.3 Dietary counseling and surveillance; M19.90 Unspecified osteoarthritis, unspecified site; Z95.1 Presence of aortocoronary bypass graft; Z96.641 Presence of right artificial hip joint; Z90.79 Acquired absence of other genital organ(s); Z82.49 Family history of ischemic heart disease and other diseases of the circulatory system; Z79.899 Other long term (current) drug therapy
CPT/HCPCS: 36415; 70450; 71046; 74176; 76770; 80048; 80053; 81001; 83540; 83550; 83605; 83735; 84132; 84295; 84443; 84484; 85025; 85027; 85610; 85730; 87040; 87077; 87086; 87186; 87635; 88307; 93005; 94760; 96361; 96365; 99285

== ENCOUNTER 2022-12-29 15:32 | Emergency (ER) | payer MEDICARE, BC ==
--- NOTE | 2022-12-29 16:09 | ED ---
General Adult HPI - General Chief complaint: Extremity Injury, Upper Stated complaint: L Arm Pain Time Seen by Provider: 12/29/22 15:49 Source: patient, EMS, RN notes reviewed Mode of arrival: EMS Limitations: no limitations - History of Present Illness Initial comments: 82-year-old male presents to the emergency department chief complaint of left wrist pain and lump that started today. He states that he noticed it this morning and then noticed some swelling started to develop. He states he has not noticed this before. Denies any prior or new injury. He denies any redness to the area. Denies falling. - Related Data Home Medications Medication Instructions Recorded Confirmed Tamsulosin HCl [Flomax] 0.4 mg PO DAILY 10/29/22 12/14/22 Previous Rx's Medication Instructions Recorded Apixaban [Eliquis] 2.5 mg PO BID #60 tab 11/03/22 Pravastatin Sodium [Pravachol] 80 mg PO HS #60 tab 11/03/22 carvediloL [Coreg*] 12.5 mg PO BID-W/MEALS #60 tab 11/03/22 Famotidine [Pepcid] 20 mg PO DAILY #60 tab 12/24/22 Magnesium Oxide [Mag-Ox] 400 mg PO BID #60 tab 12/24/22 Sodium Bicarbonate Tab 650 mg PO BID #60 tab 12/24/22 hydrALAZINE HCL [Apresoline] 50 mg PO TID #90 tab 12/24/22 metroNIDAZOLE [Flagyl] 500 mg PO TID #9 tab 12/24/22 Allergies Allergy/AdvReac Type Severity Reaction Status Date / Time No Known Allergies Allergy Verified 12/29/22 15:48 Review of Systems ROS Statement: Those systems with pertinent positive or pertinent negative responses have been documented in the HPI. ROS Other: All systems not noted in ROS Statement are negative. Past Medical History Past Medical History: Atrial Fibrillation, Coronary Artery Disease (CAD), Hypertension, Osteoarthritis (OA), Pneumonia, Prostate Disorder Additional Past Medical History / Comment(s): pneumonia May 2020 after hernia surgery Last Myocardial Infarction Date:: unknown History of Any Multi-Drug Resistant Organisms: None Reported Past Surgical History: Cholecystectomy, Coronary Bypass/CABG, Heart Catheterization With Stent, Hernia Repair, Joint Replacement Additional Past Surgical History / Comment(s): triple bypass 14 years ago, aortic aneurysm repair, rt hip replacement, left inguinal hernia repair, unsure how many cardiac stents Cystoscopy on 10/26/22 (chronic pena placed) Past Anesthesia/Blood Transfusion Reactions: No Reported Reaction Date of Last Stent Placement:: unknown Past Psychological History: No Psychological Hx Reported Smoking Status: Former smoker Past Alcohol Use History: None Reported Past Drug Use History: None Reported - Past Family History Mother Family Medical History: No Reported History Father Family Medical History: Congestive Heart Failure (CHF) (Father at the age of 78 from CHF.), Hypertension Additional Family Medical History / Comment(s): Patient states that his parents never went to the doctor. He thinks his father of hypertensive disease. He does not know much about his mother. Denies any significant medical history in siblings, is and has kids with no significant medical. lives of at home. Brother(s) Family Medical History: No Reported History (patient has one brother no major issues.) Sister(s) Family Medical History: No Reported History (patient has 2 sisters no major medical problems) Son(s) Family Medical History: No Reported History (patient has 2 sons ok.) Daughter(s) Family Medical History: No Reported History (one daughter ok.) General Exam Limitations: physical limitation (hard of hearing) General appearance: alert, in no apparent distress Head exam: Present: atraumatic, normocephalic, normal inspection Eye exam: Present: normal appearance ENT exam: Present: normal exam, mucous membranes moist Neck exam: Present: normal inspection. Absent: tenderness, meningismus, lymphadenopathy Respiratory exam: Present: normal lung sounds bilaterally. Absent: respiratory distress, wheezes, rales, rhonchi, stridor Cardiovascular Exam: Present: regular rate, normal rhythm, normal heart sounds. Absent: systolic murmur, diastolic murmur, rubs, gallop, clicks Extremities exam: Present: tenderness (Dorsal aspect of the left wrist), other (Radial pulses 2+, soft tissue swelling to the lateral dorsal aspect of the left wrist). Absent: normal inspection, full ROM (Decreased range of motion due to pain) Back exam: Present: normal inspection Neurological exam: Present: alert, oriented X3 Psychiatric exam: Present: normal affect, normal mood Skin exam: Present: warm, dry, intact, normal color, other (Soft tissue swelling to the dorsolateral aspect of the left wrist). Absent: rash Course Vital Signs 12/29/22 15:40 Temperature 97.3 F L Pulse Rate 88 Respiratory 16 Rate Blood Pressure 125/71 O2 Sat by Pulse 97 Oximetry Medical Decision Making - Medical Decision Making Was pt. sent in by a medical professional or institution (, PA, LEAD PRODUCER, urgent care, hospital, or intermediate...) When possible be specific @ -AFC Did you speak to anyone other than the patient for history (EMS, parent, family, police, friend...)? What history was obtained from this source @ -No Did you review nursing and triage notes (agree or disagree)? Why? @ -I reviewed and agree with nursing and triage notes Were old charts reviewed (outside hosp., previous admission, EMS record, old EKG, old radiological studies, urgent care reports/EKG's, intermediate records)? Report findings @ -No old charts were reviewed Differential Diagnosis (chest pain, altered mental status, abdominal pain women, abdominal pain men, vaginal bleeding, weakness, fever, dyspnea, syncope, headache, dizziness, GI bleed, back pain, seizure, CVA, palpatations, mental health, musculoskeletal)? @ -Differential Musculoskeletal Muscular strain, contusion, ligament sprain, fracture, arthritis, septic arthritis, bursitis, cellulitis, muscle spasm, nerve compression, DVT, arterial occlusion, herpes zoster, electrolyte abnormality, tumor.... This is not meant to be in all inclusive list EKG interpreted by me (3pts min.). @ -None X-rays interpreted by me (1pt min.). @ -X-ray left wrist shows severe osteoarthritis CT interpreted by me (1pt min.). @ -None done U/S interpreted by me (1pt. min.). @ -None done What testing was considered but not performed or refused? (CT, X-rays, U/S, labs)? Why? @ -None What meds were considered but not given or refused? Why? @ -None Did you discuss the management of the patient with other professionals (professionals i.e. , PA, LEAD PRODUCER, lab, RT, psych nurse, social media senior associate, police and fire dispatcher, teacher, emergency communications officer, field nurse case manager)? Give summary @ -No Was smoking cessation discussed for >3mins.? @ -No Was critical care preformed (if so, how long)? @ -No Were there social determinants of health that impacted care today? How? (Homelessness, low income, unemployed, alcoholism, drug addiction, transportation, low edu. Level, literacy, decrease access to med. care, half-way, rehab)? @ -No Was there de-escalation of care discussed even if they declined (Discuss DNR or withdrawal of care, Hospice)? DNR status @ -No What co-morbidities impacted this encounter? (DM, HTN, Smoking, COPD, CAD, Cancer, CVA, ARF, Chemo, Hep., AIDS, mental health diagnosis, sleep apnea, mor bid obesity)? @ -None Was patient admitted / discharged? Hospital course, mention meds given and route, prescriptions, significant lab abnormalities, going to OR and other pertinent info. @ -Discharged. Patient presented emergency department chief complaint of left wrist pain with no known injury or trauma. 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 Patient advised to take Tylenol as needed for pain and follow-up with orthopedics on outpatient basis for further management. Patient is stable for discharge. Case discussed with attending, Dr. Villanueva Undiagnosed new problem with uncertain prognosis? @ -No Drug Therapy requiring intensive monitoring for toxicity (Heparin, Nitro, Insulin, Cardizem)? @ -No Were any procedures done? @ -No Diagnosis/symptom? @ -osteoarthritis left wrist Acute, or Chronic, or Acute on Chronic? @ -chronic Uncomplicated (without systemic symptoms) or Complicated (systemic symptoms)? @ -uncomplicated Side effects of treatment? @ -No Exacerbation, Progression, or Severe Exacerbation? @ -No Poses a threat to life or bodily function? How? (Chest pain, [place], [place], pneumonia, PE, COPD, DKA, ARF, appy, cholecystitis, CVA, Diverticulitis, Homicidal, Suicidal, threat to staff... and all critical care pts) @ -No Diagnosis/symptom? @ -Dorsal left wrist swelling Acute, or Chronic, or Acute on Chronic? @ -acute Uncomplicated (without systemic symptoms) or Complicated (systemic symptoms)? @ -uncomplicated Side effects of treatment? @ -none Exacerbation, Progression, or Severe Exacerbation] @ -no Poses a threat to life or bodily function? @ -no Disposition Clinical Impression: Osteoarthritis of wrist, Left wrist pain Disposition: HOME SELF-CARE Condition: Stable Instructions (If sedation given, give patient instructions): Wrist Injury (ED) Additional Instructions: Take Tylenol for pain as needed. Follow up with orthopedics for further intervention. Return to the emergency department for new or worsening symptoms. Is patient prescribed a controlled substance at d/c from ED?: No Referrals: Kvng Saeed DO [Primary Care Provider] - 1-2 days Lamont Calderon MD [STAFF PHYSICIAN] - 1-2 days Time of Disposition: 17:52
--- NOTE | 2022-12-29 16:38 | XR ---
EXAMINATION TYPE: XR wrist complete LT DATE OF EXAM: 12/29/2022 CLINICAL HISTORY: pain TECHNIQUE: Frontal, lateral and oblique images of the left wrist are obtained. COMPARISON: None. FINDINGS: There is no acute fracture/dislocation evident. There is sclerosis of the proximal pole of the scaphoid with distal pole irregularity of reflect chronic fracture with osteonecrosis. Severe de generative narrowing radiocarpal and intercarpal joint spaces. Widening of the scapholunate ligament may reflect ligamentous tear. Soft tissue swelling noted dorsum of the left wrist. IMPRESSION: Acute fracture seen with certainty. 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 Scapholunate ligamentous tear suspected. Severe degenerative osteoarthritis.
[2022-12-29 18:54] VITALS: BP 110/82; PULSE 85; RESP 18; TEMP 97.8
== END 2022-12-29 18:52 | disposition home or self-care (01) ==
LOC: EC 15:32
DX: M19.032 Primary osteoarthritis, left wrist (principal); I10 Essential (primary) hypertension; I25.10 Atherosclerotic heart disease of native coronary artery without angina pectoris; Z79.899 Other long term (current) drug therapy; Z87.891 Personal history of nicotine dependence; Z95.5 Presence of coronary angioplasty implant and graft
CPT/HCPCS: 99284

== ENCOUNTER 2023-01-01 10:23 | Inpatient (IN) | payer MEDICARE, BC ==
[2023-01-01] MEDS ORDERED: SODIUM CHLORIDE 0.9% 1,000 ML IV STA ×2 (10:27→11:59)
[2023-01-01] MEDS ORDERED: ONDANSETRON 4 MG/2 ML VIAL IVP STA (10:31)
--- NOTE | 2023-01-01 10:41 | ED ---
Nausea/Vomiting/Diarrhea HPI - General Chief complaint: Nausea/Vomiting/Diarrhea Stated complaint: Vomiting Time Seen by Provider: 01/01/23 10:27 Source: EMS, RN notes reviewed, old records reviewed (from [facility]) - History of Present Illness Initial comments: Patient is an 82-year-old male presenting to the emergency room via EMS from [facility] on the morning with concerns regarding nausea and vomiting. According to EMS he was having episodes of dark colored vomit which he has not had since EMS has seen him. He is complaining of nausea. 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 He is complaining of abdominal tenderness on exam. She denies any other complaints or concerns. Records from [facility] on the [place] did not reveal any episodes of fevers. His past medical and surgical history as listed below was reviewed. - Related Data Home Medications Medication Instructions Recorded Confirmed Tamsulosin HCl [Flomax] 0.4 mg PO DAILY 10/29/22 01/01/23 Ondansetron [Zofran] 4 mg PO Q8H PRN 01/01/23 01/01/23 carvediloL [Coreg*] 12.5 mg PO BID 01/01/23 01/01/23 hydrALAZINE HCL [Apresoline] 50 mg PO TID@0900,1300,2100 01/01/23 01/01/23 Previous Rx's Medication Instructions Recorded Apixaban [Eliquis] 2.5 mg PO BID #60 tab 11/03/22 Pravastatin Sodium [Pravachol] 80 mg PO HS #60 tab 11/03/22 Famotidine [Pepcid] 20 mg PO DAILY #60 tab 12/24/22 Magnesium Oxide [Mag-Ox] 400 mg PO BID #60 tab 12/24/22 Sodium Bicarbonate Tab 650 mg PO BID #60 tab 12/24/22 Allergies Allergy/AdvReac Type Severity Reaction Status Date / Time No Known Allergies Allergy Verified 01/01/23 14:37 Review of Systems ROS Statement: Those systems with pertinent positive or pertinent negative responses have been documented in the HPI. ROS Other: All systems not noted in ROS Statement are negative. 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) Additional Past Medical History / Comment(s): pneumonia May 2020 after hernia surgery Last Myocardial Infarction Date:: unknown History of Any Multi-Drug Resistant Organisms: None Reported Past Surgical History: Cholecystectomy, Coronary Bypass/CABG, Heart Catheterization With Stent, Hernia Repair, Joint Replacement Additional Past Surgical History / Comment(s): triple bypass 14 years ago, aortic aneurysm repair, rt hip replacement, left inguinal hernia repair, unsure how many cardiac stents Cystoscopy on 10/26/22 (chronic pena placed) Past Anesthesia/Blood Transfusion Reactions: No Reported Reaction Date of Last Stent Placement:: unknown Past Psychological History: No Psychological Hx Reported Smoking Status: Former smoker Past Alcohol Use History: None Reported Past Drug Use History: None Reported - Past Family History Mother Family Medical History: No Reported History Father Family Medical History: Congestive Heart Failure (CHF) (Father at the age of 78 from CHF.), Hypertension Additional Family Medical History / Comment(s): Patient states that his parents never went to the doctor. He thinks his father of hypertensive disease. Deanna tejeda does not know much about his mother. Denies any significant medical history in siblings, is and has kids with no significant medical. lives of at home. Brother(s) Family Medical History: No Reported History (patient has one brother no major issues.) Sister(s) Family Medical History: No Reported History (patient has 2 sisters no major medical problems) Son(s) Family Medical History: No Reported History (patient has 2 sons ok.) Daughter(s) Family Medical History: No Reported History (one daughter ok.) General Exam Limitations: altered mental status General appearance: alert, in no apparent distress Head exam: Present: atraumatic, normocephalic, normal inspection Eye exam: Present: normal appearance, PERRL, EOMI, periorbital swelling (trace lower chronic). Absent: scleral icterus, conjunctival injection ENT exam: Present: normal exam, mucous membranes moist Neck exam: Present: normal inspection Respiratory exam: Present: normal lung sounds bilaterally, rhonchi (scattered clears with cough). Absent: respiratory distress, wheezes, rales, chest wall tenderness, accessory muscle use Cardiovascular Exam: Present: regular rate, irregular rhythm, normal heart sounds. Absent: systolic murmur, diastolic murmur, rubs, gallop, clicks GI/Abdominal exam: Present: soft, distended, tenderness (generalized), normal bowel sounds. Absent: guarding, rebound, rigid Rectal exam: Present: deferred exam: Present: normal inspection, other (pena catheteter with smallamount alfa urine) Extremities exam: Present: other (scattered upper extremity ecchymosis). Absent: tenderness, pedal edema, joint swelling Back exam: Present: normal inspection Neurological exam: Present: alert Expanded Patient oriented to: Present: person, place. Absent: time Psychiatric exam: Present: flat affect Skin exam: Present: abrasion (scattered healing bilateral upper extremities), other (scattered ecchymosis as above) Course Vital Signs 01/01/23 01/01/23 01/01/23 10:26 10:58 11:00 Temperature 97.7 F Pulse Rate 87 Respiratory 18 Rate Blood Pressure 102/64 103/65 O2 Sat by Pulse 96 98 97 Oximetry 01/01/23 01/01/23 01/01/23 11:30 12:00 12:30 Temperature Pulse Rate Respiratory Rate Blood Pressure 103/65 122/65 111/68 O2 Sat by Pulse 97 96 97 Oximetry 01/01/23 13:00 Temperature Pulse Rate Respiratory Rate Blood Pressure 124/77 O2 Sat by Pulse 94 L Oximetry Medical Decision Making - Medical Decision Making Was pt. sent in by a medical professional or institution (, PA, AED TRAINER, urgent care, hospital, or long term...) When possible be specific @ -No Did you speak to anyone other than the patient for history (EMS, parent, family, police, friend...)? What history was obtained from this source @ -No Did you review nursing and triage notes (agree or disagree)? Why? @ -I reviewed and agree with nursing and triage notes Were old charts reviewed (outside hosp., previous admission, EMS record, old EKG, old radiological studies, urgent care reports/EKG's, long term records)? Report findings @ -Yes, most recent laboratory studies on file from 12/24/2022 and his discharge summary from 12/24/2022 reviewed. Documentation packet from [facility] also reviewed. Differential Diagnosis (chest pain, altered mental status, abdominal pain women, abdominal pain men, vaginal bleeding, weakness, fever, dyspnea, syncope, headache, dizziness, GI bleed, back pain, seizure, CVA, palpatations, mental health, musculoskeletal)? @ -Differential Abdominal Pain Men: Appendicitis, cholecystitis, diverticulosis, ischemic bowel, pancreatitis, hepa titis, UTI, gastroenteritis, AAA, incarcerated hernia, bowel obstruction, constipation, inflammatory bowel, hepatitis, peptic ulcer disease, splenic infarction, perforated viscus, testicular torsion, this is not meant to be an all-inclusive list EKG interpreted by me (3pts min.). @ -None done X-rays interpreted by me (1pt min.). @ -KUB: Dilated gas-filled small bowel per radiologist measurement up to 5.[address] interpreted by me (1pt min.). @ -None done U/S interpreted by me (1pt. min.). @ -None done What testing was considered but not performed or refused? (CT, X-rays, U/S, labs)? Why? @ -None What meds were considered but not given or refused? Why? @ -None Did you discuss the management of the patient with other professionals (professionals i.e. , PA, AED TRAINER, lab, RT, psych nurse, web content & social media manager, stockholder, teacher, resident medical officer, caseworker)? Give summary @ -Yes, spoke with Dr. Zuniga regarding patient's presentation and recommendation for admission for acute renal failure along small bowel obstruction, nausea, and vomiting. He is accepting of admission. He is requesting CT of the abdomen with oral contrast only to be completed will add testing to admission orders. Was smoking cessation discussed for >3mins.? @ -No Was critical care preformed (if so, how long)? @ -No Were there social determinants of health that impacted care today? How? (Homelessness, low income, unemployed, alcoholism, drug addiction, transportat ion, low edu. Level, literacy, decrease access to med. care, fpc, rehab)? @ -No Was there de-escalation of care discussed even if they declined (Discuss DNR or withdrawal of care, Hospice)? DNR status @ -No What co-morbidities impacted this encounter? (DM, HTN, Smoking, COPD, CAD, Cancer, CVA, ARF, Chemo, Hep., AIDS, mental health diagnosis, sleep apnea, morbid obesity)? @ -None Was patient admitted / discharged? Hospital course, mention meds given and route, prescriptions, significant lab abnormalities, going to OR and other pertinent info. @ -82-year-old male presenting to the emergency room via EMS from [facility] on the morning with concerns regarding nausea and vomiting. According to EMS he was having episodes of dark colored vomit which he has not had since EMS has seen him. He is complaining of nausea and exam reveals generalized abdominal tenderness. He is at baseline mental status alert and oriented 2. Will start workup for abdominal pain/nausea and vomiting with KUB in the setting of recent acute kidney injury along with recent computed tomography scan, CBC, CMP, amylase, lipase, lactic acid, urinalysis, viral subbing for COVID, RSV and influenza. Will give 1 L fluid bolus and Zofran for nausea. No episodes of emesis at this facility. KUB demonstrates small bowel obstruction similar to partial small bowel obstruction identified on CT of the abdomen completed on 12/20/22. Laboratory studies reveal anemia with a hemoglobin of 8.9, leukocytosis with WBC of 12.0, neutrophils elevated 11.1. Significant CMP derangement: Sodium 131, carbon dioxide 17, BUN 94, creatinine 6.54 glucose 104, calcium 7.1, albumin 2.5, corrected calcium normal at 8.3. Amylase elevated 141, lipase elevated 1104; normal liver enzymes and alkaline phosphatase. Urinalysis with large leukocyte esterase, 48 WBCs, few bacteria and rare mucus, moderate blood and +1 protein. Findings discussed with patient, spouse and daughter at bedside advised admission required for acute kidney injury along with small bowel obstruction and nausea and vomiting. They're agreeable to this plan. Will give 1 g of Rocephin after obtaining blood cultures for positive urinalysis. Will give half amp of sodium bicarbonate, second liter of fluid bolus and started on maintenance fluids of 100 mL per hour. Will keep nothing by mouth in the setting of small bowel obstruction but will defer NG tube insertion at this time due to no emesis. Spoke with Dr. Peña on-call [facility] emergency department physicians regarding patient presentation, current workup and recommendation for admission with IV hydration and nephrology consult. He is accepting of admission requesting CT of the abdomen with oral contrast be ordered. Lactic acid not resulted at this time will reorder. No further orders received at this time. Will admit patient in serious condition to medical surgical unit under sound phy sicians for further evaluation and treatment of acute kidney injury along with small bowel obstruction. Undiagnosed new problem with uncertain prognosis? @ -No Drug Therapy requiring intensive monitoring for toxicity (Heparin, Nitro, Insulin, Cardizem)? @ -No Were any procedures done? @ -No Diagnosis/symptom? @ -Acute kidney injury Acute, or Chronic, or Acute on Chronic? @ -Acute on chronic Uncomplicated (without systemic symptoms) or Complicated (systemic symptoms)? @ -Complicated Side effects of treatment? @ -No Exacerbation, Progression, or Severe Exacerbation? @ -No Poses a threat to life or bodily function? How? (Chest pain, [place], [place], pneumonia, PE, COPD, DKA, ARF, appy, cholecystitis, CVA, Diverticulitis, Homicidal, Suicidal, threat to staff... and all critical care pts) @ -Yes, at risk for worsening renal failure, worsening uremic symptoms and electrolyte abnormalities. Diagnosis/symptom? @ -Small bowel obstruction Acute, or Chronic, or Acute on Chronic? @ -Acute Uncomplicated (without systemic symptoms) or Complicated (systemic symptoms)? @ -Complicated Side effects of treatment? @ -none Exacerbation, Progression, or Severe Exacerbation] @ -no Poses a threat to life or bodily function? @ -Yes, at risk for continued small bowel obstruction and bowel perforation. Case discussed with Dr. Holland. - Lab Data Result diagrams: 01/01/23 10:32 01/01/23 10:32 Lab Results 01/01/23 01/01/23 01/01/23 Range/Units 10:30 10:32 10:32 WBC 12.0 H (3.8-10.6) k/uL RBC 2.98 L (4.30-5.90) m/uL Hgb 8.9 L (13.0-17.5) gm/dL Hct 26.4 L (39.0-53.0) % MCV 88.5 (80.0-100.0) fL MCH 29.8 (25.0-35.0) pg MCHC 33.7 (31.0-37.0) g/dL RDW 15.0 (11.5-15.5) % Plt Count 228 (150-450) k/uL MPV 8.6 Neutrophils % 93 % Lymphocytes % 2 % Monocytes % 4 % Eosinophils % 0 % Basophils % 0 % Neutrophils # 11.1 H (1.3-7.7) k/uL Lymphocytes # 0.3 L (1.0-4.8) k/uL Monocytes # 0.5 (0-1.0) k/uL Eosinophils # 0.0 (0-0.7) k/uL Basophils # 0.0 (0-0.2) k/uL Sodium 131 L (137-145) mmol/L Potassium 4.7 (3.5-5.1) mmol/L Chloride 100 (98-107) mmol/L Carbon Dioxide 17 L (22-30) mmol/L Anion Gap 14 mmol/L BUN 94 H (9-20) mg/dL Creatinine 6.54 H (0.66-1.25) mg/dL Est GFR (CKD-EPI)AfAm 8 (>60 ml/min/1.73 sqM) Est GFR (CKD-EPI)NonAf 7 (>60 ml/min/1.73 sqM) Glucose 104 H (74-99) mg/dL Plasma Lactic Acid Minh 1.0 (0.7-2.0) mmol/L Calcium 7.1 L (8.4-10.2) mg/dL Phosphorus 6.7 H (2.5-4.5) mg/dL Magnesium 3.5 H (1.6-2.3) mg/dL Total Bilirubin 0.9 (0.2-1.3) mg/dL AST 26 (17-59) U/L ALT 11 (4-49) U/L Alkaline Phosphatase 49 (38-126) U/L Total Protein 4.5 L (6.3-8.2) g/dL Albumin 2.5 L (3.5-5.0) g/dL Amylase 141 H (30-110) U/L Lipase 1104 H (23-300) U/L Urine Color Urine Appearance (Clear) Urine pH (5.0-8.0) Ur Specific [place] (1.001-1.035) Urine Protein (Negative) Urine Glucose (UA) (Negative) Urine Ketones (Negative) Urine Blood (Negative) Urine Nitrite (Negative) Urine Bilirubin (Negative) Urine Urobilinogen (<2.0) mg/dL Ur Leukocyte Esterase (Negative) Urine RBC (0-5) /hpf Urine WBC (0-5) /hpf Urine Bacteria (None) /hpf Hyaline Casts (0-2) /lpf Urine Mucus (None) /hpf Influenza Type A (PCR) (Not Detectd) Influenza Type B (PCR) (Not Detectd) RSV (PCR) (Not Detectd) SARS-CoV-2 (PCR) (Not Detectd) 01/01/23 01/01/23 Range/Units 10:35 11:05 WBC (3.8-10.6) k/uL RBC (4.30-5.90) m/uL Hgb (13.0-17.5) gm/dL Hct (39.0-53.0) % MCV (80.0-100.0) fL MCH (25.0-35.0) pg MCHC (31.0-37.0) g/dL RDW (11.5-15.5) % Plt Count (150-450) k/uL MPV Neutrophils % % Lymphocytes % % Monocytes % % Eosinophils % % Basophils % % Neutrophils # (1.3-7.7) k/uL Lymphocytes # (1.0-4.8) k/uL Monocytes # (0-1.0) k/uL Eosinophils # (0-0.7) k/uL Basophils # (0-0.2) k/uL Sodium (137-145) mmol/L Potassium (3.5-5.1) mmol/L Chloride (98-107) mmol/L Carbon Dioxide (22-30) mmol/L Anion Gap mmol/L BUN (9-20) mg/dL Creatinine (0.66-1.25) mg/dL Est GFR (CKD-EPI)AfAm (>60 ml/min/1.73 sqM) Est GFR (CKD-EPI)NonAf (>60 ml/min/1.73 sqM) Glucose (74-99) mg/dL Plasma Lactic Acid Minh (0.7-2.0) mmol/L Calcium (8.4-10.2) mg/dL Phosphorus (2.5-4.5) mg/dL Magnesium (1.6-2.3) mg/dL Total Bilirubin (0.2-1.3) mg/dL AST (17-59) U/L ALT (4-49) U/L Alkaline Phosphatase (38-126) U/L Total Protein (6.3-8.2) g/dL Albumin (3.5-5.0) g/dL Amylase (30-110) U/L Lipase (23-300) U/L Urine Color Yellow Urine Appearance Cloudy (Clear) Urine pH 5.5 (5.0-8.0) Ur Specific [place] 1.014 (1.001-1.035) Urine Protein 1+ H (Negative) Urine Glucose (UA) Negative (Negative) Urine Ketones Negative (Negative) Urine Blood Moderate H (Negative) Urine Nitrite Negative (Negative) Urine Bilirubin Negative (Negative) Urine Urobilinogen <2.0 (<2.0) mg/dL Ur Leukocyte Esterase Large H (Negative) Urine RBC 6 H (0-5) /hpf Urine WBC 48 H (0-5) /hpf Urine Bacteria Few H (None) /hpf Hyaline Casts 1 (0-2) /lpf Urine Mucus Rare H (None) /hpf Influenza Type A (PCR) Not Detected (Not Detectd) Influenza Type B (PCR) Not Detected (Not Detectd) RSV (PCR) Not Detected (Not Detectd) SARS-CoV-2 (PCR) Not Detected (Not Detectd) Disposition Clinical Impression: Acute renal failure, SBO (small bowel obstruction) Disposition: ADMITTED IP TO THIS HOSP Condition: Serious Referrals: Kvng Saeed DO [Primary Care Provider] - 1-2 days Time of Disposition: 12:50
[2023-01-01 10:51] LABS: Basophils % (A) 0 %; Eosinophils % (A) 0 %; HCT 26.4 % (39.0-53.0); HGB 8.9 gm/dL (13.0-17.5); Lymphocytes # (A) 0.3 k/uL (1.0-4.8); Lymphocytes % (A) 2 %; MCH 29.8 pg (25.0-35.0); MCHC 33.7 g/dL (31.0-37.0); MCV 88.5 fL (80.0-100.0); Mean Platelet Volume 8.6; Monocytes # (A) 0.5 k/uL (0-1.0); Monocytes % (A) 4 %; Neutrophils # (A) 11.1 k/uL (1.3-7.7); Neutrophils % (A) 93 %; Platelet Count 228 k/uL (150-450); RBC 2.98 m/uL (4.30-5.90)
[2023-01-01 10:59] LABS: ALT 11 U/L (4-49); AST 26 U/L (17-59); African American GFR (CKD) 8 (>60 ml/min/1.73 sqM); Albumin 2.5 g/dL (3.5-5.0); Alkaline Phosphatase 49 U/L (38-126); Amylase 141 U/L (30-110); Anion Gap 14 mmol/L; Blood Urea Nitrogen 94 mg/dL (9-20); Calcium 7.1 mg/dL (8.4-10.2); Carbon Dioxide 17 mmol/L (22-30); Chloride 100 mmol/L (98-107); Glucose 104 mg/dL (74-99); Lipase 1104 U/L (23-300); Magnesium 3.5 mg/dL (1.6-2.3); Non-African American GFR(CKD) 7 (>60 ml/min/1.73 sqM); Phosphorus 6.7 mg/dL (2.5-4.5); Potassium 4.7 mmol/L (3.5-5.1); Sodium 131 mmol/L (137-145); Total Bilirubin 0.9 mg/dL (0.2-1.3); Total Protein 4.5 g/dL (6.3-8.2)
[2023-01-01 11:20] LABS: Appearance,Urine Cloudy (Clear); Bacteria,Urine Few /hpf; Bilirubin,Urine Negative (Negative); Blood,Urine Moderate (Negative); Color,Urine Yellow; Glucose,Urine (UA) Negative (Negative); Hyaline Casts,Urine 1 /lpf (0-2); Ketones,Urine Negative (Negative); Leukocyte Esterase,Urine Large (Negative); Mucus,Urine Rare /hpf; Nitrite,Urine Negative (Negative); PH, Urine 5.5 (5.0-8.0); Protein,Urine 1+ (Negative); RBC,Urine 6 /hpf (0-5); Specific Gravity,Urine 1.014 (1.001-1.035); Urobilinogen,Urine <2.0 mg/dL (<2.0); WBC,Urine 48 /hpf (0-5)
--- NOTE | 2023-01-01 11:53 | XR ---
EXAMINATION TYPE: XR KUB DATE OF EXAM: 01/01/2023 COMPARISON: CT abdomen pelvis 12/20/2022 HISTORY: Nausea/vomiting TECHNIQUE: Supine KUB image of the abdomen is obtained FINDINGS: Surgical clips in the right upper quadrant. Dilated gas-filled small bowel measuring up to 5.2 cm. Mi ld amount of stool is present within the nondilated colon. No convincing evidence for pneumoperitoneum within the limitations of this supine exam. No unusual calcifications. Vascular sclerosis. The lung bases are clear. The osseous structures are intact. Post right hip arthroplasty changes. Degenerative changes of the l umbar spine. Median sternotomy wires. IMPRESSION: Findings most consistent with small bowel obstruction as seen on prior CT 12/20/2022.
[2023-01-01] MEDS ORDERED: SODIUM BICARB 8.4% 50 ML SYR (1 MEQ/ML) IV STA (11:59)
[2023-01-01] MEDS ORDERED: IOPAMIDOL CONTRAST (ORAL USE) VIAL PO PRN (12:32)
[2023-01-01] MEDS ORDERED: ACETAMINOPHEN TAB 325 MG TAB PO PRN (12:50)
[2023-01-01] MEDS ORDERED: NALOXONE 0.4 MG/ML 1 ML VIAL IV PRN (12:50)
[2023-01-01] MEDS: SODIUM CHLORIDE 0.9% 1,000 ML IV SCH (12:58)
[2023-01-01] MEDS ORDERED: cefTRIAXone IN SWFI 1,000 MG/10 ML SYRINGE IVP STA (13:08)
--- NOTE | 2023-01-01 15:28 | CT ---
EXAMINATION TYPE: CT abdomen pelvis wo con DATE OF EXAM: 01/01/2023 COMPARISON: 12/20/2022 HISTORY: 82-year-old male Abdominal pain, N/V. Pt oral contrast only. Only able to complete 1/2 of fi rst dose. CT DLP: 860 mGycm. Automated exposure control for dose reduction was used. TECHNIQUE: Contiguous axial scanning of the abdomen and pelvis without IV contrast. Coronal and sagit milo reconstructions performed. FINDINGS: Generalized anasarca obtained. Median sternotomy wires. Heart mildly enlarged. No pericardial effusio n. Moderate right and small left pleural effusions with adjacent atelectasis. There is a moderate size hiatal hernia involving a third of the stomach in the lower chest. Aneurysmal ascending thoracic aorta 3.4 cm. Aneurysmal upper abdominal aorta at 3.5 cm. Aneurysmal mid abdominal aorta up to 4.4 cm, unchanged. 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 Distal abdominal aortobiiliac endovascular stent graft. [place] sac measuring 4.1 cm, unchanged. 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 There is breathing motion and lack of contrast limiting evaluation. Small amount of pneumobilia is no bette, correlate for history of prior sphincterotomy. Cholecystectomy clips. Otherwise, noncontrast keo earance of the liver, spleen, and mildly atrophic pancreas show no gross abnormality. There is moderate right-sided hydronephrosis and ongoing severe left-sided hydronephrosis. Generalized mesenteric edema. There is also mild abdominal ascites fluid. Dilated small bowel loops measuring up to 4.8 cm with air-fluid levels. There appears to be collapse of distal small bowel loops in the right lower quadrant. Transition point difficult to clearly identi fy given the degree of motion artifact. Colon is largely collapsed. Sigmoid diverticulosis. Extensive edematous change throughout the mesente ry and peritoneum limiting the assessment. A Garcia catheter is present within a severely thickened bladder. There appears to be circumferential wall thickening of the upper rectum with extensive presacral soft tissue thickening. Additional perir ectal soft tissue thickening extending up along the iliac vessels. Asymmetric thickening of the right psoas major with subtle underlying hyperdensity measuring up to 4. 7 cm wide and 7.0 cm craniocaudal. Bones: Osteopenia. Moderate multilevel spondylotic change throughout the visualized spine. Right hip total arthroplasty noted. Moderate degenerative change left hip. IMPRESSION: 1. High-grade small bowel obstruction. Small bowel loops dilated up to 4.8 cm. Transition point is d ifficult to determine due to the degree of breathing motion artifact. 2. Correlate for fluid overload state/third spacing given diffuse anasarca change, mild abdominal as cites, diffuse mesenteric edema, as well as moderate right and small left pleural effusions. 3. There is abnormal rectal soft tissue thickening and extensive perirectal soft tissue thickening a nd stranding as well. Unclear if this relates to underlying colitis or neoplasm. Correlate for any kn own history. 4. Severely thickened bladder wall with Garcia catheter in place. Consider cystitis. Again, correlate to exclude neoplasm. 5. There is ongoing severe left hydronephrosis and moderate right hydronephrosis. Correlate for any known diagnosis. Urology evaluation if no known diagnosis. 6. Aneurysmal aorta measuring up to 4.4 cm and aneurysmal common iliac arteries measuring up to 2.7 cm on the left. 7. Trace pneumobilia noted. Query history of prior sphincterotomy. 8. Extensive sigmoid diverticulosis. We're unable to assess for any associated inflammation due to t he degree of mesenteric edema. 9. New intramuscular hematoma thickening of the right psoas major. Hematoma measuring up to 7.0 x 4. 7 cm.
--- NOTE | 2023-01-01 16:57 | P.HPIM ---
History of Present Illness H&P Date: 01/01/23 Patient is a 82-year-old male with a PMH of A. allen on Eliquis, HFrEF, CAD urinary retention status post indwelling Pena catheter, acute kidney injury, type II DM, hypertension, hyperlipidemia, who presents to the emergency room with complaints of abdominal pain, nausea and vomiting. Of note, patient was recently hospitalized from 12/14-12/24 for MARION on CKD requiring TURP with Urology. His hospitalization was complicated with diverticulitis, small bowel obstruction and acute delirium which was managed conservatively by surgery. He was discharged to SNF when his symptoms improved and he was able to tolerate diet. Patient is a poor historian and majority of history is obtained from charting. In the ED, CBC showed WBC count of 12 and hemoglobin of 8.9. CMP showed sodium 131, bicarb 17, BUN 94, creatinine 6.54, glucose 104, calcium 7.1, albumin 2.5. Magnesium was 3.5. Amylase 141, lipase 1104. Urinalysis positive for moderate blood and large leukocyte esterase. Influenza, RSV, COVID-19 negative. CTAP was done which showed high-grade small bowel obstruction, anasarca, bilateral pleural effusion, extensive perirectal soft tissue thickening and stranding, severely thickened bladder wall with Pena catheter, severe left hydronephrosis and moderate right hydronephrosis, aortic aneurysm measuring 4.4 cm and common iliac aneurysm measuring 2.7 cm on the left, pneumobilia, sigmoid diverticulosis, intramuscular hematoma of the right psoas major measuring 7 x 4.7 cm. Patient is admitted for further management and workup. Pertinent positives and negatives as discussed in HPI, a complete review of systems was performed and all other systems are negative. General: non toxic, mild distress, appears at stated age Derm: warm, dry Head: atraumatic, normocephalic, symmetric Eyes: EOMI, no lid lag, anicteric sclera Cardiovascular: S1S2 reg, no murmur Lungs: Decreased BS BL Abdominal: distended, TTP in all 4 quadrants without rebound. sluggish BS Ext: no gross muscle atrophy, no edema, no contractures Neuro: no focal neuro deficits Psych: Alert, oriented, appropriate affect High-grade small bowel obstruction Acute kidney injury on chronic kidney disease with moderate to severe bilateral hydronephrosis Urinary tract infection with history of indwelling Pena catheter Right psoas hematoma Metabolic acidosis Hyponatremia Elevated lipase and amylase Leukocytosis Aortic aneurysm Systolic CHF with EF 20% Chronic conditions: A. fib on Eliquis, CAD, type II DM, hypertension, hyperlipidemia Based on my assessment of this patient, this patient meets a high complexity l evel of care. Patient has an acute diagnosis of high grade SBO with MARION on CKD leading to metabolic derangements that poses a threat to life or bodily function. He is also found to have a right psoas hematoma. High-grade small bowel obstruction: NPO. Consult surgery. Acute kidney injury on chronic kidney disease with moderate to severe bilateral hydronephrosis: Multifactorial. Obstructive with pre-renal component (poor oral intake, N/V). NS at 75 cc/hr. Consult Urology. Urinary tract infection with history of indwelling Pena catheter: Previous UCx + Pseudomonas. Stop Rocephin and start Cefepime 1g IV BID. Telemetry monitoring. UCx and BCx ordered. Lactic acid ordered. Right psoas hematoma: Stop Eliquis. Consult surgery. Trend CBC. Transfuse if Hg < 7. Metabolic acidosis: Likely due to MARION on CKD. Sodium bicarbonate 650 mg PO BID. Hyponatremia: Patient is hypervolemic. Monitor. Elevated lipase and amylase Leukocytosis: Possibly related to UTI. Does not meet sepsis criteria. Trend. Aortic aneurysm: Outpatient monitoring. Systolic CHF with EF 20%: Cautious use of fluids. I have reviewed the following php consultant notes: I have reviewed the results of the following tests: CBC, CMP, Amylase/Lipase, CTAP, UA, Flu, RSV, COVID I have ordered the following tests: CBC, BMP, UCx, BCx. I have discussed the care of this patient with the following independent historian: I have independently interpreted the following test below: I have discussed the management of this patient with the following physician: 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) Additional Past Medical History / Comment(s): pneumonia May 2020 after hernia surgery Last Myocardial Infarction Date:: unknown History of Any Multi-Drug Resistant Organisms: None Reported Past Surgical History: Cholecystectomy, Coronary Bypass/CABG, Heart Catheterization With Stent, Hernia Repair, Joint Replacement Additional Past Surgical History / Comment(s): triple bypass 14 years ago, aortic aneurysm repair, rt hip replacement, left inguinal hernia repair, unsure how many cardiac stents Cystoscopy on 10/26/22 (chronic pena placed) Past Anesthesia/Blood Transfusion Reactions: No Reported Reaction Date of Last Stent Placement:: unknown Past Psychological History: No Psychological Hx Reported Smoking Status: Former smoker Past Alcohol Use History: None Reported Past Drug Use History: None Reported - Past Family History Mother Family Medical History: No Reported History Father Family Medical History: Congestive Heart Failure (CHF) (Father at the age of 78 from CHF.), Hypertension Additional Family Medical History / Comment(s): Patient states that his parents never went to the doctor. He thinks his father of hypertensive disease. He does not know much about his mother. Denies any significant medical history in siblings, is and has kids with no significant medical. lives of at home. Brother(s) Family Medical History: No Reported History (patient has one brother no major issues.) Sister(s) Family Medical History: No Reported History (patient has 2 sisters no major medical problems) Son(s) Family Medical History: No Reported History (patient has 2 sons ok.) Daughter(s) Family Medical History: No Reported History (one daughter ok.) Medications and Allergies Home Medications Medication Instructions Recorded Confirmed Type Tamsulosin HCl [Flomax] 0.4 mg PO DAILY 10/29/22 01/01/23 History Apixaban [Eliquis] 2.5 mg PO BID #60 tab 11/03/22 01/01/23 Rx Pravastatin Sodium [Pravachol] 80 mg PO HS #60 tab 11/03/22 01/01/23 Rx Famotidine [Pepcid] 20 mg PO DAILY #60 tab 12/24/22 01/01/23 Rx Magnesium Oxide [Mag-Ox] 400 mg PO BID #60 tab 12/24/22 01/01/23 Rx Sodium Bicarbonate Tab 650 mg PO BID #60 tab 12/24/22 01/01/23 Rx Ondansetron [Zofran] 4 mg PO Q8H PRN 01/01/23 01/01/23 History carvediloL [Coreg*] 12.5 mg PO BID 01/01/23 01/01/23 History hydrALAZINE HCL [Apresoline] 50 mg PO TID@0900,1300,2100 01/01/23 01/01/23 History Allergies Allergy/AdvReac Type Severity Reaction Status Date / Time No Known Allergies Allergy Verified 01/01/23 14:37 Physical Exam Vitals: Vital Signs Temp Pulse Resp BP Pulse Ox 01/01/23 13:00 124/77 94 L 01/01/23 12:30 111/68 97 01/01/23 12:00 122/65 96 01/01/23 11:30 103/65 97 01/01/23 11:00 103/65 97 01/01/23 10:58 98 01/01/23 10:26 97.7 F 87 18 102/64 96 Intake and Output 01/01/23 01/01/23 01/01/23 06:59 14:59 22:59 Other: Weight 81.647 kg Results CBC & Chem 7: 01/01/23 10:32 01/01/23 10:32 Labs: Abnormal Lab Results - Last 24 Hours (Table) 01/01/23 01/01/23 01/01/23 Range/Units 10:32 10:32 11:05 WBC 12.0 H (3.8-10.6) k/uL RBC 2.98 L (4.30-5.90) m/uL Hgb 8.9 L (13.0-17.5) gm/dL Hct 26.4 L (39.0-53.0) % Neutrophils # 11.1 H (1.3-7.7) k/uL Lymphocytes # 0.3 L (1.0-4.8) k/uL Sodium 131 L (137-145) mmol/L Carbon Dioxide 17 L (22-30) mmol/L BUN 94 H (9-20) mg/dL Creatinine 6.54 H (0.66-1.25) mg/dL Glucose 104 H (74-99) mg/dL Calcium 7.1 L (8.4-10.2) mg/dL Phosphorus 6.7 H (2.5-4.5) mg/dL Magnesium 3.5 H (1.6-2.3) mg/dL Total Protein 4.5 L (6.3-8.2) g/dL Albumin 2.5 L (3.5-5.0) g/dL Amylase 141 H (30-110) U/L Lipase 1104 H (23-300) U/L Urine Protein 1+ H (Negative) Urine Blood Moderate H (Negative) Ur Leukocyte Esterase Large H (Negative) Urine RBC 6 H (0-5) /hpf Urine WBC 48 H (0-5) /hpf Urine Bacteria Few H (None) /hpf Urine Mucus Rare H (None) /hpf
[2023-01-01] MEDS ORDERED: PRAVASTATIN SODIUM 80 MG TAB PO SCH (21:00)
[2023-01-01] MEDS ORDERED: CEFEPIME 1 GM in SODIUM CHLORIDE 0.9% 50 ML IVPB SCH (21:00)
[2023-01-01] MEDS: SODIUM BICARBONATE TAB 650 MG TAB PO SCH (22:09)
[2023-01-02] MEDS: SODIUM CHLORIDE 0.9% 1,000 ML IV SCH (01:43)
[2023-01-02] MEDS: ONDANSETRON 4 MG/2 ML VIAL IVP PRN ×2 (02:02→19:57)
[2023-01-02 02:15] LABS: Glucose,Whole Blood 118 mg/dL (70-110)
[2023-01-02] MEDS ORDERED: METOPROLOL TARTRATE 50 MG TAB PO STA (04:43)
[2023-01-02 05:08] LABS: Glucose,Whole Blood 131 mg/dL (70-110)
[2023-01-02] MEDS ORDERED: FUROSEMIDE 10 MG/ML 10 ML VIAL IV STA (05:21)
--- NOTE | 2023-01-02 05:45 | P.EN ---
A- team: Indication: Hypoxia, shortness of breath Arrived on Scene to find: Patient complaining of shortness of breath and nausea with multiple episodes of nonbloody emesis. With SpO2 of 95% on 6 L nasal cannula oxygen. He denied mild diffuse abdominal discomfort. Denied experiencing chest discomfort. Vital signs reviewed: BP 98/62, pulse 75, SpO2 95% on 6 L is a cannula oxygen Patient seen and examined at bedside. General: Ill-appearing male, in mild to moderate distress, [appears at stated age] Derm: [warm], [dry] Head: [atraumatic], [normocephalic], [symmetric] Eyes: [EOMI], [no lid lag], [anicteric sclera] Mouth: [no lip lesion], [mucus membranes moist] Cardiovascular: [S1S2 irregularly irregular], [no murmur], [positive posterior tibial pulse bilateral], Lungs: Diffuse bilateral rales appreciated, [no accessory muscle use] Abdominal: [soft], mild diffuse tenderness, [no guarding], [no appreciable organomegaly] Ext: [no gross muscle atrophy], [no edema], [no contractures] Neuro: [ CN II-XI grossly intact], [no focal neuro deficits] Psych: [Alert], [oriented], [appropriate affect] Assessment: Hypoxia, suspect secondary to flash pulmonary edema High-grade small bowel obstruction with nausea and vomiting Plan: Lasix 80 mg IV push ordered Stat chest x-ray ordered NG tube with intermittent suction ordered Patient to be transferred to [facility]. [facility] ordered A Total of 35 minutes of critical care time was spent on the complex care of this patient.
--- NOTE | 2023-01-02 06:15 | XR ---
EXAM: XR Chest, 1 View CLINICAL HISTORY: ITS.REASON XR Reason: SOB TECHNIQUE: Frontal view of the chest. COMPARISON: 12/13/22 FINDINGS: Lungs: Increasing opacity in the right lower lung zone and retrocardiac region which may reflect developing infiltrate. Follow-up to exclude developing pneumonia. Slight prominence of the central lung markings which may reflect congestion. Pleural space: Unremarkable. No pneumothorax. Heart: Cardiovascular silhouette. Mildly enlarged and unchanged. Mediastinum: Unremarkable. Bones/joints: Status post median sternotomy. Vasculature: Tortuous calcified thoracic aorta is again seen. IMPRESSION: 1. Bilateral lower lung atelectasis/airspace disease, right slightly worse than left. 2. Stable cardiomegaly
[2023-01-02 06:25] LABS: African American GFR (CKD) 8 (>60 ml/min/1.73 sqM); Anion Gap 13 mmol/L; Blood Urea Nitrogen 98 mg/dL (9-20); Calcium 6.8 mg/dL (8.4-10.2); Carbon Dioxide 16 mmol/L (22-30); Chloride 104 mmol/L (98-107); Glucose 110 mg/dL (74-99); Non-African American GFR(CKD) 7 (>60 ml/min/1.73 sqM); Potassium 4.4 mmol/L (3.5-5.1); Sodium 133 mmol/L (137-145)
[2023-01-02] MEDS: SODIUM BICARBONATE TAB 650 MG TAB PO SCH ×2 (08:08→19:39)
[2023-01-02] MEDS: TAMSULOSIN 0.4 MG CAP.ER.24H PO SCH (08:08)
[2023-01-02] MEDS: FAMOTIDINE 20 MG TAB PO SCH (08:08)
[2023-01-02] MEDS ORDERED: SODIUM BICARB 8.4% 50 ML SYR (1 MEQ/ML) IV STA ×2 (08:09→11:50)
[2023-01-02 08:44] LABS: Basophils # (A) 0.01 X 10*3/uL (0.00-0.10); Basophils % (A) 0.1 %; Eosinophils # (A) 0.04 X 10*3/uL (0.04-0.35); Eosinophils % (A) 0.3 %; HGB 7.9 d/dL (13.0-17.0); Lymphocytes # (A) 0.36 X 10*3/uL (0.90-5.00); Lymphocytes % (A) 2.3 %; MCH 29.3 pg (27.0-32.0); MCHC 31.6 d/dL (32.0-37.0); MCV 92.6 FL (80.0-97.0); Mean Platelet Volume 10.5 FL (9.5-12.2); Monocytes # (A) 0.69 X 10*3/uL (0.20-1.00); Monocytes % (A) 4.3 %; NRBC Per 100 WBC 0 X 10*3/uL (0.00-0.01); Neutrophils # (A) 14.72 X 10*3/uL (1.80-7.70); Neutrophils % (A) 92.4 %; Platelet Count 256 X 10*3/uL (140-440); WBC 15.92 X 10*3/uL (4.50-10.00)
--- NOTE | 2023-01-02 11:20 | P.CRDCN ---
History of Present Illness Consult date: 01/02/23 History of present illness: History of Present Illness: The patient is an 82-year-old male transferred from the skilled nursing with progressive nausea and vomiting and abdominal pain. He has a history of dementia and the history is obtained from the daughter. The patient is followed on a regular basis by Dr. Leggett, he has a history of CAD status post CABG in 2006, abdominal aortic aneurysm endovascular repair, chronic persistent atrial fibrillation and mitral regurgitation cardiomyopathy who presented recently to the hospital with symptoms of generalized fatigue was found to have a bladder mass and worsening renal function. He had a prolonged hospitalization during his last admission and had an echocardiogram with ejection fraction reported to 20% with moderate to severe mitral and tricuspid regurgitation. According to the daughter is been complaining for the last few days of progressive abdominal discomfort, nausea and vomiting. On presentation he was diagnosed with small bowel obstruction, dilatation of his bowels. There is worsening renal failure and his troponin is mildly elevated. There is no clear complaining of chest discomfort. He has dyspnea on exertion but no dizziness or palpitations. He continues to be in atrial fibrillation and has been anticoagulated in the past. There was signs of possible small bowel obstruction on the computed tomography scan obtain in December during his last admission. He has a history of hyperlipidemia and hypertension. On presentation his creatinine is up to 6.44 with a BUN of 98. His WBC was 15.92. Medications: Hydralazine 50 mg 3 times a day, Coreg 12.5 mg twice a day, Flomax, pravastatin 80 mg daily, Pepcid, Eliquis 2.5 mg bid Review of Systems: Limited Respiratory: No history of asthma, bronchitis or recent cough. GI: He has nausea and vomiting with abdominal discomfort : He underwent recently surgery for bladder mass and has worsening renal functions Nervous System: No stroke or seizure. Physical Examination: 82-year-old male alert confused, NG tube in place,Blood pressure 109/60, Heart rate 90 Head: Normocephalic. Eyes: Sclerae nonicteric. Neck: Good carotid upstroke, no bruit, no jugular venous distention. Lungs: Clear to auscultation anteriorly. Heart: Irregular rate and rhythm, S1-S2, no S3, no rub. Holosystolic murmur 2/6 at the apex. Abdomen: Soft mild tenderness, hypoactive bowel sounds, no organomegaly. Extremities: No edema, intact distal pulses. Labs: WBC 15.92, hemoglobin 7.9, potassium 4.4, BUN 98, creatinine 6.44. Troponin 0.042 and 0.030. Chest x-ray with atelectasis. Computed tomography scan of the abdomen with evidence of small bowel obstruction EKG: Pending Impression: 1. Small bowel obstruction 2. Worsening chronic kidney disease 3. Chronic persistent atrial fibrillation 4. History of CAD, status post CABG, no evidence of acute coronary syndrome 5. Severe cardiomyopathy 6. Moderate to severe mitral regurgitation 7. History of bladder mass and recent surgery Plan: 1. Changed to intravenous beta octavio 2. Hold anticoagulation for now 3. The patient is a very high risk for any surgical intervention from the cardiac standpoint 4. I discussed the findings with the daughter in detail including the very poor prognosis, she will discuss his status further with his attending physician regarding CODE STATUS and further intervention 5. Thank you for this consult we will follow with you. Past Medical History Past Medical History: Atrial Fibrillation, Coronary Artery Disease (CAD), Can cer, Hypertension, Osteoarthritis (OA), Pneumonia, Prostate Disorder, Renal Disease Additional Past Medical History / Comment(s): pneumonia May 2020 after hernia surgery Last Myocardial Infarction Date:: unknown History of Any Multi-Drug Resistant Organisms: None Reported Past Surgical History: Cholecystectomy, Coronary Bypass/CABG, Heart Catheterization With Stent, Hernia Repair, Joint Replacement Additional Past Surgical History / Comment(s): triple bypass 14 years ago, aortic aneurysm repair, rt hip replacement, left inguinal hernia repair, unsure how many cardiac stents Cystoscopy on 10/26/22 (chronic pena placed) Past Anesthesia/Blood Transfusion Reactions: No Reported Reaction Date of Last Stent Placement:: unknown Past Psychological History: No Psychological Hx Reported Smoking Status: Never smoker Past Alcohol Use History: None Reported Additional Past Alcohol Use History / Comment(s): quit smoking 30 yrs. ago, 1ppd for 25 yrs. Past Drug Use History: None Reported - Past Family History Mother Family Medical History: No Reported History Father Family Medical History: Congestive Heart Failure (CHF) (Father at the age of 78 from CHF.), Hypertension Additional Family Medical History / Comment(s): Patient states that his parents never went to the doctor. He thinks his father of hypertensive disease. He does not know much about his mother. Denies any significant medical history in siblings, is and has kids with no significant medical. lives of at home. Brother(s) Family Medical History: No Reported History (patient has one brother no major issues.) Sister(s) Family Medical History: No Reported History (patient has 2 sisters no major medical problems) Son(s) Family Medical History: No Reported History (patient has 2 sons ok.) Daughter(s) Family Medical History: No Reported History (one daughter ok.) Medications and Allergies Home Medications Medication Instructions Recorded Confirmed Type Tamsulosin HCl [Flomax] 0.4 mg PO DAILY 10/29/22 01/01/23 History Apixaban [Eliquis] 2.5 mg PO BID #60 tab 11/03/22 01/01/23 Rx Pravastatin Sodium [Pravachol] 80 mg PO HS #60 tab 11/03/22 01/01/23 Rx Famotidine [Pepcid] 20 mg PO DAILY #60 tab 12/24/22 01/01/23 Rx Magnesium Oxide [Mag-Ox] 400 mg PO BID #60 tab 12/24/22 01/01/23 Rx Sodium Bicarbonate Tab 650 mg PO BID #60 tab 12/24/22 01/01/23 Rx Ondansetron [Zofran] 4 mg PO Q8H PRN 01/01/23 01/01/23 History carvediloL [Coreg*] 12.5 mg PO BID 01/01/23 01/01/23 History hydrALAZINE HCL [Apresoline] 50 mg PO TID@0900,1300,2100 01/01/23 01/01/23 History Allergies Allergy/AdvReac Type Severity Reaction Status Date / Time No Known Allergies Allergy Verified 01/01/23 14:37 Physical Exam Vitals: Vital Signs Temp Pulse Pulse Resp BP BP Pulse Ox 01/02/23 08:02 92 L 01/02/23 08:00 97.6 F 104 H 16 93/53 92 L 01/02/23 02:00 97.6 F 92 109/65 94 L 01/01/23 20:16 98.5 F 71 18 130/73 95 01/01/23 19:21 86 18 122/78 97 01/01/23 18:00 129/80 96 01/01/23 17:30 115/78 96 01/01/23 17:00 106/77 94 L 01/01/23 16:30 106/77 95 01/01/23 16:00 102/70 97 01/01/23 15:30 117/78 94 L 01/01/23 15:00 115/70 92 L 01/01/23 14:30 109/79 97 01/01/23 14:00 107/68 96 01/01/23 13:30 115/77 95 01/01/23 13:00 124/77 94 L 01/01/23 12:30 111/68 97 01/01/23 12:00 122/65 96 01/01/23 11:30 103/65 97 Intake and Output 01/01/23 01/02/23 01/02/23 22:59 06:59 14:59 Output Total 900 Balance -900 Output: Urine 500 Emesis 400 Other: Voiding Method Indwelling Catheter Indwelling Catheter Weight 81.647 kg Results 01/02/23 05:13 01/02/23 05:13 Cardiac Enzymes 01/02/23 01/02/23 Range/Units 05:13 09:07 Troponin I 0.042 H* 0.030 (0.000-0.034) ng/mL CBC 01/02/23 Range/Units 05:13 WBC 15.92 H (4.50-10.00) X 10*3/uL RBC 2.70 L (4.40-5.60) X 10*6/uL Hgb 7.9 L (13.0-17.0) d/dL Hct 25.0 L (39.6-50.0) % Plt Count 256 (140-440) X 10*3/uL Comprehensive Metabolic Panel 01/02/23 Range/Units 05:13 Sodium 133 L (137-145) mmol/L Potassium 4.4 (3.5-5.1) mmol/L Chloride 104 (98-107) mmol/L Carbon Dioxide 16 L (22-30) mmol/L BUN 98 H (9-20) mg/dL Creatinine 6.44 H (0.66-1.25) mg/dL Glucose 110 H (74-99) mg/dL Calcium 6.8 L (8.4-10.2) mg/dL Current Medications Generic Name Dose Route Start Last Admin Trade Name Freq PRN Reason Stop Dose Admin Acetaminophen 650 mg 01/01/23 12:50 Acetaminophen Tab 325 Mg Tab PO Q6HR PRN Mild Pain or Fever > 100.5 Famotidine 20 mg 01/02/23 09:00 01/02/23 08:08 Famotidine 20 Mg Tab PO Not Given DAILY MARLENE Cefepime HCl 1 gm/ Sodium 50 mls @ 12.5 mls/hr 01/02/23 09:00 Chloride IVPB Q12HR MARLENE Protocol Iopamidol 30 ml 01/01/23 12:32 Iopamidol Contrast (Oral Use) Vial PO 01/02/23 12:[address] Scan Naloxone HCl 0.2 mg 01/01/23 12:50 Naloxone 0.4 Mg/Ml 1 Ml Vial IV Q2M PRN Opioid Reversal Ondansetron HCl 4 mg 01/01/23 12:50 01/02/23 02:02 Ondansetron 4 Mg/2 Ml Vial IVP 4 mg Q8HR PRN Administration Nausea And Vomiting Pantoprazole Sodium 40 mg 01/02/23 09:45 Pantoprazole 40 Mg/10 Ml Vial IVP DAILY MARLENE Pravastatin Sodium 80 mg 01/01/23 21:00 01/01/23 22:09 Pravastatin Sodium 80 Mg Tab PO 80 mg HS MARLENE Administration Sodium Bicarbonate 650 mg 01/01/23 21:00 01/02/23 08:08 Sodium Bicarbonate Tab 650 Mg Tab PO Not Given BID MARLENE Tamsulosin HCl 0.4 mg 01/02/23 09:00 01/02/23 08:08 Tamsulosin 0.4 Mg Cap.Er.24h PO Not Given DAILY MARLENE Intake and Output 01/01/23 01/02/23 01/02/23 22:59 06:59 14:59 Output Total 900 Balance -900 Output: Urine 500 Emesis 400 Other: Voiding Method Indwelling Catheter Indwelling Catheter Weight 81.647 kg 01/02/23 05:13 01/02/23 05:13
--- NOTE | 2023-01-02 11:54 | P.NPCON ---
History of Present Illness - Reason for Consult acute renal failure, chronic renal failure - History of Present Illness Reason for consultation: Acute kidney injury History of present illness: Patient is a 82-year-old male seen in renal consultation for acute kidney injury. Patient's creatinine in August 2022 was 1.1. Patient was admitted in the hospital last month due to obstructive uropathy. Patient has a history of bladder cancer in bilateral hydronephrosis and is status post TURBT 12/18/2022. He has a chronic Pena catheter. Patient came to the hospital due to nausea and vomiting. Patient became short of breath this morning and received dose of 80 mg IV Lasix. He is also noted to have bowel obstruction and currently has an NG tube in place. Chest x-ray done this morning showed possible pneumonia in the right lower lung. Mild vascular congestion was noted. Computed tomography scan of the abdomen and pelvis showed high-grade small bowel obstruction with moderate right and severe left hydronephrosis. Patient has a Pena catheter. Urine output documented is 900 mL. Patient has history of systolic CHF with ejection fraction of 20% with moderate to severe mitral and tricuspid r egurgitation. Patient's creatinine this admission is near 6.5. Patient is a poor historian. Family present at bedside. Vital signs are stable. General: No acute distress. HEENT: Head exam is unremarkable. NG tube noted. LUNGS: No audible rhonchi or wheezes. HEART: Rate and Rhythm are regular. ABDOMEN: Distention noted. EXTREMITITES: Trace edema. Past Medical History Past Medical History: Atrial Fibrillation, Coronary Artery Disease (CAD), Cancer, Hypertension, Osteoarthritis (OA), Pneumonia, Prostate Disorder, Renal Disease Additional Past Medical History / Comment(s): pneumonia May 2020 after hernia surgery Last Myocardial Infarction Date:: unknown History of Any Multi-Drug Resistant Organisms: None Reported Past Surgical History: Cholecystectomy, Coronary Bypass/CABG, Heart Catheterization With Stent, Hernia Repair, Joint Replacement Additional Past Surgical History / Comment(s): triple bypass 14 years ago, aortic aneurysm repair, rt hip replacement, left inguinal hernia repair, unsure how many cardiac stents Cystoscopy on 10/26/22 (chronic pena placed) Past Anesthesia/Blood Transfusion Reactions: No Reported Reaction Date of Last Stent Placement:: unknown Past Psychological History: No Psychological Hx Reported Smoking Status: Never smoker Past Alcohol Use History: None Reported Additional Past Alcohol Use History / Comment(s): quit smoking 30 yrs. ago, 1ppd for 25 yrs. Past Drug Use History: None Reported - Past Family History Mother Family Medical History: No Reported History Father Family Medical History: Congestive Heart Failure (CHF) (Father at the age of 78 from CHF.), Hypertension Additional Family Medical History / Comment(s): Patient states that his parents never went to the doctor. He thinks his father of hypertensive disease. He does not know much about his mother. Denies any significant medical history in siblings, is and has kids with no significant medical. lives of at home. Brother(s) Family Medical History: No Reported History (patient has one brother no major issues.) Sister(s) Family Medical History: No Reported History (patient has 2 sisters no major medical problems) Son(s) Family Medical History: No Reported History (patient has 2 sons ok.) Daughter(s) Family Medical History: No Reported History (one daughter ok.) Medications and Allergies Home Medications Medication Instructions Recorded Confirmed Type Tamsulosin HCl [Flomax] 0.4 mg PO DAILY 10/29/22 01/01/23 History Apixaban [Eliquis] 2.5 mg PO BID #60 tab 11/03/22 01/01/23 Rx Pravastatin Sodium [Pravachol] 80 mg PO HS #60 tab 11/03/22 01/01/23 Rx Famotidine [Pepcid] 20 mg PO DAILY #60 tab 12/24/22 01/01/23 Rx Magnesium Oxide [Mag-Ox] 400 mg PO BID #60 tab 12/24/22 01/01/23 Rx Sodium Bicarbonate Tab 650 mg PO BID #60 tab 12/24/22 01/01/23 Rx Ondansetron [Zofran] 4 mg PO Q8H PRN 01/01/23 01/01/23 History carvediloL [Coreg*] 12.5 mg PO BID 01/01/23 01/01/23 History hydrALAZINE HCL [Apresoline] 50 mg PO TID@0900,1300,2100 01/01/23 01/01/23 History Allergies Allergy/AdvReac Type Severity Reaction Status Date / Time No Known Allergies Allergy Verified 01/01/23 14:37 Physical Exam Vitals: Vital Signs Temp Pulse Pulse Resp BP BP Pulse Ox 01/02/23 08:02 92 L 01/02/23 08:00 97.6 F 104 H 16 93/53 92 L 01/02/23 02:00 97.6 F 92 109/65 94 L 01/01/23 20:16 98.5 F 71 18 130/73 95 01/01/23 19:21 86 18 122/78 97 01/01/23 18:00 129/80 96 01/01/23 17:30 115/78 96 01/01/23 17:00 106/77 94 L 01/01/23 16:30 106/77 95 01/01/23 16:00 102/70 97 01/01/23 15:30 117/78 94 L 01/01/23 15:00 115/70 92 L 01/01/23 14:30 109/79 97 01/01/23 14:00 107/68 96 01/01/23 13:30 115/77 95 01/01/23 13:00 124/77 94 L 01/01/23 12:30 111/68 97 01/01/23 12:00 122/65 96 Intake and Output 01/01/23 01/02/23 01/02/23 22:59 06:59 14:59 Output Total 900 Balance -900 Output: Urine 500 Emesis 400 Other: Voiding Method Indwelling Catheter Indwelling Catheter Weight 81.647 kg Results - Lab Results Most recent lab results Calcium 6.8 mg/dL (8.4-10.2) L 01/02/23 05:13 Phosphorus 6.7 mg/dL (2.5-4.5) H 01/01/23 10:32 Magnesium 3.5 mg/dL (1.6-2.3) H 01/01/23 10:32 01/02/23 05:13 01/02/23 05:13 Assessment and Plan Plan: Assessment: 1. Acute kidney injury secondary to ATN. Creatinine 6.5. Creatinine 1.1 in August 2022. 2. Bilateral hydronephrosis with history of bladder cancer status post TURBT 12/18/22. Has chronic Pena catheter. 3. Metabolic acidosis secondary to acute kidney injury. On oral bicarb. 4. Anemia. Rule out iron deficiency. 5. Acute on chronic systolic CHF ejection fraction of 20% with moderate to severe mitral and tricuspid regurgitation. 6. Small bowel obstruction. Has NG tube. Plan: Continue to monitor renal function and urine output. Urology consulted. 2 amps sodium bicarb IV push now. Check iron studies. Discussed renal replacement therapy with family present at bedside. Refusing to start at this time. Also discussed with primary attending. Prognosis guarded. Thank you for the consultation. I will continue to follow the patient with you during his hospital stay.
[2023-01-02] MEDS: PANTOPRAZOLE 40 MG/10 ML VIAL IVP SCH (12:14)
[2023-01-02] MEDS: CEFEPIME 1 GM in SODIUM CHLORIDE 0.9% 50 ML IVPB SCH ×2 (12:14→19:52)
--- NOTE | 2023-01-02 12:21 | P.GSCN ---
History of Present Illness Consult date: 01/02/23 Reason for Consult: small bowel obstruction History of present illness: 82 yo male brought to ER with N/V and abdominal pain. Recent prolonged hospitalization for TURP. Acute SOB overnight and transferred to Review of Systems obtained via chart review and discussion with family at bedside - Constitutional Reports as per HPI, Reports poor appetite - EENT Eyes: denies pain - Cardiovascular Reports shortness of breath - Gastrointestinal Reports abdominal pain, Reports bloating, Reports nausea, Reports vomiting - Integumentary Reports as per HPI - Psychiatric Reports hypersomnia Past Medical History Past Medical History: Atrial Fibrillation, Coronary Artery Disease (CAD), Cancer, Hypertension, Osteoarthritis (OA), Pneumonia, Prostate Disorder, Renal Disease Additional Past Medical History / Comment(s): pneumonia May 2020 after hernia surgery Last Myocardial Infarction Date:: unknown History of Any Multi-Drug Resistant Organisms: None Reported Past Surgical History: Cholecystectomy, Coronary Bypass/CABG, Heart Catheterization With Stent, Hernia Repair, Joint Replacement Additional Past Surgical History / Comment(s): triple bypass 14 years ago, aortic aneurysm repair, rt hip replacement, left inguinal hernia repair, unsure how many cardiac stents Cystoscopy on 10/26/22 (chronic pena placed) Past Anesthesia/Blood Transfusion Reactions: No Reported Reaction Date of Last Stent Placement:: unknown Past Psychological History: No Psychological Hx Reported Smoking Status: Never smoker Past Alcohol Use History: None Reported Additional Past Alcohol Use History / Comment(s): quit smoking 30 yrs. ago, 1ppd for 25 yrs. Past Drug Use History: None Reported - Past Family History Mother Family Medical History: No Reported History Father Family Medical History: Congestive Heart Failure (CHF) (Father at the age of 78 from CHF.), Hypertension Additional Family Medical History / Comment(s): Patient states that his parents never went to the doctor. He thinks his father of hypertensive disease. He does not know much about his mother. Denies any significant medical history in siblings, is and has kids with no significant medical. lives of at home. Brother(s) Family Medical History: No Reported History (patient has one brother no major issues.) Sister(s) Family Medical History: No Reported History (patient has 2 sisters no major medical problems) Son(s) Family Medical History: No Reported History (patient has 2 sons ok.) Daughter(s) Family Medical History: No Reported History (one daughter ok.) Medications and Allergies Home Medications Medication Instructions Recorded Confirmed Type Tamsulosin HCl [Flomax] 0.4 mg PO DAILY 10/29/22 01/01/23 History Apixaban [Eliquis] 2.5 mg PO BID #60 tab 11/03/22 01/01/23 Rx Pravastatin Sodium [Pravachol] 80 mg PO HS #60 tab 11/03/22 01/01/23 Rx Famotidine [Pepcid] 20 mg PO DAILY #60 tab 12/24/22 01/01/23 Rx Magnesium Oxide [Mag-Ox] 400 mg PO BID #60 tab 12/24/22 01/01/23 Rx Sodium Bicarbonate Tab 650 mg PO BID #60 tab 12/24/22 01/01/23 Rx Ondansetron [Zofran] 4 mg PO Q8H PRN 01/01/23 01/01/23 History carvediloL [Coreg*] 12.5 mg PO BID 01/01/23 01/01/23 History hydrALAZINE HCL [Apresoline] 50 mg PO TID@0900,1300,2100 01/01/23 01/01/23 History Allergies Allergy/AdvReac Type Severity Reaction Status Date / Time No Known Allergies Allergy Verified 01/01/23 14:37 Surgical - Exam Osteopathic Statement: *. No significant issues noted on an osteopathic structural exam other than those noted in the History and Physical/Consult. Vital Signs Temp Pulse Resp BP Pulse Ox 97.7 F 87 18 102/64 96 01/01/23 10:26 01/01/23 10:26 01/01/23 10:26 01/01/23 10:26 01/01/23 10:26 Patient Seen Date: 01/02/23 - General moderate distress - ENT normal pinna - Neck no masses - Respiratory increased effort - Cardiovascular Rhythm: regular - Abdomen Abdomen: soft, non tender, distended - Integumentary no rash - Neurologic confused Results - Labs 01/02/23 05:13 01/02/23 05:13 Abnormal Lab Results - Last 24 Hours (Table) 01/02/23 01/02/23 01/02/23 Range/Units 02:08 05:05 05:13 WBC 15.92 H (4.50-10.00) X 10*3/uL RBC 2.70 L (4.40-5.60) X 10*6/uL Hgb 7.9 L (13.0-17.0) d/dL Hct 25.0 L (39.6-50.0) % MCHC 31.6 L (32.0-37.0) d/dL RDW 15.0 H (11.5-14.5) % Neutrophils # 14.72 H (1.80-7.70) X 10*3/uL Lymphocytes # 0.36 L (0.90-5.00) X 10*3/uL Sodium (137-145) mmol/L Carbon Dioxide (22-30) mmol/L BUN (9-20) mg/dL Creatinine (0.66-1.25) mg/dL Glucose (74-99) mg/dL POC Glucose (mg/dL) 118 H 131 H (70-110) mg/dL Calcium (8.4-10.2) mg/dL Troponin I (0.000-0.034) ng/mL 01/02/23 01/02/23 Range/Units 05:13 05:13 WBC (4.50-10.00) X 10*3/uL RBC (4.40-5.60) X 10*6/uL Hgb (13.0-17.0) d/dL Hct (39.6-50.0) % MCHC (32.0-37.0) d/dL RDW (11.5-14.5) % Neutrophils # (1.80-7.70) X 10*3/uL Lymphocytes # (0.90-5.00) X 10*3/uL Sodium 133 L (137-145) mmol/L Carbon Dioxide 16 L (22-30) mmol/L BUN 98 H (9-20) mg/dL Creatinine 6.44 H (0.66-1.25) mg/dL Glucose 110 H (74-99) mg/dL POC Glucose (mg/dL) (70-110) mg/dL Calcium 6.8 L (8.4-10.2) mg/dL Troponin I 0.042 H* (0.000-0.034) ng/mL Diabetes panel 01/02/23 Range/Units 05:13 Sodium 133 L (137-145) mmol/L Potassium 4.4 (3.5-5.1) mmol/L Chloride 104 (98-107) mmol/L Carbon Dioxide 16 L (22-30) mmol/L BUN 98 H (9-20) mg/dL Creatinine 6.44 H (0.66-1.25) mg/dL Glucose 110 H (74-99) mg/dL Calcium 6.8 L (8.4-10.2) mg/dL Calcium panel 01/02/23 Range/Units 05:13 Calcium 6.8 L (8.4-10.2) mg/dL Pituitary panel 01/02/23 Range/Units 05:13 Sodium 133 L (137-145) mmol/L Potassium 4.4 (3.5-5.1) mmol/L Chloride 104 (98-107) mmol/L Carbon Dioxide 16 L (22-30) mmol/L BUN 98 H (9-20) mg/dL Creatinine 6.44 H (0.66-1.25) mg/dL Glucose 110 H (74-99) mg/dL Calcium 6.8 L (8.4-10.2) mg/dL Adrenal panel 01/02/23 Range/Units 05:13 Sodium 133 L (137-145) mmol/L Potassium 4.4 (3.5-5.1) mmol/L Chloride 104 (98-107) mmol/L Carbon Dioxide 16 L (22-30) mmol/L BUN 98 H (9-20) mg/dL Creatinine 6.44 H (0.66-1.25) mg/dL Glucose 110 H (74-99) mg/dL Calcium 6.8 L (8.4-10.2) mg/dL - Imaging Chest x-ray: image reviewed CT scan - abdomen: image reviewed CT scan - pelvis: image reviewed Assessment and Plan (1) Acute renal failure Narrative/Plan: Care per nephro Current Visit: Yes Status: Acute Code(s): N17.9 - ACUTE KIDNEY FAILURE, UNSPECIFIED SNOMED Code(s): 20497858 (2) SBO (small bowel obstruction) Narrative/Plan: More likely ileus secondary to pneumonia, consider small bowel followthru. Patient extremely poor surgical candidate due to multiple comorbidities Current Visit: Yes Status: Acute Code(s): K56.609 - UNSP INTESTNL OBST, UNSP TO PARTIAL VERSUS COMPLETE OBST SNOMED Code(s): 309494434 (3) Pneumonia Narrative/Plan: ABX, aggressive pulm toilet. Current Visit: No Status: Acute Code(s): J18.9 - PNEUMONIA, UNSPECIFIED ORGANISM SNOMED Code(s): 462315551
--- NOTE | 2023-01-02 12:27 | P.GSCN ---
History of Present Illness Consult date: 01/02/23 History of present illness: 82 yo male known to me for urine retention. He was evaluated for the urine retention and was found to have a bladder cancer. His surgery was delayed due to cardiac issues and poor health. He ended up in rehab only to be readmitted to the hospital recently for a uti with sepsis. Once that was cleared a I did a turbt to find a muscle invasive bladder cancer that obscured both ureteral orifices. He is now in the hospital with arf/crf and hydronephrosis. the patient continues to be weak as he has been from the outset.He also appears to have an ileus or sbo that would contribute to the arf/crf.he has had previous abdominal aortic aneurysm surgery which could contribute to a potential small bowel obstruction. Review of Systems ROS unobtainable: due to mental status - Constitutional Denies fever, Denies weight loss - EENT Eyes: denies blurred vision Ears, nose, mouth and throat: Denies dysphagia - Cardiovascular Denies chest pain, Denies shortness of breath - Respiratory Denies cough, Denies 7 - Gastrointestinal Reports as per HPI - Genitourinary Denies dysuria, Denies hematuria - Integumentary Denies rash, Denies unusual bruising - Neurological Denies headaches, Denies syncope - Hematologic/Lymphatic Denies easy bleeding, Denies easy bruising Past Medical History Past Medical History: Atrial Fibrillation, Coronary Artery Disease (CAD), Cancer, Hypertension, Osteoarthritis (OA), Pneumonia, Prostate Disorder, Renal Disease Additional Past Medical History / Comment(s): pneumonia May 2020 after hernia surgery Last Myocardial Infarction Date:: unknown History of Any Multi-Drug Resistant Organisms: None Reported Past Surgical History: Cholecystectomy, Coronary Bypass/CABG, Heart Catheterization With Stent, Hernia Repair, Joint Replacement Additional Past Surgical History / Comment(s): triple bypass 14 years ago, aortic aneurysm repair, rt hip replacement, left inguinal hernia repair, unsure how many cardiac stents Cystoscopy on 10/26/22 (chronic pena placed) Past Anesthesia/Blood Transfusion Reactions: No Reported Reaction Date of Last Stent Placement:: unknown Past Psychological History: No Psychological Hx Reported Smoking Status: Never smoker Past Alcohol Use History: None Reported Additional Past Alcohol Use History / Comment(s): quit smoking 30 yrs. ago, 1ppd for 25 yrs. Past Drug Use History: None Reported - Past Family History Mother Family Medical History: No Reported History Father Family Medical History: Congestive Heart Failure (CHF) (Father at the age of 78 from CHF.), Hypertension Additional Family Medical History / Comment(s): Patient states that his parents never went to the doctor. He thinks his father of hypertensive disease. He does not know much about his mother. Denies any significant medical history in siblings, is and has kids with no significant medical. lives of at home. Brother(s) Family Medical History: No Reported History (patient has one brother no major issues.) Sister(s) Family Medical History: No Reported History (patient has 2 sisters no major medical problems) Son(s) Family Medical History: No Reported History (patient has 2 sons ok.) Daughter(s) Family Medical History: No Reported History (one daughter ok.) Medications and Allergies Home Medications Medication Instructions Recorded Confirmed Type Tamsulosin HCl [Flomax] 0.4 mg PO DAILY 10/29/22 01/01/23 History Apixaban [Eliquis] 2.5 mg PO BID #60 tab 11/03/22 01/01/23 Rx Pravastatin Sodium [Pravachol] 80 mg PO HS #60 tab 11/03/22 01/01/23 Rx Famotidine [Pepcid] 20 mg PO DAILY #60 tab 12/24/22 01/01/23 Rx Magnesium Oxide [Mag-Ox] 400 mg PO BID #60 tab 12/24/22 01/01/23 Rx Sodium Bicarbonate Tab 650 mg PO BID #60 tab 12/24/22 01/01/23 Rx Ondansetron [Zofran] 4 mg PO Q8H PRN 01/01/23 01/01/23 History carvediloL [Coreg*] 12.5 mg PO BID 01/01/23 01/01/23 History hydrALAZINE HCL [Apresoline] 50 mg PO TID@0900,1300,2100 01/01/23 01/01/23 History Allergies Allergy/AdvReac Type Severity Reaction Status Date / Time No Known Allergies Allergy Verified 01/01/23 14:37 Surgical - Exam Vital Signs Temp Pulse Resp BP Pulse Ox 97.7 F 87 18 102/64 96 01/01/23 10:26 01/01/23 10:26 01/01/23 10:26 01/01/23 10:26 01/01/23 10:26 - General well developed, moderate pain, chronically ill - Neck trachea midline - Respiratory Shortness of breath - Cardiovascular Tachycardic - Abdomen NG tube Abdomen: distended - Genitourinary Indwelling catheter - Neurologic Sedated Results - Labs 01/02/23 05:13 01/02/23 05:13 Abnormal Lab Results - Last 24 Hours (Table) 01/01/23 01/01/23 01/01/23 Range/Units 10:32 10:32 11:05 WBC 12.0 H (3.8-10.6) k/uL RBC 2.98 L (4.30-5.90) m/uL Hgb 8.9 L (13.0-17.5) gm/dL Hct 26.4 L (39.0-53.0) % Neutrophils # 11.1 H (1.3-7.7) k/uL Lymphocytes # 0.3 L (1.0-4.8) k/uL Sodium 131 L (137-145) mmol/L Carbon Dioxide 17 L (22-30) mmol/L BUN 94 H (9-20) mg/dL Creatinine 6.54 H (0.66-1.25) mg/dL Glucose 104 H (74-99) mg/dL POC Glucose (mg/dL) (70-110) mg/dL Calcium 7.1 L (8.4-10.2) mg/dL Phosphorus 6.7 H (2.5-4.5) mg/dL Magnesium 3.5 H (1.6-2.3) mg/dL Total Protein 4.5 L (6.3-8.2) g/dL Albumin 2.5 L (3.5-5.0) g/dL Amylase 141 H (30-110) U/L Lipase 1104 H (23-300) U/L Urine Protein 1+ H (Negative) Urine Blood Moderate H (Negative) Ur Leukocyte Esterase Large H (Negative) Urine RBC 6 H (0-5) /hpf Urine WBC 48 H (0-5) /hpf Urine Bacteria Few H (None) /hpf Urine Mucus Rare H (None) /hpf 01/02/23 01/02/23 Range/Units 02:08 05:05 WBC (3.8-10.6) k/uL RBC (4.30-5.90) m/uL Hgb (13.0-17.5) gm/dL Hct (39.0-53.0) % Neutrophils # (1.3-7.7) k/uL Lymphocytes # (1.0-4.8) k/uL Sodium (137-145) mmol/L Carbon Dioxide (22-30) mmol/L BUN (9-20) mg/dL Creatinine (0.66-1.25) mg/dL Glucose (74-99) mg/dL POC Glucose (mg/dL) 118 H 131 H (70-110) mg/dL Calcium (8.4-10.2) mg/dL Phosphorus (2.5-4.5) mg/dL Magnesium (1.6-2.3) mg/dL Total Protein (6.3-8.2) g/dL Albumin (3.5-5.0) g/dL Amylase (30-110) U/L Lipase (23-300) U/L Urine Protein (Negative) Urine Blood (Negative) Ur Leukocyte Esterase (Negative) Urine RBC (0-5) /hpf Urine WBC (0-5) /hpf Urine Bacteria (None) /hpf Urine Mucus (None) /hpf Diabetes panel 01/01/23 Range/Units 10:32 Sodium 131 L (137-145) mmol/L Potassium 4.7 (3.5-5.1) mmol/L Chloride 100 (98-107) mmol/L Carbon Dioxide 17 L (22-30) mmol/L BUN 94 H (9-20) mg/dL Creatinine 6.54 H (0.66-1.25) mg/dL Glucose 104 H (74-99) mg/dL Calcium 7.1 L (8.4-10.2) mg/dL AST 26 (17-59) U/L ALT 11 (4-49) U/L Alkaline Phosphatase 49 (38-126) U/L Total Protein 4.5 L (6.3-8.2) g/dL Albumin 2.5 L (3.5-5.0) g/dL Calcium panel 01/01/23 Range/Units 10:32 Calcium 7.1 L (8.4-10.2) mg/dL Phosphorus 6.7 H (2.5-4.5) mg/dL Albumin 2.5 L (3.5-5.0) g/dL Pituitary panel 01/01/23 Range/Units 10:32 Sodium 131 L (137-145) mmol/L Potassium 4.7 (3.5-5.1) mmol/L Chloride 100 (98-107) mmol/L Carbon Dioxide 17 L (22-30) mmol/L BUN 94 H (9-20) mg/dL Creatinine 6.54 H (0.66-1.25) mg/dL Glucose 104 H (74-99) mg/dL Calcium 7.1 L (8.4-10.2) mg/dL Adrenal panel 01/01/23 Range/Units 10:32 Sodium 131 L (137-145) mmol/L Potassium 4.7 (3.5-5.1) mmol/L Chloride 100 (98-107) mmol/L Carbon Dioxide 17 L (22-30) mmol/L BUN 94 H (9-20) mg/dL Creatinine 6.54 H (0.66-1.25) mg/dL Glucose 104 H (74-99) mg/dL Calcium 7.1 L (8.4-10.2) mg/dL Total Bilirubin 0.9 (0.2-1.3) mg/dL AST 26 (17-59) U/L ALT 11 (4-49) U/L Alkaline Phosphatase 49 (38-126) U/L Total Protein 4.5 L (6.3-8.2) g/dL Albumin 2.5 L (3.5-5.0) g/dL - Imaging CT scan - abdomen: report reviewed, image reviewed CT scan - pelvis: report reviewed, image reviewed Assessment and Plan Assessment: Impression: This patient has multiple medical illnesses and at present has now acute renal failure on chronic renal failure. He either has a small bowel obstruction or an ileus. He has had previous major abdominal surgery. He has muscle invasive bladder cancer with a lateral hydronephrosis left greater than right. Recommendations. Him urologic standpoint I cannot place up stents transvesically is when I did the other tumor resection in the recent past the tumor had obscured the trigone and ureteral orifices. He would need nephrostomy tubes bilaterally. He could not tolerate this in his present condition. From a bladder cancer standpoint he would need radiation therapy has he would not be a candidate for cystectomy. At present he would not tolerate anything. I did discuss with the the status of the bladder as well as the obstruction of the kidneys. Unless he proves significantly with regard to the ileus/small bowel obstruction and medical illnesses he probably be better suited with hospice then invasive treatment. This has been discussed with the and she agrees at this point in time. If the patient improved significantly medically then nephrostomy tubes and potential treatment of the bladder would be considered but I doubt that he'll make it to this date given his overall condition. Time with Patient: Greater than 30
--- NOTE | 2023-01-02 16:23 | P.PN ---
Subjective Progress Note Date: 01/02/23 Patient is a 82-year-old male with a PMH of A. fib on Eliquis, HFrEF, CAD urinary retention status post indwelling Garcia catheter, acute kidney injury, type II DM, hypertension, hyperlipidemia, who presents to the emergency room with complaints of abdominal pain, nausea and vomiting. Of note, patient was recently hospitalized from 12/14-12/24 for MARION on CKD requiring TURP with Urology. His hospitalization was complicated with diverticulitis, small bowel obstruction and acute delirium which was managed conservatively by surgery. He was discharged to SNF when his symptoms improved and he was able to tolerate diet. In the ED, CBC showed WBC count of 12 and hemoglobin of 8.9. CMP showed sodium 131, bicarb 17, BUN 94, creatinine 6.54, glucose 104, calcium 7.1, albumin 2.5. Magnesium was 3.5. Amylase 141, lipase 1104. Urinalysis positive for moderate blood and large leukocyte esterase. Influenza, RSV, COVID-19 negative. CTAP was done which showed high-grade small bowel obstruction, anasarca, bilateral pleural effusion, extensive perirectal soft tissue thickening and stranding, severely thickened bladder wall with Garcia catheter, severe left hydronephrosis and moderate right hydronephrosis, aortic aneurysm measuring 4.4 cm and common iliac aneurysm measuring 2.7 cm on the left, pneumobilia, sigmoid diverticulosis, intramuscular hematoma of the right psoas major measuring 7 x 4.7 cm. Patient is admitted for further management and workup. 01/02 Patient was seen and examined. and daughter at bedside. A-team was called last night for respiratory distress. He was given Lasix 80 mg IV and transferred to for closer monitoring. NG tube was inserted for SBO to suction with bilious output. Troponin was also elevated at 0.42, 0.03, 0.037. EKG showed A-Fib with RVR. Cardiology was consulted and recommended IV beta octavio and hold AC, patient is high risk for any surgical intervention. Urology recommends bilateral nephrostomy tubes for definitive treatment but patient is currently unstable and would benefit from hospice. Nephrology recommends 2 amps of IV bicarb and possible need for hemodialysis. Surgery is also consulted with regard to his SBO recommending conservative management as patient is high risk for surgery. CBC shows WBC count of 15.92, Hg 7.9. BMP shows Na 133, bicarb 16, BUN 98, Cr 6.44, glucose 110 and Ca 6.8. CXR shows bilateral infiltrates, PNA vs pulmonary edema. I discussed the care of this patient with the and daughter extensively. Patient is appropriate for hospice at this time. He would not be a good candidate for hemodialysis given his extensive cardiac history. We will give him another dose of Lasix 80 mg IV in the mean time. After our encounter, RN informed me family would like to enroll in hospice. Consult has been placed. General: non toxic, moderate distress, appears at stated age Derm: warm, dry Head: atraumatic, normocephalic, symmetric, NG tube Eyes: EOMI, no lid lag, anicteric sclera Cardiovascular: good distal perfusion in all 4 extremities Lungs: Labored breathing Abdominal: distended, Ext: no gross muscle atrophy, no edema, no contractures Psych: Alert, oriented x 1-2 Acute hypoxic respiratory failure likely secondary to flash pulmonary edema Atrial fibrillation with RVR High-grade small bowel obstruction Acute kidney injury on chronic kidney disease with moderate to severe bilateral hydronephrosis Sepsis secondary to UTI with history of indwelling Garcia catheter Right psoas hematoma Metabolic acidosis Hyponatremia Elevated lipase and amylase Aortic aneurysm Systolic CHF with EF 20% Chronic conditions: CAD, type II DM, hypertension, hyperlipidemia Based on my assessment of this patient, this patient meets a high complexity level of care. Patient has an acute diagnosis of high grade SBO with MARION on CKD leading to metabolic derangements that poses a threat to life or bodily function. He is also found to have a right psoas hematoma. Acute hypoxic respiratory failure likely secondary to flash pulmonary edema: Lasix 80 mg IV BID. Family against HD at this time. Atrial fibrillation with RVR: Metoprolol 5 mg IV BID. Hold Eliquis. High-grade small bowel obstruction: NPO. NG tube to suction. Consult surgery. Acute kidney injury on chronic kidney disease with moderate to severe bilateral hydronephrosis: Multifactorial. Obstructive with pre-renal component (poor oral intake, N/V). Consult Urology. Sepsis secondary to UTI with history of indwelling Garcia catheter: Previous UCx + Pseudomonas. Cefepime 1g IV BID. Telemetry monitoring. UCx and BCx. Right psoas hematoma: Stop Eliquis. Consult surgery. Trend CBC. Transfuse if Hg < 7. Metabolic acidosis: Likely due to MARION on CKD. 2 amps sodium bicarbonate ordered today. Sodium bicarbonate 650 mg PO BID. Hyponatremia: Patient is hypervolemic. Monitor. Elevated lipase and amylase Aortic aneurysm: Outpatient monitoring. Systolic CHF with EF 20%: Cautious use of fluids. I have reviewed the following senior telecommunications consultant notes: Nephrology, Cardiology, Urology, Surgery note. I have reviewed the results of the following tests: CBC, BMP, Troponin, CXR. I have ordered the following tests: I have discussed the care of this patient with the following independent historian: I have independently interpreted the following test below: EKG and CXR as above. I have discussed the management of this patient with the following physician: Discussed with Dr. Kwok at bedside. Objective - Vital Signs Vital signs: Vital Signs Temp 97.6 F 01/02/23 08:00 Pulse 100 01/02/23 12:03 Resp 16 01/02/23 12:03 BP 101/63 01/02/23 12:03 Pulse Ox 93 L 01/02/23 12:03 FiO2 Intake & Output 01/01/23 01/02/23 01/02/23 18:59 06:59 18:59 Output Total 900 Balance -900 Weight 81.647 kg 81.647 kg Output: Urine 500 Emesis 400 Other: Voiding Method Indwelling Catheter Indwelling Catheter - Labs CBC & Chem 7: 01/02/23 05:13 01/02/23 05:13 Labs: Abnormal Lab Results - Last 24 Hours (Table) 01/02/23 01/02/23 01/02/23 Range/Units 02:08 05:05 05:13 WBC 15.92 H (4.50-10.00) X 10*3/uL RBC 2.70 L (4.40-5.60) X 10*6/uL Hgb 7.9 L (13.0-17.0) d/dL Hct 25.0 L (39.6-50.0) % MCHC 31.6 L (32.0-37.0) d/dL RDW 15.0 H (11.5-14.5) % Neutrophils # 14.72 H (1.80-7.70) X 10*3/uL Lymphocytes # 0.36 L (0.90-5.00) X 10*3/uL Sodium (137-145) mmol/L Carbon Dioxide (22-30) mmol/L BUN (9-20) mg/dL Creatinine (0.66-1.25) mg/dL Glucose (74-99) mg/dL POC Glucose (mg/dL) 118 H 131 H (70-110) mg/dL Calcium (8.4-10.2) mg/dL Troponin I (0.000-0.034) ng/mL 01/02/23 01/02/23 01/02/23 Range/Units 05:13 05:13 12:11 WBC (4.50-10.00) X 10*3/uL RBC (4.40-5.60) X 10*6/uL Hgb (13.0-17.0) d/dL Hct (39.6-50.0) % MCHC (32.0-37.0) d/dL RDW (11.5-14.5) % Neutrophils # (1.80-7.70) X 10*3/uL Lymphocytes # (0.90-5.00) X 10*3/uL Sodium 133 L (137-145) mmol/L Carbon Dioxide 16 L (22-30) mmol/L BUN 98 H (9-20) mg/dL Creatinine 6.44 H (0.66-1.25) mg/dL Glucose 110 H (74-99) mg/dL POC Glucose (mg/dL) (70-110) mg/dL Calcium 6.8 L (8.4-10.2) mg/dL Troponin I 0.042 H* 0.037 H* (0.000-0.034) ng/mL
[2023-01-02] MEDS: METOPROLOL TARTRATE 5 MG/5 ML VIAL IVP SCH (19:51)
[2023-01-02 23:36] LABS: % Iron Saturation 21.09 (15.00-50.00)
[2023-01-03] MEDS: PANTOPRAZOLE 40 MG/10 ML VIAL IVP SCH (07:46)
[2023-01-03] MEDS: METOPROLOL TARTRATE 5 MG/5 ML VIAL IVP SCH ×2 (07:48→19:49)
[2023-01-03] MEDS: CEFEPIME 1 GM in SODIUM CHLORIDE 0.9% 50 ML IVPB SCH ×2 (07:48→19:48)
[2023-01-03] MEDS: FAMOTIDINE 20 MG TAB PO SCH (07:49)
[2023-01-03] MEDS: SODIUM BICARBONATE TAB 650 MG TAB PO SCH ×2 (07:49→19:23)
[2023-01-03] MEDS: TAMSULOSIN 0.4 MG CAP.ER.24H PO SCH (07:49)
[2023-01-03] MEDS ORDERED: FUROSEMIDE 10 MG/ML 10 ML VIAL IV STA ×2 (08:30→10:48)
--- NOTE | 2023-01-03 09:08 | P.PN ---
Subjective Progress Note Date: 01/03/23 Patient has multiple medical illnesses he has multiple serious chronic medical comorbidities. He has pneumonia and urinary tract infection. He also has been diagnosed with muscle invasive bladder cancer. Bilateral hydronephrosis due to the that. The family has chosen hospice given he would not tolerate dialysis, nephrostomy tube blood along the crest treatment for his bladder cancer. The patient also has a significant ileus. Objective - Vital Signs Vital signs: Vital Signs Temp 97.6 F 01/02/23 08:00 Pulse 100 01/03/23 04:00 Resp 16 01/03/23 04:00 BP 126/73 01/03/23 04:00 Pulse Ox 94 L 01/03/23 04:00 FiO2 Intake & Output 01/02/23 01/03/23 01/03/23 18:59 06:59 18:59 Intake Total 0 Output Total 200 475 Balance -200 -475 Intake: Oral 0 Output: Urine 200 475 Other: Voiding Method Indwelling Catheter Indwelling Catheter - Labs CBC & Chem 7: 01/02/23 05:13 01/02/23 05:13 Labs: Abnormal Lab Results - Last 24 Hours (Table) 01/02/23 01/02/23 Range/Units 12:11 12:11 Iron 27 L (65-175) UG/DL TIBC 128 L (228-460) UG/DL Transferrin 91.6 L (204.0-354.0) mg/dL Ferritin 804.0 H (22.0-322.0) ng/mL Troponin I 0.037 H* (0.000-0.034) ng/mL Microbiology - Last 24 Hours (Table) 01/01/23 12:55 Blood Culture - Preliminary Blood 01/01/23 13:05 Blood Culture - Preliminary Blood Assessment and Plan Assessment: Impression: This patient has serious multiple medical morbidities including pneumonia, urinary infection, advanced cardiac issues, muscle invasive bladder cancer with bilateral hydronephrosis. Acute on chronic renal failure. Recommendations: The patient has chosen hospice which I think is appropriate. From a urologic standpoint he would need bilateral nephrostomy tubes with stents would not be possible. He would need radiation therapy at minimum for his bladder cancer. The patient will not tolerate any of this. I discussed with the yesterday hospice therapy medical staff has also done that and the family chose which I think is appropriate. If Further urologic care is required please contact me.
[2023-01-03 10:17] VITALS: BMI 24.4
[2023-01-03] MEDS ORDERED: SODIUM FERRIC GLUCONAT-SUCROSE 125 MG in SODIUM CHLORIDE 0.9% 100 ML IVPB ONE (10:47)
--- NOTE | 2023-01-03 10:49 | P.PN ---
Subjective Patient is seen in follow-up for acute kidney injury on chronic kidney disease. Morning labs pending. Urine output documented a 675 mL dated for today. Hemodynamically stable. Resting in bed. Poor historian. Vital signs are stable. General: No acute distress. HEENT: Head exam is unremarkable. LUNGS: Scattered rhonchi. HEART: Rate and Rhythm are regular. ABDOMEN: Distention noted. EXTREMITITES: Trace edema. Objective - Vital Signs Vital signs: Vital Signs Temp 96.7 F L 01/03/23 08:00 Pulse 102 H 01/03/23 08:00 Resp 16 01/03/23 08:00 BP 130/72 01/03/23 08:00 Pulse Ox 91 L 01/03/23 08:00 FiO2 Intake & Output 01/02/23 01/03/23 01/03/23 18:59 06:59 18:59 Intake Total 0 Output Total 200 475 Balance -200 -475 Weight 81.647 kg Intake: Oral 0 Output: Urine 200 475 Other: Voiding Method Indwelling Catheter Indwelling Catheter - Labs CBC & Chem 7: 01/02/23 05:13 01/02/23 05:13 Labs: Abnormal Lab Results - Last 24 Hours (Table) 01/02/23 01/02/23 Range/Units 12:11 12:11 Iron 27 L (65-175) UG/DL TIBC 128 L (228-460) UG/DL Transferrin 91.6 L (204.0-354.0) mg/dL Ferritin 804.0 H (22.0-322.0) ng/mL Troponin I 0.037 H* (0.000-0.034) ng/mL Microbiology - Last 24 Hours (Table) 01/01/23 12:55 Blood Culture - Preliminary Blood 01/01/23 13:05 Blood Culture - Preliminary Blood Assessment and Plan Plan: Assessment: 1. Acute kidney injury secondary to ATN. Creatinine 6.4 as of yesterday. C reatinine 1.1 in August 2022. 2. Bilateral hydronephrosis with history of bladder cancer status post TURBT 12/18/22. Has chronic Garcia catheter. Seen by urology. 3. Metabolic acidosis secondary to acute kidney injury. On oral bicarb. 4. Anemia Iron deficiency noted. 5. Acute on chronic systolic CHF ejection fraction of 20% with moderate to severe mitral and tricuspid regurgitation. 6. Small bowel obstruction Surgery following. Plan: Continue to monitor renal function and urine output. IV iron 1 dose today. Add Aranesp. Repeat IV Lasix 80 mg once today. Family considering hospice. Refused renal replacement therapy.
--- NOTE | 2023-01-03 10:55 | P.PN ---
Subjective Progress Note Date: 01/03/23 PROGRESS NOTE The patient is an 82-year-old male [facility] progressive nausea and vomiting and abdominal pain. He has a history of dementia and the history is obtained from the daughter. The patient is followed on a regular basis by Dr. Leggett, he has a history of CAD status post CABG in 2006, abdominal aortic aneurysm endovascular repair, chronic persistent atrial fibrillation and mitral regurgitation cardiomyopathy who presented recently to the hospital with symptoms of generalized fatigue was found to have a bladder mass and worsening renal function. He had a prolonged hospitalization during his last admission and had an echocardiogram with ejection fraction reported to 20% with moderate to severe mitral and tricuspid regurgitation. According to the daughter is been complaining for the last few days of progressive abdominal discomfort, nausea and vomiting. On presentation he was diagnosed with small bowel obstruction, dilatation of his bowels. There is worsening renal failure and his troponin is mildly elevated. There is no clear complaining of chest d iscomfort. He has dyspnea on exertion but no dizziness or palpitations. He continues to be in atrial fibrillation and has been anticoagulated in the past. There was signs of possible small bowel obstruction on the computed tomography scan obtain in December during his last admission. He has a history of hyperlipidemia and hypertension. On presentation his creatinine is up to 6.44 with a BUN of 98. His WBC was 15.92. January 03: The patient remains confused and not able to answer questions. The family has made the decision that the patient is no code and being evaluated for possible hospice care. Hemodynamically there is no significant changes. He continues to be in atrial fibrillation. He was evaluated by the surgical team and urology. There is no evidence of malignant arrhythmia. Medications: Metoprolol 5 mg IV twice a day, Flomax, sodium bicarb, cefepime PHYSICAL EXAMINATION: Blood pressure 130/70 heart rate 90-100, confused LUNGS: Clear to auscultation HEART: Irregular rate and rhythm, S1, S2. No S3. Systolic ejection murmur ABDOMEN: Soft, nontender, no organomegaly EXTREMETIES: No edema IMPRESSION: 1. Small bowel obstruction 2. Acute on chronic kidney injury 3. Status post CABG 4. Severe cardiomyopathy 5. Chronic persistent atrial fibrillation PLAN: 1. Family is making a decision regarding hospice care 2. Continue present treatment 3. We will see him on as needed basis, please feel free to call us for any question Objective - Vital Signs Vital signs: Vital Signs Temp 96.7 F L 01/03/23 08:00 Pulse 102 H 01/03/23 08:00 Resp 16 01/03/23 08:00 BP 130/72 01/03/23 08:00 Pulse Ox 91 L 01/03/23 08:00 FiO2 Intake & Output 01/02/23 01/03/23 01/03/23 18:59 06:59 18:59 Intake Total 0 Output Total 200 475 Balance -200 -475 Weight 81.647 kg Intake: Oral 0 Output: Urine 200 475 Other: Voiding Method Indwelling Catheter Indwelling Catheter - Labs CBC & Chem 7: 01/02/23 05:13 01/02/23 05:13 Labs: Abnormal Lab Results - Last 24 Hours (Table) 01/02/23 01/02/23 Range/Units 12:11 12:11 Iron 27 L (65-175) UG/DL TIBC 128 L (228-460) UG/DL Transferrin 91.6 L (204.0-354.0) mg/dL Ferritin 804.0 H (22.0-322.0) ng/mL Troponin I 0.037 H* (0.000-0.034) ng/mL Microbiology - Last 24 Hours (Table) 01/01/23 12:55 Blood Culture - Preliminary Blood 01/01/23 13:05 Blood Culture - Preliminary Blood
[2023-01-03 12:08] LABS: African American GFR (CKD) 7 (>60 ml/min/1.73 sqM); Anion Gap 17 mmol/L; Calcium 7.3 mg/dL (8.4-10.2); Carbon Dioxide 17 mmol/L (22-30); Chloride 106 mmol/L (98-107); Glucose 108 mg/dL (74-99); Non-African American GFR(CKD) 6 (>60 ml/min/1.73 sqM); Potassium 4.7 mmol/L (3.5-5.1); Sodium 140 mmol/L (137-145)
[2023-01-03 12:23] LABS: Basophils % (A) 0 %; Eosinophils % (A) 0 %; HCT 23.6 % (39.0-53.0); HGB 7.6 gm/dL (13.0-17.5); Hypochromasia Slight; Lymphocytes # (A) 0.3 k/uL (1.0-4.8); Lymphocytes % (A) 2 %; MCH 29.3 pg (25.0-35.0); MCHC 32.3 g/dL (31.0-37.0); MCV 90.8 fL (80.0-100.0); Mean Platelet Volume 8.5; Monocytes # (A) 0.4 k/uL (0-1.0); Monocytes % (A) 3 %; Neutrophils % (A) 94 %; Platelet Count 195 k/uL (150-450); RDW 14.9 % (11.5-15.5); WBC 11.7 k/uL (3.8-10.6)
[2023-01-03 12:31] LABS: Blood Urea Nitrogen 115 mg/dL (9-20)
[2023-01-03] MEDS ORDERED: DARBEPOETIN ALFA 40 MCG/0.4 ML SYRINGE SQ SCH (13:00)
--- NOTE | 2023-01-03 13:46 | P.PN ---
Subjective Progress Note Date: 01/03/23 Patient is a 82-year-old male with a PMH of A. fib on Eliquis, HFrEF, CAD urinary retention status post indwelling Garcia catheter, acute kidney injury, type II DM, hypertension, hyperlipidemia, who presents to the emergency room with complaints of abdominal pain, nausea and vomiting. Of note, patient was recently hospitalized from 12/14-12/24 for MARION on CKD requiring TURP with Urology. His hospitalization was complicated with diverticulitis, small bowel obstruction and acute delirium which was managed conservatively by surgery. He was discharged to SNF when his symptoms improved and he was able to tolerate diet. In the ED, CBC showed WBC count of 12 and hemoglobin of 8.9. CMP showed sodium 131, bicarb 17, BUN 94, creatinine 6.54, glucose 104, calcium 7.1, albumin 2.5. Magnesium was 3.5. Amylase 141, lipase 1104. Urinalysis positive for moderate blood and large leukocyte esterase. Influenza, RSV, COVID-19 negative. CTAP was done which showed high-grade small bowel obstruction, anasarca, bilateral pleural effusion, extensive perirectal soft tissue thickening and stranding, severely thickened bladder wall with Garcia catheter, severe left hydronephrosis and moderate right hydronephrosis, aortic aneurysm measuring 4.4 cm and common iliac aneurysm measuring 2.7 cm on the left, pneumobilia, sigmoid diverticulosis, intramuscular hematoma of the right psoas major measuring 7 x 4.7 cm. Patient is admitted for further management and workup. 01/02 Patient was seen and examined. and daughter at bedside. A-team was called last night for respiratory distress. He was given Lasix 80 mg IV and transferred to for closer monitoring. NG tube was inserted for SBO to suction with bilious output. Troponin was also elevated at 0.42, 0.03, 0.037. EKG showed A-Fib with RVR. Cardiology was consulted and recommended IV beta octavio and hold AC, patient is high risk for any surgical intervention. Urology recommends bilateral nephrostomy tubes for definitive treatment but patient is currently unstable and would benefit from hospice. Nephrology recommends 2 amps of IV bicarb and possible need for hemodialysis. Surgery is also consulted with regard to his SBO recommending conservative management as patient is high risk for surgery. CBC shows WBC count of 15.92, Hg 7.9. BMP shows Na 133, bicarb 16, BUN 98, Cr 6.44, glucose 110 and Ca 6.8. CXR shows bilateral infiltrates, PNA vs pulmonary edema. I discussed the care of this patient with the and daughter extensively. Patient is appropriate for hospice at this time. He would not be a good candidate for hemodialysis given his extensive cardiac history. We will give him another dose of Lasix 80 mg IV in the mean time. After our encounter, RN informed me family would like to enroll in hospice. Consult has been placed. 01/03 Patient was seen and examined. Patient is obtunded. NG tube pulled out last night. CBC shows WBC count 11.7, Hg 7.6. BMP shows bicarb 17, BUN 115, Cr 7.13, glucose 108, Ca 7.3. Iron studies shows Fe 27, Ferritin 804. Case was discussed with and daughter. They are going forward with hospice and comfort care. Patient [facility] from [facility] hospice. Discussed with KYM Hernández. General: non toxic, no distress, appears at stated age Derm: warm, dry Head: atraumatic, normocephalic, symmetric Eyes: EOMI, no lid lag, anicteric sclera Cardiovascular: good distal perfusion in all 4 extremities Lungs: Labored breathing Abdominal: distended, Ext: no gross muscle atrophy, no edema, no contractures Psych: Obtunded Acute hypoxic respiratory failure likely secondary to flash pulmonary edema Atrial fibrillation with RVR High-grade small bowel obstruction Acute kidney injury on chronic kidney disease with moderate to severe bilateral hydronephrosis Sepsis secondary to UTI with history of indwelling Garcia catheter Right psoas hematoma Metabolic acidosis Hyponatremia Elevated lipase and amylase Aortic aneurysm Systolic CHF with EF 20% Chronic conditions: CAD, type II DM, hypertension, hyperlipidemia Based on my assessment of this patient, this patient meets a high complexity level of care. Patient has an acute diagnosis of high grade SBO with MARION on CKD leading to metabolic derangements that poses a threat to life or bodily function. He is also found to have a right psoas hematoma. Acute hypoxic respiratory failure likely secondary to flash pulmonary edema: Lasix 80 mg IV today. Family against HD at this time. Atrial fibrillation with RVR: Metoprolol 5 mg IV BID. Hold Eliquis. Cardiology on board. High-grade small bowel obstruction: NPO. Patient is poor candidate for surgery. Surgery on board. Acute kidney injury on chronic kidney disease with moderate to severe bilateral hydronephrosis: Multifactorial. Obstructive with pre-renal component (poor oral intake, N/V). Urology on board. Patient is poor candidate for surgery. Sepsis secondary to UTI with history of indwelling Garcia catheter: Previous UCx + Pseudomonas. Cefepime 1g IV BID. Telemetry monitoring. UCx and BCx. Right psoas hematoma: Stop Eliquis. Transfuse if Hg < 7. Metabolic acidosis: Likely due to MARION on CKD. Sodium bicarbonate 650 mg PO BID. Hyponatremia: Patient is hypervolemic. Monitor. Elevated lipase and amylase Aortic aneurysm Systolic CHF with EF 20%: Cautious use of fluids. I have reviewed the following [employer] financial[employer] consultant notes: Nephrology, Cardiology note. I have reviewed the results of the following tests: CBC, BMP I have ordered the following tests: I have discussed the care of this patient with the following independent historian: Case discussed with RN Betty, and daughter. I have independently interpreted the following test below: I have discussed the management of this patient with the following physician: Discussed with Dr. Kwok at bedside. Objective - Vital Signs Vital signs: Vital Signs Temp 97.1 F L 01/03/23 12:13 Pulse 86 01/03/23 12:13 Resp 18 01/03/23 12:13 BP 129/72 01/03/23 12:13 Pulse Ox 93 L 01/03/23 12:13 FiO2 Intake & Output 01/02/23 01/03/23 01/03/23 18:59 06:59 18:59 Intake Total 0 Output Total 200 475 350 Balance -200 -475 -350 Weight 81.647 kg Intake: Oral 0 Output: Urine 200 475 350 Other: Voiding Method Indwelling Catheter Indwelling Catheter - Labs CBC & Chem 7: 01/03/23 09:34 01/03/23 09:34 Labs: Abnormal Lab Results - Last 24 Hours (Table) 01/02/23 01/02/23 01/03/23 Range/Units 12:11 12:11 09:34 WBC (3.8-10.6) k/uL RBC (4.30-5.90) m/uL Hgb (13.0-17.5) gm/dL Hct (39.0-53.0) % Neutrophils # (1.3-7.7) k/uL Lymphocytes # (1.0-4.8) k/uL Carbon Dioxide 17 L (22-30) mmol/L BUN 115 H* (9-20) mg/dL Creatinine 7.13 H* (0.66-1.25) mg/dL Glucose 108 H (74-99) mg/dL Calcium 7.3 L (8.4-10.2) mg/dL Iron 27 L (65-175) UG/DL TIBC 128 L (228-460) UG/DL Transferrin 91.6 L (204.0-354.0) mg/dL Ferritin 804.0 H (22.0-322.0) ng/mL Troponin I 0.037 H* (0.000-0.034) ng/mL 01/03/23 Range/Units 09:34 WBC 11.7 H (3.8-10.6) k/uL RBC 2.60 L (4.30-5.90) m/uL Hgb 7.6 L (13.0-17.5) gm/dL Hct 23.6 L (39.0-53.0) % Neutrophils # 11.0 H (1.3-7.7) k/uL Lymphocytes # 0.3 L (1.0-4.8) k/uL Carbon Dioxide (22-30) mmol/L BUN (9-20) mg/dL Creatinine (0.66-1.25) mg/dL Glucose (74-99) mg/dL Calcium (8.4-10.2) mg/dL Iron (65-175) UG/DL TIBC (228-460) UG/DL Transferrin (204.0-354.0) mg/dL Ferritin (22.0-322.0) ng/mL Troponin I (0.000-0.034) ng/mL Microbiology - Last 24 Hours (Table) 01/01/23 12:55 Blood Culture - Preliminary Blood 01/01/23 13:05 Blood Culture - Preliminary Blood
--- NOTE | 2023-01-03 15:19 | P.PN ---
Subjective Progress Note Date: 01/03/23 CHIEF COMPLAINT: Abnormal CT for bowel obstruction. HISTORY OF PRESENT ILLNESS: The patient is a 82-year-old male with confusion who was admitted for acute kidney injury following TURP. Imaging studies were obtained for risk for bowel obstruction. He is resting comfortably. Denies abdominal pain. ROS: Had previous emesis. No bowel movements. No fevers or chills. No new chest pain. No productive sputum PHYSICAL EXAM: VITAL SIGNS: Reviewed CONSTITUTIONAL: Well developed and in no acute distress. EYES: Conjuctivae without sclera icterus. Extraocular movements grossly intact. HEAD, EARS, NOSE, THROAT: Moist buccal mucosa. Head is atraumatic, normocephalic. Hears conversational speech. No nasal drainage. RESPIRATORY: Non-labored respirations and equal bilateral excursions. CARDIOVASCULAR: Palpable 2+ radial pulses. ABDOMEN: Nontender abdomen. Nondistended. MUSCULOSKELETAL: No gross deformity of the lower extremities noted. No clubbing. No cyanosis. SKIN: Good skin turgor. Well perfused. NEUROLOGIC: Cranial nerves II through XII grossly intact. No focal or lateralizing signs. PSYCH: Flat affect. Oriented to self. CLINICAL LABS: Reviewed. WBC count 15,000-11,000, leukocytosis. Creatinine elevated 6.4-7.13. Hemoglobin low 7.6, anemia STUDIES: CT of the abdomen and pelvis and an primary review findings more consistent with ileus. ASSESSMENT: 1. Abnormal computed tomography scan for bowel obstruction versus ileus 2. Acute renal failure 3. Anemia 4. Leukocytosis PLAN: 1. Patient is confused with nontender abdomen. CT reviewed appears likely ileus. Recommend small bowel follow through 2. Recommend lactic acid level. 3. Recommend supportive care. Objective - Vital Signs Vital signs: Vital Signs Temp 97.1 F L 01/03/23 12:13 Pulse 86 01/03/23 12:13 Resp 18 01/03/23 12:13 BP 129/72 01/03/23 12:13 Pulse Ox 93 L 01/03/23 12:13 FiO2 Intake & Output 01/02/23 01/03/23 01/03/23 18:59 06:59 18:59 Intake Total 0 Output Total 200 766 635 Balance -264 -656 -577 Weight 81.647 kg Intake: Oral 0 Output: Urine 200 317 635 Other: Voiding Method Indwelling Catheter Indwelling Catheter - Labs CBC & Chem 7: 01/03/23 09:34 01/03/23 09:34 Labs: Abnormal Lab Results - Last 24 Hours (Table) 01/02/23 01/03/23 01/03/23 Range/Units 12:11 09:34 09:34 WBC 11.7 H (3.8-10.6) k/uL RBC 2.60 L (4.30-5.90) m/uL Hgb 7.6 L (13.0-17.5) gm/dL Hct 23.6 L (39.0-53.0) % Neutrophils # 11.0 H (1.3-7.7) k/uL Lymphocytes # 0.3 L (1.0-4.8) k/uL Carbon Dioxide 17 L (22-30) mmol/L BUN 115 H* (9-20) mg/dL Creatinine 7.13 H* (0.66-1.25) mg/dL Glucose 108 H (74-99) mg/dL Calcium 7.3 L (8.4-10.2) mg/dL Iron 27 L (65-175) UG/DL TIBC 128 L (228-460) UG/DL Transferrin 91.6 L (204.0-354.0) mg/dL Ferritin 804.0 H (22.0-322.0) ng/mL Microbiology - Last 24 Hours (Table) 01/01/23 12:55 Blood Culture - Preliminary Blood 01/01/23 13:05 Blood Culture - Preliminary Blood
[2023-01-03] MEDS ORDERED: SODIUM BICARB 8.4% 50 ML SYR (1 MEQ/ML) IV STA (15:23)
[2023-01-04 09:09] LABS: African American GFR (CKD) 7 (>60 ml/min/1.73 sqM); Anion Gap 13 mmol/L; Calcium 7.4 mg/dL (8.4-10.2); Carbon Dioxide 22 mmol/L (22-30); Chloride 108 mmol/L (98-107); Glucose 94 mg/dL (74-99); Magnesium 3.9 mg/dL (1.6-2.3); Non-African American GFR(CKD) 6 (>60 ml/min/1.73 sqM); Potassium 3.8 mmol/L (3.5-5.1); Sodium 143 mmol/L (137-145)
[2023-01-04 09:16] LABS: Blood Urea Nitrogen 119 mg/dL (9-20)
[2023-01-04] MEDS: FAMOTIDINE 20 MG TAB PO SCH (09:45)
[2023-01-04] MEDS: CEFEPIME 1 GM in SODIUM CHLORIDE 0.9% 50 ML IVPB SCH (09:45)
[2023-01-04] MEDS: PANTOPRAZOLE 40 MG/10 ML VIAL IVP SCH (09:45)
[2023-01-04] MEDS: TAMSULOSIN 0.4 MG CAP.ER.24H PO SCH (09:46)
[2023-01-04] MEDS: SODIUM BICARBONATE TAB 650 MG TAB PO SCH ×2 (09:46→19:14)
[2023-01-04] MEDS: METOPROLOL TARTRATE 5 MG/5 ML VIAL IVP SCH ×2 (09:47→19:29)
--- NOTE | 2023-01-04 10:04 | XR ---
EXAMINATION TYPE: XR abdomen 2V DATE OF EXAM: 01/04/2023 9:50 AM INDICATION: Patient age:Male; 82 years old; Reason for study: bowel obstruction; PHH. COMPARISON: None. TECHNIQUE: Two views of the abdomen were obtained. FINDINGS: Previous dilated loop of bowel in the left abdomen on 08/31/2022 is a longer visualized. The bowel gas pattern is nonspecific without dilated loops of small or large bowel. There is no evidence for organomegaly or pneumoperitoneum. The osseous structures are intact. Fecal material and gas ar e demonstrated throughout the colon and rectum. Right hip arthroplasty changes which appear intact. Multilevel degeneration changes of the spine. Atherosclerosis of the arterial vasculature. IMPRESSION: Resolution of previously dilated loops of bowel from prior exam.
--- NOTE | 2023-01-04 10:22 | P.PN ---
Subjective Patient is seen in follow-up for acute kidney injury on chronic kidney disease. No improvement in renal function. Nonoliguric. Hemodynamically stable. Resting in bed. Poor historian. Vital signs are stable. General: No acute distress. HEENT: Head exam is unremarkable. LUNGS: Scattered rhonchi. HEART: Rate and Rhythm are regular. ABDOMEN: Distention noted. EXTREMITITES: Trace edema. Objective - Vital Signs Vital signs: Vital Signs Temp 98.6 F 01/04/23 09:45 Pulse 99 01/04/23 09:45 Resp 14 01/04/23 09:45 BP 134/74 01/04/23 09:45 Pulse Ox 93 L 01/04/23 09:45 FiO2 Intake & Output 01/03/23 01/04/23 01/04/23 18:59 06:59 18:59 Output Total 935 825 Balance -935 -825 Weight 81.647 kg Output: Urine 935 825 Other: Voiding Method Indwelling Catheter Indwelling Catheter - Labs CBC & Chem 7: 01/03/23 09:34 01/04/23 08:23 Labs: Abnormal Lab Results - Last 24 Hours (Table) 01/03/23 01/03/23 01/04/23 Range/Units 09:34 09:34 08:23 WBC 11.7 H (3.8-10.6) k/uL RBC 2.60 L (4.30-5.90) m/uL Hgb 7.6 L (13.0-17.5) gm/dL Hct 23.6 L (39.0-53.0) % Neutrophils # 11.0 H (1.3-7.7) k/uL Lymphocytes # 0.3 L (1.0-4.8) k/uL Chloride 108 H (98-107) mmol/L Carbon Dioxide 17 L (22-30) mmol/L BUN 115 H* 119 H* (9-20) mg/dL Creatinine 7.13 H* 7.47 H* (0.66-1.25) mg/dL Glucose 108 H (74-99) mg/dL Calcium 7.3 L 7.4 L (8.4-10.2) mg/dL Phosphorus 7.0 H (2.5-4.5) mg/dL Magnesium 3.9 H (1.6-2.3) mg/dL Microbiology - Last 24 Hours (Table) 01/01/23 13:05 Blood Culture - Preliminary Blood 01/01/23 12:55 Blood Culture - Preliminary Blood 01/01/23 18:11 Urine Culture - Final Urine,Catheterized Enterococcus faecalis Assessment and Plan Plan: Assessment: 1. Acute kidney injury secondary to ATN. Creatinine 7.47 today. Nonoliguric. Creatinine 1.1 in August 2022. 2. Bilateral hydronephrosis with history of bladder cancer status post TURBT 12/18/22. Has chronic Garcia catheter. Seen by urology. 3. Metabolic acidosis secondary to acute kidney injury. On oral bicarb. Better. 4. Anemia Iron deficiency noted. Status post IV iron. On Aranesp. 5. Acute on chronic systolic CHF ejection fraction of 20% with moderate to severe mitral and tricuspid regurgitation. 6. Small bowel obstruction Surgery following. Plan: Continue to monitor renal function and urine output. Family considering hospice. Refused renal replacement therapy. Add IV Lasix.
--- NOTE | 2023-01-04 11:58 | P.PN ---
Subjective Progress Note Date: 01/04/23 CHIEF COMPLAINT: Abnormal CT for bowel obstruction. HISTORY OF PRESENT ILLNESS: The patient is a 82-year-old male with confusion who was admitted for acute kidney injury following TURP. He is resting comfortably. ROS: No fevers or chills. No new chest pain. PHYSICAL EXAM: VITAL SIGNS: Reviewed CONSTITUTIONAL: Well developed and in no acute distress. EYES: Conjuctivae without sclera icterus. Extraocular movements grossly intact. HEAD, EARS, NOSE, THROAT: Moist buccal mucosa. Head is atraumatic, normocephalic. Hears conversational speech. No nasal drainage. RESPIRATORY: Non-labored respirations and equal bilateral excursions. CARDIOVASCULAR: Palpable 2+ radial pulses. ABDOMEN: Nontender abdomen. Nondistended. MUSCULOSKELETAL: No gross deformity of the lower extremities noted. No clubbing. No cyanosis. SKIN: Good skin turgor. Well perfused. NEUROLOGIC: Cranial nerves II through XII grossly intact. No focal or lateralizing signs. PSYCH: Flat affect. Oriented to self. CLINICAL LABS: Reviewed. Creatinine elevated 7.17 to 7.47. Lactic acid level normal 0.8 STUDIES: Abdominal x-ray independently reviewed without bowel obstruction. ASSESSMENT: 1. Abnormal computed tomography scan for bowel obstruction versus ileus 2. Acute renal failure 3. Anemia 4. Leukocytosis PLAN: 1. Final results of abdominal x-ray confirms resolution of bowel obstruction. May start diet. 2. Start dysphagia diet, ground Objective - Vital Signs Vital signs: Vital Signs Temp 98.6 F 01/04/23 09:45 Pulse 99 01/04/23 09:45 Resp 14 01/04/23 09:45 BP 134/74 01/04/23 09:45 Pulse Ox 93 L 01/04/23 09:45 FiO2 Intake & Output 01/03/23 01/04/23 01/04/23 18:59 06:59 18:59 Output Total 935 825 500 Balance -935 825 -500 Weight 81.647 kg Output: Urine 935 825 500 Other: Voiding Method Indwelling Catheter Indwelling Catheter - Labs CBC & Chem 7: 01/03/23 09:34 01/04/23 08:23 Labs: Abnormal Lab Results - Last 24 Hours (Table) 01/03/23 01/03/23 01/04/23 Range/Units 09:34 09:34 08:23 WBC 11.7 H (3.8-10.6) k/uL RBC 2.60 L (4.30-5.90) m/uL Hgb 7.6 L (13.0-17.5) gm/dL Hct 23.6 L (39.0-53.0) % Neutrophils # 11.0 H (1.3-7.7) k/uL Lymphocytes # 0.3 L (1.0-4.8) k/uL Chloride 108 H (98-107) mmol/L Carbon Dioxide 17 L (22-30) mmol/L BUN 115 H* 119 H* (9-20) mg/dL Creatinine 7.13 H* 7.47 H* (0.66-1.25) mg/dL Glucose 108 H (74-99) mg/dL Calcium 7.3 L 7.4 L (8.4-10.2) mg/dL Phosphorus 7.0 H (2.5-4.5) mg/dL Magnesium 3.9 H (1.6-2.3) mg/dL Microbiology - Last 24 Hours (Table) 01/01/23 13:05 Blood Culture - Preliminary Blood 01/01/23 12:55 Blood Culture - Preliminary Blood 01/01/23 18:11 Urine Culture - Final Urine,Catheterized Enterococcus faecalis
[2023-01-04] MEDS: FUROSEMIDE 10 MG/ML 10 ML VIAL IV SCH (12:03)
--- NOTE | 2023-01-04 15:26 | P.PN ---
Subjective Progress Note Date: 01/04/23 Patient is a 82-year-old male with a PMH of A. fib on Eliquis, HFrEF, CAD urinary retention status post indwelling Garcia catheter, acute kidney injury, type II DM, hypertension, hyperlipidemia, who presents to the emergency room with complaints of abdominal pain, nausea and vomiting. Of note, patient was recently hospitalized from 12/14-12/24 for MARION on CKD requiring TURP with Urology. His hospitalization was complicated with diverticulitis, small bowel obstruction and acute delirium which was managed conservatively by surgery. He was discharged to SNF when his symptoms improved and he was able to tolerate diet. In the ED, CBC showed WBC count of 12 and hemoglobin of 8.9. CMP showed sodium 131, bicarb 17, BUN 94, creatinine 6.54, glucose 104, calcium 7.1, albumin 2.5. Magnesium was 3.5. Amylase 141, lipase 1104. Urinalysis positive for moderate blood and large leukocyte esterase. Influenza, RSV, COVID-19 negative. CTAP was done which showed high-grade small bowel obstruction, anasarca, bilateral pleural effusion, extensive perirectal soft tissue thickening and stranding, severely thickened bladder wall with Garcia catheter, severe left hydronephrosis and moderate right hydronephrosis, aortic aneurysm measuring 4.4 cm and common iliac aneurysm measuring 2.7 cm on the left, pneumobilia, sigmoid diverticulosis, intramuscular hematoma of the right psoas major measuring 7 x 4.7 cm. Patient is admitted for further management and workup. 01/02 Patient was seen and examined. and daughter at bedside. A-team was called last night for respiratory distress. He was given Lasix 80 mg IV and transferred to for closer monitoring. NG tube was inserted for SBO to suction with bilious output. Troponin was also elevated at 0.42, 0.03, 0.037. EKG showed A-Fib with RVR. Cardiology was consulted and recommended IV beta octavio and hold AC, patient is high risk for any surgical intervention. Urology recommends bilateral nephrostomy tubes for definitive treatment but patient is currently unstable and would benefit from hospice. Nephrology recommends 2 amps of IV bicarb and possible need for hemodialysis. Surgery is also consulted with regard to his SBO recommending conservative management as patient is high risk for surgery. CBC shows WBC count of 15.92, Hg 7.9. BMP shows Na 133, bicarb 16, BUN 98, Cr 6.44, glucose 110 and Ca 6.8. CXR shows bilateral infiltrates, PNA vs pulmonary edema. I discussed the care of this patient with the and daughter extensively. Patient is appropriate for hospice at this time. He would not be a good candidate for hemodialysis given his extensive cardiac history. We will give him another dose of Lasix 80 mg IV in the mean time. After our encounter, RN informed me family would like to enroll in hospice. Consult has been placed. 01/03 Patient was seen and examined. Patient is obtunded. NG tube pulled out last night. CBC shows WBC count 11.7, Hg 7.6. BMP shows bicarb 17, BUN 115, Cr 7.13, glucose 108, Ca 7.3. Iron studies shows Fe 27, Ferritin 804. Case was discussed with and daughter. They are going forward with hospice and comfort care. Patient would benefit from GIP hospice. Discussed with KYM Hernández. 01/04 Patient was seen and examined. More awake and comfortable today. KUB shows resolution of small bowel obstruction. BMP shows worsening renal function with BUN 119, creatinine 7.47. Hospice was consulted yesterday, patient did not qualify for GIP. Case was discussed with hospice nurse conditioner tender, plans to discuss with family regarding hospice at home versus hospice house versus SNF with hospice tomorrow. General: non toxic, no distress, appears at stated age Derm: warm, dry Head: atraumatic, normocephalic, symmetric Eyes: EOMI, no lid lag, anicteric sclera Cardiovascular: good distal perfusion in all 4 extremities Lungs: Breathing comfortably Abdominal: distended, Ext: no gross muscle atrophy, no edema, no contractures Psych: AOx0 Acute hypoxic respiratory failure likely secondary to flash pulmonary edema Atrial fibrillation with RVR High-grade small bowel obstruction Acute kidney injury on chronic kidney disease with moderate to severe bilateral hydronephrosis Sepsis secondary to UTI with history of indwelling Garcia catheter Right psoas hematoma Metabolic acidosis Hyponatremia Elevated lipase and amylase Aortic aneurysm Systolic CHF with EF 20% Chronic conditions: CAD, type II DM, hypertension, hyperlipidemia Based on my assessment of this patient, this patient meets a high complexity level of care. Patient has an acute diagnosis of high grade SBO with MARION on CKD leading to metabolic derangements that poses a threat to life or bodily function. He is also found to have a right psoas hematoma. Acute hypoxic respiratory failure likely secondary to flash pulmonary edema: Lasix 80 mg IV today. Family against HD at this time. Atrial fibrillation with RVR: Metoprolol 5 mg IV BID. Hold Eliquis. Cardiology on board. High-grade small bowel obstruction: NPO. Patient is poor candidate for surgery. Surgery on board. Acute kidney injury on chronic kidney disease with moderate to severe bilateral hydronephrosis: Multifactorial. Obstructive with pre-renal component (poor oral intake, N/V). Urology on board. Patient is poor candidate for surgery. Sepsis secondary to UTI with history of indwelling Garcia catheter: Previous UCx + Pseudomonas. Discontinue antibiotics as patient's family has decided on comfort. Right psoas hematoma: Stop Eliquis. Transfuse if Hg < 7. Metabolic acidosis: Likely due to MARION on CKD. Sodium bicarbonate 650 mg PO BID. Hyponatremia: Patient is hypervolemic. Monitor. Elevated lipase and amylase Aortic aneurysm Systolic CHF with EF 20%: Cautious use of fluids. I have reviewed the following sales development consultant notes: Nephrology, Cardiology note. I have reviewed the results of the following tests: [facility] I have ordered the following tests: I have discussed the care of this patient with the following independent historian: Case discussed with RN Elena, and daughter. I have independently interpreted the following test below: I have discussed the management of this patient with the following physician: Objective - Vital Signs Vital signs: Vital Signs Temp 97.5 F L 01/04/23 12:00 Pulse 111 H 01/04/23 12:00 Resp 14 01/04/23 12:00 BP 154/86 01/04/23 12:00 Pulse Ox 92 L 01/04/23 12:00 FiO2 Intake & Output 01/03/23 01/04/23 01/04/23 18:59 06:59 18:59 Output Total 935 825 500 Balance -935 -825 -500 Weight 81.647 kg Output: Urine 935 825 500 Other: Voiding Method Indwelling Catheter Indwelling Catheter - Labs CBC & Chem 7: 01/03/23 09:34 01/04/23 08:23 Labs: Abnormal Lab Results - Last 24 Hours (Table) 01/04/23 Range/Units 08:23 Chloride 108 H (98-107) mmol/L BUN 119 H* (9-20) mg/dL Creatinine 7.47 H* (0.66-1.25) mg/dL Calcium 7.4 L (8.4-10.2) mg/dL Phosphorus 7.0 H (2.5-4.5) mg/dL Magnesium 3.9 H (1.6-2.3) mg/dL Microbiology - Last 24 Hours (Table) 01/01/23 13:05 Blood Culture - Preliminary Blood 01/01/23 12:55 Blood Culture - Preliminary Blood 01/01/23 18:11 Urine Culture - Final Urine,Catheterized Enterococcus faecalis
[2023-01-05] MEDS: FAMOTIDINE 20 MG TAB PO SCH (07:34)
[2023-01-05] MEDS: TAMSULOSIN 0.4 MG CAP.ER.24H PO SCH (07:35)
[2023-01-05] MEDS: SODIUM BICARBONATE TAB 650 MG TAB PO SCH (07:35)
[2023-01-05] MEDS: METOPROLOL TARTRATE 5 MG/5 ML VIAL IVP SCH (07:56)
[2023-01-05] MEDS: PANTOPRAZOLE 40 MG/10 ML VIAL IVP SCH (07:56)
[2023-01-05] MEDS: FUROSEMIDE 10 MG/ML 10 ML VIAL IV SCH (07:56)
--- NOTE | 2023-01-05 09:23 | P.PN ---
Subjective Patient is seen in follow-up for acute kidney injury on chronic kidney disease. No improvement in renal function. Nonoliguric. Hemodynamically stable. Resting in bed. Poor historian. Vital signs are stable. General: No acute distress. HEENT: Head exam is unremarkable. LUNGS: Scattered rhonchi. HEART: Rate and Rhythm are regular. ABDOMEN: Distention noted. EXTREMITITES: Trace edema. Objective - Vital Signs Vital signs: Vital Signs Temp 97.1 F L 01/04/23 20:00 Pulse 107 H 01/05/23 03:30 Resp 12 01/05/23 03:30 BP 145/89 01/05/23 03:30 Pulse Ox 95 01/05/23 03:30 FiO2 Intake & Output 01/04/23 01/05/23 01/05/23 18:59 06:59 18:59 Intake Total 50 Output Total 1100 1050 Balance -1050 -1050 Intake: Intake, IV Titration 50 Amount Cefepime 1 gm In Sodium 50 Chloride 0.9% 50 ml @ 12. 5 mls/hr IVPB Q12HR [facility] Rx#:[id number] Output: Urine 1100 1050 Other: Voiding Method Indwelling Catheter Indwelling Catheter - Labs CBC & Chem 7: 01/03/23 09:34 01/04/23 08:23 Labs: Microbiology - Last 24 Hours (Table) 01/01/23 12:55 Blood Culture - Preliminary Blood 01/01/23 13:05 Blood Culture - Preliminary Blood Assessment and Plan Plan: Assessment: 1. Acute kidney injury secondary to ATN. Creatinine 7.47 today. Nonoliguric. Creatinine 1.1 in August 2022. 2. Bilateral hydronephrosis with history of bladder cancer status post TURBT 12/18/22. Has chronic Garcia catheter. Seen by urology. 3. Metabolic acidosis secondary to acute kidney injury. On oral bicarb. Better. 4. Anemia Iron deficiency noted. Status post IV iron. On Aranesp. 5. Acute on chronic systolic CHF ejection fraction of 20% with moderate to severe mitral and tricuspid regurgitation. 6. Small bowel obstruction Surgery following. Plan: Continue to monitor renal function and urine output. Refused renal replacement therapy. Maintain IV Lasix. Transition to oral upon discharge. Plan is to go to ECF with hospice.
--- NOTE | 2023-01-05 12:59 | P.PN ---
Subjective Progress Note Date: 01/05/23 Pt is obtunded today. Pending re-evaluation by hospice. Gen: Obtunded, in no apparent distress HEENT: normocephalic, atraumatic, good hearing acuity, moist mucous membranes Resp: breathing comfortably with no accessory muscle use : no SPT, no CVAT, pena catheter is present MSK: no pitting edema, no clubbing General: non toxic, no distress, appears at stated age Derm: warm, dry Head: atraumatic, normocephalic, symmetric Eyes: EOMI, no lid lag, anicteric sclera Cardiovascular: good distal perfusion in all 4 extremities Lungs: Breathing comfortably Abdominal: distended, Ext: no gross muscle atrophy, no edema, no contractures Psych: AOx0 Hospital course: Patient is a 82-year-old male with a PMH of A. fib on Eliquis, HFrEF, CAD urinary retention status post indwelling Pena catheter, acute kidney injury, type II DM, hypertension, hyperlipidemia, who presents to the emergency room with complaints of abdominal pain, nausea and vomiting. Of note, patient was recently hospitalized from 12/14-12/24 for MARION on CKD requiring TURP with Urology. His hospitalization was complicated with diverticulitis, small bowel obstruction and acute delirium which was managed conservatively by surgery. He was discharged to SNF when his symptoms improved and he was able to tolerate diet. In the ED, CBC showed WBC count of 12 and hemoglobin of 8.9. CMP showed sodium 131, bicarb 17, BUN 94, creatinine 6.54, glucose 104, calcium 7.1, albumin 2.5. Magnesium was 3.5. Amylase 141, lipase 1104. Urinalysis positive for moderate blood and large leukocyte esterase. Influenza, RSV, COVID-19 negative. CTAP was done which showed high-grade small bowel obstruction, anasarca, bilateral pleural effusion, extensive perirectal soft tissue thickening and stranding, severely thickened bladder wall with Pena catheter, severe left hydronephrosis and moderate right hydronephrosis, aortic aneurysm measuring 4.4 cm and common iliac aneurysm measuring 2.7 cm on the left, pneumobilia, sigmoid diverticulosis, intramuscular hematoma of the right psoas major measuring 7 x 4.7 cm. Patient is admitted for further management and workup. On 01/02, A-team was called for respiratory distress. He was given Lasix 80 mg IV and transferred to for closer monitoring. NG tube was inserted for SBO to suction with bilious output. Troponin was also elevated at 0.42, 0.03, 0.037. EKG showed A-Fib with RVR. Cardiology was consulted and recommended IV beta octavio and hold AC. Urology recommended bilateral nephrostomy tubes for definitive treatment but patient and family preferred hospice evaluation. Nephrology recommended 2 amps of IV bicarb and possible need for hemodialysis. On 01/03, CBC shows WBC count 11.7, Hg 7.6. BMP shows bicarb 17, BUN 115, Cr 7.13, glucose 108, Ca 7.3. Iron studies shows Fe 27, Ferritin 804. On 01/04, KUB showed resolution of small bowel obstruction. BMP shows worsening renal function with BUN 119, creatinine 7.47. Assessment: Acute hypoxic respiratory failure likely secondary to flash pulmonary edema Paroxysmal Atrial fibrillation with RVR High-grade small bowel obstruction Acute kidney injury on chronic kidney disease with moderate to severe bilateral hydronephrosis Sepsis secondary to UTI with history of indwelling Pena catheter Right psoas hematoma Metabolic acidosis Hyponatremia Elevated lipase and amylase Aortic aneurysm Systolic CHF with EF 20% Plan: Today, patient is afebrile, 131/87, heart rate 109, 94% on 2 L nasal cannula. Pending reevaluation by hospice Continue Lasix 80 mg IV daily Continue darbepoetin 40 g every 72 days Continue 5 mg IV push metoprolol twice a day Antibiotics have been discontinued Patient is DO NOT RESUSCITATE/DO NOT INTUBATE Objective - Vital Signs Vital signs: Vital Signs Temp 97.7 F 01/05/23 11:29 Pulse 109 H 01/05/23 11:29 Resp 15 01/05/23 11:29 BP 131/87 01/05/23 11:29 Pulse Ox 94 L 01/05/23 11:29 FiO2 Intake & Output 01/04/23 01/05/23 01/05/23 18:59 06:59 18:59 Intake Total 50 50 Output Total 1100 1050 725 Balance -4760 -6343 -980 Intake: Intake, IV Titration 50 Amount Cefepime 1 gm In Sodium 50 Chloride 0.9% 50 ml @ 12. 5 mls/hr IVPB Q12HR [facility] Rx#:[id number] Oral 50 Output: Urine 1100 1050 725 Other: Voiding Method Indwelling Catheter Indwelling Catheter Indwelling Catheter # Bowel Movements 1 - Labs CBC & Chem 7: 01/03/23 09:34 01/04/23 08:23 Labs: Microbiology - Last 24 Hours (Table) 01/01/23 12:55 Blood Culture - Preliminary Blood 01/01/23 13:05 Blood Culture - Preliminary Blood
--- NOTE | 2023-01-05 16:38 | CDI ---
Documentation Clarification Form Date: 01/05/2023 04:21:23 PM From: Ankita Hinton RN, CCDS Email: [email or web address] Admit Date: 01/01/2023 12:55:00 PM Patient Name: Dago Lyman Visit Number: [id number] Discharge Date: ATTENTION: The Clinical Documentation Specialists (CDI) and [facility] Coding Staff appreciate your assistance in clarifying documentation. Please respond to the clarification below the line at the bottom and electronically sign. The CDI & [facility] Coding staff will review the response and follow-up if needed. Please note: Queries are made part of the Legal Health Record. If you have any questions, please contact the author of this message via ITS. Dr. Nam Serrato Conflicting documentation has been found in the medical record. As attending physician, please provide clarification. "Does not meet sepsis criteria" is documented in the H&P "Sepsis secondary to UTI with history of indwelling Pena catheter" is documented in the 01/02 progress note. History/Risk Factors: patient was recently hospitalized from 12/14-12/24 for MARION on CKD requiring TURP with Urology. His hospitalization was complicated with diverticulitis, small bowel obstruction and acute delirium which was managed conservatively by surgery. Clinical Indicators: ED: "Cystoscopy on 10/26/22 (chronic pnea placed)" H&P: "Does not meet sepsis criteria." 01/02 IM: "epsis secondary to UTI with history of indwelling Pena catheter: Previous UCx + Pseudomonas." 01/01 VS: Temp 97.7, HR 99, RR 18, BP 130/73 01/02 VS: Temp 97.6, HR 104, RR 16, BP 93/53 01/01 WBC 12.0, Cr 6.54, lactic acid 1.0, +UA, UCX catheterized enterococcus faecalis 01/02 WBC 15.92, Cr 6.44 Treatment: IV Cefepime 1gm at HS 01/01-01/04; 2L 0.9NS IV bolus on 01/01 Please clarify if Sepsis was POA: [ x ] Yes, Sepsis present on admission [ ] No, Sepsis developed after admission [ ] Other (please specify) [ ] Unable to determine MTDD
--- NOTE | 2023-01-05 16:45 | CDI ---
Documentation Clarification Form Date: 01/05/2023 04:39:52 PM From: Ankita Hinton RN, CCDS Email: [email or web address] Admit Date: 01/01/2023 12:55:00 PM Patient Name: Dago Lyman Visit Number: [id number] Discharge Date: ATTENTION: The Clinical Documentation Specialists (CDI) and [facility] Coding Staff appreciate your assistance in clarifying documentation. Please respond to the clarification below the line at the bottom and electronically sign. The CDI & [facility] Coding staff will review the response and follow-up if needed. Please note: Queries are made part of the Legal Health Record. If you have any questions, please contact the author of this message via ITS. Dr. Nam Serrato UTI is documented in the H&P and progress notes and patient has a pena catheter. Additional clarification regarding the etiology of the UTI is requested. History/Risk Factors: patient was recently hospitalized from 12/14-12/24 for MARION on CKD requiring TURP with Urology. His hospitalization was complicated with diverticulitis, small bowel obstruction and acute delirium which was managed conservatively by surgery. Clinical Indicators: ED: "Cystoscopy on 10/26/22 (chronic pena placed)" H&P: "Leukocytosis: Possibly related to UTI." 01/02 IM: "Sepsis secondary to UTI with history of indwelling Pena catheter: Previous UCx + Pseudomonas." 01/01 VS: Temp 97.7, HR 99, RR 18, BP 130/73 01/02 VS: Temp 97.6, HR 104, RR 16, BP 93/53 01/01 WBC 12.0, Cr 6.54, lactic acid 1.0, +UA, UCX catheterized enterococcus faecalis 01/02 WBC 15.92, Cr 6.44 Treatment: IV Cefepime 1gm at HS 01/01-01/04; 2L 0.9NS IV bolus on 01/01 Please clarify the etiology of the UTI, if known: [ x ] Pena catheter [ ] UTI not related to Pena catheter [ ] Other condition, please specify [ ] Unable to determine MTDD
[2023-01-05] MEDS ORDERED: ACETAMINOPHEN SUPPOSITORY 650 MG SUPP RECTAL PRN (20:13)
[2023-01-06] MEDS: TAMSULOSIN 0.4 MG CAP.ER.24H PO SCH (07:44)
[2023-01-06] MEDS: FAMOTIDINE 20 MG TAB PO SCH (07:44)
[2023-01-06] MEDS: PANTOPRAZOLE 40 MG/10 ML VIAL IVP SCH (07:44)
--- NOTE | 2023-01-06 10:45 | P.PN ---
Subjective Progress Note Date: 01/06/23 Pt is able to respond to voice, declines pain, agitation, dyspnea. Gen: Obtunded, in no apparent distress HEENT: normocephalic, atraumatic, good hearing acuity, moist mucous membranes Resp: breathing comfortably with no accessory muscle use : no SPT, no CVAT, pena catheter is present MSK: no pitting edema, no clubbing General: non toxic, no distress, appears at stated age Derm: warm, dry Head: atraumatic, normocephalic, symmetric Eyes: EOMI, no lid lag, anicteric sclera Cardiovascular: good distal perfusion in all 4 extremities Lungs: Breathing comfortably Abdominal: distended, Ext: no gross muscle atrophy, no edema, no contractures Psych: AOx0 Hospital course: Patient is a 82-year-old male with a PMH of A. fib on Eliquis, HFrEF, CAD urinary retention status post indwelling Pena catheter, acute kidney injury, type II DM, hypertension, hyperlipidemia, who presents to the emergency room with complaints of abdominal pain, nausea and vomiting. Of note, patient was recently hospitalized from 12/14-12/24 for MARION on CKD requiring TURP with Urology. His hospitalization was complicated with diverticulitis, small bowel obstruction and acute delirium which was managed conservatively by surgery. He was discharged to SNF when his symptoms improved and he was able to tolerate diet. In the ED, CBC showed WBC count of 12 and hemoglobin of 8.9. CMP showed sodium 131, bicarb 17, BUN 94, creatinine 6.54, glucose 104, calcium 7.1, albumin 2.5. Magnesium was 3.5. Amylase 141, lipase 1104. Urinalysis positive for moderate blood and large leukocyte esterase. Influenza, RSV, COVID-19 neg ative. CTAP was done which showed high-grade small bowel obstruction, anasarca, bilateral pleural effusion, extensive perirectal soft tissue thickening and stranding, severely thickened bladder wall with Pena catheter, severe left hydronephrosis and moderate right hydronephrosis, aortic aneurysm measuring 4.4 cm and common iliac aneurysm measuring 2.7 cm on the left, pneumobilia, sigmoid diverticulosis, intramuscular hematoma of the right psoas major measuring 7 x 4.7 cm. Patient is admitted for further management and workup. On 9/2, A-team was called for respiratory distress. He was given Lasix 80 mg IV and transferred to for closer monitoring. NG tube was inserted for SBO to suction with bilious output. Troponin was also elevated at 0.42, 0.03, 0.037. EKG showed A- Fib with RVR. Cardiology was consulted and recommended IV beta octavio and hold AC. Urology recommended bilateral nephrostomy tubes for definitive treatment but patient and family preferred hospice evaluation. Nephrology recommended 2 amps of IV bicarb and possible need for hemodialysis. On 01/03, CBC shows WBC count 11.7, Hg 7.6. BMP shows bicarb 17, BUN 115, Cr 7.13, glucose 108, Ca 7.3. Iron studies shows Fe 27, Ferritin 804. On 01/04, KUB showed resolution of small bowel obstruction. BMP shows worsening renal function with BUN 119, creatinine 7.47. Assessment: Acute hypoxic respiratory failure likely secondary to flash pulmonary edema Paroxysmal Atrial fibrillation with RVR High-grade small bowel obstruction Acute kidney injury on chronic kidney disease with moderate to severe bilateral hydronephrosis Sepsis secondary to UTI with history of indwelling Pena catheter Right psoas hematoma Metabolic acidosis Hyponatremia Elevated lipase and amylase Aortic aneurysm Systolic CHF with EF 20% Plan: Today, patient is afebrile, 141/91, heart rate 112, 98% on 2 L nasal cannula. daily hospice evaluation Discontinue lasix 80 mg IV daily Discontinue darbepoetin 40 g every 72 days Discontinue 5 mg IV push metoprolol twice a day Antibiotics have been discontinued Patient is DO NOT RESUSCITATE/DO NOT INTUBATE Objective - Vital Signs Vital signs: Vital Signs Temp 96.9 F L 01/06/23 03:37 Pulse 112 H 01/06/23 07:48 Resp 16 01/06/23 07:48 BP 141/91 01/06/23 07:48 Pulse Ox 98 01/06/23 07:48 FiO2 Intake & Output 01/05/23 01/06/23 01/06/23 18:59 06:59 18:59 Intake Total 50 10 Output Total 1125 1150 301 Balance -1075 -1150 -291 Intake: IV 10 Invasive Line 4 10 Oral 50 Output: Urine 1125 1150 300 Stool 1 Other: Voiding Method Indwelling Catheter Indwelling Catheter # Bowel Movements 1 - Labs CBC & Chem 7: 01/03/23 09:34 01/04/23 08:23
--- NOTE | 2023-01-06 12:42 | P.PN ---
Subjective Progress Note Date: 01/06/23 CHIEF COMPLAINT: Bowel obstruction HISTORY OF PRESENT ILLNESS: Patient is confused. Patient admitted to hospital with acute kidney injury following TURP. Lying in bed comfortably. Abdominal x-ray has shown resolution of the bowel obstruction. Currently on a ground diet. Patient is being transitioned to comfort care and possibly inpatient hospice PHYSICAL EXAM: VITAL SIGNS: Reviewed. GENERAL: no acute distress. ABDOMEN: Soft. Nondistended. Nontender. NEUROLOGIC: Confused ASSESSMENT: 1. Small bowel obstruction versus ileus improved PLAN: -Patient being transitioned to comfort care and medicine has consulted hospitalist service. Physician Wig Stylist note has been reviewed by physician. Signing provider agrees with the documented findings, assessment, and plan of care. Objective - Vital Signs Vital signs: Vital Signs Temp 98.2 F 01/06/23 11:32 Pulse 111 H 01/06/23 11:32 Resp 16 01/06/23 11:32 BP 149/88 01/06/23 11:32 Pulse Ox 96 01/06/23 11:32 FiO2 Intake & Output 01/05/23 01/06/23 01/06/23 18:59 06:59 18:59 Intake Total 50 10 Output Total 1125 1150 551 Balance -1075 -1150 -541 Intake: IV 10 Invasive Line 4 10 Oral 50 Output: Urine 1125 1150 550 Stool 1 Other: Voiding Method Indwelling Catheter Indwelling Catheter # Bowel Movements 1 - Labs CBC & Chem 7: 01/03/23 09:34 01/04/23 08:23
[2023-01-07] MEDS: FAMOTIDINE 20 MG TAB PO SCH (09:54)
[2023-01-07] MEDS: PANTOPRAZOLE 40 MG/10 ML VIAL IVP SCH (09:55)
[2023-01-07] MEDS: TAMSULOSIN 0.4 MG CAP.ER.24H PO SCH (09:55)
--- NOTE | 2023-01-07 10:19 | P.PN ---
Subjective Progress Note Date: 01/07/23 Pt declines pain, agitation, dyspnea. Gen: Obtunded, in no apparent distress HEENT: normocephalic, atraumatic, good hearing acuity, moist mucous membranes Resp: breathing comfortably with no accessory muscle use : no SPT, no CVAT, pena catheter is present MSK: no pitting edema, no clubbing General: non toxic, no distress, appears at stated age Derm: warm, dry Head: atraumatic, normocephalic, symmetric Eyes: EOMI, no lid lag, anicteric sclera Cardiovascular: good distal perfusion in all 4 extremities Lungs: Breathing comfortably Abdominal: distended, Ext: no gross muscle atrophy, no edema, no contractures Psych: AOx0 Hospital course: Patient is a 82-year-old male with a PMH of A. fib on Eliquis, HFrEF, CAD urinary retention status post indwelling Pena catheter, acute kidney injury, type II DM, hypertension, hyperlipidemia, who presents to the emergency room with complaints of abdominal pain, nausea and vomiting. Of note, patient was recently hospitalized from 12/14-12/24 for MARION on CKD requiring TURP with Urology. His hospitalization was complicated with diverticulitis, small bowel obstruction and acute delirium which was managed conservatively by surgery. He was discharged to SNF when his symptoms improved and he was able to tolerate diet. In the ED, CBC showed WBC count of 12 and hemoglobin of 8.9. CMP showed sodium 131, bicarb 17, BUN 94, creatinine 6.54, glucose 104, calcium 7.1, albumin 2.5. Magnesium was 3.5. Amylase 141, lipase 1104. Urinalysis positive for moderate blood and large leukocyte esterase. Influenza, RSV, COVID-19 negative. CTAP was done which showed high-grade small bowel obstruction, anasarca, bilateral pleural effusion, extensive perirectal soft tissue thickening and stranding, severely thickened bladder wall with Pena catheter, severe left hydronephrosis and moderate right hydronephrosis, aortic aneurysm measuring 4.4 cm and common iliac aneurysm measuring 2.7 cm on the left, pneumobilia, sigmoid diverticulosis, intramuscular hematoma of the right psoas major measuring 7 x 4.7 cm. Patient is admitted for further management and wo rkup. On 01/02, A-team was called for respiratory distress. He was given Lasix 80 mg IV and transferred to for closer monitoring. NG tube was inserted for SBO to suction with bilious output. Troponin was also elevated at 0.42, 0.03, 0.037. EKG showed A-Fib with RVR. Cardiology was consulted and recommended IV beta octavio and hold AC. Urology recommended bilateral nephrostomy tubes for definitive treatment but patient and family preferred hospice evaluation. Nephrology recommended 2 amps of IV bicarb and possible need for hemodialysis. On 01/03, CBC shows WBC count 11.7, Hg 7.6. BMP shows bicarb 17, BUN 115, Cr 7.13, glucose 108, Ca 7.3. Iron studies shows Fe 27, Ferritin 804. On 01/04, KUB showed resolution of small bowel obstruction. BMP shows worsening renal function with BUN 119, creatinine 7.47. Assessment: Acute hypoxic respiratory failure likely secondary to flash pulmonary edema Paroxysmal Atrial fibrillation with RVR High-grade small bowel obstruction Acute kidney injury on chronic kidney disease with moderate to severe bilateral hydronephrosis Sepsis secondary to UTI with history of indwelling Pena catheter Right psoas hematoma Metabolic acidosis Hyponatremia Elevated lipase and amylase Aortic aneurysm Systolic CHF with EF 20% Plan: Today, patient is afebrile, 116/89, heart rate 116, 94% on 4 L nasal cannula. daily hospice evaluation Discontinue lasix 80 mg IV daily Discontinue darbepoetin 40 g every 72 days Discontinue 5 mg IV push metoprolol twice a day Antibiotics have been discontinued Patient is DO NOT RESUSCITATE/DO NOT INTUBATE Objective - Vital Signs Vital signs: Vital Signs Temp 98.2 F 01/07/23 09:39 Pulse 116 H 01/07/23 09:42 Resp 24 01/07/23 09:42 BP 116/89 01/07/23 09:39 Pulse Ox 94 L 01/07/23 09:39 FiO2 Intake & Output 01/06/23 01/07/23 01/07/23 18:59 06:59 18:59 Intake Total 20 Output Total 851 900 Balance -831 -900 Intake: IV 20 Invasive Line 4 20 Oral 0 Output: Urine 850 900 Stool 1 Other: Voiding Method Indwelling Catheter # Bowel Movements 1 - Labs CBC & Chem 7: 01/03/23 09:34 01/04/23 08:23 Labs: Microbiology - Last 24 Hours (Table) 01/01/23 12:55 Blood Culture - Final Blood 01/01/23 13:05 Blood Culture - Final Blood
[2023-01-08 04:18] VITALS: TEMP 97.4
[2023-01-08] MEDS: FAMOTIDINE 20 MG TAB PO SCH (08:06)
[2023-01-08] MEDS: PANTOPRAZOLE 40 MG/10 ML VIAL IVP SCH (08:06)
[2023-01-08] MEDS: TAMSULOSIN 0.4 MG CAP.ER.24H PO SCH (08:06)
--- NOTE | 2023-01-08 11:13 | P.DS ---
Providers Date of admission: 01/01/23 12:55 Expected date of discharge: 01/08/23 Attending physician: Betito Peña MD Consults: 01/01/23 12:50 Consult Physician Stat Consulting Provider: Kirby Kwok Consult Reason/Comments: MARION on CKD Do you want consulting provider notified?: Yes 01/01/23 15:38 Consult Physician Stat Consulting Provider: Betito Bravo Consult Reason/Comments: Hydronephrosis, previous TURP Do you want consulting provider notified?: Yes Primary care physician: Kvng [facility] [place] Hospital Course: Assessment: Acute hypoxic respiratory failure likely secondary to flash pulmonary edema Paroxysmal Atrial fibrillation with RVR High-grade small bowel obstruction Acute kidney injury on chronic kidney disease with moderate to severe bilateral hydronephrosis Sepsis secondary to UTI with history of indwelling Pena catheter Right psoas hematoma Metabolic acidosis Hyponatremia Elevated lipase and amylase Aortic aneurysm Systolic CHF with EF 20% Hospital course: Patient is a 82-year-old male with a PMH of A. fib on Eliquis, HFrEF, CAD urinary retention status post indwelling Pena catheter, acute kidney injury, type II DM, hypertension, hyperlipidemia, who presents to the emergency room with complaints of abdominal pain, nausea and vomiting. Of note, patient was recently hospitalized from 12/14-12/24 for MARION on CKD requiring TURP with Urology. His hospitalization was complicated with diverticulitis, small bowel obstruction and acute delirium which was managed conservatively by surgery. He was discharged to SNF when his symptoms improved and he was able to tolerate diet. In the ED, CBC showed WBC count of 12 and hemoglobin of 8.9. CMP showed sodium 131, bicarb 17, BUN 94, creatinine 6.54, glucose 104, calcium 7.1, albumin 2.5. Magnesium was 3.5. Amylase 141, lipase 1104. Urinalysis positive for moderate blood and large leukocyte esterase. Influenza, RSV, COVID-19 negative. CTAP was done which showed high-grade small bowel obstruction, anasarca, bilateral pleural effusion, extensive perirectal soft tissue thickening and stranding, severely thickened bladder wall with Pena catheter, severe left hydronephrosis and moderate right hydronephrosis, aortic aneurysm measuring 4.4 cm and common iliac aneurysm measuring 2.7 cm on the left, pneumobilia, sigmoid diverticulosis, intramuscular hematoma of the right psoas major measuring 7 x 4.7 cm. Patient is admitted for further management and workup. On 01/02, A-team was called for respiratory distress. He was given Lasix 80 mg IV and transferred to for closer monitoring. NG tube was inserted for SBO to suction with bilious output. Troponin was also elevated at 0.42, 0.03, 0.037. EKG showed A-Fib with RVR. Cardiology was consulted and recommended IV beta octavio and hold AC. Urology recommended bilateral nephrostomy tubes for definitive treatment but patient and family preferred hospice evaluation. Nephrology recommended 2 amps of IV bicarb and possible need for hemodialysis. On 01/03, CBC shows WBC count 11.7, Hg 7.6. BMP shows bicarb 17, BUN 115, Cr 7.13, glucose 108, Ca 7.3. Iron studies shows Fe 27, Ferritin 804. On 01/04, KUB showed resolution of small bowel obstruction. BMP shows worsening renal function with BUN 119, creatinine 7.47. Pt was discharged to SNF with hospice overlay services. I spent 40 minutes coordinating this discharge on 01/08 Gen: Obtunded, in no apparent distress HEENT: normocephalic, atraumatic, good hearing acuity, moist mucous membranes Resp: breathing comfortably with no accessory muscle use : no SPT, no CVAT, pena catheter is present MSK: no pitting edema, no clubbing Patient Condition at Discharge: Critical Plan - Discharge Summary Discharge Rx Participant: No New Discharge Prescriptions: New Acetaminophen Suppository [Tylenol Suppository] 650 mg RECTAL Q6HR PRN suppositor PRN Reason: Fever And/ Or Pain Acetaminophen Tab [Tylenol] 650 mg PO Q6HR PRN tab PRN Reason: Mild Pain Or Fever > 100.5 Continue Tamsulosin HCl [Flomax] 0.4 mg PO DAILY Famotidine [Pepcid] 20 mg PO DAILY #60 tab Ondansetron [Zofran] 4 mg PO Q8H PRN PRN Reason: Nausea And Vomiting Discontinued Apixaban [Eliquis] 2.5 mg PO BID #60 tab Pravastatin Sodium [Pravachol] 80 mg PO HS #60 tab Magnesium Oxide [Mag-Ox] 400 mg PO BID #60 tab carvediloL [Coreg*] 12.5 mg PO BID Sodium Bicarbonate Tab 650 mg PO BID #60 tab hydrALAZINE HCL [Apresoline] 50 mg PO TID@0900,1300,2100 Discharge Medication List Tamsulosin HCl [Flomax] 0.4 mg PO DAILY 10/29/22 [History] Famotidine [Pepcid] 20 mg PO DAILY #60 tab 12/24/22 [Rx] Ondansetron [Zofran] 4 mg PO Q8H PRN 01/01/23 [History] Acetaminophen Suppository [Tylenol Suppository] 650 mg RECTAL Q6HR PRN suppositor 01/08/23 [Rx] Acetaminophen Tab [Tylenol] 650 mg PO Q6HR PRN tab 01/08/23 [Rx] Follow up Appointment(s)/Referral(s): Kvng Saeed DO [Primary Care Provider] - 1-2 days Discharge Disposition: TRANSFER TO SNF/ECF
[2023-01-08 12:37] VITALS: BP 150/92; PULSE 123; RESP 20
== END 2023-01-08 14:06 | DRG 698 ==
LOC: EC 10:23 → 5NMEDONC 12:55 → 3SCARD 01-02 06:14
PROVIDERS: ADMIT Student in an Organized Health Care Education/Training Program; ATTEND Student in an Organized Health Care Education/Training Program
DX: T83.511A Infection and inflammatory reaction due to indwelling urethral catheter, initial encounter (principal); A41.9 Sepsis, unspecified organism; I50.23 Acute on chronic systolic (congestive) heart failure; J96.01 Acute respiratory failure with hypoxia; N17.0 Acute kidney failure with tubular necrosis; K56.609 Unspecified intestinal obstruction, unspecified as to partial versus complete obstruction; E87.1 Hypo-osmolality and hyponatremia; I13.0 Hypertensive heart and chronic kidney disease with heart failure and stage 1 through stage 4 chronic kidney disease, or unspecified chronic kidney disease; I42.9 Cardiomyopathy, unspecified; I48.19 Other persistent atrial fibrillation; K57.32 Diverticulitis of large intestine without perforation or abscess without bleeding; N13.6 Pyonephrosis; E87.20 Acidosis, unspecified; K56.7 Ileus, unspecified; C67.9 Malignant neoplasm of bladder, unspecified; D50.9 Iron deficiency anemia, unspecified; E11.22 Type 2 diabetes mellitus with diabetic chronic kidney disease; E78.5 Hyperlipidemia, unspecified; E83.39 Other disorders of phosphorus metabolism; F03.90 Unspecified dementia, unspecified severity, without behavioral disturbance, psychotic disturbance, mood disturbance, and anxiety; I08.1 Rheumatic disorders of both mitral and tricuspid valves; I25.10 Atherosclerotic heart disease of native coronary artery without angina pectoris; I72.3 Aneurysm of iliac artery; Z20.822 Contact with and (suspected) exposure to COVID-19; N18.9 Chronic kidney disease, unspecified; Z96.641 Presence of right artificial hip joint; Z51.5 Encounter for palliative care; Z79.01 Long term (current) use of anticoagulants; Z79.899 Other long term (current) drug therapy; Z82.49 Family history of ischemic heart disease and other diseases of the circulatory system; Z86.79 Personal history of other diseases of the circulatory system; Z90.79 Acquired absence of other genital organ(s); Z95.1 Presence of aortocoronary bypass graft; Z95.5 Presence of coronary angioplasty implant and graft; Z87.891 Personal history of nicotine dependence
CPT/HCPCS: 36415; 71045; 74018; 74019; 74176; 80048; 80053; 81001; 82150; 82728; 83540; 83550; 83605; 83690; 83735; 84100; 84484; 85025; 87040; 87077; 87086; 87186; 87636; 93005; 94760; 96374; 96375; 99285